=== PATIENT | female | born 1950 | race Caucasian/White ===

== ENCOUNTER 2019-04-23 15:22 | Inpatient (IN) ==
--- OUTSIDE RECORDS SUMMARY | 2019-04-23 15:25 | External Medical Summary | Continuity of Care Document ---
:1950 Author Name Alireza Kenny Address Unavailable Unavailable , Care Team Providers Name Role Phone NonMNPG M.D. Unavailable [email or web address] [email or web address], NO Unavailable Unavailable Problems Active medical history not documented Allergies and Adverse Reactions Allergy history not documented Medications Medications not documented Procedures Procedures not documented Immunizations Immunizations not documented Plan of Treatment Planned Observations Planned Goals not documented Results No Known Results Results not documented
[2019-04-23] MEDS ORDERED: SODIUM CHLORIDE 0.9% 1000ML 1,000 ML IV ONE (15:27)
[2019-04-23] MEDS ORDERED: PIPERACILLIN/TAZOBACTAM 4.5 GM/120 ML BAG IV ONE (15:27)
[2019-04-23] MEDS ORDERED: PIPERACILL/TAZOBAC CONSULT ACTIVE PRN (15:27)
[2019-04-23 15:41] LABS: Basophils # (auto) 0.03 K/uL (0-0.2); Basophils % (auto) 0.3 %; Eosinophils # (auto) 0.26 K/uL (0-0.5); Eosinophils % (auto) 2.8 %; Hematocrit (blood only) 40.6 % (37-47); Hemoglobin 13.9 g/dL (12.0-16.0); Immature Granulocytes # (auto) 0.03 K/uL (0.00-0.02); Immature Granulocytes % (auto) 0.3 %; Lymphocytes # (auto) 2.79 K/uL (1.2-3.4); Lymphocytes % (auto) 29.6 %; Mean Corpuscular Hgb Conc 34.2 g/dL (32-36); Mean Corpuscular Volume 89.6 fL (80-100); Mean Platelet Volume 9.5 fL (7.4-10.4); Monocytes # (auto) 0.76 K/uL (0.11-0.59); Monocytes % (auto) 8.1 %; Neutrophils # (auto) 5.56 K/uL (1.4-6.5); Neutrophils % (auto) 58.9 %; Platelet Count 270 K/uL (130-400); RDW Coefficient of Variation 14.9 % (11.5-14.5); RDW Standard Deviation 48.4 fL (36.4-46.3); Red Blood Count 4.53 M/uL (4.2-5.4); White Blood Count 9.43 K/uL (4.8-10.8)
[2019-04-23] MEDS ORDERED: PROPOFOL IV EMULSION 10 MG/ML 100 ML VIAL IV ONE (15:41)
[2019-04-23] MEDS ORDERED: PROPOFOL 1,000 MG/100 ML VIAL IV SCH (15:57)
--- NOTE | 2019-04-23 16:05 | XRay Report ---
XR femur LT 2V routine CLINICAL HISTORY: fall trauma. Pain. COMPARISON: None. DISCUSSION: Severely limited exam due to patient body habitus. Pre-existing total left knee arthropla sty. Nondiagnostic evaluation of the left hip. There is no evidence for soft tissue swelling. IMPRESSION: 1. Severely limited exam due to body habitus. 2. Nondiagnostic evaluation of the left hip 3. The remainder of the femur is intact The above report was generated using voice recognition software. It may contain grammatical, syntax or spelling errors. Electronically signed by: Jignesh Davis M.D. 04/23/2019 4:04 PM
--- NOTE | 2019-04-23 16:06 | XRay Report ---
XR chest 1V portable CLINICAL HISTORY: Sepsis dyspnea COMPARISON STUDY: 05/11/2009 FINDINGS: Endotracheal tube 2 cm above the guilherme. Mild nonspecific prominence of bronchovascular mar kings. Diaphragms are smooth. Slight prominence left mid lung markings IMPRESSION: Endotracheal tube 2 cm above the guilherme. Potential early parenchymal infiltrate left mid lung. The above report was generated using voice recognition software. It may contain grammatical, syntax or spelling errors. Electronically signed by: Jignesh Davis M.D. 04/23/2019 4:05 PM
[2019-04-23 16:07] LABS: Base Excess VBG 5.4 mEq/L; Oxygen Saturation VBG 73.5 %; pH VBG 7.37 (7.36-7.41)
[2019-04-23 16:19] LABS: Alanine Aminotransferase 28 U/L (12-78); Albumin Globulin Ratio 0.7 (0.9-2); Albumin Level 3.2 gm/dl (3.4-5.0); Alkaline Phosphatase 137 U/L (45-117); BUN Creatinine Ratio 11.1 (10-20); Bilirubin,Total 0.3 mg/dl (0.2-1); Blood Urea Nitrogen 12 mg/dl (7-18); C Reactive Protein 0.72 mg/dl (0-0.29); Calcium 8.6 mg/dl (8.5-10.1); Carbon Dioxide 27 mmol/L (21-32); Chloride 103 mmol/L (98-107); Creatinine Clr Calc Pharmacy 65.6 ml/min; Est GFR (African American) 61.3; Est GFR (Non-African American) 52.9; Globulin 4.4 gm/dl (2.5-4.0); Glucose 192 mg/dl (70-99); NT Pro B Type Natriuretic Pept 80 pg/ml (0-900); Total Protein 7.6 gm/dl (6.4-8.2); Troponin I < 0.015 ng/ml (0-0.045)
[2019-04-23 16:25] LABS: Appearance Urine Cloudy (Clear); Bacteria Urine Automated Negative (Negative); Bilirubin Urine Negative (Negative); Blood Urine Trace (Negative); Color Urine Yellow; Epithelial Cell Urine Auto >30 /lpf (0-5); Glucose Urine UA Negative (Negative); Ketones Urine Negative (Negative); Leukocyte Esterase Urine Negative (Negative); Nitrite Urine Negative (Negative); Protein Urine Negative (Negative); Specific Gravity Urine 1.007 (1.000-1.030); Urobilinogen Urine Negative (Negative)
[2019-04-23 16:29] LABS: Prothrombin Time 9.9 Seconds (9.0-12.0)
[2019-04-23 16:31] LABS: Potassium 4.7 mmol/L (3.5-5.1); Sodium 138 mmol/L (136-145)
[2019-04-23 16:32] LABS: iSTAT Creatinine 1.1 mg/dl (0.6-1.3); iSTAT Hemoglobin 14.3 g/dl (12.0-16.0); iSTAT Ionized Calcium 1.1 mmol/l (1.12-1.32); iSTAT Potassium 4.4 mEq/L (3.3-5.0)
[2019-04-23 16:39] LABS: Aspartate Aminotransferase 24 U/L (15-37); Magnesium 2.1 mg/dl (1.8-2.4)
[2019-04-23 16:40] LABS: RBC Urine Automated 0-4 /hpf (0-4)
[2019-04-23] MEDS ORDERED: OPTIRAY 320 125ml IV PRN (16:43)
[2019-04-23 16:45] LABS: Amphetamines+Metham, Urine Neg (Neg); Barbiturates, Urine Neg (Neg); Benzodiazepine, Urine Neg (Neg); Cocaine, Urine Neg (Neg); MDMA (Ecstacy), Urine Neg (Neg); Methadone, Urine Neg (Neg); Opiate, Urine Neg (Neg); Phencyclidine, Urine Neg (Neg)
--- NOTE | 2019-04-23 16:48 | CT Scan Report ---
CT head/brain wo con CLINICAL HISTORY: Unresponsive patient status post head trauma COMPARISON STUDY: 01/20/2010 TECHNIQUE: Axial CT of the brain is performed from the vertex to the skull base. IV contrast was not administered for this examination. A dose lowering technique was utilized adhering to the principles of ALARA. CT DOSE: FINDINGS: No intra or extra-axial mass lesions are visualized. There is no CT evidence of acute cortical infarc tion. There is no evidence of midline shift. There is no acute hemorrhage. No calvarial fractures ar e visualized. There are patchy white matter hypodensities likely on a small vessel basis. There is an old right bas al ganglia lacunar infarct There is no evidence of pathologic ventricular dilatation. There is mild basal ganglial mineralization. There is no evidence of acute sinusitis. There is fluid within the nasopharynx. IMPRESSION: No acute intracranial findings Electronically signed by: Alexis Ta M.D. 04/23/2019 4:47 PM
--- NOTE | 2019-04-23 16:51 | CT Scan Report ---
CT OF THE CERVICAL SPINE CLINICAL HISTORY: Trauma. Patient is unresponsive. COMPARISON STUDY: No previous studies for comparison. CT DOSE: TECHNIQUE: CT scan of the cervical spine was performed from the skull base to the thoracic inlet. Virginie ges are reviewed in the axial, sagittal, and coronal planes. IV contrast was not administered for thi s examination. A dose lowering technique was utilized adhering to the principles of ALARA. FINDINGS: An endotracheal tube is visualized. There is fluid in nasopharynx. There is prevertebral soft tissue widening/edema. No acute fractures or subluxations are visualized. There are multilevel degenerative changes IMPRESSION: 1. Prevertebral soft tissue edema 2. Multilevel degenerative change 3. No acute fractures or traumatic subluxations identified. Electronically signed by: Alexis Ta M.D. 04/23/2019 4:50 PM
--- NOTE | 2019-04-23 16:56 | CT Scan Report ---
CT ANGIOGRAM OF THE CHEST CLINICAL HISTORY: Trauma. Unresponsive patient. Possible pulmonary embolus. COMPARISON STUDY: No previous studies for comparison. TECHNIQUE: Following the IV administration of 119 mL of Optiray-320, CT angiogram of the thorax was p erformed from the thoracic inlet to the lung bases utilizing the pulmonary embolus protocol. Images a re reviewed in the axial, sagittal, and coronal planes. IV contrast was administered without complica tion. MIP imaging was performed. A dose lowering technique was utilized adhering to the principles o f ALARA. CT DOSE: 3558.72 mGy.cm FINDINGS: No pathologically enlarged axillary mediastinal or hilar lymph nodes were visualized. There was no evidence of thoracic aortic dilatation. There were no pulmonary artery filling defects to indicate acute pulmonary embolism. No pleural effusions are visualized. There is an endotracheal tube with its tip 1 cm above the guilherme. There are bilateral pulmonary airsp yelena opacities, most pronounced within the left lower lobe and right upper lobe. Diagnostic considerat ions include atelectasis, pneumonia, or aspiration. IMPRESSION: 1. No evidence of acute pulmonary embolism 2. Endotracheal tube positioned with its tip 1 cm above the guilherme. 3. Bilateral pulmonary airspace opacities. Atelectasis versus multifocal pneumonia versus aspiration. Electronically signed by: Alexis Ta M.D. 04/23/2019 4:55 PM
--- NOTE | 2019-04-23 16:58 | CT Scan Report ---
CT abd pelvis IV con only CT DOSE: HISTORY: Trauma fall TECHNIQUE: Multiaxial CT images of the abdomen and pelvis were performed following the use of intrave nous contrast. A dose lowering technique was utilized adhering to the principles of ALARA. COMPARISON STUDY: None. FINDINGS: Left basilar parenchymal infiltrate. Atelectasis right base. Mild fatty replacement of the liver. The adrenal glands are normal. Moderate cortical scarring of the kidneys bilaterally. No evide nce for hydronephrosis. Nonobstructive bowel pattern. There is a Santos catheter within a collapsed bl adder. No significant free fluid within the pelvic cul-de-sac. IMPRESSION: 1. Left basilar parenchymal infiltrate with mild right basilar dependent atelectasis. 2. Otherwise no acute process in the abdomen or pelvis. 3. Degenerative changes of the low thoracic and lumbar spine with no acute posttraumatic abnormality. The above report was generated using voice recognition software. It may contain grammatical, syntax or spelling errors. Electronically signed by: Jignesh Davis M.D. 04/23/2019 4:57 PM
[2019-04-23] MEDS ORDERED: fentaNYL citrate 100 MCG/2 ML VIAL ONE (17:27)
[2019-04-23] MEDS ORDERED: fentaNYL citrate 100 MCG/2 ML VIAL IV ONE (17:38)
[2019-04-23 18:33] LABS: Total Protein CSF 90.3 mg/dl (15-45)
--- NOTE | 2019-04-23 18:33 | Critical Care Consultation ---
Date of Consultation April 23, 2019 Assessment & Plan (1) Acute encephalopathy: Reason Critically Ill: 69-year-old female with acute encephalopathy and acute hypoxic respiratory failure requiring intubation PLAN: Neuro: Acute encephalopathy -This appears to have resolved. She does not see appear to have a focal neurologic exam -MRI to rule out CVA versus TIA -EEG to rule out seizure with postictal period. Resp: Acute hypoxic respiratory failure -Probable atelectasis possible aspiration -Patient's procalcitonin is negative, discontinue antibiotics -Patient successfully liberated from ventilator while in the emergency department. CV: Hypertension -Continue home antihypertensives Fluids/Renal: Creatinine within normal limits -Doubt gabapentin overdose with normal renal function and rapid improvement in mental status ID: Initial broad-spectrum antibiotics given emergency department since discontinued -Lactic acid normal, procalcitonin normal, white count normal, afebrile GI/Nutrition: N.p.o. until tomorrow morning Heme: DVT prophylaxis: Lovenox Endocrine: ICU hyperglycemia protocol Baseline diabetes Vascular access: Peripheral IVs Code Status: Full code I have personally spent 85 minutes of critical care time in the direct management of this patient. This is a life/limb threatening event. This includes time spent evaluating patient, direct bedside care, chart review, placing orders, interpretation of diagnostic studies, discussion with consultants, patient, and/or family members regarding treatment decisions, as well as other required patient management activities. This time is exclusive of all separately billable procedures, and teaching time and separate from and in addition to any other critical care service time. (2) Respiratory failure with hypoxia: History of Present Illness Reason for Consultation: Acute respiratory failure Requesting Physician: Isaac Esquviel Attending Physician: Raquel LYNN History of Present Illness Patient 69-year-old female who was found in her apartment complex relatively unresponsive. They called [facility] to evaluate her found that she was experiencing decreased responsiveness and transported to [facility] for further evaluation. On [facility] she continued to drop her oxygen saturation and was significantly altered per ED physician report with a GCS around 6 and the intubated the patient. A extensive work-up was undertaken including lumbar puncture results of which are still pending at this time however the patient had significantly increasing responsiveness. During my evaluation in the emergency department she is able to follow complex commands on minimal vent settings and we proceeded with extubation. Subsequent to the extubation she does not have a significant recall of what oc curred today. In review of her medication lists she is on gabapentin, Lexapro, clonazepam, doxepin. There is a possibility she may have taken an additional dose of medication she does not have a pillbox and her belongings with her. She denies chest pain. She denies fevers or chills. She denies urgency frequency or burning with urination. Allergies Allergy/AdvReac Type Severity Reaction Status Date / Time latex Allergy Unknown rash Verified 01/23/12 11:02 Home Medications Home Medications Medication Instructions Recorded Confirmed Type atorvastatin 80 mg PO HS 04/23/19 04/23/19 History buspirone 5 mg PO BID 04/23/19 04/23/19 History clonazepam 1 mg PO BID 04/23/19 04/23/19 History doxepin 25 mg PO HS 04/23/19 04/23/19 History ergocalciferol (vitamin D2) 50,000 unit PO UD 04/23/19 04/23/19 History [Vitamin D2] escitalopram oxalate 30 mg PO QAM 04/23/19 04/23/19 History gabapentin 300 mg PO TID 04/23/19 04/23/19 History linagliptin [Tradjenta] 5 mg PO DAILY 04/23/19 04/23/19 History lisinopril 2.5 mg PO DAILY 04/23/19 04/23/19 History Patient History Medical History Stomach problems Emphysema lung Diabetes HTN (hypertension) Heart disease Family History Other Diabetes Heart disease Hypertension Social History Feels Safe at Home: Yes Smoking Status: Unknown if ever smoked Review of Systems Review of Systems: All systems reviewed & are unremarkable except as noted in HPI & below Physical Exam Physical Exam: General: Elderly female appears older than her stated age I have reviewed the recorded vital signs Neurological: RASS score: 0, Moves all 4 extremities, cranial nerves II through XII appear to be intact, no pronator drift. Possible extinction of both the upper and lower extremities however the patient is still recovering from propofol sedation. Psychological: GCS 15 following complex commands Eyes: Pupils are equal, round and reactive to light, anicteric sclera. Symmetrical lids. HENT: Oropharynx is clear, edentulous, moist mucous membranes. Neck: Supple. Symmetric. trachea midline. No thyromegaly. Cardiovascular: Normal peripheral perfusion. Distal pulses and capillary refill intact. No JVD. Respiratory: Respirations are non-labored, no accessory muscle use. Breath sounds are equal. Gastrointestinal: Soft. Non-distended. Lymphatic: No cervical lymphadenopathy. Musculoskeletal: No deformity. No clubbing nor cyanosis., 5 out of 5 strength of both the bilateral upper and lower extremities Results & Data Vital Signs (Past 12 Hours) Vital Signs Temp Pulse Pulse Resp BP BP Pulse Ox 04/23/19 18:15 99 H 20 113/72 96 04/23/19 17:51 108 H 20 133/93 98 04/23/19 17:40 110 H 20 131/86 98 04/23/19 17:03 101 H 12 183/116 H 95 04/23/19 16:56 12 04/23/19 16:55 107 H 12 195/122 H 93 04/23/19 16:52 109 H 12 188/144 H 93 04/23/19 16:20 108 H 12 192/122 H 96 04/23/19 16:04 100 04/23/19 15:54 37.5 C 91 H 14 132/70 100 04/23/19 15:51 113 H 12 100 Laboratory Results 04/23/19 04/23/19 04/23/19 Range/Units 17:30 17:30 17:30 WBC (4.8-10.8) K/uL RBC (4.2-5.4) M/uL Hgb (12.0-16.0) g/dL POC Hgb (12.0-16.0) g/dl Hct (37-47) % POC Hct (37-47) % MCV (80-100) fL MCH (25-34) pg MCHC (32-36) g/dL RDW Std Deviation (36.4-46.3) fL RDW Coeff of Diego (11.5-14.5) % Plt Count (130-400) K/uL MPV (7.4-10.4) fL Immature Gran % (Auto) % Neut % (Auto) % Lymph % (Auto) % [place] % (Auto) % Eos % (Auto) % Baso % (Auto) % Immature Gran # (Auto) (0.00-0.02) K/uL Neut # (Auto) (1.4-6.5) K/uL Lymph # (Auto) (1.2-3.4) K/uL [place] # (Auto) (0.11-0.59) K/uL Eos # (Auto) (0-0.5) K/uL Baso # (Auto) (0-0.2) K/uL ESR (0-21) mm/hr PT INR APTT PTT Ratio VBG pH (7.36-7.41) VBG pCO2 (38-50) mmHg VBG pO2 mmHg VBG HCO3 mmol/L VBG O2 Saturation % VBG Base Excess mEq/L Barometric Pressure mm/Hg POC Sodium (135-144) mEq/L Sodium (136-145) mmol/L POC Potassium (3.3-5.0) mEq/L Potassium (3.5-5.1) mmol/L POC Chloride (101-112) mEq/L Chloride (98-107) mmol/L Carbon Dioxide (21-32) mmol/L POC Total CO2 (24-31) mEq/l Anion Gap (3-11) POC Anion Gap (16-25) mmol/L POC BUN (7-18) mg/dl BUN (7-18) mg/dl Creatinine (0.6-1.2) mg/dl POC Creatinine (0.6-1.3) mg/dl Est Cr Clr Drug Dosing ml/min Est GFR ( Amer) Est GFR (Non-Af Amer) BUN/Creatinine Ratio (10-20) Glucose (70-99) mg/dl POC Glucose (other) (70-99) mg/dl Osmolality (280-300) mOsm/kg Lactate (0.4-2.0) mmol/L Calcium (8.5-10.1) mg/dl POC Ioniz Calcium Ale (1.12-1.32) mmol/l Magnesium (1.8-2.4) mg/dl Total Bilirubin (0.2-1) mg/dl AST (15-37) U/L ALT (12-78) U/L Alkaline Phosphatase (45-117) U/L Troponin I (0-0.045) ng/ml C-Reactive Protein (0-0.29) mg/dl NT-Pro-B Natriuret Pep (0-900) pg/ml Total Protein (6.4-8.2) gm/dl Albumin (3.4-5.0) gm/dl Globulin (2.5-4.0) gm/dl Albumin/Globulin Ratio (0.9-2) Procalcitonin (0-0.5) ng/ml Urine Color Urine Appearance (Clear) Urine pH (4.5-7.5) Ur Specific [place] (1.000-1.030) Urine Protein (Negative) Urine Glucose (UA) (Negative) Urine Ketones (Negative) Urine Blood (Negative) Urine Nitrite (Negative) Urine Bilirubin (Negative) Urine Urobilinogen (Negative) Ur Leukocyte Esterase (Negative) Urine WBC (Auto) (0-5) /hpf Urine RBC (Auto) (0-4) /hpf U Hyaline Cast (Auto) (0-5) /lpf U Epithel Cells (Auto) (0-5) /lpf Urine Bacteria (Auto) (Negative) Urine Yeast (None Prsent) CSF Appearance Pending CSF Color Pending Xanthrochromic Pending CSF WBC Pending CSF RBC Pending CSF Cell Count Tube # Pending CSF Chemistry Tube # Pending CSF Glucose Pending CSF Total Protein Cancelled Pending Urine Opiates Screen (Neg) Ur Methadone, Qual (Neg) Urine Barbiturates (Neg) Ur Phencyclidine (PCP) (Neg) U Amphetamin/Meth Scrn (Neg) MDMA (Ecstasy) Screen (Neg) U Benzodiazepines Scrn (Neg) Ur Cocaine Metabolite (Neg) U Marijuana (THC) Screen (Neg) Ethyl Alcohol mg/dL (0-3) mg/dl 04/23/19 04/23/19 04/23/19 Range/Units 16:19 16:03 15:47 WBC (4.8-10.8) K/uL RBC (4.2-5.4) M/uL Hgb (12.0-16.0) g/dL POC Hgb 14.3 (12.0-16.0) g/dl Hct (37-47) % POC Hct 42 (37-47) % MCV (80-100) fL MCH (25-34) pg MCHC (32-36) g/dL RDW Std Deviation (36.4-46.3) fL RDW Coeff of [place] (11.5-14.5) % Plt Count (130-400) K/uL MPV (7.4-10.4) fL Immature Gran % (Auto) % Neut % (Auto) % Lymph % (Auto) % [place] % (Auto) % Eos % (Auto) % Baso % (Auto) % Immature Gran # (Auto) (0.00-0.02) K/uL Neut # (Auto) (1.4-6.5) K/uL Lymph # (Auto) (1.2-3.4) K/uL [place] # (Auto) (0.11-0.59) K/uL Eos # (Auto) (0-0.5) K/uL Baso # (Auto) (0-0.2) K/uL ESR (0-21) mm/hr PT 9.9 INR 1.0 APTT PTT Ratio VBG pH (7.36-7.41) VBG pCO2 (38-50) mmHg VBG pO2 mmHg VBG HCO3 mmol/L VBG O2 Saturation % VBG Base Excess mEq/L Barometric Pressure mm/Hg POC Sodium 139 (135-144) mEq/L Sodium (136-145) mmol/L POC Potassium 4.4 (3.3-5.0) mEq/L Potassium (3.5-5.1) mmol/L POC Chloride 100 L (101-112) mEq/L Chloride (98-107) mmol/L Carbon Dioxide (21-32) mmol/L POC Total CO2 29 (24-31) mEq/l Anion Gap (3-11) POC Anion Gap 15.0 L (16-25) mmol/L POC BUN 11 (7-18) mg/dl BUN (7-18) mg/dl Creatinine (0.6-1.2) mg/dl POC Creatinine 1.1 (0.6-1.3) mg/dl Est Cr Clr Drug Dosing ml/min Est GFR ( Amer) Est GFR (Non-Af Amer) BUN/Creatinine Ratio (10-20) Glucose (70-99) mg/dl POC Glucose (other) 147 H (70-99) mg/dl Osmolality (280-300) mOsm/kg Lactate (0.4-2.0) mmol/L Calcium (8.5-10.1) mg/dl POC Ioniz Calcium Ale 1.10 L (1.12-1.32) mmol/l Magnesium (1.8-2.4) mg/dl Total Bilirubin (0.2-1) mg/dl AST (15-37) U/L ALT (12-78) U/L Alkaline Phosphatase (45-117) U/L Troponin I (0-0.045) ng/ml C-Reactive Protein (0-0.29) mg/dl NT-Pro-B Natriuret Pep (0-900) pg/ml Total Protein (6.4-8.2) gm/dl Albumin (3.4-5.0) gm/dl Globulin (2.5-4.0) gm/dl Albumin/Globulin Ratio (0.9-2) Procalcitonin (0-0.5) ng/ml Urine Color Urine Appearance (Clear) Urine pH (4.5-7.5) Ur Specific [place] (1.000-1.030) Urine Protein (Negative) Urine Glucose (UA) (Negative) Urine Ketones (Negative) Urine Blood (Negative) Urine Nitrite (Negative) Urine Bilirubin (Negative) Urine Urobilinogen (Negative) Ur Leukocyte Esterase (Negative) Urine WBC (Auto) (0-5) /hpf Urine RBC (Auto) (0-4) /hpf U Hyaline Cast (Auto) (0-5) /lpf U Epithel Cells (Auto) (0-5) /lpf Urine Bacteria (Auto) (Negative) Urine Yeast (None Prsent) CSF Appearance CSF Color Xanthrochromic CSF WBC CSF RBC CSF Cell Count Tube # CSF Chemistry Tube # CSF Glucose CSF Total Protein Urine Opiates Screen Neg (Neg) Ur Methadone, Qual Neg (Neg) Urine Barbiturates Neg (Neg) Ur Phencyclidine (PCP) Neg (Neg) U Amphetamin/Meth Scrn Neg (Neg) MDMA (Ecstasy) Screen Neg (Neg) U Benzodiazepines Scrn Neg (Neg) Ur Cocaine Metabolite Neg (Neg) U Marijuana (THC) Screen Neg (Neg) Ethyl Alcohol mg/dL (0-3) mg/dl 04/23/19 04/23/19 04/23/19 Range/Units 15:47 15:40 15:40 WBC (4.8-10.8) K/uL RBC (4.2-5.4) M/uL Hgb (12.0-16.0) g/dL POC Hgb (12.0-16.0) g/dl Hct (37-47) % POC Hct (37-47) % MCV (80-100) fL MCH (25-34) pg MCHC (32-36) g/dL RDW Std Deviation (36.4-46.3) fL RDW Coeff of [place] (11.5-14.5) % Plt Count (130-400) K/uL MPV (7.4-10.4) fL Immature Gran % (Auto) % Neut % (Auto) % Lymph % (Auto) % [place] % (Auto) % Eos % (Auto) % Baso % (Auto) % Immature Gran # (Auto) (0.00-0.02) K/uL Neut # (Auto) (1.4-6.5) K/uL Lymph # (Auto) (1.2-3.4) K/uL [place] # (Auto) (0.11-0.59) K/uL Eos # (Auto) (0-0.5) K/uL Baso # (Auto) (0-0.2) K/uL ESR (0-21) mm/hr PT INR APTT PTT Ratio VBG pH 7.37 (7.36-7.41) VBG pCO2 57 H (38-50) mmHg VBG pO2 41 mmHg VBG HCO3 33 mmol/L VBG O2 Saturation 73.5 % VBG Base Excess 5.4 mEq/L Barometric Pressure 731.6 mm/Hg POC Sodium (135-144) mEq/L Sodium (136-145) mmol/L POC Potassium (3.3-5.0) mEq/L Potassium (3.5-5.1) mmol/L POC Chloride (101-112) mEq/L Chloride (98-107) mmol/L Carbon Dioxide (21-32) mmol/L POC Total CO2 (24-31) mEq/l Anion Gap (3-11) POC Anion Gap (16-25) mmol/L POC BUN (7-18) mg/dl BUN (7-18) mg/dl Creatinine (0.6-1.2) mg/dl POC Creatinine (0.6-1.3) mg/dl Est Cr Clr Drug Dosing ml/min Est GFR ( Amer) Est GFR (Non-Af Amer) BUN/Creatinine Ratio (10-20) Glucose (70-99) mg/dl POC Glucose (other) (70-99) mg/dl Osmolality (280-300) mOsm/kg Lactate (0.4-2.0) mmol/L Calcium (8.5-10.1) mg/dl POC Ioniz Calcium Ale (1.12-1.32) mmol/l Magnesium (1.8-2.4) mg/dl Total Bilirubin (0.2-1) mg/dl AST (15-37) U/L ALT (12-78) U/L Alkaline Phosphatase (45-117) U/L Troponin I (0-0.045) ng/ml C-Reactive Protein (0-0.29) mg/dl NT-Pro-B Natriuret Pep (0-900) pg/ml Total Protein (6.4-8.2) gm/dl Albumin (3.4-5.0) gm/dl Globulin (2.5-4.0) gm/dl Albumin/Globulin Ratio (0.9-2) Procalcitonin (0-0.5) ng/ml Urine Color Yellow Urine Appearance Cloudy A (Clear) Urine pH 7.0 (4.5-7.5) Ur Specific [place] 1.007 (1.000-1.030) Urine Protein Negative (Negative) Urine Glucose (UA) Negative (Negative) Urine Ketones Negative (Negative) Urine Blood Trace H (Negative) Urine Nitrite Negative (Negative) Urine Bilirubin Negative (Negative) Urine Urobilinogen Negative (Negative) Ur Leukocyte Esterase Negative (Negative) Urine WBC (Auto) 1-5 (0-5) /hpf Urine RBC (Auto) 0-4 (0-4) /hpf U Hyaline Cast (Auto) 1-5 (0-5) /lpf U Epithel Cells (Auto) >30 H (0-5) /lpf Urine Bacteria (Auto) Negative (Negative) Urine Yeast Present A (None Prsent) CSF Appearance CSF Color Xanthrochromic CSF WBC CSF RBC CSF Cell Count Tube # CSF Chemistry Tube # CSF Glucose CSF Total Protein Urine Opiates Screen (Neg) Ur Methadone, Qual (Neg) Urine Barbiturates (Neg) Ur Phencyclidine (PCP) (Neg) U Amphetamin/Meth Scrn (Neg) MDMA (Ecstasy) Screen (Neg) U Benzodiazepines Scrn (Neg) Ur Cocaine Metabolite (Neg) U Marijuana (THC) Screen (Neg) Ethyl Alcohol mg/dL < 3.0 (0-3) mg/dl 04/23/19 04/23/19 04/23/19 Range/Units 15:40 15:06 15:06 WBC (4.8-10.8) K/uL RBC (4.2-5.4) M/uL Hgb (12.0-16.0) g/dL POC Hgb (12.0-16.0) g/dl Hct (37-47) % POC Hct (37-47) % MCV (80-100) fL MCH (25-34) pg MCHC (32-36) g/dL RDW Std Deviation (36.4-46.3) fL RDW Coeff of Diego (11.5-14.5) % Plt Count (130-400) K/uL MPV (7.4-10.4) fL Immature Gran % (Auto) % Neut % (Auto) % Lymph % (Auto) % [place] % (Auto) % Eos % (Auto) % Baso % (Auto) % Immature Gran # (Auto) (0.00-0.02) K/uL Neut # (Auto) (1.4-6.5) K/uL Lymph # (Auto) (1.2-3.4) K/uL [place] # (Auto) (0.11-0.59) K/uL Eos # (Auto) (0-0.5) K/uL Baso # (Auto) (0-0.2) K/uL ESR (0-21) mm/hr PT INR APTT PTT Ratio VBG pH (7.36-7.41) VBG pCO2 (38-50) mmHg VBG pO2 mmHg VBG HCO3 mmol/L VBG O2 Saturation % VBG Base Excess mEq/L Barometric Pressure mm/Hg POC Sodium (135-144) mEq/L Sodium 138 (136-145) mmol/L POC Potassium (3.3-5.0) mEq/L Potassium 4.7 (3.5-5.1) mmol/L POC Chloride (101-112) mEq/L Chloride 103 (98-107) mmol/L Carbon Dioxide 27 (21-32) mmol/L POC Total CO2 (24-31) mEq/l Anion Gap 8.0 (3-11) POC Anion Gap (16-25) mmol/L POC BUN (7-18) mg/dl BUN 12 (7-18) mg/dl Creatinine 1.07 (0.6-1.2) mg/dl POC Creatinine (0.6-1.3) mg/dl Est Cr Clr Drug Dosing 65.6 ml/min Est GFR ( Amer) 61.3 Est GFR (Non-Af Amer) 52.9 BUN/Creatinine Ratio 11.1 (10-20) Glucose 192 H (70-99) mg/dl POC Glucose (other) (70-99) mg/dl Osmolality 296 (280-300) mOsm/kg Lactate 1.9 (0.4-2.0) mmol/L Calcium 8.6 (8.5-10.1) mg/dl POC Ioniz Calcium Ale (1.12-1.32) mmol/l Magnesium 2.1 (1.8-2.4) mg/dl Total Bilirubin 0.3 (0.2-1) mg/dl AST 24 (15-37) U/L ALT 28 (12-78) U/L Alkaline Phosphatase 137 H (45-117) U/L Troponin I < 0.015 (0-0.045) ng/ml C-Reactive Protein 0.72 H (0-0.29) mg/dl NT-Pro-B Natriuret Pep 80 (0-900) pg/ml Total Protein 7.6 (6.4-8.2) gm/dl Albumin 3.2 L (3.4-5.0) gm/dl Globulin 4.4 H (2.5-4.0) gm/dl Albumin/Globulin Ratio 0.7 L (0.9-2) Procalcitonin (0-0.5) ng/ml Urine Color Urine Appearance (Clear) Urine pH (4.5-7.5) Ur Specific [place] (1.000-1.030) Urine Protein (Negative) Urine Glucose (UA) (Negative) Urine Ketones (Negative) Urine Blood (Negative) Urine Nitrite (Negative) Urine Bilirubin (Negative) Urine Urobilinogen (Negative) Ur Leukocyte Esterase (Negative) Urine WBC (Auto) (0-5) /hpf Urine RBC (Auto) (0-4) /hpf U Hyaline Cast (Auto) (0-5) /lpf U Epithel Cells (Auto) (0-5) /lpf Urine Bacteria (Auto) (Negative) Urine Yeast (None Prsent) CSF Appearance CSF Color Xanthrochromic CSF WBC CSF RBC CSF Cell Count Tube # CSF Chemistry Tube # CSF Glucose CSF Total Protein Urine Opiates Screen (Neg) Ur Methadone, Qual (Neg) Urine Barbiturates (Neg) Ur Phencyclidine (PCP) (Neg) U Amphetamin/Meth Scrn (Neg) MDMA (Ecstasy) Screen (Neg) U Benzodiazepines Scrn (Neg) Ur Cocaine Metabolite (Neg) U Marijuana (THC) Screen (Neg) Ethyl Alcohol mg/dL (0-3) mg/dl 04/23/19 04/23/19 04/23/19 Range/Units 15:06 15:06 15:06 WBC 9.43 (4.8-10.8) K/uL RBC 4.53 (4.2-5.4) M/uL Hgb 13.9 (12.0-16.0) g/dL POC Hgb (12.0-16.0) g/dl Hct 40.6 (37-47) % POC Hct (37-47) % MCV 89.6 (80-100) fL MCH 30.7 (25-34) pg MCHC 34.2 (32-36) g/dL RDW Std Deviation 48.4 H (36.4-46.3) fL RDW Coeff of [place] 14.9 H (11.5-14.5) % Plt Count 270 (130-400) K/uL MPV 9.5 (7.4-10.4) fL Immature Gran % (Auto) 0.3 % Neut % (Auto) 58.9 % Lymph % (Auto) 29.6 % [place] % (Auto) 8.1 % Eos % (Auto) 2.8 % Baso % (Auto) 0.3 % Immature Gran # (Auto) 0.03 H (0.00-0.02) K/uL Neut # (Auto) 5.56 (1.4-6.5) K/uL Lymph # (Auto) 2.79 (1.2-3.4) K/uL [place] # (Auto) 0.76 H (0.11-0.59) K/uL Eos # (Auto) 0.26 (0-0.5) K/uL Baso # (Auto) 0.03 (0-0.2) K/uL ESR 69 H (0-21) mm/hr PT Cancelled INR Cancelled APTT Cancelled PTT Ratio Cancelled VBG pH (7.36-7.41) VBG pCO2 (38-50) mmHg VBG pO2 mmHg VBG HCO3 mmol/L VBG O2 Saturation % VBG Base Excess mEq/L Barometric Pressure mm/Hg POC Sodium (135-144) mEq/L Sodium (136-145) mmol/L POC Potassium (3.3-5.0) mEq/L Potassium (3.5-5.1) mmol/L POC Chloride (101-112) mEq/L Chloride (98-107) mmol/L Carbon Dioxide (21-32) mmol/L POC Total CO2 (24-31) mEq/l Anion Gap (3-11) POC Anion Gap (16-25) mmol/L POC BUN (7-18) mg/dl BUN (7-18) mg/dl Creatinine (0.6-1.2) mg/dl POC Creatinine (0.6-1.3) mg/dl Est Cr Clr Drug Dosing ml/min Est GFR ( Amer) Est GFR (Non-Af Amer) BUN/Creatinine Ratio (10-20) Glucose (70-99) mg/dl POC Glucose (other) (70-99) mg/dl Osmolality (280-300) mOsm/kg Lactate (0.4-2.0) mmol/L Calcium (8.5-10.1) mg/dl POC Ioniz Calcium Ale (1.12-1.32) mmol/l Magnesium (1.8-2.4) mg/dl Total Bilirubin (0.2-1) mg/dl AST (15-37) U/L ALT (12-78) U/L Alkaline Phosphatase (45-117) U/L Troponin I (0-0.045) ng/ml C-Reactive Protein (0-0.29) mg/dl NT-Pro-B Natriuret Pep (0-900) pg/ml Total Protein (6.4-8.2) gm/dl Albumin (3.4-5.0) gm/dl Globulin (2.5-4.0) gm/dl Albumin/Globulin Ratio (0.9-2) Procalcitonin (0-0.5) ng/ml Urine Color Urine Appearance (Clear) Urine pH (4.5-7.5) Ur Specific [place] (1.000-1.030) Urine Protein (Negative) Urine Glucose (UA) (Negative) Urine Ketones (Negative) Urine Blood (Negative) Urine Nitrite (Negative) Urine Bilirubin (Negative) Urine Urobilinogen (Negative) Ur Leukocyte Esterase (Negative) Urine WBC (Auto) (0-5) /hpf Urine RBC (Auto) (0-4) /hpf U Hyaline Cast (Auto) (0-5) /lpf U Epithel Cells (Auto) (0-5) /lpf Urine Bacteria (Auto) (Negative) Urine Yeast (None Prsent) CSF Appearance CSF Color Xanthrochromic CSF WBC CSF RBC CSF Cell Count Tube # CSF Chemistry Tube # CSF Glucose CSF Total Protein Urine Opiates Screen (Neg) Ur Methadone, Qual (Neg) Urine Barbiturates (Neg) Ur Phencyclidine (PCP) (Neg) U Amphetamin/Meth Scrn (Neg) MDMA (Ecstasy) Screen (Neg) U Benzodiazepines Scrn (Neg) Ur Cocaine Metabolite (Neg) U Marijuana (THC) Screen (Neg) Ethyl Alcohol mg/dL (0-3) mg/dl 04/23/19 Range/Units 15:06 WBC (4.8-10.8) K/uL RBC (4.2-5.4) M/uL Hgb (12.0-16.0) g/dL POC Hgb (12.0-16.0) g/dl Hct (37-47) % POC Hct (37-47) % MCV (80-100) fL MCH (25-34) pg MCHC (32-36) g/dL RDW Std Deviation (36.4-46.3) fL RDW Coeff of [place] (11.5-14.5) % Plt Count (130-400) K/uL MPV (7.4-10.4) fL Immature Gran % (Auto) % Neut % (Auto) % Lymph % (Auto) % [place] % (Auto) % Eos % (Auto) % Baso % (Auto) % Immature Gran # (Auto) (0.00-0.02) K/uL Neut # (Auto) (1.4-6.5) K/uL Lymph # (Auto) (1.2-3.4) K/uL [place] # (Auto) (0.11-0.59) K/uL Eos # (Auto) (0-0.5) K/uL Baso # (Auto) (0-0.2) K/uL ESR (0-21) mm/hr PT INR APTT PTT Ratio VBG pH (7.36-7.41) VBG pCO2 (38-50) mmHg VBG pO2 mmHg VBG HCO3 mmol/L VBG O2 Saturation % VBG Base Excess mEq/L Barometric Pressure mm/Hg POC Sodium (135-144) mEq/L Sodium (136-145) mmol/L POC Potassium (3.3-5.0) mEq/L Potassium (3.5-5.1) mmol/L POC Chloride (101-112) mEq/L Chloride (98-107) mmol/L Carbon Dioxide (21-32) mmol/L POC Total CO2 (24-31) mEq/l Anion Gap (3-11) POC Anion Gap (16-25) mmol/L POC BUN (7-18) mg/dl BUN (7-18) mg/dl Creatinine (0.6-1.2) mg/dl POC Creatinine (0.6-1.3) mg/dl Est Cr Clr Drug Dosing ml/min Est GFR ( Amer) Est GFR (Non-Af Amer) BUN/Creatinine Ratio (10-20) Glucose (70-99) mg/dl POC Glucose (other) (70-99) mg/dl Osmolality (280-300) mOsm/kg Lactate (0.4-2.0) mmol/L Calcium (8.5-10.1) mg/dl POC Ioniz Calcium Ale (1.12-1.32) mmol/l Magnesium (1.8-2.4) mg/dl Total Bilirubin (0.2-1) mg/dl AST (15-37) U/L ALT (12-78) U/L Alkaline Phosphatase (45-117) U/L Troponin I (0-0.045) ng/ml C-Reactive Protein (0-0.29) mg/dl NT-Pro-B Natriuret Pep (0-900) pg/ml Total Protein (6.4-8.2) gm/dl Albumin (3.4-5.0) gm/dl Globulin (2.5-4.0) gm/dl Albumin/Globulin Ratio (0.9-2) Procalcitonin < 0.05 (0-0.5) ng/ml Urine Color Urine Appearance (Clear) Urine pH (4.5-7.5) Ur Specific [place] (1.000-1.030) Urine Protein (Negative) Urine Glucose (UA) (Negative) Urine Ketones (Negative) Urine Blood (Negative) Urine Nitrite (Negative) Urine Bilirubin (Negative) Urine Urobilinogen (Negative) Ur Leukocyte Esterase (Negative) Urine WBC (Auto) (0-5) /hpf Urine RBC (Auto) (0-4) /hpf U Hyaline Cast (Auto) (0-5) /lpf U Epithel Cells (Auto) (0-5) /lpf Urine Bacteria (Auto) (Negative) Urine Yeast (None Prsent) CSF Appearance CSF Color Xanthrochromic CSF WBC CSF RBC CSF Cell Count Tube # CSF Chemistry Tube # CSF Glucose CSF Total Protein Urine Opiates Screen (Neg) Ur Methadone, Qual (Neg) Urine Barbiturates (Neg) Ur Phencyclidine (PCP) (Neg) U Amphetamin/Meth Scrn (Neg) MDMA (Ecstasy) Screen (Neg) U Benzodiazepines Scrn (Neg) Ur Cocaine Metabolite (Neg) U Marijuana (THC) Screen (Neg) Ethyl Alcohol mg/dL (0-3) mg/dl Diagnostic Findings I have reviewed the radiology report of the CTA, abdomen pelvis ED, head CT, femur x-ray, cervical spine CT. PG Care Time/CCT Total # of Minutes Spent Total Time Spent: 85 Total Time Spent with Patient: Total time spent is greater than 50% in coordination of care (as documented) at patient's floor/unit and/or counseling patient: Critical Care Time: Yes Total Critical Care Time: 85 (1) Respiratory failure with hypoxia Chronicity: acute Qualified Code(s): J96.01 - Acute respiratory failure with hypoxia
[2019-04-23 18:40] LABS: Appearance CSF Cloudy; CSF Count Tube # 3; CSF Xanthrochromic No xanthochromia; Color CSF Pink; Red Blood Cell CSF (A) 700 /uL (0-); Red Blood Cell CSF (B) 700 /uL (0-); White Blood Cell CSF (A) 2 /uL (0-5); White Blood Cell CSF (B) 4 /uL (0-5)
[2019-04-23] MEDS ORDERED: ICU PROTOCOL FOR HYPERGLYCEMIA PRN (18:49)
--- NOTE | 2019-04-23 18:54 | History & Physical Report ---
Date of Service April 23, 2019 Assessment & Plan (1) Respiratory failure with hypoxia: (2) Acute encephalopathy: Pt presented to ER with reported GCS 6, hypoxia and was intubated in ER. During ER course pt started to become alert, vitals stable and oxgenating well and was extubated No leukocytosis, lactate and procalcitonin WNL, glucose: 192, otherwise no significant electrolyte abnormality. UA unremarkable. LP results pending CT HEAD: No acute intracranial findings CT C-SPINE: Prevertebral soft tissue edema. Multilevel degenerative change. No acute fractures or traumatic subluxations identified. CTA CHEST: No evidence of acute PE, Bilateral pulmonary airspace opacities. Atelectasis versus multifocal pneumonia versus aspiration. CT ABD/PELVIS: Left basilar parenchymal infiltrate with mild right basilar dependent atelectasis. Otherwise no acute process in the abdomen or pelvis. Degenerative changes of the low thoracic and lumbar spine with no acute posttraumatic abnormality. -ICU to further monitor -Further workup per patient appointment coordinator: MRI, EEG, US carotids -Monitor CBC, BMP (3) Diabetes mellitus, type II: Glucose: 192 -A1c in AM -glucose control per ICU protocol (4) HTN (hypertension): Stable -Continue lisinopril (5) Depression: -Hold buspirone, clonazepam, doxepin for now and monitor mental status -Continue escitalopram (6) Dyslipidemia: -Continue statin DVT Prophylaxis -Lovenox SQ Full Code as per discussion with pt Follows with Dr Jade Qiu - [facility] for routine care Pt was seen and care coordinated with Dr García. See addendum History of Present Illness Chief Complaint: unresponsive Primary Care Provider: Jade Qiu DO Pt is 69 y/o F with PMH HTN, CKD II, RLS, depression, bipolar, obesity, pres ented to ER and upon ER arrival was unresponsive. It is reported pt's neighbor called EMS. During EMS transport pt became unresponsive and she was placed on non-rebreather. In ER pt obtunded, inital vital signs P: 113, R: 14, BP: 132/70. BP increased to 192/122. Pt was intubated. During ER course pt started to arouse, and was seen by patient appointment coordinator and was extubated. Pt now awake but sleepy with stable vital signs. Pt states does not remember what happened today, but reports she thinks she took her morning meds. Pt does not know what medications she is on. She states that she takes them how the bottle says and denies taking any additional doses of medications. Reports only OTC med she uses is Ibuprofen 4 tabs BID for chronic back pain. She states yesterday started with nausea and feeling dizzy. Denies syncope yesterday. She reports recurrent falls. States last week fell backwards and broke her toilet. Reports fell out of pickup truck 2 weeks ago and since has had pain to left upper leg. Has a walker to use. Pt states recently when urinating will have BM at same time but is unable to report if loose or formed stools. Denies dysuria, hematuria, melena or hematochezia. Denies abdominal pain. Pt states for past month has been feeling like SOB. Currently in ER on oxygen via [place] and states that she feels better on oxygen. Denies any CP, cough, fever/chills. Denies current LOPEZ. Further ROS difficult to obtain secondary to pt's drowsiness, probable secondary to recent propofol Allergies Allergy/AdvReac Type Severity Reaction Status Date / Time latex Allergy Unknown rash Verified 01/23/12 11:02 Home Medications Home Medications Medication Instructions Recorded Confirmed Type atorvastatin 80 mg PO HS 04/23/19 04/23/19 History buspirone 5 mg PO BID 04/23/19 04/23/19 History clonazepam 1 mg PO BID 04/23/19 04/23/19 History doxepin 25 mg PO HS 04/23/19 04/23/19 History ergocalciferol (vitamin D2) 50,000 unit PO UD 04/23/19 04/23/19 History [Vitamin D2] escitalopram oxalate 30 mg PO QAM 04/23/19 04/23/19 History gabapentin 300 mg PO TID 04/23/19 04/23/19 History linagliptin [Tradjenta] 5 mg PO DAILY 04/23/19 04/23/19 History lisinopril 2.5 mg PO DAILY 04/23/19 04/23/19 History Past Med/Surg History Medical History Dyslipidemia (Chronic) RLS (restless legs syndrome) (Chronic) HTN (hypertension) (Chronic) Obesity (Chronic) CKD (chronic kidney disease), stage II (Chronic) Depression (Chronic) Bipolar disorder (Chronic) Diabetes mellitus, type II (Chronic) Stomach problems Emphysema lung Diabetes HTN (hypertension) Heart disease Family History Other Cancer Diabetes Heart disease Hypertension Social History Preferred Language: Cuban Communication Ability: Effective Manager Heavy Equipment Required: No Beliefs That Will Affect Care: None Current Living Situation: Alone Feels Safe at Home: Yes Smoking Status: Current every day smoker Hx Alcohol Use: No Hx Substance Use: No Physical Exam Physical Exam: General: now extubated, sleepy but alert, no acute distress, obese Head: normocephalic, atraumatic Eyes: PERRL, EOM's intact, conjunctiva non-injected, anicteric ENT: normal inspection external ears, nose, mucous membranes moist Neck: supple, trachea midline Lungs: clear, no respiratory distress, no wheezing/rhonchi/rales CV: RRR, no murmur, no pretibial edema Abd: normal BS, soft, non-tender Ext: no cyanosis, no calf tenderness Neuro: A&O x 3, no focal deficits noted, normal affect Skin: warm, dry Results & Data Vital Signs (Past 12 Hours) Vital Signs Temp Pulse Pulse Resp BP BP Pulse Ox 04/23/19 18:15 99 H 20 113/72 96 04/23/19 17:51 108 H 20 133/93 98 04/23/19 17:40 110 H 20 131/86 98 04/23/19 17:03 101 H 12 183/116 H 95 04/23/19 16:56 12 04/23/19 16:55 107 H 12 195/122 H 93 04/23/19 16:52 109 H 12 188/144 H 93 04/23/19 16:20 108 H 12 192/122 H 96 04/23/19 16:04 100 04/23/19 15:54 37.5 C 91 H 14 132/70 100 04/23/19 15:51 113 H 12 100 Laboratory Results Short CBC 04/23/19 Range/Units 15:06 WBC 9.43 (4.8-10.8) K/uL Hgb 13.9 (12.0-16.0) g/dL Hct 40.6 (37-47) % Plt Count 270 (130-400) K/uL BMP 04/23/19 15:06 Sodium 138 Potassium 4.7 Chloride 103 Carbon Dioxide 27 BUN 12 Creatinine 1.07 Glucose 192 H Calcium 8.6 Cardiac Enzymes 04/23/19 Range/Units 15:06 Troponin I < 0.015 (0-0.045) ng/ml Liver Function 04/23/19 Range/Units 15:06 Total Bilirubin 0.3 (0.2-1) mg/dl AST 24 (15-37) U/L ALT 28 (12-78) U/L Alkaline Phosphatase 137 H (45-117) U/L Albumin 3.2 L (3.4-5.0) gm/dl Urine 04/23/19 Range/Units 15:47 Urine Color Yellow Urine Appearance Cloudy A (Clear) Urine pH 7.0 (4.5-7.5) Ur Specific [place] 1.007 (1.000-1.030) Urine Protein Negative (Negative) Urine Glucose (UA) Negative (Negative) Diagnostic Findings CT HEAD: IMPRESSION: No acute intracranial findings CT C-SPINE: IMPRESSION: 1. Prevertebral soft tissue edema 2. Multilevel degenerative change 3. No acute fractures or traumatic subluxations identified. CTA CHEST: IMPRESSION: 1. No evidence of acute pulmonary embolism 2. Endotracheal tube positioned with its tip 1 cm above the guilherme. 3. Bilateral pulmonary airspace opacities. Atelectasis versus multifocal pneumonia versus aspiration. CT ABD/PELVIS: IMPRESSION: 1. Left basilar parenchymal infiltrate with mild right basilar dependent atelectasis. 2. Otherwise no acute process in the abdomen or pelvis. 3. Degenerative changes of the low thoracic and lumbar spine with no acute posttraumatic abnormality. FEMUR XRAY: IMPRESSION: 1. Severely limited exam due to body habitus. 2. Nondiagnostic evaluation of the left hip 3. The remainder of the femur is intact CXR: IMPRESSION: Endotracheal tube 2 cm above the guilherme. Potential early parenchymal infiltrate left midlung. Code Status & VTE Plan VTE Prophylaxis Plan VTE Prophylaxis will be ordered: Yes Supervising Physician Co-Signing Physician Notes Attending addendum: The patient was seen and examined in the emergency room Pt is 69 y/o F with PMH HTN, CKD II, RLS, depression, bipolar, obesity was brought into the emergency room by the EMS and complaints from neighbors that she was confused and wandering around.a On the way to the ER she was unresponsive and was placed on nonrebreather The emergency room she was intubated and later on extubated by the patient appointment coordinator When asking question she complained to have shortness of breath and throat tightness but denies any significant pain She was admitted to ICU for continuation of care On examination Minimal shortness of breath at rest,no other distress Hemodynamically stable Chest-decreased breath at the bases Heart-S1-S2, regular Abdomen-soft, minimal, mostly Extremities-trace edema bilateral Admission labs, EKG and imaging studies reviewed Was brought in unresponsive, intubated and then extubated Fairly unremarkable left, urine tox screen Admitted to ICU for continued Agree with assessment and plan as outlined above by CHRIS Murphy Dr (1) Respiratory failure with hypoxia Chronicity: acute Qualified Code(s): J96.01 - Acute respiratory failure with hypoxia
--- NOTE | 2019-04-23 18:55 | Emergency Department Note ---
Entered by Maryellen Camarillo acting as a scribe for Kennedy Esquivel DO History of Present Illness General Chief complaint: Altered Mental Status Source: EMS History of Present Illness Provider complaint: AMS Onset (ago): minute(s) (UPPER DOUBLER) 5 Location: head and lower extremity Pain Consistency: + constant Quality: + constant Associated symptoms: + headaches and + other (Positive: AMS, hypotension, fall, left hip pain, eyes slow to response, unresponsive ); no nausea/vomiting The patient is a 69 year old female with past medical history of emphysema, ulcers, who presents to the ED with complaints of constant altered mental status, hypotension, and fall. Per EMS: The gentleman that lives with the patient in the apartment called EMS. He told them about the patients fall last Friday. The patient is complaining of left upper leg pain and a headache. EMS was checking her pressure when the patient started mumbling. She had a low grade fever but no vomiting. The patients eyes were slow to response. She was given 4 Zofrans. The patients neighbors said this is not the patients baseline. She went unresponsive 5 minutes prior to arrival. Home Medications Home Medications Medication Instructions Recorded Confirmed Type atorvastatin 80 mg PO HS 04/23/19 04/23/19 History buspirone 5 mg PO BID 04/23/19 04/23/19 History clonazepam 1 mg PO BID 04/23/19 04/23/19 History doxepin 25 mg PO HS 04/23/19 04/23/19 History ergocalciferol (vitamin D2) 50,000 unit PO UD 04/23/19 04/23/19 History [Vitamin D2] escitalopram oxalate 30 mg PO QAM 04/23/19 04/23/19 History gabapentin 300 mg PO TID 04/23/19 04/23/19 History linagliptin [Tradjenta] 5 mg PO DAILY 04/23/19 04/23/19 History lisinopril 2.5 mg PO DAILY 04/23/19 04/23/19 History Allergies Allergy/AdvReac Type Severity Reaction Status Date / Time latex Allergy Unknown rash Verified 01/23/12 11:02 Penicillins Allergy Unknown Verified 04/23/19 21:03 Past Med/Surg History Medical History Dyslipidemia (Chronic) RLS (restless legs syndrome) (Chronic) HTN (hypertension) (Chronic) Obesity (Chronic) CKD (chronic kidney disease), stage II (Chronic) Depression (Chronic) Bipolar disorder (Chronic) Diabetes mellitus, type II (Chronic) Stomach problems Emphysema lung Diabetes HTN (hypertension) Heart disease Family History Other Cancer Diabetes Heart disease Hypertension Social History Preferred Language: Serbian Communication Ability: Effective Director Web Required: No Beliefs That Will Affect Care: None Current Living Situation: Alone Feels Safe at Home: Yes Smoking Status: Current every day smoker Hx Alcohol Use: No Hx Substance Use: No Review of Systems See HPI for pertinent positives & negatives. and A total of 10 systems reviewed and were otherwise negative Physical Exam Vital Signs Vital Signs - 24 hr 04/23/19 15:51 04/23/19 15:54 04/23/19 16:04 Temperature 37.5 C Temperature Source Oral Sepsis Recent Fever Within 48 Hours No Sepsis New/Unexplained Change in Mental Status No Sepsis Action Taken by Nursing No Action Required Pulse Rate 113 H 91 H Pulse Rate [Left Finger] Respiratory Rate 12 14 Blood Pressure 132/70 Blood Pressure [Right Arm] Blood Pressure Mean 90 Blood Pressure Mean [Right Arm] Pulse Oximetry 100 100 100 Oxygen Delivery Method Mechanical Vent Oxygen Flow Rate 15 Fraction of Inspired Oxygen 60 SaO2/FiO2 Ratio 04/23/19 16:20 04/23/19 16:52 04/23/19 16:55 Temperature Temperature Source Sepsis Recent Fever Within 48 Hours Sepsis New/Unexplained Change in Mental Status Sepsis Action Taken by Nursing Pulse Rate Pulse Rate [Left Finger] 108 H 109 H 107 H Respiratory Rate 12 12 12 Blood Pressure Blood Pressure [Right Arm] 192/122 H 188/144 H 195/122 H Blood Pressure Mean Blood Pressure Mean [Right Arm] 145 158 146 Pulse Oximetry 96 93 93 Oxygen Delivery Method Mechanical Vent Mechanical Vent Mechanical Vent Oxygen Flow Rate Fraction of Inspired Oxygen 60 60 60 SaO2/FiO2 Ratio 160 155 155 04/23/19 16:56 04/23/19 17:03 04/23/19 17:40 Temperature Temperature Source Sepsis Recent Fever Within 48 Hours Sepsis New/Unexplained Change in Mental Status Sepsis Action Taken by Nursing Pulse Rate Pulse Rate [Left Finger] 101 H 110 H Respiratory Rate 12 12 20 Blood Pressure Blood Pressure [Right Arm] 183/116 H 131/86 Blood Pressure Mean Blood Pressure Mean [Right Arm] 138 101 Pulse Oximetry 95 98 Oxygen Delivery Method Mechanical Vent Mechanical Vent Oxygen Flow Rate Fraction of Inspired Oxygen 60 SaO2/FiO2 Ratio 08/16/19 17:51 Temperature Temperature Source Sepsis Recent Fever Within 48 Hours Sepsis New/Unexplained Change in Mental Status Sepsis Action Taken by Nursing Pulse Rate Pulse Rate [Left Finger] 108 H Respiratory Rate 20 Blood Pressure Blood Pressure [Right Arm] 133/93 Blood Pressure Mean Blood Pressure Mean [Right Arm] 106 Pulse Oximetry 98 Oxygen Delivery Method Mechanical Vent Oxygen Flow Rate Fraction of Inspired Oxygen SaO2/FiO2 Ratio GENERAL: Minimal response to verbal and painful stimuli. EYES: Roving gaze was noted. Pupils are mid-sized and minimally reactive to light bilaterally. EARS, NOSE, MOUTH AND THROAT: The nose is without any evidence of any deformity. Mucous membranes are dry. Dentures removed. Tongue is midline NECK: The neck is nontender and supple. RESPIRATORY: Ineffective and shallow respirations were noted bilaterally. CARDIOVASCULAR: Regular rate and rhythm noted. There no murmurs rubs or gallops normal S1 normal S2 GASTROINTESTINAL: The abdomen is soft. Bowel sounds are present in all quadrants. Abdomen is nontender. MUSCULOSKELETAL/EXTREMITIES: There is no evidence of deformity in either lower extremities but significant pain was noted with testing of the left thigh. SKIN: There is no obvious evidence of any rash. There are no petechiae, pallor or cyanosis noted. Trace petal edema was noted bilaterally NEUROLOGIC:Patient has minimal response to painful stimuli. GCS 6 Procedures Intubation Time out performed: Yes sedative: Etomidate paralytic: Rocuronium Laryngoscope: other (Gulston scope ) ET Tube Size: 7.5 ET Tube Uncuffed: No Tube Secured Depth (cm): 22 Tube Secured Location: lips Tube Placement Confirmation: visualized tube passing through cords, equal breath sounds bilaterally, no breath sounds over epigastrium and confirmation by capnometry Patient Tolerated Procedure: well Intubation Complications: none Lumbar Puncture Time Out Performed: Yes Patient Position: right lateral decubitus Skin Prep: Povidone-Iodine 1% Local Anesthetic: lidocaine 1% Amount of anesthesia used (mL): 5 Spinal Needle Gauge: 20G Interspace Used: L3-L4 Fluid Initially Obtained: bloody Complications: none Course 1522: The patient was evaluated in room A1. A complete history and physical exam was performed. 1705: I spoke with the admitting team. 1710: I performed a lumbar puncture. Collected 4 tubes that initially started as bloody but then cleared up. 1732: I discussed the patient's case with Sindy Shah PA-C. 1741: I discussed the patient's case with Dr. Blackwell, Time Lock Expert. He will evaluate the patient for further management. Consultations Consultation #1: I discussed the patient's case with Sindy Shah PA-C. Time: 17:32 Consultation #2: I discussed the patient's case with Dr. Blackwell, Time Lock Expert. He will evaluate the patient for further management. Time: 17:41 Administered Medications Atorvastatin Calcium (Lipitor) 80 mg PO HS ADA Stop: 05/23/19 20:59 Last Admin: 04/23/19 20:42 Dose: 80 mg Documented by: [id number] Enoxaparin Sodium (Lovenox) 40 mg SQ Q24H ADA Stop: 05/23/19 18:59 Last Admin: 04/23/19 20:41 Dose: 40 mg Documented by: [id number] Gabapentin (Neurontin) 300 mg PO TID ADA Stop: 05/23/19 20:59 Last Admin: 04/23/19 20:42 Dose: 300 mg Documented by: [id number] Discontinued Medications Fentanyl Citrate (Fentanyl Citrate) Confirm Administered Dose 200 mcg .ROUTE .STK-MED ONE Stop: 04/23/19 17:28 Last Admin: 04/23/19 17:48 Dose: Not Given Documented by: [id number] Fentanyl Citrate (Fentanyl Citrate) 150 mcg IV NOW ONE Stop: 04/23/19 17:39 Last Admin: 04/23/19 17:47 Dose: 150 mcg Documented by: [id number] Piperacillin Sod/Tazobactam Sod (Zosyn) 4.5 gm in 120 mls @ 240 mls/hr IV NOW ONE Stop: 04/23/19 15:56 Last Infusion: 04/23/19 17:50 Dose: 0 mls/hr Documented by: [id number] Admin: 04/23/19 17:01 Dose: 240 mls/hr Documented by: [id number] Sodium Chloride (Nss 1000ml) 1,000 mls @ 999 mls/hr IV .Q1H1M ONE Stop: 04/23/19 16:27 Last Infusion: 04/23/19 17:50 Dose: 0 mls/hr Documented by: [id number] Admin: 04/23/19 16:06 Dose: 999 mls/hr Documented by: [id number] Propofol (Diprivan) 1,000 mg in 100 mls @ 3.504 mls/hr IV .Q24H ADA; Protocol Stop: 04/26/19 15:56 Last Admin: 04/23/19 18:53 Dose: Not Given Documented by: [id number] Ioversol (Optiray 320 125ml) 119 ml IV ONCE PRN PRN Reason: Interaction Checking Stop: 04/27/19 16:42 Last Admin: 04/23/19 16:44 Dose: 119 ml Documented by: [id number] Propofol (Diprivan) Confirm Administered Dose 1,000 mg IV .STK-MED ONE Stop: 04/23/19 15:42 Last Admin: 04/23/19 15:48 Dose: 1,000 mg Documented by: [id number] Cosigned by: [id number] Medical Decision Making Differential Diagnosis Differential diagnosis: Etiologies such as metabolic, infection, hypoglycemia, electrolyte abnormalities, cardiac sources, intracerebral event, toxicologic, neurologic, as well as others were entertained. Medical Records Attestation: I reviewed the patient's medical records. Home Medications Current Medication List: was personally reviewed by me Laboratory Data Attestation: I reviewed the patient's lab results. Result diagrams: 04/23/19 15:06 04/23/19 15:06 Lab Results 04/23/19 04/23/19 04/23/19 Range/Units 15:06 15:06 15:06 WBC 9.43 (4.8-10.8) K/uL RBC 4.53 (4.2-5.4) M/uL Hgb 13.9 (12.0-16.0) g/dL POC Hgb (12.0-16.0) g/dl Hct 40.6 (37-47) % POC Hct (37-47) % MCV 89.6 (80-100) fL MCH 30.7 (25-34) pg MCHC 34.2 (32-36) g/dL RDW Std Deviation 48.4 H (36.4-46.3) fL RDW Coeff of Diego 14.9 H (11.5-14.5) % Plt Count 270 (130-400) K/uL MPV 9.5 (7.4-10.4) fL Immature Gran % (Auto) 0.3 % Neut % (Auto) 58.9 % Lymph % (Auto) 29.6 % Trigg % (Auto) 8.1 % Eos % (Auto) 2.8 % Baso % (Auto) 0.3 % Immature Gran # (Auto) 0.03 H (0.00-0.02) K/uL Neut # (Auto) 5.56 (1.4-6.5) K/uL Lymph # (Auto) 2.79 (1.2-3.4) K/uL Trigg # (Auto) 0.76 H (0.11-0.59) K/uL Eos # (Auto) 0.26 (0-0.5) K/uL Baso # (Auto) 0.03 (0-0.2) K/uL ESR 69 H (0-21) mm/hr PT INR APTT PTT Ratio VBG pH (7.36-7.41) VBG pCO2 (38-50) mmHg VBG pO2 mmHg VBG HCO3 mmol/L VBG O2 Saturation % VBG Base Excess mEq/L Barometric Pressure mm/Hg POC Sodium (135-144) mEq/L Sodium (136-145) mmol/L POC Potassium (3.3-5.0) mEq/L Potassium (3.5-5.1) mmol/L POC Chloride (101-112) mEq/L Chloride (98-107) mmol/L Carbon Dioxide (21-32) mmol/L POC Total CO2 (24-31) mEq/l Anion Gap (3-11) POC Anion Gap (16-25) mmol/L POC BUN (7-18) mg/dl BUN (7-18) mg/dl Creatinine (0.6-1.2) mg/dl POC Creatinine (0.6-1.3) mg/dl Est Cr Clr Drug Dosing ml/min Est GFR ( Amer) Est GFR (Non-Af Amer) BUN/Creatinine Ratio (10-20) Glucose (70-99) mg/dl POC Glucose (other) (70-99) mg/dl Osmolality (280-300) mOsm/kg Lactate (0.4-2.0) mmol/L Calcium (8.5-10.1) mg/dl POC Ioniz Calcium Ale (1.12-1.32) mmol/l Magnesium (1.8-2.4) mg/dl Total Bilirubin (0.2-1) mg/dl AST (15-37) U/L ALT (12-78) U/L Alkaline Phosphatase (45-117) U/L Troponin I (0-0.045) ng/ml C-Reactive Protein (0-0.29) mg/dl NT-Pro-B Natriuret Pep (0-900) pg/ml Total Protein (6.4-8.2) gm/dl Albumin (3.4-5.0) gm/dl Globulin (2.5-4.0) gm/dl Albumin/Globulin Ratio (0.9-2) Procalcitonin < 0.05 (0-0.5) ng/ml Urine Color Urine Appearance (Clear) Urine pH (4.5-7.5) Ur Specific Taylor (1.000-1.030) Urine Protein (Negative) Urine Glucose (UA) (Negative) Urine Ketones (Negative) Urine Blood (Negative) Urine Nitrite (Negative) Urine Bilirubin (Negative) Urine Urobilinogen (Negative) Ur Leukocyte Esterase (Negative) Urine WBC (Auto) (0-5) /hpf Urine RBC (Auto) (0-4) /hpf U Hyaline Cast (Auto) (0-5) /lpf U Epithel Cells (Auto) (0-5) /lpf Urine Bacteria (Auto) (Negative) Urine Yeast (None Prsent) CSF Appearance CSF Color Xanthrochromic CSF WBC (0-5) /uL CSF RBC (0-) /uL CSF Cell Count Tube # CSF Chemistry Tube # CSF Glucose (40-70) mg/dl CSF Total Protein (15-45) mg/dl Urine Opiates Screen (Neg) Ur Methadone, Qual (Neg) Urine Barbiturates (Neg) Ur Phencyclidine (PCP) (Neg) U Amphetamin/Meth Scrn (Neg) MDMA (Ecstasy) Screen (Neg) U Benzodiazepines Scrn (Neg) Ur Cocaine Metabolite (Neg) U Marijuana (THC) Screen (Neg) Ethyl Alcohol mg/dL (0-3) mg/dl 04/23/19 04/23/19 04/23/19 Range/Units 15:06 15:06 15:06 WBC (4.8-10.8) K/uL RBC (4.2-5.4) M/uL Hgb (12.0-16.0) g/dL POC Hgb (12.0-16.0) g/dl Hct (37-47) % POC Hct (37-47) % MCV (80-100) fL MCH (25-34) pg MCHC (32-36) g/dL RDW Std Deviation (36.4-46.3) fL RDW Coeff of Diego (11.5-14.5) % Plt Count (130-400) K/uL MPV (7.4-10.4) fL Immature Gran % (Auto) % Neut % (Auto) % Lymph % (Auto) % Trigg % (Auto) % Eos % (Auto) % Baso % (Auto) % Immature Gran # (Auto) (0.00-0.02) K/uL Neut # (Auto) (1.4-6.5) K/uL Lymph # (Auto) (1.2-3.4) K/uL Trigg # (Auto) (0.11-0.59) K/uL Eos # (Auto) (0-0.5) K/uL Baso # (Auto) (0-0.2) K/uL ESR (0-21) mm/hr PT Cancelled INR Cancelled APTT Cancelled PTT Ratio Cancelled VBG pH (7.36-7.41) VBG pCO2 (38-50) mmHg VBG pO2 mmHg VBG HCO3 mmol/L VBG O2 Saturation % VBG Base Excess mEq/L Barometric Pressure mm/Hg POC Sodium (135-144) mEq/L Sodium 138 (136-145) mmol/L POC Potassium (3.3-5.0) mEq/L Potassium 4.7 (3.5-5.1) mmol/L POC Chloride (101-112) mEq/L Chloride 103 (98-107) mmol/L Carbon Dioxide 27 (21-32) mmol/L POC Total CO2 (24-31) mEq/l Anion Gap 8.0 (3-11) POC Anion Gap (16-25) mmol/L POC BUN (7-18) mg/dl BUN 12 (7-18) mg/dl Creatinine 1.07 (0.6-1.2) mg/dl POC Creatinine (0.6-1.3) mg/dl Est Cr Clr Drug Dosing 65.6 ml/min Est GFR ( Amer) 61.3 Est GFR (Non-Af Amer) 52.9 BUN/Creatinine Ratio 11.1 (10-20) Glucose 192 H (70-99) mg/dl POC Glucose (other) (70-99) mg/dl Osmolality 296 (280-300) mOsm/kg Lactate (0.4-2.0) mmol/L Calcium 8.6 (8.5-10.1) mg/dl POC Ioniz Calcium Ale (1.12-1.32) mmol/l Magnesium 2.1 (1.8-2.4) mg/dl Total Bilirubin 0.3 (0.2-1) mg/dl AST 24 (15-37) U/L ALT 28 (12-78) U/L Alkaline Phosphatase 137 H (45-117) U/L Troponin I < 0.015 (0-0.045) ng/ml C-Reactive Protein 0.72 H (0-0.29) mg/dl NT-Pro-B Natriuret Pep 80 (0-900) pg/ml Total Protein 7.6 (6.4-8.2) gm/dl Albumin 3.2 L (3.4-5.0) gm/dl Globulin 4.4 H (2.5-4.0) gm/dl Albumin/Globulin Ratio 0.7 L (0.9-2) Procalcitonin (0-0.5) ng/ml Urine Color Urine Appearance (Clear) Urine pH (4.5-7.5) Ur Specific Taylor (1.000-1.030) Urine Protein (Negative) Urine Glucose (UA) (Negative) Urine Ketones (Negative) Urine Blood (Negative) Urine Nitrite (Negative) Urine Bilirubin (Negative) Urine Urobilinogen (Negative) Ur Leukocyte Esterase (Negative) Urine WBC (Auto) (0-5) /hpf Urine RBC (Auto) (0-4) /hpf U Hyaline Cast (Auto) (0-5) /lpf U Epithel Cells (Auto) (0-5) /lpf Urine Bacteria (Auto) (Negative) Urine Yeast (None Prsent) CSF Appearance CSF Color Xanthrochromic CSF WBC (0-5) /uL CSF RBC (0-) /uL CSF Cell Count Tube # CSF Chemistry Tube # CSF Glucose (40-70) mg/dl CSF Total Protein (15-45) mg/dl Urine Opiates Screen (Neg) Ur Methadone, Qual (Neg) Urine Barbiturates (Neg) Ur Phencyclidine (PCP) (Neg) U Amphetamin/Meth Scrn (Neg) MDMA (Ecstasy) Screen (Neg) U Benzodiazepines Scrn (Neg) Ur Cocaine Metabolite (Neg) U Marijuana (THC) Screen (Neg) Ethyl Alcohol mg/dL (0-3) mg/dl 04/23/19 04/23/19 04/23/19 Range/Units 15:40 15:40 15:40 WBC (4.8-10.8) K/uL RBC (4.2-5.4) M/uL Hgb (12.0-16.0) g/dL POC Hgb (12.0-16.0) g/dl Hct (37-47) % POC Hct (37-47) % MCV (80-100) fL MCH (25-34) pg MCHC (32-36) g/dL RDW Std Deviation (36.4-46.3) fL RDW Coeff of Diego (11.5-14.5) % Plt Count (130-400) K/uL MPV (7.4-10.4) fL Immature Gran % (Auto) % Neut % (Auto) % Lymph % (Auto) % Trigg % (Auto) % Eos % (Auto) % Baso % (Auto) % Immature Gran # (Auto) (0.00-0.02) K/uL Neut # (Auto) (1.4-6.5) K/uL Lymph # (Auto) (1.2-3.4) K/uL Trigg # (Auto) (0.11-0.59) K/uL Eos # (Auto) (0-0.5) K/uL Baso # (Auto) (0-0.2) K/uL ESR (0-21) mm/hr PT INR APTT PTT Ratio VBG pH 7.37 (7.36-7.41) VBG pCO2 57 H (38-50) mmHg VBG pO2 41 mmHg VBG HCO3 33 mmol/L VBG O2 Saturation 73.5 % VBG Base Excess 5.4 mEq/L Barometric Pressure 731.6 mm/Hg POC Sodium (135-144) mEq/L Sodium (136-145) mmol/L POC Potassium (3.3-5.0) mEq/L Potassium (3.5-5.1) mmol/L POC Chloride (101-112) mEq/L Chloride (98-107) mmol/L Carbon Dioxide (21-32) mmol/L POC Total CO2 (24-31) mEq/l Anion Gap (3-11) POC Anion Gap (16-25) mmol/L POC BUN (7-18) mg/dl BUN (7-18) mg/dl Creatinine (0.6-1.2) mg/dl POC Creatinine (0.6-1.3) mg/dl Est Cr Clr Drug Dosing ml/min Est GFR ( Amer) Est GFR (Non-Af Amer) BUN/Creatinine Ratio (10-20) Glucose (70-99) mg/dl POC Glucose (other) (70-99) mg/dl Osmolality (280-300) mOsm/kg Lactate 1.9 (0.4-2.0) mmol/L Calcium (8.5-10.1) mg/dl POC Ioniz Calcium Ale (1.12-1.32) mmol/l Magnesium (1.8-2.4) mg/dl Total Bilirubin (0.2-1) mg/dl AST (15-37) U/L ALT (12-78) U/L Alkaline Phosphatase (45-117) U/L Troponin I (0-0.045) ng/ml C-Reactive Protein (0-0.29) mg/dl NT-Pro-B Natriuret Pep (0-900) pg/ml Total Protein (6.4-8.2) gm/dl Albumin (3.4-5.0) gm/dl Globulin (2.5-4.0) gm/dl Albumin/Globulin Ratio (0.9-2) Procalcitonin (0-0.5) ng/ml Urine Color Urine Appearance (Clear) Urine pH (4.5-7.5) Ur Specific Taylor (1.000-1.030) Urine Protein (Negative) Urine Glucose (UA) (Negative) Urine Ketones (Negative) Urine Blood (Negative) Urine Nitrite (Negative) Urine Bilirubin (Negative) Urine Urobilinogen (Negative) Ur Leukocyte Esterase (Negative) Urine WBC (Auto) (0-5) /hpf Urine RBC (Auto) (0-4) /hpf U Hyaline Cast (Auto) (0-5) /lpf U Epithel Cells (Auto) (0-5) /lpf Urine Bacteria (Auto) (Negative) Urine Yeast (None Prsent) CSF Appearance CSF Color Xanthrochromic CSF WBC (0-5) /uL CSF RBC (0-) /uL CSF Cell Count Tube # CSF Chemistry Tube # CSF Glucose (40-70) mg/dl CSF Total Protein (15-45) mg/dl Urine Opiates Screen (Neg) Ur Methadone, Qual (Neg) Urine Barbiturates (Neg) Ur Phencyclidine (PCP) (Neg) U Amphetamin/Meth Scrn (Neg) MDMA (Ecstasy) Screen (Neg) U Benzodiazepines Scrn (Neg) Ur Cocaine Metabolite (Neg) U Marijuana (THC) Screen (Neg) Ethyl Alcohol mg/dL < 3.0 (0-3) mg/dl 04/23/19 04/23/19 04/23/19 Range/Units 15:47 15:47 16:03 WBC (4.8-10.8) K/uL RBC (4.2-5.4) M/uL Hgb (12.0-16.0) g/dL POC Hgb (12.0-16.0) g/dl Hct (37-47) % POC Hct (37-47) % MCV (80-100) fL MCH (25-34) pg MCHC (32-36) g/dL RDW Std Deviation (36.4-46.3) fL RDW Coeff of Diego (11.5-14.5) % Plt Count (130-400) K/uL MPV (7.4-10.4) fL Immature Gran % (Auto) % Neut % (Auto) % Lymph % (Auto) % Trigg % (Auto) % Eos % (Auto) % Baso % (Auto) % Immature Gran # (Auto) (0.00-0.02) K/uL Neut # (Auto) (1.4-6.5) K/uL Lymph # (Auto) (1.2-3.4) K/uL Trigg # (Auto) (0.11-0.59) K/uL Eos # (Auto) (0-0.5) K/uL Baso # (Auto) (0-0.2) K/uL ESR (0-21) mm/hr PT 9.9 INR 1.0 APTT PTT Ratio VBG pH (7.36-7.41) VBG pCO2 (38-50) mmHg VBG pO2 mmHg VBG HCO3 mmol/L VBG O2 Saturation % VBG Base Excess mEq/L Barometric Pressure mm/Hg POC Sodium (135-144) mEq/L Sodium (136-145) mmol/L POC Potassium (3.3-5.0) mEq/L Potassium (3.5-5.1) mmol/L POC Chloride (101-112) mEq/L Chloride (98-107) mmol/L Carbon Dioxide (21-32) mmol/L POC Total CO2 (24-31) mEq/l Anion Gap (3-11) POC Anion Gap (16-25) mmol/L POC BUN (7-18) mg/dl BUN (7-18) mg/dl Creatinine (0.6-1.2) mg/dl POC Creatinine (0.6-1.3) mg/dl Est Cr Clr Drug Dosing ml/min Est GFR ( Amer) Est GFR (Non-Af Amer) BUN/Creatinine Ratio (10-20) Glucose (70-99) mg/dl POC Glucose (other) (70-99) mg/dl Osmolality (280-300) mOsm/kg Lactate (0.4-2.0) mmol/L Calcium (8.5-10.1) mg/dl POC Ioniz Calcium Ale (1.12-1.32) mmol/l Magnesium (1.8-2.4) mg/dl Total Bilirubin (0.2-1) mg/dl AST (15-37) U/L ALT (12-78) U/L Alkaline Phosphatase (45-117) U/L Troponin I (0-0.045) ng/ml C-Reactive Protein (0-0.29) mg/dl NT-Pro-B Natriuret Pep (0-900) pg/ml Total Protein (6.4-8.2) gm/dl Albumin (3.4-5.0) gm/dl Globulin (2.5-4.0) gm/dl Albumin/Globulin Ratio (0.9-2) Procalcitonin (0-0.5) ng/ml Urine Color Yellow Urine Appearance Cloudy A (Clear) Urine pH 7.0 (4.5-7.5) Ur Specific Taylor 1.007 (1.000-1.030) Urine Protein Negative (Negative) Urine Glucose (UA) Negative (Negative) Urine Ketones Negative (Negative) Urine Blood Trace H (Negative) Urine Nitrite Negative (Negative) Urine Bilirubin Negative (Negative) Urine Urobilinogen Negative (Negative) Ur Leukocyte Esterase Negative (Negative) Urine WBC (Auto) 1-5 (0-5) /hpf Urine RBC (Auto) 0-4 (0-4) /hpf U Hyaline Cast (Auto) 1-5 (0-5) /lpf U Epithel Cells (Auto) >30 H (0-5) /lpf Urine Bacteria (Auto) Negative (Negative) Urine Yeast Present A (None Prsent) CSF Appearance CSF Color Xanthrochromic CSF WBC (0-5) /uL CSF RBC (0-) /uL CSF Cell Count Tube # CSF Chemistry Tube # CSF Glucose (40-70) mg/dl CSF Total Protein (15-45) mg/dl Urine Opiates Screen Neg (Neg) Ur Methadone, Qual Neg (Neg) Urine Barbiturates Neg (Neg) Ur Phencyclidine (PCP) Neg (Neg) U Amphetamin/Meth Scrn Neg (Neg) MDMA (Ecstasy) Screen Neg (Neg) U Benzodiazepines Scrn Neg (Neg) Ur Cocaine Metabolite Neg (Neg) U Marijuana (THC) Screen Neg (Neg) Ethyl Alcohol mg/dL (0-3) mg/dl 04/23/19 04/23/19 04/23/19 Range/Units 16:19 17:30 17:30 WBC (4.8-10.8) K/uL RBC (4.2-5.4) M/uL Hgb (12.0-16.0) g/dL POC Hgb 14.3 (12.0-16.0) g/dl Hct (37-47) % POC Hct 42 (37-47) % MCV (80-100) fL MCH (25-34) pg MCHC (32-36) g/dL RDW Std Deviation (36.4-46.3) fL RDW Coeff of Diego (11.5-14.5) % Plt Count (130-400) K/uL MPV (7.4-10.4) fL Immature Gran % (Auto) % Neut % (Auto) % Lymph % (Auto) % Trigg % (Auto) % Eos % (Auto) % Baso % (Auto) % Immature Gran # (Auto) (0.00-0.02) K/uL Neut # (Auto) (1.4-6.5) K/uL Lymph # (Auto) (1.2-3.4) K/uL Trigg # (Auto) (0.11-0.59) K/uL Eos # (Auto) (0-0.5) K/uL Baso # (Auto) (0-0.2) K/uL ESR (0-21) mm/hr PT INR APTT PTT Ratio VBG pH (7.36-7.41) VBG pCO2 (38-50) mmHg VBG pO2 mmHg VBG HCO3 mmol/L VBG O2 Saturation % VBG Base Excess mEq/L Barometric Pressure mm/Hg POC Sodium 139 (135-144) mEq/L Sodium (136-145) mmol/L POC Potassium 4.4 (3.3-5.0) mEq/L Potassium (3.5-5.1) mmol/L POC Chloride 100 L (101-112) mEq/L Chloride (98-107) mmol/L Carbon Dioxide (21-32) mmol/L POC Total CO2 29 (24-31) mEq/l Anion Gap (3-11) POC Anion Gap 15.0 L (16-25) mmol/L POC BUN 11 (7-18) mg/dl BUN (7-18) mg/dl Creatinine (0.6-1.2) mg/dl POC Creatinine 1.1 (0.6-1.3) mg/dl Est Cr Clr Drug Dosing ml/min Est GFR ( Amer) Est GFR (Non-Af Amer) BUN/Creatinine Ratio (10-20) Glucose (70-99) mg/dl POC Glucose (other) 147 H (70-99) mg/dl Osmolality (280-300) mOsm/kg Lactate (0.4-2.0) mmol/L Calcium (8.5-10.1) mg/dl POC Ioniz Calcium Ale 1.10 L (1.12-1.32) mmol/l Magnesium (1.8-2.4) mg/dl Total Bilirubin (0.2-1) mg/dl AST (15-37) U/L ALT (12-78) U/L Alkaline Phosphatase (45-117) U/L Troponin I (0-0.045) ng/ml C-Reactive Protein (0-0.29) mg/dl NT-Pro-B Natriuret Pep (0-900) pg/ml Total Protein (6.4-8.2) gm/dl Albumin (3.4-5.0) gm/dl Globulin (2.5-4.0) gm/dl Albumin/Globulin Ratio (0.9-2) Procalcitonin (0-0.5) ng/ml Urine Color Urine Appearance (Clear) Urine pH (4.5-7.5) Ur Specific Taylor (1.000-1.030) Urine Protein (Negative) Urine Glucose (UA) (Negative) Urine Ketones (Negative) Urine Blood (Negative) Urine Nitrite (Negative) Urine Bilirubin (Negative) Urine Urobilinogen (Negative) Ur Leukocyte Esterase (Negative) Urine WBC (Auto) (0-5) /hpf Urine RBC (Auto) (0-4) /hpf U Hyaline Cast (Auto) (0-5) /lpf U Epithel Cells (Auto) (0-5) /lpf Urine Bacteria (Auto) (Negative) Urine Yeast (None Prsent) CSF Appearance Cloudy CSF Color [place] Xanthrochromic No xanthochromia CSF WBC 2 (0-5) /uL CSF RBC 700 (0-) /uL CSF Cell Count Tube # 3 CSF Chemistry Tube # 1 CSF Glucose 92 H (40-70) mg/dl CSF Total Protein 90.3 H (15-45) mg/dl Urine Opiates Screen (Neg) Ur Methadone, Qual (Neg) Urine Barbiturates (Neg) Ur Phencyclidine (PCP) (Neg) U Amphetamin/Meth Scrn (Neg) MDMA (Ecstasy) Screen (Neg) U Benzodiazepines Scrn (Neg) Ur Cocaine Metabolite (Neg) U Marijuana (THC) Screen (Neg) Ethyl Alcohol mg/dL (0-3) mg/dl 04/23/19 Range/Units 17:30 WBC (4.8-10.8) K/uL RBC (4.2-5.4) M/uL Hgb (12.0-16.0) g/dL POC Hgb (12.0-16.0) g/dl Hct (37-47) % POC Hct (37-47) % MCV (80-100) fL MCH (25-34) pg MCHC (32-36) g/dL RDW Std Deviation (36.4-46.3) fL RDW Coeff of Diego (11.5-14.5) % Plt Count (130-400) K/uL MPV (7.4-10.4) fL Immature Gran % (Auto) % Neut % (Auto) % Lymph % (Auto) % Trigg % (Auto) % Eos % (Auto) % Baso % (Auto) % Immature Gran # (Auto) (0.00-0.02) K/uL Neut # (Auto) (1.4-6.5) K/uL Lymph # (Auto) (1.2-3.4) K/uL Trigg # (Auto) (0.11-0.59) K/uL Eos # (Auto) (0-0.5) K/uL Baso # (Auto) (0-0.2) K/uL ESR (0-21) mm/hr PT INR APTT PTT Ratio VBG pH (7.36-7.41) VBG pCO2 (38-50) mmHg VBG pO2 mmHg VBG HCO3 mmol/L VBG O2 Saturation % VBG Base Excess mEq/L Barometric Pressure mm/Hg POC Sodium (135-144) mEq/L Sodium (136-145) mmol/L POC Potassium (3.3-5.0) mEq/L Potassium (3.5-5.1) mmol/L POC Chloride (101-112) mEq/L Chloride (98-107) mmol/L Carbon Dioxide (21-32) mmol/L POC Total CO2 (24-31) mEq/l Anion Gap (3-11) POC Anion Gap (16-25) mmol/L POC BUN (7-18) mg/dl BUN (7-18) mg/dl Creatinine (0.6-1.2) mg/dl POC Creatinine (0.6-1.3) mg/dl Est Cr Clr Drug Dosing ml/min Est GFR ( Amer) Est GFR (Non-Af Amer) BUN/Creatinine Ratio (10-20) Glucose (70-99) mg/dl POC Glucose (other) (70-99) mg/dl Osmolality (280-300) mOsm/kg Lactate (0.4-2.0) mmol/L Calcium (8.5-10.1) mg/dl POC Ioniz Calcium Ale (1.12-1.32) mmol/l Magnesium (1.8-2.4) mg/dl Total Bilirubin (0.2-1) mg/dl AST (15-37) U/L ALT (12-78) U/L Alkaline Phosphatase (45-117) U/L Troponin I (0-0.045) ng/ml C-Reactive Protein (0-0.29) mg/dl NT-Pro-B Natriuret Pep (0-900) pg/ml Total Protein (6.4-8.2) gm/dl Albumin (3.4-5.0) gm/dl Globulin (2.5-4.0) gm/dl Albumin/Globulin Ratio (0.9-2) Procalcitonin (0-0.5) ng/ml Urine Color Urine Appearance (Clear) Urine pH (4.5-7.5) Ur Specific Taylor (1.000-1.030) Urine Protein (Negative) Urine Glucose (UA) (Negative) Urine Ketones (Negative) Urine Blood (Negative) Urine Nitrite (Negative) Urine Bilirubin (Negative) Urine Urobilinogen (Negative) Ur Leukocyte Esterase (Negative) Urine WBC (Auto) (0-5) /hpf Urine RBC (Auto) (0-4) /hpf U Hyaline Cast (Auto) (0-5) /lpf U Epithel Cells (Auto) (0-5) /lpf Urine Bacteria (Auto) (Negative) Urine Yeast (None Prsent) CSF Appearance CSF Color Xanthrochromic CSF WBC (0-5) /uL CSF RBC (0-) /uL CSF Cell Count Tube # CSF Chemistry Tube # CSF Glucose (40-70) mg/dl CSF Total Protein Cancelled (15-45) mg/dl Urine Opiates Screen (Neg) Ur Methadone, Qual (Neg) Urine Barbiturates (Neg) Ur Phencyclidine (PCP) (Neg) U Amphetamin/Meth Scrn (Neg) MDMA (Ecstasy) Screen (Neg) U Benzodiazepines Scrn (Neg) Ur Cocaine Metabolite (Neg) U Marijuana (THC) Screen (Neg) Ethyl Alcohol mg/dL (0-3) mg/dl Imaging Data Radiologist's Impression: Radiology results as stated below per my review and th e radiologist's interpretation: CT abd pelvis IV con only CT DOSE: HISTORY: Trauma fall TECHNIQUE: Multiaxial CT images of the abdomen and pelvis were performed following the use of intravenous contrast. A dose lowering technique was utilized adhering to the principles of ALARA. COMPARISON STUDY: None. FINDINGS: Left basilar parenchymal infiltrate. Atelectasis right base. Mild fatty replacement of the liver. The adrenal glands are normal. Moderate cortical scarring of the kidneys bilaterally. No evidence for hydronephrosis. Nonobstructive bowel pattern. There is a Santos catheter within a collapsed bladder. No significant free fluid within the pelvic cul-de-sac. IMPRESSION: 1. Left basilar parenchymal infiltrate with mild right basilar dependent atelectasis. 2. Otherwise no acute process in the abdomen or pelvis. 3. Degenerative changes of the low thoracic and lumbar spine with no acute posttraumatic abnormality. The above report was generated using voice recognition software. It may contain grammatical, syntax or spelling errors. Electronically signed by: Jignesh Davis M.D. 04/23/2019 4:[address] ANGIOGRAM OF THE CHEST CLINICAL HISTORY: Trauma. Unresponsive patient. Possible pulmonary embolus. COMPARISON STUDY: No previous studies for comparison. TECHNIQUE: Following the IV administration of 119 mL of Optiray-320, CT angiogram of the thorax was performed from the thoracic inlet to the lung bases utilizing the pulmonary embolus protocol. Images are reviewed in the axial, sagittal, and coronal planes. IV contrast was administered without complication. MIP imaging was performed. A dose lowering technique was utilized adhering to the principles of ALARA. CT DOSE: 3558.72 mGy.cm FINDINGS: No pathologically enlarged axillary mediastinal or hilar lymph nodes were vi sualized. There was no evidence of thoracic aortic dilatation. There were no pulmonary artery filling defects to indicate acute pulmonary embolism. No pleural effusions are visualized. There is an endotracheal tube with its tip 1 cm above the guilherme. There are bilateral pulmonary airspace opacities, most pronounced within the left lower lobe and right upper lobe. Diagnostic considerations include atelectasis, pneumonia, or aspiration. IMPRESSION: 1. No evidence of acute pulmonary embolism 2. Endotracheal tube positioned with its tip 1 cm above the guilherme. 3. Bilateral pulmonary airspace opacities. Atelectasis versus multifocal pneumonia versus aspiration. Electronically signed by: Alexis Ta M.D. 04/23/2019 4:[address] OF THE CERVICAL SPINE CLINICAL HISTORY: Trauma. Patient is unresponsive. COMPARISON STUDY: No previous studies for comparison. CT DOSE: TECHNIQUE: CT scan of the cervical spine was performed from the skull base to the thoracic inlet. Images are reviewed in the axial, sagittal, and coronal planes. IV contrast was not administered for this examination. A dose lowering technique was utilized adhering to the principles of ALARA. FINDINGS: An endotracheal tube is visualized. There is fluid in nasopharynx. There is prevertebral soft tissue widening/edema. No acute fractures or subluxations are visualized. There are multilevel degenerative changes IMPRESSION: 1. Prevertebral soft tissue edema 2. Multilevel degenerative change 3. No acute fractures or traumatic subluxations identified. Electronically signed by: Alexis Ta M.D. 04/23/2019 4:50 PM XR chest 1V portable CLINICAL HISTORY: Sepsis dyspnea COMPARISON STUDY: 05/11/2009 FINDINGS: Endotracheal tube 2 cm above the guilherme. Mild nonspecific prominence of bronchovascular markings. Diaphragms are smooth. Slight prominence left mid lung markings IMPRESSION: Endotracheal tube 2 cm above the guilherme. Potential early parenchymal infiltrate left midlung. The above report was generated using voice recognition software. It may contain grammatical, syntax or spelling errors. Electronically signed by: Jignesh Davis M.D. 04/23/2019 4:05 PM XR femur LT 2V routine CLINICAL HISTORY: fall trauma. Pain. COMPARISON: None. DISCUSSION: Severely limited exam due to patient body habitus. Pre-existing total left knee arthroplasty. Nondiagnostic evaluation of the left hip. There is no evidence for soft tissue swelling. IMPRESSION: 1. Severely limited exam due to body habitus. 2. Nondiagnostic evaluation of the left hip 3. The remainder of the femur is intact The above report was generated using voice recognition software. It may contain grammatical, syntax or spelling errors. Electronically signed by: Jignesh Davis M.D. 04/23/2019 4:[address] head/brain wo con CLINICAL HISTORY: Unresponsive patient status post head trauma COMPARISON STUDY: 01/20/2010 TECHNIQUE: Axial CT of the brain is performed from the vertex to the skull base. IV contrast was not administered for this examination. A dose lowering technique was utilized adhering to the principles of ALARA. CT DOSE: FINDINGS: No intra or extra-axial mass lesions are visualized. There is no CT evidence of acute cortical infarction. There is no evidence of midline shift. There is no acute hemorrhage. No calvarial fractures are visualized. There are patchy white matter hypodensities likely on a small vessel basis. There is an old right basal ganglia lacunar infarct There is no evidence of pathologic ventricular dilatation. There is mild basal ganglial mineralization. There is no evidence of acute sinusitis. There is fluid within the nasopharynx. IMPRESSION: No acute intracranial findings Electronically signed by: Alexis Ta M.D. 04/23/2019 4:47 PM ECG Data Attestation: I personally reviewed and interpreted this ECG as follows: Indication: altered mental status Rate (beats per minute): 90 Rhythm: normal sinus Findings: + other (LVH Voltage criteria ); no ST depression, no ST elevation and no ectopy Comparison ECG Date: from (12/17/12) Change: no significant change Blood Pressure Blood Pressure Findings: Normal blood pressure Blood Pressure Disposition: did not require urgent referral Head Trauma GCS Score: 6 MDM Narrative The patient is a 69-year-old female who presented to the emergency department for an evaluation of altered mental status. I received the prehospital notification about this patient. Apparently the patient was found in an altered mental status in her apartment. Initially it was felt that the patient may be suffering from a neurologic disease or possibly trauma because there is a reported fall last week. When the patient was arriving at our facility she became unresponsive and her blood pressure dropped. She was brought into room A1 initially and was resuscitated appropriately. She was treated with IV fluids IV antibiotics. She was also intubated in the usual fashion for low GCS and altered mental status. The patient was further resuscitated while laboratory and radiographic studies were obtained. She was placed on sedation but continued to improve while she was in the emergency department. She was evaluated in the emergency department by the [facility] hospitalist as well as the diabetes solutions specialist. The patient continued to improve to the point where she was following commands and was able to be extubated by the diabetes solutions specialist. The patient was reevaluated multiple times. She continues to improve at this time. Impression & Plan Respiratory failure, Altered mental status, Pneumonia, Hypotension Critical Care Time Critical Care Time: Yes Total Critical Care Time: 65 I have personally spent greater than 65 minutes of critical care time in the direct management of this patient. This includes bedside care, interpretation of diagnostic studies, and testing, discussion with consultants, patient, and family members, and other required patient management activities. This 65 minutes is in excess of all separately billable procedures. Discharge Plan Visit Data *Final* Discharge Date/Time: 04/23/19 18:28 Chief Complaint: Altered Mental Status ED Provider: Kennedy Esquivel Discharge Problem: Respiratory failure, Altered mental status, Pneumonia, Hypotension Patient Disposition: Admitted As Inpatient Discharge Instructions Interventions: ED Discharge Assessment Last Done: 04/23/19 18:28 The scribe's documentation has been prepared under my direction and personally reviewed by me in its entirety. I confirm that the note above accurately reflects all work, treatment, procedures, and medical decision making performed by me.
[2019-04-23] MEDS ORDERED: ENOXAPARIN INJ 40 MG/0.4 ML SYR SQ SCH (19:00)
[2019-04-23] MEDS ORDERED: ETOMIDATE 2 MG/ML 20 ML VIAL IV ONE (20:15)
[2019-04-23] MEDS ORDERED: ROCURONIUM BROMIDE 10 MG/ML 10 ML VIAL IV ONE (20:15)
[2019-04-23] MEDS: GABAPENTIN 300 MG CAP PO SCH (20:42)
[2019-04-23] MEDS: ATORVASTATIN 40 MG TAB PO SCH (20:42)
--- NOTE | 2019-04-23 20:54 | Ultrasound Report ---
US carotid doppler BI HISTORY: Mental status change Altered mentation COMPARISON: None TECHNIQUE: Real-time, grayscale, and color Doppler sonography of the carotid arteries was performed. Imaging reviewed in the transverse and longitudinal planes. All measurements were calculated based on NASCET criteria. FINDINGS: Antegrade flow is seen in the bilateral vertebral arteries. The brachial pressures are hemodynamically similar. Mild plaque formation bilaterally The peak systolic velocity within the right ICA is 83. The right systolic ratio is 1.0. The peak systolic velocity within the left ICA is 67. The left systolic ratio is 0.7. IMPRESSION: No hemodynamically significant stenosis seen within the carotid arteries. Mild plaque formation bilat erally The above report was generated using voice recognition software. It may contain grammatical, syntax or spelling errors. Electronically signed by: Jignesh Davis M.D. 04/23/2019 8:53 PM
--- NOTE | 2019-04-23 21:33 | Magnetic Resonance Report ---
MR brain wo con HISTORY: Mental status change ALOC TECHNIQUE: Multiplanar multisequence MRI of the brain was performed without the use of contrast. COMPARISON STUDY: None. FINDINGS: There are no areas of restricted diffusion to suggest acute infarction. The midline structu res are intact. The paranasal sinuses are clear. The mastoid air cells are clear. The ventricles and sulci are within normal limits for age. There is no mass, hematoma, midline shift. The major vascular flow-voids at the skull base are well maintained. Findings of considerable chronic small vessel thomson ge of the periventricular deep white matter regions. Sella and parasellar regions are unremarkable. T he ventricular system is midline. IMPRESSION: 1. No acute intracranial abnormality. 2. Considerable chronic small vessel changes throughout both cerebral hemispheres. 3. Mild age-related atrophy. The above report was generated using voice recognition software. It may contain grammatical, syntax or spelling errors. Electronically signed by: Jignesh Davis M.D. 04/23/2019 9:31 PM
[2019-04-23] MEDS: FAMOTIDINE 20 MG in SYRINGE 3 ML IV SCH (21:55)
[2019-04-23] MEDS ORDERED: KETOROLAC TROMETHAMINE 15 MG/ML VIAL IV ONE (21:57)
[2019-04-24] MEDS: TRAMADOL HCL 50 MG TABLET PO PRN ×2 (00:25→05:42)
[2019-04-24 04:13] LABS: Basophils # (auto) 0.05 K/uL (0-0.2); Basophils % (auto) 0.5 %; Hematocrit (blood only) 37.5 % (37-47); Hemoglobin 12.9 g/dL (12.0-16.0); Immature Granulocytes # (auto) 0.03 K/uL (0.00-0.02); Immature Granulocytes % (auto) 0.3 %; Lymphocytes % (auto) 30.8 %; Mean Corpuscular Hgb Conc 34.4 g/dL (32-36); Mean Corpuscular Volume 90.1 fL (80-100); Mean Platelet Volume 9.1 fL (7.4-10.4); Monocytes # (auto) 0.83 K/uL (0.11-0.59); Monocytes % (auto) 8.2 %; Neutrophils # (auto) 5.77 K/uL (1.4-6.5); Neutrophils % (auto) 57.2 %; Platelet Count 239 K/uL (130-400); RDW Standard Deviation 49.4 fL (36.4-46.3); Red Blood Count 4.16 M/uL (4.2-5.4); White Blood Count 10.08 K/uL (4.8-10.8)
[2019-04-24 04:29] LABS: BUN Creatinine Ratio 11.1 (10-20); Calcium 8.1 mg/dl (8.5-10.1); Creatinine Clr Calc Pharmacy 57.1 ml/min; Est GFR (African American) 53.4; Est GFR (Non-African American) 46.1; Potassium 4.4 mmol/L (3.5-5.1)
[2019-04-24 04:30] LABS: Phosphorus 3.4 mg/dl (2.5-4.9)
[2019-04-24 06:00] LABS: Estimated Average Glucose 151 mg/dl; Hemoglobin A1C 6.9 % (4.5-5.6)
[2019-04-24] MEDS: FAMOTIDINE 20 MG in SYRINGE 3 ML IV SCH (06:39)
[2019-04-24] MEDS ORDERED: OXYCODONE HCL IR 5 MG TAB (IMMEDIATE RELEASE) PO PRN ×2 (07:21)
[2019-04-24] MEDS ORDERED: ACETAMINOPHEN 325 MG TAB PO PRN (07:21)
[2019-04-24] MEDS: ESCITALOPRAM OXALATE 20 MG TAB PO SCH (07:23)
[2019-04-24] MEDS: GABAPENTIN 300 MG CAP PO SCH ×3 (07:24→20:14)
--- NOTE | 2019-04-24 08:19 | Critical Care Progress Note ---
Date of Service April 24, 2019 Assessment & Plan (1) Acute encephalopathy: PLAN: Neuro: Acute encephalopathy: Resolved -MRI: Largely unremarkable -Carotid duplex: Largely unremarkable no significant stenosis -EEG pending: Nonemergent may be deferred to outpatient setting Resp: Acute hypoxic respiratory failure: Resolved -Patient successfully liberated from ventilator while in the emergency department yesterday CV: Hypertension -Continue home antihypertensives Fluids/Renal: Creatinine within normal limits -Doubt gabapentin overdose with normal renal function and rapid improvement in mental status ID: Monitor fever curve GI/Nutrition: Tolerated clear liquids yesterday continuing with ADA diet today Heme: DVT prophylaxis: Lovenox Endocrine: Elevated A1c Vascular access: Peripheral IVs Code Status: Full code Discussed with rocio Zaldivar for downgrade out of ICU (2) Respiratory failure with hypoxia: Subjective No overnight events. Review of Systems Review of Systems: No chest pain no shortness of breath no diarrhea Physical Exam Physical Exam: General: Alert. nontoxic. Skin: Warm, dry, Head: Atraumatic Ears, nose, mouth and throat: airway patent Cardiovascular: Normal peripheral perfusion Respiratory: no respiratory distress Gastrointestinal: Non distended Musculoskeletal: No deformity Results & Data Vital Signs (Past 12 Hours) Vital Signs Temp Pulse Resp BP Pulse Ox 04/24/19 07:31 36.8 C 89 17 164/98 H 96 04/24/19 07:30 92 H 19 90 04/24/19 07:00 80 14 124/82 99 04/24/19 05:00 75 23 123/85 98 04/24/19 04:30 77 15 138/94 97 04/24/19 04:00 36.8 C 75 13 137/95 96 04/24/19 03:30 76 17 108/75 98 04/24/19 03:00 76 13 114/73 97 04/24/19 02:30 75 15 88/65 L 97 04/24/19 02:09 79 13 100/69 96 04/24/19 02:01 36.9 C 79 19 97 04/24/19 01:02 77 14 95/67 L 98 04/24/19 00:01 37 C 81 15 119/88 97 04/24/19 00:00 83 04/23/19 23:31 81 20 133/86 97 04/23/19 23:00 86 11 L 132/93 97 08/16/19 22:30 84 15 117/89 96 04/23/19 22:18 36.8 C 79 14 133/87 96 04/23/19 21:39 91 H 19 107/75 96 Laboratory Results 04/24/19 04/24/19 04/24/19 Range/Units 07:11 03:49 03:49 WBC (4.8-10.8) K/uL RBC (4.2-5.4) M/uL Hgb (12.0-16.0) g/dL POC Hgb (12.0-16.0) g/dl Hct (37-47) % POC Hct (37-47) % MCV (80-100) fL MCH (25-34) pg MCHC (32-36) g/dL RDW Std Deviation (36.4-46.3) fL RDW Coeff of [place] (11.5-14.5) % Plt Count (130-400) K/uL MPV (7.4-10.4) fL Immature Gran % (Auto) % Neut % (Auto) % Lymph % (Auto) % [place] % (Auto) % Eos % (Auto) % Baso % (Auto) % Immature Gran # (Auto) (0.00-0.02) K/uL Neut # (Auto) (1.4-6.5) K/uL Lymph # (Auto) (1.2-3.4) K/uL [place] # (Auto) (0.11-0.59) K/uL Eos # (Auto) (0-0.5) K/uL Baso # (Auto) (0-0.2) K/uL ESR (0-21) mm/hr PT INR APTT PTT Ratio VBG pH (7.36-7.41) VBG pCO2 (38-50) mmHg VBG pO2 mmHg VBG HCO3 mmol/L VBG O2 Saturation % VBG Base Excess mEq/L Barometric Pressure mm/Hg POC Sodium (135-144) mEq/L Sodium 139 (136-145) mmol/L POC Potassium (3.3-5.0) mEq/L Potassium 4.4 (3.5-5.1) mmol/L POC Chloride (101-112) mEq/L Chloride 102 (98-107) mmol/L Carbon Dioxide 31 (21-32) mmol/L POC Total CO2 (24-31) mEq/l Anion Gap 6.0 (3-11) POC Anion Gap (16-25) mmol/L POC BUN (7-18) mg/dl BUN 13 (7-18) mg/dl Creatinine 1.20 (0.6-1.2) mg/dl POC Creatinine (0.6-1.3) mg/dl Est Cr Clr Drug Dosing 57.1 ml/min Est GFR ( Amer) 53.4 Est GFR (Non-Af Amer) 46.1 BUN/Creatinine Ratio 11.1 (10-20) Glucose 99 (70-99) mg/dl POC Glucose 107 H (70-99) POC Glucose (other) (70-99) mg/dl Estimat Average Glucose 151 mg/dl Hemoglobin A1c 6.9 H (4.5-5.6) % Osmolality (280-300) mOsm/kg Lactate (0.4-2.0) mmol/L Calcium 8.1 L (8.5-10.1) mg/dl POC Ioniz Calcium Ale (1.12-1.32) mmol/l Phosphorus 3.4 (2.5-4.9) mg/dl Magnesium 2.0 (1.8-2.4) mg/dl Total Bilirubin (0.2-1) mg/dl AST (15-37) U/L ALT (12-78) U/L Alkaline Phosphatase (45-117) U/L Troponin I (0-0.045) ng/ml C-Reactive Protein (0-0.29) mg/dl NT-Pro-B Natriuret Pep (0-900) pg/ml Total Protein (6.4-8.2) gm/dl Albumin (3.4-5.0) gm/dl Globulin (2.5-4.0) gm/dl Albumin/Globulin Ratio (0.9-2) Procalcitonin (0-0.5) ng/ml Urine Color Urine Appearance (Clear) Urine pH (4.5-7.5) Ur Specific [place] (1.000-1.030) Urine Protein (Negative) Urine Glucose (UA) (Negative) Urine Ketones (Negative) Urine Blood (Negative) Urine Nitrite (Negative) Urine Bilirubin (Negative) Urine Urobilinogen (Negative) Ur Leukocyte Esterase (Negative) Urine WBC (Auto) (0-5) /hpf Urine RBC (Auto) (0-4) /hpf U Hyaline Cast (Auto) (0-5) /lpf U Epithel Cells (Auto) (0-5) /lpf Urine Bacteria (Auto) (Negative) Urine Yeast (None Prsent) CSF Appearance CSF Color Xanthrochromic CSF WBC (0-5) /uL CSF RBC (0-) /uL CSF Cell Count Tube # CSF Chemistry Tube # CSF Glucose (40-70) mg/dl CSF Total Protein (15-45) mg/dl Nasal Screen MRSA (PCR) (Negative) Urine Opiates Screen (Neg) Ur Methadone, Qual (Neg) Urine Barbiturates (Neg) Ur Phencyclidine (PCP) (Neg) U Amphetamin/Meth Scrn (Neg) MDMA (Ecstasy) Screen (Neg) U Benzodiazepines Scrn (Neg) Ur Cocaine Metabolite (Neg) U Marijuana (THC) Screen (Neg) Ethyl Alcohol mg/dL (0-3) mg/dl 04/24/19 04/23/19 04/23/19 Range/Units 03:49 19:30 17:30 WBC 10.08 (4.8-10.8) K/uL RBC 4.16 L (4.2-5.4) M/uL Hgb 12.9 (12.0-16.0) g/dL POC Hgb (12.0-16.0) g/dl Hct 37.5 (37-47) % POC Hct (37-47) % MCV 90.1 (80-100) fL MCH 31.0 (25-34) pg MCHC 34.4 (32-36) g/dL RDW Std Deviation 49.4 H (36.4-46.3) fL RDW Coeff of [place] 15.0 H (11.5-14.5) % Plt Count 239 (130-400) K/uL MPV 9.1 (7.4-10.4) fL Immature Gran % (Auto) 0.3 % Neut % (Auto) 57.2 % Lymph % (Auto) 30.8 % [place] % (Auto) 8.2 % Eos % (Auto) 3.0 % Baso % (Auto) 0.5 % Immature Gran # (Auto) 0.03 H (0.00-0.02) K/uL Neut # (Auto) 5.77 (1.4-6.5) K/uL Lymph # (Auto) 3.10 (1.2-3.4) K/uL [place] # (Auto) 0.83 H (0.11-0.59) K/uL Eos # (Auto) 0.30 (0-0.5) K/uL Baso # (Auto) 0.05 (0-0.2) K/uL ESR (0-21) mm/hr PT INR APTT PTT Ratio VBG pH (7.36-7.41) VBG pCO2 (38-50) mmHg VBG pO2 mmHg VBG HCO3 mmol/L VBG O2 Saturation % VBG Base Excess mEq/L Barometric Pressure mm/Hg POC Sodium (135-144) mEq/L Sodium (136-145) mmol/L POC Potassium (3.3-5.0) mEq/L Potassium (3.5-5.1) mmol/L POC Chloride (101-112) mEq/L Chloride (98-107) mmol/L Carbon Dioxide (21-32) mmol/L POC Total CO2 (24-31) mEq/l Anion Gap (3-11) POC Anion Gap (16-25) mmol/L POC BUN (7-18) mg/dl BUN (7-18) mg/dl Creatinine (0.6-1.2) mg/dl POC Creatinine (0.6-1.3) mg/dl Est Cr Clr Drug Dosing ml/min Est GFR ( Amer) Est GFR (Non-Af Amer) BUN/Creatinine Ratio (10-20) Glucose (70-99) mg/dl POC Glucose (70-99) POC Glucose (other) (70-99) mg/dl Estimat Average Glucose mg/dl Hemoglobin A1c (4.5-5.6) % Osmolality (280-300) mOsm/kg Lactate (0.4-2.0) mmol/L Calcium (8.5-10.1) mg/dl POC Ioniz Calcium Ale (1.12-1.32) mmol/l Phosphorus (2.5-4.9) mg/dl Magnesium (1.8-2.4) mg/dl Total Bilirubin (0.2-1) mg/dl AST (15-37) U/L ALT (12-78) U/L Alkaline Phosphatase (45-117) U/L Troponin I (0-0.045) ng/ml C-Reactive Protein (0-0.29) mg/dl NT-Pro-B Natriuret Pep (0-900) pg/ml Total Protein (6.4-8.2) gm/dl Albumin (3.4-5.0) gm/dl Globulin (2.5-4.0) gm/dl Albumin/Globulin Ratio (0.9-2) Procalcitonin (0-0.5) ng/ml Urine Color Urine Appearance (Clear) Urine pH (4.5-7.5) Ur Specific [place] (1.000-1.030) Urine Protein (Negative) Urine Glucose (UA) (Negative) Urine Ketones (Negative) Urine Blood (Negative) Urine Nitrite (Negative) Urine Bilirubin (Negative) Urine Urobilinogen (Negative) Ur Leukocyte Esterase (Negative) Urine WBC (Auto) (0-5) /hpf Urine RBC (Auto) (0-4) /hpf U Hyaline Cast (Auto) (0-5) /lpf U Epithel Cells (Auto) (0-5) /lpf Urine Bacteria (Auto) (Negative) Urine Yeast (None Prsent) CSF Appearance CSF Color Xanthrochromic CSF WBC (0-5) /uL CSF RBC (0-) /uL CSF Cell Count Tube # CSF Chemistry Tube # CSF Glucose (40-70) mg/dl CSF Total Protein Cancelled (15-45) mg/dl Nasal Screen MRSA (PCR) Negative (Negative) Urine Opiates Screen (Neg) Ur Methadone, Qual (Neg) Urine Barbiturates (Neg) Ur Phencyclidine (PCP) (Neg) U Amphetamin/Meth Scrn (Neg) MDMA (Ecstasy) Screen (Neg) U Benzodiazepines Scrn (Neg) Ur Cocaine Metabolite (Neg) U Marijuana (THC) Screen (Neg) Ethyl Alcohol mg/dL (0-3) mg/dl 04/23/19 04/23/19 04/23/19 Range/Units 17:30 17:30 16:19 WBC (4.8-10.8) K/uL RBC (4.2-5.4) M/uL Hgb (12.0-16.0) g/dL POC Hgb 14.3 (12.0-16.0) g/dl Hct (37-47) % POC Hct 42 (37-47) % MCV (80-100) fL MCH (25-34) pg MCHC (32-36) g/dL RDW Std Deviation (36.4-46.3) fL RDW Coeff of [place] (11.5-14.5) % Plt Count (130-400) K/uL MPV (7.4-10.4) fL Immature Gran % (Auto) % Neut % (Auto) % Lymph % (Auto) % [place] % (Auto) % Eos % (Auto) % Baso % (Auto) % Immature Gran # (Auto) (0.00-0.02) K/uL Neut # (Auto) (1.4-6.5) K/uL Lymph # (Auto) (1.2-3.4) K/uL [place] # (Auto) (0.11-0.59) K/uL Eos # (Auto) (0-0.5) K/uL Baso # (Auto) (0-0.2) K/uL ESR (0-21) mm/hr PT INR APTT PTT Ratio VBG pH (7.36-7.41) VBG pCO2 (38-50) mmHg VBG pO2 mmHg VBG HCO3 mmol/L VBG O2 Saturation % VBG Base Excess mEq/L Barometric Pressure mm/Hg POC Sodium 139 (135-144) mEq/L Sodium (136-145) mmol/L POC Potassium 4.4 (3.3-5.0) mEq/L Potassium (3.5-5.1) mmol/L POC Chloride 100 L (101-112) mEq/L Chloride (98-107) mmol/L Carbon Dioxide (21-32) mmol/L POC Total CO2 29 (24-31) mEq/l Anion Gap (3-11) POC Anion Gap 15.0 L (16-25) mmol/L POC BUN 11 (7-18) mg/dl BUN (7-18) mg/dl Creatinine (0.6-1.2) mg/dl POC Creatinine 1.1 (0.6-1.3) mg/dl Est Cr Clr Drug Dosing ml/min Est GFR ( Amer) Est GFR (Non-Af Amer) BUN/Creatinine Ratio (10-20) Glucose (70-99) mg/dl POC Glucose (70-99) POC Glucose (other) 147 H (70-99) mg/dl Estimat Average Glucose mg/dl Hemoglobin A1c (4.5-5.6) % Osmolality (280-300) mOsm/kg Lactate (0.4-2.0) mmol/L Calcium (8.5-10.1) mg/dl POC Ioniz Calcium Ale 1.10 L (1.12-1.32) mmol/l Phosphorus (2.5-4.9) mg/dl Magnesium (1.8-2.4) mg/dl Total Bilirubin (0.2-1) mg/dl AST (15-37) U/L ALT (12-78) U/L Alkaline Phosphatase (45-117) U/L Troponin I (0-0.045) ng/ml C-Reactive Protein (0-0.29) mg/dl NT-Pro-B Natriuret Pep (0-900) pg/ml Total Protein (6.4-8.2) gm/dl Albumin (3.4-5.0) gm/dl Globulin (2.5-4.0) gm/dl Albumin/Globulin Ratio (0.9-2) Procalcitonin (0-0.5) ng/ml Urine Color Urine Appearance (Clear) Urine pH (4.5-7.5) Ur Specific [place] (1.000-1.030) Urine Protein (Negative) Urine Glucose (UA) (Negative) Urine Ketones (Negative) Urine Blood (Negative) Urine Nitrite (Negative) Urine Bilirubin (Negative) Urine Urobilinogen (Negative) Ur Leukocyte Esterase (Negative) Urine WBC (Auto) (0-5) /hpf Urine RBC (Auto) (0-4) /hpf U Hyaline Cast (Auto) (0-5) /lpf U Epithel Cells (Auto) (0-5) /lpf Urine Bacteria (Auto) (Negative) Urine Yeast (None Prsent) CSF Appearance Cloudy CSF Color [place] Xanthrochromic No xanthochromia CSF WBC 2 (0-5) /uL CSF RBC 700 (0-) /uL CSF Cell Count Tube # 3 CSF Chemistry Tube # 1 CSF Glucose 92 H (40-70) mg/dl CSF Total Protein 90.3 H (15-45) mg/dl Nasal Screen MRSA (PCR) (Negative) Urine Opiates Screen (Neg) Ur Methadone, Qual (Neg) Urine Barbiturates (Neg) Ur Phencyclidine (PCP) (Neg) U Amphetamin/Meth Scrn (Neg) MDMA (Ecstasy) Screen (Neg) U Benzodiazepines Scrn (Neg) Ur Cocaine Metabolite (Neg) U Marijuana (THC) Screen (Neg) Ethyl Alcohol mg/dL (0-3) mg/dl 04/23/19 04/23/19 04/23/19 Range/Units 16:03 15:47 15:47 WBC (4.8-10.8) K/uL RBC (4.2-5.4) M/uL Hgb (12.0-16.0) g/dL POC Hgb (12.0-16.0) g/dl Hct (37-47) % POC Hct (37-47) % MCV (80-100) fL MCH (25-34) pg MCHC (32-36) g/dL RDW Std Deviation (36.4-46.3) fL RDW Coeff of [place] (11.5-14.5) % Plt Count (130-400) K/uL MPV (7.4-10.4) fL Immature Gran % (Auto) % Neut % (Auto) % Lymph % (Auto) % [place] % (Auto) % Eos % (Auto) % Baso % (Auto) % Immature Gran # (Auto) (0.00-0.02) K/uL Neut # (Auto) (1.4-6.5) K/uL Lymph # (Auto) (1.2-3.4) K/uL [place] # (Auto) (0.11-0.59) K/uL Eos # (Auto) (0-0.5) K/uL Baso # (Auto) (0-0.2) K/uL ESR (0-21) mm/hr PT 9.9 INR 1.0 APTT PTT Ratio VBG pH (7.36-7.41) VBG pCO2 (38-50) mmHg VBG pO2 mmHg VBG HCO3 mmol/L VBG O2 Saturation % VBG Base Excess mEq/L Barometric Pressure mm/Hg POC Sodium (135-144) mEq/L Sodium (136-145) mmol/L POC Potassium (3.3-5.0) mEq/L Potassium (3.5-5.1) mmol/L POC Chloride (101-112) mEq/L Chloride (98-107) mmol/L Carbon Dioxide (21-32) mmol/L POC Total CO2 (24-31) mEq/l Anion Gap (3-11) POC Anion Gap (16-25) mmol/L POC BUN (7-18) mg/dl BUN (7-18) mg/dl Creatinine (0.6-1.2) mg/dl POC Creatinine (0.6-1.3) mg/dl Est Cr Clr Drug Dosing ml/min Est GFR ( Amer) Est GFR (Non-Af Amer) BUN/Creatinine Ratio (10-20) Glucose (70-99) mg/dl POC Glucose (70-99) POC Glucose (other) (70-99) mg/dl Estimat Average Glucose mg/dl Hemoglobin A1c (4.5-5.6) % Osmolality (280-300) mOsm/kg Lactate (0.4-2.0) mmol/L Calcium (8.5-10.1) mg/dl POC Ioniz Calcium Ale (1.12-1.32) mmol/l Phosphorus (2.5-4.9) mg/dl Magnesium (1.8-2.4) mg/dl Total Bilirubin (0.2-1) mg/dl AST (15-37) U/L ALT (12-78) U/L Alkaline Phosphatase (45-117) U/L Troponin I (0-0.045) ng/ml C-Reactive Protein (0-0.29) mg/dl NT-Pro-B Natriuret Pep (0-900) pg/ml Total Protein (6.4-8.2) gm/dl Albumin (3.4-5.0) gm/dl Globulin (2.5-4.0) gm/dl Albumin/Globulin Ratio (0.9-2) Procalcitonin (0-0.5) ng/ml Urine Color Yellow Urine Appearance Cloudy A (Clear) Urine pH 7.0 (4.5-7.5) Ur Specific [place] 1.007 (1.000-1.030) Urine Protein Negative (Negative) Urine Glucose (UA) Negative (Negative) Urine Ketones Negative (Negative) Urine Blood Trace H (Negative) Urine Nitrite Negative (Negative) Urine Bilirubin Negative (Negative) Urine Urobilinogen Negative (Negative) Ur Leukocyte Esterase Negative (Negative) Urine WBC (Auto) 1-5 (0-5) /hpf Urine RBC (Auto) 0-4 (0-4) /hpf U Hyaline Cast (Auto) 1-5 (0-5) /lpf U Epithel Cells (Auto) >30 H (0-5) /lpf Urine Bacteria (Auto) Negative (Negative) Urine Yeast Present A (None Prsent) CSF Appearance CSF Color Xanthrochromic CSF WBC (0-5) /uL CSF RBC (0-) /uL CSF Cell Count Tube # CSF Chemistry Tube # CSF Glucose (40-70) mg/dl CSF Total Protein (15-45) mg/dl Nasal Screen MRSA (PCR) (Negative) Urine Opiates Screen Neg (Neg) Ur Methadone, Qual Neg (Neg) Urine Barbiturates Neg (Neg) Ur Phencyclidine (PCP) Neg (Neg) U Amphetamin/Meth Scrn Neg (Neg) MDMA (Ecstasy) Screen Neg (Neg) U Benzodiazepines Scrn Neg (Neg) Ur Cocaine Metabolite Neg (Neg) U Marijuana (THC) Screen Neg (Neg) Ethyl Alcohol mg/dL (0-3) mg/dl 04/23/19 04/23/19 04/23/19 Range/Units 15:40 15:40 15:40 WBC (4.8-10.8) K/uL RBC (4.2-5.4) M/uL Hgb (12.0-16.0) g/dL POC Hgb (12.0-16.0) g/dl Hct (37-47) % POC Hct (37-47) % MCV (80-100) fL MCH (25-34) pg MCHC (32-36) g/dL RDW Std Deviation (36.4-46.3) fL RDW Coeff of [place] (11.5-14.5) % Plt Count (130-400) K/uL MPV (7.4-10.4) fL Immature Gran % (Auto) % Neut % (Auto) % Lymph % (Auto) % [place] % (Auto) % Eos % (Auto) % Baso % (Auto) % Immature Gran # (Auto) (0.00-0.02) K/uL Neut # (Auto) (1.4-6.5) K/uL Lymph # (Auto) (1.2-3.4) K/uL [place] # (Auto) (0.11-0.59) K/uL Eos # (Auto) (0-0.5) K/uL Baso # (Auto) (0-0.2) K/uL ESR (0-21) mm/hr PT INR APTT PTT Ratio VBG pH 7.37 (7.36-7.41) VBG pCO2 57 H (38-50) mmHg VBG pO2 41 mmHg VBG HCO3 33 mmol/L VBG O2 Saturation 73.5 % VBG Base Excess 5.4 mEq/L Barometric Pressure 731.6 mm/Hg POC Sodium (135-144) mEq/L Sodium (136-145) mmol/L POC Potassium (3.3-5.0) mEq/L Potassium (3.5-5.1) mmol/L POC Chloride (101-112) mEq/L Chloride (98-107) mmol/L Carbon Dioxide (21-32) mmol/L POC Total CO2 (24-31) mEq/l Anion Gap (3-11) POC Anion Gap (16-25) mmol/L POC BUN (7-18) mg/dl BUN (7-18) mg/dl Creatinine (0.6-1.2) mg/dl POC Creatinine (0.6-1.3) mg/dl Est Cr Clr Drug Dosing ml/min Est GFR ( Amer) Est GFR (Non-Af Amer) BUN/Creatinine Ratio (10-20) Glucose (70-99) mg/dl POC Glucose (70-99) POC Glucose (other) (70-99) mg/dl Estimat Average Glucose mg/dl Hemoglobin A1c (4.5-5.6) % Osmolality (280-300) mOsm/kg Lactate 1.9 (0.4-2.0) mmol/L Calcium (8.5-10.1) mg/dl POC Ioniz Calcium Ale (1.12-1.32) mmol/l Phosphorus (2.5-4.9) mg/dl Magnesium (1.8-2.4) mg/dl Total Bilirubin (0.2-1) mg/dl AST (15-37) U/L ALT (12-78) U/L Alkaline Phosphatase (45-117) U/L Troponin I (0-0.045) ng/ml C-Reactive Protein (0-0.29) mg/dl NT-Pro-B Natriuret Pep (0-900) pg/ml Total Protein (6.4-8.2) gm/dl Albumin (3.4-5.0) gm/dl Globulin (2.5-4.0) gm/dl Albumin/Globulin Ratio (0.9-2) Procalcitonin (0-0.5) ng/ml Urine Color Urine Appearance (Clear) Urine pH (4.5-7.5) Ur Specific [place] (1.000-1.030) Urine Protein (Negative) Urine Glucose (UA) (Negative) Urine Ketones (Negative) Urine Blood (Negative) Urine Nitrite (Negative) Urine Bilirubin (Negative) Urine Urobilinogen (Negative) Ur Leukocyte Esterase (Negative) Urine WBC (Auto) (0-5) /hpf Urine RBC (Auto) (0-4) /hpf U Hyaline Cast (Auto) (0-5) /lpf U Epithel Cells (Auto) (0-5) /lpf Urine Bacteria (Auto) (Negative) Urine Yeast (None Prsent) CSF Appearance CSF Color Xanthrochromic CSF WBC (0-5) /uL CSF RBC (0-) /uL CSF Cell Count Tube # CSF Chemistry Tube # CSF Glucose (40-70) mg/dl CSF Total Protein (15-45) mg/dl Nasal Screen MRSA (PCR) (Negative) Urine Opiates Screen (Neg) Ur Methadone, Qual (Neg) Urine Barbiturates (Neg) Ur Phencyclidine (PCP) (Neg) U Amphetamin/Meth Scrn (Neg) MDMA (Ecstasy) Screen (Neg) U Benzodiazepines Scrn (Neg) Ur Cocaine Metabolite (Neg) U Marijuana (THC) Screen (Neg) Ethyl Alcohol mg/dL < 3.0 (0-3) mg/dl 04/23/19 04/23/19 04/23/19 Range/Units 15:06 15:06 15:06 WBC (4.8-10.8) K/uL RBC (4.2-5.4) M/uL Hgb (12.0-16.0) g/dL POC Hgb (12.0-16.0) g/dl Hct (37-47) % POC Hct (37-47) % MCV (80-100) fL MCH (25-34) pg MCHC (32-36) g/dL RDW Std Deviation (36.4-46.3) fL RDW Coeff of [place] (11.5-14.5) % Plt Count (130-400) K/uL MPV (7.4-10.4) fL Immature Gran % (Auto) % Neut % (Auto) % Lymph % (Auto) % [place] % (Auto) % Eos % (Auto) % Baso % (Auto) % Immature Gran # (Auto) (0.00-0.02) K/uL Neut # (Auto) (1.4-6.5) K/uL Lymph # (Auto) (1.2-3.4) K/uL [place] # (Auto) (0.11-0.59) K/uL Eos # (Auto) (0-0.5) K/uL Baso # (Auto) (0-0.2) K/uL ESR (0-21) mm/hr PT Cancelled INR Cancelled APTT Cancelled PTT Ratio Cancelled VBG pH (7.36-7.41) VBG pCO2 (38-50) mmHg VBG pO2 mmHg VBG HCO3 mmol/L VBG O2 Saturation % VBG Base Excess mEq/L Barometric Pressure mm/Hg POC Sodium (135-144) mEq/L Sodium 138 (136-145) mmol/L POC Potassium (3.3-5.0) mEq/L Potassium 4.7 (3.5-5.1) mmol/L POC Chloride (101-112) mEq/L Chloride 103 (98-107) mmol/L Carbon Dioxide 27 (21-32) mmol/L POC Total CO2 (24-31) mEq/l Anion Gap 8.0 (3-11) POC Anion Gap (16-25) mmol/L POC BUN (7-18) mg/dl BUN 12 (7-18) mg/dl Creatinine 1.07 (0.6-1.2) mg/dl POC Creatinine (0.6-1.3) mg/dl Est Cr Clr Drug Dosing 65.6 ml/min Est GFR ( Amer) 61.3 Est GFR (Non-Af Amer) 52.9 BUN/Creatinine Ratio 11.1 (10-20) Glucose 192 H (70-99) mg/dl POC Glucose (70-99) POC Glucose (other) (70-99) mg/dl Estimat Average Glucose mg/dl Hemoglobin A1c (4.5-5.6) % Osmolality 296 (280-300) mOsm/kg Lactate (0.4-2.0) mmol/L Calcium 8.6 (8.5-10.1) mg/dl POC Ioniz Calcium Ale (1.12-1.32) mmol/l Phosphorus (2.5-4.9) mg/dl Magnesium 2.1 (1.8-2.4) mg/dl Total Bilirubin 0.3 (0.2-1) mg/dl AST 24 (15-37) U/L ALT 28 (12-78) U/L Alkaline Phosphatase 137 H (45-117) U/L Troponin I < 0.015 (0-0.045) ng/ml C-Reactive Protein 0.72 H (0-0.29) mg/dl NT-Pro-B Natriuret Pep 80 (0-900) pg/ml Total Protein 7.6 (6.4-8.2) gm/dl Albumin 3.2 L (3.4-5.0) gm/dl Globulin 4.4 H (2.5-4.0) gm/dl Albumin/Globulin Ratio 0.7 L (0.9-2) Procalcitonin (0-0.5) ng/ml Urine Color Urine Appearance (Clear) Urine pH (4.5-7.5) Ur Specific [place] (1.000-1.030) Urine Protein (Negative) Urine Glucose (UA) (Negative) Urine Ketones (Negative) Urine Blood (Negative) Urine Nitrite (Negative) Urine Bilirubin (Negative) Urine Urobilinogen (Negative) Ur Leukocyte Esterase (Negative) Urine WBC (Auto) (0-5) /hpf Urine RBC (Auto) (0-4) /hpf U Hyaline Cast (Auto) (0-5) /lpf U Epithel Cells (Auto) (0-5) /lpf Urine Bacteria (Auto) (Negative) Urine Yeast (None Prsent) CSF Appearance CSF Color Xanthrochromic CSF WBC (0-5) /uL CSF RBC (0-) /uL CSF Cell Count Tube # CSF Chemistry Tube # CSF Glucose (40-70) mg/dl CSF Total Protein (15-45) mg/dl Nasal Screen MRSA (PCR) (Negative) Urine Opiates Screen (Neg) Ur Methadone, Qual (Neg) Urine Barbiturates (Neg) Ur Phencyclidine (PCP) (Neg) U Amphetamin/Meth Scrn (Neg) MDMA (Ecstasy) Screen (Neg) U Benzodiazepines Scrn (Neg) Ur Cocaine Metabolite (Neg) U Marijuana (THC) Screen (Neg) Ethyl Alcohol mg/dL (0-3) mg/dl 04/23/19 04/23/19 04/23/19 Range/Units 15:06 15:06 15:06 WBC 9.43 (4.8-10.8) K/uL RBC 4.53 (4.2-5.4) M/uL Hgb 13.9 (12.0-16.0) g/dL POC Hgb (12.0-16.0) g/dl Hct 40.6 (37-47) % POC Hct (37-47) % MCV 89.6 (80-100) fL MCH 30.7 (25-34) pg MCHC 34.2 (32-36) g/dL RDW Std Deviation 48.4 H (36.4-46.3) fL RDW Coeff of [place] 14.9 H (11.5-14.5) % Plt Count 270 (130-400) K/uL MPV 9.5 (7.4-10.4) fL Immature Gran % (Auto) 0.3 % Neut % (Auto) 58.9 % Lymph % (Auto) 29.6 % [place] % (Auto) 8.1 % Eos % (Auto) 2.8 % Baso % (Auto) 0.3 % Immature Gran # (Auto) 0.03 H (0.00-0.02) K/uL Neut # (Auto) 5.56 (1.4-6.5) K/uL Lymph # (Auto) 2.79 (1.2-3.4) K/uL [place] # (Auto) 0.76 H (0.11-0.59) K/uL Eos # (Auto) 0.26 (0-0.5) K/uL Baso # (Auto) 0.03 (0-0.2) K/uL ESR 69 H (0-21) mm/hr PT INR APTT PTT Ratio VBG pH (7.36-7.41) VBG pCO2 (38-50) mmHg VBG pO2 mmHg VBG HCO3 mmol/L VBG O2 Saturation % VBG Base Excess mEq/L Barometric Pressure mm/Hg POC Sodium (135-144) mEq/L Sodium (136-145) mmol/L POC Potassium (3.3-5.0) mEq/L Potassium (3.5-5.1) mmol/L POC Chloride (101-112) mEq/L Chloride (98-107) mmol/L Carbon Dioxide (21-32) mmol/L POC Total CO2 (24-31) mEq/l Anion Gap (3-11) POC Anion Gap (16-25) mmol/L POC BUN (7-18) mg/dl BUN (7-18) mg/dl Creatinine (0.6-1.2) mg/dl POC Creatinine (0.6-1.3) mg/dl Est Cr Clr Drug Dosing ml/min Est GFR ( Amer) Est GFR (Non-Af Amer) BUN/Creatinine Ratio (10-20) Glucose (70-99) mg/dl POC Glucose (70-99) POC Glucose (other) (70-99) mg/dl Estimat Average Glucose mg/dl Hemoglobin A1c (4.5-5.6) % Osmolality (280-300) mOsm/kg Lactate (0.4-2.0) mmol/L Calcium (8.5-10.1) mg/dl POC Ioniz Calcium Ale (1.12-1.32) mmol/l Phosphorus (2.5-4.9) mg/dl Magnesium (1.8-2.4) mg/dl Total Bilirubin (0.2-1) mg/dl AST (15-37) U/L ALT (12-78) U/L Alkaline Phosphatase (45-117) U/L Troponin I (0-0.045) ng/ml C-Reactive Protein (0-0.29) mg/dl NT-Pro-B Natriuret Pep (0-900) pg/ml Total Protein (6.4-8.2) gm/dl Albumin (3.4-5.0) gm/dl Globulin (2.5-4.0) gm/dl Albumin/Globulin Ratio (0.9-2) Procalcitonin < 0.05 (0-0.5) ng/ml Urine Color Urine Appearance (Clear) Urine pH (4.5-7.5) Ur Specific [place] (1.000-1.030) Urine Protein (Negative) Urine Glucose (UA) (Negative) Urine Ketones (Negative) Urine Blood (Negative) Urine Nitrite (Negative) Urine Bilirubin (Negative) Urine Urobilinogen (Negative) Ur Leukocyte Esterase (Negative) Urine WBC (Auto) (0-5) /hpf Urine RBC (Auto) (0-4) /hpf U Hyaline Cast (Auto) (0-5) /lpf U Epithel Cells (Auto) (0-5) /lpf Urine Bacteria (Auto) (Negative) Urine Yeast (None Prsent) CSF Appearance CSF Color Xanthrochromic CSF WBC (0-5) /uL CSF RBC (0-) /uL CSF Cell Count Tube # CSF Chemistry Tube # CSF Glucose (40-70) mg/dl CSF Total Protein (15-45) mg/dl Nasal Screen MRSA (PCR) (Negative) Urine Opiates Screen (Neg) Ur Methadone, Qual (Neg) Urine Barbiturates (Neg) Ur Phencyclidine (PCP) (Neg) U Amphetamin/Meth Scrn (Neg) MDMA (Ecstasy) Screen (Neg) U Benzodiazepines Scrn (Neg) Ur Cocaine Metabolite (Neg) U Marijuana (THC) Screen (Neg) Ethyl Alcohol mg/dL (0-3) mg/dl PG Care Time/CCT Total # of Minutes Spent Total Time Spent with Patient: Total time spent is greater than 50% in coordination of care (as documented) at patient's floor/unit and/or counseling patient: (1) Respiratory failure with hypoxia Chronicity: acute Qualified Code(s): J96.01 - Acute respiratory failure with hypoxia
[2019-04-24] MEDS ORDERED: LISINOPRIL 2.5 MG TAB PO SCH (09:00)
--- NOTE | 2019-04-24 14:14 | Electroencephalogram ---
EEG Procedure Note Date of Service April 24, 2019 Start / End Times Start Time: 11:12 End Time: 11:[address] Larry Dinh History A 69 year old woman with 2 possible seizures. EEG performed for evaluation of epileptiform activity. Home Medication List Home Medications Medication Instructions Recorded Confirmed Type atorvastatin 80 mg PO HS 04/23/19 04/23/19 History buspirone 5 mg PO BID 04/23/19 04/23/19 History clonazepam 1 mg PO BID 04/23/19 04/23/19 History doxepin 25 mg PO HS 04/23/19 04/23/19 History ergocalciferol (vitamin D2) 50,000 unit PO UD 04/23/19 04/23/19 History [Vitamin D2] escitalopram oxalate 30 mg PO QAM 04/23/19 04/23/19 History gabapentin 300 mg PO TID 04/23/19 04/23/19 History linagliptin [Tradjenta] 5 mg PO DAILY 04/23/19 04/23/19 History lisinopril 2.5 mg PO DAILY 04/23/19 04/23/19 History Inpatient Medication List Atorvastatin Calcium (Lipitor) 80 mg PO HS ADA Stop: 05/23/19 20:59 Last Admin: 04/23/19 20:42 Dose: 80 mg Documented by: [id number] Enoxaparin Sodium (Lovenox) 40 mg SQ Q24H ADA Stop: 05/23/19 18:59 Last Admin: 04/23/19 20:41 Dose: 40 mg Documented by: [id number] Escitalopram Oxalate (Lexapro Tab) 30 mg PO QAM ADA Stop: 05/24/19 08:59 Last Admin: 04/24/19 07:23 Dose: 30 mg Documented by: [id number] Gabapentin (Neurontin) 300 mg PO TID ADA Stop: 05/23/19 20:59 Last Admin: 04/24/19 13:42 Dose: 300 mg Documented by: [id number] Admin: 04/24/19 07:24 Dose: 300 mg Documented by: [id number] Admin: 04/23/19 20:42 Dose: 300 mg Documented by: [id number] Lisinopril (Zestril) 2.5 mg PO DAILY ADA Stop: 05/24/19 08:59 Last Admin: 04/24/19 07:24 Dose: 2.5 mg Documented by: [id number] Discontinued Medications Fentanyl Citrate (Fentanyl Citrate) Confirm Administered Dose 200 mcg .ROUTE .STK-MED ONE Stop: 04/23/19 17:28 Last Admin: 04/23/19 17:48 Dose: Not Given Documented by: [id number] Fentanyl Citrate (Fentanyl Citrate) 150 mcg IV NOW ONE Stop: 04/23/19 17:39 Last Admin: 04/23/19 17:47 Dose: 150 mcg Documented by: [id number] Piperacillin Sod/Tazobactam Sod (Zosyn) 4.5 gm in 120 mls @ 240 mls/hr IV NOW ONE Stop: 04/23/19 15:56 Last Infusion: 04/23/19 17:50 Dose: 0 mls/hr Documented by: [id number] Admin: 04/23/19 17:01 Dose: 240 mls/hr Documented by: [id number] Sodium Chloride (Nss 1000ml) 1,000 mls @ 999 mls/hr IV .Q1H1M ONE Stop: 04/23/19 16:27 Last Infusion: 04/23/19 17:50 Dose: 0 mls/hr Documented by: [id number] Admin: 04/23/19 16:06 Dose: 999 mls/hr Documented by: [id number] Propofol (Diprivan) 1,000 mg in 100 mls @ 3.504 mls/hr IV .Q24H ADA; Protocol Stop: 04/26/19 15:56 Last Admin: 04/23/19 18:53 Dose: Not Given Documented by: [id number] Famotidine 20 mg/ Syringe 5 mls @ 2.5 mls/min IV Q12H ADA Stop: 05/23/19 18:14 Last Admin: 04/24/19 06:39 Dose: 2.5 mls/min Documented by: [id number] Admin: 04/23/19 21:55 Dose: 2.5 mls/min Documented by: [id number] Ioversol (Optiray 320 125ml) 119 ml IV ONCE PRN PRN Reason: Interaction Checking Stop: 04/27/19 16:42 Last Admin: 04/23/19 16:44 Dose: 119 ml Documented by: [id number] Ketorolac Tromethamine (Toradol) 15 mg IV NOW ONE Stop: 04/23/19 21:58 Last Admin: 04/23/19 22:08 Dose: 15 mg Documented by: [id number] Propofol (Diprivan) Confirm Administered Dose 1,000 mg IV .WooWho-MED ONE Stop: 04/23/19 15:42 Last Admin: 04/23/19 15:48 Dose: 1,000 mg Documented by: [id number] Cosigned by: [id number] Tramadol HCl (Ultram) 25 mg PO Q4H PRN PRN Reason: Pain Stop: 05/23/19 21:56 Last Admin: 04/24/19 05:42 Dose: 25 mg Documented by: [id number] Admin: 04/24/19 00:25 Dose: 25 mg Documented by: [id number] Description This is a 21 electrode EEG with a single channel dedicated to limited EKG. The electrodes were placed in accordance with the International 10-20 system. REPORT: At the onset of the EEG, the patient is awake. The background activity consists of 9Hz, persistent, posteriorly dominant, moderate amplitude, symmetric and rhythmic activity that is reactive to eye opening. Anteriorly, it consists of a mixture of low voltage indeterminate activity and 15-25 Hz, persistent, low amplitude, symmetric and rhythmic activity. Stepwise intermittent photic stimulation does not induce any abnormalities. Drowsiness is characterized by low amplitude mixed frequency activity, roving eye movements, and decreased eye blinking and muscle artifact. IMPRESSION: This is a normal awake and drowsy EEG. There is no evidence of focal slowing or epileptiform activity.
[2019-04-24] MEDS ORDERED: HYDROmorphone INJ 0.5 MG/0.5 ML SYR IV STA (14:32)
--- NOTE | 2019-04-24 14:32 | Hospitalist Progress Note ---
Date of Service April 24, 2019 Assessment & Plan (1) Respiratory failure with hypoxia: -as patient was intubated briefly on 04/23/19 and initial CTA showed pulmonary infiltrates (Bilateral pulmonary airspace opacities. Atelectasis versus multifocal pneumonia versus aspiration), will give ceftriaxone and doxycycline empirically for pulmonary coverage in case there is pneumonia (2) Acute encephalopathy: Neck Pain Fall at home -Pt is 69 y/o F with PMH HTN, CKD II, RLS, depression, bipolar, obesity, presented to ER (on 04/23/19) and upon ER arrival was unresponsive. It is reported pt's neighbor called EMS. During EMS transport pt became unresponsive and she was placed on non-rebreather. In ER pt obtunded, initial vital signs P: 113, R: 14, BP: 132/70. BP increased to 192/122. Pt was intubated. During ER course pt started to arouse, and was seen by corporate real estate specialist and was extubated. -admission labs: No leukocytosis, lactate and procalcitonin WNL, glucose: 192, otherwise no significant electrolyte abnormality. UA unremarkable. -admission 04/23/19 imaging tests: CT HEAD: No acute intracranial findings Brain MRI: No acute intracranial abnormality. Considerable chronic small vessel changes throughout both cerebral hemispheres. Mild age-related atrophy. Carotid ultrasound: No hemodynamically significant stenosis seen within the carotid arteries. Mild plaque formation bilaterally CT C-SPINE: Prevertebral soft tissue edema. Multilevel degenerative change. No acute fractures or traumatic subluxations identified CTA CHEST: No evidence of acute PE. Bilateral pulmonary airspace opacities. Atelectasis versus multifocal pneumonia versus aspiration. CT ABD/PELVIS: Left basilar parenchymal infiltrate with mild right basilar dependent atelectasis. Otherwise no acute process in the abdomen or pelvis. Degenerative changes of the low thoracic and lumbar spine with no acute posttraumatic abnormality. -admission 04/23/19 lumbar puncture does not show evidence of meningitis -patient was monitored in the ICU and then transferred to medical/telemetry service on 04/24/19 -EEG on 04/24/19 This is a normal awake and drowsy EEG. There is no evidence of focal slowing or epileptiform activity. -in discussing with the patient on 04/24/19, it would appear that she may had had a fall recently in her bathroom but it is unclear as to the context of time between initial fall and onset of symptoms which brought patient to the hospital -PT/OT evaluations will be needed -patient's neck pain may and prevertebral soft tissue edema may be from the fall at home, treat conservatively with pain medications and ice -will try to titrate off nasal cannula oxygen -as patient was intubated briefly on 04/23/19and initial CTA showed pulmonary infiltrates, will give ceftriaxone and doxycycline empirically for pulmonary coverage in case there is pneumonia (3) Diabetes mellitus, type II: -HbA1c 6.9 -hold home champion Tradjenta -sliding scale insulin for now and diabetic diet (4) HTN (hypertension): -blood pressure controlled -continue low dose lisinopril 2.5 mg daily -monitor renal function -continue atorvastatin (5) Depression: History of depression and Bipolar Disorder -Patient reports that she also follows with [facility] for [employer] [facility], computer search shows that [facility] is associated with [facility] -Continue escitalopram -resume buspirone -continue to hold clonazepam, doxepin for now (6) Dyslipidemia: -Continue statin DVT Prophylaxis -SCDs Full Code Patient's sister Jasmina Merlos [phone], that patient follows with Dr Jade Qiu - [facility] for primary care but there were plans to switch primary care doctor to Internal Medicine [facility] (05/04/19 1:[address] Kristie Harvey) as outpatient Patient reports that she also follows with [facility] for [employer] [facility] Subjective Patient with some neck and hip discomfort. has been breathing on nasal cannula. was transferred out of ICU to medical/telemetry gardner. breathing is not labored. denies chest or abdomen pain. cooperative on exam Physical Exam Constitutional: cooperative ENMT: external ear and nose normal, oropharynx normal Neck: normal visual inspection and trachea midline Respiratory: normal respiratory effort, lungs clear to auscultation Cardiovascular: Rate/Rhythm: regular rate and regular rhythm Gastrointestinal (Abdomen): normal bowel sounds, soft, nontender, no hepatosplenomegaly Musculoskeletal: Head/Neck/Chest: normocephalic and head atraumatic Neurologic: PERRL, EOMI, accommodation nl, no face palsy, no dysarthria Psychiatric: Orientation: alert and cooperative Genitourinary: andres Results & Data Vital Signs (Past 12 Hours) Vital Signs Temp Pulse Pulse Resp BP BP Pulse Ox 04/24/19 09:20 36.8 C 78 18 127/85 98 04/24/19 07:31 36.8 C 89 17 164/98 H 96 04/24/19 07:30 92 H 19 90 04/24/19 07:00 80 14 124/82 99 04/24/19 05:00 75 23 123/85 98 04/24/19 04:30 77 15 138/94 97 04/24/19 04:00 36.8 C 75 13 137/95 96 04/24/19 03:30 76 17 108/75 98 04/24/19 03:00 76 13 114/73 97 (1) Respiratory failure with hypoxia Chronicity: acute Qualified Code(s): J96.01 - Acute respiratory failure with hypoxia
[2019-04-24] MEDS ORDERED: GLUCAGON FOR INJ 1 MG VIAL SQ PRN (14:54)
[2019-04-24] MEDS ORDERED: DEXTROSE 50% 50 ML SYRINGE IV PRN (14:54)
[2019-04-24] MEDS ORDERED: CARBOHYDRATES FOR HYPOGLYCEMIA PO PRN (14:54)
[2019-04-24] MEDS ORDERED: GLUCOSE 10 TABS/TUBE PO PRN (14:54)
[2019-04-24] MEDS ORDERED: GLUCOSE 40% GEL 15 GM TUBE PO PRN (14:54)
[2019-04-24] MEDS ORDERED: cefTRIAXone SODIUM 1,000 MG in DEXTROSE 5% 50 ML IV SCH (15:15)
[2019-04-24] MEDS ORDERED: cefTRIAXone SODIUM 2,000 MG in DEXTROSE 5% 50 ML IV SCH (15:30)
[2019-04-24] MEDS: DOXYCYCLINE HYCLATE 100 MG in DEXTROSE 5% 100 ML IV SCH (16:08)
[2019-04-24] MEDS: ACETAMINOPHEN 325 MG TAB PO PRN ×2 (16:37→23:56)
[2019-04-24] MEDS: INSULIN ASPART 100 UNITS/ML 3 ML PEN SC SCH ×2 (17:02→20:59)
[2019-04-24] MEDS ORDERED: KETOROLAC TROMETHAMINE 15 MG/ML VIAL IV ONE (18:00)
[2019-04-24] MEDS: OXYCODONE HCL IR 5 MG TAB (IMMEDIATE RELEASE) PO PRN (18:06)
[2019-04-24] MEDS: ATORVASTATIN 40 MG TAB PO SCH (20:14)
[2019-04-25] MEDS ORDERED: DEXAMETHASONE SOD PHOSPHATE 10 MG in SYRINGE 0 ML IV STA (00:20)
[2019-04-25] MEDS: LISINOPRIL 5 MG TAB PO SCH (00:44)
[2019-04-25] MEDS: OXYCODONE HCL IR 5 MG TAB (IMMEDIATE RELEASE) PO PRN ×2 (03:55→21:03)
[2019-04-25] MEDS: DOXYCYCLINE HYCLATE 100 MG in DEXTROSE 5% 100 ML IV SCH (03:55)
[2019-04-25 06:03] LABS: Basophils # (auto) 0.03 K/uL (0-0.2); Basophils % (auto) 0.3 %; Eosinophils # (auto) 0.07 K/uL (0-0.5); Eosinophils % (auto) 0.6 %; Hematocrit (blood only) 38.6 % (37-47); Hemoglobin 13.2 g/dL (12.0-16.0); Immature Granulocytes # (auto) 0.05 K/uL (0.00-0.02); Immature Granulocytes % (auto) 0.5 %; Lymphocytes # (auto) 1.61 K/uL (1.2-3.4); Lymphocytes % (auto) 14.8 %; Mean Corpuscular Hgb Conc 34.2 g/dL (32-36); Mean Corpuscular Volume 89.4 fL (80-100); Mean Platelet Volume 9.2 fL (7.4-10.4); Monocytes # (auto) 0.14 K/uL (0.11-0.59); Monocytes % (auto) 1.3 %; Neutrophils # (auto) 8.98 K/uL (1.4-6.5); Neutrophils % (auto) 82.5 %; Platelet Count 235 K/uL (130-400); RDW Coefficient of Variation 14.2 % (11.5-14.5); Red Blood Count 4.32 M/uL (4.2-5.4); White Blood Count 10.88 K/uL (4.8-10.8)
[2019-04-25 06:28] LABS: Albumin Level 3.3 gm/dl (3.4-5.0); Calcium 9.2 mg/dl (8.5-10.1); Creatinine Clr Calc Pharmacy 55.3 ml/min; Est GFR (African American) 53.4; Est GFR (Non-African American) 46.1; Potassium 4.6 mmol/L (3.5-5.1)
[2019-04-25 06:31] LABS: Albumin Globulin Ratio 0.8 (0.9-2); Bilirubin,Total 0.5 mg/dl (0.2-1); Globulin 4.2 gm/dl (2.5-4.0); Phosphorus 3.2 mg/dl (2.5-4.9); Total Protein 7.5 gm/dl (6.4-8.2)
[2019-04-25] MEDS: INSULIN ASPART 100 UNITS/ML 3 ML PEN SC SCH ×4 (08:24→21:04)
[2019-04-25] MEDS: ESCITALOPRAM OXALATE 20 MG TAB PO SCH (08:25)
[2019-04-25] MEDS: GABAPENTIN 300 MG CAP PO SCH ×3 (08:25→21:03)
[2019-04-25] MEDS ORDERED: HYDROmorphone INJ 0.5 MG/0.5 ML SYR IV STA (13:31)
--- NOTE | 2019-04-25 14:25 | CT Scan Report ---
CT head/brain wo con CT DOSE: 1050.88 mGycm HISTORY: Mental status change rule out subdural or epidural hematoma TECHNIQUE: Multiaxial CT images of the head were performed without the use of intravenous contrast. A dose lowering technique was utilized adhering to the principles of ALARA. Comparison: 04/23/2019 Findings: The paranasal sinuses and mastoid air cells are clear. The calvarium and skull base are int act. The ventricles and sulci are within normal limits. There is no mass, hematoma, midline shift, or acute infarct. Impression: No acute intracranial abnormality. The above report was generated using voice recognition software. It may contain grammatical, syntax or spelling errors. Electronically signed by: Jignesh Davis M.D. 04/25/2019 2:23 PM
--- NOTE | 2019-04-25 14:26 | XRay Report ---
XR chest 2V routine CLINICAL HISTORY: follow lung infiltrates COMPARISON STUDY: 04/23/2019 FINDINGS: Interval extubation. Lungs are considered clear. Mild chronic elevation right hemidiaphragm . IMPRESSION: 1. Interval extubation. 2. Lungs are considered clear. The above report was generated using voice recognition software. It may contain grammatical, syntax or spelling errors. Electronically signed by: Jignesh Davis M.D. 04/25/2019 2:24 PM
--- NOTE | 2019-04-25 15:02 | Hospitalist Progress Note ---
Date of Service April 25, 2019 Assessment & Plan (1) Respiratory failure with hypoxia: -as patient was intubated briefly on 04/23/19 and initial CTA showed pulmonary infiltrates (Bilateral pulmonary airspace opacities. Atelectasis versus multifocal pneumonia versus aspiration), patient has been given ceftriaxone and doxycycline empirically for pulmonary coverage in case there is pneumonia starting on 04/25/19 -04/26/19: a 2 view Chest X ray with lungs appear to be clear; titrating down shanelle al cannula oxygen, transition antibiotic from IV antibiotics to oral Augmentin BID and oral doxycycline BID -plan to have 2 step test performed on 04/26/19 -resume combivent (2) Acute encephalopathy: Neck Pain Fall at home Intractable Headache -Pt is 69 y/o F with PMH HTN, CKD II, RLS, depression, bipolar, obesity, presented to ER (on 04/23/19) and upon ER arrival was unresponsive. It is reported pt's neighbor called EMS. During EMS transport pt became unresponsive and she was placed on non-rebreather. In ER pt obtunded, initial vital signs P: 113, R: 14, BP: 132/70. BP increased to 192/122. Pt was intubated. During ER course pt started to arouse, and was seen by parer and was extubated. -admission labs: No leukocytosis, lactate and procalcitonin WNL, glucose: 192, otherwise no significant electrolyte abnormality. UA unremarkable. -admission 04/23/19 imaging tests: CT HEAD: No acute intracranial findings Brain MRI: No acute intracranial abnormality. Considerable chronic small vessel changes throughout both cerebral hemispheres. Mild age-related atrophy. Carotid ultrasound: No hemodynamically significant stenosis seen within the car otid arteries. Mild plaque formation bilaterally CT C-SPINE: Prevertebral soft tissue edema. Multilevel degenerative change. No acute fractures or traumatic subluxations identified CTA CHEST: No evidence of acute PE. Bilateral pulmonary airspace opacities. Atelectasis versus multifocal pneumonia versus aspiration. CT ABD/PELVIS: Left basilar parenchymal infiltrate with mild right basilar dependent atelectasis. Otherwise no acute process in the abdomen or pelvis. Degenerative changes of the low thoracic and lumbar spine with no acute posttraumatic abnormality. -admission 04/23/19 lumbar puncture does not show evidence of meningitis -patient was monitored in the ICU and then transferred to medical/telemetry service on 04/24/19 -EEG on 04/24/19 This is a normal awake and drowsy EEG. There is no evidence of focal slowing or epileptiform activity. -in discussing with the patient on 04/24/19, it would appear that she may had had a fall recently in her bathroom but it is unclear as to the context of time between initial fall and onset of symptoms which brought patient to the hospital -PT/OT evaluations will be needed -patient's neck pain may and prevertebral soft tissue edema may be from the fall at home, treat conservatively with pain medications and ice -patient has been having complaints of headaches that are non responsive to medications. Head CT on 04/25/19 no subdural and no epidural hematoma. possible that headaches are from post-lumbar puncture related headache versus migraine. patient declining acetaminophen and has gotten intermediate dosing of dilaudid or Toradol and recently nocturnalist gave a dose of decadron, continue monitor and treat with analgesics (3) Diabetes mellitus, type II: -HbA1c 6.9 -hold home champion Tradjenta -sliding scale insulin for now and diabetic diet (4) HTN (hypertension): -blood pressure controlled -lisinopril 5 mg daily -would not increase YONAS inhibitor excessively to avoid hyperkalemia -resume patient's clonidine 1 mg BID -continue atorvastatin (5) Depression: History of depression and Bipolar Disorder -Patient reports that she also follows with [facility] in [place] which is associated with [facility] -Continue escitalopram -continue buspirone -resume doxepin -resume clonazepam 1 mg BID (6) Dyslipidemia: -Continue statin DVT Prophylaxis -SCDs Full Code Patient's sister Jasmina Merlos [phone], that patient follows with Dr Jade Qiu - [facility] for primary care but there were plans to switch primary care doctor to Internal Medicine [facility] (05/04/19 1:[address] Kristie Harvey) as outpatient Patient reports that she also follows with [facility] for behavioral health Case Management needs: Patient evaluated by physical therapist and is deemed unsafe to return home alone and recommended for physical therapy at a SNF (intermediate facility). Patient however is adamant about refusing placement. Her sister Jasmina Merlos [phone], would prefer that patient be discharged to her care when medically ready and then patient can do physical therapy on outpatient basis Subjective Patient evaluated by physical therapist and is deemed unsafe to return home alone and recommended for physical therapy at a SNF (intermediate facility). Patient however is adamant about refusing placement. Her sister Jasmina Merlos [phone], would prefer that patient be discharged to her care when medically ready and then patient can do physical therapy on outpatient basis. Patient is not in distress but since yesterday has been having headaches that continues despite pain medications. Given that she had reported that she had fall injury at home, a CT head scan was repeated and subdural or epidural hematoma has been rule out Patient also insisting that when she walks, she feels short of breath and would to be on oxygen when medically ready to be discharged. Patient also insists on wearing nasal cannula oxygen at rest. She has good oxygen saturation on 2 liters/min nasal cannula. She agrees to have oxygen titrated down and she agrees to the the 2 step testing tomorrow with respiratory therapist no chest pain, no palpitations, no acute distress. abdominal pain. no vomiting. no fever Patient's sister helped with verifying home medications and patient's medication's reconciled and most home medications generally restarted. will monitor to see if any side effects Physical Exam Constitutional: cooperative ENMT: external ear and nose normal, oropharynx normal Neck: normal visual inspection and trachea midline Respiratory: normal respiratory effort, lungs clear to auscultation Cardiovascular: Rate/Rhythm: regular rate and regular rhythm Gastrointestinal (Abdomen): normal bowel sounds, soft, nontender, no hepatosplenomegaly Musculoskeletal: Head/Neck/Chest: normocephalic and head atraumatic Neurologic: PERRL, EOMI, accommodation nl, no face palsy, no dysarthria Psychiatric: Orientation: alert and cooperative Results & Data Vital Signs (Past 12 Hours) Vital Signs Temp Pulse Pulse Resp BP Pulse Ox 04/25/19 12:11 96 04/25/19 11:52 36.7 C 98 H 18 157/95 H 96 04/25/19 07:31 100 H 04/25/19 06:56 36.6 C 100 H 20 159/91 H 92 04/25/19 03:55 37 C 93 H 20 156/74 H 98 (1) Respiratory failure with hypoxia Chronicity: acute Qualified Code(s): J96.01 - Acute respiratory failure with hypoxia
[2019-04-25] MEDS ORDERED: IBUPROFEN 200 MG TAB PO PRN (15:09)
[2019-04-25] MEDS: LISINOPRIL 20 MG TAB PO SCH (16:01)
[2019-04-25] MEDS: AMOXICILLIN/CLAVULANATE 875 MG TAB PO SCH (16:02)
[2019-04-25] MEDS: IPRATROPIUM BROMIDE/ALBUTEROL respimat INH INH SCH ×2 (16:02→21:03)
[2019-04-25] MEDS ORDERED: DOXEPIN HCL 25 MG CAPSULE PO SCH (21:00)
[2019-04-25] MEDS: cloNIDine HCl 0.1 MG TAB PO SCH (21:03)
[2019-04-25] MEDS: DOXYCYCLINE HYCLATE 100 MG CAP PO SCH (21:03)
[2019-04-25] MEDS: ATORVASTATIN 40 MG TAB PO SCH (21:04)
[2019-04-26] MEDS: ACETAMINOPHEN 325 MG TAB PO PRN (00:52)
[2019-04-26] MEDS: OXYCODONE HCL IR 5 MG TAB (IMMEDIATE RELEASE) PO PRN (04:41)
[2019-04-26] MEDS: LISINOPRIL 5 MG TAB PO SCH (07:38)
[2019-04-26] MEDS: AMOXICILLIN/CLAVULANATE 875 MG TAB PO SCH (07:38)
[2019-04-26] MEDS: IPRATROPIUM BROMIDE/ALBUTEROL respimat INH INH SCH (07:39)
[2019-04-26] MEDS: GABAPENTIN 300 MG CAP PO SCH (07:39)
[2019-04-26] MEDS: ESCITALOPRAM OXALATE 20 MG TAB PO SCH (07:40)
[2019-04-26] MEDS: DOXYCYCLINE HYCLATE 100 MG CAP PO SCH (07:41)
[2019-04-26] MEDS: cloNIDine HCl 0.1 MG TAB PO SCH (07:41)
[2019-04-26] MEDS: LISINOPRIL 20 MG TAB PO SCH (07:42)
[2019-04-26 08:01] LABS: Basophils # (auto) 0.01 K/uL (0-0.2); Basophils % (auto) 0.1 %; Eosinophils # (auto) 0.04 K/uL (0-0.5); Eosinophils % (auto) 0.4 %; Hematocrit (blood only) 34.7 % (37-47); Hemoglobin 11.8 g/dL (12.0-16.0); Immature Granulocytes # (auto) 0.03 K/uL (0.00-0.02); Immature Granulocytes % (auto) 0.3 %; Lymphocytes # (auto) 2.09 K/uL (1.2-3.4); Lymphocytes % (auto) 19.4 %; Mean Corpuscular Volume 88.3 fL (80-100); Monocytes # (auto) 0.78 K/uL (0.11-0.59); Monocytes % (auto) 7.2 %; Neutrophils # (auto) 7.83 K/uL (1.4-6.5); Neutrophils % (auto) 72.6 %; Platelet Count 212 K/uL (130-400); RDW Coefficient of Variation 14.5 % (11.5-14.5); RDW Standard Deviation 46.8 fL (36.4-46.3); Red Blood Count 3.93 M/uL (4.2-5.4); White Blood Count 10.78 K/uL (4.8-10.8)
[2019-04-26 08:18] LABS: Albumin Level 3.1 gm/dl (3.4-5.0); BUN Creatinine Ratio 15.7 (10-20); Calcium 9.1 mg/dl (8.5-10.1); Creatinine Clr Calc Pharmacy 56.3 ml/min; Est GFR (African American) 56.8; Potassium 4.1 mmol/L (3.5-5.1)
[2019-04-26 08:21] LABS: Albumin Globulin Ratio 0.8 (0.9-2); Bilirubin,Total 0.4 mg/dl (0.2-1); Globulin 3.8 gm/dl (2.5-4.0); Total Protein 6.9 gm/dl (6.4-8.2)
[2019-04-26] MEDS: INSULIN ASPART 100 UNITS/ML 3 ML PEN SC SCH ×2 (09:04→11:56)
--- NOTE | 2019-04-26 11:26 | Hospitalist Progress Note ---
Date of Service April 26, 2019 Assessment & Plan (1) Respiratory failure with hypoxia: -as patient was intubated briefly on 04/23/19 and initial CTA showed pulmonary infiltrates (Bilateral pulmonary airspace opacities. Atelectasis versus multifocal pneumonia versus aspiration), patient has been given ceftriaxone and doxycycline empirically for pulmonary coverage in case there is pneumonia starting on 04/25/19 -04/25/19: a 2 view Chest X ray with lungs appear to be clear; titrating down shanelle al cannula oxygen, transition antibiotic from IV antibiotics to oral Augmentin BID and oral doxycycline BID -by 04/26/19, patient continues to be on room air at rest and she passed the 2 step test performed on 04/26/19 and does not require supplemental oxygen with ambulation -continue combivent -continue with respiratory antibiotics of amoxicillin/clavunalate 875 mg twice a day for 7 more days and Doxycycline 100 mg twice a day for 7 more days and these prescriptions were sent to [facility] [address] [facility] BERYL Wong (2) Acute encephalopathy: Neck Pain Fall at home Intractable Headache -Pt is 69 y/o F with PMH HTN, CKD II, RLS, depression, bipolar, obesity, presented to ER (on 04/23/19) and upon ER arrival was unresponsive. It is report ed pt's neighbor called EMS. During EMS transport pt became unresponsive and she was placed on non-rebreather. In ER pt obtunded, initial vital signs P: 113, R: 14, BP: 132/70. BP increased to 192/122. Pt was intubated. During ER course pt started to arouse, and was seen by inspector timers and was extubated. -admission labs: No leukocytosis, lactate and procalcitonin WNL, glucose: 192, otherwise no significant electrolyte abnormality. UA unremarkable. -admission 04/23/19 imaging tests: CT HEAD: No acute intracranial findings Brain MRI: No acute intracranial abnormality. Considerable chronic small vessel changes throughout both cerebral hemispheres. Mild age-related atrophy. Carotid ultrasound: No hemodynamically significant stenosis seen within the carotid arteries. Mild plaque formation bilaterally CT C-SPINE: Prevertebral soft tissue edema. Multilevel degenerative change. No acute fractures or traumatic subluxations identified CTA CHEST: No evidence of acute PE. Bilateral pulmonary airspace opacities. Atelectasis versus multifocal pneumonia versus aspiration. CT ABD/PELVIS: Left basilar parenchymal infiltrate with mild right basilar dependent atelectasis. Otherwise no acute process in the abdomen or pelvis. Degenerative changes of the low thoracic and lumbar spine with no acute posttraumatic abnormality. -admission 04/23/19 lumbar puncture does not show evidence of meningitis -patient was monitored in the ICU and then transferred to medical/telemetry service on 04/24/19 -EEG on 04/24/19 This is a normal awake and drowsy EEG. There is no evidence of focal slowing or epileptiform activity. -in discussing with the patient on 04/24/19, it would appear that she may had had a fall recently in her bathroom but it is unclear as to the context of time between initial fall and onset of symptoms which brought patient to the hospital -PT/OT evaluations will be needed -patient's neck pain may and prevertebral soft tissue edema may be from the fall at home, treat conservatively with pain medications and ice -patient has been having complaints of headaches that are non responsive to medications. Head CT on 04/25/19 no subdural and no epidural hematoma. possible that headaches are from post-lumbar puncture related headache versus migraine. patient declining acetaminophen and has gotten intermediate dosing of dilaudid or Toradol and recently nocturnalist gave a dose of decadron, continue monitor and treat with analgesics 04/26/19: Patient's headache and neck pain is resolved. Ibuprofen prescription 200 mg every 6 hours as needed is sent to pharmacy [facility] [address] [facility] BERYL Wong (3) Diabetes mellitus, type II: -HbA1c 6.9 -held home dose linagliptin while inpatient and was on sliding scale insulin and diabetic diet -patient may resume home dose linagliptin on discharge (4) HTN (hypertension): -blood pressure controlled -continue patient's clonidine 1 mg BID -continue atorvastatin -as of 04/26/19, serum potassium is 4.1 and home dosing of lisinopril 20 mg daily resumed (5) Depression: History of depression and Bipolar Disorder -Patient reports that she also follows with [facility] in [place] which is associated with [facility] -Continue escitalopram -continue buspirone -continue doxepin -continue clonazepam 1 mg BID (6) Dyslipidemia: -Continue statin DVT Prophylaxis -SCDs Full Code Discharge Diagnosis Respiratory failure with hypoxia (now resolved); Acute encephalopathy (now resolved); Neck Pain, Intractable Headache (now resolved); Diabetes mellitus type II; History of depression and Bipolar disorder Patient's sister Jasmina Merlos [phone], that patient follows with Dr Jade Qiu - [facility] for primary care but there were plans to switch primary care doctor to Internal Medicine [place] (05/04/19 1:[address] Kristie Harvey) as outpatient Patient reports that she also follows with [facility] On 04/25/19 Patient evaluated by physical therapist and is deemed unsafe to return home alone and recommended for physical therapy at a SNF (correction facility). Patient however is adamant about refusing placement. Her sister Vikki Merlos [phone], would prefer that patient be discharged to her care when medically ready and then patient can do physical therapy on outpatient basis As of 04/26/19 Patient is discharged to home under the care of her sister (Patient is recommended to follow up with primary care provider Jade Qiu or her colleagues at [facility] since patient has not initially seen new [facility] primary care provider Kristie Harvey MD Department Internal Medicine [facility] as she was originally scheduled for 05/04/19 so that continuity of care can be better provided from post follow up hospital discharge If patient would like to see [facility] primary care provider instead, the 05/04/19 appointment has been moved up to 04/30/2019 3:00 PM Provider Kristie Harvey MD Department Internal Medicine [facility] in order for close follow up Patient's headache is resolved and neck pain. Ibuprofen prescription 200 mg every 6 hours as needed is sent to pharmacy [facility] [address] Because patient was intubated and had lung infiltrates seen on imaging on day of intubation, patient should continue with respiratory antibiotics of amoxicillin/clavunalate 875 mg twice a day for 7 more days and Doxycycline 100 mg twice a day for 7 more days and these prescriptions [facility]) Subjective Patient reports that headache is gone. No neck pain. breathing on room air and ambulated on room air. no shortness of breath. no chest pain. no vomiting. has been afebrile. is comfortable. no distress. Discharge plans and instructions discussed at length Physical Exam Constitutional: cooperative ENMT: external ear and nose normal, oropharynx normal Neck: normal visual inspection and trachea midline Respiratory: normal respiratory effort, lungs clear to auscultation Cardiovascular: Rate/Rhythm: regular rate and regular rhythm Gastrointestinal (Abdomen): normal bowel sounds, soft, nontender, no hepatosplenomegaly Musculoskeletal: Head/Neck/Chest: normocephalic and head atraumatic Neurologic: PERRL, EOMI, accommodation nl, no face palsy, no dysarthria Psychiatric: Orientation: alert and cooperative Results & Data Vital Signs (Past 12 Hours) Vital Signs Temp Pulse Pulse Pulse Pulse Pulse Resp 04/26/19 08:00 36.6 C 76 79 20 04/26/19 07:29 107 H 94 H 87 04/26/19 04:00 36.5 C 91 H 19 04/26/19 00:00 103 H Resp Resp Resp BP BP Pulse Ox Pulse Ox 04/26/19 08:00 162/84 H 161/89 H 90 04/26/19 07:29 21 20 18 98 04/26/19 04:00 132/84 92 04/26/19 00:00 Pulse Ox Pulse Ox 04/26/19 08:00 04/26/19 07:29 99 92 04/26/19 04:00 04/26/19 00:00 (1) Respiratory failure with hypoxia Chronicity: acute Qualified Code(s): J96.01 - Acute respiratory failure with hypoxia
[2019-04-26] MEDS ORDERED: LISINOPRIL 5 MG TAB PO ONE (11:27)
--- NOTE | 2019-04-26 11:43 | Discharge Summary ---
Date of Service April 26, 2019 Admission HPI Per Admitting Provider Pt is 69 y/o F with PMH HTN, CKD II, RLS, depression, bipolar, obesity, presented to ER and upon ER arrival was unresponsive. It is reported pt's neighbor called EMS. During EMS transport pt became unresponsive and she was placed on non-rebreather. In ER pt obtunded, inital vital signs P: 113, R: 14, BP: 132/70. BP increased to 192/122. Pt was intubated. During ER course pt started to arouse, and was seen by car rental clerk and was extubated. Pt now awake but sleepy with stable vital signs. Pt states does not remember what happened today, but reports she thinks she took her morning meds. Pt does not know what medications she is on. She states that she takes them how the bottle says and denies taking any additional doses of medications. Reports only OTC med she uses is Ibuprofen 4 tabs BID for chronic back pain. She states yesterday started with nausea and feeling dizzy. Denies syncope yesterday. She reports recurrent falls. States last week fell backwards and broke her toilet. Reports fell out of pickup truck 2 weeks ago and since has had pain to left upper leg. Has a walker to use. Pt states recently when urinating will have BM at same time but is unable to report if loose or formed stools. Denies dysuria, hematuria, melena or hematochezia. Denies abdominal pain. Pt states for past month has been feeling like SOB. Currently in ER on oxygen via NC and states that she feels better on oxygen. Denies any CP, cough, fever/chills. Denies current LOPEZ. Further ROS difficult to obtain secondary to pt's drowsiness, probable secondary to recent propofol Principal Diagnosis Respiratory failure with hypoxia (now resolved); Acute encephalopathy (now resolved); Neck Pain, Intractable Headache (now resolved); Diabetes mellitus type II; History of depression and Bipolar disorder Discharge Exam Constitutional cooperative ENMT external ear and nose normal, oropharynx normal Neck normal visual inspection and trachea midline Respiratory normal respiratory effort, lungs clear to auscultation Cardiovascular Rate/Rhythm: regular rate and regular rhythm Gastrointestinal (Abdomen) normal bowel sounds, soft, nontender, no hepatosplenomegaly Musculoskeletal Head/Neck/Chest: normocephalic and head atraumatic Neurologic PERRL, EOMI, accommodation nl, no face palsy, no dysarthria Psychiatric Orientation: alert and cooperative Discharge Data Allergies Allergy/AdvReac Type Severity Reaction Status Date / Time latex Allergy Unknown rash Verified 01/23/12 11:02 Penicillins Allergy Unknown Verified 04/23/19 21:03 Consultations 04/23/19 17:35 ED Decision to Admit Stat 04/23/19 18:49 Consult Case Management - Discharge Planning Routine Consult Tree Killer Routine Ordered Studies 04/23/19 15:27 CT abd pelvis IV con only Stat CT angio chest PE protocol Stat CT cervical spine wo con Stat CT head/brain wo con Stat 04/23/19 18:49 MR brain wo con Stat US carotid doppler BI Stat 04/25/19 13:31 CT head/brain wo con Routine Hospital Course (1) Respiratory failure with hypoxia: -as patient was intubated briefly on 04/23/19 and initial CTA showed pulmonary infiltrates (Bilateral pulmonary airspace opacities. Atelectasis versus multifocal pneumonia versus aspiration), patient has been given ceftriaxone and doxycycline empirically for pulmonary coverage in case there is pneumonia starting on 04/25/19 -04/25/19: a 2 view Chest X ray with lungs appear to be clear; titrating down nasal cannula oxygen, transition antibiotic from IV antibiotics to oral Augmentin BID and oral doxycycline BID -by 04/26/19, patient continues to be on room air at rest and she passed the 2 step test performed on 04/26/19 and does not require supplemental oxygen with ambulation -continue combivent -continue with respiratory antibiotics of amoxicillin/clavunalate 875 mg twice a day for 7 more days and Doxycycline 100 mg twice a day for 7 more days and these prescriptions were sent to [facility] [address] [place] [address] BERYL Wong (2) Acute encephalopathy: Neck Pain Fall at home Intractable Headache -Pt is 69 y/o F with PMH HTN, CKD II, RLS, depression, bipolar, obesity, presented to ER (on 04/23/19) and upon ER arrival was unresponsive. It is reported pt's neighbor called EMS. During EMS transport pt became unresponsive and she was placed on non-rebreather. In ER pt obtunded, initial vital signs P: 113, R: 14, BP: 132/70. BP increased to 192/122. Pt was intubated. During ER course pt started to arouse, and was seen by car rental clerk and was extubated. -admission labs: No leukocytosis, lactate and procalcitonin WNL, glucose: 192, otherwise no significant electrolyte abnormality. UA unremarkable. -admission 04/23/19 imaging tests: CT HEAD: No acute intracranial findings Brain MRI: No acute intracranial abnormality. Considerable chronic small vessel changes throughout both cerebral hemispheres. Mild age-related atrophy. Carotid ultrasound: No hemodynamically significant stenosis seen within the carotid arteries. Mild plaque formation bilaterally CT C-SPINE: Prevertebral soft tissue edema. Multilevel degenerative change. No acute fractures or traumatic subluxations identified CTA CHEST: No evidence of acute PE. Bilateral pulmonary airspace opacities. Atelectasis versus multifocal pneumonia versus aspiration. CT ABD/PELVIS: Left basilar parenchymal infiltrate with mild right basilar de pendent atelectasis. Otherwise no acute process in the abdomen or pelvis. Degenerative changes of the low thoracic and lumbar spine with no acute posttraumatic abnormality. -admission 04/23/19 lumbar puncture does not show evidence of meningitis -patient was monitored in the ICU and then transferred to medical/telemetry service on 04/24/19 -EEG on 04/24/19 This is a normal awake and drowsy EEG. There is no evidence of focal slowing or epileptiform activity. -in discussing with the patient on 04/24/19, it would appear that she may had had a fall recently in her bathroom but it is unclear as to the context of time between initial fall and onset of symptoms which brought patient to the hospital -PT/OT evaluations will be needed -patient's neck pain may and prevertebral soft tissue edema may be from the fall at home, treat conservatively with pain medications and ice -patient has been having complaints of headaches that are non responsive to medications. Head CT on 04/25/19 no subdural and no epidural hematoma. possible that headaches are from post-lumbar puncture related headache versus migraine. patient declining acetaminophen and has gotten intermediate dosing of dilaudid or Toradol and recently nocturnalist gave a dose of decadron, continue monitor and treat with analgesics 04/26/19: Patient's headache and neck pain is resolved. Ibuprofen prescription 200 mg every 6 hours as needed is sent to pharmacy [facility] [address] [place], [place] [address]center BERYL Wong (3) Diabetes mellitus, type II: -HbA1c 6.9 -held home dose linagliptin while inpatient and was on sliding scale insulin and diabetic diet -patient may resume home dose linagliptin on discharge (4) HTN (hypertension): -blood pressure controlled -continue patient's clonidine 1 mg BID -continue atorvastatin -as of 04/26/19, serum potassium is 4.1 and home dosing of lisinopril 20 mg daily resumed (5) Depression: History of depression and Bipolar Disorder -Patient reports that she also follows with [facility] in [place] which is associated with [facility] -Continue escitalopram -continue buspirone -continue doxepin -continue clonazepam 1 mg BID (6) Dyslipidemia: -Continue statin DVT Prophylaxis -SCDs Full Code Discharge Diagnosis Respiratory failure with hypoxia (now resolved); Acute encephalopathy (now resolved); Neck Pain, Intractable Headache (now resolved); Diabetes mellitus type II; History of depression and Bipolar disorder Patient's sister Jasmina Merlos [phone], that patient follows with Dr Jade Qiu - [facility] for primary care but there were plans to switch primary care doctor to Internal Medicine [facility] (05/04/19 1:[address] Kristie Harvey) as outpatient Patient reports that she also follows with [facility] On 04/25/19 Patient evaluated by physical therapist and is deemed unsafe to return home alone and recommended for physical therapy at a SNF (usp facility). Patient however is adamant about refusing placement. Her sister Jasmina Merlos [phone], would prefer that patient be discharged to her care when medically ready and then patient can do physical therapy on outpatient basis As of 04/26/19 Patient is discharged to home under the care of her sister (Patient is recommended to follow up with primary care provider Jade Qiu or her colleagues at [facility] since patient has not initially seen new [facility] primary care provider Kristie Harvey MD Department Internal Medicine [facility] as she was originally scheduled for 05/04/19 so that continuity of care can be better provided from post follow up hospital discharge If patient would like to see [facility] primary care provider instead, the 05/04/19 appointment has been moved up to 04/30/2019 3:00 PM Provider Kristie Harvey MD Department Internal Medicine [facility] in order for close follow up Patient's headache is resolved and neck pain. Ibuprofen prescription 200 mg every 6 hours as needed is sent to pharmacy [facility] [address] [place] [address] BERYL Wong Because patient was intubated and had lung infiltrates seen on imaging on day of intubation, patient should continue with respiratory antibiotics of amoxicillin/clavunalate 875 mg twice a day for 7 more days and Doxycycline 100 mg twice a day for 7 more days and these prescriptions were sent to [facility] [address] [place] [address] BERYL Wong) Total Time Total Time Spent Total Time Spent (In Minutes): 40 minutes Total Time Includes: Examination of the Patient, Discharge Planning, Medication Reconciliation and Communication With Other Providers Discharge Plan Discharge Items Patient Disposition: Home - Home Health Services Reason For Visit: UNRESPONSIVE Discharge Diagnosis: Respiratory failure with hypoxia (now resolved); Acute encephalopathy (now resolved); Neck Pain, Intractable Headache; Diabetes mellitus type II; History of depression and Bipolar disorder Condition: Good Discharge Goals: Improve disease control Activity: Resume your previous activity Non-emergency contact: Primary Care Provider Call non-emergency contact if: you have any medication questions Follow-up/Referrals: Jade Qiu DO [Primary Care Provider] - Diet: Carb Consistent or DM2 Addtl Provider Instructions: Patient is discharged to home under the care of her sister Patient is recommended to follow up with primary care provider Jade Qiu or her colleagues at [facility] since patient has not initially seen new [facility] primary care provider Kristie Harvey MD Department Internal Medicine [facility] as she was originally scheduled for 05/04/19 so that continuity of care can be better provided from post follow up hospital discharge If patient would like to see [facility] primary care provider instead, the 05/04/19 appointment has been moved up to 04/30/2019 3:00 PM Provider Kristie Harvey MD Department Internal Medicine [facility] in order for close follow up Patient's headache and neck pain is resolved. Ibuprofen prescription 200 mg every 6 hours as needed is sent to pharmacy [facility] [address] [place] [address] BERYL Wong Because patient was intubated and had lung infiltrates seen on imaging on day of intubation, patient should continue with respiratory antibiotics of amoxicil holli/clavunalate 875 mg twice a day for 7 more days and Doxycycline 100 mg twice a day for 7 more days and these prescriptions were sent to [facility] [address] [place] [address] BERYL Wong Prescriptions: New doxycycline hyclate 100 mg Capsule 100 mg PO BID 7 Days Qty: 14 RF: 0 amoxicillin-pot clavulanate 875-125 mg Tablet 1 tab PO BIDM 7 Days Qty: 14 RF: 0 ibuprofen 200 mg Tablet 200 mg PO Q6H PRN (Reason: pain) 5 Days Qty: 20 RF: 0 Continued buspirone 5 mg tablet 5 mg PO BID RF: 0 atorvastatin 80 mg tablet 80 mg PO HS RF: 0 doxepin 25 mg capsule 25 mg PO HS RF: 0 clonazepam 1 mg tablet 1 mg PO BID RF: 0 gabapentin 300 mg capsule 300 mg PO TID RF: 0 ergocalciferol (vitamin D2) [Vitamin D2] 50,000 unit capsule 50,000 unit PO WK RF: 0 escitalopram oxalate 20 mg tablet 30 mg PO QAM RF: 0 Tradjenta 5 mg tablet 5 mg PO DAILY RF: 0 clonidine HCl 0.1 mg tablet 0.1 mg PO BID RF: 0 lisinopril 20 mg tablet 20 mg PO DAILY RF: 0 Combivent Respimat 20-100 mcg/actuation Mist 1 puff INHALATION QID RF: 0 Stand-Alone Forms: [facility] Discharge Orders: Discharge Order (Routine); Ordered 04/26/19 Ordered By: Larry Dinh Admission Data Admit Date/Time: 04/23/19 18:03 Attending Provider: Larry Dinh Admit Provider: Lev García Primary Care Provider: Jade Qiu Other Providers: Lev García ; Rosendo Blackwell Service: Telemetry Medical
[2019-04-27] MEDS ORDERED: ERGOCALCIFEROL 50,000 UNITS CAP PO SCH (09:00)
== END 2019-04-26 13:06 | disposition home health service (06) | DRG 208 ==
LOC: ED 15:22 → 1E 18:03 → 2N 04-24 09:15

== ENCOUNTER 2019-05-12 14:00 | Observation (INO) ==
--- NOTE | 2019-05-12 14:29 | Emergency Department Note ---
Entered by Maritza Gramajo acting as a scribe for History of Present Illness General Chief complaint: Unresponsive Stated complaint: unresponsive Source: patient and EMS History of Present Illness Onset (ago): hour(s) 2 Location: left and right Pain Consistency: + other (episode) Quality: + other (found unresponsive ) Associated symptoms: + chest pain and + other (+tired; ) The patient is a 69 year old female who presents to the Emergency Room after an episode of being found unresponsive in her home prior to arrival around 1315, per EMS. EMS states the patient was receiving physical therapy when the patient stated she was tired, laid down, and became unresponsive. EMS states they got a slight response from painful stimuli test. The patient did not have a fall or injury, per EMS. EMS states the patient's blood sugar was at 220. EMS reports this came on all of a sudden. The patient states she has chest pain. The patient also notes she does not smoke and has not left country recently. Home Medications Home Medications Medication Instructions Recorded Confirmed Type Tradjenta 5 mg PO DAILY 04/23/19 05/12/19 History atorvastatin 80 mg PO HS 04/23/19 05/12/19 History buspirone 5 mg PO DAILY 04/23/19 05/12/19 History clonazepam 1 mg PO BID 04/23/19 05/12/19 History doxepin 25 mg PO HS 04/23/19 05/12/19 History ergocalciferol (vitamin D2) 50,000 unit PO WK 04/23/19 05/12/19 History [Vitamin D2] escitalopram oxalate 20 mg PO QAM 04/23/19 05/12/19 History gabapentin 300 mg PO TID 04/23/19 05/12/19 History Combivent Respimat 1 puff INHALATION QID 04/25/19 05/12/19 History clonidine HCl 0.1 mg PO BID 04/25/19 05/12/19 History lisinopril 20 mg PO DAILY 04/25/19 05/12/19 History Allergies Allergy/AdvReac Type Severity Reaction Status Date / Time latex Allergy Unknown rash Verified 01/23/12 11:02 Penicillins Allergy Unknown Verified 04/23/19 21:03 Past Med/Surg History Medical History Dyslipidemia (Chronic) RLS (restless legs syndrome) (Chronic) HTN (hypertension) (Chronic) Obesity (Chronic) CKD (chronic kidney disease), stage II (Chronic) Depression (Chronic) Bipolar disorder (Chronic) Diabetes mellitus, type II (Chronic) Stomach problems Emphysema lung Diabetes HTN (hypertension) Heart disease Family History Other Cancer Diabetes Heart disease Hypertension Social History Preferred Language: [place] Communication Ability: Effective Laboratory Equipment Installer Required: No Beliefs That Will Affect Care: None Current Living Situation: Alone Feels Safe at Home: Yes Smoking Status: Never smoker Hx Alcohol Use: No Hx Substance Use: No Review of Systems See HPI for pertinent positives & negatives. and A total of 10 systems reviewed and were otherwise negative Physical Exam Vital Signs Vital Signs - 24 hr 05/12/19 14:06 05/12/19 14:08 05/12/19 14:10 Temperature 36.9 C Temperature Source Oral Sepsis Recent Fever Within 48 Hours No Sepsis New/Unexplained Change in Mental Status No Sepsis Action Taken by Nursing No Action Required Pulse Rate 106 H 102 H Pulse Rate [Right Finger] Pulse Rate from SpO2 Sensor 106 H 103 H Respiratory Rate 12 17 Respiratory Effort / Characteristics Spontaneous Respiratory Depth Normal Respiratory Pattern Irregular Blood Pressure 134/99 134/99 Blood Pressure [Left Arm] Blood Pressure Mean 110 110 Blood Pressure Mean [Left Arm] Blood Pressure Position Sitting Blood Pressure Position [Left Arm] Pulse Oximetry 100 98 96 Oxygen Delivery Method Oxymask Oxymask Oxygen Flow Rate 4 05/12/19 14:15 05/12/19 14:28 05/12/19 14:30 Temperature Temperature Source Sepsis Recent Fever Within 48 Hours Sepsis New/Unexplained Change in Mental Status Sepsis Action Taken by Nursing Pulse Rate 106 H 94 H Pulse Rate [Right Finger] 91 H Pulse Rate from SpO2 Sensor 106 H 94 H Respiratory Rate 27 H 10 L 13 Respiratory Effort / Characteristics Non-Labored Spontaneous Respiratory Depth Normal Respiratory Pattern Regular Blood Pressure 121/95 Blood Pressure [Left Arm] 121/85 Blood Pressure Mean 103 Blood Pressure Mean [Left Arm] 97 Blood Pressure Position Blood Pressure Position [Left Arm] Lying Pulse Oximetry 97 96 96 Oxygen Delivery Method Oxymask Oxygen Flow Rate 4 05/12/19 14:33 05/12/19 14:46 05/12/19 15:00 Temperature Temperature Source Sepsis Recent Fever Within 48 Hours Sepsis New/Unexplained Change in Mental Status Sepsis Action Taken by Nursing Pulse Rate 97 H 97 H 94 H Pulse Rate [Right Finger] Pulse Rate from SpO2 Sensor 97 H 97 H 95 H Respiratory Rate 14 10 L 8 L Respiratory Effort / Characteristics Respiratory Depth Respiratory Pattern Blood Pressure 140/87 134/83 Blood Pressure [Left Arm] Blood Pressure Mean 104 100 Blood Pressure Mean [Left Arm] Blood Pressure Position Blood Pressure Position [Left Arm] Pulse Oximetry 97 98 97 Oxygen Delivery Method Oxygen Flow Rate 05/12/19 15:01 05/12/19 15:33 05/12/19 15:34 Temperature Temperature Source Sepsis Recent Fever Within 48 Hours Sepsis New/Unexplained Change in Mental Status Sepsis Action Taken by Nursing Pulse Rate 94 H 83 88 Pulse Rate [Right Finger] Pulse Rate from SpO2 Sensor 94 H 87 Respiratory Rate 13 24 12 Respiratory Effort / Characteristics Respiratory Depth Respiratory Pattern Blood Pressure 121/85 157/98 H Blood Pressure [Left Arm] Blood Pressure Mean 97 117 Blood Pressure Mean [Left Arm] Blood Pressure Position Blood Pressure Position [Left Arm] Pulse Oximetry 97 98 Oxygen Delivery Method Oxygen Flow Rate GENERAL: The patient is listless. She responds to loud verbal commands as well as painful stimuli. She does not follow commands appropriately. EYES: The conjunctivae are clear. The pupils are round and reactive. EARS, NOSE, MOUTH AND THROAT: The nose is without any evidence of any deformity. Mucous membranes are moist tongue is midline NECK: The neck is nontender and supple. RESPIRATORY: Normal respiratory effort is noted there is no evidence of wheezing rhonchi or rales CARDIOVASCULAR: Regular rate and rhythm noted there no murmurs rubs or gallops normal S1 normal S2 GASTROINTESTINAL: The abdomen is soft but distended. There is no tenderness guarding or rigidity appreciated. MUSCULOSKELETAL/EXTREMITIES: There is no evidence of gross deformity full range of motion is noted in the hips and shoulders SKIN: There is no obvious evidence of any rash. Trace pedal edema was noted bilaterally. NEUROLOGIC: Patient is awake to verbal and painful stimuli. The patient is not oriented to place or situation. Strength is symmetric but diminished. Patient is slow to answer questions. Course 1403: Past medical records reviewed. The patient was evaluated in room B1. A complete history and physical exam was performed. 1625: I reevaluated and updated the patient on her case 1642: I reviewed the patient's case with Felecia Betancur. Dr. Jolly- Ronnie Betancur will evaluate the patient for further management. Consultations Consultation #1: I reviewed the patient's case with Felecia Betancur. Dr. Jolly-Ronnie Betancur will evaluate the patient for further management. Time: 16:42 Administered Medications Ioversol (Optiray 320 125ml) 119 ml IV ONCE PRN PRN Reason: Interaction Checking Stop: 05/16/19 15:19 Last Admin: 05/12/19 15:21 Dose: 119 ml Documented by: [id number] Medical Decision Making Differential Diagnosis Differential diagnoses includes but is not limited to toxic, metabolic, infectious, traumatic, cardiac, neurologic, hematologic, psychiatric and inflammatory etiologies. Medical Records Attestation: I reviewed the patient's medical records. Home Medications Current Medication List: was personally reviewed by me Laboratory Data Attestation: I reviewed the patient's lab results. Result diagrams: 05/12/19 14:32 05/12/19 14:32 Lab Results 05/12/19 05/12/19 05/12/19 Range/Units 14:32 14:32 14:32 WBC 7.78 (4.8-10.8) K/uL RBC 4.13 L (4.2-5.4) M/uL Hgb 12.8 (12.0-16.0) g/dL Hct 36.8 L (37-47) % MCV 89.1 (80-100) fL MCH 31.0 (25-34) pg MCHC 34.8 (32-36) g/dL RDW Std Deviation 47.4 H (36.4-46.3) fL RDW Coeff of Diego 14.5 (11.5-14.5) % Plt Count 231 (130-400) K/uL MPV 9.4 (7.4-10.4) fL Immature Gran % (Auto) 0.3 % Neut % (Auto) 62.6 % Lymph % (Auto) 26.7 % [place] % (Auto) 7.2 % Eos % (Auto) 2.7 % Baso % (Auto) 0.5 % Immature Gran # (Auto) 0.02 (0.00-0.02) K/uL Neut # (Auto) 4.87 (1.4-6.5) K/uL Lymph # (Auto) 2.08 (1.2-3.4) K/uL [place] # (Auto) 0.56 (0.11-0.59) K/uL Eos # (Auto) 0.21 (0-0.5) K/uL Baso # (Auto) 0.04 (0-0.2) K/uL PT 9.8 (9.0-12.0) Seconds INR 1.0 (0.9-1.1) APTT 27.9 (21.0-31.0) Seconds PTT Ratio 1.0 VBG pH (7.36-7.41) VBG pCO2 (38-50) mmHg VBG pO2 mmHg VBG HCO3 mmol/L VBG O2 Saturation % VBG Base Excess mEq/L Barometric Pressure mm/Hg Sodium 140 (136-145) mmol/L Potassium 4.0 (3.5-5.1) mmol/L Chloride 105 (98-107) mmol/L Carbon Dioxide 28 (21-32) mmol/L Anion Gap 6.0 (3-11) BUN 7 (7-18) mg/dl Creatinine 1.05 (0.6-1.2) mg/dl Est Cr Clr Drug Dosing 66.2 ml/min Est GFR ( Amer) 62.8 Est GFR (Non-Af Amer) 54.1 BUN/Creatinine Ratio 7.0 L (10-20) Glucose 122 H (70-99) mg/dl Lactate (0.4-2.0) mmol/L Calcium 9.6 (8.5-10.1) mg/dl Magnesium 2.0 (1.8-2.4) mg/dl Total Bilirubin 0.3 (0.2-1) mg/dl AST 20 (15-37) U/L ALT 22 (12-78) U/L Alkaline Phosphatase 100 (45-117) U/L Ammonia (11-32) umol/L Total Creatine Kinase 90 (26-192) U/L Troponin I < 0.015 (0-0.045) ng/ml Total Protein 7.1 (6.4-8.2) gm/dl Albumin 3.2 L (3.4-5.0) gm/dl Globulin 3.9 (2.5-4.0) gm/dl Albumin/Globulin Ratio 0.8 L (0.9-2) TSH 2.820 (0.300-4.500) uIu/ml Urine Color Urine Appearance (Clear) Urine pH (4.5-7.5) Ur Specific [place] (1.000-1.030) Urine Protein (Negative) Urine Glucose (UA) (Negative) Urine Ketones (Negative) Urine Blood (Negative) Urine Nitrite (Negative) Urine Bilirubin (Negative) Urine Urobilinogen (Negative) Ur Leukocyte Esterase (Negative) Urine WBC (Auto) (0-5) /hpf Urine RBC (Auto) (0-4) /hpf U Hyaline Cast (Auto) (0-5) /lpf U Epithel Cells (Auto) (0-5) /lpf Urine Bacteria (Auto) (Negative) Salicylates (2.8-20) mg/dl Urine Opiates Screen (Neg) Ur Methadone, Qual (Neg) Acetaminophen (10-30) ug/ml Urine Barbiturates (Neg) Ur Phencyclidine (PCP) (Neg) U Amphetamin/Meth Scrn (Neg) MDMA (Ecstasy) Screen (Neg) U Benzodiazepines Scrn (Neg) Ur Cocaine Metabolite (Neg) U Marijuana (THC) Screen (Neg) Ethyl Alcohol mg/dL (0-3) mg/dl 05/12/19 05/12/19 05/12/19 Range/Units 14:32 14:32 14:32 WBC (4.8-10.8) K/uL RBC (4.2-5.4) M/uL Hgb (12.0-16.0) g/dL Hct (37-47) % MCV (80-100) fL MCH (25-34) pg MCHC (32-36) g/dL RDW Std Deviation (36.4-46.3) fL RDW Coeff of Diego (11.5-14.5) % Plt Count (130-400) K/uL MPV (7.4-10.4) fL Immature Gran % (Auto) % Neut % (Auto) % Lymph % (Auto) % [place] % (Auto) % Eos % (Auto) % Baso % (Auto) % Immature Gran # (Auto) (0.00-0.02) K/uL Neut # (Auto) (1.4-6.5) K/uL Lymph # (Auto) (1.2-3.4) K/uL [place] # (Auto) (0.11-0.59) K/uL Eos # (Auto) (0-0.5) K/uL Baso # (Auto) (0-0.2) K/uL PT (9.0-12.0) Seconds INR (0.9-1.1) APTT (21.0-31.0) Seconds PTT Ratio VBG pH (7.36-7.41) VBG pCO2 (38-50) mmHg VBG pO2 mmHg VBG HCO3 mmol/L VBG O2 Saturation % VBG Base Excess mEq/L Barometric Pressure mm/Hg Sodium (136-145) mmol/L Potassium (3.5-5.1) mmol/L Chloride (98-107) mmol/L Carbon Dioxide (21-32) mmol/L Anion Gap (3-11) BUN (7-18) mg/dl Creatinine (0.6-1.2) mg/dl Est Cr Clr Drug Dosing ml/min Est GFR ( Amer) Est GFR (Non-Af Amer) BUN/Creatinine Ratio (10-20) Glucose (70-99) mg/dl Lactate 1.5 (0.4-2.0) mmol/L Calcium (8.5-10.1) mg/dl Magnesium (1.8-2.4) mg/dl Total Bilirubin (0.2-1) mg/dl AST (15-37) U/L ALT (12-78) U/L Alkaline Phosphatase (45-117) U/L Ammonia (11-32) umol/L Total Creatine Kinase (26-192) U/L Troponin I (0-0.045) ng/ml Total Protein (6.4-8.2) gm/dl Albumin (3.4-5.0) gm/dl Globulin (2.5-4.0) gm/dl Albumin/Globulin Ratio (0.9-2) TSH (0.300-4.500) uIu/ml Urine Color Urine Appearance (Clear) Urine pH (4.5-7.5) Ur Specific [place] (1.000-1.030) Urine Protein (Negative) Urine Glucose (UA) (Negative) Urine Ketones (Negative) Urine Blood (Negative) Urine Nitrite (Negative) Urine Bilirubin (Negative) Urine Urobilinogen (Negative) Ur Leukocyte Esterase (Negative) Urine WBC (Auto) (0-5) /hpf Urine RBC (Auto) (0-4) /hpf U Hyaline Cast (Auto) (0-5) /lpf U Epithel Cells (Auto) (0-5) /lpf Urine Bacteria (Auto) (Negative) Salicylates < 1.7 L (2.8-20) mg/dl Urine Opiates Screen (Neg) Ur Methadone, Qual (Neg) Acetaminophen < 2 L (10-30) ug/ml Urine Barbiturates (Neg) Ur Phencyclidine (PCP) (Neg) U Amphetamin/Meth Scrn (Neg) MDMA (Ecstasy) Screen (Neg) U Benzodiazepines Scrn (Neg) Ur Cocaine Metabolite (Neg) U Marijuana (THC) Screen (Neg) Ethyl Alcohol mg/dL < 3.0 (0-3) mg/dl 05/12/19 05/12/19 05/12/19 Range/Units 14:32 14:32 14:33 WBC (4.8-10.8) K/uL RBC (4.2-5.4) M/uL Hgb (12.0-16.0) g/dL Hct (37-47) % MCV (80-100) fL MCH (25-34) pg MCHC (32-36) g/dL RDW Std Deviation (36.4-46.3) fL RDW Coeff of Diego (11.5-14.5) % Plt Count (130-400) K/uL MPV (7.4-10.4) fL Immature Gran % (Auto) % Neut % (Auto) % Lymph % (Auto) % [place] % (Auto) % Eos % (Auto) % Baso % (Auto) % Immature Gran # (Auto) (0.00-0.02) K/uL Neut # (Auto) (1.4-6.5) K/uL Lymph # (Auto) (1.2-3.4) K/uL [place] # (Auto) (0.11-0.59) K/uL Eos # (Auto) (0-0.5) K/uL Baso # (Auto) (0-0.2) K/uL PT (9.0-12.0) Seconds INR (0.9-1.1) APTT (21.0-31.0) Seconds PTT Ratio VBG pH 7.43 H (7.36-7.41) VBG pCO2 46 (38-50) mmHg VBG pO2 45 mmHg VBG HCO3 30 mmol/L VBG O2 Saturation 79.9 % VBG Base Excess 4.5 mEq/L Barometric Pressure 730.2 mm/Hg Sodium (136-145) mmol/L Potassium (3.5-5.1) mmol/L Chloride (98-107) mmol/L Carbon Dioxide (21-32) mmol/L Anion Gap (3-11) BUN (7-18) mg/dl Creatinine (0.6-1.2) mg/dl Est Cr Clr Drug Dosing ml/min Est GFR ( Amer) Est GFR (Non-Af Amer) BUN/Creatinine Ratio (10-20) Glucose (70-99) mg/dl Lactate (0.4-2.0) mmol/L Calcium (8.5-10.1) mg/dl Magnesium (1.8-2.4) mg/dl Total Bilirubin (0.2-1) mg/dl AST (15-37) U/L ALT (12-78) U/L Alkaline Phosphatase (45-117) U/L Ammonia 21.5 (11-32) umol/L Total Creatine Kinase (26-192) U/L Troponin I (0-0.045) ng/ml Total Protein (6.4-8.2) gm/dl Albumin (3.4-5.0) gm/dl Globulin (2.5-4.0) gm/dl Albumin/Globulin Ratio (0.9-2) TSH (0.300-4.500) uIu/ml Urine Color Urine Appearance (Clear) Urine pH (4.5-7.5) Ur Specific [place] (1.000-1.030) Urine Protein (Negative) Urine Glucose (UA) (Negative) Urine Ketones (Negative) Urine Blood (Negative) Urine Nitrite (Negative) Urine Bilirubin (Negative) Urine Urobilinogen (Negative) Ur Leukocyte Esterase (Negative) Urine WBC (Auto) (0-5) /hpf Urine RBC (Auto) (0-4) /hpf U Hyaline Cast (Auto) (0-5) /lpf U Epithel Cells (Auto) (0-5) /lpf Urine Bacteria (Auto) (Negative) Salicylates (2.8-20) mg/dl Urine Opiates Screen Neg (Neg) Ur Methadone, Qual Neg (Neg) Acetaminophen (10-30) ug/ml Urine Barbiturates Neg (Neg) Ur Phencyclidine (PCP) Neg (Neg) U Amphetamin/Meth Scrn Neg (Neg) MDMA (Ecstasy) Screen Neg (Neg) U Benzodiazepines Scrn Neg (Neg) Ur Cocaine Metabolite Neg (Neg) U Marijuana (THC) Screen Neg (Neg) Ethyl Alcohol mg/dL (0-3) mg/dl 05/12/19 Range/Units 14:33 WBC (4.8-10.8) K/uL RBC (4.2-5.4) M/uL Hgb (12.0-16.0) g/dL Hct (37-47) % MCV (80-100) fL MCH (25-34) pg MCHC (32-36) g/dL RDW Std Deviation (36.4-46.3) fL RDW Coeff of Diego (11.5-14.5) % Plt Count (130-400) K/uL MPV (7.4-10.4) fL Immature Gran % (Auto) % Neut % (Auto) % Lymph % (Auto) % [place] % (Auto) % Eos % (Auto) % Baso % (Auto) % Immature Gran # (Auto) (0.00-0.02) K/uL Neut # (Auto) (1.4-6.5) K/uL Lymph # (Auto) (1.2-3.4) K/uL [place] # (Auto) (0.11-0.59) K/uL Eos # (Auto) (0-0.5) K/uL Baso # (Auto) (0-0.2) K/uL PT (9.0-12.0) Seconds INR (0.9-1.1) APTT (21.0-31.0) Seconds PTT Ratio VBG pH (7.36-7.41) VBG pCO2 (38-50) mmHg VBG pO2 mmHg VBG HCO3 mmol/L VBG O2 Saturation % VBG Base Excess mEq/L Barometric Pressure mm/Hg Sodium (136-145) mmol/L Potassium (3.5-5.1) mmol/L Chloride (98-107) mmol/L Carbon Dioxide (21-32) mmol/L Anion Gap (3-11) BUN (7-18) mg/dl Creatinine (0.6-1.2) mg/dl Est Cr Clr Drug Dosing ml/min Est GFR ( Amer) Est GFR (Non-Af Amer) BUN/Creatinine Ratio (10-20) Glucose (70-99) mg/dl Lactate (0.4-2.0) mmol/L Calcium (8.5-10.1) mg/dl Magnesium (1.8-2.4) mg/dl Total Bilirubin (0.2-1) mg/dl AST (15-37) U/L ALT (12-78) U/L Alkaline Phosphatase (45-117) U/L Ammonia (11-32) umol/L Total Creatine Kinase (26-192) U/L Troponin I (0-0.045) ng/ml Total Protein (6.4-8.2) gm/dl Albumin (3.4-5.0) gm/dl Globulin (2.5-4.0) gm/dl Albumin/Globulin Ratio (0.9-2) TSH (0.300-4.500) uIu/ml Urine Color Yellow Urine Appearance Clear (Clear) Urine pH 5.0 (4.5-7.5) Ur Specific [place] 1.012 (1.000-1.030) Urine Protein Negative (Negative) Urine Glucose (UA) Negative (Negative) Urine Ketones Negative (Negative) Urine Blood Trace H (Negative) Urine Nitrite Negative (Negative) Urine Bilirubin Negative (Negative) Urine Urobilinogen Negative (Negative) Ur Leukocyte Esterase Negative (Negative) Urine WBC (Auto) 0 (0-5) /hpf Urine RBC (Auto) 0-4 (0-4) /hpf U Hyaline Cast (Auto) 0 (0-5) /lpf U Epithel Cells (Auto) 0-5 (0-5) /lpf Urine Bacteria (Auto) Negative (Negative) Salicylates (2.8-20) mg/dl Urine Opiates Screen (Neg) Ur Methadone, Qual (Neg) Acetaminophen (10-30) ug/ml Urine Barbiturates (Neg) Ur Phencyclidine (PCP) (Neg) U Amphetamin/Meth Scrn (Neg) MDMA (Ecstasy) Screen (Neg) U Benzodiazepines Scrn (Neg) Ur Cocaine Metabolite (Neg) U Marijuana (THC) Screen (Neg) Ethyl Alcohol mg/dL (0-3) mg/dl Imaging Data Radiologist's Impression: Radiology results as stated below per my review and the radiologist's interpretation: XR chest 1V portable HISTORY: weakness COMPARISON: Chest 04/25/2019. FINDINGS: There are low lung volumes. The cardiac silhouette remains mildly enlarged. No pleural effusions. No pneumothorax. No evidence for pulmonary edema. Right shoulder prosthesis is again noted. IMPRESSION: No significant change compared to the prior study. No acute process. Electronically signed by: Mervin Cobb M.D. 05/12/2019 2:37 PM ABDOMEN AND PELVIS CT WITH IV CONTRAST CT DOSE: 3631.90 mGy.cm HISTORY: Acute generalized abdominal pain altered TECHNIQUE: Multiaxial CT images of the abdomen and pelvis were performed following the IV administration of 119 mL of Optiray 320, A dose lowering technique was utilized adhering to the principles of ALARA. COMPARISON STUDY: CTA of the chest of same day, CT abdomen and pelvis 04/23/2019 FINDINGS: Heart is mildly enlarged. Bibasilar opacities redemonstrated as described on CTA chest of same day. There is no pneumatosis or pneumoperitoneum. There is suggestion of an ill-defined 2.1 cm low attenuating lesion of the superior spleen which is nonspecific. Spleen is otherwise unremarkable. Pancreas, adrenal glands, gallbladder and liver appear unremarkable. 4 mm hypodense lesion of the inferior pole left kidney is too small to characterize and may reflect a cyst. There are a few additional hypodense subcentimeter lesions of the right kidney which may also reflect renal cysts, however are too small to characterize. 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 No renal or ureteral calculi. Decompressed or bladder with Santos catheter in place. Trace free pelvic fluid. Hysterectomy. No adnexal mass lesions. Calcified plaque of the abdominal aorta without aneurysm. No adenopathy. Postoperative changes from prior gastric bypass. No bowel obstruction or bowel wall thickening. Terminal ileum is unremarkable. Appendix not diagnostically visualized. No secondary signs of acute appendicitis. No mesenteric inflamm ation. Soft tissues are unremarkable. Bones appear to be intact. Degenerative changes of the spine, pelvis and hips. IMPRESSION: 1. No bowel obstruction or bowel wall thickening. 2. Decompressed urinary bladder with Santos catheter in place. 3. Postoperative changes from prior gastric bypass. 4. Trace free pelvic fluid. 5. Prior hysterectomy. Electronically signed by: Axel Hutton M.D. 05/12/2019 3:[address] angio chest PE protocol HISTORY: 69 years-old Female with PE. Acute shortness of breath with chest pain TECHNIQUE: Multiple CTA images of the chest were obtained after the intravenous administration of 119 ml Optiray 320. Coronal and sagittal MIPS were obtained from the axial data set and were submitted for review. All measurements were obtained according to NASCET criteria. A dose lowering technique was utilized adhering to the principles of ALARA. COMPARISON: CT abdomen and pelvis of same day, CTA chest 04/23/2019 FINDINGS: CTA: Heart is mildly enlarged. No pericardial effusion. No thoracic aortic aneurysm. Patency of the imaged great vessels. The pulmonary arterial tree is opacified to level of the distal segmental branches and demonstrates no focal filling defects to suggest pulmonary thromboembolic disease. CT CHEST: Unremarkable thyroid. Mildly enlarged precarinal lymph node, 11 mm is unchanged. Mildly prominent subcarinal and right hilar lymph nodes are stable. No pneumothorax or pleural effusion. Status post removal of the previously described endotracheal tube. Decreased AP dimension of the trachea and bronchi suggest tracheobronchomalacia. There is mild bilateral bronchial wall thickening. Patchy bilateral groundglass and linear consolidative opacities are noted with areas of mosaic attenuation suggestive of air trapping. Mild intermixed areas of intralobular septal thickening. Pattern of disease appears similar to comparison study. Central airways appear patent. Mild wall thickening the distal esophagus. Prior gastric bypass. Soft tissues are within normal limits. Degenerative changes of the spine and left shoulder. Right shoulder arthroplasty. IMPRESSION: 1. Cardiomegaly without evidence of pulmonary thromboembolic disease. 2. 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 3. Bilateral groundglass opacities with air trapping are suggestive of probable atelectasis. Mild associated intralobular septal thickening of the upper lung zones may reflect a component of superimposed mild interstitial pulmonary edema. 4. No pleural effusion. The above report was generated using voice recognition software. It may contain grammatical, syntax or spelling errors. Electronically signed by: Axel Hutton M.D. 05/12/2019 3:[address] head/brain wo con CLINICAL HISTORY: 69 years-old Female with altered. Acutely altered mental status TECHNIQUE: Multiple axial CT images of the head were obtained without contrast. A dose lowering technique was utilized adhering to the principles of ALARA. COMPARISON: Head CT 04/25/2019 FINDINGS: No acute intracranial hemorrhage, midline shift, intracranial mass, hydrocephalus, territorial ischemia or abnormal extra-axial collection. Remote lacunar infarction about the right calvarium nucleus. Patchy white matter hypodensities suggest chronic microvascular ischemic disease. Senescent c alcifications of the lentiform nuclei. The calvarium is intact. The paranasal sinuses, mastoid air cells, and middle ear cavities are clear. IMPRESSION: No acute intracranial abnormality. The above report was generated using voice recognition software. It may contain grammatical, syntax or spelling errors. Electronically signed by: Axel Hutton M.D. 05/12/2019 3:32 PM ECG Data Attestation: I personally reviewed and interpreted this ECG as follows: Indication: altered mental status Rate (beats per minute): 107 Rhythm: sinus tachycardia Findings: + T-wave inversion (lateral); no PAC, no PVC and no ectopy Blood Pressure Blood Pressure Findings: Elevated blood pressure Blood Pressure Disposition: further management by hospitalist MDM Narrative The patient is a 69-year-old female who presented to the emergency department by EMS. The patient's history was significantly limited due to altered mental status. I do have a history of seeing this patient in the past with very similar complaints. Previously she was very altered and required intubation for airway management. This time the patient appears to be holding oxygen saturation was is acceptable with supplement oxygen. She reportedly had hypoxia and was complaining of chest pain although the patient's complaints and physical exam wax and wane at different times. I discussed the patient's laboratory and radiographic studies with the on-call [facility] hospitalist group. They have agreed to evaluate the patient in the emergency department for further management disposition. The patient has been admitted to their service in the past. They were familiar with her. The patient's family came to the emergency department to be with her but they did not offer much history. Impression & Plan Altered mental status, Chest pain, Hypoxia, Lethargy Discharge Plan Visit Data Chief Complaint: Unresponsive Stated Complaint: unresponsive ED Provider: Kennedy Esquivel Discharge Problem: Altered mental status, Chest pain, Hypoxia, Lethargy Patient Disposition: Being Evaluated by Hospitalist Forms Stand Alone Forms: My [facility] Prescriptions Prescriptions: No Action buspirone 5 mg tablet 5 mg PO DAILY RF: 0 atorvastatin 80 mg tablet 80 mg PO HS RF: 0 doxepin 25 mg capsule 25 mg PO HS RF: 0 clonazepam 1 mg tablet 1 mg PO BID RF: 0 gabapentin 300 mg capsule 300 mg PO TID RF: 0 ergocalciferol (vitamin D2) [Vitamin D2] 50,000 unit capsule 50,000 unit PO WK RF: 0 escitalopram oxalate 20 mg tablet 20 mg PO QAM RF: 0 Tradjenta 5 mg tablet 5 mg PO DAILY RF: 0 clonidine HCl 0.1 mg tablet 0.1 mg PO BID RF: 0 lisinopril 20 mg tablet 20 mg PO DAILY RF: 0 Combivent Respimat 20-100 mcg/actuation Mist 1 puff INHALATION QID RF: 0 Referrals Referrals: PCP,NO [Primary Care Provider] - Discharge Problem: Altered mental status Qualifiers: Altered mental status type: unspecified Qualified Code(s): R41.82 - Altered mental status, unspecified Chest pain Qualifiers: Chest pain type: unspecified Qualified Code(s): R07.9 - Chest pain, unspecified The scribe's documentation has been prepared under my direction and personally reviewed by me in its entirety. I confirm that the note above accurately reflects all work, treatment, procedures, and medical decision making performed by me.
--- NOTE | 2019-05-12 14:38 | XRay Report ---
XR chest 1V portable HISTORY: weakness COMPARISON: Chest 04/25/2019. FINDINGS: There are low lung volumes. The cardiac silhouette remains mildly enlarged. No pleural effu sions. No pneumothorax. No evidence for pulmonary edema. Right shoulder prosthesis is again noted. IMPRESSION: No significant change compared to the prior study. No acute process. Electronically signed by: Mervin Cobb M.D. 05/12/2019 2:37 PM
[2019-05-12 14:46] LABS: Basophils # (auto) 0.04 K/uL (0-0.2); Basophils % (auto) 0.5 %; Eosinophils # (auto) 0.21 K/uL (0-0.5); Eosinophils % (auto) 2.7 %; Hematocrit (blood only) 36.8 % (37-47); Hemoglobin 12.8 g/dL (12.0-16.0); Immature Granulocytes # (auto) 0.02 K/uL (0.00-0.02); Immature Granulocytes % (auto) 0.3 %; Lymphocytes # (auto) 2.08 K/uL (1.2-3.4); Lymphocytes % (auto) 26.7 %; Mean Corpuscular Hgb Conc 34.8 g/dL (32-36); Mean Corpuscular Volume 89.1 fL (80-100); Mean Platelet Volume 9.4 fL (7.4-10.4); Monocytes # (auto) 0.56 K/uL (0.11-0.59); Monocytes % (auto) 7.2 %; Neutrophils # (auto) 4.87 K/uL (1.4-6.5); Neutrophils % (auto) 62.6 %; Platelet Count 231 K/uL (130-400); RDW Coefficient of Variation 14.5 % (11.5-14.5); RDW Standard Deviation 47.4 fL (36.4-46.3); Red Blood Count 4.13 M/uL (4.2-5.4); White Blood Count 7.78 K/uL (4.8-10.8)
[2019-05-12 14:49] LABS: Base Excess VBG 4.5 mEq/L; Oxygen Saturation VBG 79.9 %; pH VBG 7.43 (7.36-7.41)
[2019-05-12 14:57] LABS: Partial Thromboplastin Time 27.9 Seconds (21.0-31.0); Prothrombin Time 9.8 Seconds (9.0-12.0)
[2019-05-12 15:06] LABS: Albumin Level 3.2 gm/dl (3.4-5.0); Blood Urea Nitrogen 7 mg/dl (7-18); Calcium 9.6 mg/dl (8.5-10.1); Carbon Dioxide 28 mmol/L (21-32); Chloride 105 mmol/L (98-107); Creatinine Clr Calc Pharmacy 66.2 ml/min; Est GFR (African American) 62.8; Est GFR (Non-African American) 54.1; Glucose 122 mg/dl (70-99); Sodium 140 mmol/L (136-145)
[2019-05-12 15:16] LABS: Alanine Aminotransferase 22 U/L (12-78); Albumin Globulin Ratio 0.8 (0.9-2); Alkaline Phosphatase 100 U/L (45-117); Aspartate Aminotransferase 20 U/L (15-37); Bilirubin,Total 0.3 mg/dl (0.2-1); Creatine Kinase 90 U/L (26-192); Globulin 3.9 gm/dl (2.5-4.0); Total Protein 7.1 gm/dl (6.4-8.2); Troponin I < 0.015 ng/ml (0-0.045)
[2019-05-12 15:19] LABS: Appearance Urine Clear (Clear); Bilirubin Urine Negative (Negative); Blood Urine Trace (Negative); Color Urine Yellow; Glucose Urine UA Negative (Negative); Ketones Urine Negative (Negative); Leukocyte Esterase Urine Negative (Negative); Nitrite Urine Negative (Negative); Protein Urine Negative (Negative); Specific Gravity Urine 1.012 (1.000-1.030); Urobilinogen Urine Negative (Negative)
[2019-05-12] MEDS ORDERED: OPTIRAY 320 125ml IV PRN (15:20)
[2019-05-12 15:27] LABS: Acetaminophen < 2 ug/ml (10-30); Salicylate < 1.7 mg/dl (2.8-20)
--- NOTE | 2019-05-12 15:33 | CT Scan Report ---
CT head/brain wo con CLINICAL HISTORY: 69 years-old Female with altered. Acutely altered mental status TECHNIQUE: Multiple axial CT images of the head were obtained without contrast. A dose lowering tech nique was utilized adhering to the principles of ALARA. COMPARISON: Head CT 04/25/2019 FINDINGS: No acute intracranial hemorrhage, midline shift, intracranial mass, hydrocephalus, territorial ischem ia or abnormal extra-axial collection. Remote lacunar infarction about the right calvarium nucleus. P atchy white matter hypodensities suggest chronic microvascular ischemic disease. Senescent calcificat ions of the lentiform nuclei. The calvarium is intact. The paranasal sinuses, mastoid air cells, and middle ear cavities are clear . IMPRESSION: No acute intracranial abnormality. The above report was generated using voice recognition software. It may contain grammatical, syntax o r spelling errors. Electronically signed by: Axel Hutton M.D. 05/12/2019 3:32 PM
[2019-05-12 15:40] LABS: Bacteria Urine Automated Negative (Negative); Cast Urine Automated 0 /lpf (0-5); Epithelial Cell Urine Auto 0-5 /lpf (0-5); RBC Urine Automated 0-4 /hpf (0-4); WBC Urine Automated 0 /hpf (0-5)
--- NOTE | 2019-05-12 15:41 | CT Scan Report ---
CT angio chest PE protocol HISTORY: 69 years-old Female with PE. Acute shortness of breath with chest pain TECHNIQUE: Multiple CTA images of the chest were obtained after the intravenous administration of 119 ml Optiray 320. Coronal and sagittal MIPS were obtained from the axial data set and were submitted for review. All measurements were obtained according to NASCET criteria. A dose lowering technique w as utilized adhering to the principles of ALARA. COMPARISON: CT abdomen and pelvis of same day, CTA chest 04/23/2019 FINDINGS: CTA: Heart is mildly enlarged. No pericardial effusion. No thoracic aortic aneurysm. Patency of the imaged great vessels. The pulmonary arterial tree is opacified to level of the distal segmental branches an d demonstrates no focal filling defects to suggest pulmonary thromboembolic disease. CT CHEST: Unremarkable thyroid. Mildly enlarged precarinal lymph node, 11 mm is unchanged. Mildly prominent sub carinal and right hilar lymph nodes are stable. No pneumothorax or pleural effusion. Status post alexis roopa of the previously described endotracheal tube. Decreased AP dimension of the trachea and bronchi suggest tracheobronchomalacia. There is mild bilateral bronchial wall thickening. Patchy bilateral gr oundglass and linear consolidative opacities are noted with areas of mosaic attenuation suggestive of air trapping. Mild intermixed areas of intralobular septal thickening. Pattern of disease appears si milar to comparison study. Central airways appear patent. Mild wall thickening the distal esophagus. Prior gastric bypass. Soft tissues are within normal limit s. Degenerative changes of the spine and left shoulder. Right shoulder arthroplasty. IMPRESSION: 1. Cardiomegaly without evidence of pulmonary thromboembolic disease. 2. 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 3. Bilateral groundglass opacities with air trapping are suggestive of probable atelectasis. Mild ass ociated intralobular septal thickening of the upper lung zones may reflect a component of superimpose d mild interstitial pulmonary edema. 4. No pleural effusion. The above report was generated using voice recognition software. It may contain grammatical, syntax o r spelling errors. Electronically signed by: Axel Hutton M.D. 05/12/2019 3:39 PM
--- NOTE | 2019-05-12 15:47 | CT Scan Report ---
ABDOMEN AND PELVIS CT WITH IV CONTRAST CT DOSE: 3631.90 mGy.cm HISTORY: Acute generalized abdominal pain altered TECHNIQUE: Multiaxial CT images of the abdomen and pelvis were performed following the IV administrat ion of 119 mL of Optiray 320, A dose lowering technique was utilized adhering to the principles of A SAMEER. COMPARISON STUDY: CTA of the chest of same day, CT abdomen and pelvis 04/23/2019 FINDINGS: Heart is mildly enlarged. Bibasilar opacities redemonstrated as described on CTA chest of same day. T here is no pneumatosis or pneumoperitoneum. There is suggestion of an ill-defined 2.1 cm low attenuat ing lesion of the superior spleen which is nonspecific. Spleen is otherwise unremarkable. Pancreas, a drenal glands, gallbladder and liver appear unremarkable. 4 mm hypodense lesion of the inferior pole left kidney is too small to characterize and may reflect a cyst. There are a few additional hypodense subcentimeter lesions of the right kidney which may also reflect renal cysts, however are too small to characterize. 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 No renal or ureteral calculi. Decompressed or bladder with Santos catheter in p lace. Trace free pelvic fluid. Hysterectomy. No adnexal mass lesions. Calcified plaque of the abdomin al aorta without aneurysm. No adenopathy. Postoperative changes from prior gastric bypass. No bowel obstruction or bowel wall thickening. Termi nal ileum is unremarkable. Appendix not diagnostically visualized. No secondary signs of acute append icitis. No mesenteric inflammation. Soft tissues are unremarkable. Bones appear to be intact. Degener ative changes of the spine, pelvis and hips. IMPRESSION: 1. No bowel obstruction or bowel wall thickening. 2. Decompressed urinary bladder with Santos catheter in place. 3. Postoperative changes from prior gastric bypass. 4. Trace free pelvic fluid. 5. Prior hysterectomy. Electronically signed by: Axel Hutton M.D. 05/12/2019 3:46 PM
[2019-05-12 15:55] LABS: Amphetamines+Metham, Urine Neg (Neg); Barbiturates, Urine Neg (Neg); Benzodiazepine, Urine Neg (Neg); Cocaine, Urine Neg (Neg); MDMA (Ecstacy), Urine Neg (Neg); Methadone, Urine Neg (Neg); Opiate, Urine Neg (Neg); Phencyclidine, Urine Neg (Neg)
[2019-05-12] MEDS ORDERED: ACETAMINOPHEN 65 ML IV PRN (17:30)
[2019-05-12] MEDS ORDERED: GLUCOSE 40% GEL 15 GM TUBE PO PRN (17:31)
[2019-05-12] MEDS ORDERED: GLUCAGON FOR INJ 1 MG VIAL SQ PRN (17:31)
[2019-05-12] MEDS ORDERED: DEXTROSE 50% 50 ML SYRINGE IV PRN (17:31)
[2019-05-12] MEDS ORDERED: CARBOHYDRATES FOR HYPOGLYCEMIA PO PRN (17:31)
[2019-05-12] MEDS ORDERED: GLUCOSE 10 TABS/TUBE PO PRN (17:31)
--- NOTE | 2019-05-12 18:04 | History & Physical Report ---
Date of Service May 12, 2019 Assessment & Plan (1) Syncopal episodes: Recurrent syncope -This is a 60 year old female who had previously presented to the hospital in April 2019 for altered mental status/unresponsiveness and was extensively worked up on that admission without finding singular acute cause of initial unresponsiveness with relatively quick improvement back to baseline with work up including negative lumbar puncture and negative EEG and was then discharged under the care of family members and at that time her headache symptoms resolved. as per history collaborated by patient's sister Ema [phone], patient did not follow up with primary care doctor or behavioral health doctor since the April 2019 discharge and that there were no changes recently made to her home medications and that patient takes the medications on her own -On 05/12/19 when she was working with physical therapy at residence shared with her sister Ema [phone] and as per her sister's history, the patient reported that she was feeling very tired. Patient then laid down and became less responsive and difficult to arouse but she did make movements to sternal rub when seen by EMS. The patient did not have a fall or injury, per EMS. EMS states the patient's blood sugar was at 220. When patient was seen by emergency room physician patient responded to loud verbal commands as well as painful stimuli but was not following commands appropriately. When seen by hospitalist further evaluation in the ED, the patient was able to respond to commands but speaking slowly. She complained of headache and neck pain. during exam by hospitalist no complaints of pain of the chest or abdomen. patient denied feeling shortness of breath. -initial troponins negative, trend troponins, place on observation under telemetry -obtain echocardiogram -head CT on this presentation is negative -neurology consult requested because this may be recurrent syncope with unclear etiology -EEG ordered however the EEG on previous hospitalization was normal -give gentle IV fluids headache and neck pain -these symptoms were seen on last hospitalization with normal lumbar puncture -will give IV acetaminophen as needed for now -given unresponsive episode at home, would avoid narcotic pain medications at th is time but patient was able to tolerate low dose hydromorphone when more awake/alert during previous hospitalization -possible that patient may be having complicated migraines HTN (hypertension): -continue patient's clonidine 1 mg BID -continue atorvastatin History of depression and Bipolar Disorder -Continue escitalopram -continue buspirone -hold doxepin and hold clonazepam Diabetes mellitus type II without exterminator termite current use of insulin -HbA1c 6.9 on recent hospitalization -hold home dose linagliptin while inpatient, place on sliding scale insulin and diabetic diet DVT ppx: SCDs Full Code sister Ema Theodore [phone] brother in law [phone] History of Present Illness This is a 60 year old female who had previously presented to the hospital in April 2019 for altered mental status/unresponsiveness and was extensively worked up on that admission without finding singular acute cause of initial unresponsiveness with relatively quick improvement back to baseline with work up including negative lumbar puncture and negative EEG and was then discharged under the care of family members and at that time her headache symptoms resolved. as per history collaborated by patient's sister Ema Armas [phone], patient did not follow up with primary care doctor or behavioral health doctor since the April 2019 discharge and that there were no changes recently made to her home medications and that patient takes the medications on her own On 05/12/19 when she was working with physical therapy at residence shared with her sister Ema Theodore [phone] and as per her sister's history, the patient reported that she was feeling very tired. Patient then laid down and became less responsive and difficult to arouse but she did make movements to sternal rub when seen by EMS. The patient did not have a fall or injury, per EMS. EMS states the patient's blood sugar was at 220. When patient was seen by emergency room physician patient responded to loud verbal commands as well as painful stimuli but was not following commands appropriately. When seen by hospitalist further evaluation in the ED, the patient was able to respond to commands but speaking slowly. She complained of headache and neck pain. during exam by hospitalist no complaints of pain of the chest or abdomen. patient denied feeling shortness of breath. Primary Care Provider: NO PCP Allergies Allergy/AdvReac Type Severity Reaction Status Date / Time latex Allergy Unknown rash Verified 01/23/12 11:02 Penicillins Allergy Unknown Verified 04/23/19 21:03 Home Medications Home Medications Medication Instructions Recorded Confirmed Type Tradjenta 5 mg PO DAILY 04/23/19 05/12/19 History atorvastatin 80 mg PO HS 04/23/19 05/12/19 History buspirone 5 mg PO DAILY 04/23/19 05/12/19 History clonazepam 1 mg PO BID 04/23/19 05/12/19 History doxepin 25 mg PO HS 04/23/19 05/12/19 History ergocalciferol (vitamin D2) 50,000 unit PO WK 04/23/19 05/12/19 History [Vitamin D2] escitalopram oxalate 20 mg PO QAM 04/23/19 05/12/19 History gabapentin 300 mg PO TID 04/23/19 05/12/19 History Combivent Respimat 1 puff INHALATION QID 04/25/19 05/12/19 History clonidine HCl 0.1 mg PO BID 04/25/19 05/12/19 History lisinopril 20 mg PO DAILY 04/25/19 05/12/19 History Past Med/Surg History Medical History Dyslipidemia (Chronic) RLS (restless legs syndrome) (Chronic) HTN (hypertension) (Chronic) Obesity (Chronic) CKD (chronic kidney disease), stage II (Chronic) Depression (Chronic) Bipolar disorder (Chronic) Diabetes mellitus, type II (Chronic) Stomach problems Emphysema lung Diabetes HTN (hypertension) Heart disease Family History Other Cancer Diabetes Heart disease Hypertension Social History Preferred Language: Kosovan Communication Ability: Effective Hide Puller Required: No Beliefs That Will Affect Care: None Current Living Situation: Alone Feels Safe at Home: Yes Smoking Status: Never smoker Hx Alcohol Use: No Hx Substance Use: No Review of Systems Review of Systems: All systems reviewed & are unremarkable except as noted in HPI & below other than unresponsive and syncopal symptoms, headache, and neck pain, the patoent and her family members did not report other positive symptoms Physical Exam Constitutional: + obese somewhat tired in speech and movements but responds to verbal commands Eyes: PERRL, conjunctivae normal, anicteric sclerae ENMT: external ear and nose normal, oropharynx normal Neck: normal visual inspection Respiratory: normal respiratory effort, lungs clear to auscultation Cardiovascular: RRR, no murmur, no edema Gastrointestinal (Abdomen): normal bowel sounds, soft, nontender, no hepatosplenomegaly Musculoskeletal: Head/Neck/Chest: normocephalic and head atraumatic Neurologic: moves all extremities Psychiatric: Orientation: cooperative Results & Data Vital Signs (Past 12 Hours) Vital Signs Temp Pulse Pulse Resp BP BP Pulse Ox 05/12/19 15:34 88 12 157/98 H 98 05/12/19 15:33 83 24 05/12/19 15:01 94 H 13 121/85 97 05/12/19 15:00 94 H 8 L 97 05/12/19 14:46 97 H 10 L 134/83 98 05/12/19 14:33 97 H 14 140/87 97 05/12/19 14:30 94 H 13 96 05/12/19 14:28 91 H 10 L 121/85 96 05/12/19 14:15 106 H 27 H 121/95 97 05/12/19 14:10 102 H 17 134/99 96 05/12/19 14:08 98 05/12/19 14:06 36.9 C 106 H 12 134/99 100 Code Status & VTE Plan VTE Prophylaxis Plan VTE Prophylaxis will be ordered: Yes
[2019-05-12] MEDS ORDERED: ACETAMINOPHEN 65 ML IV STA (18:14)
[2019-05-12] MEDS ORDERED: ALBUT/IPRATROP 3MG/0.5MG NEB 3 ML VIAL NEB SCH (19:00)
[2019-05-12] MEDS: SODIUM CHLORIDE 0.9% 1000ML 1,000 ML IV SCH (19:04)
[2019-05-12] MEDS: ATORVASTATIN 40 MG TAB PO SCH (20:52)
[2019-05-12] MEDS: cloNIDine HCl 0.1 MG TAB PO SCH (20:54)
[2019-05-12] MEDS: INSULIN ASPART 100 UNITS/ML 3 ML PEN SC SCH (20:56)
[2019-05-12] MEDS: ALBUT/IPRATROP 3MG/0.5MG NEB 3 ML VIAL NEB PRN (20:58)
[2019-05-12] MEDS ORDERED: GABAPENTIN 300 MG CAP PO STA (21:20)
[2019-05-12] MEDS ORDERED: clonazePAM 0.5 MG TAB PO STA (21:20)
[2019-05-13 06:54] LABS: Basophils # (auto) 0.05 K/uL (0-0.2); Basophils % (auto) 0.8 %; Eosinophils # (auto) 0.27 K/uL (0-0.5); Eosinophils % (auto) 4.1 %; Hematocrit (blood only) 34.7 % (37-47); Hemoglobin 11.7 g/dL (12.0-16.0); Immature Granulocytes # (auto) 0.02 K/uL (0.00-0.02); Immature Granulocytes % (auto) 0.3 %; Lymphocytes # (auto) 1.98 K/uL (1.2-3.4); Lymphocytes % (auto) 30.4 %; Mean Corpuscular Hgb Conc 33.7 g/dL (32-36); Mean Corpuscular Volume 89.7 fL (80-100); Mean Platelet Volume 9.3 fL (7.4-10.4); Monocytes # (auto) 0.52 K/uL (0.11-0.59); Neutrophils # (auto) 3.67 K/uL (1.4-6.5); Neutrophils % (auto) 56.4 %; Platelet Count 212 K/uL (130-400); RDW Standard Deviation 48.9 fL (36.4-46.3); Red Blood Count 3.87 M/uL (4.2-5.4); White Blood Count 6.51 K/uL (4.8-10.8)
[2019-05-13 07:26] LABS: Alanine Aminotransferase 21 U/L (12-78); Albumin Level 2.8 gm/dl (3.4-5.0); Aspartate Aminotransferase 17 U/L (15-37); BUN Creatinine Ratio 5.7 (10-20); Blood Urea Nitrogen 6 mg/dl (7-18); Calcium 8.5 mg/dl (8.5-10.1); Carbon Dioxide 30 mmol/L (21-32); Chloride 107 mmol/L (98-107); Creatinine Clr Calc Pharmacy 67.2 ml/min; Est GFR (African American) 64.2; Est GFR (Non-African American) 55.4; Glucose 110 mg/dl (70-99); Potassium 4.2 mmol/L (3.5-5.1); Sodium 142 mmol/L (136-145)
[2019-05-13 07:31] LABS: Albumin Globulin Ratio 0.8 (0.9-2); Alkaline Phosphatase 78 U/L (45-117); Bilirubin,Total 0.3 mg/dl (0.2-1); Globulin 3.6 gm/dl (2.5-4.0); Total Protein 6.4 gm/dl (6.4-8.2); Troponin I < 0.015 ng/ml (0-0.045)
[2019-05-13] MEDS: ALBUT/IPRATROP 3MG/0.5MG NEB 3 ML VIAL NEB PRN (07:57)
[2019-05-13] MEDS ORDERED: PERFLUTREN LIPID MICROSPHERE (DEFINITY) IV ONE (08:18)
[2019-05-13] MEDS: ESCITALOPRAM OXALATE 20 MG TAB PO SCH (09:07)
[2019-05-13] MEDS: INSULIN ASPART 100 UNITS/ML 3 ML PEN SC SCH ×4 (09:08→21:16)
[2019-05-13] MEDS: cloNIDine HCl 0.1 MG TAB PO SCH ×2 (09:12→21:25)
[2019-05-13 10:32] LABS: iSTAT Blood Urea Nitrogen 13 mg/dl (7-18); iSTAT Carbon Dioxide 28 mEq/l (24-31); iSTAT Glucose 109 mg/dl (70-99); iSTAT Hematocrit 46 % (37-47); iSTAT Hemoglobin 15.6 g/dl (12.0-16.0); iSTAT Ionized Calcium 1.16 mmol/l (1.12-1.32); iSTAT Sodium 138 mEq/L (135-144)
[2019-05-13] MEDS: SODIUM CHLORIDE 0.9% 1000ML 1,000 ML IV SCH (10:41)
--- NOTE | 2019-05-13 12:19 | Electroencephalogram ---
EEG Procedure Note Date of Service May 13, 2019 Start / End Times Start Time: 09:32 End Time: 09:[address] Larry Dinh History A 69 year old woman with recurrent syncope. EEG performed for evaluation of epileptiform activity. Home Medication List Home Medications Medication Instructions Recorded Confirmed Type Tradjenta 5 mg PO DAILY 04/23/19 05/12/19 History atorvastatin 80 mg PO HS 04/23/19 05/12/19 History buspirone 5 mg PO DAILY 04/23/19 05/12/19 History clonazepam 1 mg PO BID 04/23/19 05/12/19 History doxepin 25 mg PO HS 04/23/19 05/12/19 History ergocalciferol (vitamin D2) 50,000 unit PO WK 04/23/19 05/12/19 History [Vitamin D2] escitalopram oxalate 20 mg PO QAM 04/23/19 05/12/19 History gabapentin 300 mg PO TID 04/23/19 05/12/19 History Combivent Respimat 1 puff INHALATION QID 04/25/19 05/12/19 History clonidine HCl 0.1 mg PO BID 04/25/19 05/12/19 History lisinopril 20 mg PO DAILY 04/25/19 05/12/19 History Inpatient Medication List Albuterol (Duoneb) 3 ml NEB Q6R PRN PRN Reason: Shortness Of Breath Or Wheezing Stop: 06/11/19 18:59 Last Admin: 05/13/19 07:57 Dose: 3 ml Documented by: [id number] Admin: 05/12/19 20:58 Dose: 3 ml Documented by: [id number] Atorvastatin Calcium (Lipitor) 80 mg PO [facility] Stop: 06/11/19 20:59 Last Admin: 05/12/19 20:52 Dose: 80 mg Documented by: [id number] Buspirone HCl (Buspar) 5 mg PO DAILY [facility] Stop: 06/12/19 08:59 Last Admin: 05/13/19 09:07 Dose: 5 mg Documented by: [id number] Clonidine HCl (Catapres) 0.1 mg PO BID [facility] Stop: 06/11/19 20:59 Last Admin: 05/13/19 09:12 Dose: 0.1 mg Documented by: [id number] Admin: 05/12/19 20:54 Dose: 0.1 mg Documented by: [id number] Escitalopram Oxalate (Lexapro Tab) 20 mg PO QAM DAA Stop: 06/12/19 08:59 Last Admin: 05/13/19 09:07 Dose: 20 mg Documented by: [id number] Sodium Chloride (Nss 1000ml) 1,000 mls @ 60 mls/hr IV .[id number] ADA Stop: 06/11/19 18:59 Last Admin: 05/13/19 10:41 Dose: 60 mls/hr Documented by: [id number] Infusion: 05/13/19 10:41 Dose: 60 mls/hr Documented by: [id number] Admin: 05/12/19 19:04 Dose: 60 mls/hr Documented by: [id number] Insulin Aspart (Novolog Flexpen) 0 units SC ACHS [facility] Stop: 06/11/19 20:59 Last Admin: 05/13/19 09:08 Dose: Not Given Documented by: [id number] Cosigned by: [id number] Admin: 05/12/19 20:56 Dose: Not Given Documented by: [id number] Cosigned by: [id number] Ioversol (Optiray 320 125ml) 119 ml IV ONCE PRN PRN Reason: Interaction Checking Stop: 05/16/19 15:19 Last Admin: 05/12/19 15:21 Dose: 119 ml Documented by: [id number] Discontinued Medications Albuterol (Duoneb) 3 ml NEB Q6R [facility] Stop: 06/11/19 18:59 Last Admin: 05/12/19 19:16 Dose: Not Given Documented by: [id number] Clonazepam (Klonopin) 0.5 mg PO NOW STA Stop: 05/12/19 21:21 Last Admin: 05/12/19 21:54 Dose: 0.5 mg Documented by: [id number] Gabapentin (Neurontin) 300 mg PO NOW STA Stop: 05/12/19 21:21 Last Admin: 05/12/19 21:54 Dose: 300 mg Documented by: [id number] Acetaminophen (Ofirmev) 65 mls @ 200 mls/hr IV NOW STA Stop: 05/12/19 18:33 Last Infusion: 05/12/19 19:50 Dose: 200 mls/hr Documented by: [id number] Admin: 05/12/19 19:05 Dose: 200 mls/hr Documented by: [id number] Perflutren Lipid Microsphere (Definity) 2 ml IV ONCE ONE Stop: 05/13/19 08:19 Last Admin: 05/13/19 08:20 Dose: 2 ml Documented by: [id number] Description This is a 21 electrode EEG with a single channel dedicated to limited EKG. The electrodes were placed in accordance with the International 10-20 system. REPORT: At the onset of the EEG, the patient is awake. The background activity consist of 8.5 Hz, persistent, posteriorly dominant, moderate amplitude, symmetric and rhythmic activity that is reactive to eye opening. Anteriorly, it consist of a mixture of low voltage indeterminate activity and 15-25 Hz, persistent, low amplitude, symmetric and rhythmic activity. Stepwise intermittent photic stimulation does not induce any abnormalities. Drowsiness is characterized by low amplitude mixed frequency activity, roving eye movements, and decreased eye blinking and muscle artifact. IMPRESSION: This is a normal awake and drowsy EEG. There is no evidence of epileptiform activity.
--- NOTE | 2019-05-13 14:19 | Neurology Consultation ---
Date of Consultation May 13, 2019 Assessment & Plan (1) Syncopal episodes: 1. MRI brain/ carotid doppler , CT cspine, LP (no opening pressure) - completed during admission in April 2019 2. TTE- no ASD 3. CT head- no acute findings 4. EEG- no seizure focus 5. no infectious process noted 6. needs to follow up with PCP and psychiatry as out patient along with ophthalmology exam as out patient evaluate visual field cuts 7. orthostatic blood pressures- needed for report of dizziness prior to event Supervising Physician Co-Signing Physician Notes Patient was seen and examined. No collateral at bedside. Patient awake and alert. She appears restless (akathisia). Patient reports no memory from yesterdays events. She is also not sure of her medications. Her UDS was Negative for benzo'diazepines yet this is list as a scheduled medication. I did review her EEG this morning and this was Normal with no evidence of epileptiform discharges. She also had another routine EEG a few weeks ago which was also normal. She has had two episodes of reported encephalopathy. History is devoid of features to suggest epileptic seizure. Infectious work up on last admission was also Negative as well as MRI imaging. I suspect her transient encephalopathy is likey multifactorial secondary to untreated JULIO C and polypharmacy. Recommend de-escalating her medication list. I believe the combination of Klonopin, Gabapentin, and clonidine is high risk for delirium. Patient also has untreated JULIO C which may also be contributing. Patient with sleep apnea are often very sleepy during the day and may doze off or take daytime naps. Recommend sleep medicine referral as outpatient. Please call me with any further questions or concerns. History of Present Illness Reason for Consultation: Encephalopathy Requesting Physician: Larry Dinh MD Attending Physician: Larry Dinh MD History of Present Illness Chante is a 69 year old female with PMH lethargy, HLD, CKD II, depression, RLS, bipolar disorder, DM II, emphysema lung on inhalers. She was seen at [facility] April 2019 for altered mental status/unresponsiveness and was extensively worked up on that admission without finding singular acute cause of initial unresponsiveness with relatively quick improvement back to baseline with work up including negative lumbar puncture and negative EEG and was then discharged under the care of family members and at that time her headache symptoms resolved. She did not follow up with PCP or behavioral health doctor since the April 2019 discharge and that there were no changes recently made to her home medications and that patient takes the medications on her own. On 05/12/19 when she was working with physical therapy at residence shared with her sister Ema she was feeling very tired. She laid down and became less responsive and difficult to arouse but she did make movements to sternal rub when seen by EMS. EMS states the patient's blood sugar was at 220. In the ED she was responding to loud verbal commands as well as painful stimuli but was not following commands appropriately. She was also complaining of headache and neck pain. during exam by hospitalist no complaints of pain of the chest or abdomen. She states she only remembers waking in the room at the hospital. She does remember working with PT but nothing after she started feeling dizzy at home until she was in her room at the hospital. She states she never had seizures as a child or febrile seizures. There is no family history of seizure she is aware of. denies CP, SOB, abdominal pain, one sided weakness, numbness tingling, N, V. morning jerks, staring spells. Allergies Allergy/AdvReac Type Severity Reaction Status Date / Time latex Allergy Unknown rash Verified 01/23/12 11:02 Penicillins Allergy Unknown Verified 04/23/19 21:03 Home Medications Home Medications Medication Instructions Recorded Confirmed Type Tradjenta 5 mg PO DAILY 04/23/19 05/12/19 History atorvastatin 80 mg PO HS 04/23/19 05/12/19 History buspirone 5 mg PO DAILY 04/23/19 05/12/19 History clonazepam 1 mg PO BID 04/23/19 05/12/19 History doxepin 25 mg PO HS 04/23/19 05/12/19 History ergocalciferol (vitamin D2) 50,000 unit PO WK 04/23/19 05/12/19 History [Vitamin D2] escitalopram oxalate 20 mg PO QAM 04/23/19 05/12/19 History gabapentin 300 mg PO TID 04/23/19 05/12/19 History Combivent Respimat 1 puff INHALATION QID 04/25/19 05/12/19 History clonidine HCl 0.1 mg PO BID 04/25/19 05/12/19 History lisinopril 20 mg PO DAILY 08/18/19 09/04/19 History Patient History Medical History Dyslipidemia (Chronic) RLS (restless legs syndrome) (Chronic) HTN (hypertension) (Chronic) Obesity (Chronic) CKD (chronic kidney disease), stage II (Chronic) Depression (Chronic) Bipolar disorder (Chronic) Diabetes mellitus, type II (Chronic) Stomach problems Emphysema lung Diabetes HTN (hypertension) Heart disease Family History Other Cancer Diabetes Heart disease Hypertension Social History Preferred Language: Mohawk Communication Ability: Effective Metal Baler Required: No Beliefs That Will Affect Care: None Current Living Situation: Family Other Information That Helps Us Care for You: No Feels Safe at Home: Yes Safety Concerns: Feels Safe At This Time Smoking Status: Never smoker Do You Dip or Chew Tobacco: No ; Hx Alcohol Use: No Hx Substance Use: No Physical Exam Physical Exam: Physical Exam: Constitutional: appearance over nourished Ears, Nose, Mouth and Throat: mucous membranes moist, no injection and skin normal, eyes normal Cardiovascular: normal S-1 and S-2 and regular rate and rhythm Respiratory: inspiratory wheezing with inspiration Musculoskeletal: no peripheral edema and good distal pulses Skin: no stigmata of neurocutaneous disease noted and normal and intact Eyes: extraocular muscles intact (EOMI) and pupils equal, round and reactive to light (PERRL), field cut bilaterally right upper laterally and left upper laterally on gross exam NEUROLOGIC EXAMINATION: Mental status: Alert and interactive Oriented to full date and location Oriented to person Speech fluent with no evidence of aphasia Cranial Nerves smile eye brow raise symmetric Reflexes: Deep tendon reflexes were symmetrical and graded 2/5 Sensory: light or cool touch Coordination: finger to nose slight bi pass Gait/Stance: Posture normal. sitting up in bed. Motor: Negative for pronator drift of out stretched arms with eyes closed. Strength: biceps triceps hand ultrasonic solderer 5/5 bilaterally, hip flex right 0/5, left 3/5 Results & Data Vital Signs (Past 12 Hours) Vital Signs Temp Pulse Pulse Resp BP BP Pulse Ox 05/13/19 11:42 36.8 C 94 H 18 143/84 H 94 05/13/19 08:00 77 05/13/19 07:57 75 18 98 05/13/19 07:25 36.7 C 77 18 136/84 93 05/13/19 03:11 36.8 C 79 20 107/74 93 Laboratory Results Abnormal lab results 05/12/19 05/12/19 05/12/19 Range/Units 14:32 14:32 14:32 RBC 4.13 L (4.2-5.4) M/uL Hgb (12.0-16.0) g/dL Hct 36.8 L (37-47) % RDW Std Deviation 47.4 H (36.4-46.3) fL RDW Coeff of Diego (11.5-14.5) % VBG pH (7.36-7.41) BUN (7-18) mg/dl BUN/Creatinine Ratio 7.0 L (10-20) Glucose 122 H (70-99) mg/dl POC Glucose (70-99) POC Glucose (other) (70-99) mg/dl Albumin 3.2 L (3.4-5.0) gm/dl Albumin/Globulin Ratio 0.8 L (0.9-2) Urine Blood (Negative) Salicylates < 1.7 L (2.8-20) mg/dl Acetaminophen < 2 L (10-30) ug/ml 05/12/19 05/12/19 05/12/19 Range/Units 14:32 14:33 15:00 RBC (4.2-5.4) M/uL Hgb (12.0-16.0) g/dL Hct (37-47) % RDW Std Deviation (36.4-46.3) fL RDW Coeff of Diego (11.5-14.5) % VBG pH 7.43 H (7.36-7.41) BUN (7-18) mg/dl BUN/Creatinine Ratio (10-20) Glucose (70-99) mg/dl POC Glucose (70-99) POC Glucose (other) 109 H (70-99) mg/dl Albumin (3.4-5.0) gm/dl Albumin/Globulin Ratio (0.9-2) Urine Blood Trace H (Negative) Salicylates (2.8-20) mg/dl Acetaminophen (10-30) ug/ml 05/12/19 05/13/19 05/13/19 Range/Units 20:53 06:45 06:45 RBC 3.87 L (4.2-5.4) M/uL Hgb 11.7 L (12.0-16.0) g/dL Hct 34.7 L (37-47) % RDW Std Deviation 48.9 H (36.4-46.3) fL RDW Coeff of Diego 15.0 H (11.5-14.5) % VBG pH (7.36-7.41) BUN 6 L (7-18) mg/dl BUN/Creatinine Ratio 5.7 L (10-20) Glucose 110 H (70-99) mg/dl POC Glucose 130 H (70-99) POC Glucose (other) (70-99) mg/dl Albumin 2.8 L (3.4-5.0) gm/dl Albumin/Globulin Ratio 0.8 L (0.9-2) Urine Blood (Negative) Salicylates (2.8-20) mg/dl Acetaminophen (10-30) ug/ml 05/13/19 05/13/19 Range/Units 07:37 11:31 RBC (4.2-5.4) M/uL Hgb (12.0-16.0) g/dL Hct (37-47) % RDW Std Deviation (36.4-46.3) fL RDW Coeff of Diego (11.5-14.5) % VBG pH (7.36-7.41) BUN (7-18) mg/dl BUN/Creatinine Ratio (10-20) Glucose (70-99) mg/dl POC Glucose 110 H 114 H (70-99) POC Glucose (other) (70-99) mg/dl Albumin (3.4-5.0) gm/dl Albumin/Globulin Ratio (0.9-2) Urine Blood (Negative) Salicylates (2.8-20) mg/dl Acetaminophen (10-30) ug/ml Diagnostic Findings CT abdomen pelvis-No bowel obstruction or bowel wall thickening. Decompressed urinary bladder with Santos catheter in place. Postoperative changes from prior gastric bypass. Trace free pelvic fluid. Prior hysterectomy. CTA chest- Cardiomegaly without evidence of pulmonary thromboembolic disease. 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 Bilateral groundglass opacities with air trapping are suggestive of probable atelectasis. Mild associated intralobular septal thickening of the upper lung zones may reflect a component of superimposed mild interstitial pulmonary edema. No pleural effusion. CT head-No acute intracranial abnormality.
--- NOTE | 2019-05-13 17:14 | Hospitalist Progress Note ---
Date of Service May 13, 2019 Assessment & Plan (1) Syncopal episodes: Recurrent syncope -This is a 60 year old female who had previously presented to the hospital in April 2019 for altered mental status/unresponsiveness and was extensively worked up on that admission without finding singular acute cause of initial unresponsiveness with relatively quick improvement back to baseline with work up including negative lumbar puncture and negative EEG and was then discharged under the care of family members and at that time her headache symptoms resolved. as per history collaborated by patient's sister Ema [phone], patient did not follow up with primary care doctor or behavioral health doctor since the April 2019 discharge and that there were no changes recently made to her home medications and that patient takes the medications on her own -On 05/12/19 when she was working with physical therapy at residence shared with her sister Ema [phone] and as per her sister's history, the patient reported that she was feeling very tired. Patient then laid down and became less responsive and difficult to arouse but she did make movements to sternal rub when seen by EMS. The patient did not have a fall or injury, per EMS. EMS states the patient's blood sugar was at 220. When patient was seen by emergency room physician patient responded to loud verbal commands as well as painful stimuli but was not following commands appropriately. When seen by hospitalist further evaluation in the ED, the patient was able to respond to commands but speaking slowly. She complained of headache and neck pain. during exam by hospitalist no complaints of pain of the chest or abdomen. patient denied feeling shortness of breath. -head CT on this presentation is negative -troponins are negative -echocardiogram with normal ejection fraction; echocardiogram does show trace, loculated anterior pericardial effusion however this should be non-contributary to patient's syncope -normal EEG on 05/13/19 -normal orthostatics -as per neurology evaluation: suspect her transient encephalopathy is likely multifactorial secondary to untreated JULIO C and polypharmacy (combination of Klonopin, Gabapentin, and clonidine is high risk for delirium), possible untreated obstructive sleep apnea also contributory -continue monitoring in hospital for now and awaiting placement to inpatient physical rehabilitation facility based on updated PT/OT assessments History of depression and Bipolar Disorder and restless leg syndrome -Continue escitalopram -continue buspirone -continue doxepin -hold clonazepam and hold home dose gabapentin Obstructive sleep apnea -as per patient she had sleep studies in the past but then never received CPAP machine -will start trial of CPAP at night while in the hospital -patient will need follow up with outpatient providers for any updated sleep studies and CPAP machine Pericardial effusion -trace, loculated anterior pericardial effusion -chest discomfort could be pleuritic pain from pericardial effusion -conservative management with Ibuprofen 200 mg q8 hours headache and neck pain -these symptoms were seen on last hospitalization with normal lumbar puncture -possible that patient may have migraine headache -pain appears controlled at this time -acetaminophen prn as needed HTN (hypertension): -continue patient's clonidine 1 mg BID -continue atorvastatin Diabetes mellitus type II without terminologist current use of insulin -HbA1c 6.9 on recent hospitalization -hold home dose linagliptin while inpatient, place on sliding scale insulin and diabetic diet PT/OT evaluations suggest that based on patient's ambulation, she would benefit from inpatient rehabilitation stay after hospital stay. Patient agrees to go to [facility] based on PT/OT assessments and these plans were discussed with case management DVT ppx: SCDs Full Code sister Ema [phone] brother in law [phone] Subjective patient's chest discomforts and headache and neck discomforts from yesterday appears improved. she is breathing on room air and interacts appropriately in conversations. we discussed at length about previous hospitalization and her health since the last hospital stay and current hospitalization. a concern at this time is that patient's ambulation appears a little worse than previous hospitalization during which patient was recommended to go to a physical rehabilitation center but she declined. patient also agrees to try CPAP in the hospital overnight. no orthostatic hypotension no dizziness currently. no shortness of breath. no palpitations. no abdominal pain. no vomiting. Physical Exam Constitutional: + obese Eyes: PERRL, conjunctivae normal, anicteric sclerae ENMT: external ear and nose normal, oropharynx normal Neck: normal visual inspection Respiratory: normal respiratory effort, lungs clear to auscultation Cardiovascular: RRR, no murmur, no edema Gastrointestinal (Abdomen): normal bowel sounds, soft, nontender, no hepatosplenomegaly Musculoskeletal: Head/Neck/Chest: normocephalic and head atraumatic Neurologic: moves all extremities Psychiatric: Orientation: cooperative Results & Data Vital Signs (Past 12 Hours) Vital Signs Temp Pulse Pulse Resp BP BP Pulse Ox 05/13/19 17:08 77 20 158/90 H 97 05/13/19 15:12 89 05/13/19 15:07 36.9 C 89 20 160/88 H 95 05/13/19 11:42 36.8 C 94 H 18 143/84 H 94 05/13/19 08:00 77 05/13/19 07:57 75 18 98 05/13/19 07:25 36.7 C 77 18 136/84 93
[2019-05-13] MEDS ORDERED: IBUPROFEN 200 MG/10 ML UDC PO ONE (17:45)
[2019-05-13] MEDS ORDERED: ACETAMINOPHEN 325 MG TAB PO PRN (17:51)
[2019-05-13] MEDS ORDERED: DOXEPIN HCL 25 MG CAPSULE PO SCH (21:00)
[2019-05-13] MEDS: ATORVASTATIN 40 MG TAB PO SCH (21:20)
[2019-05-13] MEDS: IBUPROFEN 200 MG/10 ML UDC PO SCH (21:20)
[2019-05-13] MEDS ORDERED: clonazePAM 1 MG TAB PO STA (23:48)
[2019-05-13] MEDS ORDERED: GABAPENTIN 300 MG CAP PO STA (23:48)
[2019-05-14] MEDS: IBUPROFEN 200 MG/10 ML UDC PO SCH ×2 (06:12→14:13)
[2019-05-14] MEDS: INSULIN ASPART 100 UNITS/ML 3 ML PEN SC SCH ×2 (07:49→12:07)
[2019-05-14] MEDS: ESCITALOPRAM OXALATE 20 MG TAB PO SCH (08:32)
[2019-05-14] MEDS: cloNIDine HCl 0.1 MG TAB PO SCH (08:32)
[2019-05-14] MEDS ORDERED: LISINOPRIL 10 MG TAB PO SCH (09:00)
[2019-05-14] MEDS ORDERED: MAGNESIUM HYDROXIDE SUSP 30 ML UDC PO ONE (10:53)
[2019-05-14] MEDS ORDERED: SENNA 8.6 MG TAB PO SCH (11:00)
--- NOTE | 2019-05-14 15:00 | Hospitalist Progress Note ---
Date of Service May 14, 2019 Assessment & Plan (1) Syncopal episodes: Recurrent syncope Syncopal episodes; polypharmacy -This is a 60 year old female who had previously presented to the hospital in April 2019 for altered mental status/unresponsiveness and was extensively worked up on that admission without finding singular acute cause of initial unresponsiveness with relatively quick improvement back to baseline with work up including negative lumbar puncture and negative EEG and was then discharged under the care of family members and at that time her headache symptoms resolved. as per history collaborated by patient's sister Ema [phone], patient did not follow up with primary care doctor or behavioral health doctor since the April 2019 discharge and that there were no changes recently made to her home medications and that patient takes the medications on her own -On 05/12/19 when she was working with physical therapy at residence shared with her sister Ema Theodore [phone] and as per her sister's history, the patient reported that she was feeling very tired. Patient then laid down and became less responsive and difficult to arouse but she did make movements to sternal rub when seen by EMS. The patient did not have a fall or injury, per EMS. EMS states the patient's blood sugar was at 220. When patient was seen by emergency room physician patient responded to loud verbal commands as well as painful stimuli but was not following commands appropriately. When seen by hospitalist further evaluation in the ED, the patient was able to respond to commands but speaking slowly. She complained of headache and neck pain. during exam by hospitalist no complaints of pain of the chest or abdomen. patient denied feeling shortness of breath. -head CT on this presentation is negative -troponins are negative -echocardiogram with normal ejection fraction; echocardiogram does show trace, loculated anterior pericardial effusion however this should be non-contributary to patient's syncope -normal EEG on 05/13/19 -normal orthostatics -as per neurology evaluation: suspect her transient encephalopathy is likely multifactorial secondary to untreated JULIO C and polypharmacy (combination of Klonopin, Gabapentin, and clonidine is high risk for delirium), possible untreated obstructive sleep apnea also contributory History of depression and Bipolar Disorder and restless leg syndrome -Continue escitalopram -continue buspirone -continue doxepin -hold clonazepam and hold home dose gabapentin -Patient will need to follow up with with Derick Paniagua in [place] which is associated with [facility] for behavioral health related medical issues Obstructive sleep apnea -as per patient she had sleep studies in the past but then never received CPAP machine -will start trial of CPAP at night while in the hospital -Patient should be evaluated by primary medical doctor at [facility]. Patient will benefit from having CPAP at night with sleep and primary care doctor should coordinate CPAP when patient completes physical rehabilitation and then goes home. Pericardial effusion -trace, loculated anterior pericardial effusion -chest discomfort could be pleuritic pain from pericardial effusion -conservative management with Ibuprofen headache and neck pain -these symptoms were seen on last hospitalization with normal lumbar puncture -possible that patient may have migraine headache -pain appears controlled at this time -Patient may take acetaminophen 325 mg every 6 hours as needed for pain or fever Patient may take ibuprofen 200 mg every 8 hours as needed for moderate pain HTN (hypertension): -continue patient's clonidine 1 mg BID -given lisinopril 10 mg on 05/14/19 but can resume home dose 20 mg daily on discharge -continue atorvastatin Diabetes mellitus type II without intermediate school teacher current use of insulin -HbA1c 6.9 on recent hospitalization -was given sliding scale insulin and diabetic diet while inpatient -patient can resume home dose Tradjenta on discharge PT/OT evaluations suggest that based on patient's ambulation, she would benefit from inpatient rehabilitation stay after hospital stay. Patient agrees to go to [facility] based on PT/OT assessments Full Code sister Ema [phone] brother in law [phone] Discharge Diagnosis Syncopal episode (recurrent); Pericardial effusion; Obstructive sleep apnea; History of depression and Bipolar Disorder and restless leg syndrome; polypharmacy; Diabetes mellitus type II without fpc current use of insulin Subjective no acute pain today. breathing on room air. she was able to tolerate trial of CPAP at night. no abdomen pain. no vomiting. no syncopal episodes. patient agrees to go to physical rehabilitation facility Physical Exam Constitutional: + obese Eyes: PERRL, conjunctivae normal, anicteric sclerae ENMT: external ear and nose normal, oropharynx normal Neck: normal visual inspection Respiratory: normal respiratory effort, lungs clear to auscultation Cardiovascular: RRR, no murmur, no edema Gastrointestinal (Abdomen): normal bowel sounds, soft, nontender, no hepatosplenomegaly Musculoskeletal: Head/Neck/Chest: normocephalic and head atraumatic Neurologic: moves all extremities Psychiatric: A+Ox3, euthymic affect Results & Data Vital Signs (Past 12 Hours) Vital Signs Temp Pulse Pulse Resp BP Pulse Ox 05/14/19 11:28 36.8 C 72 18 147/88 H 93 05/14/19 07:08 78 05/14/19 06:24 36.3 C L 74 20 143/90 H 97 05/14/19 05:00 147/90 H 05/14/19 04:17 35.8 C L 71 20 175/94 H 91
--- NOTE | 2019-05-14 15:10 | Discharge Summary ---
Date of Service May 14, 2019 Admission HPI Per Admitting Provider This is a 60 year old female who had previously presented to the hospital in April 2019 for altered mental status/unresponsiveness and was extensively worked up on that admission without finding singular acute cause of initial unresponsiveness with relatively quick improvement back to baseline with work up including negative lumbar puncture and negative EEG and was then discharged under the care of family members and at that time her headache symptoms resolved. as per history collaborated by patient's sister Ema [phone], patient did not follow up with primary care doctor or behavioral health doctor s dusty the April 2019 discharge and that there were no changes recently made to her home medications and that patient takes the medications on her own On 05/12/19 when she was working with physical therapy at residence shared with her sister Ema [phone] and as per her sister's history, the patient reported that she was feeling very tired. Patient then laid down and became less responsive and difficult to arouse but she did make movements to sternal rub when seen by EMS. The patient did not have a fall or injury, per EMS. EMS states the patient's blood sugar was at 220. When patient was seen by emergency room physician patient responded to loud verbal commands as well as painful stimuli but was not following commands appropriately. When seen by hospitalist further evaluation in the ED, the patient was able to respond to commands but speaking slowly. She complained of headache and neck pain. during exam by hospitalist no complaints of pain of the chest or abdomen. patient denied feeling shortness of breath. Admission Exam Per Admitting Provider Constitutional: + obese somewhat tired in speech and movements but responds to verbal commands Eyes: PERRL, conjunctivae normal, anicteric sclerae ENMT: external ear and nose normal, oropharynx normal Neck: normal visual inspection Respiratory: normal respiratory effort, lungs clear to auscultation Cardiovascular: RRR, no murmur, no edema Gastrointestinal (Abdomen): normal bowel sounds, soft, nontender, no hepatosplenomegaly Musculoskeletal: Head/Neck/Chest: normocephalic and head atraumatic Neurologic: moves all extremities Psychiatric: Orientation: cooperative Principal Diagnosis Syncopal episode (recurrent); Pericardial effusion; Obstructive sleep apnea; History of depression and Bipolar Disorder and restless leg syndrome; polypharmacy; Diabetes mellitus 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 Discharge Exam Constitutional + obese Eyes PERRL, conjunctivae normal, anicteric sclerae ENMT external ear and nose normal, oropharynx normal Neck normal visual inspection Respiratory normal respiratory effort, lungs clear to auscultation Cardiovascular RRR, no murmur, no edema Gastrointestinal (Abdomen) normal bowel sounds, soft, nontender, no hepatosplenomegaly Musculoskeletal Head/Neck/Chest: normocephalic and head atraumatic Neurologic moves all extremities Psychiatric A+Ox3, euthymic affect Orientation: cooperative Discharge Data Allergies Allergy/AdvReac Type Severity Reaction Status Date / Time latex Allergy Unknown rash Verified 01/23/12 11:02 Penicillins Allergy Unknown Verified 04/23/19 21:03 Consultations 05/12/19 16:42 ED Decision to Admit Stat 05/12/19 17:25 Consult Neurology Routine 05/13/19 07:31 Consult Case Management - Discharge Planning Routine Ordered Studies 05/12/19 14:06 CT abd pelvis IV con only Stat CT angio chest PE protocol Stat CT head/brain wo con Stat Hospital Course (1) Syncopal episodes: Recurrent syncope Syncopal episodes; polypharmacy -This is a 60 year old female who had previously presented to the hospital in April 2019 for altered mental status/unresponsiveness and was extensively worked up on that admission without finding singular acute cause of initial unresponsiveness with relatively quick improvement back to baseline with work up including negative lumbar puncture and negative EEG and was then discharged under the care of family members and at that time her headache symptoms resolv ed. as per history collaborated by patient's sister Ema [phone], patient did not follow up with primary care doctor or behavioral health doctor since the April 2019 discharge and that there were no changes recently made to her home medications and that patient takes the medications on her own -On 05/12/19 when she was working with physical therapy at residence shared with her sister Ema [phone] and as per her sister's history, the patient reported that she was feeling very tired. Patient then laid down and became less responsive and difficult to arouse but she did make movements to sternal rub when seen by EMS. The patient did not have a fall or injury, per EMS. EMS states the patient's blood sugar was at 220. When patient was seen by emergency room physician patient responded to loud verbal commands as well as painful stimuli but was not following commands appropriately. When seen by hospitalist further evaluation in the ED, the patient was able to respond to commands but speaking slowly. She complained of headache and neck pain. during exam by hospitalist no complaints of pain of the chest or abdomen. patient denied feeling shortness of breath. -head CT on this presentation is negative -troponins are negative -echocardiogram with normal ejection fraction; echocardiogram does show trace, loculated anterior pericardial effusion however this should be non-contributary to patient's syncope -normal EEG on 05/13/19 -normal orthostatics -as per neurology evaluation: suspect her transient encephalopathy is likely multifactorial secondary to untreated JULIO C and polypharmacy (combination of Klonopin, Gabapentin, and clonidine is high risk for delirium), possible untreated obstructive sleep apnea also contributory History of depression and Bipolar Disorder and restless leg syndrome -Continue escitalopram -continue buspirone -continue doxepin -hold clonazepam and hold home dose gabapentin -Patient will need to follow up with with [facility] in [place] which is associated with [facility] for behavioral health related medical issues Obstructive sleep apnea -as per patient she had sleep studies in the past but then never received CPAP machine -will start trial of CPAP at night while in the hospital -Patient should be evaluated by primary medical doctor at [facility]. Patient will benefit from having CPAP at night with sleep and primary care doctor should coordinate CPAP when patient completes physical rehabilitation and then goes home. Pericardial effusion -trace, loculated anterior pericardial effusion -chest discomfort could be pleuritic pain from pericardial effusion -conservative management with Ibuprofen headache and neck pain -these symptoms were seen on last hospitalization with normal lumbar puncture -possible that patient may have migraine headache -pain appears controlled at this time -Patient may take acetaminophen 325 mg every 6 hours as needed for pain or fever Patient may take ibuprofen 200 mg every 8 hours as needed for moderate pain HTN (hypertension): -continue patient's clonidine 1 mg BID -given lisinopril 10 mg on 05/14/19 but can resume home dose 20 mg daily on discharge -continue atorvastatin Diabetes mellitus type II without fpc current use of insulin -HbA1c 6.9 on recent hospitalization -was given sliding scale insulin and diabetic diet while inpatient -patient can resume home dose Tradjenta on discharge PT/OT evaluations suggest that based on patient's ambulation, she would benefit from inpatient rehabilitation stay after hospital stay. Patient agrees to go to [facility] based on PT/OT assessments Full Code sister Ema [phone] brother in law [phone] Discharge Diagnosis Syncopal episode (recurrent); Pericardial effusion; Obstructive sleep apnea; History of depression and Bipolar Disorder and restless leg syndrome; polypharmacy; Diabetes mellitus type II without fpc current use of insulin Total Time Total Time Spent Total Time Spent (In Minutes): 40 minutes Total Time Includes: Examination of the Patient, Discharge Planning, Medication Reconciliation and Communication With Other Providers Discharge Plan Discharge Items Patient Disposition: Transfer Inpatient Rehab Fac Reason For Visit: SYNCOPE Discharge Diagnosis: Syncopal episode (recurrent); Pericardial effusion; Obstructive sleep apnea; History of depression and Bipolar Disorder and restless leg syndrome; polypharmacy; Diabetes 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 Patient will benefit from having CPAP at night with sleep and primary care doctor should coordinate CPAP when patient completes physical rehabilitation and then goes home. Patient will need to follow up with with [facility] in [place] which is associated with [facility] for behavioral health related medical issues Patient may take acetaminophen 325 mg every 6 hours as needed for pain or fever Patient may take ibuprofen 200 mg every 8 hours as needed for moderate pain Prescriptions: New acetaminophen [Mapap (acetaminophen)] 325 mg Tablet 325 mg PO Q6H PRN (Reason: fever or pain) 5 Days Qty: 20 RF: 0 ibuprofen 200 mg capsule 200 mg PO Q8H PRN (Reason: moderate pain) 5 Days Qty: 15 RF: 0 Continued buspirone 5 mg tablet 5 mg PO DAILY RF: 0 atorvastatin 80 mg tablet 80 mg PO HS RF: 0 doxepin 25 mg capsule 25 mg PO HS RF: 0 ergocalciferol (vitamin D2) [Vitamin D2] 50,000 unit capsule 50,000 unit PO WK RF: 0 escitalopram oxalate 20 mg tablet 20 mg PO QAM RF: 0 Tradjenta 5 mg tablet 5 mg PO DAILY RF: 0 clonidine HCl 0.1 mg tablet 0.1 mg PO BID RF: 0 lisinopril 20 mg tablet 20 mg PO DAILY RF: 0 Combivent Respimat 20-100 mcg/actuation Mist 1 puff INHALATION QID RF: 0 Discontinued clonazepam 1 mg tablet 1 mg PO BID RF: 0 gabapentin 300 mg capsule 300 mg PO TID RF: 0 Stand-Alone Forms: [facility] Discharge Orders: Discharge Order (Routine); Ordered 05/14/19 Ordered By: Larry Dinh Skilled Items Patient informed of condition?: Yes DNR: No Discharge Level of Care: Acute rehab Communicable Disease: No Discharge Prognosis: Stable Admission Data Admit Date/Time: 05/12/19 17:27 Attending Provider: Larry Dinh Admit Provider: Larry Dinh Primary Care Provider: Cali Crews Other Providers: Abdiel Jolly ; Torey Parra Service: Telemetry Medical
== END 2019-05-14 17:45 ==
LOC: ED 14:00 → 2N 14:00

== ENCOUNTER 2019-07-13 16:19 | Inpatient (IN) ==
[2019-07-13] MEDS ORDERED: methylPREDNISolone 125 MG/2 ML VIAL IV STA (17:02)
[2019-07-13] MEDS ORDERED: ALBUT/IPRATROP 3MG/0.5MG NEB 3 ML VIAL NEB ONE (17:02)
--- NOTE | 2019-07-13 17:31 | XRay Report ---
XR chest 1V portable CLINICAL HISTORY: ok wheezing dyspnea COMPARISON STUDY: 05/12/2019 FINDINGS: Mild stable cardiomegaly. Chronic elevation right hemidiaphragm. Lungs are clear. Right shoulder arthroplasty. IMPRESSION: Chronic and postoperative change. No acute process. The above report was generated using voice recognition software. It may contain grammatical, syntax or spelling errors. Electronically signed by: Jignesh Davis M.D. 07/13/2019 5:30 PM
[2019-07-13 17:47] LABS: BUN Creatinine Ratio 13.5 (10-20); Blood Urea Nitrogen 17 mg/dl (7-18); Calcium 9.2 mg/dl (8.5-10.1); Carbon Dioxide 27 mmol/L (21-32); Chloride 102 mmol/L (98-107); Creatinine Clr Calc Pharmacy 64.3 ml/min; Est GFR (African American) 51.3; Est GFR (Non-African American) 44.3; Glucose 152 mg/dl (70-99); Magnesium 1.8 mg/dl (1.8-2.4); Potassium 4.3 mmol/L (3.5-5.1); Sodium 135 mmol/L (136-145)
[2019-07-13 17:52] LABS: Troponin I < 0.015 ng/ml (0-0.045)
[2019-07-13 17:56] LABS: Influenza A virus by PCR Neg for Influ A (Neg); Influenza B virus by PCR Neg for Influ B (Neg)
[2019-07-13 18:05] LABS: Basophils # (auto) 0.04 K/uL (0-0.2); Basophils % (auto) 0.4 %; Eosinophils # (auto) 0.49 K/uL (0-0.5); Eosinophils % (auto) 4.7 %; Hematocrit (blood only) 36.7 % (37-47); Hemoglobin 11.9 g/dL (12.0-16.0); Immature Granulocytes # (auto) 0.03 K/uL (0.00-0.02); Immature Granulocytes % (auto) 0.3 %; Lymphocytes # (auto) 2.69 K/uL (1.2-3.4); Lymphocytes % (auto) 25.5 %; Mean Corpuscular Hemoglobin 30.4 pg (25-34); Mean Corpuscular Hgb Conc 32.4 g/dL (32-36); Mean Corpuscular Volume 93.9 fL (80-100); Mean Platelet Volume 9.6 fL (7.4-10.4); Monocytes # (auto) 0.88 K/uL (0.11-0.59); Monocytes % (auto) 8.4 %; Neutrophils % (auto) 60.7 %; Platelet Count 223 K/uL (130-400); RDW Coefficient of Variation 15.8 % (11.5-14.5); RDW Standard Deviation 54.1 fL (36.4-46.3); Red Blood Count 3.91 M/uL (4.2-5.4); White Blood Count 10.53 K/uL (4.8-10.8)
[2019-07-13] MEDS ORDERED: MAGNESIUM SULFATE / D5W 1 GM/100 ML BAG IV ONE (19:17)
[2019-07-13] MEDS ORDERED: GLUCOSE 40% GEL 15 GM TUBE PO PRN (19:18)
[2019-07-13] MEDS ORDERED: CARBOHYDRATES FOR HYPOGLYCEMIA PO PRN (19:18)
[2019-07-13] MEDS ORDERED: SODIUM CHLORIDE 0.9% 1000ML 500 ML IV ONE (19:18)
[2019-07-13] MEDS ORDERED: DEXTROSE 50% 50 ML SYRINGE IV PRN (19:18)
[2019-07-13] MEDS ORDERED: GLUCAGON FOR INJ 1 MG VIAL SQ PRN (19:18)
[2019-07-13] MEDS ORDERED: GLUCOSE 10 TABS/TUBE PO PRN (19:18)
[2019-07-13] MEDS ORDERED: LEVALBUTEROL 1.25MG/0.5ML NEB NEB SCH (19:30)
--- NOTE | 2019-07-13 20:09 | History & Physical Report ---
Date of Service July 13, 2019 Assessment & Plan (1) Asthma exacerbation: (2) URI (upper respiratory infection): -This is a 69 year old Female patient who presents to emergency room with respiratory symptoms and chest pressure for 3 days. Patient has been having cough and shortness of breath. In the ED patient had wheezing. Chest X Ray did not find evidence of pneumonia. Influenza swab is negative. Patient when asked on review of systems reports chest pressure that correlated when coughing symptoms began. Patient did not have recorded fever temperature. She did feel subjectively more warm when at home but did not take her temperature. -symptoms include asthma exacerbation versus upper respiratory infection (no documented history of asthma but there is wheezing on exam, patient was encouraged to do workup for obstructive sleep apnea as outpatient in the past but still not on any CPAP at home) -nebulizer treatments, prednisone, empiric antibiotic with Doxycycline -obtain sputum culture Chest pain -likely from coughing and respiratory symptoms -initial troponin negative, trend troponins, serial EKGs, and telemetry monitoring -patient also noted to have history trace, loculated anterior pericardial effusion in the past and in previous April 2019 and May 2019 hospital stays, patient would complaints of chest discomfort an no positive cardiac markers History of recurrent syncope secondary to polypharmacy -was evaluated in April 2019 and May 2019 for confusion and respiratory distress that was deemed likely due to polypharmacy History of depression and Bipolar Disorder and restless leg syndrome -continue olanzapine 20 mg qhs, escitalopram 20 mg daily, continue doxepin 25 mg qhs, gabapentin 300 mg TID -sister Ema [phone] could not verify prior home medications of buspirone 5 mg BID or clonidine 0.1 mg BID so will hold these for now HTN (hypertension): -lisinopril 10 mg daily Diabetes mellitus type II without chcf current use of insulin -sliding scale insulin and diabetic diet while inpatient -sister Ema [phone] could not verify home dose of Tradjenta Full Code Status Patient lives with sister Ema [phone] History of Present Illness This is a 69 year old Female patient who presents to emergency room with respiratory symptoms and chest pressure for 3 days. Patient has been having cough and shortness of breath. In the ED patient had wheezing. Chest X Ray did not find evidence of pneumonia. Influenza swab is negative. Patient when asked on review of systems reports chest pressure that correlated when coughing symptoms began. Patient did not have recorded fever temperature. She did feel subjectively more warm when at home but did not take her temperature. Patient has been living with her sister and patient's home medications were verified with phone call to Ema [phone] Patient denies abdominal pain or vomiting or problems with urination or with bowel movements. Patient denies dizziness or lightheadedness. Patient denies problems with walking at home. Primary Care Provider: Cali Crews DO Allergies Allergy/AdvReac Type Severity Reaction Status Date / Time latex Allergy Unknown rash Verified 07/13/19 17:40 Penicillins Allergy Unknown Verified 07/13/19 17:40 Home Medications Home Medications Medication Instructions Recorded Confirmed Type Tradjenta 5 mg PO DAILY 04/23/19 07/13/19 History doxepin 25 mg PO HS 04/23/19 07/13/19 History escitalopram oxalate 20 mg PO QAM 04/23/19 07/13/19 History albuterol sulfate [Ventolin HFA] 2 puff INHALATION Q6H PRN 07/13/19 07/13/19 History clonazepam [Klonopin] 1 mg PO BID 07/13/19 07/13/19 History deutetrabenazine [Austedo] 12 mg PO HS 07/13/19 07/13/19 History diclofenac sodium [Voltaren] 2 g TOPICAL QID 07/13/19 07/13/19 History gabapentin [Neurontin] 300 mg PO TID 07/13/19 07/13/19 History lisinopril 10 mg PO DAILY 07/13/19 07/13/19 History olanzapine [Zyprexa] 20 mg PO PM 07/13/19 07/13/19 History pramipexole 0.125 mg PO PM 07/13/19 07/13/19 History Past Med/Surg History Medical History Dyslipidemia (Chronic) RLS (restless legs syndrome) (Chronic) HTN (hypertension) (Chronic) Obesity (Chronic) CKD (chronic kidney disease), stage II (Chronic) Depression (Chronic) Bipolar disorder (Chronic) Diabetes mellitus, type II (Chronic) Stomach problems Emphysema lung COPD (chronic obstructive pulmonary disease) Diabetes H/O: hysterectomy HTN (hypertension) Heart disease Surgical History Hx of hernia repair S/P appendectomy S/P gastric bypass Status post bilateral knee replacements Social History Preferred Language: Iraqi Communication Ability: Effective [employer] Offbearer Required: No Beliefs That Will Affect Care: None Current Living Situation: Family Feels Safe at Home: Yes Smoking Status: Never smoker Hx Alcohol Use: No Hx Substance Use: No Review of Systems Constitutional: as per Subjective / HPI Physical Exam Constitutional: cooperative Eyes: PERRL, conjunctivae normal, anicteric sclerae EOM intact bilaterally ENMT: external ear and nose normal, oropharynx normal Neck: normal visual inspection Respiratory: normal respiratory effort and + cough Auscultation: + wheezes Cardiovascular: Rate/Rhythm: regular rate Gastrointestinal (Abdomen): normal bowel sounds, soft, nontender, no hepatosplenomegaly Musculoskeletal: Head/Neck/Chest: normocephalic and head atraumatic Neurologic: PERRL, EOMI, accommodation nl, no face palsy, no dysarthria CN's II-XI intact bilaterally Psychiatric: A+Ox3, euthymic affect Results & Data Vital Signs (Past 12 Hours) Vital Signs Temp Pulse Pulse Resp BP BP Pulse Ox 07/13/19 20:00 100 H 29 H 131/84 93 07/13/19 19:00 98 H 16 110/62 92 07/13/19 18:00 91 H 16 127/66 99 07/13/19 17:38 91 H 18 95/80 L 98 07/13/19 17:37 91 H 18 95/80 L 99 07/13/19 17:18 88 20 107/73 99 07/13/19 17:16 22 96 07/13/19 17:03 98 07/13/19 16:48 98 07/13/19 16:47 37.0 C 90 26 H 115/66 97 Code Status & VTE Plan VTE Prophylaxis Plan VTE Prophylaxis will be ordered: Yes
[2019-07-13] MEDS ORDERED: predniSONE 20 MG TAB PO STA (20:41)
[2019-07-13] MEDS: DOXYCYCLINE HYCLATE 100 MG in DEXTROSE 5% 100 ML IV SCH (22:50)
[2019-07-13] MEDS: clonazePAM 1 MG TAB PO SCH (22:51)
[2019-07-13] MEDS: INSULIN ASPART 100 UNITS/ML 3 ML PEN SC SCH (23:12)
[2019-07-13] MEDS: DOXEPIN HCL 25 MG CAPSULE PO SCH (23:17)
[2019-07-13] MEDS: OLANZapine 20 MG TABLET PO SCH (23:17)
[2019-07-13] MEDS: PRAMIPEXOLE DIHYDROCHLO 0.25 MG TAB PO SCH (23:17)
[2019-07-13] MEDS: GABAPENTIN 300 MG CAP PO SCH (23:18)
[2019-07-13] MEDS: MoRPHine SULFATE 4 MG/ML 1 ML CARP\\VIAL IV PRN (23:33)
--- NOTE | 2019-07-14 00:24 | Emergency Department Note ---
Entered by La Priest acting as a scribe for Robin Romo History of Present Illness General Chief complaint: Shortness of Breath/Dyspnea Stated complaint: SOB Time Seen by Provider: 07/13/19 16:53 History of Present Illness Provider complaint: shortness of breath Onset (ago): hour(s) 2 Pain Consistency: + other (episode) Quality: + other (shortness of breath) Relieved By: + other (denies relief from 3 nebulizer treatments yesterday and 3 nebulizer treatments today) Associated symptoms: + denies other symptoms (wearing oxygen at home, diarrhea), + fever/chills (102 F last night ) and + other (gets short of breath walking from living room to kitchen, hx of 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 The patient states that she does not use oxygen at home even though she gets short of breath walking from her living room into the kitchen. The patient states that she has a history of COPD and emphysema from secondhand smoke. The patient states that she also had a fever of 102 F last night. The patient states that she has a heavy feeling on her chest. The patient denies productive cough, nausea, vomiting, and diarrhea. The patient notes that she used her nebulizer 3 times yesterday and 3 times today but denies relief. Per EMS, the patient had 1 duoneb treatment en route. Home Medications Home Medications Medication Instructions Recorded Confirmed Type Tradjenta 5 mg PO DAILY 04/23/19 07/13/19 History doxepin 25 mg PO HS 04/23/19 07/13/19 History escitalopram oxalate 20 mg PO QAM 04/23/19 07/13/19 History albuterol sulfate [Ventolin HFA] 2 puff INHALATION Q6H PRN 07/13/19 07/13/19 History clonazepam [Klonopin] 1 mg PO BID 07/13/19 07/13/19 History deutetrabenazine [Austedo] 12 mg PO HS 07/13/19 07/13/19 History diclofenac sodium [Voltaren] 2 g TOPICAL QID 07/13/19 07/13/19 History gabapentin [Neurontin] 300 mg PO TID 07/13/19 07/13/19 History lisinopril 10 mg PO DAILY 07/13/19 07/13/19 History olanzapine [Zyprexa] 20 mg PO PM 07/13/19 07/13/19 History pramipexole 0.125 mg PO PM 07/13/19 07/13/19 History Allergies Allergy/AdvReac Type Severity Reaction Status Date / Time latex Allergy Unknown rash Verified 07/13/19 17:40 Penicillins Allergy Unknown Verified 07/13/19 17:40 Past Med/Surg History Social History Preferred Language: Armenian Communication Ability: Effective Carpet Jack Required: No Beliefs That Will Affect Care: None Current Living Situation: Family Current Living Situation Comment: lives with sister Other Information That Helps Us Care for You: No Feels Safe at Home: Yes Safety Concerns: Feels Safe At This Time Smoking Status: Never smoker Hx Alcohol Use: No Hx Substance Use: No Review of Systems See HPI for pertinent positives & negatives. and A total of 10 systems reviewed and were otherwise negative Physical Exam Vital Signs Vital Signs - 24 hr 07/13/19 16:47 07/13/19 16:48 07/13/19 17:03 Temperature 37.0 C Temperature Source Oral Sepsis Recent Fever Within 48 Hours No Sepsis Action Taken by Nursing No Action Required Pulse Rate 90 Pulse Rate [Apical] Pulse Rate from SpO2 Sensor Respiratory Rate 26 H Respiratory Effort / Characteristics Blood Pressure 115/66 Blood Pressure [Right Arm] Blood Pressure Mean 82 Blood Pressure Mean [Right Arm] Pulse Oximetry 97 98 98 Oxygen Delivery Method Room Air Nasal Cannula Room Air Oxygen Flow Rate 1 07/13/19 17:16 07/13/19 17:18 07/13/19 17:37 Temperature Temperature Source Sepsis Recent Fever Within 48 Hours Sepsis Action Taken by Nursing Pulse Rate 88 Pulse Rate [Apical] 91 H Pulse Rate from SpO2 Sensor 88 Respiratory Rate 22 20 18 Respiratory Effort / Characteristics Non-Labored Spontaneous Labored Blood Pressure 107/73 Blood Pressure [Right Arm] 95/80 L Blood Pressure Mean 84 Blood Pressure Mean [Right Arm] 85 Pulse Oximetry 96 99 99 Oxygen Delivery Method Room Air Nebulizer Oxygen Flow Rate 07/13/19 17:38 07/13/19 18:00 07/13/19 19:00 Temperature Temperature Source Sepsis Recent Fever Within 48 Hours Sepsis Action Taken by Nursing Pulse Rate 91 H 91 H 98 H Pulse Rate [Apical] Pulse Rate from SpO2 Sensor 92 H 92 H 99 H Respiratory Rate 18 16 16 Respiratory Effort / Characteristics Blood Pressure 95/80 L 127/66 110/62 Blood Pressure [Right Arm] Blood Pressure Mean 85 86 78 Blood Pressure Mean [Right Arm] Pulse Oximetry 98 99 92 Oxygen Delivery Method Oxygen Flow Rate 07/13/19 20:00 Temperature Temperature Source Sepsis Recent Fever Within 48 Hours Sepsis Action Taken by Nursing Pulse Rate 100 H Pulse Rate [Apical] Pulse Rate from SpO2 Sensor 100 H Respiratory Rate 29 H Respiratory Effort / Characteristics Blood Pressure 131/84 Blood Pressure [Right Arm] Blood Pressure Mean 99 Blood Pressure Mean [Right Arm] Pulse Oximetry 93 Oxygen Delivery Method Room Air Oxygen Flow Rate GENERAL: She is oriented to person, place, and time. She appears well-developed and well-nourished. She does not appear distressed. Audible expiratory wheezes, labored breathing. HENT: Exam performed. -Head: Normocephalic and atraumatic. -Right Ear: External ear normal. No mastoid tenderness. -Left Ear: External ear normal. No mastoid tenderness. -Mouth/Throat: The oropharynx is clear and moist. No trismus in the jaw. No dental abscesses or uvula swelling. No oropharyngeal exudate or tonsillar abscesses. EYES: Conjunctivae and EOM are normal. Pupils are equal, round, and reactive to light. Right eye exhibits no discharge. Left eye exhibits no discharge. No scleral icterus. NECK: Normal range of motion. Neck supple. No JVD present. No spinous process tenderness present. No carotid bruit present. No rigidity. No tracheal deviation and normal range of motion present. No Brudzinski's sign and no Kernig's sign noted. CV: Normal rate, regular rhythm, normal heart sounds and intact distal pulses. There is no peripheral edema. Palpable radial pulses bue. PULM/CHEST: Tachypneic. Effort normal and breath sounds normal. No stridor.. She has no rales. Chest Wall: She exhibits no tenderness. ABD: The abdomen is soft. Bowel sounds are normal. She has no distension. No mass is present. There is no tenderness. There is no rebound, no guarding, no Avery's sign and no tenderness at McBurney's point. Rovsig negative MUSC/SKEL: Normal range of motion. There is no peripheral edema, tenderness or deformity. LYMPH: No cervical adenopathy. NEURO: She is alert and oriented to person, place, and time. She has normal strength. No cranial nerve deficit or sensory deficit. Coordination and gait normal. GCS eye subscore is 4. GCS verbal subscore is 5. GCS motor subscore is 6. cerbellar tests wnl. SKIN: Skin is warm and dry. She is not diaphoretic. PSYCH: She has a normal mood and affect. Her behavior is normal. Judgment and thought content normal. Course 165: Past medical records reviewed. The patient was evaluated in room B5. A complete history and physical exam was performed. 1740: I reevaluated the patient and she still has expiratory wheezing and is continuing to receive hour-long DuoNeb treatment. 1831: Vital signs stable. Labs and imaging within normal limits. Patient is still having wheezing after the 1 hour long duoneb breathing treatment. I discussed discharge options or plan to stay and she said she would feel more comfortable staying here. I discussed the patient's case with Sindy Betancur PA-C. She will accept the patient for Dr. Natalee kim Hospitalist. They will evaluate the patient for further management. Consultations Consultation #1: I discussed the patient's case with Sindy Betancur PA-C. She will accept the patient for Dr. Natalee Trujillo. They will evaluate the patient for further management. Time: 18:39 Administered Medications Clonazepam (Klonopin) 1 mg PO BID ADA Stop: 08/12/19 20:59 Last Admin: 07/13/19 22:51 Dose: 1 mg Documented by: [id number] Doxepin HCl (Sinequan) 25 mg PO HS ADA Stop: 08/12/19 20:59 Last Admin: 07/13/19 23:17 Dose: 25 mg Documented by: [id number] Gabapentin (Neurontin) 300 mg PO TID ADA Stop: 08/12/19 20:59 Last Admin: 07/13/19 23:18 Dose: 300 mg Documented by: [id number] Doxycycline Hyclate 100 mg/ (Dextrose) 110 mls @ 50 mls/hr IV Q12H ADA Stop: 07/20/19 21:59 Last Admin: 07/13/19 22:50 Dose: 50 mls/hr Documented by: [id number] Insulin Aspart (Novolog Flexpen) 0 units SC ACHS ADA Stop: 08/12/19 20:59 Last Admin: 07/13/19 23:12 Dose: 12 units Documented by: [id number] Cosigned by: [id number] Morphine Sulfate (Morphine Sulfate) 3 mg IV Q3H PRN PRN Reason: Pain Stop: 07/27/19 23:03 Last Admin: 07/13/19 23:33 Dose: 3 mg Documented by: [id number] Olanzapine (Zyprexa) 20 mg PO PM ADA Stop: 08/12/19 20:59 Last Admin: 07/13/19 23:17 Dose: 20 mg Documented by: [id number] Pramipexole Dihydrochloride (Mirapex) 0.125 mg PO PM ADA Stop: 08/12/19 20:59 Last Admin: 07/13/19 23:17 Dose: 0.125 mg Documented by: [id number] Discontinued Medications Albuterol (Duoneb) 12 ml NEB ONE ONE Stop: 07/13/19 17:03 Last Admin: 07/13/19 17:14 Dose: 12 ml Documented by: [id number] Magnesium Sulfate/Dextrose (Magnesium Sulfate / D5w) 1 gm in 100 mls @ 100 mls/hr IV ONE ONE Stop: 07/13/19 20:16 Last Infusion: 07/13/19 22:40 Dose: 0 mls/hr Documented by: [id number] Admin: 07/13/19 20:46 Dose: 100 mls/hr Documented by: [id number] Sodium Chloride (Nss 1000ml) 500 mls @ 999 mls/hr IV .Q31M ONE Stop: 07/13/19 19:48 Last Infusion: 07/13/19 22:40 Dose: 0 mls/hr Documented by: [id number] Admin: 07/13/19 20:46 Dose: 999 mls/hr Documented by: [id number] Levalbuterol HCl (Xopenex 1.25mg/0.5ml Neb) 1.25 mg NEB Q6R ADA Stop: 08/12/19 19:29 Last Admin: 07/13/19 19:53 Dose: Not Given Documented by: [id number] Methylprednisolone (Solumedrol) 125 mg IV NOW STA Stop: 07/13/19 17:03 Last Admin: 07/13/19 17:38 Dose: 125 mg Documented by: [id number] Prednisone (Prednisone) 40 mg PO NOW STA Stop: 07/13/19 20:42 Last Admin: 07/13/19 20:56 Dose: 40 mg Documented by: [id number] Medical Decision Making Medical Records Attestation: I reviewed the patient's medical records. Home Medications Current Medication List: was personally reviewed by or Laboratory Data Attestation: I reviewed the patient's lab results. Result diagrams: 07/13/19 17:19 07/13/19 17:19 Lab Results 07/13/19 07/13/19 07/13/19 Range/Units 17:14 17:19 17:19 WBC 10.53 (4.8-10.8) K/uL RBC 3.91 L (4.2-5.4) M/uL Hgb 11.9 L (12.0-16.0) g/dL Hct 36.7 L (37-47) % MCV 93.9 (80-100) fL MCH 30.4 (25-34) pg MCHC 32.4 (32-36) g/dL RDW Std Deviation 54.1 H (36.4-46.3) fL RDW Coeff of Diego 15.8 H (11.5-14.5) % Plt Count 223 (130-400) K/uL MPV 9.6 (7.4-10.4) fL Immature Gran % (Auto) 0.3 % Neut % (Auto) 60.7 % Lymph % (Auto) 25.5 % [place] % (Auto) 8.4 % Eos % (Auto) 4.7 % Baso % (Auto) 0.4 % Immature Gran # (Auto) 0.03 H (0.00-0.02) K/uL Neut # (Auto) 6.40 (1.4-6.5) K/uL Lymph # (Auto) 2.69 (1.2-3.4) K/uL [place] # (Auto) 0.88 H (0.11-0.59) K/uL Eos # (Auto) 0.49 (0-0.5) K/uL Baso # (Auto) 0.04 (0-0.2) K/uL Sodium 135 L (136-145) mmol/L Potassium 4.3 (3.5-5.1) mmol/L Chloride 102 (98-107) mmol/L Carbon Dioxide 27 (21-32) mmol/L Anion Gap 6.0 (3-11) BUN 17 (7-18) mg/dl Creatinine 1.24 H (0.6-1.2) mg/dl Est Cr Clr Drug Dosing 64.3 ml/min Est GFR ( Amer) 51.3 Est GFR (Non-Af Amer) 44.3 BUN/Creatinine Ratio 13.5 (10-20) Glucose 152 H (70-99) mg/dl Calcium 9.2 (8.5-10.1) mg/dl Magnesium 1.8 (1.8-2.4) mg/dl Troponin I < 0.015 (0-0.045) ng/ml Influenza Type A (PCR) Neg for Influ A (Neg) Influenza Type B (PCR) Neg for Influ B (Neg) Imaging Data Radiologist's Impression: Radiology results as stated below per my review and the radiologist's interpretation: XR chest 1V portable CLINICAL HISTORY: ok wheezing dyspnea COMPARISON STUDY: 05/12/2019 FINDINGS: Mild stable cardiomegaly. Chronic elevation right hemidiaphragm. Lungs are clear. Right shoulder arthroplasty. IMPRESSION: Chronic and postoperative change. No acute process. The above report was generated using voice recognition software. It may contain grammatical, syntax or spelling errors. Electronically signed by: Jignesh Davis M.D. 07/13/2019 5:30 PM ECG Data Attestation: I personally reviewed and interpreted this ECG as follows: Indication: + SOB/dyspnea Rate (beats per minute): 89 Rhythm: + sinus rhythm ECG Intervals/blocks: + Normal QRS ECG ST segments: + T-wave inversions ECG Findings: + Other (W[place] and QTC within normal limits, left ventricular hypertrophy) Comparison ECG Date: from (May 2019) Change: no significant change Blood Pressure Blood Pressure Findings: Low blood pressure Blood Pressure Disposition: further management by hospitalist ELROY Narrative 1657: Past medical records reviewed. The patient was evaluated in room B5. A complete history and physical exam was performed. 174: I reevaluated the patient and she still has expiratory wheezing and is continuing to receive hour-long DuoNeb treatment. 1832: Vital signs stable. Labs and imaging within normal limits. Patient is still having wheezing after the 1 hour long duoneb breathing treatment. I discussed discharge options or plan to stay and she said she would feel more comfortable staying here. I discussed the patient's case with Sindy Betancur PA-C. She will accept the patient for Dr. Natalee chilel Hospitalist. They will evaluate the patient for further management. Impression & Plan COPD exacerbation Discharge Plan Visit Data *Final* Discharge Date/Time: 07/13/19 21:36 Chief Complaint: Shortness of Breath/Dyspnea Stated Complaint: SOB ED Provider: Robin Romo Discharge Problem: COPD exacerbation Patient Disposition: Admitted As Inpatient Discharge Instructions Interventions: ED Discharge Assessment Last Done: 07/13/19 21:36 The scribe's documentation has been prepared under my direction and personally reviewed by me in its entirety. I confirm that the note above accurately reflects all work, treatment, procedures, and medical decision making performed by me.
[2019-07-14 00:54] LABS: Basophils # (auto) 0.01 K/uL (0-0.2); Basophils % (auto) 0.1 %; Eosinophils # (auto) 0.01 K/uL (0-0.5); Eosinophils % (auto) 0.1 %; Hematocrit (blood only) 36.3 % (37-47); Immature Granulocytes # (auto) 0.06 K/uL (0.00-0.02); Immature Granulocytes % (auto) 0.6 %; Lymphocytes # (auto) 0.77 K/uL (1.2-3.4); Lymphocytes % (auto) 7.4 %; Mean Corpuscular Hgb Conc 33.1 g/dL (32-36); Mean Corpuscular Volume 93.8 fL (80-100); Mean Platelet Volume 9.1 fL (7.4-10.4); Monocytes # (auto) 0.07 K/uL (0.11-0.59); Monocytes % (auto) 0.7 %; Neutrophils # (auto) 9.51 K/uL (1.4-6.5); Neutrophils % (auto) 91.1 %; Platelet Count 243 K/uL (130-400); RDW Coefficient of Variation 15.7 % (11.5-14.5); RDW Standard Deviation 53.4 fL (36.4-46.3); Red Blood Count 3.87 M/uL (4.2-5.4); White Blood Count 10.43 K/uL (4.8-10.8)
[2019-07-14] MEDS: LEVALBUTEROL HCL 1.25 MG/3 ML NEB NEB SCH ×4 (01:10→19:36)
[2019-07-14 01:19] LABS: Alanine Aminotransferase 17 U/L (12-78); Albumin Globulin Ratio 0.7 (0.9-2); Albumin Level 3.1 gm/dl (3.4-5.0); Alkaline Phosphatase 115 U/L (45-117); Aspartate Aminotransferase 11 U/L (15-37); BUN Creatinine Ratio 12.6 (10-20); Bilirubin,Total 0.2 mg/dl (0.2-1); Blood Urea Nitrogen 18 mg/dl (7-18); Calcium 8.9 mg/dl (8.5-10.1); Carbon Dioxide 23 mmol/L (21-32); Chloride 103 mmol/L (98-107); Est GFR (African American) 43.6; Est GFR (Non-African American) 37.6; Globulin 4.3 gm/dl (2.5-4.0); Glucose 338 mg/dl (70-99); Potassium 4.9 mmol/L (3.5-5.1); Sodium 137 mmol/L (136-145); Total Protein 7.4 gm/dl (6.4-8.2); Troponin I < 0.015 ng/ml (0-0.045)
[2019-07-14] MEDS ORDERED: NovoLIN-R INSULIN PER UNIT CHARGE IV STA (01:37)
[2019-07-14] MEDS ORDERED: INSULIN HUMAN REGULAR PER UNIT 4 UNITS in SYRINGE 3.96 ML IV ONE (01:45)
[2019-07-14] MEDS: MoRPHine SULFATE 4 MG/ML 1 ML CARP\\VIAL IV PRN ×3 (05:22→20:00)
[2019-07-14] MEDS ORDERED: INFLUENZA ADMINISTRATION CHARGE ONE (05:45)
[2019-07-14] MEDS ORDERED: PNEUMOCOCCAL POLYSACCHARIDES 25 MCG/0.5 ML VIAL/SYR IM ONE (05:45)
[2019-07-14] MEDS ORDERED: INFLUENZA VACCINE HIGH DOSE 65+ 0.5 ML SYR IM ONE (05:45)
[2019-07-14] MEDS ORDERED: PNEUMOCOCCAL ADMINISTRATION CHARGE ONE (05:45)
[2019-07-14] MEDS: GABAPENTIN 300 MG CAP PO SCH ×3 (08:37→20:32)
[2019-07-14] MEDS: ESCITALOPRAM OXALATE 20 MG TAB PO SCH (08:38)
[2019-07-14] MEDS: LISINOPRIL 10 MG TAB PO SCH (08:38)
[2019-07-14] MEDS: INSULIN ASPART 100 UNITS/ML 3 ML PEN SC SCH ×5 (08:39→23:38)
[2019-07-14] MEDS: clonazePAM 1 MG TAB PO SCH ×2 (08:42→20:31)
[2019-07-14] MEDS ORDERED: predniSONE 20 MG TAB PO SCH (09:00)
[2019-07-14] MEDS: DOXYCYCLINE HYCLATE 100 MG in DEXTROSE 5% 100 ML IV SCH (10:28)
--- NOTE | 2019-07-14 17:28 | Hospitalist Progress Note ---
Date of Service July 14, 2019 Assessment & Plan (1) COPD exacerbation: Uncontrolled wheezing. Change prednisone to Solumedrol 40mg IV q6h. Cont scheduled neb treatments with a 1 hr neb now. Robitussin AC for comfort. Cont Doxy. Not needing oxygen support at this time. Sputum culture pending. (2) Chest pain: Chest pressure with exertion for the past 3 months with risk factors for CAD. This became more consistent chest pressure over the past 3 days with rest, possibly worsened with her pulmonary issues. Telemetry was reviewed revealing sinus rhythm overnight. Serial cardiac enzymes were drawn and negative overnight. EKGs are not consistent with ischemia. Will obtain an echo in am. Will cont efforts to get chest pain under control, which also may help identify etiology, including cough syrup, nebs, solumedrol, morphine PRN, pepcid PRN, nitro PRN. Discussed the plan with nursing who will continue to reassess for chest pain. (3) RLS (restless legs syndrome): cont home medications. (4) Obesity: (5) Bipolar disorder: cont home medications (6) Diabetes mellitus, type II: Uncontrolled, A1C pending in am. Inpatient glucose uncontrolled as no carb coverage was ordered overnight, then when it was added, it was not seen and administered with her lunch. Therefore, she is elevated this evening. Now with plans for increased steroid dose, will ask for glycemic pharmacy consult. Pt states that she is on one pill at home but doesn't know the name. Prior records reflect that she is taking Tradjenta 5mg PO daily. (7) DVT prophylaxis: Heparin (Lovenox considered to minimize shot burden but patient has latex allergy) Full Dispo-to home when medically stable. DO [facility] Hospitalist Subjective +chest pain with exertion for 2-3 months, better with rest. now having persistent chest pain at rest for the last 2-3 days. coughing and wheezing significantly for 2-3 weeks presented to the ER finally because she was so short of breath flu negative, CXR negative serial trop and EKG negative for ACS tolerating PO-denies GI symptoms not requiring oxygen reports minimal sleep overnight last night. asking for cough syrup Review of Systems Review of Systems: All systems reviewed & are unremarkable except as noted in HPI & below Physical Exam Physical Exam: CONSTITUTIONAL: obese, vitals as above, generally well- appearing EYES: normal conjunctivae, no scleral icterus ENT: MMM RESPIRATORY: diffuse wheezing throughout all lung harrison. normal respiratory effort. coughing with deep breathing CARDIOVASCULAR: regular rate and rhythm, S1 and 2 heard without murmurs, gallops or rubs, no JVD, no peripheral edema GASTROINTESTINAL: soft, nontender, nondistended MUSCULOSKELETAL: strength 5/5 throughout, head is normocephalic and atraumatic SKIN: warm and dry NEUROLOGIC: CN 2-12 grossly intact, no sensory deficit, normal cognition, normal speech, no tremor, no gross focal deficits. PSYCHIATRIC: alert cooperative and oriented to person, place and time. Results & Data Vital Signs (Past 12 Hours) Vital Signs Temp Pulse Pulse Pulse Resp BP Pulse Ox 07/14/19 16:11 112 H 07/14/19 15:30 36.7 C 90 18 125/73 93 07/14/19 13:10 79 20 95 07/14/19 11:25 36.7 C 102 H 18 147/89 H 95 07/14/19 07:42 36.3 C L 101 H 18 128/80 95 07/14/19 07:23 102 H 07/14/19 07:02 84 20 96 Laboratory Results Short CBC 07/13/19 07/14/19 Range/Units 17:19 00:42 WBC 10.53 10.43 (4.8-10.8) K/uL Hgb 11.9 L 12.0 (12.0-16.0) g/dL Hct 36.7 L 36.3 L (37-47) % Plt Count 223 243 (130-400) K/uL BMP 07/13/19 07/14/19 17:19 00:42 Sodium 135 L 137 Potassium 4.3 4.9 Chloride 102 103 Carbon Dioxide 27 23 BUN 17 18 Creatinine 1.24 H 1.42 H Glucose 152 H 338 H* Calcium 9.2 8.9 Cardiac Enzymes 07/13/19 07/14/19 07/14/19 Range/Units 17:19 00:42 08:09 Troponin I < 0.015 < 0.015 < 0.015 (0-0.045) ng/ml Liver Function 07/14/19 Range/Units 00:42 Total Bilirubin 0.2 (0.2-1) mg/dl AST 11 L (15-37) U/L ALT 17 (12-78) U/L Alkaline Phosphatase 115 (45-117) U/L Albumin 3.1 L (3.4-5.0) gm/dl Medications Administered Current Inpatient Medications Clonazepam (Klonopin) 1 mg PO BID ADA Stop: 08/12/19 20:59 Last Admin: 07/14/19 08:42 Dose: 1 mg Documented by: Dextrose (Dextrose 50%) 25 - 50 ml IV UD PRN; Protocol PRN Reason: Hypoglycemia Protocol Stop: 08/12/19 19:17 Doxepin HCl (Sinequan) 25 mg PO HS ADA Stop: 08/12/19 20:59 Last Admin: 07/13/19 23:17 Dose: 25 mg Documented by: Escitalopram Oxalate (Lexapro Tab) 20 mg PO QAM ADA Stop: 08/13/19 08:59 Last Admin: 07/14/19 08:38 Dose: 20 mg Documented by: Gabapentin (Neurontin) 300 mg PO TID ADA Stop: 08/12/19 20:59 Last Admin: 07/14/19 14:43 Dose: 300 mg Documented by: Glucagon (Glucagen) 1 mg SQ UD PRN; Protocol PRN Reason: Hypoglycemia Protocol Stop: 08/12/19 19:17 Glucose (Glucose 40%) 15 - 30 gm PO UD PRN; Protocol PRN Reason: Hypoglycemia Protocol Stop: 08/12/19 19:17 Glucose (Dex4 Glucose) 4 - 8 tabs PO UD PRN; Protocol PRN Reason: Hypoglycemia Protocol Stop: 08/12/19 19:17 Doxycycline Hyclate 100 mg/ (Dextrose) 110 mls @ 50 mls/hr IV Q12H ADA Stop: 07/20/19 21:59 Last Infusion: 07/14/19 12:33 Dose: Infused Documented by: Insulin Aspart (Novolog Flexpen) 0 units SC ACHS ADA Stop: 08/12/19 20:59 Last Admin: 07/14/19 12:02 Dose: 4 units Documented by: Levalbuterol HCl (Xopenex 1.25mg/3ml Neb) 1.25 mg NEB Q6R ADA Stop: 08/13/19 00:59 Last Admin: 07/14/19 13:10 Dose: 1.25 mg Documented by: Lisinopril (Zestril) 10 mg PO DAILY ADA Stop: 08/13/19 08:59 Last Admin: 07/14/19 08:38 Dose: 10 mg Documented by: Miscellaneous (Carbohydrates For Hypoglycemia) 15 - 30 gm PO UD PRN PRN Reason: Hypoglycemia Protocol Stop: 08/12/19 19:17 Miscellaneous (Order Awaiting Action) 1 ea N/A QS ADA Stop: 08/13/19 07:59 Last Admin: 07/14/19 16:25 Dose: Not Given Documented by: Morphine Sulfate (Morphine Sulfate) 3 mg IV Q3H PRN PRN Reason: Pain Stop: 07/27/19 23:03 Last Admin: 07/14/19 11:58 Dose: 3 mg Documented by: Olanzapine (Zyprexa) 20 mg PO PM ADA Stop: 08/12/19 20:59 Last Admin: 07/13/19 23:17 Dose: 20 mg Documented by: Pramipexole Dihydrochloride (Mirapex) 0.125 mg PO PM ADA Stop: 08/12/19 20:59 Last Admin: 07/13/19 23:17 Dose: 0.125 mg Documented by: Prednisone (Prednisone) 40 mg PO DAILY ADA Stop: 08/13/19 08:59 Last Admin: 07/14/19 08:38 Dose: 40 mg Documented by: (1) Chest pain Chest pain type: unspecified Qualified Code(s): R07.9 - Chest pain, unspecified
[2019-07-14] MEDS ORDERED: PHARMACY GLYCEMIC MGMT CONSULT PRN (17:35)
[2019-07-14] MEDS ORDERED: ALBUTEROL 0.083% NEBU SOLN 3 ML VIAL NEB STA (17:48)
[2019-07-14] MEDS ORDERED: INSULIN HUMAN NPH SC ONE (18:00)
[2019-07-14] MEDS ORDERED: NITROGLYCERIN SL 0.4 MG/TAB TAB SL PRN (18:00)
[2019-07-14] MEDS ORDERED: GUAIFENESIN/CODEINE 100MG/10MG 5ML UDC PO STA (18:01)
[2019-07-14] MEDS ORDERED: FAMOTIDINE 10 MG/ML 2ML VIAL IV PRN (18:22)
[2019-07-14] MEDS: methylPREDNISolone 40 MG in SYRINGE 0 ML IV SCH ×2 (18:49→23:38)
[2019-07-14] MEDS ORDERED: FAMOTIDINE 20 MG in SYRINGE 3 ML IV PRN (18:50)
[2019-07-14] MEDS: DOXEPIN HCL 25 MG CAPSULE PO SCH (20:31)
[2019-07-14] MEDS: PRAMIPEXOLE DIHYDROCHLO 0.25 MG TAB PO SCH (20:31)
[2019-07-14] MEDS: OLANZapine 20 MG TABLET PO SCH (20:32)
[2019-07-14] MEDS: DOXYCYCLINE HYCLATE 100 MG CAP PO SCH (20:37)
[2019-07-14] MEDS: HEPARIN SOD 5,000 UNIT/0.5 ML VIAL SQ SCH (20:38)
[2019-07-15] MEDS ORDERED: GUAIFENESIN/CODEINE 200MG/20MG 10ML UDC PO PRN
[2019-07-15] MEDS: INSULIN ASPART 100 UNITS/ML 3 ML PEN SC SCH ×5 (03:46→21:09)
[2019-07-15] MEDS: methylPREDNISolone 40 MG in SYRINGE 0 ML IV SCH ×3 (05:50→17:35)
[2019-07-15 06:25] LABS: Hematocrit (blood only) 37.6 % (37-47); Hemoglobin 12.3 g/dL (12.0-16.0); Mean Corpuscular Hemoglobin 30.8 pg (25-34); Mean Corpuscular Hgb Conc 32.7 g/dL (32-36); Mean Corpuscular Volume 94.2 fL (80-100); Mean Platelet Volume 9.4 fL (7.4-10.4); Platelet Count 268 K/uL (130-400); RDW Coefficient of Variation 15.8 % (11.5-14.5); RDW Standard Deviation 54.9 fL (36.4-46.3); Red Blood Count 3.99 M/uL (4.2-5.4)
[2019-07-15] MEDS: HEPARIN SOD 5,000 UNIT/0.5 ML VIAL SQ SCH ×3 (06:35→21:13)
[2019-07-15] MEDS: LEVALBUTEROL HCL 1.25 MG/3 ML NEB NEB SCH ×4 (06:51→19:34)
[2019-07-15 06:52] LABS: BUN Creatinine Ratio 24.3 (10-20); Calcium 9.4 mg/dl (8.5-10.1); Creatinine Clr Calc Pharmacy 62.6 ml/min; Est GFR (African American) 58.7; Est GFR (Non-African American) 50.6; Potassium 4.7 mmol/L (3.5-5.1)
[2019-07-15] MEDS ORDERED: INSULIN HUMAN NPH SC ONE (07:30)
[2019-07-15 07:39] LABS: Estimated Average Glucose 154 mg/dl
[2019-07-15] MEDS ORDERED: INSULIN GLARGINE SOLOSTAR 100 UNITS/ML 3 ML PEN SC SCH ×2 (08:00→21:00)
[2019-07-15] MEDS: clonazePAM 1 MG TAB PO SCH ×2 (08:07→20:01)
[2019-07-15] MEDS: MoRPHine SULFATE 4 MG/ML 1 ML CARP\\VIAL IV PRN ×2 (08:07→19:39)
[2019-07-15] MEDS: DOXYCYCLINE HYCLATE 100 MG CAP PO SCH ×2 (08:11→21:12)
[2019-07-15] MEDS: GABAPENTIN 300 MG CAP PO SCH ×3 (08:12→21:12)
[2019-07-15] MEDS: ESCITALOPRAM OXALATE 20 MG TAB PO SCH (08:12)
[2019-07-15] MEDS: LISINOPRIL 10 MG TAB PO SCH (08:12)
[2019-07-15] MEDS ORDERED: COUGH DROP (SUGAR FREE) LOZ 24 LOZ/1 BOX BUCCAL ONE (08:47)
--- NOTE | 2019-07-15 10:02 | Pharmacy Report ---
Glycemic Control Consultation - Date of Service July 15, 2019 - Scope Scope: Glycemic Pharmacist consulted by Dr Cordova on 07/14/19 for glycemic control and to write orders per [facility] inpatient glycemic control protocol - Objective Weight: 113.3 kg Accuchecks BSG (last 24hrs): 07/14/19 07/14/19 07/14/19 11:35 16:36 16:38 Glucose POC Glucose 206 H 311 H* 310 H* 07/14/19 07/14/19 07/15/19 20:13 23:33 03:37 Glucose POC Glucose 294 H 243 H 243 H 07/15/19 07/15/19 06:02 07:40 Glucose 216 H POC Glucose 205 H Laboratory Data (last 24hrs): 07/15/19 06:02 Potassium 4.7 Carbon Dioxide 26 Anion Gap 7.0 Creatinine 1.11 D Est Cr Clr Drug Dosing 62.6 HbA1c: Hemoglobin A1c 7.0 % (4.5-5.6) H 07/15/19 06:02 - Recent Pertinent Medications Outpatient Anti-diabetic Regimen: * Tradjenta 5 mg PO daily * A1c = 7 % (07/15/19) Risk Factors for Insulin Resistance: * Steroids: Methylprednisolone 40 mg IV q6h * Infection: possible upper respiratory tract infection - receiving doxycycline * Diet: T2DM - Assessment & Plan Assessment & Plan: ASSESSMENT: * FLAKO is a 69 year-old female who presented to [facility] on 07/13 with chief complaint of shortness of breath * Currently being treated for suspected upper respiratory tract infection/COPD exacerbation * Methylprednisolone 40 mg IV q12h + doxycycline 100 mg PO BID * Pharmacy consulted on 07/14 for persistently elevated BSGs (most likely steroid-induced based on A1c of 7%) * Yesterday BSGs ranging 206-311 mg/dL * Patient received 80 units of insulin (32 of which were NPH) * Fasting BSG this morning is 205 mg/dL PLAN FOR INPATIENT GLYCEMIC CONTROL: * Pt is maintained on oral antidiabetic agents as an outpatient * Oral agents are not recommended for inpatient use d/t drug interactions, changing PO intake, and difficulty titrating for acute hyper/hypoglycemia. ADA recommends re-initiating outpatient oral agents 1-2 days prior to discharge if/when appropriate if they were held on admission. * Will hold oral agents for admission and utilize SQ basal bolus insulin regimen which is the recommended regimen for inpatient glycemic control. * Will initiate weight based insulin dosing for insulin jan patient and titrate based on BSG trends. * Basal insulin * Lantus 30 units given this morning * Utilize Lantus scale this evening * -If BSG 140 mg/dL or less - 10 units * -If BSG 141-200 mg/dL - 20 units * -If BSG 201 mg/dL or above - 30 units * Bolus insulin * NovoLog per scale ACHS or Q6hrs while NPO * Goal Range: Low 110 mg/dL - High 140 mg/dL * Correction Factor: 15 mg/dL/unit * Nutritional / Prandial insulin per carb ratio of 1 unit per 5 grams CHO consumed * Please note that the plan above was derived based on current level of insulin resistance and hospital stress. These recommendations are appropriate for inpatient admission only. Plan of care upon discharge will need to be reassessed to avoid potential outpatient hypo/hyperglycemia. Thank you.
[2019-07-15] MEDS ORDERED: PERFLUTREN LIPID MICROSPHERE (DEFINITY) IV ONE (10:16)
--- NOTE | 2019-07-15 14:02 | Hospitalist Progress Note ---
Date of Service July 15, 2019 Assessment & Plan (1) COPD exacerbation: Uncontrolled wheezing. Has been on Solumedrol 40mg IV q6h and nebulized bronchodilators. Clinically a lot better today Continues to have cough and shortness of breath on minimal exertion We will decrease the intravenous Solu-Medrol to every 12 hours Change Solu-Medrol to oral prednisone tomorrow at discharge We will get to do steps O2 saturation before discharge (2) Chest pain: Chest pressure with exertion for the past 3 months with risk factors for CAD. Has been complaining of chest tightness without any pain which is likely secondary to COPD exacerbation Serial cardiac enzymes and EKG with echo have been unremarkable No more chest pain and/or pressure as of this morning (3) RLS (restless legs syndrome): Cont home medications. (4) Obesity: (5) Bipolar disorder: Cont home medications (6) Diabetes mellitus, type II: Uncontrolled, A1C-7.0. Inpatient glucose uncontrolled as no carb coverage was ordered overnight, then when it was added, it was not seen and administered with her lunch. Prior records reflect that she is taking Tradjenta 5mg PO daily. We will continue outpatient regimen on discharge (7) DVT prophylaxis: Heparin (Lovenox considered to minimize shot burden but patient has latex allergy) Full Dispo-to home when medically stable. Has been getting PT and OT Advised increase ambulation To do steps O2 saturation tomorrow morning before discharge Subjective 07/15 The patient was seen and examined in medical telemetry unit She is obese and was admitted with exacerbation of asthma/COPD She has been feeling a lot better this morning Denies any significant shortness of breath and/or wheezing at rest She will need to have to do steps O2 saturation test before discharge Review of Systems Review of Systems: All systems reviewed and are unremarkable except as noted below Respiratory: + cough and + wheezing (No wheezing at rest); no dyspnea (At rest) Musculoskeletal: Denies any acute arthritis in any of the joints Physical Exam Physical Exam: Lying in bed comfortably Constitutional: well developed, well nourished and + obese; no acute distress and not ill appearing Eyes: PERRL, conjunctivae normal, anicteric sclerae ENMT: external ear and nose normal, oropharynx normal Neck: trachea midline, no thyromegaly Respiratory: normal respiratory effort; no respiratory distress (No distress at rest) Auscultation: + diminished lung sounds and + wheezes (Minimal wheezing bilaterally); no crackles Cardiovascular: Rate/Rhythm: regular rate and regular rhythm Heart Sounds: no murmur Gastrointestinal (Abdomen): Inspection/Auscultation: abdomen normal to inspection and normal bowel sounds Percussion/Palpation: abdomen soft; abdo men nontender and no guarding Musculoskeletal: No acute arthritis in any joints Neurologic: patellar DTR's 2+ bilat, sensation intact Results & Data Vital Signs (Past 12 Hours) Vital Signs Temp Pulse Pulse Resp BP Pulse Ox 07/15/19 11:49 36.7 C 102 H 24 150/96 H 95 07/15/19 11:23 99 H 20 98 07/15/19 07:24 36.6 C 94 H 20 150/80 H 95 07/15/19 07:16 88 07/15/19 06:51 84 16 97 07/15/19 04:44 36.5 C 93 H 20 135/84 93 Laboratory Results Short CBC 07/15/19 Range/Units 06:02 WBC 18.80 H (4.8-10.8) K/uL Hgb 12.3 (12.0-16.0) g/dL Hct 37.6 (37-47) % Plt Count 268 (130-400) K/uL BMP 07/15/19 06:02 Sodium 137 Potassium 4.7 Chloride 104 Carbon Dioxide 26 BUN 27 H Creatinine 1.11 D Glucose 216 H Calcium 9.4 Medications Administered Current Inpatient Medications Buspirone HCl (Buspar) 5 mg PO DAILY [facility] Stop: 08/14/19 08:59 Last Admin: 07/15/19 08:11 Dose: 5 mg Documented by: Clonazepam (Klonopin) 1 mg PO BID [facility] Stop: 08/12/19 20:59 Last Admin: 07/15/19 08:07 Dose: 1 mg Documented by: Dextrose (Dextrose 50%) 25 - 50 ml IV UD PRN; Protocol PRN Reason: Hypoglycemia Protocol Stop: 08/12/19 19:17 Doxepin HCl (Sinequan) 25 mg PO HS [facility] Stop: 08/12/19 20:59 Last Admin: 07/14/19 20:31 Dose: 25 mg Documented by: Doxycycline Hyclate (Vibramycin) 100 mg PO BID [facility] Stop: 07/20/19 20:59 Last Admin: 07/15/19 08:11 Dose: 100 mg Documented by: Escitalopram Oxalate (Lexapro Tab) 20 mg PO QAM [facility] Stop: 08/13/19 08:59 Last Admin: 07/15/19 08:12 Dose: 20 mg Documented by: Gabapentin (Neurontin) 300 mg PO TID [facility] Stop: 08/12/19 20:59 Last Admin: 07/15/19 13:21 Dose: 300 mg Documented by: Glucagon (Glucagen) 1 mg SQ UD PRN; Protocol PRN Reason: Hypoglycemia Protocol Stop: 08/12/19 19:17 Glucose (Glucose 40%) 15 - 30 gm PO UD PRN; Protocol PRN Reason: Hypoglycemia Protocol Stop: 08/12/19 19:17 Glucose (Dex4 Glucose) 4 - 8 tabs PO UD PRN; Protocol PRN Reason: Hypoglycemia Protocol Stop: 08/12/19 19:17 Guaifenesin/Codeine Phosphate (Robitussin-Ac Sugar Free) 10 ml PO Q6H PRN PRN Reason: Cough Stop: 08/14/19 00:00 Heparin Sodium (Porcine) (Heparin Sodium (Porcine)) 5,000 units SQ Q8 [facility] Stop: 08/13/19 21:59 Last Admin: 07/15/19 13:21 Dose: 5,000 units Documented by: Famotidine 20 mg/ Syringe 5 mls @ 2.5 mls/min IV Q12H PRN PRN Reason: CHEST PAIN OR HEARTBURN Stop: 08/13/19 18:49 Methylprednisolone 40 mg/ (Syringe) 0.64 mls @ 1.5 mls/min IV Q12H [facility] Stop: 08/14/19 17:59 Insulin Aspart (Novolog Flexpen) 0 units SC ACHS [facility] Stop: 08/12/19 20:59 Last Admin: 07/15/19 13:10 Dose: 18 units Documented by: Insulin Glargine (Lantus Solostar Pen) 0 units SC HS [facility]; Protocol Stop: 07/15/19 21:01 Levalbuterol HCl (Xopenex 1.25mg/3ml Neb) 1.25 mg NEB QIDR [facility] Stop: 08/13/19 18:59 Last Admin: 07/15/19 11:23 Dose: 1.25 mg Documented by: Lisinopril (Zestril) 10 mg PO DAILY [facility] Stop: 08/13/19 08:59 Last Admin: 07/15/19 08:12 Dose: 10 mg Documented by: Miscellaneous (Carbohydrates For Hypoglycemia) 15 - 30 gm PO UD PRN PRN Reason: Hypoglycemia Protocol Stop: 08/12/19 19:17 Miscellaneous (Order Awaiting Action) 1 ea N/A QS [facility] Stop: 08/13/19 07:59 Last Admin: 07/15/19 08:13 Dose: Not Given Documented by: Miscellaneous Information (Consult Glycemic Management Pharmacy) 1 ea N/A UD PRN PRN Reason: Consult Stop: 08/13/19 17:34 Morphine Sulfate (Morphine Sulfate) 3 mg IV Q3H PRN PRN Reason: Pain Stop: 07/27/19 23:03 Last Admin: 07/15/19 08:07 Dose: 3 mg Documented by: Nitroglycerin (Nitrostat) 0.4 mg SL UD PRN PRN Reason: Chest Pain Stop: 08/13/19 17:59 Olanzapine (Zyprexa) 20 mg PO PM [facility] Stop: 08/12/19 20:59 Last Admin: 07/14/19 20:32 Dose: 20 mg Documented by: Pramipexole Dihydrochloride (Mirapex) 0.125 mg PO PM [facility] Stop: 08/12/19 20:59 Last Admin: 07/14/19 20:31 Dose: 0.125 mg Documented by: (1) Chest pain Chest pain type: unspecified Qualified Code(s): R07.9 - Chest pain, unspecified
[2019-07-15] MEDS: PRAMIPEXOLE DIHYDROCHLO 0.25 MG TAB PO SCH (21:10)
[2019-07-15] MEDS: DOXEPIN HCL 25 MG CAPSULE PO SCH (21:12)
[2019-07-15] MEDS: OLANZapine 20 MG TABLET PO SCH (21:13)
[2019-07-16] MEDS ORDERED: NURSING DECISION MEDICATION ONE (00:14)
[2019-07-16] MEDS: MoRPHine SULFATE 4 MG/ML 1 ML CARP\\VIAL IV PRN ×2 (00:20→06:09)
[2019-07-16] MEDS ORDERED: COUGH DROP (SUGAR FREE) LOZ 24 LOZ/1 BOX BUCCAL PRN (00:44)
[2019-07-16] MEDS ORDERED: POLYETHYLENE (MIRALAX) 17 GM PACK PO PRN (02:34)
[2019-07-16] MEDS ORDERED: DOCUSATE SODIUM/SENNA 50/8.6MG TAB PO SCH (02:35)
[2019-07-16] MEDS: methylPREDNISolone 40 MG in SYRINGE 0 ML IV SCH (06:09)
[2019-07-16] MEDS: HEPARIN SOD 5,000 UNIT/0.5 ML VIAL SQ SCH (06:13)
[2019-07-16] MEDS: LEVALBUTEROL HCL 1.25 MG/3 ML NEB NEB SCH ×2 (07:12→11:13)
[2019-07-16] MEDS ORDERED: INSULIN GLARGINE SOLOSTAR 100 UNITS/ML 3 ML PEN SC SCH (09:00)
[2019-07-16] MEDS: INSULIN ASPART 100 UNITS/ML 3 ML PEN SC SCH ×2 (09:05→12:30)
[2019-07-16] MEDS: clonazePAM 1 MG TAB PO SCH (09:14)
[2019-07-16] MEDS: ESCITALOPRAM OXALATE 20 MG TAB PO SCH (09:14)
[2019-07-16] MEDS: GABAPENTIN 300 MG CAP PO SCH (09:15)
[2019-07-16] MEDS: DOXYCYCLINE HYCLATE 100 MG CAP PO SCH (09:15)
[2019-07-16] MEDS: LISINOPRIL 10 MG TAB PO SCH (09:15)
[2019-07-16] MEDS ORDERED: FAMOTIDINE 20 MG TAB PO PRN (10:45)
--- NOTE | 2019-07-16 11:14 | Pharmacy Report ---
Pharmacy Glycemic Short Note 2 - Date of Service July 16, 2019 - Glycemic Short BSG Results (Last 24 hours): 07/15/19 07/15/19 07/15/19 11:37 16:39 21:08 POC Glucose 232 H 138 H 223 H Outpatient Anti-diabetic Regimen: * Tradjenta 5 mg PO daily (initiated within the past 3 months or so per patient) * A1c = 7 % (07/15/19) ASSESSMENT: * FLAKO is a 69 year-old female who presented to [facility] on 07/13 with chief complaint of shortness of breath * Currently being treated for suspected upper respiratory tract infection/COPD exacerbation * Methylprednisolone 40 mg IV q12h + doxycycline 100 mg PO BID * Pharmacy consulted on 07/14 for persistently elevated BSGs (most likely steroid-induced based on A1c of 7%) * Yesterday BSGs ranging 138-243 mg/dL * Patient received 111 units of insulin (60 of which were basal) * Morning BSG today of 263 mg/dL is unreliable, as it was taken after breakfast * Likely discharge today with prednisone taper PLAN FOR INPATIENT GLYCEMIC CONTROL: * Will initiate metformin 500 mg PO x 1 with lunch today (plan is for patient to be discharged with it) * Basal insulin * Lantus 30 units this morning (discharge planned for this afternoon) * Bolus insulin - decrease CF/CR with initiation of metformin 500 mg PO daily * NovoLog per scale ACHS or Q6hrs while NPO * Goal Range: Low 110 mg/dL - High 140 mg/dL * Correction Factor: 20 mg/dL/unit * Nutritional / Prandial insulin per carb ratio of 1 unit per 7 grams CHO consumed PLAN FOR DISCHARGE: * Patient's diabetes is well-controlled with current regimen based on A1c of 7%. Continue Tradjenta 5 mg PO daily. * Recommend initiation of metformin 500 mg PO daily with largest meal of day while on steroid taper, as patient's BSGs have not been well-controlled during hospitalization due to steroid-induced hyperglycemia. * Reasonable for patient to continue with metformin beyond steroid taper, as it is first-line for type 2 diabetes * Patient agreeable to initiation of metformin 500 mg PO daily with largest meal of day * Outpatient provider to assess need for metformin beyond steroid taper and titrate further if indicated
[2019-07-16] MEDS ORDERED: METFORMIN HCL 500 MG TAB PO SCH (12:00)
--- NOTE | 2019-07-16 12:01 | Hospitalist Progress Note ---
Date of Service July 16, 2019 Assessment & Plan (1) COPD exacerbation: Uncontrolled wheezing. Has been on Solumedrol 40mg IV q6h and nebulized bronchodilators. Clinically a lot better today Continues to have cough and shortness of breath on minimal exertion We will decrease the intravenous Solu-Medrol to every 12 hours Change Solu-Medrol to oral prednisone tomorrow at discharge Doing steps O2 saturation test performed; she does not qualify for any oxygen Oral prednisone has been started and that will be tapered according (2) Chest pain: Chest pressure with exertion for the past 3 months with risk factors for CAD. Has been complaining of chest tightness without any pain which is likely secondary to COPD exacerbation Serial cardiac enzymes and EKG with echo have been unremarkable No more chest pain and/or pressure as of this morning Denies any more chest pain (3) RLS (restless legs syndrome): Cont home medications. (4) Obesity: (5) Bipolar disorder: Cont home medications (6) Diabetes mellitus, type II: Uncontrolled, A1C-7.0. Inpatient glucose uncontrolled as no carb coverage was ordered overnight, then when it was added, it was not seen and administered with her lunch. Prior records reflect that she is taking Tradjenta 5mg PO daily. We will continue outpatient regimen on discharge Will need to metformin 500 mg daily as long as she has will be on prednisone (7) DVT prophylaxis: Heparin (Lovenox considered to minimize shot burden but patient has latex allergy) Full Dispo-to home when medically stable. Has been getting PT and OT Advised increase ambulation Discharge home today without oxygen Subjective 07/15 The patient was seen and examined in medical telemetry unit She is obese and was admitted with exacerbation of asthma/COPD She has been feeling a lot better this morning Denies any significant shortness of breath and/or wheezing at rest She will need to have to do steps O2 saturation test before discharge 07/16 The patient was seen and examined in the medical floor She has been complaining of some wheezing and shortness of breath on exertion Denies any chest pain and/or palpitation She will have to do steps O2 saturation test before discharge today Review of Systems Review of Systems: All systems reviewed and are unremarkable except as noted below Constitutional: as per Subjective / HPI Respiratory: + cough and + wheezing (No wheezing at rest); no dyspnea (At r est) Musculoskeletal: Denies any acute arthritis in any of the joints Physical Exam Constitutional: well developed, well nourished and + obese; no acute distress and not ill appearing Eyes: PERRL, conjunctivae normal, anicteric sclerae ENMT: external ear and nose normal, oropharynx normal Neck: trachea midline, no thyromegaly Respiratory: normal respiratory effort; no respiratory distress (No distress at rest) Auscultation: + diminished lung sounds and + wheezes (Minimal wheezing bilaterally); no crackles Cardiovascular: Rate/Rhythm: regular rate and regular rhythm Heart Sounds: no murmur Gastrointestinal (Abdomen): Inspection/Auscultation: abdomen normal to inspection and normal bowel sounds Percussion/Palpation: abdomen soft; abdome n nontender and no guarding Neurologic: patellar DTR's 2+ bilat, sensation intact Results & Data Vital Signs (Past 12 Hours) Vital Signs Temp Pulse Pulse Pulse Pulse Resp Resp 07/16/19 11:14 103 H 19 07/16/19 08:00 77 07/16/19 07:45 105 H 103 H 22 07/16/19 07:32 36.5 C 78 20 07/16/19 07:13 81 18 07/16/19 03:56 36.5 C 93 H 18 07/16/19 00:48 07/16/19 00:15 107 H 07/15/19 23:59 36.5 C 92 H 19 Resp BP BP Pulse Ox Pulse Ox Pulse Ox 07/16/19 11:14 96 07/16/19 08:00 07/16/19 07:45 18 98 96 07/16/19 07:32 150/100 H 163/109 H 91 07/16/19 07:13 96 07/16/19 03:56 165/97 H 92 07/16/19 00:48 150/86 H 07/16/19 00:15 07/15/19 23:59 184/96 H 94 Medications Administered Current Inpatient Medications Buspirone HCl (Buspar) 5 mg PO DAILY [facility] Stop: 08/14/19 08:59 Last Admin: 07/16/19 09:14 Dose: 5 mg Documented by: Clonazepam (Klonopin) 1 mg PO BID [facility] Stop: 08/12/19 20:59 Last Admin: 07/16/19 09:14 Dose: 1 mg Documented by: Dextrose (Dextrose 50%) 25 - 50 ml IV UD PRN; Protocol PRN Reason: Hypoglycemia Protocol Stop: 08/12/19 19:17 Doxepin HCl (Sinequan) 25 mg PO HS [facility] Stop: 08/12/19 20:59 Last Admin: 07/15/19 21:12 Dose: 25 mg Documented by: Doxycycline Hyclate (Vibramycin) 100 mg PO BID [facility] Stop: 07/20/19 20:59 Last Admin: 07/16/19 09:15 Dose: 100 mg Documented by: Escitalopram Oxalate (Lexapro Tab) 20 mg PO QAM [facility] Stop: 08/13/19 08:59 Last Admin: 07/16/19 09:14 Dose: 20 mg Documented by: Famotidine (Pepcid) 20 mg PO Q12H PRN PRN Reason: CHEST PAIN OR HEARTBURN Stop: 08/15/19 10:44 Gabapentin (Neurontin) 300 mg PO TID [facility] Stop: 08/12/19 20:59 Last Admin: 07/16/19 09:15 Dose: 300 mg Documented by: Glucagon (Glucagen) 1 mg SQ UD PRN; Protocol PRN Reason: Hypoglycemia Protocol Stop: 08/12/19 19:17 Glucose (Glucose 40%) 15 - 30 gm PO UD PRN; Protocol PRN Reason: Hypoglycemia Protocol Stop: 08/12/19 19:17 Glucose (Dex4 Glucose) 4 - 8 tabs PO UD PRN; Protocol PRN Reason: Hypoglycemia Protocol Stop: 08/12/19 19:17 Guaifenesin/Codeine Phosphate (Robitussin-Ac Sugar Free) 10 ml PO Q6H PRN PRN Reason: Cough Stop: 08/14/19 00:00 Last Admin: 07/15/19 16:01 Dose: 10 ml Documented by: Heparin Sodium (Porcine) (Heparin Sodium (Porcine)) 5,000 units SQ Q8 [facility] Stop: 08/13/19 21:59 Last Admin: 07/16/19 06:13 Dose: 5,000 units Documented by: Famotidine 20 mg/ Syringe 5 mls @ 2.5 mls/min IV Q12H PRN PRN Reason: CHEST PAIN OR HEARTBURN Stop: 08/13/19 18:49 Methylprednisolone 40 mg/ (Syringe) 0.64 mls @ 1.5 mls/min IV Q12H [facility] Stop: 08/14/19 17:59 Last Admin: 07/16/19 06:09 Dose: 1.5 mls/min Documented by: Insulin Aspart (Novolog Flexpen) 0 units SC ACHS [facility] Stop: 08/12/19 20:59 Last Admin: 07/16/19 09:05 Dose: 8 units Documented by: Levalbuterol HCl (Xopenex 1.25mg/3ml Neb) 1.25 mg NEB QIDR [facility] Stop: 08/13/19 18:59 Last Admin: 07/16/19 11:13 Dose: 1.25 mg Documented by: Lisinopril (Zestril) 10 mg PO DAILY [facility] Stop: 08/13/19 08:59 Last Admin: 07/16/19 09:15 Dose: 10 mg Documented by: Menthol (Nice) 1 lucas BUCCAL PRN PRN PRN Reason: Cough Stop: 08/15/19 00:43 Metformin HCl (Glucophage) 500 mg PO TODAY@1200 [facility] Stop: 07/16/19 12:01 Miscellaneous (Carbohydrates For Hypoglycemia) 15 - 30 gm PO UD PRN PRN Reason: Hypoglycemia Protocol Stop: 08/12/19 19:17 Miscellaneous (Order Awaiting Action) 1 ea N/A QS [facility] Stop: 08/13/19 07:59 Last Admin: 07/16/19 09:06 Dose: Not Given Documented by: Miscellaneous Information (Consult Glycemic Management Pharmacy) 1 ea N/A UD PRN PRN Reason: Consult Stop: 08/13/19 17:34 Morphine Sulfate (Morphine Sulfate) 3 mg IV Q3H PRN PRN Reason: Pain Stop: 07/27/19 23:03 Last Admin: 07/16/19 06:09 Dose: 3 mg Documented by: Nitroglycerin (Nitrostat) 0.4 mg SL UD PRN PRN Reason: Chest Pain Stop: 08/13/19 17:59 Olanzapine (Zyprexa) 20 mg PO PM [facility] Stop: 08/12/19 20:59 Last Admin: 07/15/19 21:13 Dose: 20 mg Documented by: Polyethylene Glycol (Miralax Powder Packet) 17 gm PO DAILY PRN PRN Reason: Constipation Stop: 08/15/19 02:33 Last Admin: 07/16/19 09:13 Dose: 17 gm Documented by: Pramipexole Dihydrochloride (Mirapex) 0.125 mg PO PM [facility] Stop: 08/12/19 20:59 Last Admin: 07/15/19 21:10 Dose: 0.125 mg Documented by: Senna/Docusate Sodium (Senokot S) 1 tab PO QAM [facility] Stop: 08/15/19 02:34 Last Admin: 07/16/19 04:11 Dose: 1 tab Documented by: (1) Chest pain Chest pain type: unspecified Qualified Code(s): R07.9 - Chest pain, unspecified
[2019-07-16] MEDS ORDERED: IPRATROPIUM BROMIDE/ALBUTEROL respimat INH INH PRN (12:52)
--- NOTE | 2019-07-17 07:22 | Discharge Summary ---
Date of Service July 17, 2019 Admission HPI Per Admitting Provider This is a 69 year old Female patient who presents to emergency room with respiratory symptoms and chest pressure for 3 days. Patient has been having cough and shortness of breath. In the ED patient had wheezing. Chest X Ray did not find evidence of pneumonia. Influenza swab is negative. Patient when asked on review of systems reports chest pressure that correlated when coughing symptoms began. Patient did not have recorded fever temperature. She did feel subjectively more warm when at home but did not take her temperature. Patient has been living with her sister and patient's home medications were verified wit h phone call to [facility] [phone] Patient denies abdominal pain or vomiting or problems with urination or with bowel movements. Patient denies dizziness or lightheadedness. Patient denies problems with walking at home. Primary Care Provider: Cali Crews, DO Admission Exam Per Admitting Provider Constitutional: cooperative Eyes: PERRL, conjunctivae normal, anicteric sclerae EOM intact bilaterally ENMT: external ear and nose normal, oropharynx normal Neck: normal visual inspection Respiratory: normal respiratory effort and + cough Auscultation: + wheezes Cardiovascular: Rate/Rhythm: regular rate Gastrointestinal (Abdomen): normal bowel sounds, soft, nontender, no hepatosplenomegaly Musculoskeletal: Head/Neck/Chest: normocephalic and head atraumatic Neurologic: PERRL, EOMI, accommodation nl, no face palsy, no dysarthria CN's II-XI intact bilaterally Psychiatric: A+Ox3, euthymic affect Principal Diagnosis COPD exacerbation, chest pressure/pain likely noncardiac, type 2 diabetes, bipolar disorder Discharge Exam Constitutional well developed, well nourished and + obese; no acute distress and not ill appearing Eyes PERRL, conjunctivae normal, anicteric sclerae ENMT external ear and nose normal, oropharynx normal Neck trachea midline, no thyromegaly Respiratory normal respiratory effort; no respiratory distress (No distress at rest) Auscultation: + diminished lung sounds and + wheezes (Minimal wheezing bilaterally); no crackles Cardiovascular Rate/Rhythm: regular rate and regular rhythm Heart Sounds: no murmur Gastrointestinal (Abdomen) Inspection/Auscultation: abdomen normal to inspection and normal bowel sounds Percussion/Palpation: abdomen soft; abdomen nontender and no guarding Neurologic patellar DTR's 2+ bilat, sensation intact Discharge Data Allergies Allergy/AdvReac Type Severity Reaction Status Date / Time latex Allergy Unknown rash Verified 07/13/19 17:40 Penicillins Allergy Unknown Verified 07/13/19 17:40 Consultations 07/13/19 18:38 ED Decision to Admit Stat 07/13/19 19:20 Consult Case Management - Discharge Planning Routine Hospital Course (1) COPD exacerbation: Uncontrolled wheezing. Has been on Solumedrol 40mg IV q6h and nebulized bronchodilators. Clinically a lot better today Continues to have cough and shortness of breath on minimal exertion We will decrease the intravenous Solu-Medrol to every 12 hours Change Solu-Medrol to oral prednisone tomorrow at discharge Doing steps O2 saturation test performed; she does not qualify for any oxygen Oral prednisone has been started and that will be tapered according (2) Chest pain: Chest pressure with exertion for the past 3 months with risk factors for CAD. Has been complaining of chest tightness without any pain which is likely secondary to COPD exacerbation Serial cardiac enzymes and EKG with echo have been unremarkable No more chest pain and/or pressure as of this morning Denies any more chest pain (3) RLS (restless legs syndrome): Cont home medications. (4) Obesity: (5) Bipolar disorder: Cont home medications (6) Diabetes mellitus, type II: Uncontrolled, A1C-7.0. Inpatient glucose uncontrolled as no carb coverage was ordered overnight, then when it was added, it was not seen and administered with her lunch. Prior records reflect that she is taking Tradjenta 5mg PO daily. We will continue outpatient regimen on discharge Will need to metformin 500 mg daily as long as she has will be on prednisone (7) DVT prophylaxis: Heparin (Lovenox considered to minimize shot burden but patient has latex allergy) Full Dispo-to home when medically stable. Has been getting PT and OT Advised increase ambulation Discharge home today without oxygen Total Time Total Time Spent Total Time Spent (In Minutes): 35 minutes Total Time Includes: Examination of the Patient, Discharge Planning, Medication Reconciliation and Communication With Other Providers Discharge Plan Discharge Items Patient Disposition: Home - Self-Care Reason For Visit: ASTHMA EXACERBATION VS UPPER RESPIRATORY INFECTION Discharge Diagnosis: COPD exacerbation, chest pressure/pain likely noncardiac, type 2 diabetes, bipolar disorder Condition on Discharge: Fair Activity: Resume your previous activity Non-emergency contact: Primary Care Provider Call non-emergency contact if: you have any medication questions and your symptoms worsen Follow-up/Referrals: Cali Crews DO [Primary Care Provider] - (Please make an appointment with your primary care physician in 1 week) Diet: Carb Consistent or DM2 Addtl Attending Provider Instructions: New medications Pulmicort inhaler Albuterol inhaler has been changed to Combivent inhaler Metformin 500 mg daily as long as she will be on oral prednisone We need to reevaluate if she needs to continue metformin Pending Studies at Discharge: No Stand-Alone Forms: My [facility] [employer], Smoking Cessation Medications and DC Order Prescriptions: New metformin [Glucophage] 500 mg Tablet 500 mg PO DAILY@1700 30 Days Qty: 30 RF: 0 doxycycline hyclate 100 mg Capsule 100 mg PO BID 7 Days Qty: 14 RF: 0 Flovent HFA 110 mcg/actuation HFA aerosol inhaler 2 puffs INH BID Qty: 12 RF: 0 Combivent Respimat 20-100 mcg/actuation mist 1 puffs INH Q6H PRN (Reason: wheezing) Qty: 4 RF: 0 prednisone 10 mg tablet 10 mg PO UD Qty: 30 RF: 0 Continued doxepin 25 mg capsule 25 mg PO HS RF: 0 escitalopram oxalate 20 mg tablet 20 mg PO QAM RF: 0 Tradjenta 5 mg tablet 5 mg PO DAILY RF: 0 clonazepam [Klonopin] 1 mg tablet 1 mg PO BID RF: 0 gabapentin [Neurontin] 300 mg capsule 300 mg PO TID RF: 0 olanzapine [Zyprexa] 20 mg Tablet 20 mg PO PM RF: 0 diclofenac sodium [Voltaren] 1 % Gel 2 g TOPICAL QID RF: 0 Austedo 12 mg Tablet 12 mg PO HS RF: 0 pramipexole 0.125 mg Tablet 0.125 mg PO PM RF: 0 lisinopril 10 mg Tablet 10 mg PO DAILY RF: 0 buspirone 5 mg tablet 5 mg PO DAILY RF: 0 clonidine HCl 0.1 mg tablet 0.1 PO BID RF: 0 Discontinued albuterol sulfate [Ventolin HFA] 90 mcg/actuation Hfa Aerosol Inhaler 2 puff INHALATION Q6H PRN (Reason: Shortness Of Breath Or Wheezing) RF: 0 Discharge Orders: Discharge Order (Routine); Ordered 07/16/19 Ordered By: Lev García Admission Data Admit Date/Time: 07/13/19 20:05 Attending Provider: Lev García Admit Provider: Larry Dinh Primary Care Provider: Cali Crews Other Providers: Larry Dinh ; Nalini Cordova Other Interventions: Discharge Summary Assessment (RN) Last Done: 07/16/19 13:38 DC Date/Time DO NOT enter until pt leaves facility: 07/16/19 15:17
[2019-07-17] MEDS ORDERED: METFORMIN HCL 500 MG TAB PO SCH (17:00)
== END 2019-07-16 15:17 | disposition home or self-care (01) | DRG 192 ==
LOC: ED 16:19 → SUATTDRO 20:05 → 2N 20:05

== ENCOUNTER 2024-12-06 12:34 | Inpatient (IN) ==
--- NOTE | 2024-12-06 13:31 | XRay Report ---
XR chest 1V portable HISTORY: 74 years-old Female weakness COMPARISON: 07/13/2019 TECHNIQUE: AP view of the chest FINDINGS: Right shoulder arthroplasty. Bones appear grossly intact. Cardiac silhouette is enlarged. Gaseous dis tention of the hepatic flexure redemonstrated. No pneumothorax, pleural effusion, airspace consolidat ion or pulmonary edema. Unchanged right hemidiaphragmatic elevation. IMPRESSION: 1. No acute process. 2. Chronic findings as above. ACT 112: Negative or not required by law. The above report was generated using voice recognition software. It may contain grammatical, syntax o r spelling errors. Electronically signed by: Vasquez Hutton M.D. 12/06/2024 1:28 PM
[2024-12-06 13:34] LABS: Basophils # (auto) 0.07 K/uL (0.00-0.20); Basophils % (auto) 0.8 %; Eosinophils # (auto) 0.33 K/uL (0.00-0.50); Eosinophils % (auto) 3.9 %; Hematocrit (blood only) 40.9 % (37.0-47.0); Hemoglobin 13.9 g/dl (12.0-16.0); Immature Granulocytes # (auto) 0.02 K/uL (0.01-0.20); Immature Granulocytes % (auto) 0.2 %; Lymphocytes # (auto) 2.12 K/uL (1.20-3.40); Lymphocytes % (auto) 24.9 %; Mean Corpuscular Volume 91.3 fL (80.0-100.0); Mean Platelet Volume 9.3 fL (9.4-12.4); Monocytes # (auto) 0.56 K/uL (0.11-0.59); Monocytes % (auto) 6.6 %; Neutrophils # (auto) 5.43 K/uL (1.40-6.50); Neutrophils % (auto) 63.6 %; Platelet Count 169 K/uL (130-400); RDW Coefficient of Variation 12.8 % (11.5-14.5); RDW Standard Deviation 42.4 fL (36.4-46.3); Red Blood Count 4.48 M/uL (4.20-5.40); White Blood Count 8.53 K/ul (4.8-10.8)
[2024-12-06 13:53] LABS: Appearance Urine Clear (Clear); Bacteria Urine Automated 3+ (None Seen); Bilirubin Urine Negative (Negative); Blood Urine Trace (Negative); Cast Urine Automated 0-2 /lpf (0-2); Color Urine Yellow; Glucose Urine UA Negative (Negative); Ketones Urine Trace (Negative); Leukocyte Esterase Urine 1+ (Negative); Nitrite Urine Negative (Negative); Protein Urine Trace (Negative); Specific Gravity Urine 1.021 (1.000-1.030); Urobilinogen Urine Negative (Negative); pH Urine 5.5 (4.5-7.5)
--- NOTE | 2024-12-06 13:55 | CT Scan Report ---
CT SCAN OF THE BRAIN WITHOUT IV CONTRAST CLINICAL HISTORY: Altered mental status. COMPARISON STUDY: MRI of the brain April 23, 2019. Head CT May 12, 2019. TECHNIQUE: Unenhanced axial CT scan of the brain was performed from the vertex to the skull base. A dose lowering technique was utilized adhering to the principles of ALARA. CT DOSE: 625.8 mGy.cm FINDINGS: Brain parenchyma: No acute intracranial hemorrhage, midline shift or mass effect is present. Wood-whi te matter differentiation is preserved. There are no extra-axial fluid collections. There are no find ings to suggest acute dural sinus thrombosis or acute territorial infarct. 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 A suspected old infarct within the right cerebell ar hemisphere was also present on prior exam. A 1.8 cm hypodensity within the right occipital lobe on image 17 of 32 is new since prior exam. White matter hypodensities favor small vessel disease. Ventricles, sulci, cisterns: There is no hydrocephalus. The basal cisterns are patent. Calvarium: Unremarkable. Sinuses and mastoids: The visualized paranasal sinuses are clear. The mastoid air cells are well pneu matized. Orbits: The bony orbits are grossly intact. IMPRESSION: 1. No acute intracranial findings. 2. 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, as described above. ACT 112: Negative or not required by law. Electronically signed by: James Maloney M.D. 12/06/2024 1:53 PM
[2024-12-06 13:59] LABS: Albumin Globulin Ratio 1.5 (0.9-2); Albumin Level 3.9 gm/dl (3.4-5.0); BUN Creatinine Ratio 16.7 (10-20); Bilirubin,Total 0.5 mg/dl (0.2-1.0); Calcium 9.4 mg/dl (8.6-10.3); Creatinine Clr Calc Pharmacy 51.1 ml/min; Globulin 2.6 gm/dl (2.5-4.0); Total Protein 6.5 gm/dl (6.0-8.3)
[2024-12-06 14:05] LABS: Troponin I High Sensitivity 3.9 pg/ml (0-14)
[2024-12-06 14:14] LABS: Thyroid Stimulating Hormone 4.049 uIu/ml (0.300-4.500)
[2024-12-06] MEDS: cefTRIAXone SODIUM 2,000 MG/50 ML BAG IV SCH (14:30)
[2024-12-06 14:47] LABS: Adenovirus PCR Not Detected (NotDetected); Bordetella parapertussis PCR Not Detected (NotDetected); Bordetella pertussis PCR Not Detected (NotDetected); Chlamydia pneumoniae PCR Not Detected (NotDetected); Coronavirus 229E PCR Not Detected (NotDetected); Coronavirus CoV-2 (COVID19)PCR Not Detected (NotDetected); Coronavirus HKU1 PCR Not Detected (NotDetected); Coronavirus NL63 PCR Not Detected (NotDetected); Coronavirus OC43PCR Not Detected (NotDetected); Human Metapneumovirus PCR Not Detected (NotDetected); Influenza A PCR Not Detected (NotDetected); Influenza B PCR Not Detected (NotDetected); Mycoplasma pneumoniae PCR Not Detected (NotDetected); Parainfluenza Virus 1 PCR Not Detected (NotDetected); Parainfluenza Virus 2 PCR Not Detected (NotDetected); Parainfluenza Virus 3 PCR Not Detected (NotDetected); Parainfluenza Virus 4 PCR Not Detected (NotDetected); Respiratory Syncytial VirusPCR Not Detected (NotDetected); Rhinovirus/Enterovirus PCR Not Detected (NotDetected)
--- NOTE | 2024-12-06 15:32 | Emergency Department Note ---
Impression & Plan Cystitis, Altered mental status ED Provider Note NAME: SACHIN TRINIDAD AGE: 74 SEX: F : 1950 ARRIVES VIA: Ambulance INFORMANT: Patient, ED PROVIDER(S): Rosanne Hobbs MD CHIEF COMPLAINT: Confusion HPI: This is a 74-year-old man presented for confusion. Patient is currently unable to provide significant history she does not know who she is, where she is and other basic information but does not know what happened today. She states that she feels weak with pain in her extremities. She feels extremely weak. She reports no chest pain, shortness of breath, nausea, vomiting or diarrhea. No history of strokes. [facility]. Otherwise sister was called by nursing staff who states that patient is usually, alert oriented and independent. Patient does have an apartment by herself. ROS: See above HPI for pertinent positives & negatives. A total of 10 systems reviewed and were otherwise negative. PAST MEDICAL HISTORY: See Below PAST SURGICAL HISTORY: See Below FAMILY HISTORY: See Below SOCIAL HISTORY: See Below HOME MEDICATIONS: See Below ALLERGIES: See Below VITALS: See Below PHYSICAL EXAMINATION: General: resting comfortably in no acute distress Head: Normocephalic and atraumatic Eyes: Normal inspection, extraocular muscles intact Ear, nose, throat: Normal external exam Neck: Normal range of motion Respiratory: lungs clear to auscultation bilaterally Cardiovascular: Regular rate/rhythm, no murmur GI: soft, nontender, no guarding or rebound Extremities: nontender, moves all extremities Neuro: Awake, alert, conversant, no focal deficits, weakness in all extremities Skin: Warm, dry, and intact MEDICAL DECISION MAKING: This is a 74-year-old female presenting for confusion/weakness. Patient overall appears clinically well without signs of sepsis but she does appear confused. Cannot tell me what exactly is going on, how she got to the emergency department. She does appear confused without clear neurologic deficit. Will do workup to assess for UTI, upper respiratory infection. Will CT head to rule out -Bloodwork is reviewed showing no significant leukocytosis, anemia, electrolyte or creatinine abnormality -URI panel negative -Patient does have signs of UTI. Will give ceftriaxone at this time -CT of the head reveals no acute process -Chest Xray independently interpreted by me showing no pneumothorax, focal opacity, or pleural effusions. -With patient's current confusion, UTI, will admit for metabolic encephalopathy secondary to UTI Differential diagnosis: Stroke, metabolic encephalopathy, UTI, sepsis Diagnostics interpreted by me: ECG: ECG independently interpreted by me with normal sinus rhythm, rate of 56, left axis deviation, normal [place], normal QRS, normal QTc, no ST segment elevations consistent with STEMI criteria Cardiac Monitoring: An order was placed for continuous cardiac monitoring. The monitor shows a rate of 56 with sinus rhythm. Past Med/Surg History Problem List (Updated 12/06/24 @ 18:35 by Rosanne Hobbs MD) Cystitis (Acute) Encounter for pre-operative examination Stomach problems Acute encephalopathy (Acute) Respiratory failure with hypoxia (Acute) Altered mental status (Acute) Chest pain (Acute) Hypoxia (Acute) Lethargy (Acute) Syncopal episodes COPD exacerbation (Acute) Asthma exacerbation URI (upper respiratory infection) DVT prophylaxis Dyslipidemia (Chronic) RLS (restless legs syndrome) (Chronic) HTN (hypertension) (Chronic) Obesity (Chronic) CKD (chronic kidney disease), stage II (Chronic) Depression (Chronic) Bipolar disorder (Chronic) Diabetes mellitus, type II (Chronic) NIDDN Emphysema lung Medical History (Updated 12/06/24 @ 18:35 by Rosanne Hobbs MD) Chest pain, atypical With exertion or at rest History of encephalopathy Treated at [facility] and 05/2019 (see discharge summaries for details). Per neurology evaluation: "suspect her transient encephalopathy is likely multifactorial secondary to untreated JULIO C and polypharmacy (combination of Klonopin, Gabapentin, and clonidine is high risk for delirium), possible untreated obstructive sleep apnea also contributory History of colon polyps History of respiratory failure Syncope/hypoxia/AMS requiring intubation-- treated 04/2019 at [facility] with extensive workup, no definitive cause, possibly polypharmacy with untreated JULIO C. Osteoarthritis Chronic back pain GI bleed with ulcers Peptic ulcer disease hx Cancer [employer]-related --> JAS with BSO Anxiety COPD (chronic obstructive pulmonary disease) Using Combivent and Flovent, no albuterol Heart disease Surgical History History of lumbar puncture 04/2019 [facility] History of dilatation and curettage History of repair of rotator cuff right History of colonoscopy History of esophagogastroduodenoscopy (EGD) S/P gastric bypass H/O: hysterectomy JAS with BSO S/P appendectomy Status post bilateral knee replacements Hx of hernia repair bilateral inguinal hernia repair Family History (Updated 09/13/19 @ 10:10 by Alicia Avery RN) Father FHx: lung cancer smoker Mother FHx: stomach cancer Diabetes IDDM Type 2 Other Heart disease Hypertension No family history of adverse response to anesthesia Social History Smoking Status: Never smoker Second Hand Exposure: Yes (hx as a child); Do You Dip or Chew Tobacco: No; Hx Alcohol Use: No Hx Substance Use: No Preferred Language: Burmese Communication Ability: Effective Wireless 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 Required: No Beliefs That Will Affect Care: None Current Living Situation: Family Current Living Situation Comment: lives with sister Feels Safe at Home: Yes Assistive Devices: Denture - Upper, Denture - Lower, Glasses, Hearing Aid - Right, Nebulizer and Walker Allergies Allergies Allergy/AdvReac Type Severity Reaction Status Date / Time latex Allergy Unknown localized Verified 09/13/19 09:44 rash Penicillins Allergy Unknown "bottom Verified 09/13/19 09:44 gets sore" Home Meds Home Medications Medication Instructions Recorded Confirmed escitalopram oxalate 20 mg tablet 20 mg PO QAM 04/23/19 12/06/24 pramipexole 0.5 mg tablet 0.5 mg PO HS 09/13/19 12/06/24 buspirone 10 mg tablet 10 mg PO 2XD 12/06/24 12/06/24 clopidogrel 75 mg tablet 75 mg PO DAILY 12/06/24 12/06/24 lisinopril 10 mg tablet 10 mg PO DAILY 12/06/24 12/06/24 olanzapine 10 mg tablet 10 mg PO HS 12/06/24 12/06/24 rosuvastatin 20 mg tablet 20 mg PO DAILY 12/06/24 12/06/24 trazodone 150 mg tablet 300 mg PO HS 12/06/24 12/06/24 Results & Data (ED) Vital Signs Vital Signs - 24 hr 12/06/24 13:22 12/06/24 13:27 12/06/24 13:27 Temperature 36.6 C Temperature Source Oral Pulse Rate 60 55 L Pulse Rate [Apical] Respiratory Rate 12 Respiratory Effort / Characteristics Non-Labored Spontaneous Blood Pressure 149/90 H Blood Pressure [Right Arm] Blood Pressure Mean 109 Blood Pressure Mean [Right Arm] Blood Pressure Position Lying Blood Pressure Position [Right Arm] Pulse Oximetry 95 95 Oxygen Delivery Method Room Air Room Air Sepsis Recent Fever Within 48 Hours No Sepsis New/Unexplained Change in Mental Status Yes Sepsis Action Taken by Nursing No Action Required 12/06/24 13:27 12/06/24 13:27 12/06/24 15:00 Temperature Temperature Source Pulse Rate 55 L Pulse Rate [Apical] 55 L 56 L Respiratory Rate 16 12 16 Respiratory Effort / Characteristics Non-Labored Spontaneous Non-Labored Spontaneous Blood Pressure Blood Pressure [Right Arm] 149/90 H 145/88 H Blood Pressure Mean Blood Pressure Mean [Right Arm] 109 107 Blood Pressure Position Blood Pressure Position [Right Arm] Lying Pulse Oximetry 95 95 Oxygen Delivery Method Room Air Room Air Room Air Sepsis Recent Fever Within 48 Hours Sepsis New/Unexplained Change in Mental Status Sepsis Action Taken by Nursing Laboratory Data 12/06/24 12:47 12/06/24 12:47 Lab Results 12/06/24 12/06/24 12/06/24 Range/Units 12:47 12:52 13:20 WBC 8.53 (4.8-10.8) K/ul RBC 4.48 (4.20-5.40) M/uL Hgb 13.9 (12.0-16.0) g/dl Hct 40.9 (37.0-47.0) % MCV 91.3 (80.0-100.0) fL MCH 31.0 (25.0-34.0) pg MCHC 34.0 (32.0-36.0) g/dL RDW Std Deviation 42.4 (36.4-46.3) fL RDW Coeff of Diego 12.8 (11.5-14.5) % Plt Count 169 (130-400) K/uL MPV 9.3 L (9.4-12.4) fL Immature Gran % (Auto) 0.2 % Neut % (Auto) 63.6 % Lymph % (Auto) 24.9 % Real % (Auto) 6.6 % Eos % (Auto) 3.9 % Baso % (Auto) 0.8 % Neut # (Auto) 5.43 (1.40-6.50) K/uL Lymph # (Auto) 2.12 (1.20-3.40) K/uL Real # (Auto) 0.56 (0.11-0.59) K/uL Eos # (Auto) 0.33 (0.00-0.50) K/uL Baso # (Auto) 0.07 (0.00-0.20) K/uL Immature Gran # (Auto) 0.02 (0.01-0.20) K/uL Sodium 140 (136-145) mmol/L Potassium 4.0 (3.5-5.1) mmol/L Chloride 107 (98-107) mmol/L Carbon Dioxide 28 (21-32) mmol/L Anion Gap 5 (3-11) BUN 18 (6-23) mg/dl Creatinine 1.08 (0.6-1.2) mg/dl Est Cr Clr Drug Dosing 51.1 ml/min eGFR 53.90 BUN/Creatinine Ratio 16.7 (10-20) Glucose 99 (70-99(Fasting)) mg/dl POC Glucose 103 H (70-99) mg/dl Lactate (0.4-2.0) mmol/L Calcium 9.4 (8.6-10.3) mg/dl Total Bilirubin 0.5 (0.2-1.0) mg/dl AST 15 (13-39) U/L ALT 8 (7-52) U/L Alkaline Phosphatase 52 (34-104) U/L Troponin I High Sens 3.9 (0-14) pg/ml Total Protein 6.5 (6.0-8.3) gm/dl Albumin 3.9 (3.4-5.0) gm/dl Globulin 2.6 (2.5-4.0) gm/dl Albumin/Globulin Ratio 1.5 (0.9-2) TSH 4.049 (0.300-4.500) uIu/ml Urine Color Urine Appearance (Clear) Urine pH (4.5-7.5) Ur Specific [place] (1.000-1.030) Urine Protein (Negative) Urine Glucose (UA) (Negative) Urine Ketones (Negative) Urine Blood (Negative) Urine Nitrite (Negative) Urine Bilirubin (Negative) Urine Urobilinogen (Negative) Ur Leukocyte Esterase (Negative) Urine WBC (Auto) (0-5) /hpf Urine RBC (Auto) (0-2) /hpf U Hyaline Cast (Auto) (0-2) /lpf U Epithel Cells (Auto) (0-2) /hpf Urine Bacteria (Auto) (None Seen) Urine Opiates Screen (Neg) Ur Methadone, Qual (Neg) Urine Fentanyl Screen (Neg) Urine Barbiturates (Neg) Ur Phencyclidine (PCP) (Neg) U Amphetamin/Meth Scrn (Neg) MDMA (Ecstasy) Screen (Neg) U Benzodiazepines Scrn (Neg) Ur Cocaine Metabolite (Neg) U Marijuana (THC) Screen (Neg) Adenovirus (PCR) Not Detected (NotDetected) B. pertussis DNA (PCR) Not Detected (NotDetected) B.parapertussis DNA PCR Not Detected (NotDetected) C. pneumoniae DNA (PCR) Not Detected (NotDetected) Coronavirus OC43 (PCR) Not Detected (NotDetected) Coronavirus HKU1 (PCR) Not Detected (NotDetected) Coronavirus 229E (PCR) Not Detected (NotDetected) SARS-CoV-2 (PCR) Not Detected (NotDetected) Coronavirus NL63 (PCR) Not Detected (NotDetected) Human Metapneumovir PCR Not Detected (NotDetected) Influenza Type A (PCR) Not Detected (NotDetected) Influenza Type B (PCR) Not Detected (NotDetected) M. pneumoniae (PCR) Not Detected (NotDetected) Parainfluenza 1 (PCR) Not Detected (NotDetected) Parainfluenza 2 (PCR) Not Detected (NotDetected) Parainfluenza 3 (PCR) Not Detected (NotDetected) Parainfluenza 4 (PCR) Not Detected (NotDetected) RSV (PCR) Not Detected (NotDetected) Entero/Rhino (PCR) Not Detected (NotDetected) 12/06/24 12/06/24 12/06/24 Range/Units 13:42 14:18 Unknown WBC (4.8-10.8) K/ul RBC (4.20-5.40) M/uL Hgb (12.0-16.0) g/dl Hct (37.0-47.0) % MCV (80.0-100.0) fL MCH (25.0-34.0) pg MCHC (32.0-36.0) g/dL RDW Std Deviation (36.4-46.3) fL RDW Coeff of Diego (11.5-14.5) % Plt Count (130-400) K/uL MPV (9.4-12.4) fL Immature Gran % (Auto) % Neut % (Auto) % Lymph % (Auto) % Real % (Auto) % Eos % (Auto) % Baso % (Auto) % Neut # (Auto) (1.40-6.50) K/uL Lymph # (Auto) (1.20-3.40) K/uL Real # (Auto) (0.11-0.59) K/uL Eos # (Auto) (0.00-0.50) K/uL Baso # (Auto) (0.00-0.20) K/uL Immature Gran # (Auto) (0.01-0.20) K/uL Sodium (136-145) mmol/L Potassium (3.5-5.1) mmol/L Chloride (98-107) mmol/L Carbon Dioxide (21-32) mmol/L Anion Gap (3-11) BUN (6-23) mg/dl Creatinine (0.6-1.2) mg/dl Est Cr Clr Drug Dosing ml/min eGFR BUN/Creatinine Ratio (10-20) Glucose (70-99(Fasting)) mg/dl POC Glucose (70-99) mg/dl Lactate 1.1 (0.4-2.0) mmol/L Calcium (8.6-10.3) mg/dl Total Bilirubin (0.2-1.0) mg/dl AST (13-39) U/L ALT (7-52) U/L Alkaline Phosphatase (34-104) U/L Troponin I High Sens (0-14) pg/ml Total Protein (6.0-8.3) gm/dl Albumin (3.4-5.0) gm/dl Globulin (2.5-4.0) gm/dl Albumin/Globulin Ratio (0.9-2) TSH (0.300-4.500) uIu/ml Urine Color Yellow Urine Appearance Clear (Clear) Urine pH 5.5 (4.5-7.5) Ur Specific [place] 1.021 (1.000-1.030) Urine Protein Trace H (Negative) Urine Glucose (UA) Negative (Negative) Urine Ketones Trace H (Negative) Urine Blood Trace H (Negative) Urine Nitrite Negative (Negative) Urine Bilirubin Negative (Negative) Urine Urobilinogen Negative (Negative) Ur Leukocyte Esterase 1+ H (Negative) Urine WBC (Auto) 6-10 H (0-5) /hpf Urine RBC (Auto) 6-10 H (0-2) /hpf U Hyaline Cast (Auto) 0-2 (0-2) /lpf U Epithel Cells (Auto) 11-20 H (0-2) /hpf Urine Bacteria (Auto) 3+ H (None Seen) Urine Opiates Screen Neg (Neg) Ur Methadone, Qual Neg (Neg) Urine Fentanyl Screen Pos H (Neg) Urine Barbiturates Neg (Neg) Ur Phencyclidine (PCP) Neg (Neg) U Amphetamin/Meth Scrn Neg (Neg) MDMA (Ecstasy) Screen Pos H (Neg) U Benzodiazepines Scrn Neg (Neg) Ur Cocaine Metabolite Neg (Neg) U Marijuana (THC) Screen Neg (Neg) Adenovirus (PCR) (NotDetected) B. pertussis DNA (PCR) (NotDetected) B.parapertussis DNA PCR (NotDetected) C. pneumoniae DNA (PCR) (NotDetected) Coronavirus OC43 (PCR) (NotDetected) Coronavirus HKU1 (PCR) (NotDetected) Coronavirus 229E (PCR) (NotDetected) SARS-CoV-2 (PCR) (NotDetected) Coronavirus NL63 (PCR) (NotDetected) Human Metapneumovir PCR (NotDetected) Influenza Type A (PCR) (NotDetected) Influenza Type B (PCR) (NotDetected) M. pneumoniae (PCR) (NotDetected) Parainfluenza 1 (PCR) (NotDetected) Parainfluenza 2 (PCR) (NotDetected) Parainfluenza 3 (PCR) (NotDetected) Parainfluenza 4 (PCR) (NotDetected) RSV (PCR) (NotDetected) Entero/Rhino (PCR) (NotDetected) Administered Medications Ceftriaxone Sodium (Rocephin) 2,000 mg in 50 mls @ 100 mls/hr IV Q24H [facility] Stop: 12/08/24 14:14 Last Infusion: 12/06/24 15:10 Dose: Infused Documented By: Admin: 12/06/24 14:30 Dose: 100 mls/hr Documented By: FLORENTIN Imaging Data Radiologist's Impression: Chest X-Ray 12/06/24 13:00 XR chest 1V portable HISTORY: 74 years-old Female weakness COMPARISON: 07/13/2019 TECHNIQUE: AP view of the chest FINDINGS: Right shoulder arthroplasty. Bones appear grossly intact. Cardiac silhouette is enlarged. Gaseous distention of the hepatic flexure redemonstrated. No pneumothorax, pleural effusion, airspace consolidation or pulmonary edema. Unchanged right hemidiaphragmatic elevation. IMPRESSION: 1. No acute process. 2. Chronic findings as above. ACT 112: Negative or not required by law. The above report was generated using voice recognition software. It may contain grammatical, syntax or spelling errors. Electronically signed by: Vasquez Hutton M.D. 12/06/2024 1:[address] 12/06/24 13:01 CT SCAN OF THE BRAIN WITHOUT IV CONTRAST CLINICAL HISTORY: Altered mental status. COMPARISON STUDY: MRI of the brain April 23, 2019. Head CT May 12, 2019. TECHNIQUE: Unenhanced axial CT scan of the brain was performed from the vertex to the skull base. A dose lowering technique was utilized adhering to the principles of ALARA. CT DOSE: 625.8 mGy.cm FINDINGS: Brain parenchyma: No acute intracranial hemorrhage, midline shift or mass effect is present. Wood-white matter differentiation is preserved. There are no extra- axial fluid collections. There are no findings to suggest acute dural sinus thrombosis or acute territorial infarct. 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 A suspected old infarct within the right cerebellar hemisphere was also present on prior exam. A 1.8 cm hypodensity within the right occipital lobe on image 17 of 32 is new since prior exam. White matter hypodensities favor small vessel disease. Ventricles, sulci, cisterns: There is no hydrocephalus. The basal cisterns are patent. Calvarium: Unremarkable. Sinuses and mastoids: The visualized paranasal sinuses are clear. The mastoid air cells are well pneumatized. Orbits: The bony orbits are grossly intact. IMPRESSION: 1. No acute intracranial findings. 2. 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, as described above. ACT 112: Negative or not required by law. Electronically signed by: James Maloney M.D. 12/06/2024 1:53 PM Discharge Plan Visit Data Chief Complaint: Altered Mental Status ED Provider: Rosanne Hobbs Discharge Problem: Cystitis, Altered mental status Forms Stand Alone Forms: [facility] Prescriptions Prescriptions: No Action pramipexole 0.5 mg Tablet 0.5 mg PO HS Rx Instructions: [facility] pharmacy escitalopram oxalate 20 mg tablet 20 mg PO QAM Rx Instructions: per [facility] trazodone 150 mg tablet 300 mg PO HS Rx Instructions: [facility] olanzapine 10 mg tablet 10 mg PO HS Rx Instructions: [facility] buspirone 10 mg tablet 10 mg PO 2XD Rx Instructions: [facility] clopidogrel 75 mg tablet 75 mg PO DAILY Rx Instructions: [facility] rosuvastatin 20 mg tablet 20 mg PO DAILY Rx Instructions: [facility] lisinopril 10 mg tablet 10 mg PO DAILY Referrals Referrals: PCP,NO [Primary Care Provider] -
[2024-12-06 17:36] LABS: Amphetamines+Metham, Urine Neg (Neg); Barbiturates, Urine Neg (Neg); Benzodiazepine, Urine Neg (Neg); Cocaine, Urine Neg (Neg); Fentanyl, Urine Pos (Neg); MDMA (Ecstacy), Urine Pos (Neg); Marijuana, Urine Neg (Neg); Methadone, Urine Neg (Neg); Opiate, Urine Neg (Neg); Phencyclidine, Urine Neg (Neg)
--- NOTE | 2024-12-06 18:36 | CT Scan Report ---
EXAM: CT Cervical Spine Without Intravenous Contrast INDICATION: Pain in TECHNIQUE: Axial computed tomography images of the cervical spine without intravenous contrast. Sagittal and coronal reformatted images were created and reviewed. This CT exam was performed using one or more of the following dose reduction techniques: automated exposure control, adjustment of the mA and/or kV according to patient size, and/or use of iterative reconstruction technique. COMPARISON: 04/23/2019 FINDINGS: Limitations: None. Vertebrae: Stable cervical straightening with slight flexion at C4-C5. Stable prominent C4-C5 uncal spurring and moderate spondylosis C4-C7. There is stable degenerative grade 1 anterolisthesis of C4 on C5. Stable facet arthrosis at all levels. No fracture. Discs/spinal canal/neural foramina: Significant increase in moderate to marked disc space narrowing C4-C5, C5-C6 and C6-C7. There is mild ventral canal and moderate left foraminal stenosis C4-C5 and C5-C6. Soft tissues: No significant abnormality noted. Lung apices: No significant abnormality noted. IMPRESSION: Cervical degenerative changes without fracture. ACT 112: N/A Electronically signed by Yuliana Medina 12-06-2024 6:36 PM
--- NOTE | 2024-12-06 18:49 | History & Physical Report ---
Date of Service December 06, 2024 Assessment & Plan (1) Altered mental status: Plan: 74 year old female presenting to the emergency department with confusion and neck pain. Past medical history significant for Diabetes Type II, Hypertension, CKD Stage II, Hyperlipidemia, JULIO C, COPD, Esophageal reflux, Spinal stenosis, RLS, Insomnia, Parkinson's Major depressive disorder, and Bipolar disorder. Urine toxicology was ordered given the patient's altered mental status, physical exam, and history of opioid use. Treat UTI Maintain fentanyl patch as it provides baseline pain control per home routine (2) Neck pain: Plan: CT of Neck for complaints of neck pain with radicular symptoms. History of spinal stenosis with chronic pain management. Further intervention pending radiology report Medrol dose pack for now. Appreciate input from Pain team Consult placed. Will conservatively manage pain with topical and PRN acetaminophen as the patient currently has a Fentanyl patch. History of oxycodone use from prior injury. Pt/OT eval (3) Cystitis: Plan: Treat with Ceftriaxone for gram neg/pos coverage. Urine culture pending (4) HTN (hypertension): Plan: SBP elevated as high 160's with DBP 90's. Continue Lisinopril management and re-evaluate if patient's condition changes (5) DVT prophylaxis: Plan: Will initiate DVT prophylaxis with Enoxaparin- weight and renal functioning stable. (6) Diabetes mellitus, type II: Plan: History of DM Type II with elevated A1C in the past. Most recent A1C in 09/2024 5.4. Metformin has not been refilled at home. No further intervention needed at this time. Plan DVT Prophylaxis: Enoxaparin Daily HS Diso: Admit to LV Sensors I spent a total of 60 minutes coordinating, documenting and providing care for this patient excluding time spent in the performance of separately billed services or time spent by another provider/QHP. Patient seen and examined with Dr. Johnson. Please see addendum. History of Present Illness Primary Care Provider: NO PCP 74 year old female presenting to the emergency department with confusion and neck pain. Past medical history significant for Diabetes Type II, Hypertension, CKD Stage II, Hyperlipidemia, JULIO C, COPD, Esophageal reflux, Spinal stenosis, RLS, Insomnia, Parkinson's Major depressive disorder, and Bipolar disorder. She arrived to the emergency department via EMS, who was contacted by a medical professional concerned about the patient's level of confusion. 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 Chest Xray was unremarkable. Urine analysis showing leukocytes, blood, and bacteria. Urine culture is pending. No evidence of leukocytosis, hyper/hypoglycemia. Lactate levels normal. Urine tox positive f entanyl. Patient is a poor historian of her present illness, however, she reports neck, back, and bilateral leg pain that is "shooting down the middle of my back". She initially denied a recent fall, then reported she fell at home 2 weeks ago. It is unknown whether the fall was witnessed. Associated symptoms include vomiting once this morning upon awakening. When asked about urinary symptoms, she thinks she is urinating more than usual and is now wearing depends for urinary incontinence. She denies illnesses, fevers, weight changes, dizziness, chest pain, palpitations, abdominal pain, lower leg swelling. She reports having using a fentanyl patch for back pain but doesn't experience pain relief. Patient has no family or caregiver at the bedside. Patient's sister was contacted regarding the hospital visit and provided update on living situation and condition. Allergies Allergy/AdvReac Type Severity Reaction Status Date / Time latex Allergy Unknown localized Verified 09/13/19 09:44 rash Penicillins Allergy Unknown "bottom Verified 09/13/19 09:44 gets sore" Home Medications Medication Instructions Recorded Confirmed Type escitalopram oxalate 20 mg tablet 20 mg PO QAM 04/23/19 12/06/24 History pramipexole 0.5 mg tablet 0.5 mg PO HS 09/13/19 12/06/24 History buspirone 10 mg tablet 10 mg PO 2XD 12/06/24 12/06/24 History clopidogrel 75 mg tablet 75 mg PO DAILY 12/06/24 12/06/24 History lisinopril 10 mg tablet 10 mg PO DAILY 12/06/24 12/06/24 History olanzapine 10 mg tablet 10 mg PO HS 12/06/24 12/06/24 History rosuvastatin 20 mg tablet 20 mg PO DAILY 12/06/24 12/06/24 History trazodone 150 mg tablet 300 mg PO HS 12/06/24 12/06/24 History Past Med/Surg History Problem List (Updated 12/06/24 @ 18:48 by EMERSON Wilkins) Neck pain Cystitis (Acute) Encounter for pre-operative examination Stomach problems Acute encephalopathy (Acute) Respiratory failure with hypoxia (Acute) Altered mental status (Acute) Chest pain (Acute) Hypoxia (Acute) Lethargy (Acute) Syncopal episodes COPD exacerbation (Acute) Asthma exacerbation URI (upper respiratory infection) DVT prophylaxis Dyslipidemia (Chronic) RLS (restless legs syndrome) (Chronic) HTN (hypertension) (Chronic) Obesity (Chronic) CKD (chronic kidney disease), stage II (Chronic) Depression (Chronic) Bipolar disorder (Chronic) Diabetes mellitus, type II (Chronic) NIDDN Emphysema lung Medical History (Updated 12/06/24 @ 18:48 by EMERSON Wilkins) Chest pain, atypical With exertion or at rest History of encephalopathy Treated at [facility] and 05/2019 (see discharge summaries for details). Per neurology evaluation: "suspect her transient encephalopathy is likely multifactorial secondary to untreated JULIO C and polypharmacy (combination of Klonopin, Gabapentin, and clonidine is high risk for delirium), possible untreated obstructive sleep apnea also contributory History of colon polyps History of respiratory failure Syncope/hypoxia/AMS requiring intubation-- treated 04/2019 at [facility] with extensive workup, no definitive cause, possibly polypharmacy with untreated JULIO C. 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 Anxiety COPD (chronic obstructive pulmonary disease) Using Combivent and Flovent, no albuterol Heart disease Surgical History History of lumbar puncture 04/2019 [facility] History of dilatation and curettage History of repair of rotator cuff right History of colonoscopy History of esophagogastroduodenoscopy (EGD) S/P gastric bypass H/O: hysterectomy JAS with BSO S/P appendectomy Status post bilateral knee replacements Hx of hernia repair bilateral inguinal hernia repair Family History (Updated 09/13/19 @ 10:10 by Alicia Avery RN) Father FHx: lung cancer smoker Mother FHx: stomach cancer Diabetes IDDM Type 2 Other Heart disease Hypertension No family history of adverse response to anesthesia Social History Smoking Status: Never smoker Second Hand Exposure: No; Do You Dip or Chew Tobacco: No; Hx Alcohol Use: No Hx Substance Use: No Preferred Language: Panamanian Communication Ability: Effective Motor Racer Required: No Beliefs That Will Affect Care: None Current Living Situation: Family Current Living Situation Comment: lives with granddaughter Feels Safe at Home: Yes Assistive Devices: Walker Review of Systems Review of Systems: All systems reviewed & are unremarkable except as noted in HPI & below Respiratory: denies breathing difficulty, cough Integumentary: denies skin rashes, lesions Physical Exam Physical Exam: VITALS: Reviewed. WEIGHT/BMI reviewed. GEN: Healthy appearing, well-developed, NAD. PSYCH: Oriented to place only. Not oriented to current situation. Difficulty following directions. Unable to identify family names and phone numbers. Mood and affect appropriate. Noncombative and cooperative. HEENT -Head: NC/AT; -Eyes: Constricted pupils, 1-2mm, sluggi sh reaction to light, EOMI. No discharge or redness; -Ears: External ears are normal. Normal TMs. -Nose: Normal nares. -Mouth and throat: MMM. Normal gums, muc julio c, palate,. Dentures intact NECK: No masses. Guarding neck movement to left side. No evidence of nuchal rigidity CV: RRR, no m/r/g. LUNGS: CTAB, no w/r/c. ABD: Soft, NT/ND, NBS, no masses or organomegaly. : Wearing depends. SKIN: Warm, well perfused. No skin rashes or abnormal lesions. MSK: No deformities, Normal gait. EXT: No clubbing, cyanosis, or edema. NEURO: Muscle strength 3/5 to RUE, LUE, and LLE, 2/5 RLE. Normal tone. No focal deficits. Results & Data Results & Data Vital Signs (Past 12 Hours) Vital Signs Temp Pulse Pulse Resp BP BP Pulse Ox 12/06/24 15:00 56 L 16 145/88 H 12/06/24 13:27 55 L 12 95 12/06/24 13:27 55 L 16 149/90 H 95 12/06/24 13:27 95 12/06/24 13:27 36.6 C 55 L 12 149/90 H 95 12/06/24 13:22 60 O2 Del Method 12/06/24 15:00 Room Air 12/06/24 13:27 Room Air 12/06/24 13:27 Room Air 12/06/24 13:27 Room Air 12/06/24 13:27 Room Air 12/06/24 13:22 Laboratory Results I have independently reviewed and interpreted patient's admitting labs including CBC, CMP, urine, . Abnormal lab results 12/06/24 12/06/24 12/06/24 Range/Units 12:47 12:52 13:42 MPV 9.3 L (9.4-12.4) fL POC Glucose 103 H (70-99) mg/dl Urine Protein (Negative) Urine Ketones (Negative) Urine Blood (Negative) Ur Leukocyte Esterase (Negative) Urine WBC (Auto) (0-5) /hpf Urine RBC (Auto) (0-2) /hpf U Epithel Cells (Auto) (0-2) /hpf Urine Bacteria (Auto) (None Seen) Urine Fentanyl Screen Pos H (Neg) MDMA (Ecstasy) Screen Pos H (Neg) 12/06/24 Range/Units Unknown MPV (9.4-12.4) fL POC Glucose (70-99) mg/dl Urine Protein Trace H (Negative) Urine Ketones Trace H (Negative) Urine Blood Trace H (Negative) Ur Leukocyte Esterase 1+ H (Negative) Urine WBC (Auto) 6-10 H (0-5) /hpf Urine RBC (Auto) 6-10 H (0-2) /hpf U Epithel Cells (Auto) 11-20 H (0-2) /hpf Urine Bacteria (Auto) 3+ H (None Seen) Urine Fentanyl Screen (Neg) MDMA (Ecstasy) Screen (Neg) Diagnostic Findings I have personally reviewed radiology reports performed in the emergency room. Chest X-Ray 12/06/24 13:00 XR chest 1V portable HISTORY: 74 years-old Female weakness COMPARISON: 07/13/2019 TECHNIQUE: AP view of the chest FINDINGS: Right shoulder arthroplasty. Bones appear grossly intact. Cardiac silhouette is enlarged. Gaseous distention of the hepatic flexure redemonstrated. No pneumothorax, pleural effusion, airspace consolidation or pulmonary edema. Unchanged right hemidiaphragmatic elevation. IMPRESSION: 1. No acute process. 2. Chronic findings as above. ACT 112: Negative or not required by law. The above report was generated using voice recognition software. It may contain grammatical, syntax or spelling errors. Electronically signed by: Vasquez Hutton M.D. 12/06/2024 1:[address] 12/06/24 13:01 CT SCAN OF THE BRAIN WITHOUT IV CONTRAST CLINICAL HISTORY: Altered mental status. COMPARISON STUDY: MRI of the brain April 23, 2019. Head CT May 12, 2019. TECHNIQUE: Unenhanced axial CT scan of the brain was performed from the vertex to the skull base. A dose lowering technique was utilized adhering to the principles of ALARA. CT DOSE: 625.8 mGy.cm FINDINGS: Brain parenchyma: No acute intracranial hemorrhage, midline shift or mass effect is present. Wood-white matter differentiation is preserved. There are no extra- axial fluid collections. There are no findings to suggest acute dural sinus thrombosis or acute territorial infarct. 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 A suspected old infarct within the right cerebellar hemisphere was also present on prior exam. A 1.8 cm hypodensity within the right occipital lobe on image 17 of 32 is new since prior exam. White matter hypodensities favor small vessel disease. Ventricles, sulci, cisterns: There is no hydrocephalus. The basal cisterns are patent. Calvarium: Unremarkable. Sinuses and mastoids: The visualized paranasal sinuses are clear. The mastoid air cells are well pneumatized. Orbits: The bony orbits are grossly intact. IMPRESSION: 1. No acute intracranial findings. 2. 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, as described above. ACT 112: Negative or not required by law. Electronically signed by: James Maloney M.D. 12/06/2024 1:[address] 12/06/24 17:41 EXAM: CT Cervical Spine Without Intravenous Contrast INDICATION: Pain in TECHNIQUE: Axial computed tomography images of the cervical spine without intravenous contrast. Sagittal and coronal reformatted images were created and reviewed. This CT exam was performed using one or more of the following dose reduction techniques: automated exposure control, adjustment of the mA and/or kV according to patient size, and/or use of iterative reconstruction technique. COMPARISON: 04/23/2019 FINDINGS: Limitations: None. Vertebrae: Stable cervical straightening with slight flexion at C4-C5. Stable prominent C4-C5 uncal spurring and moderate spondylosis C4-C7. There is stable degenerative grade 1 anterolisthesis of C4 on C5. Stable facet arthrosis at all levels. No fracture. Discs/spinal canal/neural foramina: Significant increase in moderate to marked disc space narrowing C4-C5, C5-C6 and C6-C7. There is mild ventral canal and moderate left foraminal stenosis C4-C5 and C5-C6. Soft tissues: No significant abnormality noted. Lung apices: No significant abnormality noted. IMPRESSION: Cervical degenerative changes without fracture. ACT 112: N/A Electronically signed by Yuliana Medina 12-06-2024 6:36 PM Code Status & VTE Plan Code Status Full VTE Prophylaxis Plan VTE Prophylaxis will be ordered: Yes Supervising Physician Co-Signing Physician Notes I have seen and discussed the case with the collaborating advanced practitioner. I agree with the above H&P. I have reviewed and confirmed the patients medical history, the findings on physical examination, and the patients diagnosis and treatment plan with Bennie NORMAN and agree with the information documented. Ms Harvey is a 74 yo woman with history of multiple admissions for syncope/unresponsiveness 2/2 polypharmacy, chronic pain on opioids, tremors, parkinsonism, obesity, DMTII who is admitted for acute encephalopathy. Patient is poor historian and reports simply not feeling well this am--patient alert to self and location, but stated year was 2022. Patient reports uncontrolled neck pain and denies any extraneous use of meds, but then seems to back track on her usage of pain modalities. Patient was in no distress initially then when pain was mentioned, patient demeanor changed and acutely distress over neck pain. GENERAL APPEARANCE: AxOx2, generally well-appearing until neck pain mentioned, then sitting forward holding neck HEENT: NC, AT. MMM. EOMI, clear conjunctiva, oropharynx clear. NECK: Supple without lymphadenopathy. no stiffness noted, tenderness along midline reported, degree of pain not congruent with pressure exerted on exam HEART: Normal rate and regular rhythm, normal S1/S1, no m/r/g LUNGS: CTAB, moving air well. No crackles or wheezes are heard. ABDOMEN: Soft, nontender, nondistended with good bowel sounds heard. BACK: No CVAT, no obvious deformity. EXTREMITIES: Without cyanosis, clubbing or edema. NEUROLOGICAL: Grossly nonfocal. Alert and oriented, moving all 4 extremities. CN not formally tested but appear grossly intact. Skin: Warm and dry without any rash. #Acute encephalopathy, multifactorial concern for polypharmacy, hx of med noncompliance and use of nonprescibed agents, as well as possible underlying uti -hold po regimen, keep fentanyl patch to keep baseline control as established by pcp and reports of concerns with PO med misuse -treat uti delirium precautions #Acute on chronic pain unclear if malingering based upon response and change in demeanor when pain discussed [place] [facility] [place] prescribed 09/25 per PDMP continue fentanyl follow UDS start medrol dose pack CT neck Pt/OT rest of plan as above I spent a total of 25 minutes coordinating, documenting, and providing care for this patient excluding time spent in the performance of separately billed services. All of the aforementioned completed outside of collaborating with the assigned advanced practitioner for a full treatment plan. I have reviewed the advanced practitioner's documentation, and I agree with, and take responsibility for the plan of care
[2024-12-06] MEDS ORDERED: ALUMINUM/MAGNESIUM SUSP 30 ML UDC PO PRN (19:19)
[2024-12-06] MEDS ORDERED: MAGNESIUM HYDROXIDE SUSP 30 ML UDC PO PRN (19:19)
[2024-12-06] MEDS ORDERED: methylPREDNISolone 4 MG TAB, 6 DAY TAPER PO SCH (19:19)
[2024-12-06] MEDS: ACETAMINOPHEN 325 MG TAB PO PRN (20:16)
[2024-12-06] MEDS: methylPREDNISolone 4 MG TAB PO STA (20:16)
[2024-12-06] MEDS: ENOXAPARIN INJ 40 MG/0.4 ML SYR SQ SCH (20:17)
[2024-12-06] MEDS: busPIRone 5 MG TAB PO SCH (20:18)
[2024-12-06] MEDS: PRAMIPEXOLE DIHYDROCHLO 0.5 MG TAB PO SCH (20:18)
[2024-12-06] MEDS: traZODone HCL 100 MG TAB PO SCH (20:19)
[2024-12-06] MEDS: DICLOFENAC SOD 1% GEL 100 GM TUBE EXT SCH (20:19)
--- OUTSIDE RECORDS SUMMARY | 2024-12-06 20:49 | External Medical Summary | Summary of Care ---
Author Name Unknown Organization [facility] Address [address] [place] [address] Phone [phone] Care Team Providers Care Lead Shop Operator Name Role Phone Kristie Franks MD Primary Care Prov ider Encounter Details Date Type Department Care Team (Late st Contact Info) Description 11/30/2024 3:00 PM EDT Home Visit Care Coordination and Integration [address] [place] [address] Ema Lucas [facility] Health Escalation Engineer [address] [place] [address] Allergies Active Allergy Reactions Criticality Noted Date Comments Latex 04/04/2009 Penicillins Low 03/24/2023 "It makes my bottom sore" documented as of this encounter (statuses as of 12/01/2024) Medications Escitalopram Oxalate 20 MG Oral Tablet (Lexapro) Take 1 Tablet by mouth in the morning. 09/28/19 23 Active Austedo 12 MG Oral Tablet Take 2 Tablets by mouth in the morning and 2 Tablets before bedtime. 10/29/19 23 Active OneTouch UltraSoft LancetsIndications: Type 2 diabetes mellitus with diabetic chronic kidney disease, unspecified CKD stage, unspecified whether nursing home insulin use (HCC) Test once Daily Dx E11.9 100 Each 3 01/21/20 23 Active OLANZapine 10 MG Oral Tablet (zyPREXA) TAKE ONE TABLET BY MOUTH DAILY 45 Tablet 07/28/20 Active Additional Information Patient not taking.Reported on 09/07/2024 busPIRone HCl 10 MG Oral Tablet (Buspar) Take 1 Tablet by mouth in the morning and 1 Tablet before bedtime. Active Clopidogrel Bisulfate 75 MG Oral Tablet (pLAVix)Indications :Idiopathic cardiomyopathy (HCC) Take 1 Tablet by mouth in the morning. 90 Tablet 1 07/05/20 24 Active metFORMIN HCl ER 500 MG Oral Tablet Extended Release 24 Hour (Glucophage XR) Take 1 Tablet by mouth in the morning. 90 Tablet 3 07/05/20 24 Active Lisinopril 10 MG Oral Tablet (Prinivil)Indicatio ns:Idiopathic cardiomyopathy (HCC) Take 1 Tablet by mouth in the morning. 90 Tablet 3 07/05/20 24 Active Carvedilol 12.5 MG Oral Tablet (Coreg)Indications: Idiopathic cardiomyopathy (HCC) Take 1 Tablet by mouth in the morning and 1 Tablet before bedtime. 180 Tablet 3 07/05/20 Active Polyethylene Glycol 3350 17 GM/SCOOP Oral Powder (MiraLax)Indication s:Drug induced constipation Take 17 g by mouth as needed for Constipation. Dissolve one heaping tablespoon in 8 ounces of water or juice. Take one dose once a day until you have a bowel movement. If no bowel movement after 3 days, take one dose twice a day until you have a bowel movement. If still no bowel movement after 3 days, call your PCP. 238 g 1 07/05/20 Active Additional Information Patient not taking.Reported on 09/07/2024 Fluticasone Propionate 50 MCG/ACT Nasal Suspension (Flonase)Indication s:Dysfunction of left eustachian tube Administer 2 Sprays into each nostril in the morning. 10 mL 5 07/05/20 24 Active hydrOXYzine HCl 50 MG Oral TabletIndications:A djustment insomnia Take 1 Tablet by mouth at bedtime. 30 Tablet 5 07/05/20 24 Active Rosuvastatin Calcium 20 MG Oral Tablet (Crestor)Indication s:Hyperlipidemia with target LDL less than 70 TAKE 1 TABLET BY MOUTH EVERY MORNING 90 Tablet 1 09/25/19 25 Active Benzonatate 100 MG Oral Capsule (Tessalon Perles)Indications: Acute cough Take 1 Capsule by mouth 3 times a day as needed for Cough. Do not cut, crush, or chew. 50 Capsule 1 09/29/19 Active traZODone HCl 100 MG Oral Tablet (Desyrel) Take 2 Tablets by mouth at bedtime. 60 Tablet 3 10/08/19 Active Pramipexole Dihydrochloride 0.5 MG Oral Tablet (Mirapex) Take 1 Tablet by mouth at bedtime. 90 Tablet 1 10/22/19 Active fentaNYL 50 MCG/HR Transdermal Patch 72 Hour (Duragesic)Indicati ons:Generalized osteoarthritis,Disc disorder of lumbar region Place 1 Patch over 72 hours topically on the skin every 3 days. Apply for pain 10 Patch 11/11/19 Active documented as of this encounter (statuses as of 12/01/2024) Active Problems Problem Noted Date Diagnosed Date Parkinson's disease 09/29/2024 Major depressive disorder, single episode, moder ate 09/29/2024 Idiopathic cardiomyopathy 09/29/2024 Type 2 diabetes mellitus wit h stage 3a chronic kidney disease, without long-term current use of insulin 09/29/2024 Neuroleptic-induced parkinsonism 09/29/2024 Intermittent asthma with reliever use up to twic e per week 09/29/2024 History of CVA (cerebrovascular accident) 2023 Tremors of nervous system 07/05/2024 Drug induced constipation 07/05/2024 Spinal stenosis of lumbar re gion without neurogenic claudication 07/05/2024 Hyperlipidemia with target LDL less than 70 11/2023 Type 2 diabetes mellitus wit h hemoglobin A1c goal of less than 7.0% 11/07/2022 Palpitations 08/07/2021 GI bleed 04/06/2021 Decreased hearing, bilateral 02/06/2021 Occipital cerebral infarction 01/18/2021 2-part displaced fracture of surgical neck of left humerus, initial encounter for closed fracture 12/26/2020 Asthma 01/04/2020 Esophageal reflux 01/04/2020 Obstructive sleep apnea (adult) (pediatric) 12/08 Hx of hysterectomy, total 11/04/2019 Chronic obstructive pulmonary disease 09/21/2019 Pulmonary emphysema 06/01/2019 Anxiety 09/09/2017 Insomnia 09/09/2017 Closed fracture of distal fibula 08/12/2017 History of total knee arthroplasty, right 2016 Fracture of lower limb 12/21/2015 Backache 08/29/2015 Vitamin D deficiency 06/08/2015 Obesity, Class I, BMI 30.0-34.9 (see actual BMI) 05/01/2013 Anemia 10/25/2011 HTN, GOAL BELOW 140/90 07/14/2009 Overview (07/14/2009): Modified per HTN Taxonomy. Other disorder of eating of nonorganic origin Bipolar disorder 12/30/2008 Disc disorder of lumbar region 06/27/2008 Restless legs syndrome 10/09/2007 MEDICATION USE AGREEMENT 08/25/2007 GENERAL OSTEOARTHROSIS 09/06/2002 Major depressive disorder 06/23/2001 Overview (07/01/2017): ICD-10 update of inactive term Kidney disease, chronic, stage II (GFR 60-89 ml/ min) documented as of this encounter (statuses as of 12/01/2024) Resolved Problems Problem Noted Date Diagnosed Date Resolved Date Alzheimer's disease, unspecified (CODE) 02/09/2024 04/07/2024 Type 2 diabetes mellitus wit h diabetic chronic kidney disease 11/13/2022 02/09/2024 Malignant neoplasm of uterus 11/04/2019 09/29/2024 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 documented as of this encounter (statuses as of 12/01/2024) Immunizations Name Administration Dates Next Due COVID-19 mRNA, LNP-s, No Pre serve, 2-Dose Series (Pfizer) 05/01/2021 COVID-19, MRNA-LNP, PF, 30 M CG/0.3 mL, 12 YRS AND ABOVE, IM (PFIZER-Comirnaty) 07/18/2023 Pneumococcal Conjugate Vacci ne, 20-valent (Pauyqfl00) 04/29/2023 Seasonal Influenza Vac., MDV , IM, 0.5 mL (Fluzone) 08/21/2013,08/21/2012,07/02/2011,2009,06/08/2009,06/27/2008 Seasonal Influenza, High Dos e, Trivalent, PF, IM (Fluzone HD) 07/05/2024 Seasonal Influenza, Quadriva lent Hd (Fluzone Hd) 07/18/2023 TDAP, Age 7 and older, IM (Adacel) 02/29/2008 documented as of this encounter Social History Tobacco Use Types Packs/Day Years Used Date Smoking Tobacco: Never Smokeless Tobacco: Never Alcohol Use Standard Drinks/Week Comments No 0 (1 standard drink = 0.6 oz pur e alcohol) PHQ-2 Answer Date Recorded PHQ Adult Total Score 0 04/12/2024 Hunger Vital Sign Answer Date Recorded Within the past 12 months, y ou worried that your food would run out before you got the money to buy more. Never true 04/22/20 24 Within the past 12 months, t he food you bought just didn't last and you didn't have money to get more. Never true 04/22/2024 Childcare Answer Date Recorded Do you feel overwhelmed with taking care of a child, family member or friend? No 04/22/2024 Does your family need help f inding childcare? (Household - for ages 0-17 years) Not on file 04/22/2024 Clothing Answer Date Recorded Have you been unable to get clothing when it was really needed? No 04/22/2024 Is your family able to get c lothes or diapers when needed? (Household - for ages 0-17 years) Not on file 04/22/2024 Personal Safety Answer Date Recorded Do you feel unsafe or have concerns for your saf ety? No 04/22/2024 Do you have concerns for you r family's safety? (Household - for ages 0-17 years) Not on file 04/22/2024 Utilities Answer Date Recorded Do you have trouble paying y our heating, water, or electric bill? No 04/22/2024 Is your family able to pay t he heat, water, or electric bill? (Household - for ages 0-17 years) Not on file 04/22/2024 Does your family have access to good internet? (Household - for ages 0-17 years) Not on file 04/22/2024 Employment Status Answer Date Recorded Are you unemployed or without regular income? No 04/22/2024 Does the household have a re gular source of income? (Household - for ages 0-17 years) Not on file 04/22/2024 Social Connections Answer Date Recorded How often do you feel lonely or isolated from those around you? Sometimes 04/22/2024 Financial Resource Strain Answer Date R ecorded Do you have any trouble payi ng for your medications, or do you think you might in the future? No 04/22/2024 Does your family have troubl e paying for medicine? (Household - for ages 0-17 years) Not on file 04/22/2024 Transportation Needs Answer Date Record ed Do you have trouble getting a ride to medical visits or work? (Adult - for ages 18 years and over) Not on file 04/22/2024 Does your family have a hard time getting a ride to doctors visits? (Household - for ages 0-17 years) Not on file 04/22/2024 Has lack of transportation k ept you from medical appointments, meetings, work, or from getting things needed for daily living? Check all that apply. No 04/22/2024 Do you (or your family) have trouble finding or paying for a ride (transportation)? (Household - for ages 0-17 years) Not on file 04/22/2024 Housing Stability Answer Date Recorded Do you currently live in a s helter or have no steady place to sleep at night? No 04/22/2024 Do you think you are at risk of becoming homeless? (Adult - for ages 18 years and over) Not on file 04/22/2024 Does your family worry about paying for your home or becoming homeless? (Household - for ages 0-17 years) Not on file 0 04/22/2024 Are you homeless or worried that you might be in the future? No 04/22/2024 Are you (or your family) alex eless or worried that you might be in the future? (Household - for ages 0-17 years) Not on file Food Insecurity Answer Date Recorded Do you need food for this week? No 04/22/2024 Are you able to get enough f ood for your family? (Household - for ages 0-17 years) Not on file 04/22/2024 Does your family need food t his week? (Household - for ages 0-17 years) Not on file 04/22/2024 Do you always have enough fo od for your family? (Household - for ages 0-17 years) Not on file 04/22/2024 Food Insecurity Answer Date Recorded Within the past 12 months, y ou worried that your food would run out before you got the money to buy more. Never true 04/22/20 24 Within the past 12 months, t he food you bought just didn't last and you didn't have money to get more. Never true 04/22/2024 Do you need food for this week? No 04/22/2024 Comments No Sex and Gender Information Value Date Recorded Sex Assigned at Not on file Legal Sex Female 5:26 AM EST Gender Identity Not on file Sexual Orientation Not on file Occupation Industry Job Start Date Job End Date unemployed Not on file Not on file Not on file documented as of this encounter Progress Notes * Ema Lucas [facility] - 12/01/2024 8:15 AM EDT Telemedicine visit: No [facility] Escalation Engineer (KESHA) documentation: CHW was requested to go to pt's home to provide contact for CM to complete the snp assessment. CHW was unable to find pt at home upon arrival. CHW knocked several times and attempted to call pt's phone, but unable to reach or leave a message due to voicemail being full. CHW message CM on TEAMS to let her know of the inability to contact pt. documented in this encounter Plan of Treatment Upcoming Encounters Date Type Department Care Team (Late st Contact Info) Description 12/08/2024 10:00 AM EDT Office Visit Cardiology, [facility] [address] [place] [phone] Selena Villanueva CRNP [address] [place] [address] [place] [address] 12/09/2024 1:00 PM EDT Office Visit Family Medicine [address] [place] [phone] Lars Vidal CRNP [address] [place] [address] [place] [address] 01/19/2025 11:40 AM EDT Office Visit [address] [phone] Kristie Franks MD [address] [place] [address] [place] [phone] 01/25/2025 3:40 PM EDT Office Visit Neurology [facility] [address] [place] [address] Otilio Bee MD [address] [place], [place] [id number] 03/16/2025 1:00 PM EDT Office Visit [address] [phone] Kristie Franks MD [address] [place] [address] [place] [id number] Scheduled Procedures Name Priority Associated Diagnoses Date/Ti me COLONOSCOPY FLEXIBLE PROXIMA L DIAGNOSTIC Recall Special screening for malignant neoplasms, colon Health Maintenance Due Date Last Done Comments Cologuard 1995 Fecal Occult Blood Test 1995 Sigmoidoscopy 1995 Zoster Vaccines (1 of 2) 02/04/2000 Adult Wellness Visit 02/04/2016 DTap/Tdap Vaccines (2 - Td or Tdap) 02/28/2018 02/29/2008 COVID-19 Vaccine (3 - season) 2024 07/18/2023, 05/01/2021 Diabetic Eye Exam 07/18/2024 07/18/2023, , 01/15/2012 *COPD SEVERITY VERIFIED BY PFT 09/19/2024 *SPIROMETRY ONCE FOR ASTHMA-ADULT 09/19/2024 Mammogram 11/13/2024 11/14/2023, 0304/2024, 11/12/2022, Additional history exists Albumin/Creatinine Ratio 02/08/2025 02/09/2024, 03/0 04/2023 CKD HGB USE SMARTSET 05494 02/08/202502/08, 01/26/2021, 01/20/2021, Additional history exists GFR 03/29/2025 09/29/2024, 06/0 11/2023, 04/29/2023, Additional history exists HbA1c 03/29/2025 09/29/2024, 06/0 11/2023, 04/29/2023, Additional history exists Depression Monitoring 04/12/2025 04/12/2024 CKD PHOS USE SMARTSET 82022 09/29/2025 09/29/2024, 0 10/05/1997 Diabetic Foot Exam 09/29/2025 09/29/2024, 04/29/2023 O2 ASSESSMENT COMPLETED IN PAST YEAR FOR COPD 11/02/2025 11/02/2024 DXA Scan 04/28/2030 04/28/2023 Colonoscopy 03/24/2033 03/24/2023, 03/08, 04/07/2021, Additional history exists Colorectal Cancer Screening 03/24/2033 Pneumococcal Vaccine: 50+ Years Completed 04/29/2023, 02/18/2022, 03/13/2020, Additional history exists Influenza Vaccine (FLU shot) Completed 07/05/2024, 07/18/2023, 06/24/2022, Additional history exists Alpha-1 Antitrypsin Discontinued HPV (Gardasil) Vaccine Aged Out No lo nger eligible based on patient's age to complete this topic Hepatitis B Vaccine Aged Out No longe r eligible based on patient's age to complete this topic MENINGOCOCCAL (MENACTRA/MENVEO) Aged Out No longer eligible based on patient's age to complete this topic Meningitis B Vaccine (Bexsero/Trumemba) Aged Out No longer eligible based on patient's age to complete this topic documented as of this encounter Medical Devices Not on filedocumented as of this encounter Care Teams Lead Shop Operator Relationship Specialty Start Date End Date Kristie Franks MD [address] [place] [address] [place] [phone] PCP - General Family Medicine 3/13/23 documented as of this encounter
--- OUTSIDE RECORDS SUMMARY | 2024-12-06 20:50 | External Medical Summary | Summary of Care ---
Author Name Unknown Organization [facility] Address [address] [place] [address] Phone [phone] Care Team Providers Care Authorization Manager Name Role Phone Kristie Franks MD Primary Care Prov ider Encounter Details Date Type Department Care Team (Late st Contact Info) Description 11/30/2024 8:45 AM EDT Scheduled Telephone Care Coordination and Integration [address] [place], [place] [phone] Ema Lucas [facility] Babcock Tester [address] [place] [address] Allergies Active Allergy Reactions Criticality Noted Date Comments Latex 04/04/2009 Penicillins Low 03/24/2023 "It makes my bottom sore" documented as of this encounter (statuses as of 11/30/2024) Medications Escitalopram Oxalate 20 MG Oral Tablet (Lexapro) Take 1 Tablet by mouth in the morning. 09/28/19 23 Active Austedo 12 MG Oral Tablet Take 2 Tablets by mouth in the morning and 2 Tablets before bedtime. 10/29/19 23 Active OneTouch UltraSoft LancetsIndications: Type 2 diabetes mellitus with diabetic chronic kidney disease, unspecified CKD stage, unspecified whether [facility] insulin use (HCC) Test once Daily Dx [...] as of this encounter (statuses as of 11/30/2024) Active Problems Problem Noted Date Diagnosed Date [...] as of this encounter (statuses as of 11/30/2024) Resolved Problems Problem Noted Date Diagnosed Date Resolved Date Alzheimer's disease, unspecified (CODE) 02/09/2024 04/07/2024 Type 2 diabetes mellitus wit h diabetic chronic kidney disease 11/13/2022 02/09/2024 Malignant neoplasm of uterus 11/04/2019 09/29/2024 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 documented as of this encounter (statuses as of 11/30/2024) Immunizations Name Administration Dates Next Due COVID-19 mRNA, LNP-s, No Pre serve, 2-Dose Series (Pfizer) 05/01/2021 COVID-19, MRNA-LNP, PF, 30 M CG/0.3 mL, 12 YRS AND ABOVE, IM (PFIZER-Comirnaty) 07/18/2023 Pneumococcal Conjugate Vacci ne, 20-valent ([id number]) 04/29/2023 Seasonal Influenza Vac., MDV , IM, [...] Progress Notes * Ema Lucas [facility] Bab[facility] Tester - 11/30/2024 9:02 AM EDT Telemedicine visit: No [facility] Babcock Tester (KESHA) documentation: CHW call to confirm appointment for SNP. UTC, no voicemail box available due to being full. documented in this encounter Plan of Treatment Upcoming Encounters Date Type Department Care Team (Late st Contact Info) Description 11/30/2024 3:00 PM EDT Home Visit Care Coordination and Integration [address] [place] [address] Ema Lucas [facility] T[facility] [address] [place] [address] 12/08/2024 10:00 AM EDT Office Visit Cardiology, [facility] [address] [place] [phone] Selena Villanueva CRNP [address] [place] [address] 12/09/2024 1:00 PM EDT Office Visit Family Medicine [address] [phone] Lars Vidal CRNP [address] [place] [address] [place] [phone] 01/19/2025 11:40 AM EDT Office Visit [address] [phone] Kristie Franks MD [address] [place] [address] [place] [address] 01/25/2025 3:40 PM EDT Office Visit Neurology [facility] [address] [place] [address] Otilio Bee MD [address] [place] [address] 03/16/2025 1:00 PM EDT Office Visit [address] [phone] Kristie Franks MD [address] [place] [address] [place] [phone] Scheduled Procedures Name Priority Associated Diagnoses Date/Ti me COLONOSCOPY FLEXIBLE PROXIMA L DIAGNOSTIC Recall Special screening for malignant neoplasms, colon Health Maintenance Due Date Last Done Comments Cologuard 1995 Fecal Occult Blood Test 1995 Sigmoidoscopy 1995 Zoster Vaccines (1 of 2) 02/04/2000 Adult Wellness Visit 02/04/2016 DTap/Tdap Vaccines (2 - Td or Tdap) 02/28/2018 02/29/2008 COVID-19 Vaccine ( - season) 2024 07/18/2023, 05/01/2021 Diabetic Eye Exam 07/18/2024 07/18/2023, , 01/15/2012 *COPD SEVERITY VERIFIED BY PFT 09/19/2024 *SPIROMETRY ONCE FOR ASTHMA-ADULT 09/19/2024 Mammogram 11/13/2024 11/14/2023, 04/2024, 11/12/2022, Additional history exists Albumin/Creatinine Ratio 02/08/2025 02/09/2024, 03/0 04/2023 CKD HGB USE SMARTSET 00586 02/08/202502/08, 01/26/2021, 01/20/2021, Additional history exists GFR 03/29/2025 09/29/2024, 06/0 11/2023, 04/29/2023, Additional history exists HbA1c 03/29/2025 09/29/2024, 06/0 11/2023, 04/29/2023, Additional history exists Depression Monitoring 04/12/2025 04/12/2024 CKD PHOS USE SMARTSET 77537 09/29/2025 09/29/2024, 0 10/05/1997 Diabetic Foot Exam [...] filedocumented as of this encounter Care Teams Authorization Manager Relationship Specialty Start Date End Date Kristie Franks MD [address] [place] [address] [place] [phone] PCP - General Family Medicine 11/18/22 documented as of this encounter
--- OUTSIDE RECORDS SUMMARY | 2024-12-06 20:50 | External Medical Summary | Summary of Care ---
Author Name Unknown Organization [facility] Address [address] [place] [address] Phone [phone] Care Team Providers Care Automatic Spooler Operator Name Role Phone Kristie Franks MD Primary Care Prov ider Reason for Visit * Reason Onset Date Comments Advice 10/05/2024 Encounter Details Date Type Department Care Team (Late st Contact Info) Description 10/05/2024 Telephone Family Medicine [address] [phone] Kristie Franks MD [address] [place] [address] [place] [address] Advice Allergies Active Allergy Reactions Criticality Noted Date Comments Latex 04/04/2009 Penicillins Low 03/24/2023 "It makes my bottom sore" documented as of this encounter (statuses as of 11/18/2024) Medications Escitalopram Oxalate 20 MG Oral Tablet (Lexapro) Take 1 Tablet by mouth in the morning. 09/28/19 Active Austedo 12 MG Oral Tablet Take 2 Tablets by mouth in the morning and 2 Tablets before bedtime. 10/29/19 Active OneTouch UltraSoft LancetsIndications :Type 2 diabetes mellitus with diabetic chronic kidney disease, unspecified CKD stage, unspecified whether [facility] insulin use (HCC) Test once Daily Dx E11.9 100 Each 3 05/15/20 23 Active OLANZapine 10 MG Oral Tablet (zyPREXA) TAKE ONE TABLET BY MOUTH DAILY 45 Tablet 07/28/20 Active Additional Information Patient not taking.Reported on 09/07/2024 busPIRone HCl 10 MG Oral Tablet (Buspar) Take 1 Tablet by mouth in the morning and 1 Tablet before bedtime. Active Clopidogrel Bisulfate 75 MG Oral Tablet (pLAVix)Indication s:Idiopathic cardiomyopathy (HCC) Take 1 Tablet by mouth in the morning. 90 Tablet 1 07/05/20 Active metFORMIN HCl ER 500 MG Oral Tablet Extended Release 24 Hour (Glucophage XR) Take 1 Tablet by mouth in the morning. 90 Tablet 3 07/05/20 24 Active Lisinopril 10 MG Oral Tablet (Prinivil)Indicati ons:Idiopathic cardiomyopathy (HCC) Take 1 Tablet by mouth in the morning. 90 Tablet 3 07/05/20 24 Active Carvedilol 12.5 MG Oral Tablet (Coreg)Indications :Idiopathic cardiomyopathy (HCC) Take 1 Tablet by mouth in the morning and 1 Tablet before bedtime. 180 Tablet 3 07/05/20 Active Polyethylene Glycol 3350 17 GM/SCOOP Oral Powder (MiraLax)Indicatio ns:Drug induced constipation Take 17 g by mouth [...] 09/07/2024 Fluticasone Propionate 50 MCG/ACT Nasal Suspension (Flonase)Indicatio ns:Dysfunction of left eustachian tube Administer 2 Sprays into each nostril in the morning. 10 mL 5 07/05/20 24 Active hydrOXYzine HCl 50 MG Oral TabletIndications: Adjustment insomnia Take 1 Tablet by mouth at bedtime. 30 Tablet 5 07/05/20 24 Active Rosuvastatin Calcium 20 MG Oral Tablet (Crestor)Indicatio ns:Hyperlipidemia with target LDL less than 70 TAKE 1 TABLET BY MOUTH EVERY MORNING 90 Tablet 1 09/25/19 25 Active Benzonatate 100 MG Oral Capsule (Tessalemy Sutton)Indications :Acute cough Take 1 Capsule by mouth 3 times a day as needed for Cough. Do not cut, crush, or chew. 50 Capsule 1 09/29/19 25 Active documented as of this encounter (statuses as of 11/18/2024) Active Problems Problem Noted Date Diagnosed Date [...] Hyperlipidemia with target LDL less than 70 0611/2023 Type 2 diabetes mellitus wit h hemoglobin [...] as of this encounter (statuses as of 11/18/2024) Resolved Problems Problem Noted Date Diagnosed Date Resolved Date Alzheimer's disease, unspecified (CODE) 02/09/2024 04/07/2024 Type 2 diabetes mellitus wit h diabetic chronic kidney disease 11/13/2022 02/09/2024 Malignant neoplasm of uterus 11/04/2019 09/29/2024 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 documented as of this encounter (statuses as of 11/18/2024) Immunizations Name Administration Dates Next Due COVID-19 mRNA, LNP-s, No Pre serve, 2-Dose Series (Pfizer) 05/01/2021 COVID-19, MRNA-LNP, PF, 30 M CG/0.3 mL, 12 YRS AND ABOVE, IM (PFIZER-[facility]) 07/18/2023 Pneumococcal Conjugate Vacci ne, 20-valent ([id number]) 04/29/2023 Seasonal Influenza Vac., MDV , IM, [...] on file documented as of this encounter Miscellaneous Notes * Telephone Encounter - Kristie Franks MD - 10/05/2024 12:59 PM EST Spoke with Jasmina, patient's sister. She reports that her daughter Merced packed up Chante's belongings and moved her in with her on Friday. Jasmina is concerned that Merced will not provide her needed care, and is concerned that Merced might misuse her pain medications. Jasmina kept her hydrocodone; but Chante took her fentanyl patches (# 8 patches). Chante has the pain patch that she was wearing on Friday. Jasmina is concerned Merced will not feed her properly, will not provide needed medications either. Chante has lived with Merced in the past and lost weight due to not being fed. Chante initially went to [facility]'s night because they needed to get pipes fixed at Jasmina's house and they did not have water for a couple days. Provided Jasmina the number for Adult Protective Services [phone]. management and budget analyst - can you make a report to Adult Protective Services with the above information today please?? * Telephone Encounter - Alejandra Rodriguez, MICHAELA - 10/05/2024 8:40 AM EST Arjun. Receiving incoming voicemail from patients sister Jasmina. She states that she was told to call and talk with Dr. Ruperto Harvey when patient moves out of Jasminas house. Jasmina states Chante has moved out and is living with her granddaughter. Jasmina has concerns as patient will not be cared for there. She is requesting call back from Dr. Ruperto Harvey Thank you. documented in this encounter Plan of Treatment Upcoming Encounters Date Type Department Care Team (Late st Contact Info) Description 12/02/2024 9:40 AM EDT Home Visit Care Coordination and Integration [address] [place] [address] Ema Lucas, [facility] Blue Line Hanger [address] [place] [address] 12/08/2024 10:00 AM EDT Office Visit Cardiology, [facility] [address] [place] [address] Selena Villanueva CRNP [address] [facility] [place] [address] 12/09/2024 1:00 PM EDT Office Visit Family Medicine [address] [phone] Lars Vidal CRNP [address] [place] [address] [place] [address] 01/19/2025 11:40 AM EDT Office Visit Family Medicine [address] [phone] Kristie Franks MD [address] [place] [address] [place] [address] 01/25/2025 3:40 PM EDT Office Visit Neurology [facility] [address] [place] [address] Otilio Bee MD [address] [place] [address] 03/16/2025 1:00 PM EDT Office Visit Family Medicine [address] [phone] Kristie Franks MD [address] [place] [address] [place] [address] Scheduled Procedures Name Priority Associated Diagnoses Date/Ti [...] ONCE FOR ASTHMA-ADULT 09/19/2024 Mammogram 11/13/2024 11/14/2023, 03/0 04/2024, 11/12/2022, Additional history exists Albumin/Creatinine Ratio 02/08/2025 02/09/2024, 03/0 04/2023 CKD HGB USE SMARTSET 05871 02/08/202502/08, 01/26/2021, 01/20/2021, Additional history exists GFR 03/29/2025 09/29/2024, 06/0 11/2023, 04/29/2023, Additional history exists HbA1c 03/29/2025 09/29/2024, 06/0 11/2023, 04/29/2023, Additional history exists Depression Monitoring 04/12/2025 04/12/2024 CKD PHOS USE SMARTSET 19090 09/29/2025 09/29/2024, 0 10/05/1997 Diabetic Foot Exam [...] filedocumented as of this encounter Care Teams Automatic Spooler Operator Relationship Specialty Start Date End Date Kristie Franks MD [address] [place] [address] [place] [address] PCP - General Family Medicine 11/18/22 documented as of this encounter
--- OUTSIDE RECORDS SUMMARY | 2024-12-06 20:50 | External Medical Summary | Summary of Care ---
Author Name Unknown Organization [facility] Address [address] [place] [address] Phone [phone] Care Team Providers Care Chief Medical Technologist Name Role Phone Kristie Franks MD Primary Care Prov ider Encounter Details Date Type Department Care Team (Late st Contact Info) Description 11/30/2024 3:00 PM EDT Home Visit Care Coordination and Integration [address] [place] [address] Ema Lucas [facility] Steward/Stewardess Smoke [facility] [address] [place] [address] Allergies Active Allergy Reactions Criticality Noted Date [...] kidney disease, unspecified CKD stage, unspecified whether [facility] insulin use (HCC) Test once Daily Dx [...] (PFIZER-Comirnaty) 07/18/2023 Pneumococcal Conjugate Vacci ne, 20-valent ([id number]) 04/29/2023 Seasonal Influenza Vac., MDV , IM, [...] Progress Notes * Ema Lucas [facility] Steward/Stewardess Smoke [facility] - 12/01/2024 8:15 AM EDT Telemedicine visit: No [facility] Steward/Stewardess Smoke [facility] (KESHA) documentation: CHW was requested to go [...] 12/08/2024 10:00 AM EDT Office Visit Cardiology, [facility] [address] [place] [phone] Selena Villanueva CRNP [address] [place] [address] [place] [address] 12/09/2024 1:00 PM EDT Office Visit Family Medicine [address] [place] [phone] Lars Vidal CRNP [address] [place] [address] [place] [address] 01/19/2025 11:40 AM EDT Office Visit [address] [phone] Kristie Franks MD [address] [place] [address] [place] [address] 01/25/2025 3:40 PM EDT Office Visit Neurology [facility] [address] [place] [address] Otilio Bee MD [address] [place], [place] [id number] 03/16/2025 1:00 PM EDT Office Visit [address] [phone] Kristie Franks MD [address] [place] [address] [place] [address] Scheduled Procedures Name Priority Associated Diagnoses Date/Ti [...] 02/09/2024, 03/0 04/2023 CKD HGB USE SMARTSET 76090 02/08/202502/08, 01/26/2021, 01/20/2021, Additional history exists GFR 03/29/2025 09/29/2024, 06/0 11/2023, 04/29/2023, Additional history exists HbA1c 03/29/2025 09/29/2024, 06/0 11/2023, 04/29/2023, Additional history exists Depression Monitoring 04/12/2025 04/12/2024 CKD PHOS USE SMARTSET 18400 09/29/2025 09/29/2024, 0 10/05/1997 Diabetic Foot Exam [...] filedocumented as of this encounter Care Teams Chief Medical Technologist Relationship Specialty Start Date End Date Kristie Franks MD [address] [place] [address] [place] [address] PCP - General Family Medicine 3/13/23 documented as of this encounter
--- OUTSIDE RECORDS SUMMARY | 2024-12-06 20:50 | External Medical Summary | Summary of Care ---
Author Name Unknown Organization [facility] Address [address] [place] [address] Phone [phone] Care Team Providers Care Residence Director Name Role Phone Kristie Franks MD Primary Care Prov ider Reason for Visit * Reason Onset Date Comments Med Request 11/15/2024 Serve Back and S houlder Pain Encounter Details Date Type Department Care Team (Late st Contact Info) Description 11/15/2024 Telephone Family Medicine [address] [phone] Kristie Frakns MD [address] [place] [address] Med Request (Serve Back and Shoulder Pain) Allergies Active Allergy Reactions Criticality Noted Date Comments Latex 04/04/2009 Penicillins Low 03/24/2023 "It makes my bottom sore" documented as of this encounter (statuses as of 11/19/2024) Medications Escitalopram Oxalate 20 MG Oral Tablet (Lexapro) Take 1 Tablet by mouth in the morning. 09/28/19 Active Austedo 12 MG Oral Tablet Take 2 Tablets by mouth in the morning and 2 Tablets before bedtime. 10/29/19 Active OneTouch UltraSoft LancetsIndications: Type 2 diabetes mellitus with diabetic chronic kidney disease, unspecified CKD stage, unspecified whether exterminator helper termite insulin use (HCC) Test once Daily Dx E11.9 100 Each 3 01/21/20 Active OLANZapine 10 MG Oral Tablet (zyPREXA) [...] Tablet before bedtime. 180 Tablet 3 07/05/20 24 Active Polyethylene Glycol 3350 17 GM/SCOOP Oral [...] chew. 50 Capsule 1 09/29/19 25 Active traZODone HCl 100 MG Oral Tablet (Desyrel) Take 2 Tablets by mouth at bedtime. 60 Tablet 3 10/08/19 25 Active Pramipexole Dihydrochloride 0.5 MG Oral Tablet (Mirapex) Take 1 Tablet by mouth at bedtime. 90 Tablet 1 10/22/19 25 Active fentaNYL 50 MCG/HR Transdermal Patch 72 Hour (Duragesic)Indicati ons:Generalized osteoarthritis,Disc disorder of lumbar region Place 1 Patch over 72 hours topically on the skin every 3 days. Apply for pain 10 Patch 11/11/19 Active documented as of this encounter (statuses as of 11/19/2024) Active Problems Problem Noted Date Diagnosed Date [...] Hyperlipidemia with target LDL less than 70 0 11/2023 Type 2 diabetes mellitus wit h [...] as of this encounter (statuses as of 11/19/2024) Resolved Problems Problem Noted Date Diagnosed Date Resolved Date Alzheimer's disease, unspecified (CODE) 02/09/2024 04/07/2024 Type 2 diabetes mellitus wit h diabetic chronic kidney disease 11/13/2022 02/09/2024 Malignant neoplasm of uterus 11/04/2019 09/29/2024 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 documented as of this encounter (statuses as of 11/19/2024) Immunizations Name Administration Dates Next Due COVID-19 mRNA, LNP-s, No Pre serve, 2-Dose Series (Pfizer) 05/01/2021 COVID-19, MRNA-LNP, PF, 30 M CG/0.3 mL, 12 YRS AND ABOVE, IM (PFIZER-Comirnat) 07/18/2023 Pneumococcal Conjugate Vacci ne, 20-valent ([id number]) 04/29/2023 Seasonal Influenza Vac., MDV , IM, [...] encounter Miscellaneous Notes * Telephone Encounter - Lars Vidal CRNP - 11/19/2024 2:58 PM EDT Okay that sounds good. Thank you for the help/guidance! * Telephone Encounter - Kristie Franks MD - 11/19/2024 11:14 AM EDT We just increased the Fentanyl patch dose to 50mcg. Is she using it appropriately? She can also take Tylenol 1000mg three times daily (max daily dose 3000mg). At her upcoming appointment with Lars, can discuss stopping Plavix and starting Meloxicam. Lars - I believe she was started on Plavix years ago after a stroke. Please clarify how long agothe stroke was? If > 1 year, I think OK to stop Plavix and replace with Aspirin 81mg daily and then would be OK to start Meloxicam for additional pain management. * Telephone Encounter - Elizabeth Yap RN - 11/16/2024 3:26 PM EDT Kristie ,please advise * Telephone Encounter - Lars Vidal CRNP - 11/16/2024 12:28 PM EDT I am going to defer to Dr. Dangelo on this one.Looks like I am following up with her to reassess medication effectiveness, but I do not feel comfortable making any adjustments without her input. Thanks! * Telephone Encounter - Elizabeth Yap RN - 11/15/2024 3:09 PM EDT Pt saw PCP about this last week. Please advise. Lars is seeing pt next month * Telephone Encounter - Eben Fernandez OSA - 11/15/2024 2:15 PM EDT Patient called to inform Dr. Harvey that she need medication called in for her observer helper back and shoulder pain. Patient stated the patch is not working and the pain goes down into the buttocks, please send in medication as soon as possible. Please contact patient mobile number when medication has beensent. documented in this encounter Plan of Treatment Upcoming Encounters Date Type Department Care Team (Late st Contact Info) Description 12/02/2024 9:40 AM EDT Home Visit Care Coordination and Integration [address] [place] [address] Trion, Ema, [facility] Clothes Ironer [address] [place] [address] 12/08/2024 10:00 AM EDT Office Visit Cardiology, [facility] [address] [place] [address] Selena Villanueva CRNP [address] [facility] [place] [address] 12/09/2024 1:00 PM EDT Office Visit Family [address] [phone] Lars Vidal CRNP [address] [place] [address] [place] [address] 01/19/2025 11:40 AM EDT Office Visit Family [address] [phone] Kristie Franks MD [address] [place] [address] [place] [address] 01/25/2025 3:40 PM EDT Office Visit Neurology [facility] [address] [place] [address] Otilio Bee MD [address] [place] [address] 03/16/2025 1:00 PM EDT Office Visit Family [address] [phone] Kristie Franks MD [address] [place] [address] [place] [address] Scheduled Procedures Name Priority Associated Diagnoses Date/Ti [...] 02/09/2024, 03/0 04/2023 CKD HGB USE SMARTSET 57382 02/08/202502/08, 01/26/2021, 01/20/2021, Additional history exists GFR 03/29/2025 09/29/2024, 06/0 11/2023, 04/29/2023, Additional history exists HbA1c 03/29/2025 09/29/2024, 06/0 11/2023, 04/29/2023, Additional history exists Depression Monitoring 04/12/2025 04/12/2024 CKD PHOS USE SMARTSET 14068 09/29/2025 09/29/2024, 0 10/05/1997 Diabetic Foot Exam [...] filedocumented as of this encounter Care Teams Residence Director Relationship Specialty Start Date End Date Kristie Franks MD [address] [place] [address] [place] Jaramillo [phone] PCP - General Family Medicine 11/18/22 documented as of this encounter
--- OUTSIDE RECORDS SUMMARY | 2024-12-06 20:50 | External Medical Summary | Summary of Care ---
Author Name Unknown Organization [facility] Address [address] [place] [address] Phone [phone] Care Team Providers Care Salvage Worker Name Role Phone Kristie Franks MD Primary Care Prov ider Reason for Visit * Reason Onset Date Comments Med Request 11/15/2024 Serve Back and S houlder Pain Encounter Details Date Type Department Care Team (Late st Contact Info) Description 11/15/2024 Telephone Family Medicine [address] [phone] Kristie Franks MD [address] [place] [phone] Med Request (Serve Back and Shoulder [...] kidney disease, unspecified CKD stage, unspecified whether director long term care insulin use (HCC) Test once Daily Dx [...] (PFIZER-Comirnat) 07/18/2023 Pneumococcal Conjugate Vacci ne, 20-valent ([id number]) 04/29/2023 Seasonal Influenza Vac., MDV , IM, [...] she need medication called in for her magnetic observer back and shoulder pain. Patient stated the [...] Visit Care Coordination and Integration [address] [facility] [place] [address] Ema Lucas, Community [facility] Sales Facilitator [address] [place] [facility] [place] [address] 12/08/2024 10:00 AM EDT Office Visit Cardiology, [facility] [address] [facility] [place] [address] Selena Villanueva CRNP [address] [place] [address] 12/09/2024 1:00 PM EDT Office Visit [address] [phone] Lars Vidal CRNP [address] [place] [address] [place] [address] 01/19/2025 11:40 AM EDT Office Visit [address] [phone] Kristie Franks MD [address] [place] [address] [place] [address] 01/25/2025 3:40 PM EDT Office Visit Neurology [facility] [address] [place] [address] Otilio Bee MD [address] [place] [address] 03/16/2025 1:00 PM EDT Office Visit [address] [phone] Kristie Franks MD [address] [place] [address] [place] [address] Scheduled Procedures Name Priority Associated Diagnoses Date/Ti me COLONOSCOPY FLEXIBLE PROXIMA L DIAGNOSTIC Recall Special screening for malignant neoplasms, colon Health Maintenance Due Date Last Done Comments Cologuard 1995 Fecal Occult Blood Test 1995 Sigmoidoscopy 1995 Zoster Vaccines (1 of 2) 02/04/2000 Adult Wellness Visit 02/04/2016 DTap/Tdap Vaccines (2 - Td or Tdap) 02/28/2018 02/29/2008 COVID-19 Vaccine ( season) 2024 07/18/2023, 05/01/2021 Diabetic Eye Exam 07/18/2024 07/18/2023, , 01/15/2012 *COPD SEVERITY VERIFIED BY PFT 09/19/2024 *SPIROMETRY ONCE FOR ASTHMA-ADULT 09/19/2024 Mammogram 11/13/2024 11/14/2023, 03/0 04/2024, 11/12/2022, Additional history exists Albumin/Creatinine Ratio 02/08/2025 02/09/2024, 03/0 04/2023 CKD HGB USE SMARTSET 54572 02/08/202502/08, 01/26/2021, 01/20/2021, Additional history exists GFR 03/29/2025 09/29/2024, 06/0 11/2023, 04/29/2023, Additional history exists HbA1c 03/29/2025 09/29/2024, 06/0 11/2023, 04/29/2023, Additional history exists Depression Monitoring 04/12/2025 04/12/2024 CKD PHOS USE SMARTSET 53855 09/29/2025 09/29/2024, 0 10/05/1997 Diabetic Foot Exam [...] filedocumented as of this encounter Care Teams Salvage Worker Relationship Specialty Start Date End Date Kristie Franks MD [address] [place] [address] [place] [address] PCP - General Family Medicine 11/18/22 documented as of this encounter
--- OUTSIDE RECORDS SUMMARY | 2024-12-06 20:51 | External Medical Summary | Summary of Care ---
Author Name Unknown Organization [facility] Address [address] [place] [address] Phone [phone] Care Team Providers Care Lawn Care Professional Name Role Phone Kristie Franks MD Primary Care Prov ider Reason for Visit * Reason Onset Date Comments Order Request 11/03/2024 Encounter Details Date Type Department Care Team (Late st Contact Info) Description 11/03/2024 Telephone Family Medicine [address] [phone] Kristie Franks MD [address] [place] [address] [place] [address] Order Request Allergies Active Allergy Reactions Criticality Noted Date Comments Latex 04/04/2009 Penicillins Low 03/24/2023 "It makes my bottom sore" documented as of this encounter (statuses as of 11/11/2024) Medications Escitalopram Oxalate 20 MG Oral Tablet (Lexapro) Take 1 Tablet by mouth in the morning. 023 Active Austedo 12 MG Oral Tablet Take 2 Tablets by mouth in the morning and 2 Tablets before bedtime. 023 Active OneTouch UltraSoft LancetsIndications :Type 2 diabetes mellitus with diabetic chronic kidney disease, unspecified CKD stage, unspecified whether exterminator insulin use (HCC) Test once Daily Dx E11.9 100 Each 3 05/15/2 023 Active OLANZapine 10 MG Oral Tablet (zyPREXA) TAKE ONE TABLET BY MOUTH DAILY 45 Tablet Active Additional Information Patient not taking.Reported on 09/07/2024 busPIRone HCl 10 MG Oral Tablet (Buspar) Take 1 Tablet by mouth in the morning and 1 Tablet before bedtime. Active Clopidogrel Bisulfate 75 MG Oral Tablet (pLAVix)Indication s:Idiopathic cardiomyopathy (HCC) Take 1 Tablet by mouth in the morning. 90 Tablet 1 Active metFORMIN HCl ER 500 MG Oral Tablet Extended Release 24 Hour (Glucophage XR) Take 1 Tablet by mouth in the morning. 90 Tablet 3 024 Active Lisinopril 10 MG Oral Tablet (Prinivil)Indicati ons:Idiopathic cardiomyopathy (HCC) Take 1 Tablet by mouth in the morning. 90 Tablet 3 024 Active Carvedilol 12.5 MG Oral Tablet (Coreg)Indications :Idiopathic cardiomyopathy (HCC) Take 1 Tablet by mouth in the morning and 1 Tablet before bedtime. 180 Tablet 3 Active Polyethylene Glycol 3350 17 GM/SCOOP Oral [...] days, call your PCP. 238 g 1 Active Additional Information Patient not taking.Reported on 09/07/2024 Fluticasone Propionate 50 MCG/ACT Nasal Suspension (Flonase)Indicatio ns:Dysfunction of left eustachian tube Administer 2 Sprays into each nostril in the morning. 10 mL 5 Active hydrOXYzine HCl 50 MG Oral TabletIndications: Adjustment insomnia Take 1 Tablet by mouth at bedtime. 30 Tablet 5 Active Rosuvastatin Calcium 20 MG Oral Tablet (Crestor)Indicatio ns:Hyperlipidemia with target LDL less than 70 TAKE 1 TABLET BY MOUTH EVERY MORNING 90 Tablet 1 025 Active Benzonatate 100 MG Oral Capsule (Tessalemy Sutton)Indications :Acute cough Take 1 Capsule by mouth 3 times a day as needed for Cough. Do not cut, crush, or chew. 50 Capsule 1 025 Active traZODone HCl 100 MG Oral Tablet (Desyrel) Take 2 Tablets by mouth at bedtime. 60 Tablet 3 025 Active Pramipexole Dihydrochloride 0.5 MG Oral Tablet (Mirapex) Take 1 Tablet by mouth at bedtime. 90 Tablet 1 025 Active oxyCODONE-Acetamin ophen 10-325 MG Oral TabletIndications: Disc disorder of lumbar region,Chronic pain syndrome,Chronic right-sided low back pain with right-sided sciatica Take 1 Tablet by mouth in the morning and 1 Tablet in the evening. 10 Tablet 025 2024 Discontinued fentaNYL 25 MCG/HR Transdermal Patch 72 Hour (Duragesic)Indicat ions:Generalized osteoarthritis Place 1 Patch over 72 hours topically on the skin every 3 days. Apply for pain 10 Patch 025 2024 Discontinued documented as of this encounter (statuses as of 11/11/2024) Active Problems Problem Noted Date Diagnosed Date [...] as of this encounter (statuses as of 11/11/2024) Resolved Problems Problem Noted Date Diagnosed Date Resolved Date Alzheimer's disease, unspecified (CODE) 02/09/2024 04/07/2024 Type 2 diabetes mellitus wit h diabetic chronic kidney disease 11/13/2022 02/09/2024 Malignant neoplasm of uterus 11/04/2019 09/29/2024 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 documented as of this encounter (statuses as of 11/11/2024) Immunizations Name Administration Dates Next Due COVID-19 mRNA, LNP-s, No Pre serve, 2-Dose Series (optionsXpress) 05/01/2021 COVID-19, MRNA-LNP, PF, 30 M CG/0.3 mL, 12 YRS AND ABOVE, IM (PFIZER-Comirnaty) 07/18/2023 Pneumococcal Conjugate Vacci ne, 20-valent ([id number]) 04/29/2023 Seasonal Influenza Vac., MDV , IM, [...] encounter Miscellaneous Notes * Telephone Encounter - Marj Lucas LPN - 11/11/2024 2:11 PM EST Patient did not answer but I was able to leave a message on identified VM with [facility] number. If needed the number is * Telephone Encounter - Celsa Tolbert OSA - 11/11/2024 1:15 PM EST Pt is calling for a phone number for Tomorrow [facility] so she can check the status of the chair. Pt is still waiting. Please return call. * Telephone Encounter - Carol Tinoco CMA - 11/09/2024 4:12 PM EST Order submitted to [facility]. Called and advised pt order submitted advised could take up too5 days business days * Telephone Encounter - Susie Valdes CPhT - 11/09/2024 12:43 PM EST Patient checking status of her lift chair. She says the chair script cannot be sent to [facility] because they do not accept the Waiver Program benefits. Thank you, Susie Valdes CPhT Organic Extractions Technician [facility] 11/09/2024, 12:43 PM * Telephone Encounter - Yasmeen Butler CMA - 11/04/2024 1:37 PM EST Lift chair has to go to [facility] and can be requested to go to [facility]. * Telephone Encounter - Pebbles Ramos OSA - 11/04/2024 10:18 AM EST Patient calling in to check on the status of previous message. Patient Called within 48 hour timeframe. Reminded patient of 48 hour turn-around time. * Telephone Encounter - Marj Lucas LPN - 11/04/2024 9:46 AM EST [facility] Nurse In-basket does not manage request for the following topics. 1) Forms (FMLA, STD, Faxes, DME, Physicals, Prior auth, work or school notes, etc). 2) Anything needing a physical signature from a staff member or provider 3) Non-Acute appointment scheduling 4) Emergent issues, red flag symptoms or after hour calls including the weekends. Will direct to appropriate In-basket, Please review. * Telephone Encounter - Mami Ramsey OSA - 11/04/2024 7:44 AM EST Patient states that her old lift chair is broken and has not slept in 3 days as this is where she sleeps. Asking for the order to go to [facility] * Telephone Encounter - Veronica Jensen OSA - 11/03/2024 2:02 PM EST An order was requested for this patient. Name of Requesting Provider: Self Order Requested: Lift chair Diagnosis/Reason for Request: Back pain If order request is for Mammogram: Is the patient having any breast symptoms? No Is there a chance of ? No Has the patient had any breast problems in the past? No What location AND department does the patient wish to have their order completed at? [facility] Fax Number, if applicable: N/A Pt states she was seen yesterday and spoke to the doctors Nurse and they stated they would put the order in she had one and she stated that lift chair does not work anymore please advise If the caller is not a current patient, please advise the patient to call their current PCP to havethe order's prior to being seen in our office. The patient was informed that our providers would not order anything (medication, labs, etc.) prior to being seen. documented in this encounter Plan of Treatment Upcoming Encounters Date Type Department Care Team (Late st Contact Info) Description 12/08/2024 10:00 AM EDT Office Visit Cardiology, [facility] [address] [facility] [place] [address] Selena Villanueva CRNP [address] [place] [address] [place] [phone] 12/09/2024 1:00 PM EDT Office Visit Family Medicine [address] [phone] Lars Vidal CRNP [address] [place] [address] [place] [phone] 01/19/2025 11:40 AM EDT Office Visit [address] [phone] Kristie Franks MD [address] [place] [address] [place] [address] 01/25/2025 3:40 PM EDT Office Visit Neurology [facility] [place] [address] [place] [address] Otilio Bee MD [address] [place] [address] 03/16/2025 1:00 PM EDT Office Visit [address] [phone] Kristie Franks MD [address] [place] [address] [place] [phone] Scheduled Procedures Name Priority Associated Diagnoses Date/Ti [...] 02/09/2024, 03/0 04/2023 CKD HGB USE SMARTSET 17872 02/08/202502/08, 01/26/2021, 01/20/2021, Additional history exists GFR 03/29/2025 09/29/2024, 06/0 11/2023, 04/29/2023, Additional history exists HbA1c 03/29/2025 09/29/2024, 06/0 11/2023, 04/29/2023, Additional history exists Depression Monitoring 04/12/2025 04/12/2024 CKD PHOS USE SMARTSET 69052 09/29/2025 09/29/2024, 0 10/05/1997 Diabetic Foot Exam [...] filedocumented as of this encounter Care Teams Lawn Care Professional Relationship Specialty Start Date End Date Kristie Franks MD [address] [place] [address] [place] [phone] PCP - General Family Medicine 11/18/22 documented as of this encounter
--- OUTSIDE RECORDS SUMMARY | 2024-12-06 20:51 | External Medical Summary | Summary of Care ---
Author Name Unknown Organization [facility] Address [address] [place] [address] Phone [phone] Care Team Providers Care Manager Gyn Name Role Phone Kristie Franks MD Primary Care Prov ider Reason for Visit * Reason Onset Date Comments Med Request 11/15/2024 Serve Back and S houlder Pain Encounter Details Date Type Department Care Team (Late st Contact Info) Description 11/15/2024 Telephone Family Medicine [address] [phone] Kristie Franks MD [address] [place] [id number] Med Request (Serve Back and Shoulder Pain) Allergies Active Allergy Reactions Criticality Noted Date Comments Latex 04/04/2009 Penicillins Low 03/24/2023 "It makes my bottom sore" documented as of this encounter (statuses as of 11/16/2024) Medications Escitalopram Oxalate 20 MG Oral Tablet (Lexapro) Take 1 Tablet by mouth in the morning. 09/28/19 Active Austedo 12 MG Oral Tablet Take 2 Tablets by mouth in the morning and 2 Tablets before bedtime. 10/29/19 Active OneTouch UltraSoft LancetsIndications: Type 2 diabetes mellitus with diabetic chronic kidney disease, unspecified CKD stage, unspecified whether watermelon harvesting supervisor insulin use (HCC) Test once Daily Dx [...] as of this encounter (statuses as of 11/16/2024) Active Problems Problem Noted Date Diagnosed Date [...] Hyperlipidemia with target LDL less than 70 /0 11/2023 Type 2 diabetes mellitus wit h [...] as of this encounter (statuses as of 11/16/2024) Resolved Problems Problem Noted Date Diagnosed Date Resolved Date Alzheimer's disease, unspecified (CODE) 02/09/2024 04/07/2024 Type 2 diabetes mellitus wit h diabetic chronic kidney disease 11/13/2022 02/09/2024 Malignant neoplasm of uterus 11/04/2019 09/29/2024 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 Patient stated the patch is not working and the pain goes down into the buttocks, please send in medication as soon as possible. Please contact patient mobile number when medication has beensent. documented in this encounter Plan of Treatment Upcoming Encounters Date Type Department Care Team (Late st Contact Info) Description 12/08/2024 10:00 AM EDT Office Visit Cardiology, [facility] [address] [facility] [place] [address] Selena Villanueva CRNP [address] [place] [address] 12/09/2024 1:00 PM EDT Office Visit Family Medicine [address] [phone] Lars Vidal CRNP [address] [place] [address] [place] [address] 01/19/2025 11:40 AM EDT Office Visit Family Medicine [address] [phone] Kristie Franks MD [address] [place] [address] [place] [address] 01/25/2025 3:40 PM EDT Office Visit Neurology [facility] [address] [place] [address] Otilio Bee MD [address] [place] [address] 03/16/2025 1:00 PM EDT Office Visit Family Medicine [address] [phone] Kristie Frankse, MD [address] [place] [address] [place] [address] Scheduled Procedures Name Priority Associated Diagnoses Date/Ti [...] 02/09/2024, 03/0 04/2023 CKD HGB USE SMARTSET 82925 02/08/202502/08, 01/26/2021, 01/20/2021, Additional history exists GFR 03/29/2025 09/29/2024, 06/0 11/2023, 04/29/2023, Additional history exists HbA1c 03/29/2025 09/29/2024, 06/0 11/2023, 04/29/2023, Additional history exists Depression Monitoring 04/12/2025 04/12/2024 CKD PHOS USE SMARTSET 59347 09/29/2025 09/29/2024, 0 10/05/1997 Diabetic Foot Exam [...] filedocumented as of this encounter Care Teams Manager Gyn Relationship Specialty Start Date End Date Kristie Franks MD [address] [place] [address] [place] [address] PCP - General Family Medicine 11/18/22 documented as of this encounter
--- OUTSIDE RECORDS SUMMARY | 2024-12-06 20:51 | External Medical Summary | Summary of Care ---
Author Name Unknown Organization [facility] Address [address] [place] [address] Phone [phone] Care Team Providers Care Music Theory Teacher Name Role Phone Romeo Franks MD Primary Care Prov ider Reason for Referral * Medication Prior Authorization - Closed Specialty Diagnoses / Procedures Referred By Contac t Referred To Contact Diagnoses Generalized osteoarthritis Disc disorder of lumbar region Romeo Franks MD [address] [place] [address] [place] [address] Phone: tel: fax: Referral ID Status Reason Start Date Expiration Date Visits Re quested Visits Authorized [id number] Closed 999 999 Reason for Visit * Reason Onset Date Comments Advice 11/10/2024 Encounter Details Date Type Department Care Team (Late st Contact Info) Description 11/10/2024 Telephone Family Medicine [address] [place] [phone] Romeo Franks MD [address] [place] [address] [place] [phone] Advice Allergies Active Allergy Reactions Criticality Noted Date Comments Latex 04/04/2009 Penicillins Low 03/24/2023 "It makes my bottom sore" documented as of this encounter (statuses as of 11/10/2024) Medications Escitalopram Oxalate 20 MG Oral Tablet (Lexapro) Take 1 Tablet by mouth in the morning. 09/28/19 Active Austedo 12 MG Oral Tablet Take 2 Tablets by mouth in the morning and 2 Tablets before bedtime. 10/29/19 Active OneTouch UltraSoft LancetsIndications: Type 2 diabetes mellitus with diabetic chronic kidney disease, unspecified CKD stage, unspecified whether detention insulin use (HCC) Test once Daily Dx [...] days. Apply for pain 10 Patch 11/11/19 25 Active fentaNYL 50 MCG/HR Transdermal Patch 72 Hour (Duragesic)Indicati ons:Generalized osteoarthritis,Disc disorder of lumbar region Place 1 Patch over 72 hours topically on the skin every 3 days. Apply for pain 10 Patch 11/11/19 25 025 Discontin ued(Refil l) documented as of this encounter (statuses as of 11/10/2024) Active Problems Problem Noted Date Diagnosed Date [...] Hyperlipidemia with target LDL less than 70 06/0 11/2023 Type 2 diabetes mellitus wit h [...] as of this encounter (statuses as of 11/10/2024) Resolved Problems Problem Noted Date Diagnosed Date Resolved Date Alzheimer's disease, unspecified (CODE) 02/09/2024 04/07/2024 Type 2 diabetes mellitus wit h diabetic chronic kidney disease 11/13/2022 02/09/2024 Malignant neoplasm of uterus 11/04/2019 09/29/2024 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 documented as of this encounter (statuses as of 11/10/2024) Immunizations Name Administration Dates Next Due COVID-19 mRNA, LNP-s, No Pre serve, 2-Dose Series (Pfizer) 05/01/2021 COVID-19, MRNA-LNP, PF, 30 M CG/0.3 mL, 12 YRS AND ABOVE, IM (PFIZER-Comirnaty) 07/18/2023 Pneumococcal Conjugate Vacci ne, 20-valent ([id number]) 04/29/2023 Seasonal Influenza Vac., MDV , IM, [...] Telephone Encounter - Elizabeth Yap RN - 11/10/2024 3:35 PM EST message left for the pharmacy * Addendum Note - Romeo Franks MD - 11/10/2024 3:31 PM EST Addended by: ROMEO GAGE on: 11/10/2024 03:31 PM Modules accepted: Orders * Telephone Encounter - Romeo Franks MD - 11/10/2024 3:31 PM EST Please CANCEL the fentanyl patch Rx at [facility]. I have sent it to [facility] for her. Then let her know. * Telephone Encounter - Litzy Knutson supervisor plate pasting - 11/10/2024 2:49 PM EST Pt calling back and advised her that the message to is in review. Thank you, Litzy Knutson [facility] Treasury Consultant II [facility] ([facility]) 11/10/2024,2:49 PM * Telephone Encounter - Elizabeth Yap RN - 11/10/2024 1:01 PM EST Pt had an appt today * Telephone Encounter - Aracelis Dowling LPN - 11/10/2024 11:30 AM EST Pending for review * Telephone Encounter - Mary Browne OSA - 11/10/2024 11:04 AM EST Patient called regarding her prescription for her fentanyl patches. States that her original rx wassent to [facility], would like it sent to [facility] [place] as [facility] does not have at this time. Please call patient at [phone] documented in this encounter Plan of Treatment Upcoming Encounters Date Type Department Care Team (Late st Contact Info) Description 12/08/2024 10:00 AM EDT Office Visit [facility] [address] [facility] [place] [address] Selena Villanueva CRNP [address] [facility] [place] [address] 12/09/2024 1:00 PM EDT Office Visit Family [address] [phone] Lars Vidal CRNP [address] [place] [address] [place] [address] 01/19/2025 11:40 AM EDT Office Visit [address] [phone] Romeo Franks MD [address] [place] [address] [place] [address] 01/25/2025 3:40 PM EDT Office Visit Neurology [facility] [address] [place] [address] Otilio Bee MD [address] [place] [address] 03/16/2025 1:00 PM EDT Office Visit Family [address] [phone] Romeo Franks MD [address] [place] [address] [place] [address] Scheduled Procedures Name Priority Associated Diagnoses Date/Ti [...] 02/09/2024, 03/0 04/2023 CKD HGB USE SMARTSET 27445 02/08/202502/08, 01/26/2021, 01/20/2021, Additional history exists GFR 03/29/2025 09/29/2024, 06/0 11/2023, 04/29/2023, Additional history exists HbA1c 03/29/2025 09/29/2024, 06/0 11/2023, 04/29/2023, Additional history exists Depression Monitoring 04/12/2025 04/12/2024 CKD PHOS USE SMARTSET 90439 09/29/2025 09/29/2024, 0 10/05/1997 Diabetic Foot Exam [...] Not on filedocumented as of this encounter Visit Diagnoses Diagnosis GENERAL OSTEOARTHROSIS Generalized osteoarthrosis, unspecified site Disc disorder of lumbar region Other and unspecified disc disorder of lumbar region documented in this encounter Care Teams Music Theory Teacher Relationship Specialty Start Date End Date Romeo Franks MD [address] [place] [address] [place] [phone] PCP - General Family Medicine 11/18/22 documented as of this encounter
--- OUTSIDE RECORDS SUMMARY | 2024-12-06 20:51 | External Medical Summary | Summary of Care ---
Author Name Unknown Organization [facility] Address [address] [place] [address] Phone [phone] Care Team Providers Care Export Packer Name Role Phone Romeo Franks MD Primary Care Prov ider Reason for Referral * Medication Prior Authorization - Closed Specialty Diagnoses / Procedures Referred By Contac t Referred To Contact Diagnoses Generalized osteoarthritis Disc disorder of lumbar region Romeo Franks MD [address] [place] [address] [place] [address] Phone: tel: fax: Referral ID Status Reason Start Date Expiration Date Visits Re quested Visits Authorized [id number] Closed 999 999 Reason for Visit * Reason Onset Date Comments Advice 11/10/2024 Encounter Details Date Type Department Care Team (Late st Contact Info) Description 11/10/2024 Telephone Family Medicine [address] [place] [phone] Romeo Franks MD [address] [place] [address] [place] [phone] Advice Allergies Active Allergy Reactions Criticality Noted [...] kidney disease, unspecified CKD stage, unspecified whether custodial insulin use (HCC) Test once Daily Dx [...] (PFIZER-Comirnaty) 07/18/2023 Pneumococcal Conjugate Vacci ne, 20-valent ([id number]) 04/29/2023 Seasonal Influenza Vac., MDV , IM, [...] Please CANCEL the fentanyl patch Rx at [facility]. I have sent it to [facility] for her. Then let her know. * Telephone Encounter - Litzy Knutson product development chemist - 11/10/2024 2:49 PM EST Pt calling back and advised her that the message to is in review. Thank you, Litzy Knutson [facility] Oracle Reports Developer II [facility] ([facility]) 11/10/2024,2:49 [...] States that her original rx wassent to [facility], would like it sent to [facility] [place] as [facility] not have at this time. Please call patient at [phone] documented in this encounter Plan of Treatment Upcoming Encounters Date Type Department Care Team (Late st Contact Info) Description 12/08/2024 10:00 AM EDT Office Visit Cardiology, [facility] [address] [facility] [place] [address] Selena Villanueva CRNP [address] [facility] [place] [address] 12/09/2024 1:00 PM EDT Office Visit Family [address] [phone] Lars Vidal CRNP [address] [place] [address] [place] [address] 01/19/2025 11:40 AM EDT Office Visit [address] [phone] Romeo Franks MD [address] [place] [address] [place] [address] 01/25/2025 3:40 PM EDT Office Visit Neurology [facility] [address] [place] [address] Otilio Bee MD [address] [place] [address] 03/16/2025 1:00 PM EDT Office Visit Family [address] [phone] Romeo Franks MD [address] [place] [address] [place] [address] Scheduled Procedures Name Priority Associated Diagnoses Date/Ti [...] 02/09/2024, 03/0 04/2023 CKD HGB USE SMARTSET 72386 02/08/202502/08, 01/26/2021, 01/20/2021, Additional history exists GFR 03/29/2025 09/29/2024, 06/0 11/2023, 04/29/2023, Additional history exists HbA1c 03/29/2025 09/29/2024, 06/0 11/2023, 04/29/2023, Additional history exists Depression Monitoring 04/12/2025 04/12/2024 CKD PHOS USE SMARTSET 37830 09/29/2025 09/29/2024, 0 10/05/1997 Diabetic Foot Exam [...] region documented in this encounter Care Teams Export Packer Relationship Specialty Start Date End Date Romeo Franks MD [address] [place] [address] [place] [phone] PCP - General Family Medicine 11/18/22 documented as of this encounter
--- OUTSIDE RECORDS SUMMARY | 2024-12-06 20:51 | External Medical Summary | Summary of Care ---
Author Name Unknown Organization [facility] Address [address] [place] [address] Phone [phone] Care Team Providers Care Panel Lay Up Worker Name Role Phone Kristie Franks MD Primary Care Prov ider Reason for Visit * Reason Onset Date Comments Med Request 11/15/2024 Serve Back and S houlder Pain Encounter Details Date Type Department Care Team (Late st Contact Info) Description 11/15/2024 Telephone Family Medicine [address] [phone] Kristie Franks MD [address] [place] [phone] Med Request (Serve Back and Shoulder [...] kidney disease, unspecified CKD stage, unspecified whether long term acute care registered nurse insulin use (HCC) Test once Daily Dx [...] (PFIZER-Comirnat) 07/18/2023 Pneumococcal Conjugate Vacci ne, 20-valent ([id number]) 04/29/2023 Seasonal Influenza Vac., MDV , IM, [...] 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 Patient stated the patch is not working and the pain goes down into the buttocks, please send in medication as soon as possible. Please contact patient mobile number when medication has beensent. documented in this encounter Plan of Treatment Upcoming Encounters Date Type Department Care Team (Late st Contact Info) Description 12/08/2024 10:00 AM EDT Office Visit Cardiology, [facility] [address] [facility] [place] [address] Selena Villanueva CRNP [address] [place] [address] 12/09/2024 1:00 PM EDT Office Visit Family Medicine [address] [phone] Lars Vidal CRNP [address] [place] [address] [place] Jaram[place] [address] 01/19/2025 11:40 AM EDT Office Visit Family Medicine [address] [phone] Kristie Franks MD [address] [place] [address] [place] [address] 01/25/2025 3:40 PM EDT Office Visit Neurology [facility] 200 [place] [address] Otilio Bee MD [address] [place] [address] 03/16/2025 1:00 PM EDT Office Visit Family Medicine [address] [phone] Kristie Frankse, MD [address] [place] [address] [place] Jaramillo [address] Scheduled Procedures Name Priority [...] 02/09/2024, 03/0 04/2023 CKD HGB USE SMARTSET 14820 02/08/202502/08, 01/26/2021, 01/20/2021, Additional history exists GFR 03/29/2025 09/29/2024, 06/0 11/2023, 04/29/2023, Additional history exists HbA1c 03/29/2025 09/29/2024, 06/0 11/2023, 04/29/2023, Additional history exists Depression Monitoring 04/12/2025 04/12/2024 CKD PHOS USE SMARTSET 90316 09/29/2025 09/29/2024, 0 10/05/1997 Diabetic Foot Exam [...] filedocumented as of this encounter Care Teams Panel Lay Up Worker Relationship Specialty Start Date End Date Kristie Franks MD [address] [place] [address] [place] Jaram[place] [phone] PCP - General Family Medicine 11/18/22 documented as of this encounter
--- OUTSIDE RECORDS SUMMARY | 2024-12-06 20:51 | External Medical Summary | Summary of Care ---
Author Name Unknown Organization [facility] Address [address] [place] [address] Phone [phone] Care Team Providers Care Pathology Lab Technician Name Role Phone Romeo Franks MD Primary Care Prov ider Reason for Referral * Medication Prior Authorization - Closed Specialty Diagnoses / Procedures Referred By Contac t Referred To Contact Diagnoses Generalized osteoarthritis Disc disorder of lumbar region Romeo Franks MD [address] [place] [address] [place] Jaramillo [address] Phone: tel: fax: Referral ID Status Reason Start Date Expiration Date Visits Re quested Visits Authorized [id number] Closed 999 999 Reason for Visit * Reason Onset Date Comments Advice 11/10/2024 Encounter Details Date Type Department Care Team (Late st Contact Info) Description 11/10/2024 Telephone Family Medicine [address] [place] [phone] Romeo Franks MD [address] [place] [address] [place] Jaramillo [phone] Advice Allergies Active Allergy Reactions Criticality Noted [...] kidney disease, unspecified CKD stage, unspecified whether mcc insulin use (HCC) Test once Daily Dx [...] (PFIZER-Comirnaty) 07/18/2023 Pneumococcal Conjugate Vacci ne, 20-valent ([id number]) 04/29/2023 Seasonal Influenza Vac., MDV , IM, [...] Please CANCEL the fentanyl patch Rx at [facility]. I have sent it to [facility] for her. Then let her know. * Telephone Encounter - Litzy Knutson dog food dough mixer - 11/10/2024 2:49 PM EST Pt calling back and advised her that the message to is in review. Thank you, Litzy Knutson [facility] Track Rider II [facility] ([facility]) 11/10/2024,2:49 [...] States that her original rx wassent to [facility], would like it sent to [facility] [place] as [facility] does not have at this time. Please call patient at [phone] documented in this encounter Plan of Treatment Upcoming Encounters Date Type Department Care Team (Late st Contact Info) Description 12/08/2024 10:00 AM EDT Office Visit Cardiology, [facility] [address] [facility] [place] [address] Selena Villanueva CRNP 400 [facility] [place] [address] 12/09/2024 1:00 PM EDT Office Visit Family [address] [phone] Lars Vidal CRNP [address] [place] [address] [place] Jaram[place] [address] 01/19/2025 11:40 AM EDT Office Visit [address] [phone] Romeo Franks MD [address] [place] [address] [place] Jar[place] [address] 01/25/2025 3:40 PM EDT Office Visit Neurology [facility] [address] [place] [address] Otilio Bee MD [address] [place] [address] 03/16/2025 1:00 PM EDT Office Visit Family [address] [phone] Romeo Franks MD [address] [place] [address] [place] Jaram[place] [address] Scheduled Procedures Name Priority Associated Diagnoses Date/Ti [...] 02/09/2024, 03/0 04/2023 CKD HGB USE SMARTSET 98995 02/08/202502/08, 01/26/2021, 01/20/2021, Additional history exists GFR 03/29/2025 09/29/2024, 06/0 11/2023, 04/29/2023, Additional history exists HbA1c 03/29/2025 09/29/2024, 06/0 11/2023, 04/29/2023, Additional history exists Depression Monitoring 04/12/2025 04/12/2024 CKD PHOS USE SMARTSET 49793 09/29/2025 09/29/2024, 0 10/05/1997 Diabetic Foot Exam [...] region documented in this encounter Care Teams Pathology Lab Technician Relationship Specialty Start Date End Date Romeo Franks MD [address] [place] [address] B[place] Jaramillo [phone] PCP - General Family Medicine 11/18/22 documented as of this encounter
--- OUTSIDE RECORDS SUMMARY | 2024-12-06 20:51 | External Medical Summary | Summary of Care ---
Author Name Unknown Organization [facility] Address [address] [place] [address] Phone [phone] Care Team Providers Care Missile Technician Name Role Phone Kristie Franks MD Primary Care Prov ider Reason for Visit * Reason Onset Date Comments Med Request 11/15/2024 Serve Back and S houlder Pain Encounter Details Date Type Department Care Team (Late st Contact Info) Description 11/15/2024 Telephone Family Medicine [address] [phone] Kristie Franks MD [address] [place] [address] Med Request (Serve Back and Shoulder [...] kidney disease, unspecified CKD stage, unspecified whether intermediate accountant insulin use (HCC) Test once Daily Dx [...] (PFIZER-Comirnat) 07/18/2023 Pneumococcal Conjugate Vacci ne, 20-valent ([id number]) 04/29/2023 Seasonal Influenza Vac., MDV , IM, [...] 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 Patient stated the patch is not working and the pain goes down into the buttocks, please send in medication as soon as possible. Please contact patient mobile number when medication has beensent. documented in this encounter Plan of Treatment Upcoming Encounters Date Type Department Care Team (Late st Contact Info) Description 12/08/2024 10:00 AM EDT Office Visit Cardiology, [facility] [address] [facility] [place] [address] Selena Villanueva CRNP 400 [place] [address] 12/09/2024 1:00 PM EDT Office Visit Family Medicine [address] [phone] Lars Vidal CRNP [address] [place] [address] [place] Jaram[place] [address] 01/19/2025 11:40 AM EDT Office Visit Family Medicine [address] [phone] Kristie Franks MD [address] [place] [address] [place] Jaram[place] [address] 01/25/2025 3:40 PM EDT Office Visit Neurology [facility] 200 [place] [address] Otilio eBe MD [address] [place] [address] 03/16/2025 1:00 PM EDT Office Visit Family Medicine [address] [phone] Kristie Frankse, MD [address] [place] [address] B[place] Jaramillo [address] Scheduled Procedures Name Priority [...] 02/09/2024, 03/0 04/2023 CKD HGB USE SMARTSET 04872 02/08/202502/08, 01/26/2021, 01/20/2021, Additional history exists GFR 03/29/2025 09/29/2024, 06/0 11/2023, 04/29/2023, Additional history exists HbA1c 03/29/2025 09/29/2024, 06/0 11/2023, 04/29/2023, Additional history exists Depression Monitoring 04/12/2025 04/12/2024 CKD PHOS USE SMARTSET 67806 09/29/2025 09/29/2024, 0 10/05/1997 Diabetic Foot Exam [...] filedocumented as of this encounter Care Teams Missile Technician Relationship Specialty Start Date End Date Kristie Franks MD [address] [place] [address] [place] Jaramillo [phone] PCP - General Family Medicine 11/18/22 documented as of this encounter
--- OUTSIDE RECORDS SUMMARY | 2024-12-06 20:51 | External Medical Summary | Summary of Care ---
Author Name Unknown Organization [facility] Address [address] [place] [address] Phone [phone] Care Team Providers Care Painter Ordnance Name Role Phone Kristie Franks MD Primary Care Prov ider Reason for Visit * Reason Onset Date Comments No Show 11/10/2024 [facility] No Show Auto mation Encounter Details Date Type Department Care Team (Late st Contact Info) Description 11/10/2024 Telephone Audiology [facility] [address] [place] [address] Brigitte Mcintyre Au.D. [address] [place] [phone] No Show ([place] No Show Automation) Allergies Active Allergy Reactions Criticality Noted Date [...] kidney disease, unspecified CKD stage, unspecified whether long-term insulin use (HCC) Test once Daily Dx [...] mRNA, LNP-s, No Pre serve, 2-Dose Series ([employer]) 05/01/2021 COVID-19, MRNA-LNP, PF, 30 M CG/0.3 mL, 12 YRS AND ABOVE, IM (PFIZER-Comirnat) 07/18/2023 Pneumococcal Conjugate Vacci ne, 20-valent ([id number]) 04/29/2023 Seasonal Influenza Vac., MDV , IM, [...] encounter Miscellaneous Notes * Telephone Encounter - Kerwin, No Show - 11/10/2024 2:03 PM EST Dear Chante Harvey, Looks like you missed an appointment with BRIGITTE MCINTYRE on 11/04/2024 at 10:00 AM. If you haven't already rescheduled, you have a couple of options: Reschedule in [email or web address] Call us at [phone] Can't make a future appointment? Cancel and let someone else have your spot! It's easy to do via Tipser or by calling us. Thanks for trusting [facility] with your care. We hope to see you back in our office soon. Sincerely, BRIGITTE MCINTYRE documented in this encounter Plan of Treatment Upcoming Encounters Date Type Department Care Team (Late st Contact Info) Description 12/08/2024 10:00 AM EDT Office Visit Cardiology, [address] [place] [address] Selean Villanueva CRNP [address] [place] [address] 12/09/2024 1:00 PM EDT Office Visit [address] [phone] Lars Vidal CRNP [address] [place] [address] [place] Jar[place] [phone] 01/19/2025 11:40 AM EDT Office Visit [address] [phone] Kristie Franks MD [address] [place] [address] [place] [address] 01/25/2025 3:40 PM EDT Office Visit Neurology [facility] [address] [place] [address] Otilio Bee MD [address] [place] [address] 03/16/2025 1:00 PM EDT Office Visit [address] [phone] Kristie Franks MD [address] [place] [address] [place] Jaram[place] [phone] Scheduled Procedures Name Priority Associated Diagnoses Date/Ti [...] 02/09/2024, 03/0 04/2023 CKD HGB USE SMARTSET 94187 02/08/202502/08, 01/26/2021, 01/20/2021, Additional history exists GFR 03/29/2025 09/29/2024, 06/0 11/2023, 04/29/2023, Additional history exists HbA1c 03/29/2025 09/29/2024, 06/0 11/2023, 04/29/2023, Additional history exists Depression Monitoring 04/12/2025 04/12/2024 CKD PHOS USE SMARTSET 72250 09/29/2025 09/29/2024, 0 10/05/1997 Diabetic Foot Exam [...] filedocumented as of this encounter Care Teams Painter Ordnance Relationship Specialty Start Date End Date Kristie Franks MD [address] [place] [address] [place] Jaram[place] [address] PCP - General Family Medicine 11/18/22 documented as of this encounter
--- OUTSIDE RECORDS SUMMARY | 2024-12-06 20:51 | External Medical Summary | Summary of Care ---
Author Name Unknown Organization [facility] Address [address] [place] [address] Phone [phone] Care Team Providers Care Button Breaker Name Role Phone Romeo Franks MD Primary Care Prov ider Reason for Referral * Medication Prior Authorization - Closed Specialty Diagnoses / Procedures Referred By Contac t Referred To Contact Diagnoses Generalized osteoarthritis Disc disorder of lumbar region Romeo Franks MD [address] [place] [address] [place] Jaram[place] [address] Phone: tel: fax: Referral ID Status Reason Start Date Expiration Date Visits Re quested Visits Authorized [id number] Closed 999 999 Reason for Visit * Reason Onset Date Comments Advice 11/10/2024 Encounter Details Date Type Department Care Team (Late st Contact Info) Description 11/10/2024 Telephone Family Medicine [address] [place] [phone] Romeo Franks MD [address] [place] [address] [place] Jar[place] [phone] Advice Allergies Active Allergy Reactions Criticality Noted [...] (PFIZER-Comirnaty) 07/18/2023 Pneumococcal Conjugate Vacci ne, 20-valent ([id number]) 04/29/2023 Seasonal Influenza Vac., MDV , IM, [...] Please CANCEL the fentanyl patch Rx at [facility]. I have sent it to [facility] for her. Then let her know. * Telephone Encounter - Litzy Knutson v block saw operator - 11/10/2024 2:49 PM EST Pt calling back and advised her that the message to is in review. Thank you, Litzy Knutson [facility] Slab Installer II [facility] ([facility]) 11/10/2024,2:49 [...] States that her original rx wassent to [facility], would like it sent to [facility] as [facility] does not have at this time. Please call patient at [phone] documented in this encounter Plan of Treatment Upcoming Encounters Date Type Department Care Team (Late st Contact Info) Description 12/08/2024 10:00 AM EDT Office Visit Cardiology, [facility] [address] [facility] [place] [address] Selena Villanueva CRNP 400 [facility] [place] [address] 12/09/2024 1:00 PM EDT Office Visit Family [address] [phone] Lars Vidal CRNP [address] [place] [address] [place] [address] 01/19/2025 11:40 AM EDT Office Visit [address] [phone] Romeo Franks MD [address] [place] [address] [place] [address] 01/25/2025 3:40 PM EDT Office Visit Neurology [facility] [address] [place] [address] Otilio Bee MD [address] [place] [address] 03/16/2025 1:00 PM EDT Office Visit Family [address] [phone] Romeo Franks MD [address] [place] [address] [place] Jar[place] [phone] Scheduled Procedures Name Priority Associated Diagnoses Date/Ti [...] 02/09/2024, 03/0 04/2023 CKD HGB USE SMARTSET 43675 02/08/202502/08, 01/26/2021, 01/20/2021, Additional history exists GFR 03/29/2025 09/29/2024, 06/0 11/2023, 04/29/2023, Additional history exists HbA1c 03/29/2025 09/29/2024, 06/0 11/2023, 04/29/2023, Additional history exists Depression Monitoring 04/12/2025 04/12/2024 CKD PHOS USE SMARTSET 16354 09/29/2025 09/29/2024, 0 10/05/1997 Diabetic Foot Exam [...] region documented in this encounter Care Teams Button Breaker Relationship Specialty Start Date End Date Romeo Franks MD [address] [place] [address] [place] Jaramillo [phone] PCP - General Family Medicine 11/18/22 documented as of this encounter
--- OUTSIDE RECORDS SUMMARY | 2024-12-06 20:51 | External Medical Summary | Summary of Care ---
Author Name Unknown Organization [facility] Address [address] [place] [address] Phone [phone] Care Team Providers Care Clinical Research Analyst Name Role Phone Kristie Franks MD Primary Care Prov ider Reason for Visit * Reason Onset Date Comments Order Request 11/03/2024 Encounter Details Date Type Department Care Team (Late st Contact Info) Description 11/03/2024 Telephone Family Medicine [address] [phone] Kristie Franks MD [address] [place] [address] [place] [phone] Order Request Allergies Active Allergy Reactions [...] kidney disease, unspecified CKD stage, unspecified whether terminal gauger insulin use (HCC) Test once Daily Dx [...] mRNA, LNP-s, No Pre serve, 2-Dose Series (codesy) 05/01/2021 COVID-19, MRNA-LNP, PF, 30 M CG/0.3 mL, 12 YRS AND ABOVE, IM (PFIZER-Comirnaty) 07/18/2023 Pneumococcal Conjugate Vacci ne, 20-valent ([id number]) 04/29/2023 Seasonal Influenza Vac., MDV , IM, [...] leave a message on identified VM with [employer] number. If needed the number is * Telephone Encounter - Celsa Tolbert OSA - 11/11/2024 1:15 PM EST Pt is calling for a phone number for [employer] so she can check the status of the chair. Pt is still waiting. Please return call. * Telephone Encounter - Carol Tinoco CMA - 11/09/2024 4:12 PM EST Order submitted to [facility]. Called and advised pt order submitted advised could take up too5 days business days * Telephone Encounter - Susie Valdes CPhT - 11/09/2024 12:43 PM EST Patient checking status of her lift chair. She says the chair script cannot be sent to [facility] because they do not accept the Waiver Program benefits. Thank you, Susie Valdes CPhT [employer] Plant Supervisor [facility] ([facility]) 11/09/2024, 12:43 PM * Telephone Encounter - Yasmeen Butler CMA - 11/04/2024 1:37 PM EST Lift chair has to go to [facility] and can be requested to go to [facility]. * Telephone Encounter - Pebbles Ramos OSA - 11/04/2024 10:18 AM EST Patient calling in to check on the status of previous message. Patient Called within 48 hour timeframe. Reminded patient of 48 hour turn-around time. * Telephone Encounter - Marj Lucas LPN - 11/04/2024 9:46 AM EST [facility] Nurse In-basket does not manage request for [...] Asking for the order to go to [facility] * Telephone Encounter - Veronica [...] wish to have their order completed at? [facility] Fax Number, if applicable: N/A Pt states [...] 12/08/2024 10:00 AM EDT Office Visit Cardiology, [facility] 132 [facility] [place] [address] Selena Villanueva CRNP [address] [place] [address] [place] [phone] 12/09/2024 1:00 PM EDT Office Visit Family Medicine [address] [phone] Lars Vidal CRNP [address] [place] [address] [place] [phone] 01/19/2025 11:40 AM EDT Office Visit [address] [phone] Kristie Franks MD [address] [place] [address] [place] [address] 01/25/2025 3:40 PM EDT Office Visit Neurology [facility] [place] [address] [place] [address] Otilio Bee MD [address] [place] [address] 03/16/2025 1:00 PM EDT Office Visit [address] [phone] Kristie Franks MD [address] [place] [address] [place] [phone] Scheduled Procedures Name Priority Associated Diagnoses Date/Ti [...] 02/09/2024, 03/0 04/2023 CKD HGB USE SMARTSET 43300 02/08/202502/08, 01/26/2021, 01/20/2021, Additional history exists GFR 03/29/2025 09/29/2024, 06/0 11/2023, 04/29/2023, Additional history exists HbA1c 03/29/2025 09/29/2024, 06/0 11/2023, 04/29/2023, Additional history exists Depression Monitoring 04/12/2025 04/12/2024 CKD PHOS USE SMARTSET 63983 09/29/2025 09/29/2024, 0 10/05/1997 Diabetic Foot Exam [...] filedocumented as of this encounter Care Teams Clinical Research Analyst Relationship Specialty Start Date End Date Kristie Franks MD [address] [place] [address] [place] Jaram[place] [phone] PCP - General Family Medicine 11/18/22 documented as of this encounter
--- OUTSIDE RECORDS SUMMARY | 2024-12-06 20:51 | External Medical Summary | Summary of Care ---
Author Name Unknown Organization [facility] Address [address] [facility] [place] [place] [address] Phone [phone] Care Team Providers Care Pinion And Wheel Truer Name Role Phone Kristie Franks MD Primary Care Prov ider Reason for Visit * Reason Comments Acute Encounter Details Date Type Department Care Team (Late st Contact Info) Description 11/02/2024 3:20 PM EST Office Visit Family Medicine [address] [place] [phone] Lars Vidal [address] [place] [address] Disc disorder of lumbar region*; Chronic pain syndrome; Neuroleptic-induced parkinsonism (HCC); Ambulatory dysfunction Allergies Active Allergy Reactions Criticality Noted Date Comments Latex 04/04/2009 Penicillins Low 03/24/2023 "It makes my bottom sore" documented as of this encounter (statuses as of 11/15/2024) Medications Escitalopram Oxalate 20 MG Oral Tablet (Lexapro) Take 1 Tablet by mouth in the morning. 023 Active Austedo 12 MG Oral Tablet Take 2 Tablets by mouth in the morning and 2 Tablets before bedtime. 023 Active OneTouch UltraSoft LancetsIndications :Type 2 diabetes mellitus with diabetic chronic kidney disease, unspecified CKD stage, unspecified whether alf insulin use (HCC) Test once Daily Dx E11.9 100 Each 3 023 Active OLANZapine 10 MG Oral Tablet [...] 025 Active Benzonatate 100 MG Oral Capsule (Tessalon Perles)Indications :Acute cough Take 1 Capsule by mouth [...] for pain 10 Patch 025 2024 Discontinued Doxycycline Hyclate 100 MG Oral CapsuleIndications :Acute cough Take 1 Capsule by mouth in the morning and 1 Capsule before bedtime. Do all this for 10 days. Until gone.. 20 Capsule 025 2024 Discontinued(M edication List Clean Up) documented as of this encounter (statuses as of 11/15/2024) Active Problems Problem Noted Date Diagnosed Date [...] as of this encounter (statuses as of 11/15/2024) Resolved Problems Problem Noted Date Diagnosed Date Resolved Date Alzheimer's disease, unspecified (CODE) 02/09/2024 04/07/2024 Type 2 diabetes mellitus wit h diabetic chronic kidney disease 11/13/2022 02/09/2024 Malignant neoplasm of uterus 11/04/2019 09/29/2024 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 documented as of this encounter (statuses as of 11/15/2024) Immunizations Name Administration Dates Next Due COVID-19 mRNA, LNP-s, No Pre serve, 2-Dose Series (Pfizer) 05/01/2021 COVID-19, MRNA-LNP, PF, 30 M CG/0.3 mL, 12 YRS AND ABOVE, IM (PFIZER-Comirnaty) 07/18/2023 Pneumococcal Conjugate Vacci ne, 20-valent ([id number]) 04/29/2023 Seasonal Influenza Vac., MDV , IM, 0.5 mL (Fluzone) 08/21/2013,08/21/2012,07/02/2011,2009,06/08/2009,06/27/2008 Seasonal Influenza, High Dos e, Trivalent, PF, IM (Fluzone HD) 07/05/2024 Seasonal Influenza, Quadriva lent Hd (Fluzone Hd) 07/18/2023 TDAP, Age 7 and older, IM (Adacel) 02/29/2008 documented as of this encounter Social History Tobacco Use Types Packs/Day Years Used Date Smoking Tobacco: Never Smokeless Tobacco: Never Tobacco Cessation:Counseling Given: Not Answered Alcohol Use Standard Drinks/Week Comments No 0 [...] 04/22/2024 Does the household have a re lar source of income? (Household - for ages [...] on file documented as of this encounter Last Filed Vital Signs Vital Sign Reading Time Taken Comments Blood Pressure 122/76 11/02/2024 2:54 PM EST Pulse 70 11/02/2024 2:54 PM EST Temperature 36 °C (96.8 °F) 11/02/2024 2:54 PM EST Respiratory Rate 16 11/02/2024 2:54 PM EST Oxygen Saturation 97% 11/02/2024 2:54 PM EST Inhaled Oxygen Concentration - - Weight 85.7 kg (189 lb) 11/02/2024 2:54 PM EST Height - - Body Mass Index 31.45 09/29/2024 8:27 AM EST documented in this encounter Progress Notes * Lars Vidal CRNP - 11/02/2024 3:03 PM EST Images from the original note were not included. History of Present Illness Chante Harvey is a 74 year old female that presents for Acute Power recliner broke and has not slept for 2 days. Sleeps in power recliner because of chronic pain back pain. Reports her current chair is about 4 years ago. Unsure where she got it from, but believes it came from a [employer]. Currently using fentanyl patches which are not helping. Patient Active Problem List Diagnosis Major depressive disorder GENERAL OSTEOARTHROSIS MEDICATION USE AGREEMENT Restless legs syndrome Disc disorder of lumbar region Bipolar disorder (HCC) Other disorder of eating of nonorganic origin HTN, GOAL BELOW 140/90 Kidney disease, chronic, stage II (GFR 60-89 ml/min) Anemia Obesity, Class I, BMI 30.0-34.9 (see actual BMI) Type 2 diabetes mellitus with hemoglobin A1c goal of less than 7.0% (HCC) Hyperlipidemia with target LDL less than 70 History of CVA (cerebrovascular accident) Tremors of nervous system Drug induced constipation Spinal stenosis of lumbar region without neurogenic claudication 2-part displaced fracture of surgical neck of left humerus, initial encounter for closed fracture Anxiety Asthma Closed fracture of distal fibula Decreased hearing, bilateral Esophageal reflux Backache GI bleed History of total knee arthroplasty, right Hx of hysterectomy, total Insomnia Fracture of lower limb Obstructive sleep apnea (adult) (pediatric) Occipital cerebral infarction (HCC) Palpitations Chronic obstructive pulmonary disease (HCC) Pulmonary emphysema (HCC) Vitamin D deficiency Parkinson's disease (HCC) Major depressive disorder, single episode, moderate (HCC) Idiopathic cardiomyopathy (HCC) Type 2 diabetes mellitus with stage 3a chronic kidney disease, without long-term current use of insulin (HCC) Neuroleptic-induced parkinsonism (HCC) Intermittent asthma with reliever use up to twice per week Current Outpatient Medications Medication Sig Dispense Refill Escitalopram Oxalate 20 MG Oral Tablet (Lexapro) Take 1 Tablet by mouth in the morning. Austedo 12 MG Oral Tablet Take 2 Tablets by mouth in the morning and 2 Tablets before bedtime. OneTouch UltraSoft Lancets Test once Daily Dx E11.9 100 Each 3 OLANZapine 10 MG Oral Tablet (zyPREXA) TAKE ONE TABLET BY MOUTH DAILY (Patient not taking: Reportedon 09/07/2024) 45 Tablet 0 busPIRone HCl 10 MG Oral Tablet (Buspar) Take 1 Tablet by mouth in the morning and 1 Tablet before bedtime. Clopidogrel Bisulfate 75 MG Oral Tablet (pLAVix) Take 1 Tablet by mouth in the morning. 90 Tablet 1 metFORMIN HCl ER 500 MG Oral Tablet Extended Release 24 Hour (Glucophage XR) Take 1 Tablet by mouthin the morning. 90 Tablet 3 Lisinopril 10 MG Oral Tablet (Prinivil) Take 1 Tablet by mouth in the morning. 90 Tablet 3 Carvedilol 12.5 MG Oral Tablet (Coreg) Take 1 Tablet by mouth in the morning and 1 Tablet before bedtime. 180 Tablet 3 Polyethylene Glycol 3350 17 GM/SCOOP Oral Powder (MiraLax) Take 17 g by mouth as needed for Constipation. Dissolve one heaping tablespoon in 8 ounces of water or juice. Take one dose once a day untilyou have a bowel movement. If no bowel movement after 3 days, take one dose twice a day until you have a bowel movement. If still no bowel movement after 3 days, call your PCP. (Patient not taking: Reported on 09/07/2024) 238 g 1 Fluticasone Propionate 50 MCG/ACT Nasal Suspension (Flonase) Administer 2 Sprays into each nostril in the morning. 10 mL 5 hydrOXYzine HCl 50 MG Oral Tablet Take 1 Tablet by mouth at bedtime. 30 Tablet 5 oxyCODONE-Acetaminophen 10-325 MG Oral Tablet Take 1 Tablet by mouth in the morning and 1 Tablet inthe evening. 10 Tablet 0 Rosuvastatin Calcium 20 MG Oral Tablet (Crestor) TAKE 1 TABLET BY MOUTH EVERY MORNING 90 Tablet 1 fentaNYL 25 MCG/HR Transdermal Patch 72 Hour (Duragesic) Place 1 Patch over 72 hours topically on the skin every 3 days. Apply for pain 10 Patch 0 Benzonatate 100 MG Oral Capsule (Tessalon Perles) Take 1 Capsule by mouth 3 times a day as needed for Cough. Do not cut, crush, or chew. 50 Capsule 1 traZODone HCl 100 MG Oral Tablet (Desyrel) Take 2 Tablets by mouth at bedtime. 60 Tablet 3 Pramipexole Dihydrochloride 0.5 MG Oral Tablet (Mirapex) Take 1 Tablet by mouth at bedtime. 90 Tablet 1 No current facility-administered medications for this visit. Review of patient's allergies indicates: Allergen Reactions Latex Penicillins "It makes my bottom sore" Past Medical History: Diagnosis Date Depressive disorder, not elsewhere classified Generalized osteoarthritis HTN, goal below 140/90 Kidney disease, chronic, stage II (GFR 60-89 ml/min) Obesity, Class I, BMI 30.0-34.9 (see actual BMI) 05/01/2013 Restless legs syndrome Secondary parkinsonism (HCC) Past Surgical History: Procedure Laterality Date ANESTH, TOTAL KNEE REPLACEMENT rt BUNION SURGERY, SIMPLE REMOVAL Bunion Correction,Simple COLONOSCOPY 09/08/1984 polyps removed COLONOSCOPY, DIAGNOSTIC (RECTUM) 05/09/2010 wnl COLONOSCOPY, DIAGNOSTIC (RECTUM) 03/24/2023 poor prep, repeat / COLONOSCOPY FLEXIBLE PROXIMAL DIAGNOSTIC performed by Nohemi Montejo DO at ENDOSCOPY [facility] GASTRIC REVISION FOR OBESITY MAMMOGRAM SCREENING BILATERAL Bilateral 11/12/2022 scattered fibroglandular densities, category 1 repeat 1 year OTHER (INFORMATION) 07/13/2009 R shoulder surgery REPAIR INITIAL INGUINAL HERNIA REDUCIBLE AGE 5 OR MORE bilateral TOTAL ABD HYSTERECTOMY W/WO REMOVAL OF TUBE(S) VASC DUPLEX CAROTID BILAT 03/07/2009 no disease Social History Socioeconomic History Marital status: Spouse name: Not on file Number of children: 4 Years of education: Not on file Highest education level: Not on file Occupational History Occupation: unemployed Tobacco Use Smoking status: Never Smokeless tobacco: Never Vaping Use Vaping status: Never Used Substance and Sexual Activity Alcohol use: No Drug use: No Sexual activity: Not Currently Other Topics Concern Not on file Social History Narrative Not on file Social Needs Financial Resource Strain: Low Risk (04/22/2024) Financial Resource Strain Do you have any trouble paying for your medications, or do you think you might in the future? (Adult - for ages 18 years and over): No Does your family have trouble paying for medicine? (Household - for ages 0-17 years): Not on file Food Insecurity: No Food Insecurity (04/22/2024) Food Insecurity Worried About Running Out of Food in the Last Year: Never true Ran Out of Food in the Last Year: Never true Do you need food for this week? (Adult - for ages 18 years and over): No Transportation Needs: No Transportation Needs (04/22/2024) Transportation Needs Do you have trouble getting a ride to medical visits or work? (Adult - for ages 18 years and over):Not on file Does your family have a hard time getting a ride to doctors’ visits? (Household - for ages 0-17 years): Not on file Has lack of transportation kept you from medical appointments, meetings, work, or from getting things needed for daily living? Check all that apply. (Adult - for ages 18 years and over): No Do you (or your family) have trouble finding or paying for a ride (transportation)? (Household - for ages 0-17 years): Not on file Social Connections: Socially Integrated (04/22/2024) Social Connections How often do you feel lonely or isolated from those around you? (Adult - for ages 18 years and over): Sometimes Housing Stability: Low Risk (04/22/2024) Housing Stability Do you currently live in a nursing home or have no steady place to sleep at night? (Adult - for ages 18 years and over): No Do you think you are at risk of becoming homeless? (Adult - for ages 18 years and over): Not on file Does your family worry about paying for your home or becoming homeless? (Household - for ages 0-17 years): Not on file Are you homeless or worried that you might be in the future? (Adult - for ages 18 years and over): No Are you (or your family) homeless or worried that you might be in the future? (Household - for ages0-17 years): Not on file Physical Exam Vitals: 11/02/24 1454 Temp: 96.8 °F (36 °C) Pulse: 70 Resp: 16 SpO2: 97% BP: 122/76 General: A&Ox3 and no distress Heart: regular rate and rhythm, no murmur Lung: clear to auscultation Skin: warm and dry Labs reviewed: BMP Assessment and Plan Disc disorder of lumbar region - DURABLE MEDICAL EQUIPMENT Chronic pain syndrome - DURABLE MEDICAL EQUIPMENT Neuroleptic-induced parkinsonism (HCC) - DURABLE MEDICAL EQUIPMENT Ambulatory dysfunction - DURABLE MEDICAL EQUIPMENT - will try to get patient a new power chair as she needs this because of chronic back pain - has follow up with PCP Dr. Dangelo next week and can discuss pain management option Wrap-Up Follow Up: Return if symptoms worsen or fail to improve. Time: I spent a total of 10-19 minutes (exact time 15 mins) on the date of service in preparation, delivery, and documentation of the care provided to Chante Harvey excluding any time spent in the performance of separately billed services. Cosigned by Massimo Falk MD at 11/03/2024 9:45 PM EST documented in this encounter Nursing Notes * Mahnaz Fowler LPN - 11/15/2024 2:05 PM EDT Supplier Change To better serve your patient's needs, order [id number] for Chante Harvey (1950) is now being fulfilled by [facility] [employer]. If you need assistance with this order, please call . We will send one more email notification once the order has been delivered. [facility] * Mahnaz Fowler LPN - 11/04/2024 4:12 PM EST Order [id number] for Chante Harvey (1950) is being fulfilled by [facility]. If you needassistance with this order, please call . We will send one more email notification once the order has been delivered. [facility] * Mahnaz Fowler LPN - 11/04/2024 10:57 AM EST [facility] done for the power lift recliner chair. * Mahnaz Fowler LPN - 11/02/2024 2:48 PM EST Check up C/o " back is killing her" and can't sleep do to the pain. States she doesn't know her meds. Her grandaughter helps her with her meds. States she is using Fentanyl patches but they don't work. Lift chair motor doesn't work. Needs new one. Only place she can sleep because of her back. documented in this encounter Plan of Treatment Upcoming Encounters Date Type Department Care Team (Late st Contact Info) Description 12/08/2024 10:00 AM EDT Office Visit Cardiology, [facility] [address] [facility] [place] [address] Selena Villanueva CRNP [address] [facility] [place] [address] 12/09/2024 1:00 PM EDT Office Visit Family [address] [phone] Lars Vidal CRNP [address] [place] [address] [place] [address] 01/19/2025 11:40 AM EDT Office Visit Family [address] [place] [phone] Kristie Franks MD [address] [place] [address] [place] [address] 01/25/2025 3:40 PM EDT Office Visit Neurology [facility] [address] [facility] [place] [address] Otilio Bee MD [address], [place] [id number] 03/16/2025 1:00 PM EDT Office Visit Family Medicine [address] [place] [phone] Kristie Franks MD [address] [place] [address] [place] [id number] Scheduled Procedures Name Priority Associated Diagnoses Date/Ti [...] 02/09/2024, 03/0 04/2023 CKD HGB USE SMARTSET 91360 02/08/202502/08, 01/26/2021, 01/20/2021, Additional history exists GFR 03/29/2025 09/29/2024, 06/0 11/2023, 04/29/2023, Additional history exists HbA1c 03/29/2025 09/29/2024, 06/0 11/2023, 04/29/2023, Additional history exists Depression Monitoring 04/12/2025 04/12/2024 CKD PHOS USE SMARTSET 79390 09/29/2025 09/29/2024, 0 10/05/1997 Diabetic Foot Exam [...] as of this encounter Visit Diagnoses Diagnosis Disc disorder of lumbar region- Primary Other and unspecified disc disorder of lumbar region Chronic pain syndrome Neuroleptic-induced parkinsonism (HCC) Secondary Parkinsonism Ambulatory dysfunction documented in this encounter Care Teams Pinion And Wheel Truer Relationship Specialty Start Date End Date Kristie Franks MD [address] [place] [address] [place] [id number] PCP - General Family Medicine 11/18/22 documented as of this encounter
--- OUTSIDE RECORDS SUMMARY | 2024-12-06 20:52 | External Medical Summary | Summary of Care ---
Author Name Unknown Organization [facility] Address [address] [place] [facility] [place] [address] Phone [phone] Care Team Providers Care Tape Machine Tailer Name Role Phone Kristie Franks MD Primary Care Prov ider Reason for Visit * Reason Comments Acute Encounter Details Date Type Department Care Team (Late st Contact Info) Description 11/02/2024 3:20 PM EST Office Visit Family Medicine [address] [place] [phone] Lars Vidal [address] [place] [address] Disc disorder of lumbar region*; Chronic pain syndrome; Neuroleptic-induced parkinsonism (HCC); Ambulatory dysfunction Allergies Active Allergy Reactions Criticality Noted Date Comments Latex 04/04/2009 Penicillins Low 03/24/2023 "It makes my bottom sore" documented as of this encounter (statuses as of 11/04/2024) Medications Escitalopram Oxalate 20 MG Oral Tablet (Lexapro) Take 1 Tablet by mouth in the morning. 09/28/19 Active Austedo 12 MG Oral Tablet Take 2 Tablets by mouth in the morning and 2 Tablets before bedtime. 10/29/19 23 Active OneTouch UltraSoft LancetsIndications: Type 2 diabetes mellitus with diabetic chronic kidney disease, unspecified CKD stage, unspecified whether intermediate manager insulin use (HCC) Test once Daily Dx [...] in the morning. 10 mL 5 07/05/20 Active hydrOXYzine HCl 50 MG Oral TabletIndications:A djustment insomnia Take 1 Tablet by mouth at bedtime. 30 Tablet 5 07/05/20 Active oxyCODONE-Acetamino phen 10-325 MG Oral TabletIndications:D isc disorder of lumbar region,Chronic pain syndrome,Chronic right-sided low back pain with right-sided sciatica Take 1 Tablet by mouth in the morning and 1 Tablet in the evening. 10 Tablet 09/25/19 25 Active Rosuvastatin Calcium 20 MG Oral Tablet (Crestor)Indication s:Hyperlipidemia with target LDL less than 70 TAKE 1 TABLET BY MOUTH EVERY MORNING 90 Tablet 1 09/25/19 25 Active fentaNYL 25 MCG/HR Transdermal Patch 72 Hour (Duragesic)Indicati ons:Generalized osteoarthritis Place 1 Patch over 72 hours topically on the skin every 3 days. Apply for pain 10 Patch 09/29/19 25 Active Benzonatate 100 MG Oral Capsule (Tessalemy Perlzaki)Indications: Acute cough Take 1 Capsule by mouth [...] bedtime. 90 Tablet 1 10/22/19 25 Active Doxycycline Hyclate 100 MG Oral CapsuleIndications: Acute cough Take 1 Capsule by mouth in the morning and 1 Capsule before bedtime. Do all this for 10 days. Until gone.. 20 Capsule 09/29/19 025 Discontin ued(Medic ation List Clean Up) documented as of this encounter (statuses as of 11/04/2024) Active Problems Problem Noted Date Diagnosed Date [...] as of this encounter (statuses as of 11/04/2024) Resolved Problems Problem Noted Date Diagnosed Date Resolved Date Alzheimer's disease, unspecified (CODE) 02/09/2024 04/07/2024 Type 2 diabetes mellitus wit h diabetic chronic kidney disease 11/13/2022 02/09/2024 Malignant neoplasm of uterus 11/04/2019 09/29/2024 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 documented as of this encounter (statuses as of 11/04/2024) Immunizations Name Administration Dates Next Due COVID-19 mRNA, LNP-s, No Pre serve, 2-Dose Series (Pfizer) 05/01/2021 COVID-19, MRNA-LNP, PF, 30 M CG/0.3 mL, 12 YRS AND ABOVE, IM (PFIZER-Comirnaty) 07/18/2023 Pneumococcal Conjugate Vacci ne, 20-valent ([id number]) 04/29/2023 Seasonal Influenza Vac., MDV , IM, [...] from, but believes it came from a [employer]. Currently using fentanyl patches which are not [...] 0 Benzonatate 100 MG Oral Capsule (Tessalon Perlzaki) Take 1 Capsule by mouth 3 times [...] performed by Nohemi Montejo DO at ENDOSCOPY [facility] GASTRIC REVISION FOR OBESITY MAMMOGRAM SCREENING BILATERAL [...] Stability Do you currently live in a long-term or have no steady place to sleep [...] Nursing Notes * Mahnaz Fowler LPN - 11/04/2024 10:57 AM EST [facility] done for the power lift recliner [...] Team (Late st Contact Info) Description 11/10/2024 9:40 AM EST Office Visit Family Medicine [address] [place] [phone] Kristie Franks MD [address] [place] [address] [place] [phone] 12/08/2024 10:00 AM EDT Office Visit Cardiology, [facility] [address] [facility] [place] [address] Selena Villanueva CRNP [address] [place] [address] [place] [address] 01/19/2025 11:40 AM EDT Office Visit [address] [phone] Kristie Franks MD [address] [place] [address] [place] [address] 01/25/2025 3:40 PM EDT Office Visit Neurology [facility] [address] [facility] [address] Otilio Bee MD [address] [place] [address] 03/16/2025 1:00 PM EDT Office Visit [address] [phone] Kristie Franks MD [address] [place] [address] [place] [id number] Scheduled Procedures Name Priority Associated Diagnoses Date/Ti me COLONOSCOPY FLEXIBLE PROXIMA L DIAGNOSTIC Recall Special screening for malignant neoplasms, colon Health Maintenance Due Date Last Done Comments Alpha-1 Antitrypsin 02/04/1968 Cologuard 1995 Fecal Occult Blood Test 1995 [...] 02/09/2024, 03/0 04/2023 CKD HGB USE SMARTSET 70006 02/08/202502/08, 01/26/2021, 01/20/2021, Additional history exists GFR 03/29/2025 09/29/2024, 06/0 11/2023, 04/29/2023, Additional history exists HbA1c 03/29/2025 09/29/2024, 06/0 11/2023, 04/29/2023, Additional history exists Depression Monitoring 04/12/2025 04/12/2024 CKD PHOS USE SMARTSET 76522 09/29/2025 09/29/2024, 0 10/05/1997 Diabetic Foot Exam 09/29/2025 09/29/2024, 04/29/2023 O2 ASSESSMENT COMPLETED IN PAST YEAR FOR COPD 11/02/2025 11/02/2024 DXA Scan 04/28/2030 04/28/2023 Colonoscopy 03/24/2033 03/24/2023, 03/08, 04/07/2021, Additional history exists Colorectal Cancer Screening 03/24/2033 Pneumococcal Vaccine: 50+ Years Completed 04/29/2023, 02/18/2022, 03/13/2020, Additional history exists Influenza Vaccine (FLU shot) Completed , 07/18/2023, 06/24/2022, Additional history exists HPV (Gardasil) Vaccine Aged Out No lo [...] dysfunction documented in this encounter Care Teams Tape Machine Tailer Relationship Specialty Start Date End Date Kristie Franks MD [address] [place] [address] [place] [id number] PCP - General Family Medicine 11/18/22 documented as of this encounter
--- OUTSIDE RECORDS SUMMARY | 2024-12-06 20:52 | External Medical Summary | Summary of Care ---
Author Name Unknown Organization [facility] Address [address] [place] [place] [address] Phone [phone] Care Team Providers Care Wooden Frame Builder Name Role Phone Kristie Franks MD Primary Care Prov ider Reason for Visit * Reason Comments Acute Encounter Details Date Type Department Care Team (Late st Contact Info) Description 11/02/2024 3:20 PM EST Office Visit Family Medicine [address] [place] [phone] Lars Vidal [address] [place] [address] Disc disorder of lumbar region*; [...] kidney disease, unspecified CKD stage, unspecified whether parts counterman insulin use (HCC) Test once Daily Dx [...] (PFIZER-Comirnaty) 07/18/2023 Pneumococcal Conjugate Vacci ne, 20-valent ([id number]) 04/29/2023 Seasonal Influenza Vac., MDV , IM, [...] from, but believes it came from a [place]. Currently using fentanyl patches which are not [...] Stability Do you currently live in a retirement or have no steady place to sleep [...] 9:40 AM EST Office Visit Family Medicine [address] [place] [phone] Kristie Franks MD [address] [place] [address] [place] Jaram[place] [address] 12/08/2024 10:00 AM EDT Office Visit Cardiology, [facility] [place] 132 [facility] [place] [address] Selena Villanueva CRNP [address] [place] [address] [place] [address] 01/19/2025 11:40 AM EDT Office Visit [address] [phone] Kristie Franks MD [address] [place] [address] [place] [address] 01/25/2025 3:40 PM EDT Office Visit Neurology [facility] [place] 200 [facility] [address] Otilio Bee MD [address] [place] [address] 03/16/2025 1:00 PM EDT Office Visit [address] [phone] Kristie Franks MD [address] [place] [address] [place] Jaram[place] [address] Scheduled Procedures Name Priority Associated Diagnoses Date/Ti [...] 02/09/2024, 03/0 04/2023 CKD HGB USE SMARTSET 83892 02/08/202502/08, 01/26/2021, 01/20/2021, Additional history exists GFR 03/29/2025 09/29/2024, 06/0 11/2023, 04/29/2023, Additional history exists HbA1c 03/29/2025 09/29/2024, 06/0 11/2023, 04/29/2023, Additional history exists Depression Monitoring 04/12/2025 04/12/2024 CKD PHOS USE SMARTSET 77960 09/29/2025 09/29/2024, 0 10/05/1997 Diabetic Foot Exam [...] dysfunction documented in this encounter Care Teams Wooden Frame Builder Relationship Specialty Start Date End Date Kristie Franks MD [address] [place] [address] [place] Jaram[place] [address] PCP - General Family Medicine 11/18/22 documented as of this encounter
--- OUTSIDE RECORDS SUMMARY | 2024-12-06 20:52 | External Medical Summary | Summary of Care ---
Author Name Unknown Organization [facility] Address [address] [place] [facility] [place] [address] Phone [phone] Care Team Providers Care 3Rd Pressman Name Role Phone Kristie Franks MD Primary Care Prov ider Reason for Visit * Reason Comments Acute Encounter Details Date Type Department Care Team (Late st Contact Info) Description 11/02/2024 3:20 PM EST Office Visit Family Medicine [address] [place] [phone] Lars Vidal [address] [place] [address] Disc disorder of lumbar region*; [...] kidney disease, unspecified CKD stage, unspecified whether buttermaker continuous churn insulin use (HCC) Test once Daily Dx [...] (PFIZER-Comirnaty) 07/18/2023 Pneumococcal Conjugate Vacci ne, 20-valent ([id number]) 04/29/2023 Seasonal Influenza Vac., MDV , IM, [...] from, but believes it came from a [place]. Currently using fentanyl patches which are not [...] Stability Do you currently live in a residential or have no steady place to sleep [...] 9:40 AM EST Office Visit Family Medicine [address] [place] [phone] Kristie Franks MD [address] [place] [address] [place] [address] 12/08/2024 10:00 AM EDT Office Visit Cardiology, [facility] 132 [facility] [place] [address] Selena Villanueva CRNP [address] [place] [address] [place] [address] 01/19/2025 11:40 AM EDT Office Visit [address] [phone] Kristie Franks MD [address] [place] [address] [place] Jaram[place] [address] 01/25/2025 3:40 PM EDT Office Visit Neurology [facility] [place] 200 [facility] [address] Otilio Bee MD [address] [place] [address] 03/16/2025 1:00 PM EDT Office Visit [address] [phone] Kristie Franks MD [address] [place] [address] [place] Jaram[place] [address] Scheduled Procedures Name Priority Associated Diagnoses Date/Ti [...] 02/09/2024, 03/0 04/2023 CKD HGB USE SMARTSET 33775 02/08/202502/08, 01/26/2021, 01/20/2021, Additional history exists GFR 03/29/2025 09/29/2024, 06/0 11/2023, 04/29/2023, Additional history exists HbA1c 03/29/2025 09/29/2024, 06/0 11/2023, 04/29/2023, Additional history exists Depression Monitoring 04/12/2025 04/12/2024 CKD PHOS USE SMARTSET 70094 09/29/2025 09/29/2024, 0 10/05/1997 Diabetic Foot Exam [...] dysfunction documented in this encounter Care Teams 3Rd Pressman Relationship Specialty Start Date End Date Kristie Franks MD [address] [place] [address] [place] Jaram[place] [address] PCP - General Family Medicine 11/18/22 documented as of this encounter
--- OUTSIDE RECORDS SUMMARY | 2024-12-06 20:52 | External Medical Summary | Summary of Care ---
Author Name Unknown Organization [facility] Address [address] [place] [facility] [place] [address] Phone [phone] Care Team Providers Care Bakery Team Leader Name Role Phone Kristie Franks MD Primary Care Prov ider Reason for Visit * Reason Comments Acute Encounter Details Date Type Department Care Team (Late st Contact Info) Description 11/02/2024 3:20 PM EST Office Visit Family Medicine [address] [place] [phone] Lars Vidal [address] [place] [address] Disc disorder of lumbar region*; Chronic pain syndrome; Neuroleptic-induced parkinsonism (HCC); Ambulatory dysfunction Allergies Active Allergy Reactions Criticality Noted Date Comments Latex 04/04/2009 Penicillins Low 03/24/2023 "It makes my bottom sore" documented as of this encounter (statuses as of 11/03/2024) Medications Escitalopram Oxalate 20 MG Oral Tablet (Lexapro) Take 1 Tablet by mouth in the morning. 09/28/19 Active Austedo 12 MG Oral Tablet Take 2 Tablets by mouth in the morning and 2 Tablets before bedtime. 10/29/19 23 Active OneTouch UltraSoft LancetsIndications: Type 2 diabetes mellitus with diabetic chronic kidney disease, unspecified CKD stage, unspecified whether terminal superintendent insulin use (HCC) Test once Daily Dx [...] as of this encounter (statuses as of 11/03/2024) Active Problems Problem Noted Date Diagnosed Date [...] as of this encounter (statuses as of 11/03/2024) Resolved Problems Problem Noted Date Diagnosed Date Resolved Date Alzheimer's disease, unspecified (CODE) 02/09/2024 04/07/2024 Type 2 diabetes mellitus wit h diabetic chronic kidney disease 11/13/2022 02/09/2024 Malignant neoplasm of uterus 11/04/2019 09/29/2024 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 documented as of this encounter (statuses as of 11/03/2024) Immunizations Name Administration Dates Next Due COVID-19 mRNA, LNP-s, No Pre serve, 2-Dose Series (Pfizer) 05/01/2021 COVID-19, MRNA-LNP, PF, 30 M CG/0.3 mL, 12 YRS AND ABOVE, IM (PFIZER-Comirnaty) 07/18/2023 Pneumococcal Conjugate Vacci ne, 20-valent ([id number]) 04/29/2023 Seasonal Influenza Vac., MDV , IM, [...] 8:27 AM EST documented in this encounter Nursing Notes * Mahnaz Fowler LPN - 11/02/2024 2:48 [...] Care Team (Late st Contact Info) Description 11/04/2024 10:00 AM EST Office Visit Audiology [facility] 132 [facility] [place] [address] Kaitlin Mcintyre Au.D. 132 [facility] [place] [address] 11/10/2024 9:40 AM EST Office Visit Family [address] [phone] Kristie Franks MD [address] [place] [address] [place] Jaram[place] [address] 12/08/2024 10:00 AM EDT Office Visit Cardiology, [facility] 132 [facility] [place] [address] Selena Villanueva CRNP 400 [facility] [place] [address] 01/19/2025 11:40 AM EDT Office Visit Family Medicine [address] [phone] Kristie Franks MD [address] [place] [address] [place] Jaram[place] [address] 01/25/2025 3:40 PM EDT Office Visit Neurology [facility] [address] [place] [address] Otilio Bee MD [address] [place] [address] 03/16/2025 1:00 PM EDT Office Visit Family Medicine [address] [phone] Kristie Franks MD [address] [place] [address] [place] Jaram[place] [address] Scheduled Procedures Name Priority Associated Diagnoses Date/Ti [...] 02/09/2024, 03/0 04/2023 CKD HGB USE SMARTSET 47521 02/08/202502/08, 01/26/2021, 01/20/2021, Additional history exists GFR 03/29/2025 09/29/2024, 06/0 11/2023, 04/29/2023, Additional history exists HbA1c 03/29/2025 09/29/2024, 06/0 11/2023, 04/29/2023, Additional history exists Depression Monitoring 04/12/2025 04/12/2024 CKD PHOS USE SMARTSET 70352 09/29/2025 09/29/2024, 0 10/05/1997 Diabetic Foot Exam [...] dysfunction documented in this encounter Care Teams Bakery Team Leader Relationship Specialty Start Date End Date Kristie Franks MD [address] [place] [address] [place] Jaram[place] [phone] PCP - General Family Medicine 11/18/22 documented as of this encounter
--- OUTSIDE RECORDS SUMMARY | 2024-12-06 20:52 | External Medical Summary | Summary of Care ---
Author Name Unknown Organization [facility] Address [address] [facility] [place] [place] [address] Phone [phone] Care Team Providers Care Instructor Traffic Safety Name Role Phone Kristie Franks MD Primary Care Prov ider Reason for Visit * Reason Comments Acute Encounter Details Date Type Department Care Team (Late st Contact Info) Description 11/02/2024 3:20 PM EST Office Visit Family Medicine [address] [place] [phone] Lars Vidal [address] [place] [address] Disc disorder of lumbar region*; [...] kidney disease, unspecified CKD stage, unspecified whether superintendent container terminal insulin use (HCC) Test once Daily Dx [...] (PFIZER-Comirnaty) 07/18/2023 Pneumococcal Conjugate Vacci ne, 20-valent ([email or web address]) 04/29/2023 Seasonal Influenza Vac., MDV , IM, [...] 11/04/2024 10:00 AM EST Office Visit Audiology [facility] 132 [facility] [place] [address] Kaitlin Mcintyre Au.D. 132 [facility] [place] [address] 11/10/2024 9:40 AM EST Office Visit Family [address] [phone] Kristie Franks MD [address] [place] [address] [place] Jaram[place] [address] 12/08/2024 10:00 AM EDT Office Visit Cardiology, [facility] 132 [facility] [place] [address] Sleena Villanueva CRNP 400 [facility] [place] [address] 01/19/2025 11:40 AM EDT Office Visit Family Medicine [address] [phone] Kristie Franks MD [address] [place] [address] [place] Jaram[place] [address] 01/25/2025 3:40 PM EDT Office Visit Neurology [facility] [address] [place] [address] Otilio Bee MD [address] [place] [address] 03/16/2025 1:00 PM EDT Office Visit Family Medicine [address] [phone] Kristie Franks MD [address] [place] [address] [place] Jaram[place] [address] Scheduled Procedures Name Priority Associated Diagnoses Date/Ti [...] 02/09/2024, 03/0 04/2023 CKD HGB USE SMARTSET 31897 02/08/202502/08, 01/26/2021, 01/20/2021, Additional history exists GFR 03/29/2025 09/29/2024, 06/0 11/2023, 04/29/2023, Additional history exists HbA1c 03/29/2025 09/29/2024, 06/0 11/2023, 04/29/2023, Additional history exists Depression Monitoring 04/12/2025 04/12/2024 CKD PHOS USE SMARTSET 99772 09/29/2025 09/29/2024, 0 10/05/1997 Diabetic Foot Exam [...] dysfunction documented in this encounter Care Teams Instructor Traffic Safety Relationship Specialty Start Date End Date Kristie Franks MD [address] [place] [address] [place] Jaram[place] [address] PCP - General Family Medicine 11/18/22 documented as of this encounter
--- OUTSIDE RECORDS SUMMARY | 2024-12-06 20:52 | External Medical Summary | Summary of Care ---
Author Name Unknown Organization [facility] Address [address] [place] [place] [place] [address] Phone [phone] Care Team Providers Care Lithopone Mill Worker Name Role Phone Kristie Franks MD Primary Care Prov ider Reason for Visit * Reason Comments Acute Encounter Details Date Type Department Care Team (Late st Contact Info) Description 11/02/2024 3:20 PM EST Office Visit Family Medicine [address] [place] [phone] Lars Vidal [address] [place] [address] Disc disorder of lumbar region*; [...] kidney disease, unspecified CKD stage, unspecified whether sales activity manager insulin use (HCC) Test once Daily [...] (PFIZER-Comirnaty) 07/18/2023 Pneumococcal Conjugate Vacci ne, 20-valent ([email or web address]) 04/29/2023 Seasonal Influenza Vac., MDV , IM, [...] from, but believes it came from a [place]. Currently using fentanyl patches which are not [...] Stability Do you currently live in a senior living or have no steady place to sleep [...] Notes * Mahnaz Fowler LPN - 11/04/2024 4:12 PM EST Order [id number] for Chante Harvey (1950) [facility]. If you needassistance with this order, [...] 9:40 AM EST Office Visit Family Medicine [address] [phone] Kristie Franks MD [address] [place] [address] [place] Jaram[place] [address] 12/08/2024 10:00 AM EDT Office Visit Cardiology, [facility] [address] [place] [place] [address] Selena Villanueva CRNP 400 [place] [address] 01/19/2025 11:40 AM EDT Office Visit Family Medicine [address] [phone] Kristie rFanks MD [address] [place] [address] [place] Jaramillo [address] 01/25/2025 3:40 PM EDT Office Visit Neurology [facility] 200 [place] [address] Otilio Bee MD 100 [place] [address] 03/16/2025 1:00 PM EDT Office Visit Family Medicine [address] [phone] Kristie Franks MD [address] [place] [address] [place] Jaram[place] [address] Scheduled Procedures Name Priority Associated Diagnoses Date/Ti [...] 02/09/2024, 03/0 04/2023 CKD HGB USE SMARTSET 20040 02/08/202502/08, 01/26/2021, 01/20/2021, Additional history exists GFR 03/29/2025 09/29/2024, 06/0 11/2023, 04/29/2023, Additional history exists HbA1c 03/29/2025 09/29/2024, 06/0 11/2023, 04/29/2023, Additional history exists Depression Monitoring 04/12/2025 04/12/2024 CKD PHOS USE SMARTSET 39855 09/29/2025 09/29/2024, 0 10/05/1997 Diabetic Foot Exam [...] dysfunction documented in this encounter Care Teams Lithopone Mill Worker Relationship Specialty Start Date End Date Kristie Franks MD [address] [place] [address] [place] Jaramillo [address] PCP - General Family Medicine 11/18/22 documented as of this encounter
--- OUTSIDE RECORDS SUMMARY | 2024-12-06 20:52 | External Medical Summary | Summary of Care ---
Author Name Unknown Organization [facility] Address [address] [place] [address] Phone [phone] Care Team Providers Care Mold Forms Builder Name Role Phone Kristie Franks MD Primary Care Prov ider Reason for Visit * Reason Onset Date Comments Order Request 11/01/2024 Encounter Details Date Type Department Care Team (Late st Contact Info) Description 11/01/2024 Telephone Family Medicine [address] [phone] Kristie Franks MD [address] [place] [address] [place] [address] Order Request Allergies Active Allergy Reactions Criticality Noted Date Comments Latex 04/04/2009 Penicillins Low 03/24/2023 "It makes my bottom sore" documented as of this encounter (statuses as of 11/02/2024) Medications Escitalopram Oxalate 20 MG Oral Tablet (Lexapro) Take 1 Tablet by mouth in the morning. 09/28/19 Active Austedo 12 MG Oral Tablet Take 2 Tablets by mouth in the morning and 2 Tablets before bedtime. 10/29/19 Active OneTouch UltraSoft LancetsIndications: Type 2 diabetes mellitus with diabetic chronic kidney disease, unspecified CKD stage, unspecified whether local company intermodal truck driver insulin use (HCC) Test once Daily Dx [...] bedtime. 30 Tablet 5 07/05/20 24 Active oxyCODONE-Acetamino phen 10-325 MG Oral TabletIndications:D [...] MOUTH EVERY MORNING 90 Tablet 1 09/25/19 Active fentaNYL 25 MCG/HR Transdermal Patch 72 Hour (Duragesic)Indicati ons:Generalized osteoarthritis Place 1 Patch over 72 hours topically on the skin every 3 days. Apply for pain 10 Patch 09/29/19 Active Benzonatate 100 MG Oral Capsule (Tessalon Perlzaki)Indications: Acute cough Take 1 Capsule by [...] at bedtime. 90 Tablet 1 10/22/19 Active Doxycycline Hyclate 100 MG Oral CapsuleIndications: Acute cough Take 1 Capsule by mouth in the morning and 1 Capsule before bedtime. Do all this for 10 days. Until gone.. 20 Capsule 09/29/19 025 Discontin ued(Medic ation List Clean Up) documented as of this encounter (statuses as of 11/02/2024) Active Problems Problem Noted Date Diagnosed Date [...] as of this encounter (statuses as of 11/02/2024) Resolved Problems Problem Noted Date Diagnosed Date Resolved Date Alzheimer's disease, unspecified (CODE) 02/09/2024 04/07/2024 Type 2 diabetes mellitus wit h diabetic chronic kidney disease 11/13/2022 02/09/2024 Malignant neoplasm of uterus 11/04/2019 09/29/2024 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 documented as of this encounter (statuses as of 11/02/2024) Immunizations Name Administration Dates Next Due COVID-19 mRNA, LNP-s, No Pre serve, 2-Dose Series (Pfizer) 05/01/2021 COVID-19, MRNA-LNP, PF, 30 M CG/0.3 mL, 12 YRS AND ABOVE, IM (PFIZER-Comirnaty) 07/18/2023 Pneumococcal Conjugate Vacci ne, 20-valent ([id number]) 04/29/2023 Seasonal Influenza Vac., MDV , IM, [...] Telephone Encounter - Elizabeth Yap RN - 11/01/2024 4:19 PM EST [facility] req order for XL adult disposable pull up fax to [phone]. [facility] Faxed documented in this encounter Plan of Treatment Upcoming Encounters Date Type Department Care Team (Late st Contact Info) Description 11/04/2024 10:00 AM EST Office Visit Audiology [address] [place] [address] Kaitlin Mcintyre Au.D. [address] [facility] [place] [address] 11/10/2024 9:40 AM EST Office Visit Family [address] [phone] Kristie Franks MD [address] [place] [address] [place] Jaram[place] [address] 12/08/2024 10:00 AM EDT Office Visit Cardiology, [facility] [address] [place] [address] Selena Villanueva CRNP 400 [place] [address] 01/19/2025 11:40 AM EDT Office Visit Family [address] [phone] Kristie Franks MD [address] [place] [address] [place] Jaram[place] [address] 01/25/2025 3:40 PM EDT Office Visit Neurology [facility] 200 [facility] [address] Otilio Bee MD [address] [place] [address] 03/16/2025 1:00 PM EDT Office Visit Family [address] [phone] Kristie Franks MD [address] [place] [address] [place] Jaramillo [address] Scheduled Procedures Name Priority Associated Diagnoses Date/Ti [...] 02/09/2024, 03/0 04/2023 CKD HGB USE SMARTSET 52042 02/08/202502/08, 01/26/2021, 01/20/2021, Additional history exists GFR 03/29/2025 09/29/2024, 06/0 11/2023, 04/29/2023, Additional history exists HbA1c 03/29/2025 09/29/2024, 06/0 11/2023, 04/29/2023, Additional history exists Depression Monitoring 04/12/2025 04/12/2024 CKD PHOS USE SMARTSET 29510 09/29/2025 09/29/2024, 0 10/05/1997 Diabetic Foot Exam [...] as of this encounter Visit Diagnoses Diagnosis Mixed incontinence- Primary Mixed incontinence urge and stress (male)(female) Parkinson's disease (HCC) Paralysis agitans History of CVA (cerebrovascular accident) Transient ischemic attack (TIA), and cerebral infarction without residual deficits Tremors of nervous system Abnormal involuntary movements documented in this encounter Care Teams Mold Forms Builder Relationship Specialty Start Date End Date Kristie Franks MD [address] [place] [address] [place] Jaram[place] [address] PCP - General Family Medicine 11/18/22 documented as of this encounter
--- OUTSIDE RECORDS SUMMARY | 2024-12-06 20:52 | External Medical Summary | Summary of Care ---
Author Name Unknown Organization [facility] Address [address] [place] [address] Phone [phone] Care Team Providers Care Address Change Clerk Name Role Phone Kristie Franks MD Primary Care Prov ider Reason for Visit * Reason Comments Re-Check Encounter Details Date Type Department Care Team (Latest Contact Info) Description 11/10/2024 9:40 AM EST Office Visit Family Medicine [address] [phone] Kristie Franks MD [address] [place] [address] [place] [address] Disc disorder of lumbar region*; Major depressive disorder, single episode, moderate (HCC); Intermittent asthma with reliever use up to twice per week without complication; GENERAL OSTEOARTHROSIS Allergies Active Allergy Reactions Criticality Noted Date [...] ONE TABLET BY MOUTH DAILY 45 Tablet 023 Active Additional Information Patient not taking.Reported on [...] mouth in the morning. 90 Tablet 3 Active Carvedilol 12.5 MG Oral Tablet (Coreg)Indications [...] Active Benzonatate 100 MG Oral Capsule (Tessalemy Perlzaki)Indications :Acute cough Take 1 Capsule by mouth [...] for pain 10 Patch 025 2024 Discontinued fentaNYL 50 MCG/HR Transdermal Patch 72 Hour (Duragesic)Indicat ions:Generalized osteoarthritis,Dis c disorder of lumbar region Place 1 Patch over 72 hours topically on the skin every 3 days. Apply for pain 10 Patch 025 2024 Discontinued(R efill) documented as of this encounter (statuses as [...] (PFIZER-Comirnaty) 07/18/2023 Pneumococcal Conjugate Vacci ne, 20-valent ([id number]) 04/29/2023 Seasonal Influenza Vac., MDV , IM, [...] Sign Reading Time Taken Comments Blood Pressure 142/88 11/10/2024 9:58 AM EST Pulse 76 11/10/2024 9:58 AM EST Temperature 36 °C (96.8 °F) 11/10/2024 9:58 AM EST Respiratory Rate 18 11/10/2024 9:58 AM EST Oxygen Saturation - - Inhaled Oxygen Concentration - - Weight 84.4 kg (186 lb) 11/10/2024 9:58 AM EST Height 165.1 cm (5' 5") 11/10/2024 9:58 AM EST Body Mass Index 30.95 11/10/2024 9:58 AM EST documented in this encounter Progress Notes * Kristie Franks MD - 11/10/2024 10:11 AM EST Images from the original note were not included. Subjective Chante Harvey is a 74 year old female that presents for Re-Check History of Present Illness The patient, with a history of chronic pain, presents for a follow-up visit. She reports a recent conflict with her sister, who was her caregiver and had accused her of giving away her pain medication. The patient denies this and states that she has moved out of her sister's home. She now lives with her niece, who manages her medications and keeps them in a locked safe. The patient has been using pain patches and oxycodone for pain management. She reports that she last used the patches about one to two weeks ago, but she did not find them helpful. She last took an oxycodone pill about a month ago. The patient also reports intermittent tremors, which have been better recently, but were severe the previous day. She has no issues with her breathing. The patient also mentions that she has been sleeping on a couch due to a broken lift chair, which has been causing additional back pain. She is expecting a replacement chair soon. Objective Vitals: 11/10/24 0958 Temp: 96.8 °F (36 °C) Pulse: 76 Resp: 18 BP: 142/88 BMI: 30.95 Physical Exam General: alert, well nourished, well developed, and mild distress Heart: regular rate & rhythm, no murmur, and no gallops Lungs: chest symmetric with normal AP diameter, no chest deformities noted, no chest wall tenderness, lungs clear to auscultation Back: back symmetric, no curvature, no costovertebral angle tenderness, Some limitation of flexion,Tender paralumbar muscles bilaterally I have reviewed the following results: Results Assessment and Plan Assessment & Plan Chronic Pain Suboptimal pain control with current regimen. Last used pain patch 1-2 weeks ago and oxycodone 1 month ago. Discussed the benefits of consistent use of pain patch for continuous pain control and safety concerns regarding misuse of narcotic medications. -Increase dose of pain patch to 50 micrograms. -Check in 1 month to assess efficacy and need for further adjustments. Tremors Intermittent tremors, no tremors observed during today's visit. -Continue current management and monitor. General Health Maintenance -Ensure safe storage and administration of medications by caregiver, Bruna Dodd. -Next appointment in 1 month to assess response to increased dose of pain patch. There are no diagnoses linked to this encounter. Wrap-Up Time: I spent a total of 10-19 minutes (exact time 18 mins) on the date of service in preparation, delivery, and documentation of the care provided to Chante Harvey excluding any time spent in the performance of separately billed services. Text in this note was generated using an [employer] documentation service. I discussed the use of a device to record and summarize our discussion today. All persons present during the encounter consented to its use. documented in this encounter Nursing Notes * Elizabeth Yap RN - 11/10/2024 9:57 AM EST Pt unable to state what meds she takes, but she did state she is out of her Fentanyl patch and oxycodone. Pt states she does not sleep due to the pain documented in this encounter Plan of Treatment Upcoming Encounters Date Type Department Care Team (Late st Contact Info) Description 12/08/2024 10:00 AM EDT Office Visit Cardiology, [facility] 132 [facility] [place] [address] Selena Villanueva CRNP [address] [place] [address] [place] [address] 12/09/2024 1:00 PM EDT Office Visit [address] [place] [phone] Lars Vidal CRNP [address] [place] [address] [place] Jaram[place] [address] 01/19/2025 11:40 AM EDT Office Visit Family Medicine [address] [phone] Kristie Franks MD [address] [place] [address] [place] [address] 01/25/2025 3:40 PM EDT Office Visit [facility] [address] [facility] [address] Otilio Bee MD [address] [place] [address] 03/16/2025 1:00 PM EDT Office Visit Family [address] [phone] Kristie Franks MD [address] [place] [address] [place] Jaram[place] [address] Scheduled Procedures Name Priority Associated Diagnoses Date/Ti [...] Additional history exists Albumin/Creatinine Ratio 02/08/2025 02/09/2024, 04/2023 CKD HGB USE SMARTSET 28032 02/08/202502/08, 01/26/2021, 01/20/2021, Additional history exists GFR 03/29/2025 09/29/2024, 06/0 11/2023, 04/29/2023, Additional history exists HbA1c 03/29/2025 09/29/2024, 06/0 11/2023, 04/29/2023, Additional history exists Depression Monitoring 04/12/2025 04/12/2024 CKD PHOS USE SMARTSET 51810 09/29/2025 09/29/2024, 0 10/05/1997 Diabetic Foot Exam [...] and unspecified disc disorder of lumbar region Major depressive disorder, single episode, moderate (HCC) Major depressive disorder, single episode, moderate Intermittent asthma with reliever use up to twice per week without complication GENERAL OSTEOARTHROSIS Generalized osteoarthrosis, unspecified site documented in this encounter Care Teams Address Change Clerk Relationship Specialty Start Date End Date Kristie Franks MD [address] [place] [address] [place] Jaram[place] [address] PCP - General Family Medicine 11/18/22 documented as of this encounter
--- OUTSIDE RECORDS SUMMARY | 2024-12-06 20:52 | External Medical Summary | Summary of Care ---
Author Name Unknown Organization [facility] Address [address] [facility] [place] [address] Phone [phone] Care Team Providers Care Picker Machine Operator Name Role Phone Kristie Franks MD Primary Care Prov ider Reason for Visit * Reason Comments Acute Encounter Details Date Type Department Care Team (Late st Contact Info) Description 11/02/2024 3:20 PM EST Office Visit Family Medicine [address] [place] [phone] Lars Vidal [address] [place] [address] Disc disorder of lumbar region*; [...] (PFIZER-Comirnaty) 07/18/2023 Pneumococcal Conjugate Vacci ne, 20-valent ([id number]) 04/29/2023 Seasonal Influenza Vac., MDV , IM, [...] 11/04/2024 10:00 AM EST Office Visit Audiology [facility] 132 [facility] [place] [address] Kaitlin Mcintyre Au.D. 132 [facility] [place] [address] 11/10/2024 9:40 AM EST Office Visit Family [address] [phone] Kristie Franks MD [address] [place] [address] [place] Jaram[place] [address] 12/08/2024 10:00 AM EDT Office Visit Cardiology, [facility] 132 [facility] [place] [address] Selena Villanueva CRNP 400 [facility] [place] [address] 01/19/2025 11:40 AM EDT Office Visit Family Medicine [address] [phone] Kristie Franks MD [address] [place] [address] [place] Jaram[place] [address] 01/25/2025 3:40 PM EDT Office Visit Neurology [facility] [address] [place] [address] Otilio Bee MD [address] [place] [address] 03/16/2025 1:00 PM EDT Office Visit Family Medicine [address] [phone] Kristie Franks MD [address] [place] [address] [place] Jaram[place] [address] Scheduled Procedures Name Priority Associated Diagnoses Date/Ti [...] 02/09/2024, 03/0 04/2023 CKD HGB USE SMARTSET 89612 02/08/202502/08, 01/26/2021, 01/20/2021, Additional history exists GFR 03/29/2025 09/29/2024, 06/0 11/2023, 04/29/2023, Additional history exists HbA1c 03/29/2025 09/29/2024, 06/0 11/2023, 04/29/2023, Additional history exists Depression Monitoring 04/12/2025 04/12/2024 CKD PHOS USE SMARTSET 19992 09/29/2025 09/29/2024, 0 10/05/1997 Diabetic Foot Exam [...] dysfunction documented in this encounter Care Teams Picker Machine Operator Relationship Specialty Start Date End Date Kristie Franks MD [address] [place] [address] [place] Jaram[place] [address] PCP - General Family Medicine 11/18/22 documented as of this encounter
--- OUTSIDE RECORDS SUMMARY | 2024-12-06 20:52 | External Medical Summary | Summary of Care ---
Author Name Unknown Organization [facility] Address [address] [place] [place] [address] Phone [phone] Care Team Providers Care Hvac Journeyman Name Role Phone Kristie Franks MD Primary Care Prov ider Reason for Visit * Reason Comments Acute Encounter Details Date Type Department Care Team (Late st Contact Info) Description 11/02/2024 3:20 PM EST Office Visit Family Medicine [address] [place] [phone] Lars Vidal [address] [place] [address] Disc disorder of lumbar region*; [...] kidney disease, unspecified CKD stage, unspecified whether termite exterminator insulin use (HCC) Test once Daily [...] (PFIZER-Comirnaty) 07/18/2023 Pneumococcal Conjugate Vacci ne, 20-valent ([id number]) 04/29/2023 Seasonal Influenza Vac., MDV , IM, [...] 11/04/2024 10:00 AM EST Office Visit Audiology [facility] 132 [facility] [place] [address] Kaitlin Mcintyre Au.D. 132 [facility] [place] [address] 11/10/2024 9:40 AM EST Office Visit Family [address] [phone] Kristie Franks MD [address] [place] [address] [place] Jaram[place] [address] 12/08/2024 10:00 AM EDT Office Visit Cardiology, [facility] 132 [facility] [place] [address] Selena Villanueva CRNP 400 [facility] [place] [address] 01/19/2025 11:40 AM EDT Office Visit Family Medicine [address] [phone] Kristie Franks MD [address] [place] [address] [place] Jaram[place] [address] 01/25/2025 3:40 PM EDT Office Visit Neurology [facility] [address] [place] [address] Otilio Bee MD [address] [place] [address] 03/16/2025 1:00 PM EDT Office Visit Family Medicine [address] [phone] Kristie Franks MD [address] [place] [address] B[place] Jaramillo [address] Scheduled Procedures Name Priority Associated Diagnoses Date/Ti [...] 02/09/2024, 03/0 04/2023 CKD HGB USE SMARTSET 16019 02/08/202502/08, 01/26/2021, 01/20/2021, Additional history exists GFR 03/29/2025 09/29/2024, 06/0 11/2023, 04/29/2023, Additional history exists HbA1c 03/29/2025 09/29/2024, 06/0 11/2023, 04/29/2023, Additional history exists Depression Monitoring 04/12/2025 04/12/2024 CKD PHOS USE SMARTSET 72658 09/29/2025 09/29/2024, 0 10/05/1997 Diabetic Foot Exam [...] dysfunction documented in this encounter Care Teams Hvac Journeyman Relationship Specialty Start Date End Date Kristie Franks MD [address] [place] [address] [place] Jaram[place] [address] PCP - General Family Medicine 11/18/22 documented as of this encounter
--- OUTSIDE RECORDS SUMMARY | 2024-12-06 20:52 | External Medical Summary | Summary of Care ---
Author Name Unknown Organization [facility] Address [address] [place] [address] Phone [phone] Care Team Providers Care Experimental Mechanic Electrical Name Role Phone Kristie Franks MD Primary Care Prov ider Reason for Visit * Reason Onset Date Comments Order Request 11/03/2024 Encounter Details Date Type Department Care Team (Late st Contact Info) Description 11/03/2024 Telephone Family Medicine [address] [phone] Kristie Franks MD [address] [place] [address] [place] [address] Order Request Allergies Active Allergy [...] kidney disease, unspecified CKD stage, unspecified whether truck terminal manager insulin use (HCC) Test once Daily [...] bedtime. 90 Tablet 1 10/22/19 25 Active documented as of this encounter [...] mRNA, LNP-s, No Pre serve, 2-Dose Series ([email or web address][employer]) 05/01/2021 COVID-19, MRNA-LNP, PF, 30 M CG/0.3 mL, 12 YRS AND ABOVE, IM ([employer]-Comirnat) 07/18/2023 Pneumococcal Conjugate Vacci ne, 20-valent ([id number]) 04/29/2023 Seasonal Influenza Vac., MDV , IM, [...] encounter Miscellaneous Notes * Telephone Encounter - Carol Tinoco CMA - 11/09/2024 4:12 PM EST Order submitted to [facility]. Called and advised pt order submitted advised could take up too5 days business days * Telephone Encounter - Susie Valdes CPhT - 11/09/2024 12:43 PM EST Patient checking status of her lift chair. She says the chair script cannot be sent to [facility] because they do not accept the Waiver Program benefits. Thank you, Susie Valdes CPhT Production Line [employer] [facility] 11/09/2024, 12:43 PM * Telephone Encounter - Yasmeen Butler CMA - 11/04/2024 1:37 PM EST [facility] and can be requested to go to [facility]. * Telephone Encounter - Pebbles Ramos OSA - 11/04/2024 10:18 AM EST Patient calling in to check on the status of previous message. Patient Called within 48 hour timeframe. Reminded patient of 48 hour turn-around time. * Telephone Encounter - Marj Lucas LPN - 11/04/2024 9:46 AM EST [facility] Nurse In-basket does not manage request for [...] Asking for the order to go to [facility] * Telephone Encounter - Veronica Jensen [...] wish to have their order completed at? [facility] Fax Number, if applicable: N/A [...] 9:40 AM EST Office Visit Family Medicine [address] [phone] Kristie Franks MD [address] [place] [address] [place] Jaram[place] [address] 12/08/2024 10:00 AM EDT Office Visit Cardiology, [facility] 132 [place] [address] Selena Villanueva CRNP 400 [place] [address] 01/19/2025 11:40 AM EDT Office Visit Family Medicine [address] [phone] Kristie Franks MD [address] [place] [address] [place] Jaram[place] [address] 01/25/2025 3:40 PM EDT Office Visit Neurology [facility] 200 [facility] [address] Otilio Bee MD [address] [place] [address] 03/16/2025 1:00 PM EDT Office Visit Family Medicine [address] [place] [phone] Kristie Franks MD [address] [place] [address] [place] Jaram[place] [address] Scheduled Procedures Name Priority Associated Diagnoses Date/Ti [...] ONCE FOR ASTHMA-ADULT 09/19/2024 Mammogram 11/13/2024 11/14/2023, 030 04/2024, 11/12/2022, Additional history exists Albumin/Creatinine Ratio 02/08/2025 02/09/2024, 03/0 04/2023 CKD HGB USE SMARTSET 18387 02/08/202502/08, 01/26/2021, 01/20/2021, Additional history exists GFR 03/29/2025 09/29/2024, 06/0 11/2023, 04/29/2023, Additional history exists HbA1c 03/29/2025 09/29/2024, 06/0 11/2023, 04/29/2023, Additional history exists Depression Monitoring 04/12/2025 04/12/2024 CKD PHOS USE SMARTSET 29055 09/29/2025 09/29/2024, 0 10/05/1997 Diabetic Foot Exam [...] filedocumented as of this encounter Care Teams Experimental Mechanic Electrical Relationship Specialty Start Date End Date Kristie Franks MD [address] [place] [address] [place] Jaramillo [phone] PCP - General Family Medicine 11/18/22 documented as of this encounter
--- OUTSIDE RECORDS SUMMARY | 2024-12-06 20:53 | External Medical Summary | Summary of Care ---
Author Name Unknown Organization [facility] Address [address] [place] [address] Phone [phone] Care Team Providers Care Senior Net Web Developer Name Role Phone Kristie Franks MD Primary Care Prov ider Reason for Visit * Reason Onset Date Comments Health Maintenance 10/28/2024 Encounter Details Date Type Department Care Team (Late st Contact Info) Description 10/28/2024 Telephone Family Medicine [address] [phone] Kristie Franks MD [address] [place] [address] [place] [address] Health Maintenance Allergies Active Allergy Reactions Criticality Noted Date Comments Latex 04/04/2009 Penicillins Low 03/24/2023 "It makes my bottom sore" documented as of this encounter (statuses as of 10/28/2024) Medications Escitalopram Oxalate 20 MG Oral Tablet (Lexapro) Take 1 Tablet by mouth in the morning. 09/28/19 Active Austedo 12 MG Oral Tablet Take 2 Tablets by mouth in the morning and 2 Tablets before bedtime. 10/29/19 23 Active OneTouch UltraSoft LancetsIndications: Type 2 diabetes mellitus with diabetic chronic kidney disease, unspecified CKD stage, unspecified whether assisted insulin use (HCC) Test once Daily Dx [...] at bedtime. 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 documented as of this encounter (statuses as of 10/28/2024) Immunizations Name Administration Dates Next Due COVID-19 mRNA, LNP-s, No Pre serve, 2-Dose Series ([employer]) 05/01/2021 COVID-19, MRNA-LNP, PF, 30 M CG/0.3 mL, 12 YRS AND ABOVE, IM ([employer]-Comirnat) 07/18/2023 Pneumococcal Conjugate Vacci ne, 20-valent ([email or web address]) 04/29/2023 Seasonal Influenza Vac., MDV , IM, [...] encounter Miscellaneous Notes * Telephone Encounter - Claudia MarquezRADHA - 10/28/2024 9:53 AM EST Care Gaps Comprehensive Care Outreach Last Office/Telemedicine Visit: 09/29/2024 (in office), Visit date not found (telemedicine) Next Office Visit: 01/19/2025 Hemoglobin AIC Results: Lab Results Component Value Date/Time HEMOGLOBIN A1C - [facility] 5.4 09/29/2024 09:23 AM HEMOGLOBIN A1C - [facility] 5.5 02/09/2024 09:37 AM HEMOGLOBIN A1C - [facility] 5.3 04/29/2023 11:47 AM HEMOGLOBIN A1C - [facility] 5.2 12/02/2008 08:16 AM BP Readings from Last 1 Encounters: 09/29/24 132/70 Reviewed Health Maintenance below: Health Maintenance Topic Date Due Alpha-1 Antitrypsin Never done Zoster Vaccines (1 of 2) Never done Adult Wellness Visit Never done DTap/Tdap Vaccines (2 - Td or Tdap) 02/28/2018 COVID-19 Vaccine (3 - season) 2024 Diabetic Eye Exam 07/18/2024 *COPD SEVERITY VERIFIED BY PFT Never done *SPIROMETRY ONCE FOR ASTHMA-ADULT Never done Mammogram 11/13/2024 Mamm march Eye Awv pft Care Gap Outreach Action Taken: Unable to reach documented in this encounter Plan of Treatment Upcoming Encounters Date Type Department Care Team (Late st Contact Info) Description 11/02/2024 3:20 PM EST Office Visit Family Medicine [address] [phone] Lars Vidal CRNP [address] [place] [address] [place]am[place] [address] 11/04/2024 10:00 AM EST Office Visit Audiology [facility] 132 [place] [address] Kaitlin Mcintyre AuNena 132 [place] [address] 12/08/2024 10:00 AM EDT Office Visit Cardiology, [facility] 132 [place] [address] Selena Villanueva CRNP 400 [place] [place] [address] 01/19/2025 11:40 AM EDT Office Visit Family Medicine [address] [phone] Kristie Franks MD [address] [place] [address] [place] Jaram[place] [address] 01/25/2025 3:40 PM EDT Office Visit [facility] 200 [facility] [address] Otilio Bee MD 100 [place] [address] 03/16/2025 1:00 PM EDT Office Visit Family Medicine [address] [place] [phone] Kristie Franks MD [address] [place] [address] [place]am[place] [address] Scheduled Procedures Name Priority Associated Diagnoses Date/Ti [...] 02/09/2024, 03/0 04/2023 CKD HGB USE SMARTSET 95978 02/08/202502/08, 01/26/2021, 01/20/2021, Additional history exists GFR 03/29/2025 09/29/2024, 06/0 11/2023, 04/29/2023, Additional history exists HbA1c 03/29/2025 09/29/2024, 06/0 11/2023, 04/29/2023, Additional history exists Depression Monitoring 04/12/2025 04/12/2024 O2 ASSESSMENT COMPLETED IN PAST YEAR FOR COPD 07/28/2025 07/28/2024 CKD PHOS USE SMARTSET 04478 09/29/2025 09/29/2024, 0 10/05/1997 Diabetic Foot Exam 09/29/2025 09/29/2024, 04/29/2023 DXA Scan 04/28/2030 04/28/2023 Colonoscopy 03/24/2033 03/24/2023, [...] filedocumented as of this encounter Care Teams Senior Net Web Developer Relationship Specialty Start Date End Date Kristie Franks MD [address] [place] [address] [place] Jaram[place] [address] PCP - General Family Medicine 11/18/22 documented as of this encounter
--- OUTSIDE RECORDS SUMMARY | 2024-12-06 20:53 | External Medical Summary | Summary of Care ---
Author Name Unknown Organization [facility] Address [address] [place] [address] Phone [phone] Care Team Providers Care Technical Director Name Role Phone Kristie Franks MD Primary Care Prov ider Reason for Visit * Reason Onset Date Comments Order Request 11/01/2024 Encounter Details Date Type Department Care Team (Late st Contact Info) Description 11/01/2024 Telephone Family Medicine [address] [phone] Kristie Franks MD [address] [place] [address] [place] [address] Order Request Allergies Active Allergy Reactions [...] disease, unspecified CKD stage, unspecified whether terminal makeup operator insulin use (HCC) Test once Daily Dx [...] mRNA, LNP-s, No Pre serve, 2-Dose Series ([employer]) 05/01/2021 COVID-19, MRNA-LNP, PF, 30 M CG/0.3 mL, 12 YRS AND ABOVE, IM (CaratLane-Comirnat) 07/18/2023 Pneumococcal Conjugate Vacci ne, 20-valent ([email or web address]) 04/29/2023 Seasonal Influenza Vac., MDV , IM, [...] Yap RN - 11/01/2024 4:19 PM EST [facility] re order for XL adult disposable pull up fax to [phone]. I sent [facility] last week for supplies documented in this encounter Plan of Treatment Upcoming Encounters Date Type Department Care Team (Late st Contact Info) Description 11/02/2024 3:20 PM EST Office Visit Family Medicine [address] [place] [phone] Lars Vidal CRNP [address] [place] [address] [place] [address] 11/04/2024 10:00 AM EST Office Visit Audiology [facility] [address] [facility] [place] [phone] Kaitlin Mcintyre Au.D. [address] [place] [address] 11/10/2024 9:40 AM EST Office Visit Family [address] [phone] Kristie Franks MD [address] [place] [address] [place] [address] 12/08/2024 10:00 AM EDT Office Visit Cardiology, [facility] [address] [place] [address] Selena Villanueva CRNP [address] [place] [address] 01/19/2025 11:40 AM EDT Office Visit [address] [phone] Kristie Franks MD [address] [place] [address] [place] [address] 01/25/2025 3:40 PM EDT Office Visit Neurology [facility] 200 [place] [address] Otilio Bee MD [address] [place] [address] 03/16/2025 1:00 PM EDT Office Visit Family [address] [phone] Kristie Franks MD [address] [place] [address] [place] [address] Scheduled Procedures Name Priority Associated Diagnoses Date/Ti [...] 02/09/2024, 03/0 04/2023 CKD HGB USE SMARTSET 15542 02/08/202502/08, 01/26/2021, 01/20/2021, Additional history exists GFR 03/29/2025 09/29/2024, 06/0 11/2023, 04/29/2023, Additional history exists HbA1c 03/29/2025 09/29/2024, 06/0 11/2023, 04/29/2023, Additional history exists Depression Monitoring 04/12/2025 04/12/2024 O2 ASSESSMENT COMPLETED IN PAST YEAR FOR COPD 07/28/2025 07/28/2024 CKD PHOS USE SMARTSET 19859 09/29/2025 09/29/2024, 0 10/05/1997 Diabetic Foot Exam [...] movements documented in this encounter Care Teams Technical Director Relationship Specialty Start Date End Date Kristie Franks MD [address] [place] [address] [place] [phone] PCP - General Family Medicine 11/18/22 documented as of this encounter
--- OUTSIDE RECORDS SUMMARY | 2024-12-06 20:53 | External Medical Summary | Summary of Care ---
Author Name Unknown Organization [facility] Address [address] [place] [address] Phone [phone] Care Team Providers Care User Experience Architect Name Role Phone Kristie Franks MD Primary Care Prov ider Reason for Visit * Reason Onset Date Comments Order Request 10/21/2024 [facility] Encounter Details Date Type Department Care Team (Late st Contact Info) Description 10/21/2024 Telephone Family Medicine [address] [phone] Kristie Franks MD [address] [place] [address] Order Request ([facility]) Allergies Active Allergy Reactions Criticality Noted Date Comments Latex 04/04/2009 Penicillins Low 03/24/2023 "It makes my bottom sore" documented as of this encounter (statuses as of 10/26/2024) Medications Escitalopram Oxalate 20 MG Oral Tablet (Lexapro) Take 1 Tablet by mouth in the morning. 09/28/19 Active Austedo 12 MG Oral Tablet Take 2 Tablets by mouth in the morning and 2 Tablets before bedtime. 10/29/19 Active OneTouch UltraSoft LancetsIndications :Type 2 diabetes mellitus with diabetic chronic kidney disease, unspecified CKD stage, unspecified whether glove examiner insulin use (HCC) Test once Daily Dx [...] bedtime. 30 Tablet 5 07/05/20 24 Active oxyCODONE-Acetamin ophen 10-325 MG Oral TabletIndications: Disc disorder of lumbar region,Chronic pain syndrome,Chronic right-sided low back pain with right-sided sciatica Take 1 Tablet by mouth in the morning and 1 Tablet in the evening. 10 Tablet 01/18/20 25 Active Rosuvastatin Calcium 20 MG Oral Tablet (Crestor)Indicatio ns:Hyperlipidemia with target LDL less than 70 TAKE 1 TABLET BY MOUTH EVERY MORNING 90 Tablet 1 09/25/19 Active fentaNYL 25 MCG/HR Transdermal Patch 72 Hour (Duragesic)Indicat ions:Generalized osteoarthritis Place 1 Patch over 72 hours topically on the skin every 3 days. Apply for pain 10 Patch 09/29/19 Active Benzonatate 100 MG Oral Capsule (Tessalemy Perlzaki)Indications :Acute cough Take 1 Capsule by mouth 3 times a day as needed for Cough. Do not cut, crush, or chew. 50 Capsule 1 09/29/19 Active traZODone HCl 100 MG Oral Tablet (Desyrel) Take 2 Tablets by mouth at bedtime. 60 Tablet 3 10/08/19 Active documented as of this encounter (statuses as of 10/26/2024) Active Problems Problem Noted Date Diagnosed Date [...] as of this encounter (statuses as of 10/26/2024) Resolved Problems Problem Noted Date Diagnosed Date Resolved Date Alzheimer's disease, unspecified (CODE) 02/09/2024 04/07/2024 Type 2 diabetes mellitus wit h diabetic chronic kidney disease 11/13/2022 02/09/2024 Malignant neoplasm of uterus 11/04/2019 09/29/2024 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 documented as of this encounter (statuses as of 10/26/2024) Immunizations Name Administration Dates Next Due COVID-19 mRNA, LNP-s, No Pre serve, 2-Dose Series ([employer]) 05/01/2021 COVID-19, MRNA-LNP, PF, 30 M CG/0.3 mL, 12 YRS AND ABOVE, IM (PFIZER-Comirnat) 07/18/2023 Pneumococcal Conjugate Vacci ne, 20-valent ([email or web address]) 04/29/2023 Seasonal Influenza Vac., MDV , IM, [...] Telephone Encounter - Elizabeth Yap RN - 10/26/2024 3:48 PM EST Order [id number] for Chante Harvey (1950) is being fulfilled by [employer]. If youneed assistance with this order, please call . * Telephone Encounter - Elizabeth Yap RN - 10/26/2024 8:09 AM EST Sent to [employer] * Telephone Encounter - Kristie Franks MD - 10/25/2024 2:31 PM EST Note is addended * Telephone Encounter - Elizabeth Yap RN - 10/25/2024 7:15 AM EST Can you addend the note of 09/29/24 to state pt has incontinence and uses pads for this * Telephone Encounter - Kristie Franks MD - 10/22/2024 9:08 AM EST Order signed. * Telephone Encounter - Elizabeth Yap RN - 10/21/2024 3:19 PM EST Order will have to go thru [facility], pt has [facility] GOLD * Telephone Encounter - Serena Porter PHARM Tech - 10/21/2024 1:12 PM EST Pt calling in stating that she needs a new medical supply company, pt recently moved. Pt requestingurinary pads and needs them high priority. Verified Pt's address on file and it is correct. Pt no longer going through [facility] . An order was requested for this patient. Name of Requestor: Chante Harvey Order Request: Urinary Pads - ROUTE TO CLINIC NURSE POOL Diagnosis/Reason for Request: per pt request Does the order need to be faxed somewhere? If so, where?: n/a Fax Number, if applicable: n/a Call Back Number: [phone] Thank you, Serena Porter Business Services Administrator [facility] 10/21/2024,1:13 PM documented in this encounter Plan of Treatment Upcoming Encounters Date Type Department Care Team (Late st Contact Info) Description 11/04/2024 10:00 AM EST Office Visit Audiology [facility] [address] [facility] [place] [address] Kaitlin Mcintyre Au.D. [address] [place] [address] 12/08/2024 10:00 AM EDT Office Visit Cardiology, [facility] 132 [facility] [address] Selena Villanueva CRNP [address] [facility] [place] [address] 01/19/2025 11:40 AM EDT Office Visit Family [address] [phone] Kristie Franks MD [address] [place] [address] [place] [address] 01/25/2025 3:40 PM EDT Office Visit Neurology [facility] [address] [place] [address] Otilio Bee MD [address] [place], [place] [phone] 03/16/2025 1:00 PM EDT Office Visit Family [address] [phone] Kristie Franks MD [address] [place] [address] [place] [address] Scheduled Procedures Name Priority Associated Diagnoses Date/Ti [...] 02/09/2024, 03/0 04/2023 CKD HGB USE SMARTSET 57969 02/08/202502/08, 01/26/2021, 01/20/2021, Additional history exists GFR 03/29/2025 09/29/2024, 06/0 11/2023, 04/29/2023, Additional history exists HbA1c 03/29/2025 09/29/2024, 06/0 11/2023, 04/29/2023, Additional history exists Depression Monitoring 04/12/2025 04/12/2024 O2 ASSESSMENT COMPLETED IN PAST YEAR FOR COPD 07/28/2025 07/28/2024 CKD PHOS USE SMARTSET 41472 09/29/2025 09/29/2024, 0 10/05/1997 Diabetic Foot Exam [...] as of this encounter Visit Diagnoses Diagnosis Female stress incontinence- Primary Neuroleptic-induced parkinsonism (HCC) Secondary Parkinsonism History of CVA (cerebrovascular accident) Transient ischemic attack (TIA), and cerebral infarction without residual deficits Tremors of nervous system Abnormal involuntary movements Spinal stenosis of lumbar region without neurogenic claudication Spinal stenosis, lumbar region, without neurogenic claudication documented in this encounter Care Teams User Experience Architect Relationship Specialty Start Date End Date Kristie Franks MD [address] [place] [address] [place] [phone] PCP - General Family Medicine 11/18/22 documented as of this encounter
--- OUTSIDE RECORDS SUMMARY | 2024-12-06 20:53 | External Medical Summary | Summary of Care ---
Author Name Unknown Organization [facility] Address [address] [place] [address] Phone [phone] Care Team Providers Care Orthotic Aide Name Role Phone Kristie Franks MD Primary Care Prov ider Reason for Visit * Reason Onset Date Comments Order Request 10/21/2024 [facility] Encounter Details Date Type Department Care Team (Late st Contact Info) Description 10/21/2024 Telephone Family Medicine [address] [phone] Kristie Franks MD [address] [place] [phone] Order Request ([facility]) Allergies Active Allergy Reactions Criticality Noted Date [...] kidney disease, unspecified CKD stage, unspecified whether auto parker insulin use (HCC) Test once Daily Dx [...] mRNA, LNP-s, No Pre serve, 2-Dose Series ([employer]) 05/01/2021 COVID-19, MRNA-LNP, PF, 30 M CG/0.3 mL, 12 YRS AND ABOVE, IM (PFIZER-Comirnat) 07/18/2023 Pneumococcal Conjugate Vacci ne, 20-valent ([email or web address]) 04/29/2023 Seasonal Influenza Vac., MDV , IM, [...] - 10/26/2024 8:09 AM EST Sent to [facility] * Telephone Encounter - Kristie Franks MD [...] go thru [facility], pt has [facility] ANGIE * Telephone Encounter - Serena Porter PHARM Tech - 10/21/2024 1:12 PM EST Pt calling in stating that she needs a new medical supply company, pt recently moved. Pt requestingurinary pads and needs them high priority. Verified Pt's address on file and it is correct. Pt no longer going through [facility] . An order was requested for this patient. Name of Requestor: Chante Harvey Order Request: Urinary Pads - ROUTE TO CLINIC NURSE POOL Diagnosis/Reason for Request: per pt request Does the order need to be faxed somewhere? If so, where?: n/a Fax Number, if applicable: n/a Call Back Number: [phone] Thank you, Serena Porter Fuel Cell Technician [facility] 10/21/2024,1:13 PM documented in this encounter Plan of Treatment Upcoming Encounters Date Type Department Care Team (Late st Contact Info) Description 11/04/2024 10:00 AM EST Office Visit Audiology [facility] [address] [place] [address] Kaitlin Mcintyre Au.D. [address] [place] [address] 12/08/2024 10:00 AM EDT Office Visit Cardiology, [facility] 132 [facility] [place] [address] Selena Villanueva CRNP [address] [place] [address] 01/19/2025 11:40 AM EDT Office Visit Family [address] [phone] Kristie Franks MD [address] [place] [address] [place] [address] 01/25/2025 3:40 PM EDT Office Visit Neurology [facility] [address] [place] [address] Otilio Bee MD [address] [place] [address] 03/16/2025 1:00 PM EDT Office Visit Family [address] [phone] Kristie Franks MD [address] [place] [address] [place] [address] Scheduled Procedures Name Priority Associated Diagnoses Date/Ti [...] 02/09/2024, 03/0 04/2023 CKD HGB USE SMARTSET 82367 02/08/202502/08, 01/26/2021, 01/20/2021, Additional history exists GFR 03/29/2025 09/29/2024, 06/0 11/2023, 04/29/2023, Additional history exists HbA1c 03/29/2025 09/29/2024, 06/0 11/2023, 04/29/2023, Additional history exists Depression Monitoring 04/12/2025 04/12/2024 O2 ASSESSMENT COMPLETED IN PAST YEAR FOR COPD 07/28/2025 07/28/2024 CKD PHOS USE SMARTSET 30041 09/29/2025 09/29/2024, 0 10/05/1997 Diabetic Foot Exam [...] claudication documented in this encounter Care Teams Orthotic Aide Relationship Specialty Start Date End Date Kristie Franks MD [address] [place] [address] [place] [phone] PCP - General Family Medicine 11/18/22 documented as of this encounter
--- OUTSIDE RECORDS SUMMARY | 2024-12-06 20:53 | External Medical Summary | Summary of Care ---
Author Name Unknown Organization [facility] Address [address] [place] [address] Phone [phone] Care Team Providers Care Manager Proposal Name Role Phone Kristie Franks MD Primary Care Prov ider Reason for Visit * Reason Onset Date Comments Order Request 10/27/2024 Incontinence pad s Encounter Details Date Type Department Care Team (Late st Contact Info) Description 10/27/2024 Telephone Family Medicine [address] [phone] Kristie Franks MD [address] [place] [phone] Order Request (Incontinence pads) Allergies Active Allergy Reactions Criticality Noted Date Comments Latex 04/04/2009 Penicillins Low 03/24/2023 "It makes my bottom sore" documented as of this encounter (statuses as of 10/29/2024) Medications Escitalopram Oxalate 20 MG Oral Tablet (Lexapro) Take 1 Tablet by mouth in the morning. 09/28/19 Active Austedo 12 MG Oral Tablet Take 2 Tablets by mouth in the morning and 2 Tablets before bedtime. 10/29/19 23 Active OneTouch UltraSoft LancetsIndications: Type 2 diabetes mellitus with diabetic chronic kidney disease, unspecified CKD stage, unspecified whether buttermaker helper insulin use (HCC) Test once Daily Dx [...] as of this encounter (statuses as of 10/29/2024) Active Problems Problem Noted Date Diagnosed Date [...] as of this encounter (statuses as of 10/29/2024) Resolved Problems Problem Noted Date Diagnosed Date Resolved Date Alzheimer's disease, unspecified (CODE) 02/09/2024 04/07/2024 Type 2 diabetes mellitus wit h diabetic chronic kidney disease 11/13/2022 02/09/2024 Malignant neoplasm of uterus 11/04/2019 09/29/2024 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 documented as of this encounter (statuses as of 10/29/2024) Immunizations Name Administration Dates Next Due COVID-19 mRNA, LNP-s, No Pre serve, 2-Dose Series ([employer]) 05/01/2021 COVID-19, MRNA-LNP, PF, 30 M CG/0.3 mL, 12 YRS AND ABOVE, IM (mon.ki-Comirnaty) 07/18/2023 Pneumococcal Conjugate Vacci ne, 20-valent ([email or web address]) 04/29/2023 Seasonal Influenza Vac., MDV , IM, [...] Telephone Encounter - Elizabeth Yap RN - 10/29/2024 7:26 AM EST Order [id number] for Chante Harvey (1950) has been delivered by [employer]. If you have any questions, please call . * Telephone Encounter - Fely Borjas OSA - 10/27/2024 12:01 PM EST An order was requested for this patient. Name of Requesting Provider: self Order Requested: Incontinence pads Diagnosis/Reason for Request: weak bladder Almost out of pads at home. What location AND department does the patient wish to have their order completed at? [facility] Fax Number, if applicable: [phone] If the caller is not a current [...] 11/02/2024 3:20 PM EST Office Visit Family [address] [phone] Lars Vidal CRNP [address] [place] [address] [place] [phone] 11/04/2024 10:00 AM EST Office Visit Audiology [facility] [address] [place] [address] Kaitlin Mcintyre Au.D. [address] [place] [address] 12/08/2024 10:00 AM EDT Office Visit Cardiology, [facility] 132 [place] [address] Selena Villanueva CRNP [address] [place] [address] 01/19/2025 11:40 AM EDT Office Visit Family [address] [phone] Kristie Franks MD [address] [place] [address] [place] [address] 01/25/2025 3:40 PM EDT Office Visit Neurology [facility] 200 [facility] [place] [address] Otilio Bee MD [address] [place] [address] 03/16/2025 1:00 PM EDT Office Visit Family Medicine [address] [place] [phone] Kristie Franks MD [address] [place] [address] [place] [address] Scheduled Procedures Name Priority Associated Diagnoses Date/Ti [...] 02/09/2024, 03/0 04/2023 CKD HGB USE SMARTSET 31030 02/08/202502/08, 01/26/2021, 01/20/2021, Additional history exists GFR 03/29/2025 09/29/2024, 06/0 11/2023, 04/29/2023, Additional history exists HbA1c 03/29/2025 09/29/2024, 06/0 11/2023, 04/29/2023, Additional history exists Depression Monitoring 04/12/2025 04/12/2024 O2 ASSESSMENT COMPLETED IN PAST YEAR FOR COPD 07/28/2025 07/28/2024 CKD PHOS USE SMARTSET 76503 09/29/2025 09/29/2024, 0 10/05/1997 Diabetic Foot Exam [...] as of this encounter Care Teams Manager Proposal Relationship Specialty Start Date End Date Kristie Franks MD [address] [place] [address] [place] [phone] PCP - General Family Medicine 11/18/22 documented as of this encounter
--- OUTSIDE RECORDS SUMMARY | 2024-12-06 20:53 | External Medical Summary | Summary of Care ---
Author Name Unknown Organization [facility] Address [address] [place] [address] Phone [phone] Care Team Providers Care Acoustic Sensor Operator Name Role Phone Kristie Franks MD Primary Care Prov ider Reason for Visit * Reason Onset Date Comments Appointment 10/22/2024 Appt required wi th PCP Encounter Details Date Type Department Care Team (Late st Contact Info) Description 10/22/2024 Telephone Family Medicine [address] [phone] Kristie Franks MD [address] [place] [id number] Appointment (Appt required with PCP) Allergies Active Allergy Reactions Criticality Noted Date [...] kidney disease, unspecified CKD stage, unspecified whether tank terminal gauger insulin use (HCC) Test once [...] mRNA, LNP-s, No Pre serve, 2-Dose Series ([employer]ur[employer]) 05/01/2021 COVID-19, MRNA-LNP, PF, 30 M CG/0.3 mL, 12 YRS AND ABOVE, IM (P[employer]ER-[employer]) 07/18/2023 Pneumococcal Conjugate Vacci ne, 20-valent ([id number]) 04/29/2023 Seasonal Influenza Vac., MDV , IM, [...] Encounter - Elizabeth Yap RN - 10/29/2024 10:44 AM EST Message left on Voice Mail I scheduled pt for Dr Dangelo 11/10/24 @ 9:40 please arrive by 9:30 * Telephone Encounter - Yvonne Monsalve OSA - 10/27/2024 3:22 PM EST Patient is calling back in again today about wanting to go back on her oxycodone medication. I advised patient that she needs to have an apt with Dr Ruperto Harvey first before she will do anything but there are no available appointments with her any time in the next few months. Patient states that her grand daughter has to bring her to apts so she is dependent on her schedule. She is wondering what options Dr Ruperto Harvey can give her? She said since she moved out of her sisters house, her sister is now causing problems for her because she is no longer getting money as her caregiver. * Telephone Encounter - Kristie Franks MD - 10/25/2024 2:33 PM EST NEEDS APPT WITH DR DANGELO FOR ANY REFILLS OR ADJUSTMENTS OF PAIN MEDICATION * Telephone Encounter - Elizabeth Yap RN - 10/25/2024 12:07 PM EST No answer, mail box is full. Pt has not used My Chart in 2 years IF PT CALLS BACK< SEE BELOW< SHE NEEDS AN APPT WITH DR RUPERTO HARVEY ONLY * Telephone Encounter - Elizabeth Yap RN - 10/25/2024 11:27 AM EST LEBRON Flowers and Gertrudis. There have been multiple messages about pain meds for this patient and a concern in past notes of possible family taking her meds * Telephone Encounter - Cony Dave OSA - 10/22/2024 3:39 PM EST Pt calling that she live with her Granddaughter Pt left her sisters house and the sister is mad because she is not getting paid to take care of thePt and is telling lies about her that are not true Pt advised she moved out because they were mean to her Pt calling that the Patches do Not work as well as the oxycodone for her Back Pt advised that the Patches only help like 1 hr and then the Pain comes Back Pt asking for a Call Back Pt can at [phone] * Telephone Encounter - David Harry OSA - 10/22/2024 3:24 PM EST Reason for patient's call: Pt called back in to speak with nurse, Call dropped when being transferred again. * Telephone Encounter - Angelique Mcgovern OSA - 10/22/2024 3:21 PM EST Transferred pt over and the call dropped talked [place] and she sated her manager studio is work on itand I am going to call pt back and rely the message When I called I got her voicemail and it was full could not leave a message Thanks * Telephone Encounter - Anthony Canas LPN - 10/22/2024 3:18 PM EST Call dropped before transferred. After reviewing chart, multiple TE's on same issues and PCP and transplant case manager is managing concern inother TE's. * Telephone Encounter - Jesusita Soler OSA - 10/22/2024 3:08 PM EST Reason for patient's call: PT calling back-patch not working oxycodone works much better for PT. She would like to speak to a nurse. Caller was transferred to [place] at the nurse line. FYI-PT states sisters daughter (whom she used to live with-does not now) is addicted to Oxycodone. FYI documented in this encounter Plan of Treatment Upcoming Encounters Date Type Department Care Team (Late st Contact Info) Description 11/02/2024 3:20 PM EST Office Visit Family [address] [phone] Lars Vidal CRNP [address] [place] [address] [place] [address] 11/04/2024 10:00 AM EST Office Visit Audiology [facility] [address] Kaitlin Mcintyre Au.D. 132 [place] [address] 11/10/2024 9:40 AM EST Office Visit Family [address] [phone] Kristie Franks MD [address] [place] [address] [place] [address] 12/08/2024 10:00 AM EDT Office Visit Cardiology, [facility] 132 [facility] [place] [address] Selena Villanueva CRNP [address] [place] [address] 01/19/2025 11:40 AM EDT Office Visit Family Medicine [address] [phone] Kristie Franks MD [address] [place] [address] [place] [address] 01/25/2025 3:40 PM EDT Office Visit Neurology [facility] [place] [address] Otilio Bee MD [address] [place] [address] 03/16/2025 1:00 PM EDT Office Visit Family Medicine [address] [place] [phone] Kristie Franks MD [address] [place] [address] [place] [address] Scheduled Procedures Name Priority Associated Diagnoses Date/Ti [...] 02/09/2024, 03/0 04/2023 CKD HGB USE SMARTSET 15877 02/08/202502/08, 01/26/2021, 01/20/2021, Additional history exists GFR 03/29/2025 09/29/2024, 06/0 11/2023, 04/29/2023, Additional history exists HbA1c 03/29/2025 09/29/2024, 06/0 11/2023, 04/29/2023, Additional history exists Depression Monitoring 04/12/2025 04/12/2024 O2 ASSESSMENT COMPLETED IN PAST YEAR FOR COPD 07/28/2025 07/28/2024 CKD PHOS USE SMARTSET 80676 09/29/2025 09/29/2024, 0 10/05/1997 Diabetic Foot Exam [...] filedocumented as of this encounter Care Teams Acoustic Sensor Operator Relationship Specialty Start Date End Date Kristie Franks MD [address] [place] [address] [place] [phone] PCP - General Family Medicine 11/18/22 documented as of this encounter
--- OUTSIDE RECORDS SUMMARY | 2024-12-06 20:53 | External Medical Summary | Summary of Care ---
Author Name Unknown Organization [facility] Address [address] [place] [address] Phone [phone] Care Team Providers Care Dewatering Filtering Supervisor Name Role Phone Kristie Franks MD Primary Care Prov ider Reason for Visit * Reason Onset Date Comments Advice 10/22/2024 Encounter Details Date Type Department Care Team (Late st Contact Info) Description 10/22/2024 Telephone Family Medicine [address] [phone] Kristie Franks MD [address] [place] [address] [place] [address] Advice Allergies Active Allergy Reactions Criticality Noted Date Comments Latex 04/04/2009 Penicillins Low 03/24/2023 "It makes my bottom sore" documented as of this encounter (statuses as of 10/27/2024) Medications Escitalopram Oxalate 20 MG Oral Tablet (Lexapro) Take 1 Tablet by mouth in the morning. 09/28/19 Active Austedo 12 MG Oral Tablet Take 2 Tablets by mouth in the morning and 2 Tablets before bedtime. 10/29/19 Active OneTouch UltraSoft LancetsIndications: Type 2 diabetes mellitus with diabetic chronic kidney disease, unspecified CKD stage, unspecified whether middle or intermediate school principal insulin use (HCC) Test once Daily Dx [...] as of this encounter (statuses as of 10/27/2024) Active Problems Problem Noted Date Diagnosed Date [...] as of this encounter (statuses as of 10/27/2024) Resolved Problems Problem Noted Date Diagnosed Date Resolved Date Alzheimer's disease, unspecified (CODE) 02/09/2024 04/07/2024 Type 2 diabetes mellitus wit h diabetic chronic kidney disease 11/13/2022 02/09/2024 Malignant neoplasm of uterus 11/04/2019 09/29/2024 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 documented as of this encounter (statuses as of 10/27/2024) Immunizations Name Administration Dates Next Due COVID-19 mRNA, LNP-s, No Pre serve, 2-Dose Series ([employer]) 05/01/2021 COVID-19, MRNA-LNP, PF, 30 M CG/0.3 mL, 12 YRS AND ABOVE, IM ([facility]) 07/18/2023 Pneumococcal Conjugate Vacci ne, 20-valent ([id number]) 04/29/2023 Seasonal Influenza Vac., MDV , IM, [...] encounter Miscellaneous Notes * Telephone Encounter - Yvonne Monsalve OSA [...] 2:33 PM EST NEEDS APPT WITH DR GAGE FOR ANY REFILLS OR ADJUSTMENTS OF PAIN [...] for a Call Back Pt can at [phone] * Telephone Encounter - David Harry OSA - 10/22/2024 3:24 PM EST Reason for patient's call: Pt called back in to speak with nurse, Call dropped when being transferred again. * Telephone Encounter - Angelique Mcgovern OSA - 10/22/2024 3:21 PM EST Transferred pt over and the call dropped talked Gladis and she sated her credit collections manager is work on itand I am going to call pt back and rely the message When I called I got her voicemail and it was full could not leave a message Thanks * Telephone Encounter - Anthony Canas LPN - 10/22/2024 3:18 PM EST Call dropped before transferred. After reviewing chart, multiple TE's on same issues and PCP and child welfare caseworker is managing concern inother TE's. * Telephone Encounter - Jesusita Soler OSA - 10/22/2024 3:08 PM EST Reason for patient's call: PT calling back-patch not working oxycodone works much better for PT. She would like to speak to a nurse. Caller was transferred to [place] at the nurse line. FYI-PT states sisters daughter (whom she used to live with-does not now) is addicted to Oxycodone. FYI documented in this encounter Plan of Treatment Upcoming Encounters Date Type Department Care Team (Late st Contact Info) Description 11/04/2024 10:00 AM EST Office Visit Audiology [facility] [place] [address] Kaitlin Mcintyre Au.D. [address] [place] [address] 12/08/2024 10:00 AM EDT Office Visit Cardiology, [facility] [address] [facility] [place] [address] Selena Villanueva CRNP 400 [facility] [place] [address] 01/19/2025 11:40 AM EDT Office Visit Family [address] [phone] Kristie Franks MD [address] [place] [address] [place] [address] 01/25/2025 3:40 PM EDT Office Visit Neurology [facility] 200 [place] [address] Otilio Bee MD [address] [place] [address] 03/16/2025 1:00 PM EDT Office Visit Family Medicine [address] [phone] Kristie Franks MD [address] [place] [address] [place] [address] Scheduled Procedures Name Priority Associated Diagnoses Date/Ti [...] 02/09/2024, 03/0 04/2023 CKD HGB USE SMARTSET 16299 02/08/202502/08, 01/26/2021, 01/20/2021, Additional history exists GFR 03/29/2025 09/29/2024, 06/0 11/2023, 04/29/2023, Additional history exists HbA1c 03/29/2025 09/29/2024, 06/0 11/2023, 04/29/2023, Additional history exists Depression Monitoring 04/12/2025 04/12/2024 O2 ASSESSMENT COMPLETED IN PAST YEAR FOR COPD 07/28/2025 07/28/2024 CKD PHOS USE SMARTSET 15162 09/29/2025 09/29/2024, 0 10/05/1997 Diabetic Foot Exam [...] filedocumented as of this encounter Care Teams Dewatering Filtering Supervisor Relationship Specialty Start Date End Date Kristie Franks MD [address] [place] [address] [place] [address] PCP - General Family Medicine 11/18/22 documented as of this encounter
--- OUTSIDE RECORDS SUMMARY | 2024-12-06 20:53 | External Medical Summary | Summary of Care ---
Author Name Unknown Organization [facility] Address [address] [place] [address] Phone [phone] Care Team Providers Care Strip Machine Tender Name Role Phone Kristie Franks MD Primary Care Prov ider Reason for Visit * Reason Onset Date Comments Advice 10/22/2024 Encounter Details Date Type Department Care Team (Late st Contact Info) Description 10/22/2024 Telephone Family Medicine [address] [phone] Kristie Franks MD [address] [place] [address] [place] [address] Advice Allergies Active Allergy Reactions Criticality Noted Date Comments Latex 04/04/2009 Penicillins Low 03/24/2023 "It makes my bottom sore" documented as of this encounter (statuses as of 10/25/2024) Medications Escitalopram Oxalate 20 MG Oral Tablet [...] as of this encounter (statuses as of 10/25/2024) Active Problems Problem Noted Date Diagnosed Date [...] as of this encounter (statuses as of 10/25/2024) Resolved Problems Problem Noted Date Diagnosed Date Resolved Date Alzheimer's disease, unspecified (CODE) 02/09/2024 04/07/2024 Type 2 diabetes mellitus wit h diabetic chronic kidney disease 11/13/2022 02/09/2024 Malignant neoplasm of uterus 11/04/2019 09/29/2024 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 documented as of this encounter (statuses as of 10/25/2024) Immunizations Name Administration Dates Next Due COVID-19 mRNA, LNP-s, No Pre serve, 2-Dose Series ([employer]) 05/01/2021 COVID-19, MRNA-LNP, PF, 30 M CG/0.3 mL, 12 YRS AND ABOVE, IM ([facility]) 07/18/2023 Pneumococcal Conjugate Vacci ne, 20-valent (Topwanc14) 04/29/2023 Seasonal Influenza Vac., MDV , IM, [...] BELOW< SHE NEEDS AN APPT WITH DR JANE HARVEY ONLY * Telephone Encounter - Elizabeth [...] for a Call Back Pt can at [phone] * Telephone Encounter - David Harry OSA - 10/22/2024 3:24 PM EST Reason for patient's call: Pt called back in to speak with nurse, Call dropped when being transferred again. * Telephone Encounter - Angelique Mcgovern OSA - 10/22/2024 3:21 PM EST Transferred pt over and the call dropped talked Glad[place] and she sated her manager business management is work on itand I am going to call pt back and rely the message When I called I got her voicemail and it was full could not leave a message Thanks * Telephone Encounter - Anthony Canas LPN - 10/22/2024 3:18 PM EST Call dropped before transferred. After reviewing chart, multiple TE's on same issues and PCP and porter sample case is managing concern inother TE's. * Telephone Encounter - Jesusita Soler OSA - 10/22/2024 3:08 PM EST Reason for patient's call: PT calling back-patch not working oxycodone works much better for PT. She would like to speak to a nurse. Caller was transferred to [place] at the nurse line. FYI-PT states sisters daughter (whom she used to live with-does not now) is addicted to Oxycodone. FYI documented in this encounter Plan of Treatment Upcoming Encounters Date Type Department Care Team (Late st Contact Info) Description 11/04/2024 10:00 AM EST Office Visit Audiology [facility] 132 [facility] [place] [address] Kaitlin Mcintyre Au.D. 132 [facility] [place] [address] 12/08/2024 10:00 AM EDT Office Visit Cardiology, [facility] 132 [facility] [place] [address] Selena Villanueva CRNP [address] [place] [address] [place] [address] 01/19/2025 11:40 AM EDT Office Visit Family Medicine [address] [place] [phone] Kristie Franks MD [address] [place] [address] [place] [address] 01/25/2025 3:40 PM EDT Office Visit Neurology [facility] 200 [facility] [place] [address] Otilio Bee MD [address] [facility] [place] [address] 03/16/2025 1:00 PM EDT Office Visit Family Medicine [address] [place] [phone] Kristie Franks MD [address] [place] [address] [place] [address] Scheduled Procedures Name Priority Associated Diagnoses Date/Ti [...] 02/09/2024, 03/0 04/2023 CKD HGB USE SMARTSET 11761 02/08/202502/08, 01/26/2021, 01/20/2021, Additional history exists GFR 03/29/2025 09/29/2024, 06/0 11/2023, 04/29/2023, Additional history exists HbA1c 03/29/2025 09/29/2024, 06/0 11/2023, 04/29/2023, Additional history exists Depression Monitoring 04/12/2025 04/12/2024 O2 ASSESSMENT COMPLETED IN PAST YEAR FOR COPD 07/28/2025 07/28/2024 CKD PHOS USE SMARTSET 67988 09/29/2025 09/29/2024, 0 10/05/1997 Diabetic Foot Exam [...] filedocumented as of this encounter Care Teams Strip Machine Tender Relationship Specialty Start Date End Date Kristie Franks MD [address] [place] [address] [place] Jaram[place] [phone] PCP - General Family Medicine 11/18/22 documented as of this encounter
--- OUTSIDE RECORDS SUMMARY | 2024-12-06 20:53 | External Medical Summary | Summary of Care ---
Author Name Unknown Organization [facility] Address [address] [place] [address] Phone [phone] Care Team Providers Care Compressor Station Operator Name Role Phone Kristie Franks MD Primary Care Prov ider Reason for Visit * Reason Onset Date Comments Advice 10/22/2024 Encounter Details Date Type Department Care Team (Late st Contact Info) Description 10/22/2024 Telephone Family Medicine [address] [phone] Kristie Franks MD [address] [place] [address] [place] [address] Advice Allergies Active Allergy Reactions Criticality [...] disease, unspecified CKD stage, unspecified whether superintendent terminal insulin use (HCC) Test once Daily [...] mRNA, LNP-s, No Pre serve, 2-Dose Series ([employer]) 05/01/2021 COVID-19, MRNA-LNP, PF, 30 M CG/0.3 mL, 12 YRS AND ABOVE, IM ([facility]) 07/18/2023 Pneumococcal Conjugate Vacci ne, 20-valent (Pyjhnoc78) 04/29/2023 Seasonal Influenza Vac., MDV , IM, [...] for a Call Back Pt can at [phone] * Telephone Encounter - David Harry OSA - 10/22/2024 3:24 PM EST Reason for patient's call: Pt called back in to speak with nurse, Call dropped when being transferred again. * Telephone Encounter - Angelique Mcgovern OSA - 10/22/2024 3:21 PM EST Transferred pt over and the call dropped talked Gladis and she sated her plant maintenance manager is work on itand I am going to call pt back and rely the message When I called I got her voicemail and it was full could not leave a message Thanks * Telephone Encounter - Anthony Canas LPN - 10/22/2024 3:18 PM EST Call dropped before transferred. After reviewing chart, multiple TE's on same issues and PCP and behavioral health case manager is managing concern inother TE's. * Telephone Encounter - Jesusita Soler OSA - 10/22/2024 3:08 PM EST Reason for patient's call: PT calling back-patch not working oxycodone works much better for PT. She would like to speak to a nurse. Caller was transferred to [place] at the nurse line. FYI-PT states sisters daughter (whom she used to live with-does not now) is addicted to Oxycodone. FYI documented in this encounter Plan of Treatment Upcoming Encounters Date Type Department Care Team (Late st Contact Info) Description 11/04/2024 10:00 AM EST Office Visit Audiology [facility] 132 [facility] [place] [address] Kaitlin Mcintyre Au.D. 132 [facility] [place] [address] 12/08/2024 10:00 AM EDT Office Visit Cardiology, [facility] 132 [facility] [place] [address] Selena Villanueva CRNP [address] [place] [address] [place] [address] 01/19/2025 11:40 AM EDT Office Visit Family Medicine [address] [place] [phone] Kristie Franks MD [address] [place] [address] [place] [address] 01/25/2025 3:40 PM EDT Office Visit Neurology [facility] 200 [facility] [place] [address] Otilio Bee MD [address] [facility] [place] [address] 03/16/2025 1:00 PM EDT Office Visit Family Medicine [address] [place] [phone] Kristie Franks MD [address] [place] [address] [place] [address] Scheduled Procedures Name Priority Associated Diagnoses Date/Ti [...] 02/09/2024, 03/0 04/2023 CKD HGB USE SMARTSET 81761 02/08/202502/08, 01/26/2021, 01/20/2021, Additional history exists GFR 03/29/2025 09/29/2024, 06/0 11/2023, 04/29/2023, Additional history exists HbA1c 03/29/2025 09/29/2024, 06/0 11/2023, 04/29/2023, Additional history exists Depression Monitoring 04/12/2025 04/12/2024 O2 ASSESSMENT COMPLETED IN PAST YEAR FOR COPD 07/28/2025 07/28/2024 CKD PHOS USE SMARTSET 50777 09/29/2025 09/29/2024, 0 10/05/1997 Diabetic Foot Exam [...] filedocumented as of this encounter Care Teams Compressor Station Operator Relationship Specialty Start Date End Date Kristie Franks MD [address] [place] [address] [place] Jaramillo [phone] PCP - General Family Medicine 11/18/22 documented as of this encounter
--- OUTSIDE RECORDS SUMMARY | 2024-12-06 20:53 | External Medical Summary | Summary of Care ---
Author Name Unknown Organization [facility] Address [address] [place] [address] Phone [phone] Care Team Providers Care Reference Services Head Name Role Phone Kristie Franks MD Primary Care Prov ider Reason for Visit * Reason Onset Date Comments Advice 10/28/2024 Encounter Details Date Type Department Care Team (Late st Contact Info) Description 10/28/2024 Telephone Family Medicine [address] [phone] Kristie Franks MD [address] [place] [address] [place] [address] Advice Allergies Active Allergy Reactions Criticality Noted Date Comments Latex 04/04/2009 Penicillins Low 03/24/2023 "It makes my bottom sore" documented as of this encounter (statuses as of 11/01/2024) Medications Escitalopram Oxalate 20 MG Oral Tablet (Lexapro) Take 1 Tablet by mouth in the morning. 09/28/19 Active Austedo 12 MG Oral Tablet Take 2 Tablets by mouth in the morning and 2 Tablets before bedtime. 10/29/19 Active OneTouch UltraSoft LancetsIndications: Type 2 diabetes mellitus with diabetic chronic kidney disease, unspecified CKD stage, unspecified whether rn long term care insulin use (HCC) Test [...] as of this encounter (statuses as of 11/01/2024) Active Problems Problem Noted Date Diagnosed Date [...] as of this encounter (statuses as of 11/01/2024) Resolved Problems Problem Noted Date Diagnosed Date Resolved Date Alzheimer's disease, unspecified (CODE) 02/09/2024 04/07/2024 Type 2 diabetes mellitus wit h diabetic chronic kidney disease 11/13/2022 02/09/2024 Malignant neoplasm of uterus 11/04/2019 09/29/2024 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 documented as of this encounter (statuses as of 11/01/2024) Immunizations Name Administration Dates Next Due COVID-19 mRNA, LNP-s, No Pre serve, 2-Dose Series ([employer]) 05/01/2021 COVID-19, MRNA-LNP, PF, 30 M CG/0.3 mL, 12 YRS AND ABOVE, IM ([employer]) 07/18/2023 Pneumococcal Conjugate Vacci ne, 20-valent ([id number]) 04/29/2023 Seasonal Influenza Vac., MDV , IM, [...] money to buy more. Never true 04/22/20 Within the past 12 months, t he [...] encounter Miscellaneous Notes * Telephone Encounter - Loni Monaco LPN - 11/01/2024 10:46 AM EST Appt was scheduled. * Telephone Encounter - Killian Murray OSA - 10/28/2024 11:45 AM EST Pt called in stating that needs an appt for Friday11/02/24 around 12:00. States that she needs to talk to Dr. Ruperto Gutierres about her medication. Pt said that the Fetanyl patches are not working but when she was on oxycodone that helped a lot. Was wondering If she could switch back to the 10mg Oxydodone instead of the Fantanyl patch. documented in this encounter Plan of Treatment Upcoming Encounters Date Type Department Care Team (Late st Contact Info) Description 11/02/2024 3:20 PM EST Office Visit Family [address] [phone] Lars Vidal CRNP [address] [place] [address] [place] Jaram[place] [phone] 11/04/2024 10:00 AM EST Office Visit Audiology [facility] 132 [facility] [place] [address] Kaitlin Mcintyre Au.D. 132 [place] [address] 11/10/2024 9:40 AM EST Office Visit [address] [phone] Kristie Franks MD [address] [place] [address] [place] Jaram[place] [address] 12/08/2024 10:00 AM EDT Office Visit [facility], [facility] [address] Selena Villanueva CRNP [address] [place] [address] 01/19/2025 11:40 AM EDT Office Visit Family [address] [phone] Kristie Franks MD [address] [place] [address] [place] Jaramillo [address] 01/25/2025 3:40 PM EDT Office Visit Neurology [facility] [address] [place] [address] Otilio Bee MD [address] [place] [address] 03/16/2025 1:00 PM EDT Office Visit Family Medicine [address] [place] [phone] Kristie Franks MD [address] [place] [address] [place] Jaramillo [address] Scheduled Procedures Name Priority Associated Diagnoses Date/Ti [...] 02/09/2024, 03/0 04/2023 CKD HGB USE SMARTSET 17682 02/08/202502/08, 01/26/2021, 01/20/2021, Additional history exists GFR 03/29/2025 09/29/2024, 06/0 11/2023, 04/29/2023, Additional history exists HbA1c 03/29/2025 09/29/2024, 06/0 11/2023, 04/29/2023, Additional history exists Depression Monitoring 04/12/2025 04/12/2024 O2 ASSESSMENT COMPLETED IN PAST YEAR FOR COPD 07/28/2025 07/28/2024 CKD PHOS USE SMARTSET 40515 09/29/2025 09/29/2024, 0 10/05/1997 Diabetic Foot Exam [...] filedocumented as of this encounter Care Teams Reference Services Head Relationship Specialty Start Date End Date Kristie Franks MD [address] [place] [address] B[place] Jaramillo [phone] PCP - General Family Medicine 11/18/22 documented as of this encounter
--- OUTSIDE RECORDS SUMMARY | 2024-12-06 20:54 | External Medical Summary | Summary of Care ---
Author Name Unknown Organization [facility] Address [address] [place] [address] Phone [phone] Care Team Providers Care Appeals Writer Name Role Phone Kristie Franks MD Primary Care Prov ider Reason for Visit * Reason Onset Date Comments Advice 10/22/2024 Encounter Details Date Type Department Care Team (Late st Contact Info) Description 10/22/2024 Telephone Family Medicine [address] [phone] Kristie Franks MD [address] [place] [address] [place] [address] Advice Allergies Active Allergy Reactions Criticality Noted Date Comments Latex 04/04/2009 Penicillins Low 03/24/2023 "It makes my bottom sore" documented as of this encounter (statuses as of 10/22/2024) Medications Escitalopram Oxalate 20 MG Oral Tablet (Lexapro) Take 1 Tablet by mouth in the morning. 09/28/19 Active Austedo 12 MG Oral Tablet Take 2 Tablets by mouth in the morning and 2 Tablets before bedtime. 10/29/19 Active OneTouch UltraSoft LancetsIndications: Type 2 diabetes mellitus with diabetic chronic kidney disease, unspecified CKD stage, unspecified whether quality nurse insulin use (HCC) Test once Daily [...] as of this encounter (statuses as of 10/22/2024) Active Problems Problem Noted Date Diagnosed Date [...] as of this encounter (statuses as of 10/22/2024) Resolved Problems Problem Noted Date Diagnosed Date Resolved Date Alzheimer's disease, unspecified (CODE) 02/09/2024 04/07/2024 Type 2 diabetes mellitus wit h diabetic chronic kidney disease 11/13/2022 02/09/2024 Malignant neoplasm of uterus 11/04/2019 09/29/2024 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 documented as of this encounter (statuses as of 10/22/2024) Immunizations Name Administration Dates Next Due COVID-19 mRNA, LNP-s, No Pre serve, 2-Dose Series ([email or web address]) 05/01/2021 COVID-19, MRNA-LNP, PF, 30 M CG/0.3 mL, 12 YRS AND ABOVE, IM ([employer]) 07/18/2023 Pneumococcal Conjugate Vacci ne, 20-valent ([id number]) 04/29/2023 Seasonal Influenza Vac., MDV , IM, [...] encounter Miscellaneous Notes * Telephone Encounter - Cony Dave OSA [...] for a Call Back Pt can at [phone] * Telephone Encounter - David Harry OSA - 10/22/2024 3:24 PM EST Reason for patient's call: Pt called back in to speak with nurse, Call dropped when being transferred again. * Telephone Encounter - Angelique Mcgovern OSA - 10/22/2024 3:21 PM EST Transferred pt over and the call dropped talked Gladis and she sated her export sales manager is work on itand I am going to call pt back and rely the message When I called I got her voicemail and it was full could not leave a message Thanks * Telephone Encounter - Anthony Canas LPN - 10/22/2024 3:18 PM EST Call dropped before transferred. After reviewing chart, multiple TE's on same issues and PCP and leather case finisher is managing concern inother TE's. * Telephone Encounter - Jesusita Soler OSA - 10/22/2024 3:08 PM EST Reason for patient's call: PT calling back-patch not working oxycodone works much better for PT. She would like to speak to a nurse. Caller was transferred to [place] at the nurse line. FYI-PT states sisters daughter (whom she used to live with-does not now) is addicted to Oxycodone. FYI documented in this encounter Plan of Treatment Upcoming Encounters Date Type Department Care Team (Late st Contact Info) Description 11/04/2024 10:00 AM EST Office Visit Audiology [facility] 132 [facility] [place] [address] Kaitlin Mcintyre Au.D. 132 [facility] [place] [address] 12/08/2024 10:00 AM EDT Office Visit Cardiology, [facility] [address] [facility] [place] [address] Selena Villanueva CRNP 400 [facility] [place] [address] 01/19/2025 11:40 AM EDT Office Visit Family Medicine [address] [phone] Kristie Franks MD [address] [place] [address] [place] Jaramillo [address] 01/25/2025 3:40 PM EDT Office Visit Neurology [facility] [address] Otilio Bee MD [address] [place] [address] 03/16/2025 1:00 PM EDT Office Visit Family Medicine [address] [phone] Kristie Franks MD [address] [place] [address] B[place] Jaramillo [address] Scheduled Procedures Name Priority Associated Diagnoses Date/Ti [...] 02/09/2024, 03/0 04/2023 CKD HGB USE SMARTSET 32171 02/08/202502/08, 01/26/2021, 01/20/2021, Additional history exists GFR 03/29/2025 09/29/2024, 06/0 11/2023, 04/29/2023, Additional history exists HbA1c 03/29/2025 09/29/2024, 06/0 11/2023, 04/29/2023, Additional history exists Depression Monitoring 04/12/2025 04/12/2024 O2 ASSESSMENT COMPLETED IN PAST YEAR FOR COPD 07/28/2025 07/28/2024 CKD PHOS USE SMARTSET 87579 09/29/2025 09/29/2024, 0 10/05/1997 Diabetic Foot Exam [...] filedocumented as of this encounter Care Teams Appeals Writer Relationship Specialty Start Date End Date Kristie Franks MD [address] [place] [address] B[place]L Jaramillo [phone] PCP - General Family Medicine 11/18/22 documented as of this encounter
--- OUTSIDE RECORDS SUMMARY | 2024-12-06 20:54 | External Medical Summary | Summary of Care ---
Author Name Unknown Organization [facility] Address [address] [place] [address] Phone [phone] Care Team Providers Care Sediment Remediation Consultant Name Role Phone Kristie Franks MD Primary Care Prov ider Reason for Visit * Reason Onset Date Comments Advice 10/22/2024 Encounter Details Date Type Department Care Team (Late st Contact Info) Description 10/22/2024 Telephone Family Medicine [address] [phone] Kristie Franks MD [address] [place] [address] [place] [address] Advice Allergies Active Allergy Reactions Criticality [...] kidney disease, unspecified CKD stage, unspecified whether manager intermediate insulin use (HCC) Test once Daily Dx [...] mRNA, LNP-s, No Pre serve, 2-Dose Series ([employer]) 05/01/2021 COVID-19, MRNA-LNP, PF, 30 M CG/0.3 mL, 12 YRS AND ABOVE, IM ([employer]) 07/18/2023 Pneumococcal Conjugate Vacci ne, 20-valent ([id number]) 04/29/2023 Seasonal Influenza Vac., MDV , IM, [...] for a Call Back Pt can at [phone] * Telephone Encounter - David Harry OSA - 10/22/2024 3:24 PM EST Reason for patient's call: Pt called back in to speak with nurse, Call dropped when being transferred again. * Telephone Encounter - Angelique Mcgovern OSA - 10/22/2024 3:21 PM EST Transferred pt over and the call dropped talked Gladis and she sated her dialysis clinical manager is work on itand I am going to call pt back and rely the message When I called I got her voicemail and it was full could not leave a message Thanks * Telephone Encounter - Anthony Canas LPN - 10/22/2024 3:18 PM EST Call dropped before transferred. After reviewing chart, multiple TE's on same issues and PCP and nurse case management is managing concern inother TE's. * Telephone Encounter - Jesusita Soler OSA - 10/22/2024 3:08 PM EST Reason for patient's call: PT calling back-patch not working oxycodone works much better for PT. She would like to speak to a nurse. Caller was transferred to [place] at the nurse line. FYI-PT states sisters daughter (whom she used to live with-does not now) is addicted to Oxycodone. FYI documented in this encounter Plan of Treatment Upcoming Encounters Date Type Department Care Team (Late st Contact Info) Description 11/04/2024 10:00 AM EST Office Visit Audiology [facility] 132 [facility] [place] [address] Kaitlin Mcintyre Au.D. 132 [facility] [place] [address] 12/08/2024 10:00 AM EDT Office Visit Cardiology, [facility] [address] [facility] [place] [address] Selena Villanueva CRNP 400 [facility] [place] [address] 01/19/2025 11:40 AM EDT Office Visit Family Medicine [address] [phone] Kristie Franks MD [address] [place] [address] [place] Jaram[place] [address] 01/25/2025 3:40 PM EDT Office Visit Neurology [facility] [address] Otilio Bee MD [address] [place] [address] 03/16/2025 1:00 PM EDT Office Visit Family Medicine [address] [phone] Kristie Franks MD [address] [place] [address] [place] Jaramillo [address] Scheduled Procedures Name Priority Associated Diagnoses Date/Ti [...] 02/09/2024, 03/0 04/2023 CKD HGB USE SMARTSET 47015 02/08/202502/08, 01/26/2021, 01/20/2021, Additional history exists GFR 03/29/2025 09/29/2024, 06/0 11/2023, 04/29/2023, Additional history exists HbA1c 03/29/2025 09/29/2024, 06/0 11/2023, 04/29/2023, Additional history exists Depression Monitoring 04/12/2025 04/12/2024 O2 ASSESSMENT COMPLETED IN PAST YEAR FOR COPD 07/28/2025 07/28/2024 CKD PHOS USE SMARTSET 87669 09/29/2025 09/29/2024, 0 10/05/1997 Diabetic Foot Exam [...] filedocumented as of this encounter Care Teams Sediment Remediation Consultant Relationship Specialty Start Date End Date Kristie Franks MD [address] [place] [address] B[place] Jaramillo [phone] PCP - General Family Medicine 11/18/22 documented as of this encounter
--- OUTSIDE RECORDS SUMMARY | 2024-12-06 20:54 | External Medical Summary | Summary of Care ---
Author Name Unknown Organization [facility] Address [address] [place] [address] Phone [phone] Care Team Providers Care Resin Filterer Name Role Phone Kristie Franks MD Primary Care Prov ider Reason for Visit * Reason Onset Date Comments Advice 10/22/2024 Encounter Details Date Type Department Care Team (Late st Contact Info) Description 10/22/2024 Telephone Family Medicine [address] [phone] Kristie Franks MD [address] [place] [address] [place] [address] Advice Allergies Active Allergy Reactions Criticality [...] kidney disease, unspecified CKD stage, unspecified whether mechanical applications engineer insulin use (HCC) Test once Daily Dx [...] mRNA, LNP-s, No Pre serve, 2-Dose Series ([employer]) 05/01/2021 COVID-19, MRNA-LNP, PF, 30 M CG/0.3 mL, 12 YRS AND ABOVE, IM ([employer]) 07/18/2023 Pneumococcal Conjugate Vacci ne, 20-valent ([id number]) 04/29/2023 Seasonal Influenza Vac., MDV , IM, [...] for a Call Back Pt can at [phone] * Telephone Encounter - David Harry OSA - 10/22/2024 3:24 PM EST Reason for patient's call: Pt called back in to speak with nurse, Call dropped when being transferred again. * Telephone Encounter - Angelique Mcgovern OSA - 10/22/2024 3:21 PM EST Transferred pt over and the call dropped talked Gladis and she sated her installation manager is work on itand I am going to call pt back and rely the message When I called I got her voicemail and it was full could not leave a message Thanks * Telephone Encounter - Anthony Canas LPN - 10/22/2024 3:18 PM EST Call dropped before transferred. After reviewing chart, multiple TE's on same issues and PCP and rn case manager is managing concern inother TE's. * Telephone Encounter - Jesusita Soler OSA - 10/22/2024 3:08 PM EST Reason for patient's call: PT calling back-patch not working oxycodone works much better for PT. She would like to speak to a nurse. Caller was transferred to [place] at the nurse line. FYI-PT states sisters daughter (whom she used to live with-does not now) is addicted to Oxycodone. FYI documented in this encounter Plan of Treatment Upcoming Encounters Date Type Department Care Team (Late st Contact Info) Description 11/04/2024 10:00 AM EST Office Visit Audiology [facility] 132 [facility] [place] [address] Kaitlin Mcintyre Au.D. 132 [facility] [place] [address] 12/08/2024 10:00 AM EDT Office Visit Cardiology, [facility] [address] [facility] [place] [address] Selena Villanueva CRNP 400 [facility] [place] [address] 01/19/2025 11:40 AM EDT Office Visit Family Medicine [address] [phone] Kristie Franks MD [address] [place] [address] [place] Jaram[place] [address] 01/25/2025 3:40 PM EDT Office Visit Neurology [facility] 200 [facility] [address] Otilio Bee MD [address] [place] [address] 03/16/2025 1:00 PM EDT Office Visit Family Medicine [address] [phone] Kristie Frnaks MD [address] [place] [address] [place] Jaram[place] [address] Scheduled Procedures Name Priority Associated Diagnoses Date/Ti [...] 02/09/2024, 03/0 04/2023 CKD HGB USE SMARTSET 47157 02/08/202502/08, 01/26/2021, 01/20/2021, Additional history exists GFR 03/29/2025 09/29/2024, 06/0 11/2023, 04/29/2023, Additional history exists HbA1c 03/29/2025 09/29/2024, 06/0 11/2023, 04/29/2023, Additional history exists Depression Monitoring 04/12/2025 04/12/2024 O2 ASSESSMENT COMPLETED IN PAST YEAR FOR COPD 07/28/2025 07/28/2024 CKD PHOS USE SMARTSET 59282 09/29/2025 09/29/2024, 0 10/05/1997 Diabetic Foot Exam [...] filedocumented as of this encounter Care Teams Resin Filterer Relationship Specialty Start Date End Date Kristie Franks MD [address] [place] [address] BERYL Jaramillo [phone] PCP - General Family Medicine 11/18/22 documented as of this encounter
--- OUTSIDE RECORDS SUMMARY | 2024-12-06 20:54 | External Medical Summary | Summary of Care ---
Author Name Unknown Organization [facility] Address [address] [place] [address] Phone [phone] Care Team Providers Care Museum Docent Name Role Phone Kristie Franks MD Primary Care Prov ider Reason for Visit * Reason Onset Date Comments Advice 10/22/2024 Encounter Details Date Type Department Care Team (Late st Contact Info) Description 10/22/2024 Telephone Family Medicine [address] [phone] Kristie Franks MD [address] [place] [address] [place] [address] Advice Allergies Active Allergy Reactions Criticality [...] kidney disease, unspecified CKD stage, unspecified whether roasterman insulin use (HCC) Test once Daily Dx [...] mRNA, LNP-s, No Pre serve, 2-Dose Series ([employer]) 05/01/2021 COVID-19, MRNA-LNP, PF, 30 M CG/0.3 mL, 12 YRS AND ABOVE, IM ([employer]) 07/18/2023 Pneumococcal Conjugate Vacci ne, 20-valent ([id number]) 04/29/2023 Seasonal Influenza Vac., MDV , IM, [...] for a Call Back Pt can at [phone] * Telephone Encounter - David Harry OSA - 10/22/2024 3:24 PM EST Reason for patient's call: Pt called back in to speak with nurse, Call dropped when being transferred again. * Telephone Encounter - Angelique Mcgovern OSA - 10/22/2024 3:21 PM EST Transferred pt over and the call dropped talked Gladis and she sated her media production manager is work on itand I am going to call pt back and rely the message When I called I got her voicemail and it was full could not leave a message Thanks * Telephone Encounter - Anthony Canas LPN - 10/22/2024 3:18 PM EST Call dropped before transferred. After reviewing chart, multiple TE's on same issues and PCP and corrections caseworker is managing concern inother TE's. * Telephone Encounter - Jesusita Soler OSA - 10/22/2024 3:08 PM EST Reason for patient's call: PT calling back-patch not working oxycodone works much better for PT. She would like to speak to a nurse. Caller was transferred to [place] at the nurse line. FYI-PT states sisters daughter (whom she used to live with-does not now) is addicted to Oxycodone. FYI documented in this encounter Plan of Treatment Upcoming Encounters Date Type Department Care Team (Late st Contact Info) Description 11/04/2024 10:00 AM EST Office Visit Audiology [facility] 132 [facility] [place] [address] Kaitlin Mcintyre Au.D. 132 [facility] [place] [address] 12/08/2024 10:00 AM EDT Office Visit Cardiology, [facility] 132 [facility] [place] [address] Selena Villanueva CRNP [address] [place] [address] [place] [address] 01/19/2025 11:40 AM EDT Office Visit Family Medicine [address] [place] [phone] Kristie Franks MD [address] [place] [address] [place] Jaram[place] [address] 01/25/2025 3:40 PM EDT Office Visit Neurology [facility] 200 [facility] [address] Otilio Bee MD [address] [facility] [place] [address] 03/16/2025 1:00 PM EDT Office Visit Family Medicine [address] [place] [phone] Kristie Franks MD [address] [place] [address] [place] Jaramillo [address] Scheduled Procedures Name Priority Associated Diagnoses Date/Ti [...] 02/09/2024, 03/0 04/2023 CKD HGB USE SMARTSET 96867 02/08/202502/08, 01/26/2021, 01/20/2021, Additional history exists GFR 03/29/2025 09/29/2024, 06/0 11/2023, 04/29/2023, Additional history exists HbA1c 03/29/2025 09/29/2024, 06/0 11/2023, 04/29/2023, Additional history exists Depression Monitoring 04/12/2025 04/12/2024 O2 ASSESSMENT COMPLETED IN PAST YEAR FOR COPD 07/28/2025 07/28/2024 CKD PHOS USE SMARTSET 11816 09/29/2025 09/29/2024, 0 10/05/1997 Diabetic Foot Exam [...] filedocumented as of this encounter Care Teams Museum Docent Relationship Specialty Start Date End Date Kristie Franks MD [address] [place] [address] B[place] Jaramillo [phone] PCP - General Family Medicine 11/18/22 documented as of this encounter
--- OUTSIDE RECORDS SUMMARY | 2024-12-06 20:54 | External Medical Summary | Summary of Care ---
Author Name Unknown Organization [facility] Address [address] [place] [address] Phone [phone] Care Team Providers Care Propulsion Generator Repairer Name Role Phone Kristie Franks MD Primary Care Prov ider Reason for Visit * Reason Onset Date Comments Medication Question 10/08/2024 Encounter Details Date Type Department Care Team (Late st Contact Info) Description 10/08/2024 Telephone Family Medicine [address] [phone] Kristie Franks MD [address] [place] [address] [place] [address] Medication Question Allergies Active Allergy Reactions Criticality Noted Date [...] (PFIZER-Comirnaty) 07/18/2023 Pneumococcal Conjugate Vacci ne, 20-valent ([id number]) 04/29/2023 Seasonal Influenza Vac., MDV , IM, [...] encounter Miscellaneous Notes * Telephone Encounter - Kat Blancas PHARM Tech - 10/08/2024 1:46 PM EST Patient calling in regarding a medication last prescribed by PCP office, transferring caller to Medication Refill Line for further assistance. Thank You, Kat Blancas [facility] Manager Inventory Management III [facility] ([facility]) 10/08/2024, 1:46 PM documented in this encounter Plan of Treatment Upcoming Encounters Date Type Department Care Team (Late st Contact Info) Description 11/04/2024 10:00 AM EST Office Visit Audiology [facility] [address] [address] Kaitlin Mcintyre Au.D. [address] [place] [address] 12/08/2024 10:00 AM EDT Office Visit Cardiology, [facility] [address] [address] Selena Villanueva CRNP [address] [place] [address] 01/19/2025 11:40 AM EDT Office Visit Family [address] [phone] Kristie Franks MD [address] [place] [address] [place] [address] 01/25/2025 3:40 PM EDT Office Visit Neurology [facility] [address] [place] [address] Otilio Bee MD [address] [place] [address] 03/16/2025 1:00 PM EDT Office Visit [address] [phone] Kristie Franks MD [address] [place] [address] [place] [id number] Scheduled Procedures Name Priority Associated Diagnoses Date/Ti [...] 02/09/2024, 03/0 04/2023 CKD HGB USE SMARTSET 94485 02/08/202502/08, 01/26/2021, 01/20/2021, Additional history exists GFR 03/29/2025 09/29/2024, 06/0 11/2023, 04/29/2023, Additional history exists HbA1c 03/29/2025 09/29/2024, 06/0 11/2023, 04/29/2023, Additional history exists Depression Monitoring 04/12/2025 04/12/2024 O2 ASSESSMENT COMPLETED IN PAST YEAR FOR COPD 07/28/2025 07/28/2024 CKD PHOS USE SMARTSET 28344 09/29/2025 09/29/2024, 0 10/05/1997 Diabetic Foot Exam [...] filedocumented as of this encounter Care Teams Propulsion Generator Repairer Relationship Specialty Start Date End Date Kristie Franks MD [address] [place] [address] [place] [address] PCP - General Family Medicine 11/18/22 documented as of this encounter
--- OUTSIDE RECORDS SUMMARY | 2024-12-06 20:54 | External Medical Summary | Summary of Care ---
Author Name Unknown Organization [facility] Address [address] [place] [address] Phone [phone] Care Team Providers Care Moving Worker Name Role Phone Kristie Franks MD Primary Care Prov ider Reason for Visit * Reason Onset Date Comments Information 10/20/2024 Encounter Details Date Type Department Care Team (Late st Contact Info) Description 10/20/2024 Telephone Family Medicine [address] [phone] Kristie Franks MD [address] [place] [address] [place] [address] Information Allergies Active Allergy Reactions Criticality Noted Date [...] kidney disease, unspecified CKD stage, unspecified whether intermodal customer service insulin use (HCC) Test once Daily Dx [...] (PFIZER-Comirnaty) 07/18/2023 Pneumococcal Conjugate Vacci ne, 20-valent ([id number]) 04/29/2023 Seasonal Influenza Vac., MDV , IM, [...] Encounter - Elizabeth Yap RN - 10/25/2024 12:09 PM EST See 10/22 enc. Pt needs an appt with Dr Ruperto Harvey to [facility] * Telephone Encounter - Kristie Franks MD - 10/22/2024 9:09 AM EST Please call to check in on patient. Oxycodone was discontinued last appt and replaced with Fentanyl patch for better pain management (and lower risk someone else might take her meds). I do NOT recommend increasing trazodone to 300mg. She can take up to 200mg at night ONLY. Please update Adult Protective Services - I have concerns that patient moved out of the house with sister Jasmina who kept great track of her medications, and moved in with her daughter who Jasmina reported was taking her oxycodone. Now patient/daughter are asking for more oxycodone. Concern daughteris manipulating her to try to get drugs/ is patient in a safe situation? * Telephone Encounter - Carol Tinoco CMA - 10/20/2024 5:22 PM EST See other encounter where pt reports to taking 3 Trazadone every night * Telephone Encounter - Elizabeth Yap RN - 10/20/2024 4:20 PM EST See below. FYI * Telephone Encounter - Lucretia Jensen CPhT - 10/20/2024 3:59 PM EST Pt calling stating stated she moved out of her sister Jasmina and sister refused to give back back Pt her medication for oxyCODONE-Acetaminophen 10-325 MG Oral Tablet Pt stated sister has 9 tablets left , Pt wanted she just want doctor Wes Hickey to know the issue Pt is having with sister Jasmina Merlos. Caller can be reached [phone] for any question Pt sated . Thank you, Lucretia Jensen CPhT Ct Tech II [facility] ([facility]) (Formerly Telepharmacy) 10/20/2024,4:03 PM documented in this encounter Plan of Treatment Upcoming Encounters Date Type Department Care Team (Late st Contact Info) Description 11/04/2024 10:00 AM EST Office Visit Audiology [facility] 132 [facility] [address] [address] Kaitlin Mcintyre Au.D. [address] [address] 12/08/2024 10:00 AM EDT Office Visit Cardiology, [facility] 132 [facility] [place] [address] Selena Villanueva CRNP [address] [place] [address] 01/19/2025 11:40 AM EDT Office Visit Family [address] [phone] Kristie Franks MD [address] [place] [address] [place] [address] 01/25/2025 3:40 PM EDT Office Visit Neurology [facility] [address] [place] [address] Otilio Bee MD [address] [place] [address] 03/16/2025 1:00 PM EDT Office Visit [address] [phone] Kristie Franks MD [address] [place] [address] [place] [address] Scheduled Procedures Name Priority Associated Diagnoses Date/Ti [...] 02/09/2024, 03/0 04/2023 CKD HGB USE SMARTSET 90799 02/08/202502/08, 01/26/2021, 01/20/2021, Additional history exists GFR 03/29/2025 09/29/2024, 06/0 11/2023, 04/29/2023, Additional history exists HbA1c 03/29/2025 09/29/2024, 06/0 11/2023, 04/29/2023, Additional history exists Depression Monitoring 04/12/2025 04/12/2024 O2 ASSESSMENT COMPLETED IN PAST YEAR FOR COPD 07/28/2025 07/28/2024 CKD PHOS USE SMARTSET 56310 09/29/2025 09/29/2024, 0 10/05/1997 Diabetic Foot Exam [...] filedocumented as of this encounter Care Teams Moving Worker Relationship Specialty Start Date End Date Kristie Franks MD [address] [place] [address] [place] [phone] PCP - General Family Medicine 11/18/22 documented as of this encounter
--- OUTSIDE RECORDS SUMMARY | 2024-12-06 20:54 | External Medical Summary | Summary of Care ---
Author Name Unknown Organization [facility] Address [address] [place] [address] Phone [phone] Care Team Providers Care Dean Of Girls Name Role Phone Kristie Franks MD Primary Care Prov ider Reason for Visit * Reason Onset Date Comments Advice 10/22/2024 Encounter Details Date Type Department Care Team (Late st Contact Info) Description 10/22/2024 Telephone Family Medicine [address] [phone] Kristie Franks MD [address] [place] [address] [place] [address] Advice Allergies Active Allergy Reactions Criticality [...] mRNA, LNP-s, No Pre serve, 2-Dose Series (Precyse) 05/01/2021 COVID-19, MRNA-LNP, PF, 30 M CG/0.3 mL, 12 YRS AND ABOVE, IM ([facility]) 07/18/2023 Pneumococcal Conjugate Vacci ne, 20-valent ([id number]) 04/29/2023 Seasonal Influenza Vac., MDV , IM, [...] for a Call Back Pt can at [phone] * Telephone Encounter - David Harry OSA - 10/22/2024 3:24 PM EST Reason for patient's call: Pt called back in to speak with nurse, Call dropped when being transferred again. * Telephone Encounter - Angelique Mcgovern OSA - 10/22/2024 3:21 PM EST Transferred pt over and the call dropped talked Gladis and she sated her bilingual manager is work on itand I am going to call pt back and rely the message When I called I got her voicemail and it was full could not leave a message Thanks * Telephone Encounter - Anthony Canas LPN - 10/22/2024 3:18 PM EST Call dropped before transferred. After reviewing chart, multiple TE's on same issues and PCP and case management associate is managing concern inother TE's. * Telephone Encounter - Jesusita Soler OSA - 10/22/2024 3:08 PM EST Reason for patient's call: PT calling back-patch not working oxycodone works much better for PT. She would like to speak to a nurse. Caller was transferred to [place] at the nurse line. FYI-PT states sisters daughter (whom she used to live with-does not now) is addicted to Oxycodone. FYI documented in this encounter Plan of Treatment Upcoming Encounters Date Type Department Care Team (Late st Contact Info) Description 11/04/2024 10:00 AM EST Office Visit Audiology [facility] 132 [facility] [place] [address] Kaitlin Mcintyre Au.D. 132 [facility] [place] [address] 12/08/2024 10:00 AM EDT Office Visit Cardiology, [facility] [address] [facility] [place] [address] Selena Villanueva CRNP [address] [facility] [place] [address] 01/19/2025 11:40 AM EDT Office Visit Family Medicine [address] [phone] Kristie Franks MD [address] [place] [address] [place] [address] 01/25/2025 3:40 PM EDT Office Visit [facility] [address] Otilio Bee MD [address] [place] [address] 03/16/2025 1:00 PM EDT Office Visit Family Medicine [address] [phone] Kristie Franks MD [address] [place] [address] [place] [address] Scheduled Procedures Name Priority Associated Diagnoses Date/Ti [...] 02/09/2024, 03/0 04/2023 CKD HGB USE SMARTSET 73830 02/08/202502/08, 01/26/2021, 01/20/2021, Additional history exists GFR 03/29/2025 09/29/2024, 06/0 11/2023, 04/29/2023, Additional history exists HbA1c 03/29/2025 09/29/2024, 06/0 11/2023, 04/29/2023, Additional history exists Depression Monitoring 04/12/2025 04/12/2024 O2 ASSESSMENT COMPLETED IN PAST YEAR FOR COPD 07/28/2025 07/28/2024 CKD PHOS USE SMARTSET 10766 09/29/2025 09/29/2024, 0 10/05/1997 Diabetic Foot Exam [...] filedocumented as of this encounter Care Teams Dean Of Girls Relationship Specialty Start Date End Date Kristie Franks MD [address] [place] [address] [place] [phone] PCP - General Family Medicine 11/18/22 documented as of this encounter
--- OUTSIDE RECORDS SUMMARY | 2024-12-06 20:54 | External Medical Summary | Summary of Care ---
Author Name Unknown Organization [facility] Address [address] [place] [address] Phone [phone] Care Team Providers Care Relay Technician Name Role Phone Romeo Franks MD Primary Care Prov ider Reason for Referral * Social Care (Within 10 days (routine)) - Authorized Specialty Diagnoses / Procedures Referred By Toni t Referred To Contact Needle Maker Diagnoses Generalized osteoarthritis Romeo Franks MD [address] [place] [address] [place]am[place] [phone] Phone: tel: fax: Referral ID Status Reason Start Date Expiration Date Visits Requested Visits Authorized [id number] Authorized Specialty Services Required 09/29/[phone] Question Answer Referral Priority Within 10 days (routine) Where should this appointment be scheduled? [facility] Role Customer Support Coordinator Customer Support Coordinator Referral Reason Frail Elderly Comments Please assist patient with Meals on Wheels or similar Is patient being transitioned from [facility] to Complex Case Management? No Reason for Visit * Reason Comments Physical-Exam Encounter Details Date Type Department Care Team (Latest Contact Info) Description 09/29/2024 8:40 AM EST Office Visit Family Medicine [address] [place] [phone] Romeo Franks MD [address] [place] [address] [place] [phone] Type 2 diabetes mellitus with hemoglobin A1c goal of less than 7.0% ([facility])*; Parkinsonism, unspecified Parkinsonism type ([facility]); Bipolar affective disorder, remission status unspecified ([facility]); Current moderate episode of major depressive disorder, unspecified whether recurrent ([facility]); Idiopathic cardiomyopathy ([facility]); Type 2 diabetes mellitus with diabetic chronic kidney disease, unspecified CKD stage, unspecified whether jail insulin use ([facility]); Type 2 diabetes mellitus with stage 3a chronic kidney disease, without long-term current use of insulin ([facility]); Neuroleptic-induced parkinsonism ([facility]); HTN, goal below 140/90; Hyperlipidemia with target LDL less than 70; Pulmonary emphysema, unspecified emphysema type ([facility]); Restless legs syndrome; GENERAL OSTEOARTHROSIS; Acute cough Allergies Active Allergy Reactions Criticality Noted Date [...] kidney disease, unspecified CKD stage, unspecified whether extermination supervisor insulin use ([facility]) Test once Daily Dx E11.9 100 Each 3 01/21/20 Active OLANZapine 10 MG Oral Tablet (zyPREXA) TAKE ONE TABLET BY MOUTH DAILY 45 Tablet 07/28/20 23 Active Additional Information Patient not taking.Reported on 09/07/2024 busPIRone HCl 10 MG Oral Tablet (Buspar) Take 1 Tablet by mouth in the morning and 1 Tablet before bedtime. Active Clopidogrel Bisulfate 75 MG Oral Tablet (pLAVix)Indications :Idiopathic cardiomyopathy ([facility]) Take 1 Tablet by mouth in the [...] call your PCP. 238 g 1 07/05/20 24 Active Additional Information Patient not taking.Reported on [...] 25 Active Benzonatate 100 MG Oral Capsule (Tescamilla Sutton)Indications: Acute cough Take 1 Capsule by mouth 3 times a day as needed for Cough. Do not cut, crush, or chew. 50 Capsule 1 09/29/19 25 Active Pramipexole Dihydrochloride 0.5 MG Oral Tablet (Mirapex) Take 1 Tablet by mouth at bedtime. 90 Tablet 1 08/02/20 24 025 Discontin ued(Refil l) documented as of [...] (PFIZER-Comirnat) 07/18/2023 Pneumococcal Conjugate Vacci ne, 20-valent ([id number]) 04/29/2023 Seasonal Influenza Vac., MDV , IM, [...] Sign Reading Time Taken Comments Blood Pressure 132/70 09/29/2024 8:27 AM EST Pulse 68 09/29/2024 8:27 AM EST Temperature 35.6 °C (96 °F) 09/29/2024 8:27 AM EST Respiratory Rate 16 09/29/2024 8:27 AM EST Oxygen Saturation - - Inhaled Oxygen Concentration - - Weight 85.3 kg (188 lb) 09/29/2024 8:27 AM EST Height 165.1 cm (5' 5") 09/29/2024 8:27 AM EST Body Mass Index 31.28 09/29/2024 8:27 AM EST documented in this encounter Progress Notes * Ruperto Harvey, Romeo Contreras MD - 09/29/2024 8:51 AM EST Images from the original note were not included. Subjective Chante Harvey is a 74 year old female that presents for Physical-Exam History of Present Illness The patient, with a history of Parkinson's disease and chronic pain, presents with a cough that hasbeen ongoing for approximately three days. The cough is described as dry, with no productive sputum, and is particularly severe at night. The patient denies any chest discomfort or shortness of breath, indicating that the cough is primarily located in the throat. The patient also reported a sore throat a few days prior to the onset of the cough. In addition to the cough, the patient reports a decreased appetite and difficulty eating. This has been an ongoing issue, with the patient expressing a lack of motivation to prepare meals. The patient's sister, who lives with her, confirms this and expresses concern about the patient's nutritional intake. The patient's sister also brings up concerns about the patient's pain management. The patient is currently on pain medication, which is kept locked up by the sister due to previous instances of others asking for the patient's medication. The patient's tremors, likely due to Parkinson's disease, arenoted to be better than previous visits, with no recent changes in medication. 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 The patient's sister and the doctor express concerns about the safety of the patient driving, given her health conditions and the medications she is on. Objective Vitals: 09/29/24 0827 Temp: 96 °F (35.6 °C) Pulse: 68 Resp: 16 BP: 132/70 BMI: 31.28 Physical Exam HEENT: Throat normal. CHEST: Wheezing upon auscultation. CARDIOVASCULAR: Heart sounds normal. NEUROLOGICAL: Tremors improved. I have reviewed the following results: Results Assessment and Plan Assessment & Plan Upper Respiratory Infection Dry cough for 3 days, no chest pain or shortness of breath. Wheezing noted on exam. High prevalenceof influenza in the community. -Perform nasal swab for influenza testing. -Prescribe cough suppressant. -If influenza test is positive, prescribe Tamiflu. If negative, consider antibiotic for possible bacterial infection. Poor Nutrition Reduced appetite and inadequate food intake for an extended period. She is reluctant to prepare meals. -Refer to watch caser for meal delivery service setup. Chronic Pain Management Pain managed with controlled substances. Medications are kept locked and administered by sister. She has history of others asking for her pain medication. -Transition from oral pain medication to fentanyl patch for better control and reduced risk of misuse. -Perform routine urine drug screen. -Continue current pain management strategy with sister controlling medication access. Parkinson's Disease Tremors noted, but she reports they are not always present. No recent changes in neurologist's management. -No changes to current management plan. Driving Safety She expressed desire to regain driving privileges. History of blackouts and current use of pain medication pose safety concerns. -Advise against driving due to safety concerns related to health issues and medication use. -If she insists on driving, require clearance from neurologist and psychiatrist, and cessation of pain medication. Urinary incontinence. Persistent, uses incontinence pads for this. Medically necessary. Follow-up in 3 months to assess overall health status and effectiveness of interventions. Type 2 diabetes mellitus with hemoglobin A1c goal of less than 7.0% ([facility]) (Primary) - DIABETES FOOT EXAM - COMPREHENSIVE METABOLIC PANEL; Future; Expected date: 09/29/2024 - HEMOGLOBIN A1C; Future; Expected date: 09/29/2024 Parkinsonism, unspecified Parkinsonism type (HCC) Bipolar affective disorder, remission status unspecified (HCC) Current moderate episode of major depressive disorder, unspecified whether recurrent (HCC) Idiopathic cardiomyopathy (HCC) - COMPREHENSIVE METABOLIC PANEL; Future; Expected date: 09/29/2024 Type 2 diabetes mellitus with diabetic chronic kidney disease, unspecified CKD stage, unspecified whether extermination supervisor insulin use (HCC) Type 2 diabetes mellitus with stage 3a chronic kidney disease, without long-term current use of insulin (HCC) - COMPREHENSIVE METABOLIC PANEL; Future; Expected date: 09/29/2024 - PHOSPHORUS; Future; Expected date: 09/29/2024 Neuroleptic-induced parkinsonism (HCC) - COMPREHENSIVE METABOLIC PANEL; Future; Expected date: 09/29/2024 HTN, goal below 140/90 Hyperlipidemia with target LDL less than 70 - COMPREHENSIVE METABOLIC PANEL; Future; Expected date: 09/29/2024 - LIPID PANEL WITH DIRECT LDL IF TG IS HIGH; Future; Expected date: 09/29/2024 Pulmonary emphysema, unspecified emphysema type (HCC) Restless legs syndrome - COMPREHENSIVE METABOLIC PANEL; Future; Expected date: 09/29/2024 GENERAL OSTEOARTHROSIS - PAIN MANAGEMENT DRUG PANEL, URINE W/ INTERPRETATION; Future; Expected date: 09/29/2024 - POPULATION HEALTH REFERRAL OP - fentaNYL 25 MCG/HR Transdermal Patch 72 Hour (Duragesic); Place 1 Patch over 72 hours topically on the skin every 3 days. Apply for pain Acute cough - INFLUENZA A/B RSV SARS-COV2,PCR; Future; Expected date: 09/29/2024 - Benzonatate 100 MG Oral Capsule (Tescamilla Sutton); Take 1 Capsule by mouth 3 times a day as needed for Cough. Do not cut, crush, or chew. - INFLUENZA A/B RSV SARS-COV2,PCR Wrap-Up Follow Up: Return in about 3 months (around 12/28/2024) for Return with Physician. | For: Return with Physician Time: I spent a total of 30-39 minutes (exact time 38 mins) on the date of service in preparation, delivery, and documentation of the care provided to Chante Harvey excluding any time spent in the performance of separately billed services. Text in this note was generated using an ambient documentation service. I discussed the use of a device to record and summarize our discussion today. All persons present during the encounter consented to its use. * Elizabeth Yap RN - 09/29/2024 8:38 AM EST Socks and Shoes Removed for Annual Diabetic Foot Screening RIGHT FOOT: No Reddened, Cracking, Or Open Areas Noted. RIGHT Dorsalis Pedis Pulse: Palpable RIGHT Posterior Tibial Pulse: Palpable RIGHT Monofilament:Patient reports feeling monofilament pressure on plantar surface of foot LEFT FOOT: No Reddened, Cracking or Open Areas Noted. LEFT Dorsalis Pedis Pulse: Palpable LEFT Posterior Tibial Pulse: Palpable LEFT Monofilament:Patient reports feeling monofilament pressure on plantar surface of foot documented in this encounter Nursing Notes * Elizabeth Yap RN - 09/29/2024 8:35 AM EST Pt here for a check up. Pt has been coughing a lot at night(dry) x 3 days Declines Covid Vaccine Pt states she needs a train driver Physical, but caregiver states she does not documented in this encounter Miscellaneous Notes * Addendum Note - Romeo Franks MD - 10/01/2024 10:25 AM EST Addended by: ROMEO GAGE on: 10/01/2024 10:25 AM Modules accepted: Orders documented in this encounter Plan of Treatment Upcoming Encounters Date Type Department Care Team (Late st Contact Info) Description 11/04/2024 10:00 AM EST Office Visit Audiology [facility] [address] [facility] [place] [address] Kaitlin Mcintyre Au.D. [address] [facility] [place] [address] 12/08/2024 10:00 AM EDT Office Visit Cardiology, [facility] [address] [place] [address] Selena Villanueva CRNP [address] [place] [id number] 01/19/2025 11:40 AM EDT Office Visit Family [address] [phone] Romeo Franks MD [address] [place] [address] [place] [phone] 01/25/2025 3:40 PM EDT Office Visit Neurology [facility] [address] [facility] [place] [facility] [place] [address] Otilio Bee MD [address] [place] [phone] 03/16/2025 1:00 PM EDT Office Visit Family Medicine [address] [phone] Romeo Franks MD [address] [place] [address] [place] Jaram[place] [phone] Scheduled Orders Name Type Priority Associated Diagnoses Orde r Schedule BASIC METABOLIC PANEL Lab Routine Type 2 diabetes mellitus with stage 3a chronic kidney disease, without long-term current use of insulin (HCC) Expected: 10/08/2024, Expires: 10/01/2025 Scheduled Procedures Name Priority Associated Diagnoses Date/Ti me COLONOSCOPY FLEXIBLE PROXIMA L DIAGNOSTIC Recall Special screening for malignant neoplasms, colon Scheduled Referrals Name Type Priority Associated Diagnoses Orde r Schedule POPULATION HEALTH REFERRAL OP Referral Within 10 days (routine) GENERAL OSTEOARTHROSIS Ordered: 09/29/2024 Health Maintenance Due Date Last Done Comments [...] 02/09/2024, 03/0 04/2023 CKD HGB USE SMARTSET 70671 02/08/202502/08, 01/26/2021, 01/20/2021, Additional history exists GFR 03/29/2025 09/29/2024, 06/0 11/2023, 04/29/2023, Additional history exists HbA1c 03/29/2025 09/29/2024, 06/0 11/2023, 04/29/2023, Additional history exists Depression Monitoring 04/12/2025 04/12/2024 O2 ASSESSMENT COMPLETED IN PAST YEAR FOR COPD 07/28/2025 07/28/2024 CKD PHOS USE SMARTSET 68206 09/29/2025 09/29/2024, 0 10/05/1997 Diabetic Foot Exam [...] Not on filedocumented as of this encounter Procedures Procedure Name Priority Date/Time Associated Diagnosis Comments INFLUENZA A/B RSV SARS-COV2,PCR Routine 09/29/2024 9:19 AM EST Acute cough documented in this encounter Results * (ABNORMAL) PAIN MANAGEMENT DRUG PANEL, URINE W/ INTERPRETATION (09/29/2024 10:34 AM EST) Pathologist [facility] Pain Management Interpretation Based on the medication information provided: The positive oxycodone screening result is CONSISTENT with oxycodone use. Confirmatory testing is available upon request. 10/06/2024 3:47 PM EST [facility] Comment:Changed Report: Prev iously reported on 09/30/2024 at 0953 EST. See Results History in [facility] for previous versions of the report. Amphetamines Screen, U Refer to confirmation results(A) Negative 10/06/2024 3:47 PM EST [facility] Benzodiazepines Screen, U Negative Negative 10/06/2024 3:47 PM EST [facility] Cannabinoids Screen, U Negative Negative 10/06/2024 3:47 PM EST [facility] Cocaine Metabolite Screen, U Negative Negative 10/06/2024 3:47 PM EST [facility] Fentanyl Screen, U Negative Negative 2024 3:47 PM EST [facility] Hydrocodone Screen, U Negative Negative 10/06/2024 3:47 PM EST [facility] Methadone Metabolite Screen, U Negative Negative 10/06/2024 3:47 PM EST [facility] Morphine/Codeine Screen, U Negative Negative 10/06/2024 3:47 PM EST [facility] Oxycodone Screen, U Positive(A) Negative 10/06/2024 3:47 PM EST [facility] Specimen Validity Interpretation Normal 10/06/2024 3:47 PM EST [facility] Creatinine, U 346 mg/dL 10/06/2024 3:47 PM EST [facility] Urine Non-blood Collection / Unknown 09/29/2024 10:34 AM EST 09/29/2024 10:34 AM EST Narrative [facility] - 10/06/2024 3:47 PM EST Cutoff Concentrations: Drug Level Amphetamines 500 ng/mL Benzodiazepines 100 ng/mL Cannabinoids 50 ng/mL Cocaine Metabolite 150 ng/mL Fentanyl 1 ng/mL Hydrocodone / Hydromorphone 300 ng/mL Methadone Metabolite 100 ng/mL Morphine / Codeine 300 ng/mL Oxycodone / Oxymorphone 100 ng/mL Screening results are presumptive and can only be used for medical purposes. Confirmatory testing is available upon request. Romeo Harvey MD LAB URINE ORDERABL ES Final Result [facility] [address] [place] [address] * PHOSPHORUS (09/29/2024 9:23 AM EST) Phosphorus 3.7 2.5 - 4.8 mg/dL 09/30/2024 12:12 AM EST [facility] Blood Venous blood specimen / Unknown Venipuncture / Unknown 09/29/2024 9:23 AM EST 09/29/2024 9:24 AM EST Romeo Harvey MD LAB BLOOD ORDERABL ES Final Result Performing Organization Address [facility] de Phone Number [facility] [address] [place] [address] * HEMOGLOBIN A1C (09/29/2024 9:23 AM EST) Hemoglobin A1C 5.4 4.0 - 5.6 % 09/29/2024 3:20 PM EST [facility] Comment:The use of HbA1c to monitor glycemic status is based on normal hemoglobin and HbA composition. This test should not be used in patients with abnormal hemoglobin that affects the half life of the red blood cell or the in vivo glycation rates. Estimated Average Glucose 108 <126 mg/dL 09/29/2024 3:20 PM EST [facility] Blood Venous blood specimen / Unknown Venipuncture / Unknown 09/29/2024 9:23 AM EST 09/29/2024 9:24 AM EST Romeo Harvey MD LAB BLOOD ORDERABL ES Final Result Performing Organization Address [facility] de Phone Number [facility] [address] [place] [address] * LIPID PANEL WITH DIRECT LDL IF TG IS HIGH (09/29/2024 9:23 AM EST) Triglycerides 89 <=174 mg/dL 09/30/2024 12:12 AM EST [facility] Comment: Triglyceride Reference Ranges (mg/dL): <150 Acceptable 150-174 Borderline high 175-499 High >=500 Very high Cholesterol 156 <200 mg/dL 09/30/2024 12:12 AM EST [facility] Comment: Total Cholesterol Reference Ranges (mg/dL): <200 Desirable 200-239 Borderline high >=240 High HDL Cholesterol 61 >49 mg/dL 12:12 AM EST [facility] Comment: HDL Cholesterol Reference Ranges (mg/dL): >=60 High (Desirable) <50 Low (Undesirable) For Females <40 Low (Undesirable) For Males Non-HDL Cholesterol 95 <=159 mg/dL 09/30/2024 12:12 AM EST [facility] Comment: Non-HDL Cholesterol Reference Range (mg/dL): <100 Target level for high risk ASCVD patient <130 Optimal for general population 130-159 Near optimal for general population 160-189 Borderline High 190-219 High >=220 Very High LDL Cholesterol 77 <=129 mg/dL 09/30/2024 12:12 AM EST [facility] Comment: LDL Cholesterol Reference Ranges (mg/dL): <70 Target level for high risk ASCVD patient <100 Optimal for general population 100-129 Near optimal for general population 130-159 Borderline high 160-189 High >=190 Very high Blood Venous blood specimen / Unknown Venipuncture / Unknown 09/29/2024 9:23 AM EST 09/29/2024 9:24 AM EST Romeo Harvey MD LAB BLOOD ORDERABL ES Final Result [facility] [address] [place] [address] * (ABNORMAL) COMPREHENSIVE METABOLIC PANEL (09/29/2024 9:23 AM EST) BUN 14 6 - 20 mg/dL 09/30/2024 12:12 AM EST [facility] CREATININE 1.2(H) 0.5 - 1.0 mg/dL 09/30/2024 12:12 AM EST [facility] EGFR 47(L) >=60 mL/min 09/30/2024 12:12 AM EST [facility] Comment:eGFR is calculated b ased on the CKD-EPI 2020 equation. SODIUM 138 135 - 146 mmol/L 09/30/2024 12:12 AM EST [facility] POTASSIUM 4.3 3.5 - 5.1 mmol/L 09/30/2024 12:12 AM EST [facility] CHLORIDE 101 98 - 107 mmol/L 09/30/2024 12:12 AM EST [facility] CO2 27 22 - 32 mmol/L 09/30/2024 12:12 AM EST [facility] ANION GAP 10 7 - 15 mmol/L 09/30/2024 12:12 AM EST [facility] GLUCOSE 91 70 - 120 mg/dL 09/30/2024 12:12 AM EST [facility] Albumin 4.3 3.8 - 5.0 g/dL 09/30/2024 12:12 AM EST [facility] AST 18 10 - 35 U/L 09/30/2024 12:12 AM EST [facility] Alkaline Phosphatase 71 35 - 130 U/L 09/30/2024 12:12 AM EST [facility] Bilirubin, Total 0.4 <=1.2 mg/dL 09/30/2024 12:12 AM EST [facility] CALCIUM 9.8 8.4 - 10.2 mg/dL 09/30/2024 12:12 AM EST [facility] Protein 6.3 6.0 - 8.3 g/dL 09/30/2024 12:12 AM EST [facility] ALT 15 10 - 35 U/L 09/30/2024 12:12 AM EST [facility] Blood Venous blood specimen / Unknown Venipuncture / Unknown 09/29/2024 9:23 AM EST 09/29/2024 9:24 AM EST Romeo Harvey MD LAB BLOOD ORDERABL ES Final Result [facility] [address] [place] [address] * INFLUENZA A/B RSV SARS-COV2,PCR (09/29/2024 9:19 AM EST) SARS-CoV-2 (COVID-19) Result Negative Negative 09/29/2024 2:05 PM EST [facility] Comment: No SARS-CoV2 Coronavirus RNA detected by PCR (amplified probe). This express test was developed and its performance characteristics determined by [facility]. It has not been cleared or approved by the U.S. Food and Drug Administration (FDA). FDA does not require this test to go thru premarket FDA review. This test is used for clinical purposes. It should not be regarded as investigational or for research. This laboratory is certified under the Clinical Laboratory Improvement Amendments (CLIA) as qualified to perform high complexity clinical laboratory testing. This test is a nucleic acid amplification test (NAAT), a reverse transcriptase polymerase chain reaction (RT-PCR) test, or a Centers for Disease Control- acceptable equivalent. The test is performed in a high complexity Clinical Laboratory Improvement Amendments-(CLIA) certified laboratory. The test is acceptable for SARS-CoV-2 diagnosis, surveillance, and travel within the [place] and to most countries. Please check with local testing authorities about requirements before travel. The validation of bronchial specimens, tracheal aspirates, and sputum for this assay was developed and performance characteristics determined by [facility] [employer]. The validation of alternate specimen types has not been cleared or approved by the U.S. Food and Drug Administration (FDA). It has been determined that such clearance is not necessary. Influenza A PCR Result Negative Negative 09/29/2024 2:05 PM EST [facility] Comment:No Influenza A RNA d etected by PCR (amplified probe) Influenza B PCR Result Negative Negative 09/29/2024 2:05 PM EST [facility] Comment:No Influenza B RNA d etected by PCR (amplified probe) RSV PCR Result Negative Negative 09/29/2024 2:05 PM EST [facility] Comment:No Respiratory Syncy tial Virus RNA detected by PCR (amplified probe) Upper Respiratory Nasopharyngeal swab / Unknown Non-blood Collection / Unknown 09/29/2024 9:19 AM EST 09/29/2024 9:19 AM EST Romeo Harvey MD LAB MICRO - GENERA L ORDERABLES Final Result [facility] [address] [place] [address] documented in this encounter Visit Diagnoses Diagnosis Type 2 diabetes mellitus with hemoglobin A1c goal of less than 7.0% (HCC)- Primary Parkinsonism, unspecified Parkinsonism type (HCC) Bipolar affective disorder, remission status unspecified (HCC) Current moderate episode of major depressive disorder, unspecified whether recurrent (HCC) Idiopathic cardiomyopathy (HCC) Other primary cardiomyopathies Type 2 diabetes mellitus with diabetic chronic kidney disease, unspecified CKD stage, unspecified whether extermination supervisor insulin use (HCC) Type 2 diabetes mellitus with stage 3a chronic kidney disease, without long-term current use of insulin (HCC) Neuroleptic-induced parkinsonism (HCC) Secondary Parkinsonism HTN, goal below 140/90 Unspecified essential hypertension Hyperlipidemia with target LDL less than 70 Other and unspecified hyperlipidemia Pulmonary emphysema, unspecified emphysema type (HCC) Restless legs syndrome Restless legs syndrome (RLS) GENERAL OSTEOARTHROSIS Generalized osteoarthrosis, unspecified site Acute cough documented in this encounter Care Teams Relay Technician Relationship Specialty Start Date End Date Romeo Franks MD [address] [place] [address] [place] [address] PCP - General Family Medicine 11/18/22 documented as of this encounter
--- OUTSIDE RECORDS SUMMARY | 2024-12-06 20:54 | External Medical Summary | Summary of Care ---
Author Name Unknown Organization [facility] Address [address] [place] [address] Phone [phone] Care Team Providers Care Fuel Management Handler Name Role Phone Kristie Franks MD Primary Care Prov ider Reason for Visit * Reason Onset Date Comments Advice 10/21/2024 Encounter Details Date Type Department Care Team (Late st Contact Info) Description 10/21/2024 Telephone Audiology [facility] [address] Services, Scheduling [address] [place] [address] Advice Allergies Active Allergy Reactions Criticality Noted Date Comments Latex 04/04/2009 Penicillins Low 03/24/2023 "It makes my bottom sore" documented as of this encounter (statuses as of 10/21/2024) Medications Escitalopram Oxalate 20 MG Oral Tablet (Lexapro) Take 1 Tablet by mouth in the morning. 09/28/19 Active Austedo 12 MG Oral Tablet Take 2 Tablets by mouth in the morning and 2 Tablets before bedtime. 10/29/19 Active OneTouch UltraSoft LancetsIndications: Type 2 diabetes mellitus with diabetic chronic kidney disease, unspecified CKD stage, unspecified whether halfway insulin use (HCC) Test once Daily Dx [...] bedtime. 30 Tablet 5 07/05/20 24 Active Pramipexole Dihydrochloride 0.5 MG Oral Tablet (Mirapex) Take 1 Tablet by mouth at bedtime. 90 Tablet 1 08/02/20 24 Active oxyCODONE-Acetamino phen 10-325 MG Oral [...] as of this encounter (statuses as of 10/21/2024) Active Problems Problem Noted Date Diagnosed Date [...] as of this encounter (statuses as of 10/21/2024) Resolved Problems Problem Noted Date Diagnosed Date Resolved Date Alzheimer's disease, unspecified (CODE) 02/09/2024 04/07/2024 Type 2 diabetes mellitus wit h diabetic chronic kidney disease 11/13/2022 02/09/2024 Malignant neoplasm of uterus 11/04/2019 09/29/2024 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 documented as of this encounter (statuses as of 10/21/2024) Immunizations Name Administration Dates Next Due COVID-19 mRNA, LNP-s, No Pre serve, 2-Dose Series (Pfizer) 05/01/2021 COVID-19, MRNA-LNP, PF, 30 M CG/0.3 mL, 12 YRS AND ABOVE, IM (Edupath-Comirnat) 07/18/2023 Pneumococcal Conjugate Vacci ne, 20-valent ([id number]) 04/29/2023 Seasonal Influenza Vac., MDV , IM, [...] encounter Miscellaneous Notes * Telephone Encounter - Ava Holm OSA - 10/21/2024 2:01 PM EST Pt was here on and got new hearing aids and when she got home the black piece on the end was missing can we mail her a new one [phone] documented in this encounter Plan of Treatment Upcoming Encounters Date Type Department Care Team (Late st Contact Info) Description 11/04/2024 10:00 AM EST Office Visit Audiology [facility] 132 [facility] [place] [address] Kaitlin Mcintyre Au.D. [address] [place] [address] 12/08/2024 10:00 AM EDT Office Visit Cardiology, [facility] 132 [facility] [place] [address] Selena Villanueva CRNP [address] [place] [address] [place] [address] 01/19/2025 11:40 AM EDT Office Visit Family [address] [phone] Kristie Franks MD [address] [place] [address] [place] [address] 01/25/2025 3:40 PM EDT Office Visit [facility]rology [facility] [place] [address] Otilio Bee MD [address] [place], [place] [id number] 03/16/2025 1:00 PM EDT Office Visit Family [address] [phone] Kristie Franks MD [address] [place] [address] [place] [address] Scheduled Procedures Name Priority Associated Diagnoses Date/Ti [...] ONCE FOR ASTHMA-ADULT 09/19/2024 Mammogram 11/13/2024 11/14/2023, 03/04/2024, 11/12/2022, Additional history exists Albumin/Creatinine Ratio 02/08/2025 02/09/2024, 03/0 04/2023 CKD HGB USE SMARTSET 93481 02/08/202502/08, 01/26/2021, 01/20/2021, Additional history exists GFR 03/29/2025 09/29/2024, 06/0 11/2023, 04/29/2023, Additional history exists HbA1c 03/29/2025 09/29/2024, 06/0 11/2023, 04/29/2023, Additional history exists Depression Monitoring 04/12/2025 04/12/2024 O2 ASSESSMENT COMPLETED IN PAST YEAR FOR COPD 07/28/2025 07/28/2024 CKD PHOS USE SMARTSET 38104 09/29/2025 09/29/2024, 0 10/05/1997 Diabetic Foot Exam [...] filedocumented as of this encounter Care Teams Fuel Management Handler Relationship Specialty Start Date End Date Kristie Franks MD [address] [place] [address] [place] [address] PCP - General Family Medicine 11/18/22 documented as of this encounter
--- OUTSIDE RECORDS SUMMARY | 2024-12-06 20:54 | External Medical Summary | Summary of Care ---
Author Name Unknown Organization [facility] Address [address] [place] [address] Phone [phone] Care Team Providers Care Glazier Structural Glass Name Role Phone Kristie Franks MD Primary Care Prov ider Reason for Visit * Reason Onset Date Comments Medication Refill 10/21/2024 Encounter Details Date Type Department Care Team (Late st Contact Info) Description 10/21/2024 Refill Family Medicine [address] [phone] Kristie Franks MD [address] [place] [address] [place] [address] Disc disorder of lumbar region; Chronic pain syndrome; Chronic right-sided low back pain with right-sided sciatica Allergies Active Allergy Reactions Criticality Noted Date [...] kidney disease, unspecified CKD stage, unspecified whether senior living insulin use ([facility]) Test once Daily Dx E11.9 100 Each [...] bedtime. 90 Tablet 1 10/22/19 25 Active Pramipexole Dihydrochloride 0.5 MG Oral [...] (PFIZER-Comirnaty) 07/18/2023 Pneumococcal Conjugate Vacci ne, 20-valent ([id number]) 04/29/2023 Seasonal Influenza Vac., MDV , IM, [...] Encounter - Elizabeth Yap RN - 10/25/2024 12:12 PM EST See other enc. No answer no voice mail. If pt calls back have her schedule with dr ruperto harvey to discuss * Telephone Encounter - Kristie rFanks MD - 10/22/2024 3:32 PM EST Schedule appt with me to discuss pain medicine management. OK for 20 mins as will be focused just on pain management. * Telephone Encounter - Raymond Carlson OSA - 10/22/2024 2:59 PM EST Pt returning call. She states she is using the Fentanyl patch as directed, but she states it does not seem to be helping. Made aware of the Mirapex renewal. * Telephone Encounter - Yasmeen Butler CMA - 10/22/2024 2:16 PM EST Voicemail is full on Chante's phone. I left a message on the second phone number. When Chante calls in please verify the following for dr. Ruperto Harvey. Mirapex renewed. She was switched from Oxycodone to Fentanyl patch last appt. Please confirm she is using the fentanyl patch as directed? * Telephone Encounter - Kristie Franks MD - 10/22/2024 9:02 AM EST Signed Prescriptions: Disp Refills Pramipexole Dihydrochloride 0.5 MG Oral Ta*90 Tab*1 Sig: Take 1 Tablet by mouth at bedtime. Authorizing Provider: KRISTIE FRANKS Refused Prescriptions: Disp Refills oxyCODONE-Acetaminophen 10-325 MG Oral Tab*10 Tab*0 Sig: Take 1 Tablet by mouth in the morning and 1 Tablet in the evening. R efused By: KRISTIE GAGE Reason for Refusal: Refill Not Appropriate * Telephone Encounter - Kristie Franks MD - 10/22/2024 9:02 AM EST Signed Prescriptions: Disp Refills Pramipexole Dihydrochloride 0.5 MG Oral Ta*90 Tab*1 Sig: Take 1 Tablet by mouth at bedtime. Authorizing Provider: KRISTIE FRANKS Refused Prescriptions: Disp Refills oxyCODONE-Acetaminophen 10-325 MG Oral Tab*10 Tab*0 Sig: Take 1 Tablet by mouth in the morning and 1 Tablet in the evening. R efused By: KRISTIE GAGE Reason for Refusal: Refill Not Appropriate * Telephone Encounter - Kristie Franks MD - 10/22/2024 9:01 AM EST Mirapex renewed. She was switched from Oxycodone to Fentanyl patch last appt. Please confirm she is using the fentanyl patch as directed? * Telephone Encounter - Vesna Mtz [facility] - 10/22/2024 8:37 AM EST Pending Prescriptions: Disp Refills oxyCODONE-Acetaminophen 10-325 MG Oral Tab*10 Tab*0 Sig: Take 1 Tablet by mouth in the morning and 1 Tablet in the evening. Pramipexole Dihydrochloride 0.5 MG Oral Ta*90 Tab*1 Sig: Take 1 Tablet by mouth at bedtime. * Telephone Encounter - Vesna Mtz HENNY - 10/22/2024 8:34 AM EST Please issue if appropriate or please refuse request. Per last appt note: Transition from oral pain medication to fentanyl patch for better control and reduced risk of misuse Mirapex pended per message below. I have reviewed the patient’s controlled substance dispensing history in the Prescription Drug Monitoring Program in compliance with the [facility] regulations before prescribing a controlled substance. PDMP checked on 10/22/2024. Pending Prescriptions: Disp Refills oxyCODONE-Acetaminophen 10-325 MG Oral Ta*10 Tab*0 Sig: Take 1 Tablet by mouth in the morning and 1 Tablet in the evening. Last Visit: 09/29/2024 (in office), Visit date not found (telemedicine) Next Visit: 01/19/2025 Date medication was last filled: 09/25/24 Date medication is due for refill: 09/29/24 Pharmacy: [id number] [id number] [facility] Is this request for a controlled substance? Yes and Urine Drug Screen was completed Toxicology results: Results for orders placed or performed in visit on 09/29/24 PAIN MANAGEMENT DRUG PANEL, URINE W/ INTERPRETATION Result Value Pain Management Interpretation Based on the medication information provided: The positive oxycodone screening result is CONSISTENT with oxycodone use. Confirmatory testing is available upon request. Amphetamines Screen, U Refer to confirmation results (A) Benzodiazepines Screen, U Negative Cannabinoids Screen, U Negative Cocaine Metabolite Screen, U Negative Fentanyl Screen, U Negative Hydrocodone Screen, U Negative Methadone Metabolite Screen, U Negative Morphine/Codeine Screen, U Negative Oxycodone Screen, U Positive (A) Specimen Validity Interpretation Normal Creatinine, U 346 Narrative Cutoff Concentrations: Drug Level Amphetamines 500 ng/mL Benzodiazepines 100 ng/mL Cannabinoids 50 ng/mL Cocaine Metabolite 150 ng/mL Fentanyl 1 ng/mL Hydrocodone / Hydromorphone 300 ng/mL Methadone Metabolite 100 ng/mL Morphine / Codeine 300 ng/mL Oxycodone / Oxymorphone 100 ng/mL Screening results are presumptive and can only be used for medical purposes. Confirmatory testing is available upon request. Please approve if appropriate. Thank you, Vesna Mtz, Ever Clinical Pharmacist [facility] ([facility]) 10/22/24 8:34 AM [phone] * Telephone Encounter - Siena Sweeney OSA - 10/21/2024 3:23 PM EST Pt is calling in to check on status of medication request. Pt says that she also needs her medication for her restless legs. Please call pt as soon as possible regarding medication * Telephone Encounter - Justyna Carpenter PHARM Tech - 10/21/2024 1:26 PM EST Did you pend patient's preferred pharmacy and medication before forwarding?yes Pharmacy: [facility] [id number] Pending Prescriptions: Disp Refills oxyCODONE-Acetaminophen 10-325 MG Oral Ta*10 Tab*0 Sig: Take 1 Tablet by mouth in the morning and 1 Tablet in the evening. Last Visit: 09/29/2024 (in office), Visit date not found (telemedicine) Next Visit: 01/19/2025 If no future appointments scheduled, and last appointment is greater than a year ago, please schedule patient for a follow-up appointment Last date the medication was ordered: 09/25/2024 Is this request for a controlled substance?Yes, What was the last refill date 09/25/2024 w/ quantity 10 and dosage 10-325 and Urine Drug Screen was completed Urine Drug Screen: Results for orders placed or performed in visit on 09/29/24 PAIN MANAGEMENT DRUG PANEL, URINE W/ INTERPRETATION Result Value Pain Management Interpretation Based on the medication information provided: The positive oxycodone screening result is CONSISTENT with oxycodone use. Confirmatory testing is available upon request. Amphetamines Screen, U Refer to confirmation results (A) Benzodiazepines Screen, U Negative Cannabinoids Screen, U Negative Cocaine Metabolite Screen, U Negative Fentanyl Screen, U Negative Hydrocodone Screen, U Negative Methadone Metabolite Screen, U Negative Morphine/Codeine Screen, U Negative Oxycodone Screen, U Positive (A) Specimen Validity Interpretation Normal Creatinine, U 346 Narrative Cutoff Concentrations: Drug Level Amphetamines 500 ng/mL Benzodiazepines 100 ng/mL Cannabinoids 50 ng/mL Cocaine Metabolite 150 ng/mL Fentanyl 1 ng/mL Hydrocodone / Hydromorphone 300 ng/mL Methadone Metabolite 100 ng/mL Morphine / Codeine 300 ng/mL Oxycodone / Oxymorphone 100 ng/mL Screening results are presumptive and can only be used for medical purposes. Confirmatory testing is available upon request. Patient Phone Numbers Labs: Lab Results Component Value Date/Time CREAT 1.2 (H) 09/29/2024 09:23 AM CREAT 0.68 04/07/2021 06:33 AM CREAT 1.0 11/05/2013 04:10 PM POTASSIUM 4.3 09/29/2024 09:23 AM POTASSIUM 3.8 04/07/2021 06:33 AM POTASSIUM 3.7 11/05/2013 04:10 PM TSH 1.10 02/16/2024 12:43 PM TSH 1.52 01/13/2010 11:01 AM LDL 77 09/29/2024 09:23 AM LDL 146 (H) 03/05/2011 10:20 AM ALT 15 09/29/2024 09:23 AM ALT 11 03/05/2011 10:20 AM HGBA1C 5.4 09/29/2024 09:23 AM HGBA1C 5.2 12/02/2008 08:16 AM documented in this encounter Plan of Treatment Upcoming Encounters Date Type Department Care Team (Late st Contact Info) Description 11/04/2024 10:00 AM EST Office Visit Audiology [facility] [address] [place] [address] Kaitlin Mcintyre Au.D. 132 [place] [address] 12/08/2024 10:00 AM EDT Office Visit Cardiology, [facility] 132 [place] [address] Selena Villanueva CRNP [address] [place] [address] 01/19/2025 11:40 AM EDT Office Visit Family [address] [phone] Kristie Franks MD [address] [place] [address] [place] [address] 01/25/2025 3:40 PM EDT Office Visit Neurology [facility] 200 [place] [address] Otilio Bee MD [address] [place] [address] 03/16/2025 1:00 PM EDT Office Visit Family [address] [phone] Kristie Franks MD [address] [place] [address] [place] [address] Scheduled Procedures Name Priority Associated Diagnoses Date/Ti [...] 02/09/2024, 03/0 04/2023 CKD HGB USE SMARTSET 67851 02/08/202502/08, 01/26/2021, 01/20/2021, Additional history exists GFR 03/29/2025 09/29/2024, 06/0 11/2023, 04/29/2023, Additional history exists HbA1c 03/29/2025 09/29/2024, 06/0 11/2023, 04/29/2023, Additional history exists Depression Monitoring 04/12/2025 04/12/2024 O2 ASSESSMENT COMPLETED IN PAST YEAR FOR COPD 07/28/2025 07/28/2024 CKD PHOS USE SMARTSET 48430 09/29/2025 09/29/2024, 0 10/05/1997 Diabetic Foot Exam [...] Visit Diagnoses Diagnosis Disc disorder of lumbar region Other and unspecified disc disorder of lumbar region Chronic pain syndrome Chronic right-sided low back pain with right-sided sciatica documented in this encounter Care Teams Glazier Structural Glass Relationship Specialty Start Date End Date Kristie Franks MD [address] [place] [address] [place] [address] PCP - General Family Medicine 11/18/22 documented as of this encounter
--- OUTSIDE RECORDS SUMMARY | 2024-12-06 20:54 | External Medical Summary | Summary of Care ---
Author Name Unknown Organization [facility] Address [address] [place] [address] Phone [phone] Care Team Providers Care Machining Department Supervisor Name Role Phone Kristie Franks MD Primary Care Prov ider Reason for Visit * Reason Onset Date Comments Advice 10/22/2024 Encounter Details Date Type Department Care Team (Late st Contact Info) Description 10/22/2024 Telephone Family Medicine [address] [phone] Kristie Franks MD [address] [place] [address] [place] [address] Advice Allergies Active Allergy Reactions Criticality [...] kidney disease, unspecified CKD stage, unspecified whether ferry terminal supervisor insulin use (HCC) Test once Daily [...] mRNA, LNP-s, No Pre serve, 2-Dose Series ([employer]) 05/01/2021 COVID-19, MRNA-LNP, PF, 30 M CG/0.3 mL, 12 YRS AND ABOVE, IM ([facility]) 07/18/2023 Pneumococcal Conjugate Vacci ne, 20-valent ([id number]) 04/29/2023 Seasonal Influenza Vac., MDV , IM, [...] for a Call Back Pt can at [phone] * Telephone Encounter - David Harry OSA - 10/22/2024 3:24 PM EST Reason for patient's call: Pt called back in to speak with nurse, Call dropped when being transferred again. * Telephone Encounter - Angelique Mcgovern OSA - 10/22/2024 3:21 PM EST Transferred pt over and the call dropped talked Gladis and she sated her manager strategic partnerships is work on itand I am going to call pt back and rely the message When I called I got her voicemail and it was full could not leave a message Thanks * Telephone Encounter - Anthony Canas LPN - 10/22/2024 3:18 PM EST Call dropped before transferred. After reviewing chart, multiple TE's on same issues and PCP and trimming caser is managing concern inother TE's. * Telephone Encounter - Jesusita Soler OSA - 10/22/2024 3:08 PM EST Reason for patient's call: PT calling back-patch not working oxycodone works much better for PT. She would like to speak to a nurse. Caller was transferred to [place] at the nurse line. FYI-PT states sisters daughter (whom she used to live with-does not now) is addicted to Oxycodone. FYI documented in this encounter Plan of Treatment Upcoming Encounters Date Type Department Care Team (Late st Contact Info) Description 11/04/2024 10:00 AM EST Office Visit Audiology [facility] 132 [facility] [place] [address] Kaitlin Mcintyre Au.D. [facility] [place] [address] 12/08/2024 10:00 AM EDT Office Visit Cardiology, [facility] 132 [facility] [place] [address] Selena Villanueva CRNP [address] [place] [address] [place] [address] 01/19/2025 11:40 AM EDT Office Visit Family Medicine [address] [place] [phone] Kristie Franks MD [address] [place] [address] [place] [address] 01/25/2025 3:40 PM EDT Office Visit [facility] [address] Otilio Bee MD [address] [place] [facility] [place] [address] 03/16/2025 1:00 PM EDT Office Visit Family Medicine [address] [place] [phone] Kristie Franks MD [address] [place] [address] [place] [address] Scheduled Procedures Name Priority Associated Diagnoses Date/Ti [...] 02/09/2024, 03/0 04/2023 CKD HGB USE SMARTSET 90715 02/08/202502/08, 01/26/2021, 01/20/2021, Additional history exists GFR 03/29/2025 09/29/2024, 06/0 11/2023, 04/29/2023, Additional history exists HbA1c 03/29/2025 09/29/2024, 06/0 11/2023, 04/29/2023, Additional history exists Depression Monitoring 04/12/2025 04/12/2024 O2 ASSESSMENT COMPLETED IN PAST YEAR FOR COPD 07/28/2025 07/28/2024 CKD PHOS USE SMARTSET 62062 09/29/2025 09/29/2024, 0 10/05/1997 Diabetic Foot Exam [...] filedocumented as of this encounter Care Teams Machining Department Supervisor Relationship Specialty Start Date End Date Kristie Franks MD [address] [place] [address] [place] Jaram[place] [phone] PCP - General Family Medicine 11/18/22 documented as of this encounter
--- OUTSIDE RECORDS SUMMARY | 2024-12-06 20:55 | External Medical Summary | Summary of Care ---
Author Name Unknown Organization [facility] Address [address] [place] [address] Phone [phone] Care Team Providers Care Kardex Clerk Name Role Phone Kristie Franks MD Primary Care Prov ider Reason for Visit * Reason Onset Date Comments FYI 10/04/2024 Encounter Details Date Type Department Care Team (Late st Contact Info) Description 10/04/2024 Telephone Family Medicine [address] [phone] Kristie Franks MD [address] [place] [address] [place] [address] FYI Allergies Active Allergy Reactions Criticality Noted Date Comments Latex 04/04/2009 Penicillins Low 03/24/2023 "It makes my bottom sore" documented as of this encounter (statuses as of 10/04/2024) Medications Escitalopram Oxalate 20 MG Oral Tablet (Lexapro) Take 1 Tablet by mouth in the morning. 09/28/19 Active Austedo 12 MG Oral Tablet Take 2 Tablets by mouth in the morning and 2 Tablets before bedtime. 10/29/19 Active OneTouch UltraSoft LancetsIndications: Type 2 diabetes mellitus with diabetic chronic kidney disease, unspecified CKD stage, unspecified whether long term care administrator insulin use (HCC) Test once Daily Dx [...] Tablet in the evening. 10 Tablet 09/25/19 Active Rosuvastatin Calcium 20 MG Oral Tablet (Crestor)Indication s:Hyperlipidemia with target LDL less than 70 TAKE 1 TABLET BY MOUTH EVERY MORNING 90 Tablet 1 09/25/19 Active fentaNYL 25 MCG/HR Transdermal Patch 72 Hour (Duragesic)Indicati ons:Generalized osteoarthritis Place 1 Patch over 72 hours topically on the skin every 3 days. Apply for pain 10 Patch 09/29/19 Active Benzonatate 100 MG Oral Capsule (Tessalemy Sutton)Indications: Acute cough Take 1 Capsule by mouth 3 times a day as needed for Cough. Do not cut, crush, or chew. 50 Capsule 1 09/29/19 25 Active Doxycycline Hyclate 100 MG Oral CapsuleIndications: Acute cough Take 1 Capsule by mouth in the morning and 1 Capsule before bedtime. Do all this for 10 days. Until gone.. 20 Capsule 09/29/19 25 025 Active documented as of this encounter (statuses as of 10/04/2024) Active Problems Problem Noted Date Diagnosed Date [...] as of this encounter (statuses as of 10/04/2024) Resolved Problems Problem Noted Date Diagnosed Date Resolved Date Alzheimer's disease, unspecified (CODE) 02/09/2024 04/07/2024 Type 2 diabetes mellitus wit h diabetic chronic kidney disease 11/13/2022 02/09/2024 Malignant neoplasm of uterus 11/04/2019 09/29/2024 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 documented as of this encounter (statuses as of 10/04/2024) Immunizations Name Administration Dates Next Due COVID-19 mRNA, LNP-s, No Pre serve, 2-Dose Series ([employer]) 05/01/2021 COVID-19, MRNA-LNP, PF, 30 M CG/0.3 mL, 12 YRS AND ABOVE, IM (PFIZER-Comirnaty) 07/18/2023 Pneumococcal Conjugate Vacci ne, 20-valent ([id number]) 04/29/2023 Seasonal Influenza Vac., MDV , IM, [...] ages 0-17 years) Not on file 04/22/2024 Comments No Sex and Gender Information Value Date Recorded Sex Assigned at Not on file Legal Sex Female 5:26 AM EST Gender Identity Not on file Sexual Orientation Not on file Occupation Industry Job Start Date Job End Date unemployed Not on file Not on file Not on file documented as of this encounter Miscellaneous Notes * Telephone Encounter - Annmarie Fernando OSA - 10/04/2024 3:11 PM EST Per patient she has moved an needs all refills and new prescriptions to go to [facility] in [place] * Telephone Encounter - Carol Tinoco CMA - 10/04/2024 2:47 PM EST notified in a different encounter * Telephone Encounter - Nohemi Callaway OSA - 10/04/2024 11:02 AM EST Pt is stating that she was going to get a application to get her drivers license back but she is choosing against that now because she will loose her pain meds. documented in this encounter Plan of Treatment Upcoming Encounters Date Type Department Care Team (Late st Contact Info) Description 12/08/2024 10:00 AM EDT Office Visit Cardiology, [facility] [address] [facility] [place] [address] Selena Villanueva CRNP [address] [place] [address] 01/19/2025 11:40 AM EDT Office Visit Family [address] [phone] Kristie Franks MD [address] [place] [address] [place] [address] 01/25/2025 3:40 PM EDT Office Visit Neurology [facility] [address] [place] [address] Otilio Bee MD [address] [place] [address] 03/16/2025 1:00 PM EDT Office Visit [address] [phone] Kristie Franks MD [address] [place] [address] [place] [address] Scheduled Procedures Name Priority Associated Diagnoses Date/Ti [...] 02/09/2024, 03/0 04/2023 CKD HGB USE SMARTSET 52942 02/08/202502/08, 01/26/2021, 01/20/2021, Additional history exists GFR 03/29/2025 09/29/2024, 06/0 11/2023, 04/29/2023, Additional history exists HbA1c 03/29/2025 09/29/2024, 06/0 11/2023, 04/29/2023, Additional history exists Depression Monitoring 04/12/2025 04/12/2024 O2 ASSESSMENT COMPLETED IN PAST YEAR FOR COPD 07/28/2025 07/28/2024 CKD PHOS USE SMARTSET 28536 09/29/2025 09/29/2024, 0 10/05/1997 Diabetic Foot Exam [...] filedocumented as of this encounter Care Teams Kardex Clerk Relationship Specialty Start Date End Date Kristie Franks MD [address] [place] [address] [place] [address] PCP - General Family Medicine 11/18/22 documented as of this encounter
--- OUTSIDE RECORDS SUMMARY | 2024-12-06 20:55 | External Medical Summary | Summary of Care ---
Author Name Unknown Organization [facility] Address [address] [place] [address] Phone [phone] Care Team Providers Care Food Beverage Manager Name Role Phone Kristie Franks MD Primary Care Prov ider Reason for Visit * Reason Onset Date Comments Hearing Aid Question/problem 10/04/2024 Encounter Details Date Type Department Care Team (Late st Contact Info) Description 10/04/[address] [facility] [address] [place] [address] Services, Scheduling [address] [place] [address] Hearing Aid Question/problem Allergies Active Allergy Reactions Criticality Noted Date Comments Latex 04/04/2009 Penicillins Low 03/24/2023 "It makes my bottom sore" documented as of this encounter (statuses as of 10/15/2024) Medications Escitalopram Oxalate 20 MG Oral Tablet (Lexapro) Take 1 Tablet by mouth in the morning. 09/28/19 Active Austedo 12 MG Oral Tablet Take 2 Tablets by mouth in the morning and 2 Tablets before bedtime. 10/29/19 Active OneTouch UltraSoft LancetsIndications: Type 2 diabetes mellitus with diabetic chronic kidney disease, unspecified CKD stage, unspecified whether group home insulin use (HCC) Test once Daily [...] 09/29/19 Active Benzonatate 100 MG Oral Capsule (Tescamilla [...] Until gone.. 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 documented as of this encounter (statuses as of 10/15/2024) Immunizations Name Administration Dates Next Due COVID-19 mRNA, LNP-s, No Pre serve, 2-Dose Series ([employer]) 05/01/2021 COVID-19, MRNA-LNP, PF, 30 M CG/0.3 mL, 12 YRS AND ABOVE, IM (PFIZER-Comirnaty) 07/18/2023 Pneumococcal Conjugate Vacci ne, 20-valent ([id number]) 04/29/2023 Seasonal Influenza Vac., MDV , IM, [...] encounter Miscellaneous Notes * Telephone Encounter - Yamila Kimbrough LPN - 10/15/2024 2:37 PM EST Called patient no answer left message on machine. * Telephone Encounter - Yamila Kimbrough LPN - 10/07/2024 1:50 PM EST Called patient no answer vm is full. * Telephone Encounter - Rekha Morton PA-C - 10/05/2024 8:01 AM EST Please let pt know there were no acute abnormalities to explain symptoms and she is medically cleared for hearing aids. Rekha Morton PA-C * Telephone Encounter - Merced Goodwin LPN - 10/04/2024 1:27 PM EST Once medical clearance has been given from Rekha Morton PA-C after reviewing the imaging that pt had done on 09/30/24, then Kaitlin will be able to move fwd with the hearing aids. * Telephone Encounter - Jazmine Hernandez - No Ob/Or, JULIO C - 10/04/2024 1:09 PM EST Chante is calling to see if her hearing aids are ready for lease picker Please call her back Thank you jazmine documented in this encounter Plan of Treatment Upcoming Encounters Date Type Department Care Team (Late st Contact Info) Description 10/19/2024 9:00 AM EST Office Visit Audiology [facility] [address] [place] [address] Kaitlin Mcintyre Au.D. [address] [place] [address] 12/08/2024 10:00 AM EDT Office Visit Cardiology, [facility] [address] [place] [address] Selena Villanueva CRNP [facility] [place] [address] 01/19/2025 11:40 AM EDT Office Visit Family Medicine [address] [place] [phone] Kristie Franks MD [address] [place] [address] [place] [address] 01/25/2025 3:40 PM EDT Office Visit Neurology [address] [place] [address] Otilio Bee MD [address] [place] [address] 03/16/2025 1:00 PM EDT Office Visit Family Medicine [address] [phone] Kristie Franks MD [address] [place] [address] [place] [phone] Scheduled Procedures Name Priority Associated Diagnoses Date/Ti [...] ONCE FOR ASTHMA-ADULT 09/19/2024 Mammogram 11/13/2024 11/14/2023, 0 04/2024, 11/12/2022, Additional history exists Albumin/Creatinine Ratio 02/08/2025 02/09/2024, 03/0 04/2023 CKD HGB USE SMARTSET 12171 02/08/202502/08, 01/26/2021, 01/20/2021, Additional history exists GFR 03/29/2025 09/29/2024, 060 11/2023, 04/29/2023, Additional history exists HbA1c 03/29/2025 09/29/2024, 06/0 11/2023, 04/29/2023, Additional history exists Depression Monitoring 04/12/2025 04/12/2024 O2 ASSESSMENT COMPLETED IN PAST YEAR FOR COPD 07/28/2025 07/28/2024 CKD PHOS USE SMARTSET 18604 09/29/2025 09/29/2024, 0 10/05/1997 Diabetic Foot Exam [...] filedocumented as of this encounter Care Teams Food Beverage Manager Relationship Specialty Start Date End Date Kristie Franks MD [address] [place] [address] [place] [address] PCP - General Family Medicine 11/18/22 documented as of this encounter
--- OUTSIDE RECORDS SUMMARY | 2024-12-06 20:55 | External Medical Summary | Summary of Care ---
Author Name Unknown Organization [facility] Address [address] [place] [address] Phone [phone] Care Team Providers Care Life Skills Educator Name Role Phone Kristie Franks MD Primary Care Prov ider Reason for Visit * Reason Onset Date Comments Med Request 10/08/2024 Encounter Details Date Type Department Care Team (Late st Contact Info) Description 10/08/2024 Telephone Family Medicine [address] [phone] Kristie Franks MD [address] [place] [address] [place] [address] Med Request Allergies Active Allergy Reactions Criticality Noted Date Comments Latex 04/04/2009 Penicillins Low 03/24/2023 "It makes my bottom sore" documented as of this encounter (statuses as of 10/09/2024) Medications Escitalopram Oxalate 20 MG Oral Tablet (Lexapro) Take 1 Tablet by mouth in the morning. 09/28/19 Active Austedo 12 MG Oral Tablet Take 2 Tablets by mouth in the morning and 2 Tablets before bedtime. 10/29/19 23 Active OneTouch UltraSoft LancetsIndications: Type 2 diabetes mellitus with diabetic chronic kidney disease, unspecified CKD stage, unspecified whether terminal make up operator insulin use (HCC) Test once Daily [...] or chew. 50 Capsule 1 09/29/19 Active Doxycycline Hyclate 100 MG Oral CapsuleIndications: Acute cough Take 1 Capsule by mouth in the morning and 1 Capsule before bedtime. Do all this for 10 days. Until gone.. 20 Capsule 09/29/19 25 025 Active traZODone HCl 100 MG Oral Tablet (Desyrel) Take 2 Tablets by mouth at bedtime. 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 documented as of this encounter (statuses as of 10/09/2024) Immunizations Name Administration Dates Next Due COVID-19 mRNA, LNP-s, No Pre serve, 2-Dose Series ([employer]) 05/01/2021 COVID-19, MRNA-LNP, PF, 30 M CG/0.3 mL, 12 YRS AND ABOVE, IM (PFIZER-Comirnaty) 07/18/2023 Pneumococcal Conjugate Vacci ne, 20-valent ([id number]) 04/29/2023 Seasonal Influenza Vac., MDV , IM, [...] encounter Miscellaneous Notes * Telephone Encounter - Bucky Givens [facility] - 10/08/2024 3:46 PM EST Did you pend patient's preferred pharmacy and medication before forwarding?yes Pharmacy: [id number] [id number] [facility] Pending Prescriptions: Disp Refills traZODone HCl 100 MG Oral Tablet (Desyrel) Sig: Take 2 Tablets by mouth at bedtime. Last Visit: 09/29/2024 (in office), Visit date not found (telemedicine) Next Visit: 01/19/2025 If no future appointments scheduled, and last appointment is greater than a year ago, please schedule patient for a follow-up appointment Last date the medication was ordered: NA Is this request for a controlled substance?No Urine Drug Screen: Results for orders placed or performed in visit on 09/29/24 PAIN MANAGEMENT DRUG PANEL, URINE W/ INTERPRETATION Result Value Compliance Interpretation Based on the medication information provided: [...] U Negative Oxycodone Screen, U Positive (A) Valid Interpretation Normal Creatinine, U 346 Narrative Cutoff [...] 09:23 AM HGBA1C 5.2 12/02/2008 08:16 AM * Telephone Encounter - Nuha Hu, general intern - 10/08/2024 2:01 PM EST Patient calling on Status of Trazodone 100 mg. States pharmacy is [facility] in [place]. Patient can be reached at [phone] Thank you, Nuha Hu Invasive Manager I [facility] ([facility]) 10/08/2024,2:02 PM * Telephone Encounter - Justyna Carpenter, general intern - 10/08/2024 1:50 PM EST Patient is out of med. The following medication is listed as discontinued as of 07/05/2024, due to "None" please review and approve if appropriate. Trazodone 100mg Patient said that she's been taking three tablets every night. Justyna Krishnamurthy Residential Instructor II [facility] 10/08/2024 1:54 PM documented in this encounter Plan of Treatment Upcoming Encounters Date Type Department Care Team (Late st Contact Info) Description 10/12/2024 9:00 AM EST Office Visit Audiology [facility] 132 [facility] [place] [address] Kaitlin Mcintyre Au.D. 132 [facility] [place] [address] 12/08/2024 10:00 AM EDT Office Visit Cardiology, [facility] 132 [facility] [place] [address] Selena Villanueva CRNP [address] [place] [address] 01/19/2025 11:40 AM EDT Office Visit Family [address] [phone] Kristie Franks MD [address] [place] [address] [place] [address] 01/25/2025 3:40 PM EDT Office Visit Neurology [facility] [address] [place] [address] Otilio Bee MD [address] [place] [address] 03/16/2025 1:00 PM EDT Office Visit Family Medicine [address] [place] [phone] Kristie Franks MD [address] [place] [address] [place] [address] Scheduled Procedures Name Priority [...] 02/09/2024, 03/0 04/2023 CKD HGB USE SMARTSET 25291 02/08/202502/08, 01/26/2021, 01/20/2021, Additional history exists GFR 03/29/2025 09/29/2024, 06/0 11/2023, 04/29/2023, Additional history exists HbA1c 03/29/2025 09/29/2024, 06/0 11/2023, 04/29/2023, Additional history exists Depression Monitoring 04/12/2025 04/12/2024 O2 ASSESSMENT COMPLETED IN PAST YEAR FOR COPD 07/28/2025 07/28/2024 CKD PHOS USE SMARTSET [address] 09/29/2025 09/29/2024, 0 10/05/1997 Diabetic Foot Exam [...] filedocumented as of this encounter Care Teams Life Skills Educator Relationship Specialty Start Date End Date Kristie Franks MD [address] [place] [address] [place] [address] PCP - General Family Medicine 11/18/22 documented as of this encounter
--- OUTSIDE RECORDS SUMMARY | 2024-12-06 20:55 | External Medical Summary | Summary of Care ---
Author Name Unknown Organization [facility] Address [address] [facility] [place] [address] Phone [phone] Care Team Providers Care Jumbo Operator Name Role Phone Kristie Franks MD Primary Care Prov ider Encounter Details Date Type Department Care Team (Latest Contact Info) Description 10/19/2024 9:00 AM EST Office Visit Audiology [facility] [address] [place] [address] Kaitlin Mcintyre AuNena [address] [place] [address] Asymmetrical sensorineural hearing loss* Allergies Active Allergy Reactions Criticality Noted Date [...] kidney disease, unspecified CKD stage, unspecified whether continuous churn buttermaker insulin use (HCC) Test once Daily Dx [...] mRNA, LNP-s, No Pre serve, 2-Dose Series ([employer]) 05/01/2021 COVID-19, MRNA-LNP, PF, 30 M CG/0.3 mL, 12 YRS AND ABOVE, IM (PFIZER-Comirnaty) 07/18/2023 Pneumococcal Conjugate Vacci ne, 20-valent ([id number]) 04/29/2023 Seasonal Influenza Vac., MDV , IM, [...] as of this encounter Progress Notes * Kaitlin Mcintyre Au.D. - 10/21/2024 10:59 AM EST Hearing Aid Fitting Reason for Visit Chante was seen today for a hearing aid fitting. Accompanied by her day care home provider. She was seen for a hearing evaluation in this department on 09/13/2024 and was found to have an asymmetric bilateral sensorineural hearing loss. She has received medical clearance from her ENT provider. At a hearing aid consultation shortly after, Chante was advised as to the options for amplification, including in-the-ear vs. behind-the ear aids, levels of technology, and monaural vs. binaural fittings. Chante decided to obtain binaural amplification and returns today to be fit with them. Hearing Aid Specifications Watch Train Assembler: [employer] Model:Real 2 miniRITE-R Serial Number:[id number] (R) [id number] (L) Ear: R/L Speaker: #2 85 dB right, #2 100 dB left Dome: 8 mm double johnson right, power left Battery: rechargeable Warranty Expiration:11/10/2027 Hearing Aid Programming The hearing aids were connected to the [employer] software. Feedback parts department manager was not run. The hearing aids were set to adaptation level 2. No target adjustments were made. Chante felt that the sound quality of the aids was clear and at a comfortable volume. Hearing Aid Orientation The hearing aids fit well and Chante had little difficulty with insertion and removal of the aids. Chante was instructed as to the care, use, and maintenance of the hearing aids. Realistic expectationsfor the use of amplification was also discussed. She was advised to try and wear the hearing aids for at least 6-8 hours daily. She was advised not to wear the hearing aids at nighttime, around water, or around loud noise. Chante understood all instructions. All of her questions were answered. Plan Chante will return in 2 weeks for a hearing aid check. She will call for an appointment sooner if she has any difficulty with the hearing aids. Lorena Polk, CCC-A documented in this encounter Plan of Treatment Upcoming Encounters Date Type Department Care Team (Late st Contact Info) Description 11/04/2024 10:00 AM EST Office Visit [facility] [address] Kaitlin Mcintyre Au.D. 132 [facility] [place] [address] 12/08/2024 10:00 AM EDT Office Visit Cardiology, [facility] 132 [facility] [place] [address] Selena Villanueva CRNP [address] [facility] [place] [address] 01/19/2025 11:40 AM EDT Office Visit Family Medicine [address] [place] [phone] Kristie Franks MD [address] [place] [address] [place] [address] 01/25/2025 3:40 PM EDT Office Visit Neurology [facility] [address] [place] [address] Otilio Bee MD [address] [facility] [address] 03/16/2025 1:00 PM EDT Office Visit Family Medicine [address] [phone] Kristie Franks MD [address] [place] [address] [place] [address] Scheduled Procedures Name Priority Associated Diagnoses Date/Ti [...] 02/09/2024, 03/0 04/2023 CKD HGB USE SMARTSET 67944 02/08/202502/08, 01/26/2021, 01/20/2021, Additional history exists GFR 03/29/2025 09/29/2024, 06/0 11/2023, 04/29/2023, Additional history exists HbA1c 03/29/2025 09/29/2024, 06/0 11/2023, 04/29/2023, Additional history exists Depression Monitoring 04/12/2025 04/12/2024 O2 ASSESSMENT COMPLETED IN PAST YEAR FOR COPD 07/28/2025 07/28/2024 CKD PHOS USE SMARTSET 02850 09/29/2025 09/29/2024, 0 10/05/1997 Diabetic Foot Exam [...] as of this encounter Visit Diagnoses Diagnosis Asymmetrical sensorineural hearing loss- Primary Sensorineural hearing loss, asymmetrical documented in this encounter Care Teams Jumbo Operator Relationship Specialty Start Date End Date Kristie Franks MD [address] [place] [address] [place] [address] PCP - General Family Medicine 11/18/22 documented as of this encounter
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
--- OUTSIDE RECORDS SUMMARY | 2024-12-06 20:55 | External Medical Summary | Summary of Care ---
Author Name Unknown Organization [facility] Address [address] [place] [address] Phone [phone] Care Team Providers Care Doll Eye Setter Name Role Phone Kristie Franks MD Primary Care Prov ider Reason for Visit * Reason Onset Date Comments Med Request 10/08/2024 Encounter Details Date Type Department Care Team (Late st Contact Info) Description 10/08/2024 Telephone Family Medicine [address] [phone] Kristie Franks MD [address] [place] [address] [place] [address] Med Request Allergies Active Allergy Reactions [...] kidney disease, unspecified CKD stage, unspecified whether emt intermediate insulin use (HCC) Test once Daily [...] mRNA, LNP-s, No Pre serve, 2-Dose Series (Behance) 05/01/2021 COVID-19, MRNA-LNP, PF, 30 M CG/0.3 mL, 12 YRS AND ABOVE, IM (PFIZER-Comirnaty) 07/18/2023 Pneumococcal Conjugate Vacci ne, 20-valent ([id number]) 04/29/2023 Seasonal Influenza Vac., MDV , IM, [...] script * Telephone Encounter - Bucky Givens, DISTILLER - 10/08/2024 3:46 PM EST Did you pend patient's preferred pharmacy and medication before forwarding?yes Pharmacy: E [facility] #[id number][facility] [id number] [facility] Pending Prescriptions: Disp Refills traZODone HCl 100 [...] AM * Telephone Encounter - Nuha Hu bottle blowing machine tender - 10/08/2024 2:01 PM EST Patient calling on Status of Trazodone 100 mg. States pharmacy is [facility] in [place]. Patient can be reached at [phone] Thank you, Nuha Hu Gun Stocker I [facility] Pharmacy Services ([facility]PS) 10/08/2024,2:02 PM * Telephone Encounter - Justyna Carpenter bottle blowing machine tender - 10/08/2024 1:50 PM EST Patient is out of med. The following medication is listed as discontinued as of 07/05/2024, due to "None" please review and approve if appropriate. Trazodone 100mg Patient said that she's been taking three tablets every night. Justyna Krishnamurthy Personnel Psychologist II [facility] Pharm[facility] 10/08/2024 1:54 PM documented in this encounter Plan of Treatment Upcoming Encounters Date Type Department Care Team (Late st Contact Info) Description 11/04/2024 10:00 AM EST Office Visit Audiology [facility] 132 [facility] [place] [address] Kaitlin Mcintyre Au.D. 132 [facility] [place] [address] 12/08/2024 10:00 AM EDT Office Visit Cardiology, [facility] 132 [facility] [place] [address] Selena Villanueva CRNP [address] [place] [address] 01/19/2025 11:40 AM EDT Office Visit Family [address] [phone] Kristie Franks MD [address] [place] [address] [place] [address] 01/25/2025 3:40 PM EDT Office Visit Neurology [facility] 200 [place] [address] Otilio Bee MD 100 [place], [place] [phone] 03/16/2025 1:00 PM EDT Office Visit Family Medicine [address] [phone] Kristie Franks MD [address] [place] [address] [place] [address] Scheduled Procedures Name Priority Associated Diagnoses Date/Ti [...] 02/09/2024, 03/0 04/2023 CKD HGB USE SMARTSET 28946 02/08/202502/08, 01/26/2021, 01/20/2021, Additional history exists GFR 03/29/2025 09/29/2024, 06/0 11/2023, 04/29/2023, Additional history exists HbA1c 03/29/2025 09/29/2024, 06/0 11/2023, 04/29/2023, Additional history exists Depression Monitoring 04/12/2025 04/12/2024 O2 ASSESSMENT COMPLETED IN PAST YEAR FOR COPD 07/28/2025 07/28/2024 CKD PHOS USE SMARTSET 39076 09/29/2025 09/29/2024, 0 10/05/1997 Diabetic Foot Exam [...] filedocumented as of this encounter Care Teams Doll Eye Setter Relationship Specialty Start Date End Date Kristie Franks MD [address] [place] [address] [place] Jar[place] [phone] PCP - General Family Medicine 11/18/22 documented as of this encounter
--- OUTSIDE RECORDS SUMMARY | 2024-12-06 20:55 | External Medical Summary | Summary of Care ---
Author Name Unknown Organization [facility] Address [address] [place] [address] Phone [phone] Care Team Providers Care Stem Roller Or Crusher Operator Name Role Phone Kristie Franks MD Primary Care Prov ider Reason for Visit * Reason Onset Date Comments Med Request 10/08/2024 Encounter Details Date Type Department Care Team (Late st Contact Info) Description 10/08/2024 Telephone Family Medicine [address] [phone] Kristie Franks MD [address] [place] [address] [place] [address] Med Request Allergies Active Allergy Reactions [...] unspecified CKD stage, unspecified whether termite exterminator helper insulin use (HCC) Test once Daily [...] mRNA, LNP-s, No Pre serve, 2-Dose Series (AltSchool) 05/01/2021 COVID-19, MRNA-LNP, PF, 30 M CG/0.3 mL, 12 YRS AND ABOVE, IM (PFIZER-Comirnaty) 07/18/2023 Pneumococcal Conjugate Vacci ne, 20-valent (Tsarans92) 04/29/2023 Seasonal Influenza Vac., MDV , IM, [...] script * Telephone Encounter - Bucky Givens, DYNAMITE RECLAIMER - 10/08/2024 3:46 PM EST Did you pend patient's preferred pharmacy and medication before forwarding?yes Pharmacy: E [facility] #[id number][facility] [id number] [facility] Pending Prescriptions: Disp Refills traZODone HCl 100 [...] AM * Telephone Encounter - Nuha Hu hackler doll wigs - 10/08/2024 2:01 PM EST Patient calling on Status of Trazodone 100 mg. States pharmacy is [facility] in [place]. Patient can be reached at [phone] Thank you, Nuha Hu Shear Setter I [facility] Clinical Pharmacy Services ([facility]PS) 10/08/2024,2:02 PM * Telephone Encounter - Justyna Carpenter hackler doll wigs - 10/08/2024 1:50 PM EST Patient is out of med. The following medication is listed as discontinued as of 07/05/2024, due to "None" please review and approve if appropriate. Trazodone 100mg Patient said that she's been taking three tablets every night. Justyna Krishnamurthy German Instructor II Central[facility] Clinical Pharmacy Services 10/08/2024 1:54 PM documented in this encounter Plan of Treatment Upcoming Encounters Date Type Department Care Team (Late st Contact Info) Description 11/04/2024 10:00 AM EST Office Visit Audiology [facility] 132 [facility] [place] [address] Kaitlin Mcintyre Au.D. 132 [facility] [place] [address] 12/08/2024 10:00 AM EDT Office Visit Cardiology, [facility] 132 [facility] [place] [address] Selena Villanueva CRNP [address] [place] [address] 01/19/2025 11:40 AM EDT Office Visit Family [address] [phone] Kristie Franks MD [address] [place] [address] [place] [address] 01/25/2025 3:40 PM EDT Office Visit Neurology [facility] 200 [place] [address] Otilio Bee MD 100 [place], [place] [phone] 03/16/2025 1:00 PM EDT Office Visit Family Medicine [address] [phone] Kristie Franks MD [address] [place] [address] [place] [address] Scheduled Procedures Name Priority Associated Diagnoses Date/Ti [...] 02/09/2024, 03/0 04/2023 CKD HGB USE SMARTSET 52421 02/08/202502/08, 01/26/2021, 01/20/2021, Additional history exists GFR 03/29/2025 09/29/2024, 06/0 11/2023, 04/29/2023, Additional history exists HbA1c 03/29/2025 09/29/2024, 06/0 11/2023, 04/29/2023, Additional history exists Depression Monitoring 04/12/2025 04/12/2024 O2 ASSESSMENT COMPLETED IN PAST YEAR FOR COPD 07/28/2025 07/28/2024 CKD PHOS USE SMARTSET 47648 09/29/2025 09/29/2024, 0 10/05/1997 Diabetic Foot Exam [...] filedocumented as of this encounter Care Teams Stem Roller Or Crusher Operator Relationship Specialty Start Date End Date Kristie Franks MD [address] [place] [address] [place] [address] PCP - General Family Medicine 11/18/22 documented as of this encounter
--- OUTSIDE RECORDS SUMMARY | 2024-12-06 20:55 | External Medical Summary | Summary of Care ---
Author Name Unknown Organization [facility] Address [address] [place] [address] Phone [phone] Care Team Providers Care Loan Workout Officer Name Role Phone Kristie Franks MD Primary Care Prov ider Reason for Visit * Reason Onset Date Comments Hearing Aid Question/problem 10/04/2024 Encounter Details Date Type Department Care Team (Late st Contact Info) Description 10/04/2024 Telephone Audiology [facility] [address] [address] Services, Scheduling [address] [place] [address] Hearing Aid Question/problem Allergies Active Allergy Reactions Criticality Noted Date Comments Latex 04/04/2009 Penicillins Low 03/24/2023 "It makes my bottom sore" documented as of this encounter (statuses as of 10/07/2024) Medications Escitalopram Oxalate 20 MG Oral Tablet (Lexapro) Take 1 Tablet by mouth in the morning. 09/28/19 Active Austedo 12 MG Oral Tablet Take 2 Tablets by mouth in the morning and 2 Tablets before bedtime. 10/29/19 23 Active OneTouch UltraSoft LancetsIndications: Type 2 diabetes mellitus with diabetic chronic kidney disease, unspecified CKD stage, unspecified whether intermediate insulin use (HCC) Test once Daily [...] as of this encounter (statuses as of 10/07/2024) Active Problems Problem Noted Date Diagnosed Date [...] as of this encounter (statuses as of 10/07/2024) Resolved Problems Problem Noted Date Diagnosed Date Resolved Date Alzheimer's disease, unspecified (CODE) 02/09/2024 04/07/2024 Type 2 diabetes mellitus wit h diabetic chronic kidney disease 11/13/2022 02/09/2024 Malignant neoplasm of uterus 11/04/2019 09/29/2024 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 documented as of this encounter (statuses as of 10/07/2024) Immunizations Name Administration Dates Next Due COVID-19 mRNA, LNP-s, No Pre serve, 2-Dose Series ([employer]) 05/01/2021 COVID-19, MRNA-LNP, PF, 30 M CG/0.3 mL, 12 YRS AND ABOVE, IM (PFIZER-Comirnaty) 07/18/2023 Pneumococcal Conjugate Vacci ne, 20-valent ([id number]) 04/29/2023 Seasonal Influenza Vac., MDV , IM, [...] if her hearing aids are ready for pepper picker Please call her back Thank you jazmine documented in this encounter Plan of Treatment Upcoming Encounters Date Type Department Care Team (Late st Contact Info) Description 10/12/2024 9:00 AM EST Office Visit Audiology [facility] 132 [facility] [place] [address] Kaitlin Mcintyre Au.D. 132 [facility] [place] [address] 12/08/2024 10:00 AM EDT Office Visit Cardiology, [facility] 132 [facility] [place] [address] Selena Villanueva CRNP [address] [place] [address] 01/19/2025 11:40 AM EDT Office Visit Family Medicine [address] [phone] Kristie Franks MD [address] [place] [address] [place] [address] 01/25/2025 3:40 PM EDT Office Visit Neurology [facility] 200 [place] [address] Otilio Bee MD 100 [place], [place] [phone] 03/16/2025 1:00 PM EDT Office Visit Family Medicine [address] [phone] Kristie Franks MD [address] [place] [address] [place] Jaram[place] [phone] Scheduled Procedures Name Priority Associated Diagnoses Date/Ti [...] 02/09/2024, 03/0 04/2023 CKD HGB USE SMARTSET 37899 02/08/202502/08, 01/26/2021, 01/20/2021, Additional history exists GFR 03/29/2025 09/29/2024, 06/0 11/2023, 04/29/2023, Additional history exists HbA1c 03/29/2025 09/29/2024, 06/0 11/2023, 04/29/2023, Additional history exists Depression Monitoring 04/12/2025 04/12/2024 O2 ASSESSMENT COMPLETED IN PAST YEAR FOR COPD 07/28/2025 07/28/2024 CKD PHOS USE SMARTSET 47700 09/29/2025 09/29/2024, 0 10/05/1997 Diabetic Foot Exam [...] filedocumented as of this encounter Care Teams Loan Workout Officer Relationship Specialty Start Date End Date Kristie Franks MD [address] [place] [address] [place] [address] PCP - General Family Medicine 11/18/22 documented as of this encounter
--- OUTSIDE RECORDS SUMMARY | 2024-12-06 20:55 | External Medical Summary | Summary of Care ---
Author Name Unknown Organization [facility] Address [address] [facility] [place] [address] Phone [phone] Care Team Providers Care Family Specialist Name Role Phone Kristie Franks MD Primary Care Prov ider Encounter Details Date Type Department Care Team (Late st Contact Info) Description 10/05/[address] [facility] [address] [place] [address] Kaitlin Mcintyre AuNena [address] [place] [address] Allergies Active Allergy Reactions Criticality Noted Date Comments Latex 04/04/2009 Penicillins Low 03/24/2023 "It makes my bottom sore" documented as of this encounter (statuses as of 10/13/2024) Medications Escitalopram Oxalate 20 MG Oral Tablet (Lexapro) Take 1 Tablet by mouth in the morning. 09/28/19 23 Active Austedo 12 MG Oral Tablet Take 2 Tablets by mouth in the morning and 2 Tablets before bedtime. 10/29/19 23 Active OneTouch UltraSoft LancetsIndications: Type 2 diabetes mellitus with diabetic chronic kidney disease, unspecified CKD stage, unspecified whether fdc insulin use (HCC) Test once Daily Dx [...] as of this encounter (statuses as of 10/13/2024) Active Problems Problem Noted Date Diagnosed Date [...] as of this encounter (statuses as of 10/13/2024) Resolved Problems Problem Noted Date Diagnosed Date Resolved Date Alzheimer's disease, unspecified (CODE) 02/09/2024 04/07/2024 Type 2 diabetes mellitus wit h diabetic chronic kidney disease 11/13/2022 02/09/2024 Malignant neoplasm of uterus 11/04/2019 09/29/2024 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 documented as of this encounter (statuses as of 10/13/2024) Immunizations Name Administration Dates Next Due COVID-19 mRNA, LNP-s, No Pre serve, 2-Dose Series (Linq3) 05/01/2021 COVID-19, MRNA-LNP, PF, 30 M CG/0.3 mL, 12 YRS AND ABOVE, IM ([facility]) 07/18/2023 Pneumococcal Conjugate Vacci ne, 20-valent ([email or web address]) 04/29/2023 Seasonal Influenza Vac., MDV , IM, [...] for ages 0-17 years) Not on file 08 / Food Insecurity Answer Date Recorded Do you [...] encounter Miscellaneous Notes * Telephone Encounter - Prem Hubbard CMA - 10/12/2024 2:21 PM EST Patient returned call and state that she wanted to know her copay for hearing aids, I informed patient that her hearing aids will be at $0 cost to her as insurance will cover the cost of her hearing aids per Kaitlin Patel. * Telephone Encounter - Ashli Theodore LPN - 10/06/2024 1:19 PM EST Pt returning call, relayed message to pt. Pt ok with using insurance benefits for her hearing aids.Pt seemed confused stated she did not pick any hearing aids out and asked what kinds she could get. Kaitlin, I scheduled this patient an appt on 10/12 with you because of this.. but if hearing aids were already chosen just needs ordered then I can reschedule her. * Telephone Encounter - Ashli Theodore LPN - 10/05/2024 9:48 AM EST LMOM for pt to return call. Called to inform pt Rekha Morton PA-C states she is medically cleared for hearing aids. Can Patcher needs to know if pt wants to use her insurance benefits to order hearing aids, $0 cost to pt. Will need appt scheduled 2-4 weeks out with Audiology. Can transfer callto [phone] for me to discuss this with her further. documented in this encounter Plan of Treatment Upcoming Encounters Date Type Department Care Team (Late st Contact Info) Description 10/19/2024 9:00 AM EST Office Visit Audiology [facility] 132 [place] [address] Kaitlin Mcintyre Au.D. 132 [facility] [place] [address] 12/08/2024 10:00 AM EDT Office Visit Cardiology, [facility] 132 [place] [address] Selena Villanueva CRNP [address] [place] [address] 01/19/2025 11:40 AM EDT Office Visit Family [address] [phone] Kristie Franks MD [address] [place] [address] [place] [address] 01/25/2025 3:40 PM EDT Office Visit Neurology [facility] 200 [place] [address] Otilio Bee MD 100 [place], [place] [phone] 03/16/2025 1:00 PM EDT Office Visit Family Medicine [address] [phone] Kristie Franks MD [address] [place] [address] [place] Jaram[place] [address] Scheduled Procedures Name Priority [...] 02/09/2024, 03/0 04/2023 CKD HGB USE SMARTSET 56901 02/08/202502/08, 01/26/2021, 01/20/2021, Additional history exists GFR 03/29/2025 09/29/2024, 06/0 11/2023, 04/29/2023, Additional history exists HbA1c 03/29/2025 09/29/2024, 06/0 11/2023, 04/29/2023, Additional history exists Depression Monitoring 04/12/2025 04/12/2024 O2 ASSESSMENT COMPLETED IN PAST YEAR FOR COPD 07/28/2025 07/28/2024 CKD PHOS USE SMARTSET 67183 09/29/2025 09/29/2024, 0 10/05/1997 Diabetic Foot Exam [...] filedocumented as of this encounter Care Teams Family Specialist Relationship Specialty Start Date End Date Kristie Franks MD [address] [place] [address] [place] [address] PCP - General Family Medicine 11/18/22 documented as of this encounter
--- OUTSIDE RECORDS SUMMARY | 2024-12-06 20:55 | External Medical Summary | Summary of Care ---
Author Name Unknown Organization [facility] Address [address] [place] [address] Phone [phone] Care Team Providers Care Car Hiker Name Role Phone Kristie Franks MD Primary Care Prov ider Reason for Visit * Reason Onset Date Comments Med Request 10/08/2024 Encounter Details Date Type Department Care Team (Late st Contact Info) Description 10/08/2024 Telephone Family Medicine [address] [phone] Kristie Franks MD [address] [place] [address] [place] [address] Med Request Allergies Active Allergy Reactions Criticality Noted Date Comments Latex 04/04/2009 Penicillins Low 03/24/2023 "It makes my bottom sore" documented as of this encounter (statuses as of 10/19/2024) Medications Escitalopram Oxalate 20 MG Oral Tablet (Lexapro) Take 1 Tablet by mouth in the morning. 09/28/19 Active Austedo 12 MG Oral Tablet Take 2 Tablets by mouth in the morning and 2 Tablets before bedtime. 10/29/19 23 Active OneTouch UltraSoft LancetsIndications: Type 2 diabetes mellitus with diabetic chronic kidney disease, unspecified CKD stage, unspecified whether supervisor long goods insulin use (HCC) Test once Daily Dx [...] as of this encounter (statuses as of 10/19/2024) Active Problems Problem Noted Date Diagnosed Date [...] as of this encounter (statuses as of 10/19/2024) Resolved Problems Problem Noted Date Diagnosed Date Resolved Date Alzheimer's disease, unspecified (CODE) 02/09/2024 04/07/2024 Type 2 diabetes mellitus wit h diabetic chronic kidney disease 11/13/2022 02/09/2024 Malignant neoplasm of uterus 11/04/2019 09/29/2024 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 documented as of this encounter (statuses as of 10/19/2024) Immunizations Name Administration Dates Next Due COVID-19 mRNA, LNP-s, No Pre serve, 2-Dose Series ([employer]) 05/01/2021 COVID-19, MRNA-LNP, PF, 30 M CG/0.3 mL, 12 YRS AND ABOVE, IM (PFIZER-Comirnaty) 07/18/2023 Pneumococcal Conjugate Vacci ne, 20-valent ([id number]) 04/29/2023 Seasonal Influenza Vac., MDV , IM, [...] new script * Telephone Encounter - Bucky Givens MECHANICAL ASSEMBLY TECHNICIAN - 10/08/2024 3:46 PM EST Did you pend patient's preferred pharmacy and medication before forwarding?yes Pharmacy: [id number] [address] [facility] Pending Prescriptions: Disp Refills traZODone HCl [...] AM * Telephone Encounter - Nuha Hu powder line repairer - 10/08/2024 2:01 PM EST Patient calling on Status of Trazodone 100 mg. States pharmacy is [facility] in [place]. Patient can be reached at [phone] Thank you, Nuha Hu Loan Associate I [facility] 10/08/2024,2:02 PM * Telephone Encounter - Justyna Carpenter PHARM Tech - 10/08/2024 1:50 PM EST Patient is out of med. The following medication is listed as discontinued as of 07/05/2024, due to "None" please review and approve if appropriate. Trazodone 100mg Patient said that she's been taking three tablets every night. Justyna Krishnamurthy Licensing Registration Examiner II [facility] 10/08/2024 1:54 PM documented in this encounter Plan of Treatment Upcoming Encounters Date Type Department Care Team (Late st Contact Info) Description 11/04/2024 10:00 AM EST Office Visit Audiology [facility] [address] [address] Kaitlin Mcintyre Au.D. [address] [place] [place] [address] 12/08/2024 10:00 AM EDT Office Visit Cardiology, [facility] [address] [address] Selena Villanueva CRNP [address] [place] [address] 01/19/2025 11:40 AM EDT Office Visit Family [address] [phone] Kristie Franks MD [address] [place] [address] [place] [address] 01/25/2025 3:40 PM EDT Office Visit Neurology [facility] [address] [place] [address] Otilio Bee MD [address] [place] [address] 03/16/2025 1:00 PM EDT Office Visit [address] [phone] Kristie Franks MD [address] [place] [address] [place] [address] Scheduled Procedures Name Priority Associated Diagnoses Date/Ti [...] 02/09/2024, 03/0 04/2023 CKD HGB USE SMARTSET 11439 02/08/202502/08, 01/26/2021, 01/20/2021, Additional history exists GFR 03/29/2025 09/29/2024, 06/0 11/2023, 04/29/2023, Additional history exists HbA1c 03/29/2025 09/29/2024, 06/0 11/2023, 04/29/2023, Additional history exists Depression Monitoring 04/12/2025 04/12/2024 O2 ASSESSMENT COMPLETED IN PAST YEAR FOR COPD 07/28/2025 07/28/2024 CKD PHOS USE SMARTSET 82141 09/29/2025 09/29/2024, 0 10/05/1997 Diabetic Foot Exam [...] filedocumented as of this encounter Care Teams Car Hiker Relationship Specialty Start Date End Date Kristie Franks MD [address] [place] [address] [place] [address] PCP - General Family Medicine 11/18/22 documented as of this encounter
--- OUTSIDE RECORDS SUMMARY | 2024-12-06 20:56 | External Medical Summary | Summary of Care ---
Author Name Unknown Organization [facility] Address [address] [place] [address] Phone [phone] Care Team Providers Care Computer Systems Information Director Name Role Phone Kristie Franks MD Primary Care Prov ider Reason for Visit * Reason Onset Date Comments Advice 10/01/2024 Drivers license Encounter Details Date Type Department Care Team (Late st Contact Info) Description 10/01/2024 Telephone Family Medicine [address] [phone] Kristie Franks MD [address] [place] [phone] Advice (Drivers license) Allergies Active Allergy Reactions Criticality Noted Date [...] mRNA, LNP-s, No Pre serve, 2-Dose Series ([employer]) 05/01/2021 COVID-19, MRNA-LNP, PF, 30 M CG/0.3 mL, 12 YRS AND ABOVE, IM (Quickcue-Comirnat) 07/18/2023 Pneumococcal Conjugate Vacci ne, 20-valent ([id number]) 04/29/2023 Seasonal Influenza Vac., MDV , IM, [...] Telephone Encounter - Kristie Franks MD - 10/04/2024 8:49 AM EST Noted * Telephone Encounter - Heike Ralph OSA - 10/02/2024 2:42 PM EST Pt called to let pcp know that she would like to not move forward with trying to get her license back at this time. Thank you. * Telephone Encounter - Carol Tinoco CMA - 10/01/2024 4:21 PM EST See message From office note 09/09/24 "Driving Safety She expressed desire to regain driving privileges. History of blackouts and current use of pain medication pose safety concerns. -Advise against driving due to safety concerns related to health issues and medication use. -If she insists on driving, require clearance from neurologist and psychiatrist, and cessation of pain medication. " Called and re-advised pt of info above, asked if she wanted to do all that and she states she is agreeable to all stipulations. Pended Neurology and Psychiatry referral * Telephone Encounter - Cyndi Ospina OSA - 10/01/2024 9:47 AM EST Patient called asking to speak to her provider regarding her drivers license wants to get it back. documented in this encounter Plan of Treatment Upcoming Encounters Date Type Department Care Team (Late st Contact Info) Description 12/08/2024 10:00 AM EDT Office Visit Cardiology, [facility] [place] [address] Selena Villanueva CRNP 400 [place] [address] 01/19/2025 11:40 AM EDT Office Visit Family Medicine [address] [phone] Kristie Franks MD [address] [place] [address] [place] [address] 01/25/2025 3:40 PM EDT Office Visit Neurology [facility] 200 [place] [address] Otilio Bee MD 100 [place] [address] 03/16/2025 1:00 PM EDT Office Visit Family Medicine [address] [phone] Kristie Franks MD [address] [place] [address] [place] [phone] Scheduled Procedures Name Priority Associated Diagnoses Date/Ti [...] 02/09/2024, 03/0 04/2023 CKD HGB USE SMARTSET 73073 02/08/202502/08, 01/26/2021, 01/20/2021, Additional history exists GFR 03/29/2025 09/29/2024, 06/0 11/2023, 04/29/2023, Additional history exists HbA1c 03/29/2025 09/29/2024, 06/0 11/2023, 04/29/2023, Additional history exists Depression Monitoring 04/12/2025 04/12/2024 O2 ASSESSMENT COMPLETED IN PAST YEAR FOR COPD 07/28/2025 07/28/2024 CKD PHOS USE SMARTSET 15429 09/29/2025 09/29/2024, 0 10/05/1997 Diabetic Foot Exam [...] filedocumented as of this encounter Care Teams Computer Systems Information Director Relationship Specialty Start Date End Date Kristie Franks MD [address] [place] [address] [place] [phone] PCP - General Family Medicine 11/18/22 documented as of this encounter
--- OUTSIDE RECORDS SUMMARY | 2024-12-06 20:56 | External Medical Summary | Summary of Care ---
Author Name Unknown Organization [facility] Address [address] [place] [address] Phone [phone] Care Team Providers Care Plastic Sheeting Cutter Name Role Phone Kristie Franks MD Primary Care Prov ider Encounter Details Date Type Department Care Team (Late st Contact Info) Description 09/29/[address] [phone] Kristie Franks MD [address] [place] [address] [phone] Allergies Active Allergy Reactions Criticality Noted Date Comments Latex 04/04/2009 Penicillins Low 03/24/2023 "It makes my bottom sore" documented as of this encounter (statuses as of 09/29/2024) Medications Escitalopram Oxalate 20 MG Oral Tablet (Lexapro) Take 1 Tablet by mouth in the morning. 09/28/19 Active Austedo 12 MG Oral Tablet Take 2 Tablets by mouth in the morning and 2 Tablets before bedtime. 10/29/19 Active OneTouch UltraSoft LancetsIndications: Type 2 diabetes mellitus with diabetic chronic kidney disease, unspecified CKD stage, unspecified whether buttermaker insulin use (HCC) Test once Daily [...] as of this encounter (statuses as of 09/29/2024) Active Problems Problem Noted Date Diagnosed Date Parkinson's disease 09/29/2024 Major depressive disorder, single episode, moder ate 09/29/2024 Idiopathic cardiomyopathy 09/29/2024 Type 2 diabetes mellitus wit h diabetic chronic kidney disease 09/29/2024 Type 2 diabetes mellitus wit h [...] as of this encounter (statuses as of 09/29/2024) Resolved Problems Problem Noted Date Diagnosed Date Resolved Date Alzheimer's disease, unspecified (CODE) 02/09/2024 04/07/2024 Type 2 diabetes mellitus wit h diabetic chronic kidney disease 11/13/2022 02/09/2024 Malignant neoplasm of uterus 11/04/2019 09/29/2024 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 documented as of this encounter (statuses as of 09/29/2024) Immunizations Name Administration Dates Next Due COVID-19 mRNA, LNP-s, No Pre serve, 2-Dose Series ([employer]ilo) 05/01/2021 COVID-19, MRNA-LNP, PF, 30 M CG/0.3 mL, 12 YRS AND ABOVE, IM ([employer]-Comirnaty) 07/18/2023 Pneumococcal Conjugate Vacci ne, 20-valent ([id number]) 04/29/2023 Seasonal Influenza Vac., MDV , IM, [...] encounter Miscellaneous Notes * Telephone Encounter - Alesha Santillan LPN - 09/29/2024 4:42 PM EST Pt notified. * Telephone Encounter - Kristie Franks MD - 09/29/2024 4:29 PM EST Seen earlier today c/o cough. Nasal swab is negative for influenza. Rx doxycycline sent in. Please let her know. documented in this encounter Plan of Treatment Upcoming Encounters Date Type Department Care Team (Late st Contact Info) Description 09/30/2024 1:00 PM EST Imaging Radiology [address] [place] [address] 09/30/2024 2:30 PM EST Imaging Radiology [address] [place] [address] 10/04/2024 1:30 PM EST Office Visit Cardiology, [facility] 132 [facility] [place] [address] Selena Villanueva CRNP [address] [place] [address] [place] [address] 10/06/2024 1:30 PM EST Telemedicine [facility] [address] [place] [phone] Kaity Damian PA-C [address] [place] [address] 01/19/2025 11:40 AM EDT Office Visit Family Medicine [address] [phone] Kristie Franks MD [address] [place] [address] [place] [address] 01/25/2025 3:40 PM EDT Office Visit Neurology [facility] [place] [address] Otilio Bee MD [address] [place] [address] 03/16/2025 1:00 PM EDT Office Visit Family [address] [phone] Kristie Franks MD [address] [place] [address] [place] [address] Scheduled Procedures Name Priority Associated Diagnoses Date/Ti me COLONOSCOPY FLEXIBLE PROXIMA L DIAGNOSTIC Recall Special screening for malignant neoplasms, colon Health Maintenance Due Date Last Done Comments Alpha-1 Antitrypsin 02/04/1968 Cologuard 1995 Fecal Occult Blood Test 1995 Sigmoidoscopy 1995 CKD PHOS USE SMARTSET 43845 10/05/1998 10/05/1997 Zoster Vaccines (1 of 2) 02/04/2000 Adult Wellness Visit 02/04/2016 DTap/Tdap Vaccines (2 - Td or Tdap) 02/28/2018 02/29/2008 COVID-19 Vaccine ( season) 2024 07/18/2023, 05/01/2021 Diabetic Eye Exam 07/18/2024 07/18/2023, , 01/15/2012 GFR 08/10/2024 02/09/2024, 04/09, 11/13/2022, Additional history exists *COPD SEVERITY VERIFIED BY PFT 09/19/2024 *SPIROMETRY ONCE FOR ASTHMA-ADULT 09/19/2024 Mammogram 11/13/2024 11/14/2023, 03/0 04/2024, 11/12/2022, Additional history exists Albumin/Creatinine Ratio 02/08/2025 02/09/2024, 03/0 04/2023 CKD HGB USE SMARTSET 03406 02/08/202502/08, 01/26/2021, 01/20/2021, Additional history exists HbA1c 03/29/2025 09/29/2024, 060 11/2023, 04/29/2023, Additional history exists Depression Monitoring 04/12/2025 04/12/2024 O2 ASSESSMENT COMPLETED IN PAST YEAR FOR COPD 07/28/2025 07/28/2024 Diabetic Foot Exam 09/29/2025 09/29/2024, 04/29/2023 DXA [...] as of this encounter Visit Diagnoses Diagnosis Acute cough- Primary documented in this encounter Care Teams Plastic Sheeting Cutter Relationship Specialty Start Date End Date Kristie Franks MD [address] [place] [address] [place] [address] PCP - General Family Medicine 11/18/22 documented as of this encounter
--- OUTSIDE RECORDS SUMMARY | 2024-12-06 20:56 | External Medical Summary | Summary of Care ---
Author Name Unknown Organization [facility] Address [address] [place] [address] Phone [phone] Care Team Providers Care Emergency Communications Dispatcher Name Role Phone Kristie Franks MD Primary Care Prov ider Encounter Details Date Type Department Care Team (Late st Contact Info) Description 09/29/2024 Referral Triage Care Coordination and Integration [address] [place] [address] Kathryn Pereyra, JULIO C [address] [place], [place] [phone] Allergies Active Allergy Reactions Criticality Noted Date [...] or chew. 50 Capsule 1 09/29/19 Active documented as of this encounter (statuses [...] (PFIZER-Comirnaty) 07/18/2023 Pneumococcal Conjugate Vacci ne, 20-valent ([id number]) 04/29/2023 Seasonal Influenza Vac., MDV , IM, [...] as of this encounter Progress Notes * Kathryn Pereyra OSA - 09/29/2024 9:46 AM EST Order Questions Question Answer Referral Priority Within 10 days (routine) Where should this appointment be scheduled? [facility] Role Shampoo Assistant Shampoo Assistant Referral Reason Frail Elderly Referred to Alejandra Rodriguez documented in this encounter Plan of Treatment Upcoming Encounters Date Type Department Care Team (Late st Contact Info) Description 09/30/2024 1:00 PM EST Imaging Radiology [address] [place] [address] 09/30/2024 2:30 PM EST Imaging Radiology [address] [place] [address] 10/04/2024 1:30 PM EST Office Visit Cardiology, [facility] 132 [facility] [place] [address] Selena Villanueva CRNP [address] [place] [address] [place] [address] 10/06/2024 1:30 PM EST Telemedicine Interventional [facility] 132 [facility] [place] [phone] Kaity Damian PA-C 132 [facility] [place] [address] 01/25/2025 3:40 PM EDT Office Visit Neurology [facility] [place] [address] [place] [address] Otilio Bee MD [address] [place] [address] 03/16/2025 1:00 PM EDT Office Visit Family Medicine [address] [phone] Kristie Franks MD [address] [place] [address] [place] [address] Scheduled Procedures Name Priority Associated Diagnoses Date/Ti me COLONOSCOPY FLEXIBLE PROXIMA L DIAGNOSTIC Recall Special screening for malignant neoplasms, colon Health Maintenance Due Date Last Done Comments Alpha-1 Antitrypsin 02/04/1968 Cologuard 1995 Fecal Occult Blood Test 1995 Sigmoidoscopy 1995 CKD PHOS USE SMARTSET 18775 10/05/1998 10/05/1997 Zoster Vaccines (1 of 2) 02/04/2000 Adult Wellness Visit 02/04/2016 DTap/Tdap Vaccines (2 - Td or Tdap) 02/28/2018 02/29/2008 COVID-19 Vaccine (3 - season) 2024 07/18/2023, 05/01/2021 Diabetic Eye Exam 07/18/2024 07/18/2023, , 01/15/2012 GFR 08/10/2024 02/09/2024, 04/09, 11/13/2022, Additional history exists HbA1c 08/10/2024 02/09/2024, 04/09, 11/13/2022, Additional history exists *COPD SEVERITY VERIFIED BY PFT 09/19/2024 *SPIROMETRY ONCE FOR ASTHMA-ADULT 09/19/2024 Mammogram 11/13/2024 11/14/2023, 04/2024, 11/12/2022, Additional history exists Albumin/Creatinine Ratio 02/08/2025 02/09/2024, 04/2023 CKD HGB USE SMARTSET 27161 02/08/202502/08, 01/26/2021, 01/20/2021, Additional history exists Depression Monitoring 04/12/2025 04/12/2024 [...] filedocumented as of this encounter Care Teams Emergency Communications Dispatcher Relationship Specialty Start Date End Date Kristie Franks MD [address] [place] [address] [place] [address] PCP - General Family Medicine 11/18/22 documented as of this encounter
--- OUTSIDE RECORDS SUMMARY | 2024-12-06 20:56 | External Medical Summary | Summary of Care ---
Author Name Unknown Organization [facility] Address [address] [place] [address] Phone [phone] Care Team Providers Care Restorative Rehab Aide Name Role Phone Kristie Franks MD Primary Care Prov ider Reason for Visit * Reason Onset Date Comments Hearing Aid Question/problem 10/04/2024 Encounter Details Date Type Department Care Team (Late st Contact Info) Description 10/04/2024 Telephone Audiology [facility] [address] [place] [address] Services, Scheduling [address] [place] [address] Hearing Aid Question/problem Allergies Active Allergy Reactions [...] kidney disease, unspecified CKD stage, unspecified whether keno terminal operator insulin use (HCC) Test once Daily Dx E11.9 100 Each 3 01/21/20 Active OLANZapine 10 MG Oral Tablet (zyPREXA) TAKE ONE TABLET BY MOUTH DAILY 45 Tablet 11/20/20 23 Active Additional Information Patient not taking.Reported [...] mRNA, LNP-s, No Pre serve, 2-Dose Series ([employer]) 05/01/2021 COVID-19, MRNA-LNP, PF, 30 M CG/0.3 mL, 12 YRS AND ABOVE, IM (PFIZER-Comirnaty) 07/18/2023 Pneumococcal Conjugate Vacci ne, 20-valent ([id number]) 04/29/2023 Seasonal Influenza Vac., MDV , IM, [...] encounter Miscellaneous Notes * Telephone Encounter - Zhao Hernandez - No Ob/Or, JULIO C - 10/04/2024 1:09 PM EST Chante is calling to see if her hearing aids are ready for picker packer Please call her back Thank you zhao documented in this encounter Plan of Treatment Upcoming Encounters Date Type Department Care Team (Late st Contact Info) Description 12/08/2024 10:00 AM EDT Office Visit Cardiology, [facility] 132 [place] [address] Selena Villanueva CRNP 400 [place] [address] 01/19/2025 11:40 AM EDT Office Visit Family Medicine [address] [place] [phone] Kristie Franks MD [address] [place] [address] [place] [address] 01/25/2025 3:40 PM EDT Office Visit Neurology [facility] 200 [place] [address] Otilio Bee MD [address] [place] [address] 03/16/2025 1:00 PM EDT Office Visit Family Medicine [address] [place] [phone] Kristie Franks MD [address] [place] [address] [place] [address] Scheduled Procedures Name Priority Associated Diagnoses Date/Ti [...] 02/09/2024, 03/0 04/2023 CKD HGB USE SMARTSET 02093 02/08/202502/08, 01/26/2021, 01/20/2021, Additional history exists GFR 03/29/2025 09/29/2024, 06/0 11/2023, 04/29/2023, Additional history exists HbA1c 03/29/2025 09/29/2024, 06/0 11/2023, 04/29/2023, Additional history exists Depression Monitoring 04/12/2025 04/12/2024 O2 ASSESSMENT COMPLETED IN PAST YEAR FOR COPD 07/28/2025 07/28/2024 CKD PHOS USE SMARTSET 26500 09/29/2025 09/29/2024, 0 10/05/1997 Diabetic Foot Exam [...] filedocumented as of this encounter Care Teams Restorative Rehab Aide Relationship Specialty Start Date End Date Kristie Franks MD [address] [place] [address] [place] [phone] PCP - General Family Medicine 11/18/22 documented as of this encounter
--- OUTSIDE RECORDS SUMMARY | 2024-12-06 20:56 | External Medical Summary | Summary of Care ---
Author Name Unknown Organization [facility] Address [address] [place] [address] Phone [phone] Care Team Providers Care Supervisor Knitting Name Role Phone Kristie Franks MD Primary Care Prov ider Reason for Visit * Reason Comments Outpatient Testing Encounter Details Date Type Department Care Team (Late st Contact Info) Description 09/29/2024 9:30 AM EST Laboratory Laboratory [address] [place] [phone] [place] [address] Type 2 diabetes mellitus with hemoglobin A1c goal of less than 7.0% (HCC); Idiopathic cardiomyopathy (HCC); Type 2 diabetes mellitus with stage 3a chronic kidney disease, without long-term current use of insulin (HCC); Neuroleptic-induced parkinsonism (HCC); Hyperlipidemia with target LDL less than 70; Restless legs syndrome Allergies Active Allergy Reactions Criticality Noted Date [...] disease, unspecified CKD stage, unspecified whether terminal operator insulin use (HCC) Test once [...] at bedtime. 30 Tablet 5 07/05/20 Active Pramipexole Dihydrochloride 0.5 MG Oral Tablet [...] mRNA, LNP-s, No Pre serve, 2-Dose Series (Abaxia) 05/01/2021 COVID-19, MRNA-LNP, PF, 30 M CG/0.3 mL, 12 YRS AND ABOVE, IM (PFIZER-Comirnaty) 07/18/2023 Pneumococcal Conjugate Vacci ne, 20-valent ([id number]) 04/29/2023 Seasonal Influenza Vac., MDV , IM, [...] on file documented as of this encounter Plan of Treatment Upcoming Encounters Date Type Department Care Team (Late st Contact Info) Description 09/30/2024 1:00 PM EST Imaging Radiology [address] [place] [address] 09/30/2024 2:30 PM EST Imaging Radiology [address] [place] [address] 10/04/2024 1:30 PM EST Office Visit Cardiology, [facility] [address] [place] [address] Selena Villanueva CRNP [address] [place] [address] [place] [address] 10/06/2024 1:30 PM EST Telemedicine [facility] [address] [place] [phone] Kaity Damian PA-C [address] [place] [address] 01/25/2025 3:40 PM EDT Office Visit Neurology [facility] [address] [facility] [place] [address] Otilio Bee MD [address] [place] [address] 03/16/2025 1:00 PM EDT Office Visit Family [address] [phone] Kristie Franks MD [address] [place] [address] [place] [address] Pending Results Name Type Priority Associated Diagnoses Date /Time COMPREHENSIVE METABOLIC PANEL Lab Routine Type 2 diabetes mellitus with hemoglobin A1c goal of less than 7.0% (HCC) Idiopathic cardiomyopathy (HCC) Type 2 diabetes mellitus with stage 3a chronic kidney disease, without long-term current use of insulin (HCC) Neuroleptic-induced parkinsonism (HCC) Hyperlipidemia with target LDL less than 70 Restless legs syndrome 09/29/2024 9:23 AM EST LIPID PANEL WITH DIRECT LDL IF TG IS HIGH Lab Routine Hyperlipidemia with target LDL less than 70 09/29/2024 9:23 AM EST HEMOGLOBIN A1C Lab Routine Type 2 diabetes mellitus with hemoglobin A1c goal of less than 7.0% (HCC) 09/29/2024 9:23 AM EST PHOSPHORUS Lab Routine Type 2 diabetes mellitus with stage 3a chronic kidney disease, without long-term current use of insulin (HCC) 09/29/2024 9:23 AM EST Scheduled Procedures Name Priority Associated Diagnoses Date/Ti me COLONOSCOPY FLEXIBLE PROXIMA L DIAGNOSTIC Recall Special screening for malignant neoplasms, colon Health Maintenance Due Date Last Done Comments Alpha-1 Antitrypsin 02/04/1968 Cologuard 1995 Fecal Occult Blood Test 1995 Sigmoidoscopy 1995 CKD PHOS USE SMARTSET 46062 10/05/1998 10/05/1997 Zoster Vaccines (1 of 2) [...] Additional history exists Albumin/Creatinine Ratio 02/08/2025 02/09/2024, 030 04/2023 CKD HGB USE SMARTSET 49613 02/08/202502/08, 01/26/2021, 01/20/2021, Additional history exists Depression [...] as of this encounter Visit Diagnoses Diagnosis Type 2 diabetes mellitus with hemoglobin A1c goal of less than 7.0% (HCC) Idiopathic cardiomyopathy (HCC) Other primary cardiomyopathies Type 2 diabetes mellitus with stage 3a chronic kidney disease, without long-term current use of insulin (HCC) Neuroleptic-induced parkinsonism (HCC) Secondary Parkinsonism Hyperlipidemia with target LDL less than 70 Other and unspecified hyperlipidemia Restless legs syndrome Restless legs syndrome (RLS) documented in this encounter Care Teams Supervisor Knitting Relationship Specialty Start Date End Date Kristie Franks MD [address] [place] [address] [place] [address] PCP - General Family Medicine 11/18/22 documented as of this encounter
--- OUTSIDE RECORDS SUMMARY | 2024-12-06 20:56 | External Medical Summary | Summary of Care ---
Author Name Unknown Organization [facility] Address [address] [place] [address] Phone [phone] Care Team Providers Care Ram Press Operator Name Role Phone Kristie Franks MD Primary Care Prov ider Reason for Visit * Reason Onset Date Comments Hearing Aid Question/problem 10/04/2024 Encounter Details Date Type Department Care Team (Late st Contact Info) Description 10/04/2024 Telephone Audiology [facility] [address] [place] [address] Services, Scheduling [address] [place] [address] Hearing Aid Question/problem Allergies Active Allergy Reactions [...] disease, unspecified CKD stage, unspecified whether long chain quiller tender insulin use (HCC) Test once Daily Dx [...] mRNA, LNP-s, No Pre serve, 2-Dose Series (Soufun) 05/01/2021 COVID-19, MRNA-LNP, PF, 30 M CG/0.3 mL, 12 YRS AND ABOVE, IM (PFIZER-Comirnaty) 07/18/2023 Pneumococcal Conjugate Vacci ne, 20-valent ([id number]) 04/29/2023 Seasonal Influenza Vac., MDV , IM, [...] encounter Miscellaneous Notes * Telephone Encounter - Merced Goodwin LPN - 10/04/2024 1:27 PM EST Once medical clearance has been given from Rekha Morton PA-C after reviewing the imaging that pt had done on 09/30/24, then Kaitlin will be able to move fwd with the hearing aids. * Telephone Encounter - Zhao Hernandez - No Ob/Or, JULIO C - 10/04/2024 1:09 PM EST Chante is calling to see if her hearing aids are ready for picking supervisor Please call her back Thank you zhao documented in this encounter Plan of Treatment Upcoming Encounters Date Type Department Care Team (Late st Contact Info) Description 12/08/2024 10:00 AM EDT Office Visit Cardiology, [facility] [address] [place] [address] Selena Villanueva CRNP [address] [facility] [place] [address] 01/19/2025 11:40 AM EDT Office Visit Family Medicine [address] [phone] Kristie Franks MD [address] [place] [address] [place] [address] 01/25/2025 3:40 PM EDT Office Visit Neurology [facility] [address] [place] [address] Otilio Bee MD [address] [place] [address] 03/16/2025 1:00 PM EDT Office Visit Family Medicine [address] [phone] Kristie Franks MD [address] [place] [address] [place] [address] Scheduled Procedures Name Priority Associated Diagnoses Date/Ti [...] 02/08/2025 02/09/2024, 04/2023 CKD HGB USE SMARTSET 69499 02/08/202502/08, 01/26/2021, 01/20/2021, Additional history exists GFR 03/29/2025 09/29/2024, 06/0 11/2023, 04/29/2023, Additional history exists HbA1c 03/29/2025 09/29/2024, 06/0 11/2023, 04/29/2023, Additional history exists Depression Monitoring 04/12/2025 04/12/2024 O2 ASSESSMENT COMPLETED IN PAST YEAR FOR COPD 07/28/2025 07/28/2024 CKD PHOS USE SMARTSET 19473 09/29/2025 09/29/2024, 0 10/05/1997 Diabetic Foot Exam [...] filedocumented as of this encounter Care Teams Ram Press Operator Relationship Specialty Start Date End Date Kristie Franks MD [address] [place] [address] [place] [address] PCP - General Family Medicine 11/18/22 documented as of this encounter
--- OUTSIDE RECORDS SUMMARY | 2024-12-06 20:56 | External Medical Summary | Summary of Care ---
Author Name Unknown Organization [facility] Address [address] [place] [address] Phone [phone] Care Team Providers Care Patient Sitter Name Role Phone Kristie Franks MD Primary Care Prov ider Reason for Referral * Social Care (Within 10 days (routine)) - Authorized Specialty Diagnoses / Procedures Referred By Contac t Referred To Contact Gaming Floor Supervisor Diagnoses Generalized osteoarthritis Kristie Franks MD [address] [place] [address] [place] [address] Phone: tel: fax: Referral ID Status Reason Start Date Expiration Date Visits Requested Visits Authorized [id number] Authorized Specialty Services Required 09/29/[phone] Question Answer Referral Priority Within 10 days (routine) Where should this appointment be scheduled? [facility] Role Derrick Boat Runner Derrick Boat Runner Referral Reason Frail Elderly Comments Please assist patient with Meals on Wheels or similar Is patient being transitioned from [facility] to Complex Case Management? No Reason for Visit * Reason Comments Physical-Exam Encounter Details Date Type Department Care Team (Latest Contact Info) Description 09/29/2024 8:40 AM EST Office Visit Family Medicine [address] [place] [phone] Kristie Franks MD [address] [place] [address] [place] [address] Type 2 diabetes mellitus with hemoglobin A1c goal of less than 7.0% (HCC)*; Parkinsonism, unspecified Parkinsonism type ([facility]); Bipolar affective disorder, remission status unspecified ([facility]); Current moderate episode of major depressive disorder, unspecified whether recurrent ([facility]); Idiopathic cardiomyopathy ([facility]); Type 2 diabetes mellitus with diabetic chronic kidney disease, unspecified CKD stage, unspecified whether terminal system operator insulin use ([facility]); Type 2 diabetes mellitus with stage 3a chronic kidney disease, without long-term current use of insulin ([facility]); Neuroleptic-induced parkinsonism ([facility]); HTN, goal below 140/90; Hyperlipidemia with target LDL less than 70; Pulmonary emphysema, unspecified emphysema type ([facility]); Restless legs syndrome; GENERAL OSTEOARTHROSIS; Acute cough [...] kidney disease, unspecified CKD stage, unspecified whether fci insulin use ([facility]) Test once Daily Dx E11.9 100 Each [...] mRNA, LNP-s, No Pre serve, 2-Dose Series (GERS) 05/01/2021 COVID-19, MRNA-LNP, PF, 30 M CG/0.3 mL, 12 YRS AND ABOVE, IM (PFIZER-[facility]) 07/18/2023 Pneumococcal Conjugate Vacci ne, 20-valent ([id number]) 04/29/2023 Seasonal Influenza Vac., MDV , IM, [...] Progress Notes * Kristie Franks MD - 09/29/2024 8:51 AM EST Images [...] 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 -Refer to rn case manager hospice for meal delivery service setup. Chronic Pain [...] and psychiatrist, and cessation of pain medication. Follow-up in 3 months to assess overall health status and effectiveness of interventions. Type 2 diabetes mellitus with hemoglobin A1c goal of less than 7.0% ([facility]) (Primary) - DIABETES FOOT EXAM - COMPREHENSIVE METABOLIC PANEL; Future; Expected date: 09/29/2024 - HEMOGLOBIN A1C; Future; Expected date: 09/29/2024 Parkinsonism, unspecified Parkinsonism type ([facility]) Bipolar affective disorder, remission status unspecified ([facility]) Current moderate episode of major depressive disorder, unspecified whether recurrent ([facility]) Idiopathic cardiomyopathy ([facility]) - COMPREHENSIVE METABOLIC PANEL; Future; Expected date: 09/29/2024 Type 2 diabetes mellitus with diabetic chronic kidney disease, unspecified CKD stage, unspecified whether fci insulin use ([facility]) Type 2 diabetes mellitus with stage 3a [...] Covid Vaccine Pt states she needs a funeral limousine driver Physical, but caregiver states she does not documented in this encounter Plan of Treatment Upcoming Encounters Date Type Department Care Team (Late st Contact Info) Description 09/30/2024 1:00 PM EST Imaging Radiology [address] [place] [address] 09/30/2024 2:30 PM EST Imaging Radiology [address] [place] [address] 10/04/2024 1:30 PM EST Office Visit Cardiology, [facility] [address] [facility] [place] [address] Selena Villanueva CRNP [address] [place] [address] [place] [address] 10/06/2024 1:30 PM EST Telemedicine Interventional [facility] Center [facility] [address] [place] [phone] Kaity Damian PA-C [address] [place] [address] 01/25/2025 3:40 PM EDT Office Visit Neurology [facility] [address] [place] [address] [facility] [address] [facility] [address] 03/16/2025 1:00 PM EDT Office Visit [address] [phone] Kristie Franks MD [address] [place] [address] [place] [address] Pending Results Name Type Priority Associated Diagnoses Date /Time COMPREHENSIVE METABOLIC PANEL Lab Routine Type 2 diabetes mellitus with hemoglobin A1c goal of less than 7.0% ([facility]) Idiopathic cardiomyopathy (HCC) Type 2 diabetes mellitus with stage 3a chronic kidney disease, without long-term current use of insulin ([facility]) Neuroleptic-induced parkinsonism ([facility]) Hyperlipidemia with target LDL less than 70 [...] of insulin (HCC) 09/29/2024 9:23 AM EST INFLUENZA A/B RSV SARS-COV2,PCR Lab Routine Acute cough 09/29/2024 9:19 AM EST Scheduled Orders Name Type Priority Associated Diagnoses Orde r Schedule COMPREHENSIVE METABOLIC PANEL Lab Routine Type 2 diabetes mellitus with hemoglobin A1c goal of less than 7.0% (HCC) Idiopathic cardiomyopathy (HCC) Type 2 diabetes mellitus with stage 3a chronic kidney disease, without long-term current use of insulin (HCC) Neuroleptic-induced parkinsonism (HCC) Hyperlipidemia with target LDL less than 70 Restless legs syndrome Expected: 09/29/2024 (Approximate), Expires: 09/29/2025 LIPID PANEL WITH DIRECT LDL IF TG IS HIGH Lab Routine Hyperlipidemia with target LDL less than 70 Expected: 09/29/2024, Expires: 09/29/2025 HEMOGLOBIN A1C Lab Routine Type 2 diabetes mellitus with hemoglobin A1c goal of less than 7.0% (HCC) Expected: 09/29/2024 (Approximate), Expires: 09/29/2025 PAIN MANAGEMENT DRUG PANEL, URINE W/ INTERPRETATION Lab Routine GENERAL OSTEOARTHROSIS Expected: 09/29/2024 (Approximate), Expires: 09/29/2025 PHOSPHORUS Lab Routine Type 2 diabetes mellitus with stage 3a chronic kidney disease, without long-term current use of insulin (HCC) Expected: 09/29/2024 (Approximate), Expires: 09/29/2025 INFLUENZA A/B RSV SARS-COV2,PCR Lab Routine Acute cough Expected: 09/29/2024 (Approximate), Expires: 09/29/2025 Scheduled Procedures Name Priority Associated Diagnoses Date/Ti [...] 1995 Sigmoidoscopy 1995 CKD PHOS USE SMARTSET 12494 10/05/1998 10/05/1997 Zoster Vaccines (1 of 2) [...] 02/08/2025 02/09/2024, 04/2023 CKD HGB USE SMARTSET 96509 02/08/202502/08, 01/26/2021, 01/20/2021, Additional history exists Depression [...] disease, unspecified CKD stage, unspecified whether terminal system operator insulin use (HCC) Type 2 diabetes mellitus [...] cough documented in this encounter Care Teams Patient Sitter Relationship Specialty Start Date End Date Kristie Franks MD [address] [place] [address] [place] [address] PCP - General Family Medicine 11/18/22 documented as of this encounter
--- OUTSIDE RECORDS SUMMARY | 2024-12-06 20:56 | External Medical Summary | Summary of Care ---
Author Name Unknown Organization [facility] Address [address] [place] [address] Phone [phone] Care Team Providers Care Superintendent Pressure Name Role Phone Kristie Franks MD Primary Care Prov ider Reason for Referral * Evaluate & Treat - Unlimited Visits (Within 10 days (routine)) - Pending Review Specialty Diagnoses / Procedures Referred By Toni hoffman Referred To Contact Neurology Diagnoses Tremors of nervous system History of CVA (cerebrovascular accident) Bipolar affective disorder in remission (HCC) Kristie Franks MD [address] [place] [address] [place] [address] Phone: tel: fax: Referral ID Status Reason Start Date Expiration Date Visits Requested Visits Authorized [id number] Pending Review Specialty Services Required [phone] Question Answer Referral Priority Within 10 days (routine) Where should this appointment be scheduled? [facility] Is this referral being placed for insurance purposes ONLY No, patient needs appointment [facility] NEUROLOGY REFERRAL QUESTIONS Movement Reason for Visit * Reason Onset Date Comments Referral 07/19/2024 Encounter Details Date Type Department Care Team (Late st Contact Info) Description 07/19/2024 Telephone Family Medicine [address] [phone] Kristie Franks MD [address] [place] [address] [place] [address] Referral Allergies Active Allergy Reactions Criticality Noted Date Comments Latex 04/04/2009 Penicillins Low 03/24/2023 "It makes my bottom sore" documented as of this encounter (statuses as of 10/04/2024) Medications Escitalopram Oxalate 20 MG Oral Tablet (Lexapro) Take 1 Tablet by mouth in the morning. Active Austedo 12 MG Oral Tablet Take 2 Tablets by mouth in the morning and 2 Tablets before bedtime. 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 90 Tablet 1 024 Active metFORMIN HCl ER 500 MG Oral [...] 1 Tablet before bedtime. 180 Tablet 3 024 Active Polyethylene Glycol 3350 17 GM/SCOOP Oral [...] ns:Hyperlipidemia with target LDL less than 70 Take 1 Tablet by mouth in the morning. 90 Tablet 1 024 2024 Discontinued Pramipexole Dihydrochloride 0.5 MG Oral Tablet (Mirapex) Take 1 Tablet by mouth at bedtime. 90 Tablet 1 024 2023 Discontinued(R efill) oxyCODONE-Acetamin ophen 10-325 MG Oral TabletIndications: Disc disorder of lumbar region,Chronic pain syndrome,Chronic right-sided low back pain with right-sided sciatica Take 1 Tablet by mouth in the morning and 1 Tablet in the evening. 20 Tablet 2023 Discontinued(R efill) documented as of this encounter [...] (PFIZER-Comirnaty) 07/18/2023 Pneumococcal Conjugate Vacci ne, 20-valent ([id number]) 04/29/2023 Seasonal Influenza Vac., MDV , IM, [...] encounter Miscellaneous Notes * Telephone Encounter - Karthik Michelle OSA - 10/04/2024 1:09 PM EST I spoke to daughter Merced. She stated to keep the SP appt due to taking [employer]. I told Merced if she changes her mind to let us know. * Telephone Encounter - Capri Pugh OSA - 09/15/2024 2:14 PM EST I left message on patient's VM to call me (RE: Neurology appt in [place], does she still want appt since she is scheduled at [facility]). * Telephone Encounter - Elizabeth Yap RN - 07/26/2024 4:45 PM EST Genia, this patient wants to see Neurology in [place].,( If she plans on taking [employer], she will have to contact them to see if they will go that far) [facility] Neurology ph [phone], fax [phone] * Telephone Encounter - Kristie Franks MD - 07/26/2024 4:41 PM EST She should see neurology first and ask if this device might be of benefit. * Telephone Encounter - Elizabeth Yap RN - 07/26/2024 4:[address] Prem Arellano is a Neurosurgeon specializing in Movement disorders, is this ok? Or do you still want her to see Neurology first? * Telephone Encounter - Kristie Franks MD - 07/22/2024 2:04 PM EST Please refer to last visit note. I am not sure if her tremors are related to parkinsons, essential tremors or a medication side effect. We discussed whether she was under the care of neurology, and she told me her psychiatrist managed her tremors/ medication for tremors. This is usually evaluated and managed by a neurologist, and I do think she should see a neurologistif she is agreeable. It is up to her whether she wants to see [facility] neurology ([place]) or if [facility] prefers to see a neurologist in [place]. Please explain this to her and schedule neurology. * Telephone Encounter - Mami Ramsey OSA - 07/21/2024 11:35 AM EST Patient calling again to see if she has parkinson's. * Telephone Encounter - Jennifer Epstein OSA - 07/21/2024 11:07 AM EST Pt called asking for a referral for surgery be sent to Dr. Faustino Weathers in [place]. Pt was recommended by a friend about getting an implant for the shakes that she has. Pt states that the phone number for the provider is [phone]. Please advise. * Telephone Encounter - Rekha Titus OSA - 07/19/2024 2:04 PM EST Call from patient who is calling to ask if she has Parkinson's because her right arm and chin shakes a lot. She heard there is a hospital in [place] to go where they put something in your brain tohelp control the shaking. Asking if PCP knows where this is and if she would be a candidate for it? documented in this encounter Plan of Treatment Upcoming Encounters Date Type Department Care Team (Late st Contact Info) Description 12/08/2024 10:00 AM EDT Office Visit Cardiology, [facility] [address] [facility] [place] [address] Selena Villanueva CRNP [address] [place] [address] 01/19/2025 11:40 AM EDT Office Visit Family Medicine [address] [place] [phone] Kristie Franks MD [address] [place] [address] [place] [address] 01/25/2025 3:40 PM EDT Office Visit Neurology [facility] [place] [address] Otilio Bee MD [address] [place] [address] 03/16/2025 1:00 PM EDT Office Visit Family Medicine [address] [phone] Kristie Franks MD [address] [place] [address] [place] [address] Scheduled Procedures Name Priority Associated Diagnoses Date/Ti me COLONOSCOPY FLEXIBLE PROXIMA L DIAGNOSTIC Recall Special screening for malignant neoplasms, colon Scheduled Referrals Name Type Priority Associated Diagnoses Orde r Schedule ADULT NEUROLOGY REFERRAL OP Referral Within 10 days (routine) Tremors of nervous system History of CVA (cerebrovascular accident) Bipolar affective disorder in remission (HCC) Ordered: 07/22/2024 Health Maintenance Due Date Last Done Comments [...] 02/09/2024, 03/0 04/2023 CKD HGB USE SMARTSET 04888 02/08/202502/08, 01/26/2021, 01/20/2021, Additional history exists GFR 03/29/2025 09/29/2024, 06/0 11/2023, 04/29/2023, Additional history exists HbA1c 03/29/2025 09/29/2024, 06/0 11/2023, 04/29/2023, Additional history exists Depression Monitoring 04/12/2025 04/12/2024 O2 ASSESSMENT COMPLETED IN PAST YEAR FOR COPD 07/28/2025 07/28/2024 CKD PHOS USE SMARTSET 81959 09/29/2025 09/29/2024, 0 10/05/1997 Diabetic Foot Exam [...] as of this encounter Visit Diagnoses Diagnosis Tremors of nervous system- Primary Abnormal involuntary movements History of CVA (cerebrovascular accident) Transient ischemic attack (TIA), and cerebral infarction without residual deficits Bipolar affective disorder in remission (HCC) 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
--- OUTSIDE RECORDS SUMMARY | 2024-12-06 20:56 | External Medical Summary | Summary of Care ---
Author Name Unknown Organization [facility] Address [address] [place] [address] Phone [phone] Care Team Providers Care Industrial Maintenance Mechanic Name Role Phone Romeo Franks MD Primary Care Prov ider Reason for Referral * Social Care (Within 10 days (routine)) - Authorized Specialty Diagnoses / Procedures Referred By Contac t Referred To Contact Machine Spring Former Diagnoses Generalized osteoarthritis Romeo Franks MD [address] [place] [address] [place] [address] Phone: tel: fax: Referral ID Status Reason Start Date Expiration Date Visits Requested Visits Authorized [id number] Authorized Specialty Services Required 09/29/[phone] Question Answer Referral Priority Within 10 days (routine) Where should this appointment be scheduled? [facility] Role Millinery Worker Millinery Worker Referral Reason Frail Elderly Comments Please assist patient with Meals on Wheels or similar Is patient being transitioned from [facility] to Complex Case Management? No Reason for Visit * Reason Comments Physical-Exam Encounter Details Date Type Department Care Team (Latest Contact Info) Description 09/29/2024 8:40 AM EST Office Visit Family Medicine [address] [place] [phone] Romeo Franks MD [address] [place] [address] [place] [address] Type 2 diabetes mellitus with hemoglobin A1c goal of less than 7.0% (HCC)*; Parkinsonism, unspecified Parkinsonism type ([facility]); Bipolar affective disorder, remission status unspecified ([facility]); Current moderate episode of major depressive disorder, unspecified whether recurrent ([facility]); Idiopathic cardiomyopathy ([facility]); Type 2 diabetes mellitus with diabetic chronic kidney disease, unspecified CKD stage, unspecified whether long goods drier insulin use ([facility]); Type 2 diabetes mellitus with stage 3a chronic kidney disease, without long-term current use of insulin ([facility]); Neuroleptic-induced parkinsonism ([facility]); HTN, goal below 140/90; Hyperlipidemia with target LDL less than 70; Pulmonary emphysema, unspecified emphysema type ([facility]); Restless legs syndrome; GENERAL OSTEOARTHROSIS; Acute cough Allergies Active Allergy Reactions Criticality Noted Date Comments Latex 04/04/2009 Penicillins Low 03/24/2023 "It makes my bottom sore" documented as of this encounter (statuses as of 10/01/2024) Medications Escitalopram Oxalate 20 MG Oral Tablet (Lexapro) Take 1 Tablet by mouth in the morning. 09/28/19 23 Active Austedo 12 MG Oral Tablet Take 2 Tablets by mouth in the morning and 2 Tablets before bedtime. 10/29/19 23 Active OneTouch UltraSoft LancetsIndications: Type 2 diabetes mellitus with diabetic chronic kidney disease, unspecified CKD stage, unspecified whether nursing home insulin use ([facility] [...] as of this encounter (statuses as of 10/01/2024) Active Problems Problem Noted Date Diagnosed Date [...] as of this encounter (statuses as of 10/01/2024) Resolved Problems Problem Noted Date Diagnosed Date Resolved Date Alzheimer's disease, unspecified (CODE) 02/09/2024 04/07/2024 Type 2 diabetes mellitus wit h diabetic chronic kidney disease 11/13/2022 02/09/2024 Malignant neoplasm of uterus 11/04/2019 09/29/2024 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 -Refer to classification case manager for meal delivery service setup. Chronic Pain [...] hemoglobin A1c goal of less than 7.0% ([facility]) (Primary) - DIABETES FOOT EXAM - COMPREHENSIVE METABOLIC PANEL; Future; Expected date: 09/29/2024 - HEMOGLOBIN A1C; Future; Expected date: 09/29/2024 Parkinsonism, unspecified Parkinsonism type ([facility]) Bipolar affective disorder, remission status unspecified ([facility]) Current moderate episode of major depressive disorder, unspecified whether recurrent ([facility]) Idiopathic cardiomyopathy ([facility]) - COMPREHENSIVE METABOLIC PANEL; Future; Expected date: 09/29/2024 Type 2 diabetes mellitus with diabetic chronic kidney disease, unspecified CKD stage, unspecified whether long goods drier insulin use ([facility]) Type 2 diabetes mellitus with stage 3a chronic kidney disease, without long-term current use of insulin ([facility]) - COMPREHENSIVE METABOLIC PANEL; Future; Expected date: [...] in this note was generated using an [employer] documentation service. I discussed the use of [...] Covid Vaccine Pt states she needs a freight delivery driver Physical, but caregiver states she does not documented in this encounter Miscellaneous Notes * Addendum Note - Romeo Franks MD - 10/01/2024 10:25 AM EST Addended by: ROMEO GAGE on: 10/01/2024 10:25 AM Modules accepted: Orders documented in this encounter Plan of Treatment Upcoming Encounters Date Type Department Care Team (Late st Contact Info) Description 10/05/2024 11:00 AM EST Office Visit Cardiology, [address] [place] [address] Selena Villanueva CRNP [address] [place] [address] [place] [address] 10/06/2024 1:30 PM EST Telemedicine Interventional Pain Center [facility] [address] [place] [address] Kaity Damian PA-C [address] [facility] [place] [address] 01/19/2025 11:40 AM EDT Office Visit Family Medicine [address] [phone] Romeo Franks MD [address] [place] [address] [place] [address] 01/25/2025 3:40 PM EDT Office Visit Neurology [facility] [address] [facility] [place] [address] Otilio Bee MD [address] [place] [address] 03/16/2025 1:00 PM EDT Office Visit Family Medicine [address] [phone] Romeo Franks MD [address] [place] [address] [place] [address] Pending Results Name Type Priority Associated Diagnoses Date /Time PAIN MANAGEMENT DRUG PANEL, URINE W/ INTERPRETATION Lab Routine GENERAL OSTEOARTHROSIS 09/29/2024 10:34 AM EST Scheduled Orders Name Type Priority [...] 02/09/2024, 03/0 04/2023 CKD HGB USE SMARTSET 89024 02/08/202502/08, 01/26/2021, 01/20/2021, Additional history exists GFR 03/29/2025 09/29/2024, 06/0 11/2023, 04/29/2023, Additional history exists HbA1c 03/29/2025 09/29/2024, 06/0 11/2023, 04/29/2023, Additional history exists Depression Monitoring 04/12/2025 04/12/2024 O2 ASSESSMENT COMPLETED IN PAST YEAR FOR COPD 07/28/2025 07/28/2024 CKD PHOS USE SMARTSET 24677 09/29/2025 09/29/2024, 0 10/05/1997 Diabetic Foot Exam [...] cough documented in this encounter Results * PHOSPHORUS (09/29/2024 9:23 AM EST) Phosphorus 3.7 2.5 - 4.8 mg/dL 09/30/2024 12:12 AM EST LABORATORY [facility] Blood Venous blood specimen / Unknown Venipuncture / Unknown 09/29/2024 9:23 AM EST 09/29/2024 9:24 AM EST Romeo Harvey MD LAB BLOOD ORDERABL ES Final Result LABORATORY [facility] [address] [place] [address] * HEMOGLOBIN A1C (09/29/2024 9:23 AM EST) Hemoglobin A1C 5.4 4.0 - 5.6 % 09/29/2024 3:20 PM EST LAB[facility]ATORY [facility] Comment:The use of HbA1c to monitor glycemic status is based on normal hemoglobin and HbA composition. This test should not be used in patients with abnormal hemoglobin that affects the half life of the red blood cell or the in vivo glycation rates. Estimated Average Glucose 108 <126 mg/dL 09/29/2024 3:20 PM EST LABORATORY [facility] Blood Venous blood specimen / Unknown Venipuncture / Unknown 09/29/2024 9:23 AM EST 09/29/2024 9:24 AM EST Romeo Harvey MD LAB BLOOD ORDERABL ES Final Result LABORATORY [facility] [address] [place] [address] * LIPID PANEL WITH DIRECT LDL IF TG IS HIGH (09/29/2024 9:23 AM EST) Triglycerides 89 <=174 mg/dL 09/30/2024 12:12 AM EST LAB[facility]ORY [facility] Comment: Triglyceride Reference Ranges (mg/dL): <150 Acceptable 150-174 Borderline high 175-499 High >=500 Very high Cholesterol 156 <200 mg/dL 09/30/2024 12:12 AM EST LAB[facility]ORY [facility] Comment: Total Cholesterol Reference Ranges (mg/dL): <200 Desirable 200-239 Borderline high >=240 High HDL Cholesterol 61 >49 mg/dL 12:12 AM EST LAB[facility]ATORY [facility] Comment: HDL Cholesterol Reference Ranges (mg/dL): >=60 High (Desirable) <50 Low (Undesirable) For Females <40 Low (Undesirable) For Males Non-HDL Cholesterol 95 <=159 mg/dL 09/30/2024 12:12 AM EST LAB[facility]ATORY [facility] Comment: Non-HDL Cholesterol Reference Range (mg/dL): <100 Target level for high risk ASCVD patient <130 Optimal for general population 130-159 Near optimal for general population 160-189 Borderline High 190-219 High >=220 Very High LDL Cholesterol 77 <=129 mg/dL 09/30/2024 12:12 AM EST LAB[facility]ORY [facility] Comment: LDL Cholesterol Reference Ranges (mg/dL): <70 Target level for high risk ASCVD patient <100 Optimal for general population 100-129 Near optimal for general population 130-159 Borderline high 160-189 High >=190 Very high Blood Venous blood specimen / Unknown Venipuncture / Unknown 09/29/2024 9:23 AM EST 09/29/2024 9:24 AM EST us Romeo Harvey MD LAB BLOOD ORDERABL ES Final Result LAB[facility]ATORY [facility] [address] [place] [address] * (ABNORMAL) COMPREHENSIVE METABOLIC PANEL (09/29/2024 9:23 AM EST) BUN 14 6 - 20 mg/dL 09/30/2024 12:12 AM EST LABORATORY [facility] CREATININE 1.2(H) 0.5 - 1.0 mg/dL 09/30/2024 12:12 AM EST LABORATORY [facility] EGFR 47(L) >=60 mL/min 09/30/2024 12:12 AM EST LAB[facility]ORY [facility] Comment:eGFR is calculated b ased on the CKD-EPI 2020 equation. SODIUM 138 135 - 146 mmol/L 09/30/2024 12:12 AM EST [facility] POTASSIUM 4.3 3.5 - 5.1 mmol/L 09/30/2024 12:12 AM EST [facility] CHLORIDE 101 98 - 107 mmol/L 09/30/2024 12:12 AM EST LABORATORY C CO2 27 22 - 32 mmol/L 09/30/2024 12:12 AM EST LABORATORY C ANION GAP 10 7 - 15 mmol/L 09/30/2024 12:12 AM EST [facility] GLUCOSE 91 70 - 120 mg/dL 09/30/2024 12:12 AM EST [facility] Albumin 4.3 3.8 - 5.0 g/dL 09/30/2024 12:12 AM EST [facility] AST 18 10 - 35 U/L 09/30/2024 12:12 AM EST [facility] Alkaline Phosphatase 71 35 - 130 U/L 09/30/2024 12:12 AM EST LABORATORY C Bilirubin, Total 0.4 <=1.2 mg/dL 09/30/2024 12:12 AM EST [facility] CALCIUM 9.8 8.4 - 10.2 mg/dL 09/30/2024 12:12 AM EST [facility] Protein 6.3 6.0 - 8.3 g/dL 09/30/2024 12:12 AM EST [facility] ALT 15 10 - 35 U/L 09/30/2024 12:12 AM EST [facility] Blood Venous blood specimen / Unknown Venipuncture / Unknown 09/29/2024 9:23 AM EST 09/29/2024 9:24 AM EST Romeo Harvey MD LAB BLOOD ORDERABL ES Final Result LAB[facility] [address] [place] [address] * INFLUENZA A/B RSV SARS-COV2,PCR (09/29/2024 9:19 AM EST) SARS-CoV-2 (COVID-19) Result Negative Negative 09/29/2024 2:05 PM EST LAB[facility]ORY [facility] Comment: No SARS-CoV2 Coronavirus RNA detected by PCR (amplified probe). This express test was developed and its performance characteristics determined by [facility]. It has not been cleared or approved [...] was developed and performance characteristics determined by [facility]. The validation of alternate specimen types has not been cleared or approved by the U.S. Food and Drug Administration (FDA). It has been determined that such clearance is not necessary. Influenza A PCR Result Negative Negative 09/29/2024 2:05 PM EST LAB[facility]ORY [facility] Comment:No Influenza A RNA d etected by PCR (amplified probe) Influenza B PCR Result Negative Negative 09/29/2024 2:05 PM EST LAB[facility] Comment:No Influenza B RNA d etected by PCR (amplified probe) RSV PCR Result Negative Negative 09/29/2024 2:05 PM EST LAB[facility]ORY [facility] Comment:No Respiratory Syncy tial Virus RNA detected by PCR (amplified probe) Upper Respiratory Nasopharyngeal swab / Unknown Non-blood Collection / Unknown 09/29/2024 9:19 AM EST 09/29/2024 9:19 AM EST Romeo Harvey MD LAB MICRO - GENERA L ORDERABLES Final Result [facility] [address] [place] [address] documented in this encounter Visit Diagnoses Diagnosis [...] disease, unspecified CKD stage, unspecified whether long goods drier insulin use (HCC) Type 2 diabetes mellitus [...] cough documented in this encounter Care Teams Industrial Maintenance Mechanic Relationship Specialty Start Date End Date Romeo Franks MD [address] [place] [address] [place] [address] PCP - General Family Medicine 11/18/22 documented as of this encounter
--- OUTSIDE RECORDS SUMMARY | 2024-12-06 20:56 | External Medical Summary | Summary of Care ---
Author Name Unknown Organization [facility] Address [address] [place] [address] Phone [phone] Care Team Providers Care Bus Driver School Name Role Phone Kristie Franks MD Primary Care Prov ider Reason for Visit * Reason Onset Date Comments FYI 10/04/2024 Encounter Details Date Type Department Care Team (Late st Contact Info) Description 10/04/2024 Telephone Family Medicine [address] [phone] Kristie Franks MD [address] [place] [phone] FYI Allergies Active Allergy Reactions Criticality [...] kidney disease, unspecified CKD stage, unspecified whether remote computer terminal operator insulin use (HCC) Test once [...] mRNA, LNP-s, No Pre serve, 2-Dose Series ([employer]) 05/01/2021 COVID-19, MRNA-LNP, PF, 30 M CG/0.3 mL, 12 YRS AND ABOVE, IM (PFIZER-Comirnat) 07/18/2023 Pneumococcal Conjugate Vacci ne, 20-valent ([id number]) 04/29/2023 Seasonal Influenza Vac., MDV , IM, [...] Tinoco CMA - 10/04/2024 2:[address] notified in a different encounter * Telephone [...] 10:00 AM EDT Office Visit Cardiology, [facility] [address] [facility] [place] [address] Selena Villanueva CRNP [address] [place] [address] [place] [id number] 01/19/2025 11:40 AM EDT Office Visit Family Medicine [address] [phone] Kristie Franks MD [address] [place] [address] [place] [address] 01/25/2025 3:40 PM EDT Office Visit Neurology [facility] [place] [address] [place] [address] Otilio Bee MD [address] [place] [address] 03/16/2025 1:00 PM EDT Office Visit Family Medicine [address] [phone] Kristie Franks MD [address] [place] [address] [place] [address] Scheduled Procedures Name Priority Associated Diagnoses Date/Ti [...] 02/08/2025 02/09/2024, 04/2023 CKD HGB USE SMARTSET 86989 02/08/202502/08, 01/26/2021, 01/20/2021, Additional history exists GFR 03/29/2025 09/29/2024, 06/0 11/2023, 04/29/2023, Additional history exists HbA1c 03/29/2025 09/29/2024, 06/0 11/2023, 04/29/2023, Additional history exists Depression Monitoring 04/12/2025 04/12/2024 O2 ASSESSMENT COMPLETED IN PAST YEAR FOR COPD 07/28/2025 07/28/2024 CKD PHOS USE SMARTSET 79166 09/29/2025 09/29/2024, 0 10/05/1997 Diabetic Foot Exam [...] filedocumented as of this encounter Care Teams Bus Driver School Relationship Specialty Start Date End Date Kristie Franks MD [address] [place] [address] [place] [phone] PCP - General Family Medicine 11/18/22 documented as of this encounter
--- OUTSIDE RECORDS SUMMARY | 2024-12-06 20:56 | External Medical Summary | Summary of Care ---
Author Name Unknown Organization [facility] Address [address] [place] [address] Phone [phone] Care Team Providers Care Deckhand Oyster Dredge Name Role Phone Kristie Franks MD Primary Care Prov ider Reason for Visit * Reason Comments Outpatient Testing Encounter Details Date Type Department Care Team (Late st Contact Info) Description 09/29/2024 9:30 AM EST Laboratory Laboratory [address] [place] [phone] [place] [address] Type 2 diabetes mellitus with hemoglobin A1c goal of less than 7.0% (HCC); Idiopathic cardiomyopathy (HCC); Type 2 diabetes mellitus with stage 3a chronic kidney disease, without long-term current use of insulin (HCC); Neuroleptic-induced parkinsonism (HCC); Hyperlipidemia with target LDL less than 70; Restless legs syndrome; GENERAL OSTEOARTHROSIS Allergies Active Allergy Reactions Criticality [...] disease, unspecified CKD stage, unspecified whether termite treater insulin use (HCC) Test once Daily Dx [...] mouth at bedtime. 90 Tablet 1 08/02/20 Active oxyCODONE-Acetamino phen 10-325 MG Oral TabletIndications:D [...] mRNA, LNP-s, No Pre serve, 2-Dose Series ([employer]) 05/01/2021 COVID-19, MRNA-LNP, PF, 30 M CG/0.3 mL, 12 YRS AND ABOVE, IM (PFIZER-Comirnaty) 07/18/2023 Pneumococcal Conjugate Vacci ne, 20-valent ([id number]) 04/29/2023 Seasonal Influenza Vac., MDV , IM, [...] Description 09/30/2024 1:00 PM EST Imaging Radiology [address] [place] [address] 09/30/2024 2:30 PM EST Imaging Radiology [address] [place] [address] 10/04/2024 1:30 PM EST Office Visit Cardiology, [facility] [address] [place] [address] Selena Villanueva [address] [place] [address] 10/06/2024 1:30 PM EST Telemedicine Interventional Pain Center [facility] [address] [place] [phone] Kaity Damian PA-C [address] [place] [address] 01/25/2025 3:40 PM EDT Office Visit [facility] [place] [address] Otilio Bee MD [address] [place] [address] 03/16/2025 1:00 PM EDT Office Visit Family Medicine [address] [phone] Kristie Franks MD [address] [place] [address] [place] [address] Pending Results Name Type Priority Associated Diagnoses [...] of insulin (HCC) 09/29/2024 9:23 AM EST PAIN MANAGEMENT DRUG PANEL, URINE W/ INTERPRETATION Lab Routine GENERAL OSTEOARTHROSIS 09/29/2024 10:34 AM EST EXTRA URINE ALIQUOT Lab Routine GENERAL OSTEOARTHROSIS 09/29/2024 10:34 AM EST Scheduled Procedures Name Priority Associated Diagnoses Date/Ti me COLONOSCOPY FLEXIBLE PROXIMA L DIAGNOSTIC Recall Special screening for malignant neoplasms, colon Health Maintenance Due Date Last Done Comments Alpha-1 Antitrypsin 02/04/1968 Cologuard 1995 Fecal Occult Blood Test 1995 Sigmoidoscopy 1995 CKD PHOS USE SMARTSET 14595 10/05/1998 10/05/1997 Zoster Vaccines (1 of 2) [...] 02/09/2024, 03/0 04/2023 CKD HGB USE SMARTSET 74095 02/08/202502/08, 01/26/2021, 01/20/2021, Additional history exists Depression [...] (RLS) GENERAL OSTEOARTHROSIS Generalized osteoarthrosis, unspecified site documented in this encounter Care Teams Deckhand Oyster Dredge Relationship Specialty Start Date End Date Kristie Franks MD [address] [place] [address] [place] [address] PCP - General Family Medicine 11/18/22 documented as of this encounter
--- OUTSIDE RECORDS SUMMARY | 2024-12-06 20:57 | External Medical Summary ---
Author Name Unknown Address Unknown Organization [id number]:LABORATORY [facility] - [address] [facility] [address] Laboratory Report Ordering Provider Test Date Status JANE WALTERS 09/29/2024 09:23:19 Final Observation Date Value Abnormality Reference (Units ) Status HbA1C 09/29/2024 09:23:19 5.4 4.0-5.6 (% ) Final The use of HbA1c to monitor glycemic status is based on normal hemoglobin and HbA composition. This test should not be used in patients with abnormal hemoglobin that affects the half life of the red blood cell or the in vivo glycation rates. Glucose, estimated average 09/29/2024 09:23:19 108 <126 (mg/dL) Final Performing Location LABORATORY [facility] [address] [facility] [facility] [address]
--- OUTSIDE RECORDS SUMMARY | 2024-12-06 20:57 | External Medical Summary ---
Author Name Unknown Address Unknown Organization [id number]:LAB[facility]ATORY [facility] - [address] [facility] [address] Laboratory Report Ordering Provider Test Date Status JANE WALTERS 09/29/2024 09:19:20 Final Observation Date Value Abnormality Reference (Units ) Status SARS Coronavirus 2 09/29/2024 09:19:20 Negative N egative Final No SARS-CoV2 Coronavirus RNA detected by PCR (amplified probe).
This express test was developed and its performance characteristics determined by [facility]. It has not been cleared or approved [...] (RT-PCR) test, or a Centers for Disease Control-acceptable equivalent. The test is performed in a high complexity Clinical Laboratory Improvement Amendments-(CLIA) certified laboratory. The test is acceptable for SARS-CoV-2 diagnosis, surveillance, and travel within the [place] and to most countries. Please check with local testing authorities about requirements before travel.

The validation of bronchial specimens, tracheal aspirates, and sputum for this assay was developed and performance characteristics determined by [facility]. The validation of alternate specimen types has not been cleared or approved by the U.S. Food and Drug Administration (FDA). It has been determined that such clearance is not necessary. Influenza virus A RNA [Prese nce] in Specimen by ANNIE with probe detection 09/29/2024 09:19:20 Negative Negative Final No Influenza A RNA detected by PCR (amplified probe) Influenza virus B RNA [Prese nce] in Specimen by ANNIE with probe detection 09/29/2024 09:19:20 Negative Negative Final No Influenza B RNA detected by PCR (amplified probe) Respiratory syncytial virus RNA [Identifier] in Specimen by ANNIE with probe detection 09/29/2024 09:19:20 Negative Negative Final No Respiratory Syncytial Vir us RNA detected by PCR (amplified probe) Performing Location LABORATORY [place] [address] [facility] [address]
--- OUTSIDE RECORDS SUMMARY | 2024-12-06 20:57 | External Medical Summary ---
Author Name Unknown Address Unknown Organization [id number]:LABORATORY [facility] [place] - [facility] [address] Laboratory Report Ordering Provider Test Date Status JANE WALTERS 09/29/2024 10:34:51 Final Drugs that require complianc e testing:

Opioids:
Oxycodone: Quantity 5MG Date/Time of last Dose LAST NIGHT

Benzodiazepines
None

Cutoff Concentrations:
Drug Level
Amphetamine 50 ng/mL
Methamphetamine 50 ng/mL
Phentermine 50 ng/mL
Pseudoephedrine 50 ng/mL
MDMA/Ecstasy 50 ng/mL

This test was developed and its performance characteristics determined by [employer]. It has not been cleared or approved by the [place] Food and Drug Administration. Observation Date Value Abnormality Reference (Units ) Status METHODOLOGY 09/29/2024 10:34:51 LC-MS/MS Final Methamphetamine, Urine confirmatory 09/29/2024 10:34:51 Negative Negative Final Phentermine cutoff [Mass/volume] in Urine for Confirmatory method 09/29/2024 10:34:51 Negative Negative Final PSEUDOEPHEDRINE CONFIRMATION, U (CATEGORY) 09/29/2024 10:34:51 Negative Negative Final 6-Znqcwpkfkw-0,5-Dimethyl -3,3-Diphenylpyrrolidine (EDDP) [Mass/volume] in Urine by Confirmatory method 09/29/2024 10:34:51 Negative Negative Final Amphetamines, Urine screen 09/29/2024 10:34:51 Negative Negative Final Performing Location LABORATORY [facility] [place] - [facility] [address] [address] [facility] [facility] [address]
--- OUTSIDE RECORDS SUMMARY | 2024-12-06 20:57 | External Medical Summary | Summary of Care ---
Author Name Unknown Organization [facility] Address [address] [place] [address] Phone [phone] Care Team Providers Care Night Time Nanny Name Role Phone Kristie Franks MD Primary Care Prov ider Reason for Referral * Evaluate & Treat - Unlimited Visits (Within 10 days (routine)) - Pending Review Specialty Diagnoses / Procedures Referred By Contariel t Referred To Contact Neurology Diagnoses Tremors of nervous system History of CVA (cerebrovascular accident) Bipolar affective disorder in remission (HCC) Kristie Franks MD [address] [place] [address] [place] [address] Phone: tel: fax: Referral ID Status Reason Start Date Expiration Date Visits Requested Visits Authorized [id number] Pending Review Specialty Services Required [phone] Question Answer Referral Priority Within 10 days (routine) Where should this appointment be scheduled? [facility] Is this referral being placed for insurance purposes ONLY No, patient needs appointment [facility] REFERRAL QUESTIONS Movement Reason for Visit * Reason Onset Date Comments Referral 07/19/2024 Encounter Details Date Type Department Care Team ([facility] st Contact Info) Description 07/19/2024 Telephone Family Medicine [address] [place] [phone] Kristie Franks MD [address] [place] [address] [place] [address] Referral Allergies Active Allergy Reactions Criticality Noted Date Comments Latex 04/04/2009 Penicillins Low 03/24/2023 "It makes my bottom sore" documented as of this encounter (statuses as of 09/15/2024) Medications Escitalopram Oxalate 20 MG Oral Tablet [...] Additional Information Patient not taking.Reported on 09/07/2024 Rosuvastatin Calcium 20 MG Oral Tablet (Crestor)Indication s:Hyperlipidemia with target LDL less than 70 Take 1 Tablet by mouth in the morning. 90 Tablet 1 12/25/19 24 Active busPIRone HCl 10 MG Oral Tablet (Buspar) [...] at bedtime. 30 Tablet 5 07/05/20 Active Additional Information Patient not taking.Reported on 09/07/2024 Pramipexole Dihydrochloride 0.5 MG Oral Tablet (Mirapex) Take 1 Tablet by mouth at bedtime. 90 Tablet 1 04/07/20 024 Discontin ued(Refil l) oxyCODONE-Acetamino phen 10-325 MG Oral TabletIndications:D isc disorder of lumbar region,Chronic pain syndrome,Chronic right-sided low back pain with right-sided sciatica Take 1 Tablet by mouth in the morning and 1 Tablet in the evening. 20 Tablet 07/05/20 024 Discontin ued(Refil l) documented as of this encounter (statuses as of 09/15/2024) Active Problems Problem Noted Date Diagnosed Date History of CVA (cerebrovascular accident) 2023 Tremors of nervous system 07/05/2024 Drug induced constipation 07/05/2024 Spinal stenosis of lumbar re gion without neurogenic claudication 07/05/2024 Hyperlipidemia with target LDL less than 70 11/2023 Type 2 diabetes mellitus wit h hemoglobin A1c goal of less than 7.0% 11/07/2022 Obesity, Class I, BMI 30.0-34.9 (see actual [...] as of this encounter (statuses as of 09/15/2024) Resolved Problems Problem Noted Date Diagnosed Date Resolved Date Alzheimer's disease, unspecified (CODE) 02/09/2024 04/07/2024 Type 2 diabetes mellitus wit h diabetic chronic kidney disease 11/13/2022 02/09/2024 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 documented as of this encounter (statuses as of 09/15/2024) Immunizations Name Administration Dates Next Due COVID-19 mRNA, LNP-s, No Pre serve, 2-Dose Series ([facility]) 05/01/2021 COVID-19, MRNA-LNP, PF, 30 M CG/0.3 mL, 12 YRS AND ABOVE, IM ([facility]) 07/18/2023 Pneumococcal Conjugate Vacci ne, 20-valent ([id number]) 04/29/2023 Seasonal Influenza Vac., MDV , IM, [...] encounter Miscellaneous Notes * Telephone Encounter - Capri Pugh OSA - 09/15/2024 2:14 PM EST I left message on patient's VM to call me (RE: Neurology appt in [place], does she still want appt since she is scheduled at [facility]). * Telephone Encounter - Elizabeth Yap RN - 07/26/2024 4:45 PM EST Genia, this patient wants to see Neurology in [place].,( If she plans on taking [facility], she will have to contact them to see if they will go that far) [facility] Neurology ph [phone], fax [phone] * Telephone Encounter - Kristie Franks MD [...] to her whether she wants to see [facility] neurology ([place]) or if [facility] prefers to see a neurologist in [place]. Please explain this to her and schedule neurology. * Telephone Encounter - Mami Ramsey OSA - 07/21/2024 11:35 AM EST Patient calling again to see if she has parkinson's. * Telephone Encounter - Jennifer Epstein OSA - 07/21/2024 11:07 AM EST Pt called asking for a referral for surgery be sent to Dr. Faustino Weathers in [place]. Pt was recommended by a friend about getting an implant for the shakes that she has. Pt states that the phone number for the provider is [phone]. Please advise. * Telephone Encounter - Rekha Titus OSA - 07/19/2024 2:04 PM EST Call from patient who is calling to ask if she has Parkinson's because her right arm and chin shakes a lot. She heard there is a hospital in [place] to go where they put something in your brain tohelp control the shaking. Asking if PCP knows where this is and if she would be a candidate for it? documented in this encounter Plan of Treatment Upcoming Encounters Date Type Department Care Team (Late st Contact Info) Description 09/21/2024 1:00 PM EST Office Visit Otolaryngology [facility] [address] [address] Rekha Morton PA-C [address] [place] [address] 09/27/2024 2:30 PM EST Imaging Radiology [address] [place] [address] 10/04/2024 1:30 PM EST Office Visit Cardiology, [facility] [address] [place] [address] Selena Villanueva CRNP [address] [place] [address] [place] [address] 10/05/2024 2:00 PM EST Office Visit Family Medicine [address] [place] [phone] Lars Vidal [address] [place] [address] 10/06/2024 1:30 PM EST Telemedicine Interventional Pain Center [facility] [address] [place] [phone] Kaity Damian PA-C [address] [place] [address] 01/25/2025 3:40 PM EDT Office Visit [facility] [address] [facility] [address] Otilio Bee MD [address] [place] [address] 03/16/2025 1:00 PM EDT Office Visit Family Medicine [address] [place] [phone] Kristie Franks MD [address] [place] [address] [place] [address] Scheduled Procedures Name Priority Associated Diagnoses Date/Ti [...] (2 - Td or Tdap) 02/28/2018 02/29/2008 Diabetic Foot Exam 04/29/2024 04/29/2023 COVID-19 Vaccine (3 - season) 2024 07/18/2023, 05/01/2021 Diabetic Eye Exam 07/18/2024 07/18/2023, , 01/15/2012 HbA1c 08/10/2024 02/09/2024, 04/09, 11/13/2022, Additional history exists Mammogram 11/13/2024 11/14/2023, 03/0 04/2024, 11/12/2022, Additional history exists Albumin/Creatinine Ratio 02/08/2025 02/09/2024, 03/0 04/2023 GFR 02/08/2025 02/09/2024, 04/09, 11/13/2022, Additional history exists Depression Monitoring 04/12/2025 04/12/2024 Lipid Panel 02/08/2029 02/09/2024, 03/0 04/2023, 03/05/2011, Additional history exists DXA Scan 04/28/2030 04/28/2023 Colonoscopy 03/24/2033 03/24/2023, [...] disorder documented in this encounter Care Teams Night Time Nanny Relationship Specialty Start Date End Date Kristie Franks MD [address] [place] [address] [place] [phone] PCP - General Family Medicine 11/18/22 documented as of this encounter
--- OUTSIDE RECORDS SUMMARY | 2024-12-06 20:57 | External Medical Summary ---
Author Name Unknown Address Unknown Organization K01:[facility] [place] [address] [facility] [place] [address] Laboratory Report Ordering Provider Test Date Status JANE WALTERS 09/29/2024 09:23:19 Final Observation Date Value Abnormality Reference (Units ) Status BUN 09/29/2024 09:23:19 14 6-20 (mg/dL) Final Creatinine 09/29/2024 09:23:19 1.2 Above high normal 0.5-1.0 (mg/dL) Final Glomerular filtration rate/1.73 sq M.predicted [Volume Rate/Area] in Serum, Plasma or Blood by Creatinine-based formula (CKD-EPI) 09/29/2024 09:23:19 47 Below low normal >=60 (mL/min) Final eGFR is calculated based on the CKD-EPI 2020 equation. Sodium 09/29/2024 09:23:19 138 135-146 (m mol/L) Final Potassium 09/29/2024 09:23:19 4.3 3.5-5.1 (m mol/L) Final Cl 09/29/2024 09:23:19 101 98-107 (mm ol/L) Final CO2 09/29/2024 09:23:19 27 22-32 (mmo l/L) Final Anion gap 09/29/2024 09:23:19 10 7-15 (mmol /L) Final Glucose 09/29/2024 09:23:19 91 70-120 (mg /dL) Final Albumin 09/29/2024 09:23:19 4.3 3.8-5.0 (g /dL) Final AST (Aspartate aminotransferase) 09/29/2024 09:23:19 18 10-35 (U/L) Final Alk Phos 09/29/2024 09:23:19 71 35-130 (U/ L) Final Bilirubin, Total 09/29/2024 09:23:19 0.4 <=1 .2 (mg/dL) Final Calcium 09/29/2024 09:23:19 9.8 8.4-10.2 ( mg/dL) Final Protein 09/29/2024 09:23:19 6.3 6.0-8.3 (g /dL) Final ALT (Alanine aminotransferase) 09/29/2024 09:23:19 15 10-35 (U/L) Final Performing Location [facility] [place] [facility] [address]. [facility] [address]
--- OUTSIDE RECORDS SUMMARY | 2024-12-06 20:57 | External Medical Summary | Summary of Care ---
Author Name Unknown Organization [facility] Address [address] [place] [address] Phone [phone] Care Team Providers Care Ornamental Ironworking Supervisor Name Role Phone Kristie Franks MD Primary Care Prov ider Reason for Visit * Reason Onset Date Comments Medication Refill 09/20/2024 Encounter Details Date Type Department Care Team (Late st Contact Info) Description 09/20/2024 Refill Family Medicine [address] [phone] Kristie Franks MD [address] [place] [address] Disc disorder of lumbar region; Chronic pain syndrome; Chronic right-sided low back pain with right-sided sciatica Allergies Active Allergy Reactions Criticality Noted Date Comments Latex 04/04/2009 Penicillins Low 03/24/2023 "It makes my bottom sore" documented as of this encounter (statuses as of 09/21/2024) Medications Escitalopram Oxalate 20 MG Oral Tablet [...] morning and 1 Tablet in the evening. 60 Tablet 08/16/20 24 Active documented as of this encounter (statuses as of 09/21/2024) Active Problems Problem Noted Date Diagnosed Date [...] (pediatric) 12/08 Hx of hysterectomy, total 11/04/2019 Uterine cancer 11/04/2019 Chronic obstructive pulmonary disease 09/21/2019 Pulmonary [...] as of this encounter (statuses as of 09/21/2024) Resolved Problems Problem Noted Date Diagnosed Date Resolved Date Alzheimer's disease, unspecified (CODE) 02/09/2024 04/07/2024 Type 2 diabetes mellitus wit h diabetic chronic kidney disease 11/13/2022 02/09/2024 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 documented as of this encounter (statuses as of 09/21/2024) Immunizations Name Administration Dates Next Due COVID-19 mRNA, LNP-s, No Pre serve, 2-Dose Series ([employer]) 05/01/2021 COVID-19, MRNA-LNP, PF, 30 M CG/0.3 mL, 12 YRS AND ABOVE, IM (P[facility]ER-[facility]) 07/18/2023 Pneumococcal Conjugate Vacci ne, 20-valent ([id number]) 04/29/2023 Seasonal Influenza Vac., MDV , IM, [...] encounter Miscellaneous Notes * Telephone Encounter - Serena Porter, experimental aircraft mechanic - 09/21/2024 11:02 AM EST Pt calling to check on status of Oxycodone. Relayed message. Pt agreeable to schedule appt and bring in pill bottle. Transferred Pt to scheduling. Thank you, Serena Porter Senior [employer] Developer I [facility] 09/21/2024,11:04 AM * Telephone Encounter - Carol Tinoco CMA - 09/21/2024 10:57 AM EST Called and left voice mail advising of message below, and advised to call [phone] to schedulednurse or office visit * Telephone Encounter - Kristie Franks MD - 09/21/2024 10:00 AM EST See other TE. She needs to come in with her pill bottle for appt with me or with RN CM for pill count and UDS. Family member called in with concerns of elder coercion and narcotic diversion. Will not refill until this is done. Please do not inform her the reason for why she needs to come in with pill bottles until she is arrived in clinic. * Telephone Encounter - Vasquez Whitley RP - 09/21/2024 8:48 AM ESTPending Prescriptions: Disp Refills oxyCODONE-Acetaminophen 10-325 MG Oral Tab*60 Tab*0 Sig: Take 1 Tablet by mouth in the morning and 1 Tablet in the evening. * Telephone Encounter - Vasquez Whitley RP - 09/21/2024 8:47 AM EST I have reviewed the patient’s controlled substance dispensing history in the Prescription Drug Monitoring Program in compliance with the [facility] regulations before prescribing a controlled substance. PDMP checked on 09/21/2024. Pending Prescriptions: Disp Refills oxyCODONE-Acetaminophen 10-325 MG Oral Ta*60 Tab*0 Sig: Take 1 Tablet by mouth in the morning and 1 Tablet in the evening. Last Visit: 07/05/2024 (in office), Visit date not found (telemedicine) Next Visit: 10/05/2024 Date medication was last filled: 08/25/2024 Date medication is due for refill: 09/23/2024 Pharmacy: [facility] [address] Is this request for a controlled substance? Yes and Urine Drug Screen Not completed Toxicology results: Results for orders placed or performed in visit on 11/13/22 PAIN MANAGEMENT DRUG PANEL, URINE W/ INTERPRETATION Result Value Compliance Interpretation Based on the medication information provided: The positive hydrocodone screening result is CONSISTENT with hydrocodone use. Confirmatory testing is available upon request. Amphetamines Screen, U Negative Benzodiazepines Screen, U Negative Cannabinoids Screen, U Negative Cocaine Metabolite Screen, U Negative Fentanyl Screen, U Negative Hydrocodone Screen, U Positive (A) Methadone Metabolite Screen, U Negative Morphine/Codeine Screen, U Negative Oxycodone Screen, U Negative Valid Interpretation Normal Creatinine, U 44 Narrative Cutoff Concentrations: Drug Level Amphetamines 500 ng/mL Benzodiazepines 100 ng/mL Cannabinoids 50 ng/mL Cocaine Metabolite 150 ng/mL Fentanyl 1 ng/mL Hydrocodone / Hydromorphone 300 ng/mL Methadone Metabolite 100 ng/mL Morphine / Codeine 300 ng/mL Oxycodone / Oxymorphone 100 ng/mL Screening results are presumptive and can only be used for medical purposes. Confirmatory testing is available upon request. Please approve if appropriate. Thanks, Vasquez Whitley Pharm.D. Clinical Pharmacist [facility] ([facility]) [phone] 09/21/2024, 8:47 AM * Telephone Encounter - Joy Jansen PHARM Tech - 09/20/2024 10:47 AM EST Did you pend patient's preferred pharmacy and medication before forwarding?yes Pharmacy: [facility] [address] Pending Prescriptions: Disp Refills oxyCODONE-Acetaminophen 10-325 MG Oral Ta*60 Tab*0 Sig: Take 1 Tablet by mouth in the morning and 1 Tablet in the evening. Last Visit: 07/05/2024 (in office), Visit date not found (telemedicine) Next Visit: 10/05/2024 If no future appointments scheduled, and last appointment is greater than a year ago, please schedule patient for a follow-up appointment Last date the medication was ordered: 08/16/2024 Is this request for a controlled substance?Yes, What was the last refill date 08/16/2024 w/ quantity 60 and dosage 10-325 mg and Urine Drug Screen was completed Urine Drug Screen: Results for orders placed or performed in visit on 11/13/22 PAIN MANAGEMENT DRUG PANEL, URINE W/ INTERPRETATION Result Value Compliance Interpretation Based on the medication information provided: The positive hydrocodone screening result is CONSISTENT with hydrocodone use. Confirmatory testing is available upon request. Amphetamines Screen, U Negative Benzodiazepines Screen, U Negative Cannabinoids Screen, U Negative Cocaine Metabolite Screen, U Negative Fentanyl Screen, U Negative Hydrocodone Screen, U Positive (A) Methadone Metabolite Screen, U Negative Morphine/Codeine Screen, U Negative Oxycodone Screen, U Negative Valid Interpretation Normal Creatinine, U 44 Narrative Cutoff Concentrations: Drug Level Amphetamines 500 [...] Labs: Lab Results Component Value Date/Time CREAT 1.0 02/09/2024 09:37 AM CREAT 0.68 04/07/2021 06:33 AM CREAT 1.0 11/05/2013 04:10 PM POTASSIUM 4.5 02/09/2024 09:37 AM POTASSIUM 3.8 04/07/2021 06:33 AM POTASSIUM 3.7 11/05/2013 04:10 PM TSH 1.10 02/16/2024 12:43 PM TSH 1.52 01/13/2010 11:01 AM LDL 47 02/09/2024 09:37 AM LDL 146 (H) 03/05/2011 10:20 AM ALT 9 (L) 02/09/2024 09:37 AM ALT 11 03/05/2011 10:20 AM HGBA1C 5.5 02/09/2024 09:37 AM HGBA1C 5.2 12/02/2008 08:16 AM documented in this encounter Plan of Treatment Upcoming Encounters Date Type Department Care Team (Late st Contact Info) Description 09/21/2024 1:00 PM EST Office Visit Otolaryngology [facility] [address] [place] [address] Rekha Morton PA-C [address] [facility] [place] [address] 09/27/2024 11:00 AM EST Office Visit Family Medicine [address] [place] [phone] Lars Vidal [address] [place] [address] 09/27/2024 2:30 PM EST Imaging Radiology [address] [place] [address] 10/04/2024 1:30 PM EST Office Visit Cardiology, [facility] [address] [place] [address] Selena Villanueva CRNP [address] [place] [address] [place] [address] 10/06/2024 1:30 PM EST Telemedicine Interventional Pain Center [facility] [address] [place] [phone] Kaity Damian PA-C [address] [place] [address] 01/25/2025 3:40 PM EDT Office Visit Neurology [facility] [place] [address] [place] [address] Otilio Bee MD [address] [facility] [address] 03/16/2025 1:00 PM EDT Office Visit Family Medicine [address] [phone] Kristie Franks MD [address] [place] [address] [place] [address] Scheduled Orders Name Type Priority Associated Diagnoses Orde r Schedule PAIN MANAGEMENT DRUG PANEL, URINE W/ INTERPRETATION Lab Routine Disc disorder of lumbar region Chronic pain syndrome Expected: 09/21/2024 (Approximate), Expires: 09/21/2025 Scheduled Procedures Name Priority Associated Diagnoses Date/Ti [...] ONCE FOR ASTHMA-ADULT 09/19/2024 Mammogram 11/13/2024 11/14/2023, /0 04/2024, 11/12/2022, Additional history exists Albumin/Creatinine Ratio 02/08/2025 02/09/2024, 03/0 04/2023 GFR 02/08/2025 02/09/2024, 04/09, 11/13/2022, Additional history exists Depression Monitoring 04/12/2025 04/12/2024 O2 ASSESSMENT COMPLETED IN PAST YEAR FOR COPD 07/28/2025 07/28/2024 DXA Scan 04/28/2030 04/28/2023 Colonoscopy 03/24/2033 03/24/2023, [...] sciatica documented in this encounter Care Teams Ornamental Ironworking Supervisor Relationship Specialty Start Date End Date Kristie Franks MD [address] [place] [address] [place] [address] PCP - General Family Medicine 11/18/22 documented as of this encounter
--- OUTSIDE RECORDS SUMMARY | 2024-12-06 20:57 | External Medical Summary | Summary of Care ---
Author Name Unknown Organization [facility] Address [address] [place] [address] Phone [phone] Care Team Providers Care Voucher Clerk Name Role Phone Kristie Franks MD Primary Care Prov ider Reason for Visit * Reason Onset Date Comments [facility]: Screening 09/17/2024 Encounter Details Date Type Department Care Team ([facility] st Contact Info) Description 09/17/2024 Telephone [facility], [facility] [address] [facility] [address] Kira Moran, DRAPERY CUTTER MACHINE [address] [place] [address] [facility]: Screening Allergies Active Allergy Reactions Criticality Noted Date Comments Latex 04/04/2009 Penicillins Low 03/24/2023 "It makes my bottom sore" documented as of this encounter (statuses as of 09/17/2024) Medications Escitalopram Oxalate 20 MG Oral Tablet [...] as of this encounter (statuses as of 09/17/2024) Active Problems Problem Noted Date Diagnosed Date [...] as of this encounter (statuses as of 09/17/2024) Resolved Problems Problem Noted Date Diagnosed Date Resolved Date Alzheimer's disease, unspecified (CODE) 02/09/2024 04/07/2024 Type 2 diabetes mellitus wit h diabetic chronic kidney disease 11/13/2022 02/09/2024 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 documented as of this encounter (statuses as of 09/17/2024) Immunizations Name Administration Dates Next Due COVID-19 mRNA, LNP-s, No Pre serve, 2-Dose Series (Pfizer) 05/01/2021 COVID-19, MRNA-LNP, PF, 30 M CG/0.3 mL, 12 YRS AND ABOVE, IM (PFIZER-Comirnaty) 07/18/2023 Pneumococcal Conjugate Vacci ne, 20-valent ([id number]) 04/29/2023 Seasonal Influenza Vac., MDV , IM, [...] encounter Miscellaneous Notes * Telephone Encounter - Kira Moran LPN - 09/17/2024 10:40 AM EST Chante Harvey was referred as a potential candidate for enrollment for [facility]. A review of this chart was completed and: Chante does not meet criteria for enrollment into [facility]. Referral Source: PCP/Specialty Criteria for Ineligibility: Not Located in Service Area Referring care team was notified via : [employer] communication documented in this encounter Plan of Treatment Upcoming Encounters Date Type Department Care Team (Late st Contact Info) Description 09/21/2024 1:00 PM EST Office Visit Otolaryngology [facility] [address] [place] [address] Rekha Morton PA-C [address] [place] [address] 09/27/2024 2:30 PM EST Imaging Radiology [address] [place] [address] 10/04/2024 1:30 PM EST Office Visit Cardiology, [facility] [address] [place] [address] Selena Villanueva CRNP [address] [place] [address] [place] [address] 10/05/2024 2:00 PM EST Office Visit Family Medicine [address] [place] [phone] Lars Vidal CRNP [address] [place] [address] [place] [address] 10/06/2024 1:30 PM EST Telemedicine Interventional Pain Center [facility] [address] [place] [phone] Kaity Damian PA-C [address] [place] [address] 01/25/2025 3:40 PM EDT Office Visit Neurology [facility] Qian Craig [address] [place] [address] Otilio Bee MD [address] [place] [address] 03/16/2025 1:00 PM EDT Office Visit Family Medicine [address] [phone] Kristie Franks MD [address] [place] [address] [place] [address] Scheduled Procedures Name Priority Associated Diagnoses Date/Ti [...] filedocumented as of this encounter Care Teams Voucher Clerk Relationship Specialty Start Date End Date Kristie Franks MD [address] [place] [address] [place] [address] PCP - General Family Medicine 11/18/22 documented as of this encounter
--- OUTSIDE RECORDS SUMMARY | 2024-12-06 20:57 | External Medical Summary | Summary of Care ---
Author Name Unknown Organization [facility] Address [address] [place] [address] Phone [phone] Care Team Providers Care Talent Acquisition Sourcer Name Role Phone Kristie Franks MD Primary Care Prov ider Encounter Details Date Type Department Care Team (Late st Contact Info) Description 09/27/2024 Population Health External Data Unspecified Department Allergies Active Allergy Reactions Criticality Noted Date Comments Latex 04/04/2009 Penicillins Low 03/24/2023 "It makes my bottom sore" documented as of this encounter (statuses as of 09/27/2024) Medications Escitalopram Oxalate 20 MG Oral Tablet (Lexapro) Take 1 Tablet by mouth in the morning. 09/28/19 Active Austedo 12 MG Oral Tablet Take 2 Tablets by mouth in the morning and 2 Tablets before bedtime. 10/29/19 Active OneTouch UltraSoft LancetsIndications: Type 2 diabetes mellitus with diabetic chronic kidney disease, unspecified CKD stage, unspecified whether exterminator helper insulin use (HCC) Test once [...] MORNING 90 Tablet 1 09/25/19 25 Active documented as of this encounter (statuses as of 09/27/2024) Active Problems Problem Noted Date Diagnosed Date [...] as of this encounter (statuses as of 09/27/2024) Resolved Problems Problem Noted Date Diagnosed Date Resolved Date Alzheimer's disease, unspecified (CODE) 02/09/2024 04/07/2024 Type 2 diabetes mellitus wit h diabetic chronic kidney disease 11/13/2022 02/09/2024 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 documented as of this encounter (statuses as of 09/27/2024) Immunizations Name Administration Dates Next Due COVID-19 mRNA, LNP-s, No Pre serve, 2-Dose Series (Pfizer) 05/01/2021 COVID-19, MRNA-LNP, PF, 30 M CG/0.3 mL, 12 YRS AND ABOVE, IM (PFIZER-Comirnaty) 07/18/2023 Pneumococcal Conjugate Vacci ne, 20-valent ([id number]) 04/29/2023 Seasonal Influenza Vac., MDV , IM, [...] Team (Late st Contact Info) Description 09/29/2024 8:40 AM EST Office Visit Family Medicine [address] [place] [phone] Kristie Franks MD [address] [place] [address] [place] [address] 09/30/2024 1:00 PM EST Imaging Radiology [address] [place] [address] 09/30/2024 2:30 PM EST Imaging Radiology [address] [place] [address] 10/04/2024 1:30 PM EST Office Visit Cardiology, [facility] [address] [place] [address] Selena Villanueva CRNP [address] [place] [address] 10/06/2024 1:30 PM EST Telemedicine Interventional Pain Center [facility] [address] [place] [phone] Kaity Damian PA-C [address] [facility] [place] [address] 01/25/2025 3:40 PM EDT Office Visit Neurology [facility] [address] [facility] [place] [address] Otilio Bee MD [address] [place] [address] 03/16/2025 1:00 PM EDT Office Visit Family Medicine [address] [place] [phone] Kristie Franks MD [address] [place] [address] [place] [address] Scheduled Procedures Name Priority Associated Diagnoses Date/Ti [...] Exam 04/29/2024 04/29/2023 COVID-19 Vaccine (3 - 2023-25 season) 2024 07/18/2023, 05/01/2021 Diabetic Eye Exam [...] filedocumented as of this encounter Care Teams Talent Acquisition Sourcer Relationship Specialty Start Date End Date Kristie Franks MD [address] [place] [address] [place] [address] PCP - General Family Medicine 11/18/22 documented as of this encounter
--- OUTSIDE RECORDS SUMMARY | 2024-12-06 20:57 | External Medical Summary | Summary of Care ---
Author Name Unknown Organization [facility] Address [address] [place] [address] Phone [phone] Care Team Providers Care Architecture Instructor Name Role Phone Romeo Gerber MD Primary Care Prov ider Reason for Visit * Reason Comments eRx-Medication Refill Encounter Details Date Type Department Care Team (Late st Contact Info) Description 09/24/2024 Refill Family Medicine [address] [phone] Romeo Gerber MD [address] [place], [place] [address] franc[place] [phone] Disc disorder of lumbar region; Chronic pain syndrome; Chronic right-sided low back pain with right-sided sciatica; Idiopathic cardiomyopathy (HCC) Allergies Active Allergy Reactions Criticality Noted Date Comments Latex 04/04/2009 Penicillins Low 03/24/2023 "It makes my bottom sore" documented as of this encounter (statuses as of 09/25/2024) Medications Escitalopram Oxalate 20 MG Oral Tablet [...] 09/07/2024 Rosuvastatin Calcium 20 MG Oral Tablet (Crestor)Indicatio ns:Hyperlipidemia with target LDL less than 70 Take 1 Tablet by mouth in the morning. 90 Tablet 1 024 Active busPIRone HCl 10 MG Oral Tablet [...] mouth at bedtime. 30 Tablet 5 Active Additional Information Patient not taking.Reported on 09/07/2024 Pramipexole Dihydrochloride 0.5 MG Oral Tablet (Mirapex) Take 1 Tablet by mouth at bedtime. 90 Tablet 1 024 Active oxyCODONE-Acetamin ophen 10-325 MG Oral TabletIndications: Disc disorder of lumbar region,Chronic pain syndrome,Chronic right-sided low back pain with right-sided sciatica Take 1 Tablet by mouth in the morning and 1 Tablet in the evening. 10 Tablet 025 Active oxyCODONE-Acetamin ophen 10-325 MG Oral TabletIndications: Disc disorder of lumbar region,Chronic pain syndrome,Chronic right-sided low back pain with right-sided sciatica Take 1 Tablet by mouth in the morning and 1 Tablet in the evening. 60 Tablet 024 2024 Discontinued documented as of this encounter (statuses as of 09/25/2024) Active Problems Problem Noted Date Diagnosed Date [...] as of this encounter (statuses as of 09/25/2024) Resolved Problems Problem Noted Date Diagnosed Date Resolved Date Alzheimer's disease, unspecified (CODE) 02/09/2024 04/07/2024 Type 2 diabetes mellitus wit h diabetic chronic kidney disease 11/13/2022 02/09/2024 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 documented as of this encounter (statuses as of 09/25/2024) Immunizations Name Administration Dates Next Due COVID-19 mRNA, LNP-s, No Pre serve, 2-Dose Series (Pfizer) 05/01/2021 COVID-19, MRNA-LNP, PF, 30 M CG/0.3 mL, 12 YRS AND ABOVE, IM (PFIZER-Comirnaty) 07/18/2023 Pneumococcal Conjugate Vacci ne, 20-valent ([id number]) 04/29/2023 Seasonal Influenza Vac., MDV , IM, [...] encounter Miscellaneous Notes * Telephone Encounter - Romeo Gerber MD - 09/25/2024 11:14 AM ESTSigned Prescriptions: Disp Refills oxyCODONE-Acetaminophen 10-325 MG Oral Tab*10 Tab*0 Sig: Take 1 Tablet by mouth in the morning and 1 Tablet in the evening.Authorizing Provider: ROMEO GERBER Prescriptions: Disp Refills Clopidogrel Bisulfate 75 MG Oral Tablet (p*90 Tab*1 Sig: Take 1 Tablet by mouth in the morning.Refused By: JOSEFINA BURNETT for Refusal: Too soon * Telephone Encounter - Josefina Burnett RP - 09/25/2024 7:59 AM ESTPending Prescriptions: Disp Refills oxyCODONE-Acetaminophen 10-325 MG Oral Tab*60 Tab*0 Sig: Take 1 Tablet by mouth in the morning and 1 Tablet in the evening. Refused Prescriptions: Disp Refills Clopidogrel Bisulfate 75 MG Oral Tablet (p*90 Tab*1 Sig: Take 1 Tablet by mouth in the morning. Refused By: JOSEFINA BURNETT Reason for Refusal: To o soon * Telephone Encounter - Josefina Burnett RP - 09/25/2024 7:58 AM EST I have reviewed the patient’s controlled substance dispensing history in the Prescription Drug Monitoring Program in compliance with the [facility] regulations before prescribing a controlled substance. PDMP checked on 09/25/2024. Pending Prescriptions: Disp Refills oxyCODONE-Acetaminophen 10-325 MG Oral Ta*60 Tab*0 Sig: Take 1 Tablet by mouth in the morning and 1 Tablet in the evening. Refused Prescriptions: Disp Refills Clopidogrel Bisulfate 75 MG Oral Tablet (p*90 Tab*1 Sig: Take 1 Tablet by mouth in the morning. Refused By: JOSEFINA BURNETT Reason for Refusal: Too soon Last Visit: 07/05/2024 (in office), Visit date not found (telemedicine) Next Visit: 09/29/2024 Date medication was last filled: 08/25/24 Date medication is due for refill: 09/23/24 Pharmacy: [facility] [address] Is this request for a controlled [...] available upon request. Please approve if appropriate. Josefina Hernandez Clinical Pharmacist [facility] ([facility]) [phone] 09/25/2024, 7:58 AM documented in this encounter Plan of Treatment Upcoming Encounters Date Type Department Care Team (Late st Contact Info) Description 09/29/2024 8:40 AM EST Office Visit Family Medicine [address] [place] [phone] Romeo Gerber MD [address] [place] [address] [place] [address] 09/30/2024 1:00 PM EST Imaging Radiology [address] [place] [address] 09/30/2024 2:30 PM EST Imaging Radiology [address] [place] [address] 10/04/2024 1:30 PM EST Office Visit Cardiology, [facility] [address] [facility] [place] [address] Selena Villanueva CRNP [address] [place] [address] 10/06/2024 1:30 PM EST Telemedicine Interventional Pain Center [facility] [address] [facility] [place] [phone] Kaity Damian PA-C 132 [facility] [place] [address] 01/25/2025 3:40 PM EDT Office Visit Neurology [facility] 200 [facility] [place] [address] Otilio Bee MD [address] [place] [address] 03/16/2025 1:00 PM EDT Office Visit Family Medicine [address] [place] [phone] Romeo Gerber MD [address] [place] [address] [place] [address] Scheduled Procedures Name Priority Associated Diagnoses Date/Ti [...] right-sided low back pain with right-sided sciatica Idiopathic cardiomyopathy (HCC) Other primary cardiomyopathies documented in this encounter Care Teams Architecture Instructor Relationship Specialty Start Date End Date Romeo Gerber MD [address] [place] [address] [place] [address] PCP - General Family Medicine 11/18/22 documented as of this encounter
--- OUTSIDE RECORDS SUMMARY | 2024-12-06 20:57 | External Medical Summary | Summary of Care ---
Author Name Unknown Organization [facility] Address [address] [place] [address] Phone [phone] Care Team Providers Care Yard Attendant Name Role Phone Romeo Gerber MD Primary Care Prov ider Reason for Visit * Reason Comments eRx-Medication Refill Encounter Details Date Type Department Care Team (Late st Contact Info) Description 09/25/2024 Refill Family Medicine [address] [phone] Romeo Gerber MD [address] [place] [address] [place] [address] Hyperlipidemia with target LDL less than 70 Allergies Active Allergy Reactions Criticality Noted Date Comments Latex 04/04/2009 Penicillins Low 03/24/2023 "It makes my bottom sore" documented as of this encounter (statuses as of 09/26/2024) Medications Escitalopram Oxalate 20 MG Oral Tablet [...] by mouth at bedtime. 90 Tablet 1 Active oxyCODONE-Acetamin ophen 10-325 MG Oral TabletIndications: Disc disorder of lumbar region,Chronic pain syndrome,Chronic right-sided low back pain with right-sided sciatica Take 1 Tablet by mouth in the morning and 1 Tablet in the evening. 10 Tablet 025 Active Rosuvastatin Calcium 20 MG Oral Tablet (Crestor)Indicatio ns:Hyperlipidemia with target LDL less than 70 TAKE 1 TABLET BY MOUTH EVERY MORNING 90 Tablet 1 025 Active Rosuvastatin Calcium 20 MG Oral Tablet (Crestor)Indicatio ns:Hyperlipidemia with target LDL less than 70 Take 1 Tablet by mouth in the morning. 90 Tablet 1 024 2024 Discontinued documented as of this encounter (statuses as of 09/26/2024) Active Problems Problem Noted Date Diagnosed Date [...] as of this encounter (statuses as of 09/26/2024) Resolved Problems Problem Noted Date Diagnosed Date Resolved Date Alzheimer's disease, unspecified (CODE) 02/09/2024 04/07/2024 Type 2 diabetes mellitus wit h diabetic chronic kidney disease 11/13/2022 02/09/2024 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 documented as of this encounter (statuses as of 09/26/2024) Immunizations Name Administration Dates Next Due COVID-19 mRNA, LNP-s, No Pre serve, 2-Dose Series (Pfizer) 05/01/2021 COVID-19, MRNA-LNP, PF, 30 M CG/0.3 mL, 12 YRS AND ABOVE, IM [facility] 07/18/2023 Pneumococcal Conjugate Vacci ne, 20-valent ([id number]) 04/29/2023 Seasonal Influenza Vac., MDV , IM, [...] encounter Miscellaneous Notes * Telephone Encounter - Nathaniel Becerril [facility] - 09/25/2024 11:50 PM ESTSigned Prescriptions: Disp Refills Rosuvastatin Calcium 20 MG Oral Tablet (Cr*90 Tab*1 Sig: TAKE 1 TABLET BY MOUTH EVERY MORNINGAuthorizing Provider: ROMEO GERBER User: NATHANIEL BECERRIL documented in this encounter Plan of Treatment Upcoming Encounters Date Type Department Care Team (Late st Contact Info) Description 09/29/2024 8:40 AM EST Office Visit Family Medicine [address] [place] [phone] Romeo Gerber MD [address] [place] [address] [place] [address] 09/30/2024 1:00 PM EST Imaging Radiology [address] [place] [address] 09/30/2024 2:30 PM EST Imaging Radiology [address] [place] [address] 10/04/2024 1:30 PM EST Office Visit Cardiology, [facility] [address] [facility] [place] [address] Selena Villanueva, [place] [address] [facility] [place] [address] 10/06/2024 1:30 PM EST Telemedicine Interventional Pain Center [facility] [address] [place] [phone] Kaity Damian PA-C [address] [place] [address] 01/25/2025 3:40 PM EDT Office Visit Neurology [facility] Q[place] [address] [facility] [place] [address] Otilio Bee MD [address] [facility], [place] [address] 03/16/2025 1:00 PM EDT Office Visit Family Medicine [address] [phone] Romeo Gerber MD [address] [place] [address] [place] [address] Scheduled Procedures Name Priority Associated Diagnoses Date/Ti [...] as of this encounter Visit Diagnoses Diagnosis Hyperlipidemia with target LDL less than 70 Other and unspecified hyperlipidemia documented in this encounter Care Teams Yard Attendant Relationship Specialty Start Date End Date Romeo Gerber MD [address] [place] [address] [place] [address] PCP - General Family Medicine 11/18/22 documented as of this encounter
--- OUTSIDE RECORDS SUMMARY | 2024-12-06 20:57 | External Medical Summary ---
Author Name Unknown Address Unknown Organization K01:[facility] - [address] [facility] [address] Laboratory Report Ordering Provider Test Date Status JANE WALTERS 09/29/2024 10:34:51 Final Drugs that require complianc e testing:

Opioids:
Oxycodone: Quantity 5MG Date/Time of last Dose LAST NIGHT

Benzodiazepines
None

Cutoff Concentrations:
Drug Level
Amphetamines 500 ng/mL
Benzodiazepines 100 ng/mL
Cannabinoids 50 ng/mL
Cocaine Metabolite 150 ng/mL
Fentanyl 1 ng/mL
Hydrocodone / Hydromorphone 300 ng/mL
Methadone Metabolite 100 ng/mL
Morphine / Codeine 300 ng/mL
Oxycodone / Oxymorphone 100 ng/mL

Screening results are presumptive and can only be used for medical purposes. Confirmatory testing is available upon request. Observation Date Value Abnormality Reference (Units) Status COMPLIANCE INTERPRETATION 09/29/2024 10:34:51 Based on the medication information provided: Final COMPLIANCE INTERPRETATION 09/29/2024 10:34:51 The positive oxycodone screening result is CONSISTENT with oxycodone use. Confirmatory testing is available upon request. Final Changed Report: Previously r eported on 09/30/2024 at 0953 EST. See Results History in EPIC for previous versions of the report. Amphetamines, Urine screen 09/29/2024 10:34:51 Refer to confirmation results Abnormal Negative Final Benzodiazepines, Urine screen 09/29/2024 10:34:51 Negative Negative Final Cannabinoids, Urine screen 09/29/2024 10:34:51 Negative Negative Final Cocaine Metabolite, Urine screen 09/29/2024 10:34:51 Negative Negative Final fentaNYL [Presence] in Urine by Screen method 09/29/2024 10:34:51 Negative Negative Final HYDROcodone [Presence] in Urine by Screen method 09/29/2024 10:34:51 Negative Negative Final 9-Azazibnssb-8,5-Dimeth yl-3,3-Diphenylpyrrolid ine (EDDP) [Presence] in Urine 09/29/2024 10:34:51 Negative Negative Final Opiates, Urine screen 09/29/2024 10:34:51 Negative Negative Final oxyCODONE [Presence] in Urine by Screen method 09/29/2024 10:34:51 Positive Abnormal Negative Final FORENSIC VALID INTERPRETATION 09/29/2024 10:34:51 Normal Final Creatinine, Urine 09/29/2024 10:34:51 346 (mg/dL) Final Performing Location [facility] - [address] [facility] [address]
--- OUTSIDE RECORDS SUMMARY | 2024-12-06 20:57 | External Medical Summary | Summary of Care ---
Author Name Unknown Organization [facility] Address [address] [place] [address] Phone [phone] Care Team Providers Care Health Technician Name Role Phone Kristie Franks MD Primary Care Prov ider Reason for Referral * Evaluate & Treat - Unlimited Visits (Within 10 days (routine)) - Authorized Specialty Diagnoses / Procedures Referred By Contac t Referred To Contact HOME CARE / [facility] Diagnoses Chronic pain syndrome Tremors of nervous system History of CVA (cerebrovascular accident) Bipolar affective disorder in remission (HCC) Neuroleptic-induced parkinsonism (HCC) Idiopathic cardiomyopathy (HCC) Kristie Franks MD [address] [place] [address] [place] [address] Phone: tel: fax: Referral ID Status Reason Start Date Expiration Date Visits Requested Visits Authorized [id number] Authorized Specialty Services Required 09/17/2024 999 999 Question Answer Referral Priority Within 10 days (routine) Where should this appointment be scheduled? [facility] Does patient have multiple co-morbid conditions? Yes Does patient have [facility] insurance? Yes Comments Is referral coming from Care Coordination and Integration? No Elderly at risk. Recent phone call from sister, Jasmina, expressing concern about opiate diversion/ possibly taken advantage of by others. Ongoing tremors poorly controlled - need input from neurology and psychiatry about adjusting medications. Encounter Details Date Type Department Care Team (Late st Contact Info) Description 09/09/[address] [place] [address] Kristie Franks MD [address] [place] [address] [place] [address] Allergies Active Allergy Reactions Criticality Noted Date [...] (PFIZER-Comirnaty) 07/18/2023 Pneumococcal Conjugate Vacci ne, 20-valent ([id number]) 04/29/2023 Seasonal Influenza Vac., MDV , IM, [...] Telephone Encounter - Kristie Franks MD - 09/17/2024 10:22 AM EST I am putting in a referral for [facility] to see if they can help. * Telephone Encounter - Kristie Franks MD - 09/16/2024 2:14 PM EST Any updates? * Telephone Encounter - Kristie Franks MD - 09/09/2024 3:54 PM EST To finisher polisher: See note below re: concerns of opioid misuse. I have concerns this patient could be easily manipulated by others. Would you be able to have her come in to see you for medication reconciliation including pill counts of Oxycodone and Trazodone, as well as UDS? Also to screen for elder abuse. * Telephone Encounter - Kristie Franks MD - 09/09/2024 3:54 PM EST ----- Message from Yin Sheridan sent at 09/07/2024 10:49 AM EST ----- Regarding: Hearsay medication abuse Patient caregiver/ sister, jasmina, calling in to state that the patient is supposedly giving her pain meds (oxycodone and trazodone) to her family member to use. She has given 40 roughly to family member in one shot about 1 year ago and has been slowly giving them away up to about 6 months ago. Patients caregiver has been locking them up after picking up the medications from the pharmacy for about 6 months now, but states patient is asking caregiver to give her extra so she can pass them along to the other family member. Caregiver is concerned as she gives patient 2 a day, one in morning one in pm, and patient asks for a third, however caregiver isn't sure that patient is taking that 3rd one for pain or if she's holding on to give them away. And when patient goes to family member house, she apparently always asks for extra for that day specifically. Caregiver does not give additional medication to patient due to concerns for either holding onto meds or giving away. Caregiver states she doesn't always take the meds due to sleeping. Caregiver believes she has a pain medication issue. Caregiver Jasmina would like a call back from provider to discuss this issue and find a resolution, she wants patient to be taken off due to giving them away. Please call patient caregiver Jasmina, listed as alternative contact sibling in chart. Can leave voicemail with phone number and will call back. documented in this encounter Plan of Treatment Upcoming Encounters Date Type Department Care Team (Late st Contact Info) Description 09/21/2024 1:00 PM EST Office Visit Otolaryngology [facility] [address] [place] [address] Rekha Morton PA-C 132 [facility] [place] [address] 09/27/2024 2:30 PM EST Imaging Radiology [address] [place] [address] 10/04/2024 1:30 PM EST Office Visit Cardiology, [facility] 132 [facility] [place] [address] Selena Villanueva CRNP [address] [place] [address] [place] [address] 10/05/2024 2:00 PM EST Office Visit Family Medicine [address] [place] [phone] Lars Vidal CRNP [address] [place] [address] [place] [address] 10/06/2024 1:30 PM EST Telemedicine Interventional Pain Center [facility] [address] [place] [phone] Kaity Damian PA-C [address] [facility] [place] [address] 01/25/2025 3:40 PM EDT Office Visit Neurology [facility] [place]ian [place] [address] [place] [address] Otilio Bee MD [address] [facility] [address] 03/16/2025 1:00 PM EDT Office Visit Family Medicine [address] [place] [phone] Kristie Franks MD [address] [place] [address] [place] [address] Scheduled Orders Name Type Priority Associated Diagnoses Orde r Schedule PAIN MANAGEMENT DRUG PANEL, URINE W/ INTERPRETATION Lab Routine Chronic pain syndrome Expected: 09/09/2024 (Approximate), Expires: 09/09/2025 Scheduled Procedures Name Priority Associated Diagnoses Date/Ti me COLONOSCOPY FLEXIBLE PROXIMA L DIAGNOSTIC Recall Special screening for malignant neoplasms, colon Scheduled Referrals Name Type Priority Associated Diagnoses Orde r Schedule [facility] REFERRAL OP Referral Within 10 days (routine) Chronic pain syndrome Tremors of nervous system History of CVA (cerebrovascular accident) Bipolar affective disorder in remission (HCC) Neuroleptic-induced parkinsonism (HCC) Idiopathic cardiomyopathy (HCC) Ordered: 09/17/2024 Health Maintenance Due Date Last Done Comments Cologuard 1995 Fecal Occult Blood Test 1995 Sigmoidoscopy 1995 Zoster Vaccines (1 of 2) 02/04/2000 Adult Wellness Visit 02/04/2016 DTap/Tdap Vaccines (2 - Td or Tdap) 02/28/2018 02/29/2008 Diabetic Foot Exam 04/29/2024 04/29/2023 COVID-19 Vaccine ( season) 2024 07/18/2023, 05/01/2021 [...] as of this encounter Visit Diagnoses Diagnosis Chronic pain syndrome- Primary Tremors of nervous system Abnormal involuntary movements History of CVA (cerebrovascular accident) Transient ischemic attack (TIA), and cerebral infarction without residual deficits Bipolar affective disorder in remission (HCC) Neuroleptic-induced parkinsonism (HCC) Secondary Parkinsonism Idiopathic cardiomyopathy (HCC) Other primary cardiomyopathies documented in this encounter Care Teams Health Technician Relationship Specialty Start Date End Date Kristie Franks MD [address] [place] [address] [place] [phone] PCP - General Family Medicine 11/18/22 documented as of this encounter
--- OUTSIDE RECORDS SUMMARY | 2024-12-06 20:57 | External Medical Summary | Summary of Care ---
Author Name Unknown Organization [facility] Address [address] [place] [address] Phone [phone] Care Team Providers Care Barrel Painter Name Role Phone Kristie Franks MD Primary Care Prov ider Reason for Visit * Reason Onset Date Comments Medication Refill 09/20/2024 Encounter Details Date Type Department Care Team (Late st Contact Info) Description 09/20/2024 Refill Family Medicine [address] [phone] Kristie Franks MD [address] [place] [address] Disc disorder of lumbar region; Chronic [...] stage, unspecified whether senior living insulin use (HCC) Test once Daily Dx [...] (PFIZER-Comirnaty) 07/18/2023 Pneumococcal Conjugate Vacci ne, 20-valent (Srnywal10) 04/29/2023 Seasonal Influenza Vac., MDV , IM, [...] Notes * Telephone Encounter - Serena Porter, television equipment operator - 09/21/2024 11:02 AM EST Pt calling to check on status of Oxycodone. Relayed message. Pt agreeable to schedule appt and bring in pill bottle. Transferred Pt to scheduling. Thank you, Serena Porter [facility] 09/21/2024,11:04 AM * Telephone Encounter - Carol Tinoco CMA - 09/21/2024 10:57 AM EST Called and left voice mail advising of message below, and advised to call [phone] to schedulednurse or office visit * Telephone [...] Drug Monitoring Program in compliance with the [facility] regulations before prescribing a controlled [...] medication is due for refill: 09/23/2024 Pharmacy: [facility] [address] Is this request for a controlled [...] Clinical Pharmacist [facility] ([facility]) [phone] 09/21/2024, 8:47 AM Electronically signed by Vasquez Whitley [facility] at 09/21/2024 8:48 AM EST * Telephone Encounter - Joy Jansen PHARM Tech - 09/20/2024 10:47 AM EST Did you pend patient's preferred pharmacy and medication before forwarding?yes Pharmacy: [email or web address] [address] Pending Prescriptions: Disp Refills oxyCODONE-Acetaminophen 10-325 [...] 09/21/2024 1:00 PM EST Office Visit Otolaryngology [facility] 132 [facility] [place] [address] Rekha Morton PA-C 132 [facility] [place] [address] 09/27/2024 2:30 PM EST Imaging Radiology [address] [place] [address] 10/04/2024 1:30 PM EST Office Visit Cardiology, [facility] 132 [facility] [place] [address] Selena Villanueva CRNP [address] [place] [address] [place] [address] 10/05/2024 2:00 PM EST Office Visit Family Medicine [address] [place] [phone] Lars Vidal CRNP [address] [place] [address] [place] [address] 10/06/2024 1:30 PM EST Telemedicine Interventional Pain Center [facility] [address] [place] [phone] Kaity Damian PA-C [address] [place] [address] 01/25/2025 3:40 PM EDT Office Visit Neurology [facility] [place] [address] [place] [address] Otilio Bee [facility] [address] [facility] [address] 03/16/2025 1:00 PM EDT Office Visit Family Medicine [address] [phone] Kristie Franks MD [address] [place] [address] [place] [address] Scheduled Orders Name Type Priority Associated Diagnoses [...] sciatica documented in this encounter Care Teams Barrel Painter Relationship Specialty Start Date End Date Kristie Franks MD [address] [place] [address] [place] [address] PCP - General Family Medicine 11/18/22 documented as of this encounter
--- OUTSIDE RECORDS SUMMARY | 2024-12-06 20:57 | External Medical Summary ---
Author Name Unknown Address Unknown Organization K01:[facility] - [address] [place] [address] Laboratory Report Ordering Provider Test Date Status ROMEOJANE AMOS 09/29/2024 09:23:19 Final Observation Date Value Abnormality Reference (Units ) Status Phosphate 09/29/2024 09:23:19 3.7 2.5-4.8 (m g/dL) Final Performing Location [facility] [address] [facility] [address]
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
--- OUTSIDE RECORDS SUMMARY | 2024-12-06 20:57 | External Medical Summary ---
Author Name Unknown Address Unknown Organization K01:[facility] [address] [facility] [address] Laboratory Report Ordering Provider Test Date Status JANE WALTERS 09/29/2024 09:23:19 Final Observation Date Value Abnormality Reference (Units ) Status Triglyceride 09/29/2024 09:23:19 89 <=174 ( mg/dL) Final Triglyceride Reference Range s (mg/dL):
<150 Acceptable
150-174 Borderline high
175-499 High
>=500 Very high Cholesterol 09/29/2024 09:23:19 156 <200 (mg /dL) Final Total Cholesterol Reference Ranges (mg/dL):
<200 Desirable
200-239 Borderline high
>=240 High HDL 09/29/2024 09:23:19 61 >49 (mg/dL ) Final HDL Cholesterol Reference Ra nges (mg/dL):
>=60 High (Desirable)
<50 Low (Undesirable) For Females
<40 Low (Undesirable) For Males NON-HDL CHOLESTEROL 09/29/2024 09:23:19 95 <=159 (mg/dL) Final Non-HDL Cholesterol Referenc e Range (mg/dL):
<100 Target level for high risk ASCVD patient
<130 Optimal for general population
130-159 Near optimal for general population
160-189 Borderline High
190-219 High
>=220 Very High LDL, (calculated) 09/29/2024 09:23:19 77 <= 129 (mg/dL) Final LDL Cholesterol Reference Ra nges (mg/dL):
<70 Target level for high risk ASCVD patient
<100 Optimal for general population
100-129 Near optimal for general population
130-159 Borderline high
160-189 High
>=190 Very high Performing Location [facility] - [address] [facility] [address]
--- OUTSIDE RECORDS SUMMARY | 2024-12-06 20:58 | External Medical Summary | Summary of Care ---
Author Name Unknown Organization [facility] Address [address] [place] [address] Phone [phone] Care Team Providers Care Gun Fitter Name Role Phone Romeo Gerber MD Primary Care Prov ider Reason for Visit * Reason Onset Date Comments Medication Refill 08/16/2024 Encounter Details Date Type Department Care Team (Late st Contact Info) Description 08/16/2024 Refill Family Medicine [address] [phone] Romeo Gerber MD [address] [place] [address] Disc disorder of lumbar region; Chronic pain syndrome; Chronic right-sided low back pain with right-sided sciatica Allergies Active Allergy Reactions Criticality Noted Date Comments Latex 04/04/2009 Penicillins Low 03/24/2023 "It makes my bottom sore" documented as of this encounter (statuses as of 08/16/2024) Medications Escitalopram Oxalate 20 MG Oral Tablet [...] MOUTH DAILY 45 Tablet 07/28/20 23 Active Rosuvastatin Calcium 20 MG Oral Tablet [...] PCP. 238 g 1 07/05/20 24 Active Fluticasone Propionate 50 MCG/ACT Nasal Suspension (Flonase)Indication [...] the evening. 60 Tablet 08/16/20 24 Active oxyCODONE-Acetamino phen 10-325 MG Oral TabletIndications:D isc disorder of lumbar region,Chronic pain syndrome,Chronic right-sided low back pain with right-sided sciatica Take 1 Tablet by mouth in the morning and 1 Tablet in the evening. 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 documented as of this encounter (statuses as of 08/16/2024) Immunizations Name Administration Dates Next Due COVID-19 mRNA, LNP-s, No Pre serve, 2-Dose Series (Pfizer) 05/01/2021 COVID-19, MRNA-LNP, PF, 30 M CG/0.3 mL, 12 YRS AND ABOVE, IM (PFIZER-Comirnaty) 07/18/2023 Pneumococcal Conjugate Vacci ne, 20-valent ([id number]) 04/29/2023 Seasonal Influenza Vac., MDV , IM, [...] No 04/22/2024 Does the household have a [employer] source of income? (Household - for ages [...] Telephone Encounter - Romeo Gerber MD - 08/16/2024 4:01 PM EST Signed Prescriptions: Disp Refills oxyCODONE-Acetaminophen 10-325 MG Oral Tab*60 Tab*0 Sig: Take 1 Tablet by mouth in the morning and 1 Tablet in the evening. Authorizing Provider: ROMEO GERBER * Telephone Encounter - Carol Tinoco CMA - 08/16/2024 3:53 PM ESTPending Prescriptions: Disp Refills oxyCODONE-Acetaminophen 10-325 MG Oral Tab*60 Tab*0 Sig: Take 1 Tablet by mouth in the morning and 1 Tablet in the evening. * Telephone Encounter - Cydney Carey OSA - 08/16/2024 3:40 PM EST Did you pend patient's preferred pharmacy and medication before forwarding?yes Pharmacy: [email or web address] No prescriptions requested or ordered in this encounter Oxycodone Last Visit: 07/05/2024 (in office), Visit date not found (telemedicine) Next Visit: 10/05/2024 If no future appointments scheduled, and last appointment is greater than a year ago, please schedule patient for a follow-up appointment Last date the medication was ordered: 07/22/2024 Is this request for a controlled substance?Yes, What was the last refill date 07/22/2024 w/ quantity 60 and dosage Same and Urine Drug Screen was completed Urine [...] Care Team (Late st Contact Info) Description 08/17/2024 2:00 PM EST Office Visit Cardiology, [facility] [address] [address] [address] Jignesh Zacarias PA-C [address] [place] [address] 09/07/2024 2:30 PM EST Office Visit Interventional Pain Center, [facility] [address] [address] Kaity Damian PA-C [address] [address] 09/13/2024 2:00 PM EST Office Visit Audiology [facility] [address] [place] [address] Kaitlin Mcintyre Au.D. [address] [place] [address] 10/05/2024 2:00 PM EST Office Visit Family [address] [phone] Lars Vidal CRNP [address] [place] [address] [place] [address] 01/25/2025 3:40 PM EDT Office Visit Neurology [facility] [address] Otilio Bee MD [address] [place], [place] [phone] 03/16/2025 1:00 PM EDT Office Visit Family [address] [phone] Romeo Gerber MD [address] [place] [address] [place] [address] Scheduled Procedures Name Priority Associated Diagnoses Date/Ti [...] 11/13/2022, Additional history exists Mammogram 11/13/2024 11/14/2023, 0 04/2024, 11/12/2022, Additional history exists Albumin/Creatinine Ratio 02/08/2025 02/09/2024, 0 04/2023 GFR 02/08/2025 02/09/2024, 04/09, 11/13/2022, Additional history exists Depression Monitoring 04/12/2025 04/12/2024 Lipid Panel 02/08/2029 02/09/2024, 030 04/2023, 03/05/2011, Additional history exists DXA Scan 04/28/2030 04/28/2023 Colonoscopy 03/24/2033 03/24/2023, 03/08, 04/07/2021, Additional history exists Colorectal Cancer Screening 03/24/2033 Pneumococcal Vaccine: 65+ Years Completed 04/29/2023, 02/18/2022, 03/13/2020, Additional history [...] sciatica documented in this encounter Care Teams Gun Fitter Relationship Specialty Start Date End Date Romeo Gerber MD [address] [place] [address] [place] [address] PCP - General Family Medicine 11/18/22 documented as of this encounter
--- OUTSIDE RECORDS SUMMARY | 2024-12-06 20:58 | External Medical Summary | Summary of Care ---
Author Name Unknown Organization [facility] Address [address] [place] [address] Phone [phone] Care Team Providers Care Sorter Laundry Articles Name Role Phone Kristie Franks MD Primary Care Prov ider Reason for Visit * Reason Onset Date Comments Advice 07/26/2024 Surgery /calling back to give different phone number for the provider in [place] Encounter Details Date Type Department Care Team ([facility] Contact Info) Description 07/26/2024 Telephone Family [address] [phone] Kristie Franks MD [address] [place] [address] Advice (Surgery /calling back to give diff... Allergies Active Allergy Reactions Criticality Noted Date Comments Latex 04/04/2009 Penicillins Low 03/24/2023 "It makes my bottom sore" documented as of this encounter (statuses as of 08/10/2024) Medications Escitalopram Oxalate 20 MG Oral Tablet (Lexapro) Take 1 Tablet by mouth in the morning. 09/28/19 Active Austedo 12 MG Oral Tablet Take 2 Tablets by mouth in the morning and 2 Tablets before bedtime. 10/29/19 23 Active OneTouch UltraSoft LancetsIndications: Type 2 diabetes mellitus with diabetic chronic kidney disease, unspecified CKD stage, unspecified whether skilled nursing insulin use (HCC) Test once Daily Dx [...] Tablet in the evening. 60 Tablet 07/22/20 Active Pramipexole Dihydrochloride 0.5 MG Oral Tablet (Mirapex) Take 1 Tablet by mouth at bedtime. 90 Tablet 1 04/07/20 24 024 Discontin ued(Refil l) documented as of this encounter (statuses as of 08/10/2024) Active Problems Problem Noted Date Diagnosed Date [...] as of this encounter (statuses as of 08/10/2024) Resolved Problems Problem Noted Date Diagnosed Date Resolved Date Alzheimer's disease, unspecified (CODE) 02/09/2024 04/07/2024 Type 2 diabetes mellitus wit h diabetic chronic kidney disease 11/13/2022 02/09/2024 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 documented as of this encounter (statuses as of 08/10/2024) Immunizations Name Administration Dates Next Due COVID-19 mRNA, LNP-s, No Pre serve, 2-Dose Series (Pfizer) 05/01/2021 COVID-19, MRNA-LNP, PF, 30 M CG/0.3 mL, 12 YRS AND ABOVE, IM (PFIZER-Comirnaty) 07/18/2023 Pneumococcal Conjugate Vacci ne, 20-valent ([id number]) 04/29/2023 Seasonal Influenza Vac., MDV , IM, [...] Telephone Encounter - Kristie Franks MD - 08/10/2024 8:39 AM EST Reviewed with Neurology. The recommended approach is for Chante to see the neurology movement specialist. They will hopefullydetermine the reason she is having tremors and will then advise what is the most effective treatment - which may be medication or referral for surgery. Please let her know the movement specialist appointment is stein to determining what the best treatment approach will be. Let me know if she wants me to call her. * Telephone Encounter - Kristie Franks MD - 08/09/2024 4:[address] Hammer - Ms Harvey is requesting a referral to neurosurgery as was recommend by her friend fora surgical intervention to stop her tremors. I would defer to you whether this is appropriate? * Telephone Encounter - Carol Tinoco CMA - 08/09/2024 3:39 PM EST Please advise * Telephone Encounter - Cyndi Dixon OSA - 08/09/2024 1:12 PM EST Pt calling again to request referral to [place] surgeon for tremors. Please review 07.28.24 neurotology note to determine if appropriate. See also 07.19.24 TE. * Telephone Encounter - Carol Tinoco CMA - 07/29/2024 2:26 PM EST See 07/19 TE this is addressed there * Telephone Encounter - Kristie Franks MD - 07/28/2024 2:57 PM EST This was addressed in a separate TE. She should be seen by neurology first to see if surgery is even a recommended option for her condition. She can certainly call the Neurosurgery office to see if she can just schedule an appointment herself. I cannot make a referral for care that I have not recommended; and having brain surgery to relieve tremors is outside my scope of practice. She needs to see neurology first. * Telephone Encounter - Carol Tinoco CMA - 07/28/2024 12:01 PM EST Please advise if agreeable to referral * Telephone Encounter - Annalee Gallo OSA - 07/26/2024 10:48 AM EST Pt calling would like to get brain surgery at the [facility] to help with her shakiness.She is asking for an order/ referral. Their phone number is: [phone]-Dr Faizan Weathers. Patient calling back and stating that the correct phone number for Dr. Faustino Weathers is [phone] * Telephone Encounter - Cydney Carey OSA - 07/26/2024 10:04 AM EST Pt calling would like to get brain surgery at the [facility] to help with her shakiness.She is asking for an order/ referral. Their phone number is: [phone]-Dr Faizan Weathers. documented in this encounter Plan of Treatment Upcoming Encounters Date Type Department Care Team (Late st Contact Info) Description 08/17/2024 2:00 PM EST Office Visit Cardiology, [facility] [address] [place] [address] Jignesh Zacarias PA-C [address] [place] [address] 09/07/2024 2:30 PM EST Office Visit Interventional Pain Center, [facility] [address] [place] [address] Kaity Damian PA-C [address] [place] [address] 09/13/2024 2:00 PM EST Office Visit Audiology [facility] [address] [place] [address] Kaitlin Mcintyre Au.D. [address] [place] [address] 10/05/2024 2:00 PM EST Office Visit [address] [phone] Lars Vidal CRNP [address] [place] [address] [place] [address] 01/25/2025 3:40 PM EDT Office Visit Neurology [facility] [address] [facility] [place] [address] Otilio Bee MD [address] [place], [place] [phone] 03/16/2025 1:00 PM EDT Office Visit [address] [phone] Kristie Franks MD [address] [place] [address] [place] [address] Scheduled Procedures Name Priority Associated Diagnoses Date/Ti [...] 11/13/2022, Additional history exists Mammogram 11/13/2024 11/14/2023, 04/2024, 11/12/2022, Additional history exists Albumin/Creatinine Ratio 02/08/2025 02/09/2024, 0 04/2023 GFR 02/08/2025 02/09/2024, 04/09, 11/13/2022, Additional history exists Depression Monitoring 04/12/2025 04/12/2024 Lipid Panel 02/08/2029 02/09/2024, 0 04/2023, 03/05/2011, Additional history exists DXA Scan [...] filedocumented as of this encounter Care Teams Sorter Laundry Articles Relationship Specialty Start Date End Date Kristie Franks MD [address] [place] [address] [place] [phone] PCP - General Family Medicine 11/18/22 documented as of this encounter
--- OUTSIDE RECORDS SUMMARY | 2024-12-06 20:58 | External Medical Summary | Summary of Care ---
Author Name Unknown Organization [facility] Address [address] [place] [address] Phone [phone] Care Team Providers Care Pick And Shovel Man Name Role Phone Kristie Franks MD Primary Care Prov ider Reason for Visit * Reason Onset Date Comments Advice 07/26/2024 Surgery /calling back to give different phone number for the provider in [place] Encounter Details Date Type Department Care Team ([facility] Contact Info) Description 07/26/2024 Telephone Family [address] [phone] Kristie Franks MD [address] [place] [address] Advice (Surgery /calling back to give diff... Allergies Active Allergy Reactions Criticality Noted Date Comments Latex 04/04/2009 Penicillins Low 03/24/2023 "It makes my bottom sore" documented as of this encounter (statuses as of 08/09/2024) Medications Escitalopram Oxalate 20 MG Oral Tablet (Lexapro) Take 1 Tablet by mouth in the morning. 09/28/19 Active Austedo 12 MG Oral Tablet Take 2 Tablets by mouth in the morning and 2 Tablets before bedtime. 10/29/19 23 Active OneTouch UltraSoft LancetsIndications: Type 2 diabetes mellitus with diabetic chronic kidney disease, unspecified CKD stage, unspecified whether half-way insulin use (HCC) Test once Daily Dx [...] as of this encounter (statuses as of 08/09/2024) Active Problems Problem Noted Date Diagnosed Date [...] as of this encounter (statuses as of 08/09/2024) Resolved Problems Problem Noted Date Diagnosed Date Resolved Date Alzheimer's disease, unspecified (CODE) 02/09/2024 04/07/2024 Type 2 diabetes mellitus wit h diabetic chronic kidney disease 11/13/2022 02/09/2024 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 documented as of this encounter (statuses as of 08/09/2024) Immunizations Name Administration Dates Next Due COVID-19 mRNA, LNP-s, No Pre serve, 2-Dose Series (Pfizer) 05/01/2021 COVID-19, MRNA-LNP, PF, 30 M CG/0.3 mL, 12 YRS AND ABOVE, IM (PFIZER-Comirnaty) 07/18/2023 Pneumococcal Conjugate Vacci ne, 20-valent ([id number]) 04/29/2023 Seasonal Influenza Vac., MDV , IM, [...] MD - 08/09/2024 4:[address] aHmmer - Ms Harvey is requesting a referral [...] Pt calling again to request referral to [place] surgeon for tremors. Please review 07.28.24 neurotology note to determine if appropriate. See also 11.11.24 TE. * Telephone Encounter - Carol Tinoco [...] like to get brain surgery at the [facility] to help with her shakiness.She is asking for an order/ referral. Their phone number is: [phone]-Dr Faizan Weathers. Patient calling back and stating that the correct phone number for Dr. Faustino Weathers is [phone] * Telephone Encounter - Cydney Carey OSA - 07/26/2024 10:04 AM EST Pt calling would like to get brain surgery at the [facility] to help with her shakiness.She is asking for an order/ referral. Their phone number is: [phone]-Dr Faizan Weathers. documented in this encounter Plan of Treatment Upcoming Encounters Date Type Department Care Team (Late st Contact Info) Description 08/17/2024 2:00 PM EST Office Visit Cardiology, [facility] [address] [place] [address] Jignesh Zacarias PA-C [address] [place] [address] 09/07/2024 2:30 PM EST Office Visit Interventional Pain Center, [facility] [address] [address] Kaity Damian PA-C [address] [place] [address] 09/13/2024 2:00 PM EST Office Visit Audiology [facility] [address] [address] Kaitlin Mcintyre Au.D. [address] [place] [address] 10/05/2024 2:00 PM EST Office Visit Family Medicine [address] [place] [phone] Lars Vidal [address] [place] [address] 01/25/2025 3:40 PM EDT Office Visit Neurology [facility] [place] [address] [facility] [place] [address] Otilio Bee MD [address] [place] [address] 03/16/2025 1:00 PM EDT Office Visit Family Medicine [address] [place] [address] Kristie Franks MD [address] [place] [address] [place] [phone] Scheduled Procedures Name Priority Associated Diagnoses Date/Ti [...] filedocumented as of this encounter Care Teams Pick And Shovel Man Relationship Specialty Start Date End Date Kristie Franks MD [address] [place] [address] [place] [address] PCP - General Family Medicine 11/18/22 documented as of this encounter
--- OUTSIDE RECORDS SUMMARY | 2024-12-06 20:58 | External Medical Summary | Summary of Care ---
Author Name Unknown Organization [facility] Address [address] [place] [address] Phone [phone] Care Team Providers Care Photographic Technician Name Role Phone Kristie Franks MD Primary Care Prov ider Reason for Visit * Reason Onset Date Comments Advice 07/26/2024 Surgery /calling back to give different phone number for the provider in [place] Encounter Details Date Type Department Care Team ([facility] Contact Info) Description 07/26/2024 Telephone Family [address] [phone] Kristie Franks MD [address] [place] [address] Advice (Surgery /calling back to give diff... Allergies Active Allergy Reactions Criticality Noted Date Comments Latex 04/04/2009 Penicillins Low 03/24/2023 "It makes my bottom sore" documented as of this encounter (statuses as of 08/18/2024) Medications Escitalopram Oxalate 20 MG Oral Tablet [...] as of this encounter (statuses as of 08/18/2024) Active Problems Problem Noted Date Diagnosed Date [...] as of this encounter (statuses as of 08/18/2024) Resolved Problems Problem Noted Date Diagnosed Date Resolved Date Alzheimer's disease, unspecified (CODE) 02/09/2024 04/07/2024 Type 2 diabetes mellitus wit h diabetic chronic kidney disease 11/13/2022 02/09/2024 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 documented as of this encounter (statuses as of 08/18/2024) Immunizations Name Administration Dates Next Due COVID-19 mRNA, LNP-s, No Pre serve, 2-Dose Series (Pfizer) 05/01/2021 COVID-19, MRNA-LNP, PF, 30 M CG/0.3 mL, 12 YRS AND ABOVE, IM (PFIZER-Comirnaty) 07/18/2023 Pneumococcal Conjugate Vacci ne, 20-valent ([id number]) 04/29/2023 Seasonal Influenza Vac., MDV , IM, [...] Miscellaneous Notes * Telephone Encounter - Elizabeth Mcmahan OSA - 08/18/2024 9:07 AM EST Added to wait list * Telephone Encounter - Kristie Franks MD - 08/10/2024 12:35 PM EST Called patient back. She understands that she has appt with Dr Bee to address her tremors. Please fwd to Dr Bees nurse pool to see if she can be placed on the waiting list for an earlierappt if possible. * Telephone Encounter - Carol Tinoco CMA - 08/10/2024 11:43 AM EST Called and spoke with pt advised of message below and she request that Doctor call her. Pt asked where neurology specialist is located, I had advised her I was unsure but that it might bein the building where she saw neurology, pt then asked me where that was. I advised the office where she was seen the other day bu neurology, pt stated unsure where that was at, I advised pt it [place] * Telephone Encounter - Kristie Franks MD [...] Pt calling again to request referral to [place] surgeon for tremors. Please review 07.28.24 neurotology note to determine if appropriate. See also 24 TE. * Telephone Encounter - Carol Tinoco [...] see neurology first. * Telephone Encounter - aCrol Tinoco CMA - 07/28/2024 12:01 PM EST Please advise if agreeable to referral * Telephone Encounter - Annalee Gallo OSA - 07/26/2024 10:48 AM EST Pt calling would like to get brain surgery at the [facility] to help with her shakiness.She is asking for an order/ referral. Their phone number is: [phone]-Dr Faizan Weathers. Patient calling back and stating that the correct phone number for Dr. Faustino Weathers is [phone] * Telephone Encounter - Cydney Carey OSA - 07/26/2024 10:04 AM EST Pt calling would like to get brain surgery at the [facility] to help with her shakiness.She is asking for an order/ referral. Their phone number is: [phone]-Dr Faizan Weathers. documented in this encounter Plan of Treatment Upcoming Encounters Date Type Department Care Team (Late st Contact Info) Description 09/07/2024 2:30 PM EST Office Visit Interventional Pain Center, [facility] [address] [place] [address] Kaity Damian PA-C [address] [place] [address] 09/13/2024 2:00 PM EST Office Visit Audiology [facility] [address] [facility] [place] [address] Kaitlin Mcintyre Au.D. 132 [facility] [place] [address] 10/04/2024 1:30 PM EST Office Visit Cardiology, [facility] [address] [facility] [place] [address] Selena Villanueva CRNP [address] [place] [address] [place] [address] 10/05/2024 2:00 PM EST Office Visit Family Medicine [address] [place] [phone] Lars Vidal CRNP [address] [place] [address] [place] [address] 01/25/2025 3:40 PM EDT Office Visit Neurology [facility] [address] [place] [address] Otilio Bee MD [address] [place] [address] 03/16/2025 1:00 PM EDT Office Visit Family Medicine [address] [place] [address] Kristie Franks MD [address] [place] [address] [place] [phone] Scheduled Procedures Name Priority Associated Diagnoses Date/Ti [...] filedocumented as of this encounter Care Teams Photographic Technician Relationship Specialty Start Date End Date Kristie Franks MD [address] [place] [address] [place] [address] PCP - General Family Medicine 11/18/22 documented as of this encounter
--- OUTSIDE RECORDS SUMMARY | 2024-12-06 20:58 | External Medical Summary | Summary of Care ---
Author Name Unknown Organization [facility] Address [address] [place] [address] Phone [phone] Care Team Providers Care Tile Classifier Name Role Phone Kristie Franks MD Primary Care Prov ider Reason for Visit * Reason Onset Date Comments Advice 07/26/2024 Surgery /calling back to give different phone number for the provider in [place] Encounter Details Date Type Department Care Team ([facility] Contact Info) Description 07/26/2024 Telephone Family [address] [phone] Kristie Franks MD [address] [place] [address] Advice (Surgery /calling back to give [...] kidney disease, unspecified CKD stage, unspecified whether shelter insulin use (HCC) Test once Daily Dx [...] (PFIZER-Comirnaty) 07/18/2023 Pneumococcal Conjugate Vacci ne, 20-valent ([id number]) 04/29/2023 Seasonal Influenza Vac., MDV , IM, [...] tremors. Please fwd to Dr Bees nurse [place] to see if she can be placed [...] at, [facility] [employer] * Telephone Encounter - Kristie Franks MD [...] Pt calling again to request referral to [place] surgeon for tremors. Please review 07.28.24 neurotology [...] like to get brain surgery at the [facility] to help with her shakiness.She is asking for an order/ referral. Their phone number is: [phone]-Dr Faizan Weathers. Patient calling back and stating that the correct phone number for Dr. Faustino Weathers is [phone] * Telephone Encounter - Cydney Carey OSA - 07/26/2024 10:04 AM EST Pt calling would like to get brain surgery at the [facility] to help with her shakiness.She is asking for an order/ referral. Their phone number is: [phone]-Dr Faizan Weathers. documented in this encounter Plan of Treatment Upcoming Encounters Date Type Department Care Team (Late st Contact Info) Description 08/17/2024 2:00 PM EST Office Visit Cardiology, [facility] [address] [facility] [place] [address] Jignesh Zacarias PA-C [address] [place] [address] 09/07/2024 2:30 PM EST Office Visit Interventional Pain Center, [facility] [address] [facility] [place] [address] Kaity Damian PA-C [address] [place] [address] 09/13/2024 2:00 PM EST Office Visit Audiology [facility] [address] [facility] [place] [address] Kaitlin Mcintyre Au.D. [address] [place] [address] 10/05/2024 2:00 PM EST Office Visit Family [address] [phone] [place] [address] 01/25/2025 3:40 PM EDT Office Visit Neurology [facility] [place] [address] Otilio Bee MD [address] [facility] [place] [address] 03/16/2025 1:00 PM EDT Office Visit Family Medicine [address] [phone] Krsitie Franks MD [address] [place] [address] [place] [address] Scheduled Procedures Name Priority [...] exists Albumin/Creatinine Ratio 02/08/2025 02/09/2024, 030 04/2023 GFR 02/08/2025 02/09/2024, 04/09, 11/13/2022, Additional [...] filedocumented as of this encounter Care Teams Tile Classifier Relationship Specialty Start Date End Date Kristie Franks MD [address] [place] [address] [place] [address] PCP - General Family Medicine 11/18/22 documented as of this encounter
--- OUTSIDE RECORDS SUMMARY | 2024-12-06 20:58 | External Medical Summary | Summary of Care ---
Author Name Unknown Organization [facility] Address [address] [place] [address] Phone [phone] Care Team Providers Care Aircraft Part Assembler Name Role Phone Kristie Franks MD Primary Care Prov ider Reason for Visit * Ancillary Services (Within 10 days (routine)) - Closed Specialty Diagnoses / Procedures Referred By Contac t Referred To Contact Audiology Diagnoses Hearing loss, bilateral Kristie Franks MD [address] [place] [address] [place] [address] Phone: tel: fax: Referral ID Status Reason Start Date Expiration Date V isits Requested Visits Authorized [id number] Closed Ancillary Services Required 12/22/[phone] Encounter Details Date Type Department Care Team (Latest Contact Info) Description 09/13/2024 2:00 PM EST Office Visit Audiology [facility] 132 [facility] [place] [address] Kaitlin Mcintyre Au.D. 132 [facility] [place] [address] Asymmetrical sensorineural hearing loss* Allergies Active Allergy Reactions Criticality Noted Date Comments Latex 04/04/2009 Penicillins Low 03/24/2023 "It makes my bottom sore" documented as of this encounter (statuses as of 09/13/2024) Medications Escitalopram Oxalate 20 MG Oral Tablet [...] in the morning. 90 Tablet 1 12/25/19 Active busPIRone HCl 10 MG Oral Tablet [...] as of this encounter (statuses as of 09/13/2024) Active Problems Problem Noted Date Diagnosed Date [...] as of this encounter (statuses as of 09/13/2024) Resolved Problems Problem Noted Date Diagnosed Date Resolved Date Alzheimer's disease, unspecified (CODE) 02/09/2024 04/07/2024 Type 2 diabetes mellitus wit h diabetic chronic kidney disease 11/13/2022 02/09/2024 Idiopathic cardiomyopathy 09/17/2011 Secondary parkinsonism 10/09/200702/08 BENIGN HYPERTENSION 09/06/2002 07/14/20 Overview (07/14/2009): Modified per HTN Taxonomy. documented as of this encounter (statuses as of 09/13/2024) Immunizations Name Administration Dates Next Due COVID-19 mRNA, LNP-s, No Pre serve, 2-Dose Series (Pfizer) 05/01/2021 COVID-19, MRNA-LNP, PF, 30 M CG/0.3 mL, 12 YRS AND ABOVE, IM (PFIZER-Comirnaty) 07/18/2023 Pneumococcal Conjugate Vacci ne, 20-valent ([id number]) 04/29/2023 Seasonal Influenza Vac., MDV , IM, [...] Progress Notes * Kaitlin Mcintyre Au.D. - 09/13/2024 1:43 PM EST Images from the original note were not included. Chante Harvey, 74 year old was ]seen for an audiologic evaluation with a primary complaint of decreased hearing sensitivity. Referred by: Kristie Dangelo MD Audiologic/Otologic History: Case historian: Patient Hearing loss: no dx HL; moderate to significant difficulties described by patient. L worse than right, describes gradual loss. Tinnitus: intermittent, non bothersome, bilateral, non pulsatile Aural pressure/otalgia: otalgia of both ears Disequilibrium/Vertigo: No Ear infections: reports occasional bloody discharge from ears. Noise Exposure:No Familial Hearing Loss: No Facundo/Vestibulotoxic medication: No Head Injury: No Previous audiologic evaluation: none Current Hearing Aids: reports she tried some a long time ago, hopes her insurance can help Procedures and Results Otoscopy: Ear canals are free of occluding cerumen for audiologic testing bilaterally. Tympanometry 94488 See scanned results Right: WNL for static admittance, tympanometric peak pressure, equivalent volume, and tympanic width("Type A") Left: WNL for static admittance, tympanometric peak pressure, equivalent volume, and tympanic width("Type A") Standard Audiometric Testing 27405 ABSD, insert earphones earphones, Fair to Good reliability Right: sensorineural hearing loss Left: sensorineural hearing loss Speech recognition thresholds were consistent with hearing thresholds. Word recognition scores, obtained via monitored live voice were: right 80%, left 64% Impression: Bilateral asymmetric sensorineural hearing loss Recommendations: Audiology services as needed., Audiologic monitoring of this identified hearing loss, Hearing aid consultation , Use of communication strategies and assistive technology in challenging listening situations, Use of hearing protection when exposed to excessive sound levels, and Evaluation by an Ear, Nose, and Throat physican, obtain ENT referral from PCP Hearing Aid Consultation The audiogram was reviewed with Chante. The benefits and limitations of amplification were discussedin detail. The different styles of hearing aids (in-the-ear vs. [id number]) were discussed. Monaural vs. binaural use of amplification was discussed and binaural amplification was recommended. The different levels of digital technology and features were explained. All questions were answered. She likely has a hearing aid benefit via [employer], will check for her and report back prior to ordering any devices. Plan Chante will return to establish care with ENT. She is aware that a clearance form must be completed by her physician before she can be fit with the hearing aids. Lorena Polk, CCC-A Scan: audiogram, tympanograms cc: Kristie Dangelo MD documented in this encounter Plan of Treatment Upcoming Encounters Date Type Department Care Team (Late st Contact Info) Description 09/21/2024 1:00 PM EST Office Visit Otolaryngology [facility] 132 [facility] [place] [address] Rekha Morton PA-C 132 [facility] [place] [address] 09/27/2024 2:30 PM EST Imaging Radiology [address] [place] [address] 10/04/2024 1:30 PM EST Office Visit Cardiology, [facility] 132 [facility] [place] [address] Selena Villanueva [address] [place] [address] 10/05/2024 2:00 PM EST Office Visit Family Medicine [address] [place] [phone] Lars Vidal[address] [place] [address] 10/06/2024 1:30 PM EST Telemedicine Interventional Pain Center [facility] [address] [place] [phone] Kaity Damian PA-C [address] [place] [address] 01/25/2025 3:40 PM EDT Office Visit Neurology [facility] 200 [facility] [place] [address] Otilio Bee MD [address] [place] [address] 03/16/2025 1:00 PM EDT Office Visit Family Medicine [address] [place] [phone] Kristie Franks MD [address] [place] [address] [place] [address] Scheduled Procedures Name Priority Associated Diagnoses Date/Ti [...] Procedure Name Priority Date/Time Associated Diagnosis Comments AUDIOMETRIC RESULT 09/13/2024 AUDIOMETRIC RESULT 09/13/2024 documented in this encounter Results * AUDIOMETRIC RESULT (09/13/2024) 09/13/2024 Kaitlin Carrillo [facility] Final Resul t * AUDIOMETRIC RESULT (09/13/2024) 09/13/2024 Kaitlin Carrillo [facility] Final Resul t documented in this encounter Visit Diagnoses Diagnosis Asymmetrical sensorineural hearing loss- Primary Sensorineural hearing loss, asymmetrical documented in this encounter Care Teams Aircraft Part Assembler Relationship Specialty Start Date End Date Kristie Franks MD [address] [place] [address] [place] [address] PCP - General Family Medicine 11/18/22 documented as of this encounter
--- OUTSIDE RECORDS SUMMARY | 2024-12-06 20:58 | External Medical Summary | Summary of Care ---
Author Name Unknown Organization [facility] Address [address] [place] [address] Phone [phone] Care Team Providers Care Completions Engineer Name Role Phone Kristie Franks MD Primary Care Prov ider Reason for Visit * Reason Onset Date Comments Advice 07/26/2024 Surgery /calling back to give different phone number for the provider in [place] Encounter Details Date Type Department Care Team ([facility] Contact Info) Description 07/26/2024 Telephone Family [address] [phone] Kristie Franks MD [address] [place] [address] Advice (Surgery /calling back to give diff... Allergies Active Allergy Reactions Criticality Noted Date Comments Latex 04/04/2009 Penicillins Low 03/24/2023 "It makes my bottom sore" documented as of this encounter (statuses as of 08/12/2024) Medications Escitalopram Oxalate 20 MG Oral Tablet (Lexapro) Take 1 Tablet by mouth in the morning. 09/28/19 Active Austedo 12 MG Oral Tablet Take 2 Tablets by mouth in the morning and 2 Tablets before bedtime. 10/29/19 Active OneTouch UltraSoft LancetsIndications: Type 2 diabetes mellitus with diabetic chronic kidney disease, unspecified CKD stage, unspecified whether longterm insulin use (HCC) Test once Daily Dx [...] as of this encounter (statuses as of 08/12/2024) Active Problems Problem Noted Date Diagnosed Date [...] as of this encounter (statuses as of 08/12/2024) Resolved Problems Problem Noted Date Diagnosed Date Resolved Date Alzheimer's disease, unspecified (CODE) 02/09/2024 04/07/2024 Type 2 diabetes mellitus wit h diabetic chronic kidney disease 11/13/2022 02/09/2024 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 documented as of this encounter (statuses as of 08/12/2024) Immunizations Name Administration Dates Next Due COVID-19 mRNA, LNP-s, No Pre serve, 2-Dose Series (Pfizer) 05/01/2021 COVID-19, MRNA-LNP, PF, 30 M CG/0.3 mL, 12 YRS AND ABOVE, IM (PFIZER-Comirnaty) 07/18/2023 Pneumococcal Conjugate Vacci ne, 20-valent ([id number]) 04/29/2023 Seasonal Influenza Vac., MDV , IM, [...] tremors. Please fwd to Dr Bees nurse [place] to see if she can be placed [...] Pt calling again to request referral to [place] surgeon for tremors. Please review 07.28.24 neurotology [...] an order/ referral. Their phone number is: [phone]-Dr Faizan Weathers. Patient calling back and stating that the correct phone number for Dr. Faustino Weathers is [phone] * Telephone Encounter - Cydney Carey OSA - 07/26/2024 10:04 AM EST Pt calling would like to get brain surgery at the [facility] to help with her shakiness.She is asking for an order/ referral. Their phone number is: [phone]-Dr Faizan Weathers. documented in this encounter Plan of Treatment Upcoming Encounters Date Type Department Care Team (Late st Contact Info) Description 08/17/2024 2:00 PM EST Office Visit Cardiology, [facility] 132 [facility] [place] [address] iJgnesh Zacarias PA-C [address] [place] [address] 09/07/2024 2:30 PM EST Office Visit Interventional Pain Center, [facility] 132 [facility] [place] [address] Kaity Damian PA-C [address] [place] [address] 09/13/2024 2:00 PM EST Office Visit Audiology [facility] 132 [facility] [place] [address] Kaitlin Mcintyre Au.D. [address] [place] [address] 10/05/2024 2:00 PM EST Office Visit Family [address] [phone] [place] [address] 01/25/2025 3:40 PM EDT Office Visit Neurology [facility] 200 [facility] [place] [address] Otilio Bee MD [address] [facility] [place] [address] 03/16/2025 1:00 PM EDT Office Visit Family Medicine [address] [phone] Kristie Franks MD [address] [place] [address] [place] [address] Scheduled Procedures Name Priority [...] filedocumented as of this encounter Care Teams Completions Engineer Relationship Specialty Start Date End Date Kristie Franks MD [address] [place] [address] [place] [address] PCP - General Family Medicine 11/18/22 documented as of this encounter
--- OUTSIDE RECORDS SUMMARY | 2024-12-06 20:58 | External Medical Summary | Summary of Care ---
Author Name Unknown Organization [facility] Address [address] [place] [address] Phone [phone] Care Team Providers Care Fence Supervisor Name Role Phone Kristie Franks MD Primary Care Prov ider Reason for Visit * Reason Onset Date Comments Advice 07/26/2024 Surgery /calling back to give different phone number for the provider in [place] Encounter Details Date Type Department Care Team ([facility] Contact Info) Description 07/26/2024 Telephone Family [address] [phone] Kristie Franks MD [address] [place] [address] Advice (Surgery /calling back to give [...] CKD stage, unspecified whether jail insulin use (HCC) Test once Daily Dx [...] (PFIZER-Comirnaty) 07/18/2023 Pneumococcal Conjugate Vacci ne, 20-valent ([id number]) 04/29/2023 Seasonal Influenza Vac., MDV , IM, [...] Pt calling again to request referral to [place] surgeon for tremors. Please review 07.28.24 neurotology [...] to get brain surgery at the [facility] to help with her shakiness.She is asking for an order/ referral. Their phone number is: [phone]-Dr Faizan Weathers. Patient calling back and stating that the correct phone number for Dr. Faustino Weathers is [phone] * Telephone Encounter - Cydney Carey OSA - 07/26/2024 10:04 AM EST Pt calling would like to get brain surgery at the [facility] to help with her shakiness.She is asking for an order/ referral. Their phone number is: [phone]-Dr Faizan Weathers. documented in this encounter Plan of Treatment Upcoming Encounters Date Type Department Care Team (Late st Contact Info) Description 08/17/2024 2:00 PM EST Office Visit Cardiology, [facility] [address] [place] [address] Jignesh Zacarias PA-C [address] [place] [address] 09/07/2024 2:30 PM EST Office Visit Interventional Pain Center, [facility] 132 [place] [address] Kaity Damian PA-C [address] [place] [address] 09/13/2024 2:00 PM EST Office Visit Audiology [facility] 132 [place] [address] Kaitlin Mcintyre Au.D. [address] [place] [address] 10/05/2024 2:00 PM EST Office Visit Family Medicine [address] [place] [phone] Lars Vidal [address] [place] [address] 01/25/2025 3:40 PM EDT Office Visit Neurology [facility] [address] Otilio Bee MD [address] [place] [address] 03/16/2025 1:00 PM EDT Office Visit Family Medicine [address] [place] [address] Kristie Franks MD [address] [place] [address] [place] [phone] Scheduled Procedures Name Priority Associated Diagnoses Date/Ti [...] filedocumented as of this encounter Care Teams Fence Supervisor Relationship Specialty Start Date End Date Kristie Franks MD [address] [place] [address] [place] [address] PCP - General Family Medicine 11/18/22 documented as of this encounter
--- OUTSIDE RECORDS SUMMARY | 2024-12-06 20:58 | External Medical Summary | Summary of Care ---
Author Name Unknown Organization [facility] Address [address] [place] [address] Phone [phone] Care Team Providers Care Surveyor Oil Well Directional Name Role Phone Kristie Franks MD Primary Care Prov ider Reason for Visit * Reason Onset Date Comments Advice 07/26/2024 Surgery /calling back to give different phone number for the provider in [place] Encounter Details Date Type Department Care Team ([facility] Contact Info) Description 07/26/2024 Telephone Family [address] [phone] Kristie Franks MD [address] [place] [address] Advice (Surgery /calling back to give [...] (PFIZER-Comirnaty) 07/18/2023 Pneumococcal Conjugate Vacci ne, 20-valent ([id number]) 04/29/2023 Seasonal Influenza Vac., MDV , IM, [...] at, I advised pt it was in [place] * Telephone Encounter - Kristie Franks MD [...] Pt calling again to request referral to [place] surgeon for tremors. Please review 07.28.24 neurotology [...] get brain surgery at the [facility] to help with her shakiness.She is asking for an order/ referral. Their phone number is: [phone]-Dr Faizan Weathers. Patient calling back and stating that the correct phone number for Dr. Faustino Weathers is [phone] * Telephone Encounter - Cydney Carey OSA - 07/26/2024 10:04 AM EST Pt calling would like to get brain surgery at the [facility] to help with her shakiness.She is asking for an order/ referral. Their phone number is: [phone]-Dr Faizan Weathers. documented in this encounter Plan of Treatment Upcoming Encounters Date Type Department Care Team (Late st Contact Info) Description 08/17/2024 2:00 PM EST Office Visit Cardiology, [facility] [address] [place] [address] Jginesh Zacarias PA-C [address] [place] [address] 09/07/2024 2:30 PM EST Office Visit Interventional Pain Center, [facility] [address] [place] [address] Kaity Damian PA-C [address] [place] [address] 09/13/2024 2:00 PM EST Office Visit Audiology [facility] 132 [place] [address] Kaitlin Mcintyre Au.D. 132 [place] [address] 10/05/2024 2:00 PM EST Office Visit [address] [phone] Lars Vidal CRNP [address] [place] [address] [place] [address] 01/25/2025 3:40 PM EDT Office Visit Neurology [facility] 200 [place] [address] Otilio Bee MD [address] [place], [place] [address] 03/16/2025 1:00 PM EDT Office Visit Family [address] [phone] Kristie Franks MD [address] [place] [address] [place] [address] Scheduled Procedures Name Priority Associated Diagnoses Date/Ti [...] filedocumented as of this encounter Care Teams Surveyor Oil Well Directional Relationship Specialty Start Date End Date Kristie Franks MD NPI: [id number] [place] [address] [place] [address] PCP - General Family Medicine 11/18/22 documented as of this encounter
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
--- OUTSIDE RECORDS SUMMARY | 2024-12-06 20:59 | External Medical Summary | Summary of Care ---
Author Name Unknown Organization [facility] Address [address] [place] [address] Phone [phone] Care Team Providers Care Welder Explosion Name Role Phone Kristie Franks MD Primary Care Prov ider Reason for Visit * Reason Onset Date Comments Advice 07/09/2024 Encounter Details Date Type Department Care Team (Late st Contact Info) Description 07/09/2024 Telephone Family Medicine [address] [phone] Kristie Franks MD [address] [place] [address] [place] [address] Advice Allergies Active Allergy Reactions Criticality Noted Date Comments Latex 04/04/2009 Penicillins Low 03/24/2023 "It makes my bottom sore" documented as of this encounter (statuses as of 07/13/2024) Medications Medication Sig Dispensed Refills Start Date End Date Status Escitalopram Oxalate 20 MG Oral Tablet (Lexapro) Take 1 Tablet by mouth in the morning. 09/28/2022 Active Austedo 12 MG Oral Tablet Take 2 Tablets by mouth in the morning and 2 Tablets before bedtime. 10/29/2022 Active OneTouch UltraSoft LancetsIndications:Ty pe 2 diabetes mellitus with diabetic chronic kidney disease, unspecified CKD stage, unspecified whether nursing home insulin use (HCC) Test once Daily Dx E11.9 100 Each 3 01/20/2023 Active OLANZapine 10 MG Oral Tablet (zyPREXA) TAKE ONE TABLET BY MOUTH DAILY 45 Tablet 07/28/2023 Active Rosuvastatin Calcium 20 MG Oral Tablet (Crestor)Indications: Hyperlipidemia with target LDL less than 70 Take 1 Tablet by mouth in the morning. 90 Tablet 1 12/25/2023 Active Pramipexole Dihydrochloride 0.5 MG Oral Tablet (Mirapex) Take 1 Tablet by mouth at bedtime. 90 Tablet 1 04/07/2024 Active busPIRone HCl 10 MG Oral Tablet (Buspar) Take 1 Tablet by mouth in the morning and 1 Tablet before bedtime. Active Clopidogrel Bisulfate 75 MG Oral Tablet (pLAVix)Indications:I diopathic cardiomyopathy (HCC) Take 1 Tablet by mouth in the morning. 90 Tablet 1 07/05/2024 Active metFORMIN HCl ER 500 MG Oral Tablet Extended Release 24 Hour (Glucophage XR) Take 1 Tablet by mouth in the morning. 90 Tablet 3 07/05/2024 Active oxyCODONE-Acetaminoph en 10-325 MG Oral TabletIndications:Dis c disorder of lumbar region,Chronic pain syndrome,Chronic right-sided low back pain with right-sided sciatica Take 1 Tablet by mouth in the morning and 1 Tablet in the evening. 20 Tablet 07/05/2024 Active Lisinopril 10 MG Oral Tablet (Prinivil)Indications :Idiopathic cardiomyopathy (HCC) Take 1 Tablet by mouth in the morning. 90 Tablet 3 07/05/2024 Active Carvedilol 12.5 MG Oral Tablet (Coreg)Indications:Id iopathic cardiomyopathy (HCC) Take 1 Tablet by mouth in the morning and 1 Tablet before bedtime. 180 Tablet 3 07/05/2024 Active Polyethylene Glycol 3350 17 GM/SCOOP Oral Powder (MiraLax)Indications: Drug induced constipation Take 17 g by mouth [...] days, call your PCP. 238 g 1 07/05/2024 Active Fluticasone Propionate 50 MCG/ACT Nasal Suspension (Flonase)Indications: Dysfunction of left eustachian tube Administer 2 Sprays into each nostril in the morning. 10 mL 5 07/05/2024 Active hydrOXYzine HCl 50 MG Oral TabletIndications:Adj ustment insomnia Take 1 Tablet by mouth at bedtime. 30 Tablet 5 07/05/2024 Active documented as of this encounter (statuses as of 07/13/2024) Active Problems Problem Noted Date Diagnosed Date [...] Anemia 10/25/2011 HTN, GOAL BELOW 140/90 07/14/2009 Overview: Modified per HTN Taxonomy. Other disorder of eating of nonorganic origin Bipolar disorder 12/30/2008 Disc disorder of lumbar region 06/27/2008 Restless legs syndrome 10/09/2007 MEDICATION USE AGREEMENT 08/25/2007 GENERAL OSTEOARTHROSIS 09/06/2002 Major depressive disorder 06/23/2001 Overview: ICD-10 update of inactive term Kidney disease, chronic, stage II (GFR 60-89 ml/ min) documented as of this encounter (statuses as of 07/13/2024) Resolved Problems Problem Noted Date Diagnosed Date Resolved Date Alzheimer's disease, unspecified (CODE) 02/09/2024 04/07/2024 Type 2 diabetes mellitus wit h diabetic chronic kidney disease 11/13/2022 02/09/2024 Idiopathic cardiomyopathy 09/17/2011 Secondary parkinsonism 10/09/200702/08 BENIGN HYPERTENSION 09/06/2002 07/14/20 09 Overview: Modified per HTN Taxonomy. documented as of this encounter (statuses as of 07/13/2024) Immunizations Name Administration Dates Next Due COVID-19 mRNA, LNP-s, No Pre serve, 2-Dose Series ([email or web address]) 05/01/2021 COVID-19, MRNA-LNP, PF, 30 M CG/0.3 mL, 12 YRS AND ABOVE, IM (PFIZER-Comirnaty) 07/18/2023 Pneumococcal Conjugate Vacci ne, 20-valent ([id number]) 04/29/2023 Seasonal Influenza Vac., MDV , IM, [...] drink = 0.6 oz pur e alcohol) Hunger Vital Sign Answer Date Recorded Within [...] ages 0-17 years) Not on file 04/22/2024 Sex and Gender Information Value Date Recorded Sex Assigned at Not on file Gender Identity Not on file Sexual Orientation Not on file Job Start Date Occupation Industry Not on file Not on file Not on file documented as of this encounter Miscellaneous Notes * Telephone Encounter - Li Valero PHARM Tech - 07/13/2024 2:43 PM EST Pt calling to request Pramipexole Dihydrochloride. Informed pt that RX is available at their pharmacy. Pt verbalized understanding and stated they will check with their pharmacy regarding this medication. Thank you, [facility] Electric Wheelchair Repairer II [facility] 07/13/2024, 2:43 PM * Telephone Encounter - Elizabeth Yap RN - 07/12/2024 1:12 PM EST Pramipexole was sent to [facility] 04/07/24 for 90 days with a refill. Not due until Sep I called the patient and she said she lost the bottle. I advised her to call [facility], they shouldhave it on file * Telephone Encounter - Beryl Winston OSA - 07/09/2024 12:31 PM EDT Pt is requesting refill for her restless leg syndrome medication. Pt stated she hasn't slept in 3 days. Please advise. documented in this encounter Plan of Treatment Upcoming Encounters Date Type Department Care Team (Late st Contact Info) Description 08/17/2024 2:00 PM EST Office Visit Cardiology, [facility] [address] [place] [address] Jignesh Zacarias PA-C [address] [place] [address] 09/07/2024 2:30 PM EST Office Visit Interventional Pain Center, [facility] [address] [place] [address] Kaity Damian PA-C [address] [place] [address] 09/13/2024 2:00 PM EST Office Visit Audiology [facility] [address] [place] [address] Kaitlin Mcintyre Au.D. [address] [place] [address] 10/05/2024 2:00 PM EST Office Visit [address] [phone] Lars Vidal CRNP [address] [place] [address] [place] [address] 03/16/2025 1:00 PM EDT Office Visit [address] [phone] Kristie Franks MD [address] [place] [address] [place] [address] Scheduled Procedures Name Priority Associated Diagnoses Date/Ti me COLONOSCOPY FLEXIBLE PROXIMA L DIAGNOSTIC Recall Special screening for malignant neoplasms, colon Health Maintenance Due Date Last Done Comments Cologuard 1995 Fecal Occult Blood Test 1995 Sigmoidoscopy 1995 Zoster Vaccines (1 of 2) 02/04/2000 Adult Wellness Visit 02/04/2016 DTap/Tdap Vaccines (2 - Td or Tdap) 02/28/2018 02/29/2008 Diabetic Foot Exam 04/29/2024 04/29/2023 COVID-19 Vaccine ( - season) 2024 07/18/2023, [...] filedocumented as of this encounter Care Teams Welder Explosion Relationship Specialty Start Date End Date Kristie Franks MD [address] [place] [address] [place] [phone] PCP - General Family Medicine 11/18/22 documented as of this encounter
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
--- OUTSIDE RECORDS SUMMARY | 2024-12-06 20:59 | External Medical Summary | Summary of Care ---
Author Name Unknown Organization [facility] Address [address] [place] [address] Phone [phone] Care Team Providers Care Threading Machine Tender Name Role Phone Kristie Franks MD Primary Care Prov ider Reason for Visit * Reason Onset Date Comments Order Request 07/21/2024 She would like t o know why MG were decreased. Encounter Details Date Type Department Care Team ([facility] Contact Info) Description 07/21/2024 Telephone Family Medicine [address] [phone] Kristie Franks MD [address] [place] [address] Order Request (She would like to know why ... Allergies Active Allergy Reactions Criticality Noted Date Comments Latex 04/04/2009 Penicillins Low 03/24/2023 "It makes my bottom sore" documented as of this encounter (statuses as of 07/23/2024) Medications Escitalopram Oxalate 20 MG Oral Tablet (Lexapro) Take 1 Tablet by mouth in the morning. 09/28/19 Active Austedo 12 MG Oral Tablet Take 2 Tablets by mouth in the morning and 2 Tablets before bedtime. 10/29/19 23 Active OneTouch UltraSoft LancetsIndications: Type 2 diabetes mellitus with diabetic chronic kidney disease, unspecified CKD stage, unspecified whether gas pumper insulin use (HCC) Test once Daily Dx E11.9 100 Each 3 01/21/20 23 Active OLANZapine 10 MG Oral Tablet (zyPREXA) TAKE ONE TABLET BY MOUTH DAILY 45 Tablet 07/28/20 23 Active Rosuvastatin Calcium 20 MG Oral Tablet (Crestor)Indication s:Hyperlipidemia with target LDL less than 70 Take 1 Tablet by mouth in the morning. 90 Tablet 1 12/25/19 24 Active Pramipexole Dihydrochloride 0.5 MG Oral Tablet (Mirapex) Take 1 Tablet by mouth at bedtime. 90 Tablet 1 04/07/20 24 Active busPIRone HCl 10 MG Oral [...] in the evening. 60 Tablet 07/22/20 24 Active oxyCODONE-Acetamino phen 10-325 MG Oral TabletIndications:D isc disorder of lumbar region,Chronic pain syndrome,Chronic right-sided low back pain with right-sided sciatica Take 1 Tablet by mouth in the morning and 1 Tablet in the evening. 20 Tablet 07/05/20 24 024 Discontin ued(Refil l) documented as of this encounter (statuses as of 07/23/2024) Active Problems Problem Noted Date Diagnosed Date [...] as of this encounter (statuses as of 07/23/2024) Resolved Problems Problem Noted Date Diagnosed Date Resolved Date Alzheimer's disease, unspecified (CODE) 02/09/2024 04/07/2024 Type 2 diabetes mellitus wit h diabetic chronic kidney disease 11/13/2022 02/09/2024 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 documented as of this encounter (statuses as of 07/23/2024) Immunizations Name Administration Dates Next Due COVID-19 mRNA, LNP-s, No Pre serve, 2-Dose Series (Pfizer) 05/01/2021 COVID-19, MRNA-LNP, PF, 30 M CG/0.3 mL, 12 YRS AND ABOVE, IM (PFIZER-Comirnaty) 07/18/2023 Pneumococcal Conjugate Vacci ne, 20-valent ([id number]) 04/29/2023 Seasonal Influenza Vac., MDV , IM, [...] No 04/22/2024 Does the household have a [facility] source of income? (Household - for ages [...] encounter Miscellaneous Notes * Telephone Encounter - Justyna Carpenter nondestructive tester - 07/23/2024 10:13 AM EST Patient calling in to make sure the prescription was sent to the pharmacy. Justyna Krishnamurthy Primary Products Inspectors II [facility] 07/23/2024 10:14 AM * Telephone Encounter - Elizabeth Yap RN - 07/21/2024 4:01 PM EST Pending Prescriptions: Disp Refills oxyCODONE-Acetaminophen 10-325 MG Oral Ta*20 Tab*0 Sig: Take 1 Tablet by mouth in the morning and 1 Tablet in the evening. Last Visit: 07/05/2024 (in office), Visit date not found (telemedicine) Next Visit: 10/05/2024 Last date the medication was ordered: 07/05/24 (only 20 tabs given) Patient Active Problem List Diagnosis Major depressive [...] stenosis of lumbar region without neurogenic claudication Labs: Lab Results Component Value Date/Time CREATININE - [facility] 1.0 02/09/2024 09:37 AM CREATININE - [facility] 0.68 04/07/2021 06:33 AM CREATININE - [facility] 1.0 11/05/2013 04:10 PM CREATININE [place] - [facility] 44 11/13/2022 10:56 AM CREATININE, RANDOM URINE - [facility] 72 02/09/2024 09:37 AM Lab Results Component Value Date/Time POTASSIUM - [facility] 4.5 02/09/2024 09:37 AM POTASSIUM - [facility] 3.8 04/07/2021 06:33 AM POTASSIUM - [facility] 3.7 11/05/2013 04:10 PM Lab Results Component Value Date/Time TSH - [facility] 1.10 02/16/2024 12:43 PM TSH - [facility] 1.52 01/13/2010 11:01 AM Lab Results Component Value Date/Time LDL CHOLESTEROL (CALCULATED) - [facility] 47 02/09/2024 09:37 AM LDL CHOLESTEROL (CALCULATED) - [facility] 175 (H) 11/13/2022 10:58 AM LDL CHOLESTEROL (CALCULATED) - [facility] 146 (H) 03/05/2011 10:20 AM LDL CHOLESTEROL (CALCULATED) - [facility] 128 06/05/2005 12:17 PM Lab Results Component Value Date/Time ALT - [facility] 9 (L) 02/09/2024 09:37 AM ALT - [facility] 11 03/05/2011 10:20 AM Hemoglobin AIC Results: Lab Results Component Value Date/Time HEMOGLOBIN A1C - [facility] 5.5 02/09/2024 09:37 AM HEMOGLOBIN A1C - [facility] 5.3 04/29/2023 11:47 AM HEMOGLOBIN A1C - [facility] 5.6 11/13/2022 10:58 AM HEMOGLOBIN A1C - [facility] 5.2 12/02/2008 08:16 AM * Telephone Encounter - Mariia Dickerson OSA - 07/21/2024 2:35 PM EST An order was requested for this patient. Name of Requesting Provider: Kristie Franks Order Requested: oxyCODONE-Acetaminophen 10-325 MG Oral Tablet Diagnosis/Reason for Request: ran out If order request is for Mammogram: Is the patient having any breast symptoms? N/A Is there a chance of ? N/A Has the patient had any breast problems in the past? NA What location AND department does the patient wish to have their order completed at? [facility] Fax Number, if applicable: If the caller is not a current [...] 08/17/2024 2:00 PM EST Office Visit Cardiology, [facility] [address] [place] [address] Jignesh Zacarias PA-C [address] [place] [address] 09/07/2024 2:30 PM EST Office Visit Interventional Pain Center, [facility] [address] [place] [address] Kaity Damian PA-C [address] [place] [address] 09/13/2024 2:00 PM EST Office Visit Audiology [facility] [address] [place] [address] Kaitlin Mcintyre Au.D. [address] [place] [address] 10/05/2024 2:00 PM EST Office Visit [address] [place] [phone] Lars Vidal CRNP [address] [place] [address] [place] [address] 03/16/2025 1:00 PM EDT Office Visit [address] [place] [phone] Kristie Franks MD [address] [place] [address] [place] [address] Scheduled Procedures Name Priority Associated Diagnoses Date/Ti [...] sciatica documented in this encounter Care Teams Threading Machine Tender Relationship Specialty Start Date End Date Kristie Franks MD [address] [place] [address] [place] [address] PCP - General Family Medicine 11/18/22 documented as of this encounter
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
--- OUTSIDE RECORDS SUMMARY | 2024-12-06 20:59 | External Medical Summary | Summary of Care ---
Author Name Unknown Organization [facility] Address [address] [place] [address] Phone [phone] Care Team Providers Care Art Editor Name Role Phone Kristie Franks MD Primary Care Prov ider Reason for Visit * Reason Onset Date Comments Order Request 07/21/2024 She would like t o know why MG were decreased. Encounter Details Date Type Department Care Team ([facility] Contact Info) Description 07/21/2024 Telephone Family Medicine [address] [phone] Kristie Franks MD [address] [place] [address] Order Request (She would like to know why ... Allergies Active Allergy Reactions Criticality Noted Date Comments Latex 04/04/2009 Penicillins Low 03/24/2023 "It makes my bottom sore" documented as of this encounter (statuses as of 07/22/2024) Medications Escitalopram Oxalate 20 MG Oral Tablet [...] as of this encounter (statuses as of 07/22/2024) Active Problems Problem Noted Date Diagnosed Date [...] as of this encounter (statuses as of 07/22/2024) Resolved Problems Problem Noted Date Diagnosed Date Resolved Date Alzheimer's disease, unspecified (CODE) 02/09/2024 04/07/2024 Type 2 diabetes mellitus wit h diabetic chronic kidney disease 11/13/2022 02/09/2024 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 documented as of this encounter (statuses as of 07/22/2024) Immunizations Name Administration Dates Next Due COVID-19 mRNA, LNP-s, No Pre serve, 2-Dose Series (Pfizer) 05/01/2021 COVID-19, MRNA-LNP, PF, 30 M CG/0.3 mL, 12 YRS AND ABOVE, IM (PFIZER-Comirnaty) 07/18/2023 Pneumococcal Conjugate Vacci ne, 20-valent ([id number]) 04/29/2023 Seasonal Influenza Vac., MDV , IM, [...] Does the household have a [facility] source of income? (Household - for ages [...] wish to have their order completed at? [facility] Fax Number, if applicable: If the caller [...] 08/17/2024 2:00 PM EST Office Visit Cardiology, [facility] [address] [place] [address] Jignesh Zacarias PA-C [address] [place] [address] 09/07/2024 2:30 PM EST Office Visit Interventional Pain Center, [facility] [address] [place] [address] Kaity Damian PA-C [address] [place] [address] 09/13/2024 2:00 PM EST Office Visit Audiology [facility] [address] [place] [address] Kaitlin Mcintyre Au.D. [address] [place] [address] 10/05/2024 2:00 PM EST Office Visit [address] [place] [phone] Lars Vidal CRNP [address] [place] [address] [place] [address] 03/16/2025 1:00 PM EDT Office Visit [address] [phone] Kristie Franks MD [address] [place] [address] [place] [address] Scheduled Procedures Name Priority Associated Diagnoses Date/Ti [...] Monitoring 04/12/2025 04/12/2024 Lipid Panel 02/08/2029 02/09/2024, 0304/2023, 03/05/2011, Additional history exists DXA Scan 04/28/2030 [...] sciatica documented in this encounter Care Teams Art Editor Relationship Specialty Start Date End Date Kristie Franks MD [address] [place] [address] [place] [address] PCP - General Family Medicine 11/18/22 documented as of this encounter
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
--- OUTSIDE RECORDS SUMMARY | 2024-12-06 20:59 | External Medical Summary | Summary of Care ---
Author Name Unknown Organization [facility] Address [address] [place] [address] Phone [phone] Care Team Providers Care Airplane Coverer Name Role Phone Kristie Franks MD Primary Care Prov ider Reason for Referral * Evaluate & Treat - Unlimited Visits (Within 30 days (routine)) - Authorized Specialty Diagnoses / Procedures Referred By Toni hoffman Referred To Contact Neurology Diagnoses Tremors of nervous system Restless legs syndrome Mia Puga PA-C [address] [place] [address] Phone: tel: fax: Referral ID Status Reason Start Date Expiration Date Visits Requested Visits Authorized [id number] Authorized Specialty Services Required 4 [phone] Question Answer Referral Priority Within 30 days (routine) [facility] NEUROLOGY REFERRAL QUESTIONS Movement Does the patient's condition allow them to wait to be seen by a specialist or should they be seen by first available provider? Or is this a follow up with established provider? Specialist Where should this appointment be scheduled? Gypsy Comments Movement specialist either in our office or nearer to home if possible. Thank you Reason for Visit * Reason Comments NEW PATIENT Tremor * Evaluate & Treat - Unlimited Visits (Within 10 days (routine)) - Authorized Specialty Diagnoses / Procedures Referred By Toni hoffman Referred To Contact Neurology Diagnoses Tremors of nervous system History of CVA (cerebrovascular accident) Bipolar affective disorder in remission (HCC) Kristie Franks MD [address] [place] [address] [place] [address] Phone: tel: fax: Referral ID Status Reason Start Date Expiration Date Visits Requested Visits Authorized [id number] Authorized Specialty Services Required 4 [phone] Encounter Details Date Type Department Care Team (Late st Contact Info) Description 07/28/2024 8:00 AM EST Office Visit Neurology [facility] [address] [facility] [place] [address] Mia Puga PA-C [address] [place] [address] Tremors of nervous system*; Restless legs syndrome Allergies Active Allergy Reactions Criticality Noted Date Comments Latex 04/04/2009 Penicillins Low 03/24/2023 "It makes my bottom sore" documented as of this encounter (statuses as of 07/28/2024) Medications Escitalopram Oxalate 20 MG Oral Tablet (Lexapro) Take 1 Tablet by mouth in the morning. 09/28/19 23 Active Austedo 12 MG Oral Tablet Take 2 Tablets by mouth in the morning and 2 Tablets before bedtime. 10/29/19 23 Active OneTouch UltraSoft LancetsIndications: Type 2 diabetes mellitus with diabetic chronic kidney disease, unspecified CKD stage, unspecified whether terminal carman insulin use (HCC) Test once Daily Dx [...] your PCP. 238 g 1 07/05/20 Active Fluticasone Propionate 50 MCG/ACT Nasal Suspension [...] the evening. 60 Tablet 07/22/20 24 Active documented as of this encounter (statuses as of 07/28/2024) Active Problems Problem Noted Date Diagnosed Date [...] as of this encounter (statuses as of 07/28/2024) Resolved Problems Problem Noted Date Diagnosed Date Resolved Date Alzheimer's disease, unspecified (CODE) 02/09/2024 04/07/2024 Type 2 diabetes mellitus wit h diabetic chronic kidney disease 11/13/2022 02/09/2024 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 documented as of this encounter (statuses as of 07/28/2024) Immunizations Name Administration Dates Next Due COVID-19 mRNA, LNP-s, No Pre serve, 2-Dose Series (Pfizer) 05/01/2021 COVID-19, MRNA-LNP, PF, 30 M CG/0.3 mL, 12 YRS AND ABOVE, IM (PFIZER-Comirnaty) 07/18/2023 Pneumococcal Conjugate Vacci ne, 20-valent ([id number]) 04/29/2023 Seasonal Influenza Vac., MDV , IM, [...] Sign Reading Time Taken Comments Blood Pressure 110/70 07/28/2024 8:13 AM EST Pulse 58 07/28/2024 8:13 AM EST Temperature - - Respiratory Rate 18 07/28/2024 8:13 AM EST Oxygen Saturation 92% 07/28/2024 8:13 AM EST Inhaled Oxygen Concentration - - Weight 85.7 kg (189 lb) 07/28/2024 8:13 AM EST Height - - Body Mass Index 31.45 02/04/2024 9:08 AM EDT documented in this encounter Patient Instructions * Patient Instructions* Mia Puga PA-C - 07/28/2024 8:37 AM EST Recommend purchasing wrist weight for tremor management and referral to movement specialist. documented in this encounter Nursing Notes * Kathryn Goodwin RN - 07/28/2024 8:15 AM EST New patient today referred by PCP for tremor. Mini mental done. Speech is slurred and deliberate. documented in this encounter Plan of Treatment Upcoming Encounters Date Type Department Care Team (Late st Contact Info) Description 08/17/2024 2:00 PM EST Office Visit [facility], [facility] [address] [facility] [place] [address] Jignesh Zacarias PA-C [address] [place] [address] 09/07/2024 2:30 PM EST Office Visit Interventional Pain Center, [facility] 132 [place] [address] Kaity Damian PA-C 132 [place] [address] 09/13/2024 2:00 PM EST Office Visit Audiology [facility] 132 [place] [address] Kaitlin Mcintyre Au.D. 132 [facility] [place] [address] 10/05/2024 2:00 PM EST Office Visit Family [address] [phone] Lars Vidal CRNP [address] [place] [address] [place] [address] 01/25/2025 3:40 PM EDT Office Visit Neurology [facility] [address] [place] [address] Otilio Bee MD [address] [place], [place] [id number] 03/16/2025 1:00 PM EDT Office Visit Family [address] [phone] Kristie Franks MD [address] [place] [address] [place] [address] Scheduled Procedures Name Priority Associated Diagnoses Date/Ti me COLONOSCOPY FLEXIBLE PROXIMA L DIAGNOSTIC Recall Special screening for malignant neoplasms, colon Scheduled Referrals Name Type Priority Associated Diagnoses Orde r Schedule ADULT NEUROLOGY REFERRAL OP Referral Within 30 days (routine) Tremors of nervous system Restless legs syndrome Ordered: 07/28/2024 Health Maintenance Due Date Last Done Comments [...] of nervous system- Primary Abnormal involuntary movements Restless legs syndrome Restless legs syndrome (RLS) documented in this encounter Care Teams Airplane Coverer Relationship Specialty Start Date End Date Kristie Franks MD [address] [place] [address] [place] [phone] PCP - General Family Medicine 11/18/22 documented as of this encounter
--- OUTSIDE RECORDS SUMMARY | 2024-12-06 20:59 | External Medical Summary | Summary of Care ---
Author Name Unknown Organization [facility] Address [address] [place] [address] Phone [phone] Care Team Providers Care Mill Control Operator Name Role Phone Kristie Franks MD Primary Care Prov ider Reason for Visit * Reason Onset Date Comments Durable Medical Equipment 07/15/2024 Encounter Details Date Type Department Care Team (Late st Contact Info) Description 07/15/2024 Telephone Family Medicine [address] [phone] Kristie Franks MD [address] [place] [address] Durable Medical Equipment Allergies Active Allergy [...] kidney disease, unspecified CKD stage, unspecified whether braid maker insulin use (HCC) Test once Daily Dx [...] (PFIZER-Comirnaty) 07/18/2023 Pneumococcal Conjugate Vacci ne, 20-valent ([id number]) 04/29/2023 Seasonal Influenza Vac., MDV , IM, [...] encounter Miscellaneous Notes * Addendum Note - Kristie Franks MD [...] below Please fax lift chair order to [facility] [phone] if appropriate Thank you, Lei Giraldo ([facility]) Diamond Sizer And Grader III [facility] ([facility]) 07/15/2024, [...] on fire. Pt can be reached at: [phone] Thank you, Sarah Hurtado Rail Gang Supervisor I [facility] ([facility]) 07/15/2024,3:03 PM documented in this encounter Plan of Treatment Upcoming Encounters Date Type Department Care Team (Late st Contact Info) Description 08/17/2024 2:00 PM EST Office Visit Cardiology, [facility] [address] [place] [address] Jignesh Zacarias PA-C [address] [address] 09/07/2024 2:30 PM EST Office Visit Interventional Pain Center, [facility] [address] [place] [address] Kaity Damian PA-C [address] [place] [address] 09/13/2024 2:00 PM EST Office Visit Audiology [facility] [address] [place] [address] Kaitlin Mcintyre Au.D. 132 [place] [address] 10/05/2024 2:00 PM EST Office Visit [address] [phone] Lars Vidal CRNP [address] [place] [address] [place] [address] 03/16/2025 1:00 PM EDT Office Visit Family Medicine [address] [place] [phone] Kristie Franks MD [address] [place] [address] [place] [address] Scheduled Procedures Name Priority Associated Diagnoses Date/Ti [...] claudication documented in this encounter Care Teams Mill Control Operator Relationship Specialty Start Date End Date Kristie Franks MD [address] [place] [address] [place] [address] PCP - General Family Medicine 11/18/22 documented as of this encounter
--- OUTSIDE RECORDS SUMMARY | 2024-12-06 20:59 | External Medical Summary | Summary of Care ---
Author Name Unknown Organization [facility] Address [address] [place] [address] Phone [phone] Care Team Providers Care Track Helper Name Role Phone Kristie Franks MD Primary Care Prov ider Reason for Visit * Reason Onset Date Comments Advice 07/26/2024 Surgery /calling back to give different phone number for the provider in [place] Encounter Details Date Type Department Care Team ([facility] Contact Info) Description 07/26/2024 Telephone Family [address] [phone] Kristie Franks MD [address] [place] [address] Advice (Surgery /calling back to give diff... Allergies Active Allergy Reactions Criticality Noted Date Comments Latex 04/04/2009 Penicillins Low 03/24/2023 "It makes my bottom sore" documented as of this encounter (statuses as of 07/29/2024) Medications Escitalopram Oxalate 20 MG Oral Tablet (Lexapro) Take 1 Tablet by mouth in the morning. 09/28/19 Active Austedo 12 MG Oral Tablet Take 2 Tablets by mouth in the morning and 2 Tablets before bedtime. 10/29/19 Active OneTouch UltraSoft LancetsIndications: Type 2 diabetes mellitus with diabetic chronic kidney disease, unspecified CKD stage, unspecified whether termite control technician insulin use (HCC) Test once Daily Dx [...] as of this encounter (statuses as of 07/29/2024) Active Problems Problem Noted Date Diagnosed Date [...] as of this encounter (statuses as of 07/29/2024) Resolved Problems Problem Noted Date Diagnosed Date Resolved Date Alzheimer's disease, unspecified (CODE) 02/09/2024 04/07/2024 Type 2 diabetes mellitus wit h diabetic chronic kidney disease 11/13/2022 02/09/2024 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 documented as of this encounter (statuses as of 07/29/2024) Immunizations Name Administration Dates Next Due COVID-19 mRNA, LNP-s, No Pre serve, 2-Dose Series (Pfizer) 05/01/2021 COVID-19, MRNA-LNP, PF, 30 M CG/0.3 mL, 12 YRS AND ABOVE, IM (PFIZER-Comirnaty) 07/18/2023 Pneumococcal Conjugate Vacci ne, 20-valent ([id number]) 04/29/2023 Seasonal Influenza Vac., MDV , IM, [...] ages 0-17 years) Not on file 04/22/2024 Are you homeless or worried that [...] like to get brain surgery at the [facility] to help with her shakiness.She is asking for an order/ referral. Their phone number is: [phone]-Dr Faizan Weathers. Patient calling back and stating that the correct phone number for Dr. Faustino Weathers is [phone] * Telephone Encounter - Cydney Carey OSA - 07/26/2024 10:04 AM EST Pt calling would like to get brain surgery at the [facility] to help with her shakiness.She is asking for an order/ referral. Their phone number is: [phone]-Dr Faizan Weathers. documented in this encounter Plan of Treatment Upcoming Encounters Date Type Department Care Team (Late st Contact Info) Description 08/17/2024 2:00 PM EST Office Visit Cardiology, [facility] [address] [place] [address] Jignesh Zacarias PA-C [address] [place] [address] 09/07/2024 2:30 PM EST Office Visit Interventional Pain Center, [facility] [address] [place] [address] Kaity Damian PA-C [address] [place] [address] 09/13/2024 2:00 PM EST Office Visit Audiology [facility] [address] [place] [address] Kaitlin Mcintyre Au.D. [address] [place] [address] 10/05/2024 2:00 PM EST Office Visit Family [address] [phone] Lars Vidal CRNP [address] [place] [address] [place] [address] 01/25/2025 3:40 PM EDT Office Visit Neurology [facility] [address] [facility] [place] [address] Otilio Bee MD [address] [place], [place] [id number] 03/16/2025 1:00 PM EDT Office Visit Family Medicine [address] [phone] Kristie Franks MD [address] [place] [address] [place] [address] Scheduled Procedures Name Priority Associated Diagnoses Date/Ti [...] Additional history exists Albumin/Creatinine Ratio 02/08/2025 02/09/2024, /0 04/2023 GFR 02/08/2025 02/09/2024, 04/09, 11/13/2022, Additional [...] filedocumented as of this encounter Care Teams Track Helper Relationship Specialty Start Date End Date Kristie Franks MD [address] [place] [address] [place] [address] PCP - General Family Medicine 11/18/22 documented as of this encounter
--- OUTSIDE RECORDS SUMMARY | 2024-12-06 20:59 | External Medical Summary | Summary of Care ---
Author Name Unknown Organization [facility] Address [address] [place] [address] Phone [phone] Care Team Providers Care Spindle Sander Name Role Phone Kristie Franks MD Primary Care Prov ider Reason for Visit * Reason Onset Date Comments Advice 07/26/2024 Surgery /calling back to give different phone number for the provider in [place] Encounter Details Date Type Department Care Team ([facility] Contact Info) Description 07/26/2024 Telephone Family [address] [phone] Kristie Franks MD [address] [place] [address] Advice (Surgery /calling back to give [...] (PFIZER-Comirnaty) 07/18/2023 Pneumococcal Conjugate Vacci ne, 20-valent ([id number]) 04/29/2023 Seasonal Influenza Vac., MDV , IM, [...] Pt calling again to request referral to [place] surgeon for tremors. Please review 07.28.24 neurotology [...] to get brain surgery at the [facility] to help with her shakiness.She is asking for an order/ referral. Their phone number is: [phone]-Dr Faizan Weathers. Patient calling back and stating that the correct phone number for Dr. Faustino Weathers is [phone] * Telephone Encounter - Cydney Carey OSA - 07/26/2024 10:04 AM EST Pt calling would like to get brain surgery at the [facility] to help with her shakiness.She is asking for an order/ referral. Their phone number is: [phone]-Dr Faizan Weathers. documented in this encounter Plan of Treatment Upcoming Encounters Date Type Department Care Team (Late st Contact Info) Description 08/17/2024 2:00 PM EST Office Visit Cardiology, [facility] [address] [facility] [place] [address] Jignesh Zacarias PA-C [address] [place] [address] 09/07/2024 2:30 PM EST Office Visit Interventional Pain Center, [facility] [address] [facility] [place] [address] Kaity Damian PA-C [address] [facility] [place] [address] 09/13/2024 2:00 PM EST Office Visit Audiology [facility] 132 [facility] [place] [address] Kaitlin Mcintyre Au.D. [address] [place] [address] 10/05/2024 2:00 PM EST Office Visit Family Medicine [address] [phone] Lars Vidal [address] [place] [address] 01/25/2025 3:40 PM EDT Office Visit Neurology [facility] [place] [address] Otilio Bee MD [address] [place] [address] 03/16/2025 1:00 PM EDT Office Visit Family Medicine [address] [phone] Kristie Franks MD [address] [place] [address] [place] [address] Scheduled Procedures Name Priority Associated Diagnoses Date/Ti [...] filedocumented as of this encounter Care Teams Spindle Sander Relationship Specialty Start Date End Date Kristie Franks MD [address] [place] [address] [place] [phone] PCP - General Family Medicine 11/18/22 documented as of this encounter
--- OUTSIDE RECORDS SUMMARY | 2024-12-06 20:59 | External Medical Summary | Summary of Care ---
Author Name Unknown Organization [facility] Address [address] [place] [address] Phone [phone] Care Team Providers Care Carburetor Rebuilder Name Role Phone Romeo Franks MD Primary Care Prov ider Reason for Visit * Reason Onset Date Comments Medication Refill 08/02/2024 Encounter Details Date Type Department Care Team (Late st Contact Info) Description 08/02/2024 Refill Family Medicine [address] [phone] Romeo Franks MD [address] [place] [address] Allergies Active Allergy Reactions Criticality Noted Date Comments Latex 04/04/2009 Penicillins Low 03/24/2023 "It makes my bottom sore" documented as of this encounter (statuses as of 08/02/2024) Medications Escitalopram Oxalate 20 MG Oral Tablet (Lexapro) Take 1 Tablet by mouth in the morning. 09/28/19 Active Austedo 12 MG Oral Tablet Take 2 Tablets by mouth in the morning and 2 Tablets before bedtime. 10/29/19 Active OneTouch UltraSoft LancetsIndications: Type 2 diabetes mellitus with diabetic chronic kidney disease, unspecified CKD stage, unspecified whether penitentiary insulin use (HCC) Test once Daily Dx [...] 1 Tablet in the evening. 60 Tablet 11/14/20 24 Active Pramipexole Dihydrochloride 0.5 MG Oral Tablet (Mirapex) Take 1 Tablet by mouth at bedtime. 90 Tablet 1 08/02/20 Active Pramipexole Dihydrochloride 0.5 MG Oral Tablet (Mirapex) Take 1 Tablet by mouth at bedtime. 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 documented as of this encounter (statuses as of 08/02/2024) Immunizations Name Administration Dates Next Due COVID-19 mRNA, LNP-s, No Pre serve, 2-Dose Series (Pfizer) 05/01/2021 COVID-19, MRNA-LNP, PF, 30 M CG/0.3 mL, 12 YRS AND ABOVE, IM (PFIZER-Comirnaty) 07/18/2023 Pneumococcal Conjugate Vacci ne, 20-valent ([id number]) 04/29/2023 Seasonal Influenza Vac., MDV , IM, [...] Miscellaneous Notes * Telephone Encounter - Romeo Franks MD - 08/02/2024 2:59 PM EST Signed Prescriptions: Disp Refills Pramipexole Dihydrochloride 0.5 MG Oral Ta*90 Tab*1 Sig: Take 1 Tablet by mouth at bedtime. Authorizing Provider: ROMEO FRANKS * Telephone Encounter - Nuha Hu, hvac mechanic - 08/02/2024 9:50 AM EST Did you pend patient's preferred pharmacy and medication before forwarding?yes Pharmacy: [facility] [address] Pending Prescriptions: Disp Refills Pramipexole Dihydrochloride 0.5 MG Oral T*90 Tab*1 Sig: Take 1 Tablet by mouth at bedtime. Last Visit: 07/05/2024 (in office), Visit date not found (telemedicine) Next Visit: 10/05/2024 If no future appointments scheduled, and last appointment is greater than a year ago, please schedule patient for a follow-up appointment Last date the medication was ordered: 04/07/2024 Is this request for a controlled substance?No [...] 08/17/2024 2:00 PM EST Office Visit Cardiology, [facility] [address] [place] [address] Jignesh Zacarias PA-C [address] [place] [address] 09/07/2024 2:30 PM EST Office Visit Interventional Pain Center, [facility] [address] [place] [address] Kaity Damian PA-C [address] [place] [address] 09/13/2024 2:00 PM EST Office Visit Audiology [facility] [address] [place] [address] Kaitlin Mcintyre Au.D. 132 [place] [address] 10/05/2024 2:00 PM EST Office Visit Family Medicine [address] [place] [phone] Lars Vidal[address] [place] [address] 01/25/2025 3:40 PM EDT Office Visit Neurology [address] [place] [address] Otilio Bee MD [address] [place] [address] 03/16/2025 1:00 PM EDT Office Visit Family Medicine [address] [phone] Romeo Franks MD [address] [place] [address] Dr [place] [phone] Scheduled Procedures Name Priority Associated Diagnoses Date/Ti [...] filedocumented as of this encounter Care Teams Carburetor Rebuilder Relationship Specialty Start Date End Date Romeo Franks MD [address] [place] [address] [place] [phone] PCP - General Family Medicine 11/18/22 documented as of this encounter
--- OUTSIDE RECORDS SUMMARY | 2024-12-06 20:59 | External Medical Summary | Summary of Care ---
Author Name Unknown Organization [facility] Address [address] [place] [address] Phone [phone] Care Team Providers Care Account Supervisor Name Role Phone Kristie Franks MD Primary Care Prov ider Reason for Visit * Reason Onset Date Comments Durable Medical Equipment 07/15/2024 Encounter Details Date Type Department Care Team (Late st Contact Info) Description 07/15/2024 Telephone Family Medicine [address] [phone] Kristie Franks MD [address] [place] [address] Durable Medical Equipment Allergies Active Allergy [...] kidney disease, unspecified CKD stage, unspecified whether pharmaceutical service representative insulin use (HCC) Test once Daily Dx [...] (PFIZER-Comirnaty) 07/18/2023 Pneumococcal Conjugate Vacci ne, 20-valent ([id number]) 04/29/2023 Seasonal Influenza Vac., MDV , IM, [...] Telephone Encounter - Alesha Santillan LPN - 07/20/2024 4:04 PM EST Faxed. * Telephone Encounter - Kristie Franks MD [...] below Please fax lift chair order to [facility] [phone] if appropriate Thank you, Lei Giraldo ([facility]) Soft Work Wrapper Examiner III [facility] ([facility]) 07/15/2024, [...] on fire. Pt can be reached at: [phone] Thank you, Sarah Hurtado Compliance Technician I [facility] ([facility]) 07/15/2024,3:03 PM documented in this encounter Plan of Treatment Upcoming Encounters Date Type Department Care Team (Late st Contact Info) Description 08/17/2024 2:00 PM EST Office Visit Cardiology, [facility] [address] [place] [address] Jignesh Zacarias PA-C [address] [place] [address] 09/07/2024 2:30 PM EST Office Visit Interventional Pain Center, [facility] [address] [place] [address] Kaity Damian PA-C [address] [place] [address] 09/13/2024 2:00 PM EST Office Visit Audiology [facility] [address] [place] [address] Kaitlin Mcintyre Au.D. [address] [place] [address] 10/05/2024 2:00 PM EST Office Visit [address] [phone] Lars Vidal CRNP [address] [place] [address] [place] [address] 03/16/2025 1:00 PM EDT Office Visit [address] [phone] Kristie Franks MD [address] [place] [address] [place] [address] Scheduled Procedures Name Priority Associated Diagnoses Date/Ti [...] claudication documented in this encounter Care Teams Account Supervisor Relationship Specialty Start Date End Date Kristie Franks MD [address] [place] [address] [place] [phone] PCP - General Family Medicine 11/18/22 documented as of this encounter
--- OUTSIDE RECORDS SUMMARY | 2024-12-06 20:59 | External Medical Summary | Summary of Care ---
Author Name Unknown Organization [facility] Address [address] [place] [address] Phone [phone] Care Team Providers Care Lining Parts Sewer Name Role Phone Kristie Franks MD Primary Care Prov ider Reason for Visit * Reason Onset Date Comments Advice 07/26/2024 Surgery /calling back to give different phone number for the provider in [place] Encounter Details Date Type Department Care Team ([facility] Contact Info) Description 07/26/2024 Telephone Family [address] [phone] Kristie Franks MD [address] [place] [address] Advice (Surgery /calling back to give [...] (PFIZER-Comirnaty) 07/18/2023 Pneumococcal Conjugate Vacci ne, 20-valent ([id number]) 04/29/2023 Seasonal Influenza Vac., MDV , IM, [...] encounter Miscellaneous Notes * Telephone Encounter - Cyndi Dixon OSA - 08/09/2024 1:12 PM EST Pt calling again to request referral to [place] surgeon for tremors. Please review 07.28.24 neurotology [...] like to get brain surgery at the [facility] to help with her shakiness.She is asking for an order/ referral. Their phone number is: [phone]-Dr Faizan Weathers. Patient calling back and stating that the correct phone number for Dr. Faustino Weathers is [phone] * Telephone Encounter - Cydney Carey OSA - 07/26/2024 10:04 AM EST Pt calling would like to get brain surgery at the [facility] to help with her shakiness.She is asking for an order/ referral. Their phone number is: [phone]-Dr Faizan Weathers. documented in this encounter Plan of Treatment Upcoming Encounters Date Type Department Care Team (Late st Contact Info) Description 08/17/2024 2:00 PM EST Office Visit Cardiology, [facility] [address] [place] [address] Jignesh Zacarias PA-C [address] [place] [address] 09/07/2024 2:30 PM EST Office Visit Interventional Pain Center, [facility] [address] [place] [address] Kaity Damian PA-C [address] [facility] [place] [address] 09/13/2024 2:00 PM EST Office Visit Audiology [facility] [address] [facility] [place] [address] Kaitlin Mcintyre Au.D. [address] [place] [address] 10/05/2024 2:00 PM EST Office Visit Family [address] [phone] Lars Vidal CRNP [address] [place] [address] [place] [address] 01/25/2025 3:40 PM EDT [facility] Visit [facility] 200 [facility] [place] [address] Otilio Bee MD [address] [place] [address] 03/16/2025 1:00 PM EDT Office Visit Family Medicine [address] [phone] Kristie Franks MD [address] [place] [address] [place] [address] Scheduled Procedures Name Priority Associated Diagnoses Date/Ti [...] filedocumented as of this encounter Care Teams Lining Parts Sewer Relationship Specialty Start Date End Date Kristie Franks MD [address] [place] [address] [place] [address] PCP - General Family Medicine 11/18/22 documented as of this encounter
--- OUTSIDE RECORDS SUMMARY | 2024-12-06 21:00 | External Medical Summary | Summary of Care ---
Author Name Unknown Organization [facility] Address [address] [place] [address] Phone [phone] Care Team Providers Care Line Service Supervisor Name Role Phone Kristie Franks MD Primary Care Prov ider Reason for Visit * Reason Onset Date Comments Medication Problem 06/16/2024 Status Check 06/14/2024 Encounter Details Date Type Department Care Team (Late st Contact Info) Description 06/14/2024 Telephone Family Medicine [address] [phone] Kristie Franks MD [address] [place] [address] Medication Problem; Status Check Allergies Active Allergy Reactions Criticality Noted Date Comments Latex 04/04/2009 Penicillins Low 03/24/2023 "It makes my bottom sore" documented as of this encounter (statuses as of 06/16/2024) Medications Medication Sig Dispensed Refills Start Date End Date Status Escitalopram Oxalate 20 MG Oral Tablet (Lexapro) Take 1 Tablet by mouth in the morning. 09/28/2022 Active Austedo 12 MG Oral Tablet Take 2 Tablets by mouth in the morning and 2 Tablets before bedtime. 10/29/2022 Active Carbidopa-Levodopa 25-100 MG Oral Tablet (Sinemet) Take 1.5 Tablets by mouth in the morning and 1.5 Tablets at noon and 1.5 Tablets in the evening. 08/23/2022 Active OneTouch UltraSoft LancetsIndications:Ty pe 2 diabetes mellitus with diabetic chronic kidney disease, unspecified CKD stage, unspecified whether usp insulin use (HCC) Test once Daily Dx E11.9 100 Each 3 01/20/2023 Active Carvedilol 12.5 MG Oral Tablet (Coreg)Indications:Id iopathic cardiomyopathy (HCC) Take 1 Tablet by mouth in the morning and 1 Tablet before bedtime. 180 Tablet 3 07/18/2023 Active hydrOXYzine HCl 25 MG Oral TabletIndications:Ins omnia, unspecified type Take 1 Tablet by mouth every night at bedtime. 30 Tablet 3 07/23/2023 Active OLANZapine 10 MG Oral Tablet (zyPREXA) TAKE ONE TABLET BY MOUTH DAILY 45 Tablet 07/28/2023 Active Rosuvastatin Calcium 20 MG Oral Tablet (Crestor)Indications: Hyperlipidemia with target LDL less than 70 Take 1 Tablet by mouth in the morning. 90 Tablet 1 12/25/2023 Active Clopidogrel Bisulfate 75 MG Oral Tablet (pLAVix)Indications:I diopathic cardiomyopathy (HCC) Take 1 Tablet by mouth in the morning. 90 Tablet 1 02/09/2024 Active Lisinopril 10 MG Oral Tablet (Prinivil)Indications :Idiopathic cardiomyopathy (HCC) Take 1 Tablet by mouth in the morning. 90 Tablet 1 02/09/2024 Active traZODone HCl 100 MG Oral Tablet (Desyrel) Take 2 Tablets by mouth at bedtime. 2024 Active Cetirizine HCl 10 MG Oral Tablet (ZyrTEC)Indications:S easonal allergic rhinitis due to pollen Take 1 Tablet by mouth in the morning. 30 Tablet 5 02/18/2024 Active metFORMIN HCl ER 500 MG Oral Tablet Extended Release 24 Hour (Glucophage XR) Take 1 Tablet by mouth in the morning. 90 Tablet 3 03/28/2024 Active Pramipexole Dihydrochloride 0.5 MG Oral Tablet (Mirapex) Take 1 Tablet by mouth at bedtime. 90 Tablet 1 04/07/2024 Active busPIRone HCl 10 MG Oral Tablet (Buspar) Take 1 Tablet by mouth in the morning and 1 Tablet before bedtime. Active oxyCODONE-Acetaminoph en 10-325 MG Oral TabletIndications:Dis c disorder of lumbar region,Chronic pain syndrome,Chronic right-sided low back pain with right-sided sciatica Take 1 Tablet by mouth in the morning and 1 Tablet in the evening. 60 Tablet 05/26/2024 Active Polyethylene Glycol 3350 17 GM/SCOOP Oral [...] days, call your PCP. 238 g 1 06/07/2024 Active documented as of this encounter (statuses as of 06/16/2024) Active Problems Problem Noted Date Diagnosed Date Hyperlipidemia with target LDL less than 70 11/2023 Type 2 diabetes mellitus wit h hemoglobin A1c goal of less than 7.0% 11/07/2022 Obesity, Class I, BMI 30.0-34.9 (see actual BMI) 05/01/2013 Anemia 10/25/2011 HTN, GOAL BELOW 140/90 07/14/2009 Overview: Modified per HTN Taxonomy. 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 06/27/2008 Restless legs syndrome 10/09/2007 MEDICATION USE AGREEMENT 08/25/2007 GENERAL OSTEOARTHROSIS 09/06/2002 Major depressive disorder 06/23/2001 Overview: ICD-10 update of inactive term Kidney disease, chronic, stage II (GFR 60-89 ml/ min) documented as of this encounter (statuses as of 06/16/2024) Resolved Problems Problem Noted Date Diagnosed Date Resolved Date Alzheimer's disease, unspecified (CODE) 02/09/2024 04/07/2024 Type 2 diabetes mellitus wit h diabetic chronic kidney disease 11/13/2022 02/09/2024 Idiopathic cardiomyopathy 09/17/2011 Bipolar disorder 12/30/2008 02/09/2024 Secondary parkinsonism 10/09/200702/08 BENIGN HYPERTENSION 09/06/2002 07/14/20 09 Overview: Modified per HTN Taxonomy. documented as of this encounter (statuses as of 06/16/2024) Immunizations Name Administration Dates Next Due COVID-19 mRNA, LNP-s, No Pre serve, 2-Dose Series ([employer]) 05/01/2021 COVID-19, MRNA-LNP, 23-24, P F, 30 MCG/0.3 mL, 12 YRS AND ABOVE, IM (PFIZER-Comirnaty) 07/18/2023 Pneumococcal Conjugate Vacci ne, 20-valent ([id number]) 04/29/2023 Seasonal Influenza Vac., MDV , IM, 0.5 mL (Fluzone) 08/21/2013,08/21/2012,07/02/2011,2009,06/08/2009,06/27/2008 Seasonal Influenza, Quadriva lent Hd (Fluzone Hd) [...] encounter Miscellaneous Notes * Telephone Encounter - Nuha Hu weight and test bar clerk - 06/16/2024 9:19 AM EDT Patient calling to check on status of medication for restless legs. Caller can be reached at [phone]. Patient is requesting a callback Thank you, Nuha Hu Statistical Machine Mechanic I [facility] 06/16/2024,9:19 AM * Telephone Encounter - Sarai Duran OSA - 06/16/2024 7:45 AM EDT Pt called in again this morning she said her RLS is very bad she has been up for 2 days. Please reach out to pt. * Telephone Encounter - Sarah Hurtado weight and test bar clerk - 06/14/2024 2:41 PM EDT Pt calling regarding Pramipexole Dihydrochloride 0.5 MG Oral Tablet (Mirapex) Medication is not helping her legs at all. Pt can be reached at: [phone]- [place] . documented in this encounter Plan of Treatment Upcoming Encounters Date Type Department Care Team (Late st Contact Info) Description 06/30/2024 2:20 PM EDT Office Visit Podiatry [facility] [place] [address] Josefina Crawford, DPAnu [address] [place] [address] [place] [address] 08/17/2024 2:00 PM EST Office Visit Cardiology, [facility] 132 [facility] [place] [address] Jignesh Zacarias PA-C [address] [facility] [address] 09/13/2024 2:00 PM EST Office Visit Audiology [facility] 132 [facility] [place] [address] Kaitlin Mcintyre Au.D. [address] [place] [address] 10/05/2024 2:00 PM EST Office Visit [address] [phone] Lars Vidal CRNP [address] [place] [address] [place] [address] 03/16/2025 1:00 PM EDT Office Visit [address] [place] [phone] Kristie Franks MD [address] [place] [address] [place] [address] Scheduled Procedures Name Priority Associated Diagnoses Date/Ti [...] Vaccine (3 - season) 2024 07/18/2023, 05/01/2021 Influenza Vaccine (FLU shot) (#1) 2024 07/18/2023, 06/24/2022, 07/16/2019, Additional history exists Diabetic Eye Exam 07/18/2024 07/18/2023, , 01/15/2012 [...] Completed 04/29/2023, 02/18/2022, 03/13/2020, Additional history exists HPV (Gardasil) Vaccine Aged [...] filedocumented as of this encounter Care Teams Line Service Supervisor Relationship Specialty Start Date End Date Kristie Franks MD [address] [place] [address] [place] [address] PCP - General Family Medicine 11/18/22 documented as of this encounter
--- OUTSIDE RECORDS SUMMARY | 2024-12-06 21:00 | External Medical Summary | Summary of Care ---
Author Name Unknown Organization [facility] Address [address] [place] [address] Phone [phone] Care Team Providers Care Care Director Rn Name Role Phone Kristie Franks MD Primary Care Prov ider Reason for Visit * Reason Onset Date Comments Medication Problem 06/16/2024 Status Check 06/14/2024 Encounter Details Date Type Department Care Team (Late st Contact Info) Description 06/14/2024 Telephone Family Medicine [address] [phone] Kristie Franks MD [address] [place] [address] Medication Problem; Status Check Allergies Active [...] mRNA, LNP-s, No Pre serve, 2-Dose Series ([employer]) 05/01/2021 COVID-19, MRNA-LNP, 23-24, P F, 30 MCG/0.3 mL, 12 YRS AND ABOVE, IM (PFIZER-Comirnaty) 07/18/2023 Pneumococcal Conjugate Vacci ne, 20-valent ([id number]) 04/29/2023 Seasonal Influenza Vac., MDV , IM, [...] Telephone Encounter - Alesha Santillan LPN - 06/16/2024 4:30 PM EDT Pt saw Dr. Nuñez for this in March, before that she was taking 1 mg at bedtime, and she felt it was more effective. I spoke with Dr. Nuñez and Dr. Dangelo, pt needs appt and needs to bring her medications in to be reconciled. Pt notified and verbalized understanding. She states she will bring all of her meds. * Telephone Encounter - Joy Jansen PHARM Tech - 06/16/2024 3:53 PM EDT Pt requesting HIGH PRIORITY due to pt has been calling for days stating the Mirapex for restless legs is no longer working and is asking for something else. Please contact pt t [phone] Thank you, Joy Jansen, [facility] Feed Mill Supervisor II [facility]) 06/16/2024,3:55 PM * Telephone Encounter - Gerardo Garcia PHARM Tech - 06/16/2024 1:48 PM EDT Patient calling to check on status of medication request. Thank you, Gerardo Garcia Utilization Engineer I [facility]) 06/16/2024,1:48 PM * Telephone Encounter - Nuha Hu PHARM Tech - 06/16/2024 9:19 AM EDT Patient calling to check on status of medication for restless legs. Caller can be reached at [phone]. Patient is requesting a callback Thank you, Nuha Hu Utilization Engineer I [facility]) 06/16/2024,9:19 AM * Telephone Encounter - Sarai Duran OSA - 06/16/2024 7:45 AM EDT Pt called in again this morning she said her RLS is very bad she has been up for 2 days. Please reach out to pt. * Telephone Encounter - Sarah Hurtado PHARM Tech - 06/14/2024 2:41 PM EDT Pt calling regarding Pramipexole Dihydrochloride 0.5 MG Oral Tablet (Mirapex) Medication is not helping her legs at all. Pt can be reached at: [phone] [address] [facility] [address] documented in this encounter Plan of Treatment Upcoming Encounters Date Type Department Care Team (Late st Contact Info) Description 06/23/2024 3:00 PM EDT Office Visit Family [address] [address] Kristie Franks MD [address] [place] [address] [place] [address] 06/30/2024 2:20 PM EDT Office Visit Podiatry [facility] [address] [place] [address] Josefina Crawford, DPM [address] [facility] [place] [address] 08/17/2024 2:00 PM EST Office Visit Cardiology, [facility] 132 [facility] [address] Jignesh Zacarias PA-C [address] [place] [address] 09/13/2024 2:00 PM EST Office Visit Audiology [facility] 132 [facility] [address] Kaitlin Mcintyre Au.D. [address] [facility] [place] [address] 10/05/2024 2:00 PM EST Office Visit Family [address] [phone] Lars Vidal CRNP [address] [place] [address] [place] [address] 03/16/2025 1:00 PM EDT Office Visit [address] [phone] Kristie Franks MD [address] [place] [address] [place] [address] Scheduled Procedures Name Priority Associated Diagnoses Date/Ti [...] filedocumented as of this encounter Care Teams Care Director Rn Relationship Specialty Start Date End Date Kristie Franks MD [address] [place] [address] [place] Jaram[place] [id number] PCP - General Family Medicine 11/18/22 documented as of this encounter
--- OUTSIDE RECORDS SUMMARY | 2024-12-06 21:00 | External Medical Summary | Summary of Care ---
Author Name Unknown Organization [facility] Address [address] [place] [address] Phone [phone] Care Team Providers Care Java J2Ee Software Engineer Name Role Phone Kristie Franks MD Primary Care Prov ider Reason for Visit * Reason Onset Date Comments Advice 07/09/2024 Encounter Details Date Type Department Care Team (Late st Contact Info) Description 07/09/2024 Telephone Family Medicine [address] [phone] Kristie Franks MD [address] [place] [address] [place] [address] Advice Allergies Active Allergy Reactions Criticality Noted Date Comments Latex 04/04/2009 Penicillins Low 03/24/2023 "It makes my bottom sore" documented as of this encounter (statuses as of 07/12/2024) Medications Medication Sig Dispensed Refills Start Date [...] as of this encounter (statuses as of 07/12/2024) Active Problems Problem Noted Date Diagnosed Date [...] as of this encounter (statuses as of 07/12/2024) Resolved Problems Problem Noted Date Diagnosed Date Resolved Date Alzheimer's disease, unspecified (CODE) 02/09/2024 04/07/2024 Type 2 diabetes mellitus wit h diabetic chronic kidney disease 11/13/2022 02/09/2024 Idiopathic cardiomyopathy 09/17/2011 Secondary parkinsonism 10/09/200702/08 BENIGN HYPERTENSION 09/06/2002 07/14/20 09 Overview: Modified per HTN Taxonomy. documented as of this encounter (statuses as of 07/12/2024) Immunizations Name Administration Dates Next Due COVID-19 mRNA, LNP-s, No Pre serve, 2-Dose Series ([employer]) 05/01/2021 COVID-19, MRNA-LNP, PF, 30 M CG/0.3 mL, 12 YRS AND ABOVE, IM (PFIZER-Comirnaty) 07/18/2023 Pneumococcal Conjugate Vacci ne, 20-valent ([id number]) 04/29/2023 Seasonal Influenza Vac., MDV , IM, [...] 1:12 PM EST Pramipexole was sent to [facility] 04/07/24 for 90 days with a refill. Not due until Sep I called the patient and she said she lost the bottle. I advised her to call [employer] they shouldhave it on file * Telephone Encounter - Beryl Winston OSA - 07/09/2024 12:31 PM EDT Pt is requesting refill for her restless leg syndrome medication. Pt stated she hasn't slept in 3 days. Please advise. documented in this encounter Plan of Treatment Upcoming Encounters Date Type Department Care Team (Late st Contact Info) Description 08/17/2024 2:00 PM EST Office Visit Cardiology, [facility] [address] [place] [address] Jignesh Zacarias PA-C [address] [address] 09/07/2024 2:30 PM EST Office Visit Interventional Pain Center, [facility] [address] [facility] [place] [address] Kaity Damian PA-C [address] [facility] [place] [address] 09/13/2024 2:00 PM EST Office Visit [facility]iology [facility] [place] [address] Kaitlin Mcintyre Au.D. [address] [facility] [place] [address] 10/05/2024 2:00 PM EST Office Visit [address] [phone] Lars Vidal CRNP [address] [place] [address] [place] [address] 03/16/2025 1:00 PM EDT Office Visit [address] [phone] Kristie Franks MD [address] [place] [address] [place] [address] Scheduled Procedures Name Priority Associated Diagnoses Date/Ti [...] filedocumented as of this encounter Care Teams Java J2Ee Software Engineer Relationship Specialty Start Date End Date Kristie Franks MD [address] [place] [address] [place] Jaram[place] [phone] PCP - General Family Medicine 11/18/22 documented as of this encounter
--- OUTSIDE RECORDS SUMMARY | 2024-12-06 21:00 | External Medical Summary | Summary of Care ---
Author Name Unknown Organization [facility] Address [address] [place] [address] Phone [phone] Care Team Providers Care Rn Relief Charge Name Role Phone Kristie Franks MD Primary Care Prov ider Reason for Visit * Reason Onset Date Comments Medication Problem 06/16/2024 Status Check 06/14/2024 Encounter Details Date Type Department Care Team (Late st Contact Info) Description 06/14/2024 Telephone Family Medicine [address] [phone] Kristie Franks MD [address] [place] [address] Medication Problem; Status Check Allergies Active [...] kidney disease, unspecified CKD stage, unspecified whether snf insulin use (HCC) Test once Daily Dx [...] mRNA, LNP-s, No Pre serve, 2-Dose Series ([employer]) 05/01/2021 COVID-19, MRNA-LNP, 23-24, P F, 30 MCG/0.3 mL, 12 YRS AND ABOVE, IM (PFIZER-Comirnaty) 07/18/2023 Pneumococcal Conjugate Vacci ne, 20-valent ([id number]) 04/29/2023 Seasonal Influenza Vac., MDV , IM, [...] encounter Miscellaneous Notes * Telephone Encounter - Gerardo Garcia PHARM Tech - 06/16/2024 1:48 PM EDT Patient calling to check on status of medication request. Thank you, Gerardo Garcia Cattle Examiner I [facility] 06/16/2024,1:48 PM * Telephone Encounter - Nuha Hu PHARM Tech - 06/16/2024 9:19 AM EDT Patient calling to check on status of medication for restless legs. Caller can be reached at [phone]. Patient is requesting a callback Thank you, Nuha Hu Cattle Examiner I [facility]) 06/16/2024,9:19 [...] at all. Pt can be reached at: [phone] . documented in this encounter Plan of Treatment Upcoming Encounters Date Type Department Care Team (Late st Contact Info) Description 06/30/2024 2:20 PM EDT Office Visit Podiatry [facility] 132 [facility] [place] [address] Josefina Crawford, DPAnu [address] [place] [address] [place] [address] 08/17/2024 2:00 PM EST Office Visit Cardiology, [facility] 132 [facility] [place] [address] Jignesh Zacarias PAStewart 132 [facility] [place] [address] 09/13/2024 2:00 PM EST Office Visit Audiology [facility] 132 [facility] [place] [address] Kaitlin Mcintyre Au.D. [address] [place] [address] 10/05/2024 2:00 PM EST Office Visit Family Medicine [address] [place] [phone] Lars Vidal CRNP [address] [place] [address] [place] [address] 03/16/2025 1:00 PM EDT Office Visit Family Medicine [address] [place] [phone] Kristie Franks MD [address] [place] [address] [place] [address] Scheduled Procedures Name Priority Associated Diagnoses Date/Ti [...] COVID-19 Vaccine ( season) 2024 07/18/2023, 05/01/2021 Influenza Vaccine (FLU [...] filedocumented as of this encounter Care Teams Rn Relief Charge Relationship Specialty Start Date End Date Kristie Franks MD [address] [place] [address] [place] [address] PCP - General Family Medicine 11/18/22 documented as of this encounter
--- OUTSIDE RECORDS SUMMARY | 2024-12-06 21:00 | External Medical Summary | Summary of Care ---
Author Name Unknown Organization [facility] Address [address] [place] [address] Phone [phone] Care Team Providers Care Corporate Buyer Name Role Phone Romeo Franks MD Primary Care Prov ider Reason for Visit * Reason Onset Date Comments No Show 06/26/2024 [facility] No Show Auto mation Encounter Details Date Type Department Care Team (Late st Contact Info) Description 06/26/2024 Telephone Family Medicine [address] [phone] Romeo Franks MD [address] [place] [id number] No Show ([place] No Show Automation) Allergies Active Allergy Reactions Criticality Noted Date Comments Latex 04/04/2009 Penicillins Low 03/24/2023 "It makes my bottom sore" documented as of this encounter (statuses as of 06/26/2024) Medications Medication Sig Dispensed Refills Start Date [...] morning and 1 Tablet before bedtime. Active Polyethylene Glycol 3350 17 GM/SCOOP Oral [...] your PCP. 238 g 1 06/07/2024 Active oxyCODONE-Acetaminoph en 10-325 MG Oral TabletIndications:Dis c disorder of lumbar region,Chronic pain syndrome,Chronic right-sided low back pain with right-sided sciatica Take 1 Tablet by mouth in the morning and 1 Tablet in the evening. 20 Tablet 06/25/2024 Active documented as of this encounter (statuses as of 06/26/2024) Active Problems Problem Noted Date Diagnosed Date [...] as of this encounter (statuses as of 06/26/2024) Resolved Problems Problem Noted Date Diagnosed Date Resolved Date Alzheimer's disease, unspecified (CODE) 02/09/2024 04/07/2024 Type 2 diabetes mellitus wit h diabetic chronic kidney disease 11/13/2022 02/09/2024 Idiopathic cardiomyopathy 09/17/2011 Bipolar disorder 12/30/2008 02/09/2024 Secondary parkinsonism 10/09/200702/08 BENIGN HYPERTENSION 09/06/2002 07/14/20 09 Overview: Modified per HTN Taxonomy. documented as of this encounter (statuses as of 06/26/2024) Immunizations Name Administration Dates Next Due COVID-19 mRNA, LNP-s, No Pre serve, 2-Dose Series (Pfizer) 05/01/2021 COVID-19, MRNA-LNP, 23-24, P F, 30 MCG/0.3 mL, 12 YRS AND ABOVE, IM (PFIZER-Comirnaty) 07/18/2023 Pneumococcal Conjugate Vacci ne, 20-valent ([id number]) 04/29/2023 Seasonal Influenza Vac., MDV , IM, [...] Telephone Encounter - Kerwin, No Show - 06/26/2024 4:43 AM EDT Dear Chante Harvey, Looks like you missed an appointment with ROMEO HARVEY on 06/23/2024 at 03:00 PM. If you haven't already rescheduled, you have a couple of options: Reschedule in [email or web address] Call us at [phone] Can't make a future appointment? Cancel and let someone else have your spot! It's easy to do via [employer] or by calling us. Thanks for trusting [facility] with your care. We hope to see you back in our office soon. Sincerely, ROMEO HARVEY documented in this encounter Plan of Treatment Upcoming Encounters Date Type Department Care Team (Late st Contact Info) Description 06/30/2024 2:20 PM EDT Office Visit Podiatry [facility] [address] [facility] [place] [address] Josfeina Crawford DPM [address] [place] [address] [place] [address] 07/05/2024 10:40 AM EDT Office Visit [address] [phone] Romeo Franks MD [address] [place] [address] [place] [address] 08/17/2024 2:00 PM EST Office Visit Cardiology, [facility] [address] [place] [address] Jignesh Zacarias PA-C [address] [place] [address] 09/13/2024 2:00 PM EST Office Visit Audiology [facility] [address] [facility] [place] [address] Kaitlin Mcintyre Au.D. [address] [place] [address] 10/05/2024 2:00 PM EST Office Visit [address] [phone] Lars Vidal CRNP [address] [place] [address] [place] [address] 03/16/2025 1:00 PM EDT Office Visit [address] [phone] Romeo Franks MD [address] [place] [address] [place] [phone] Scheduled Procedures Name Priority Associated Diagnoses Date/Ti [...] filedocumented as of this encounter Care Teams Corporate Buyer Relationship Specialty Start Date End Date Romeo Franks MD [address] [place] [address] [place] [phone] PCP - General Family Medicine 11/18/22 documented as of this encounter
--- OUTSIDE RECORDS SUMMARY | 2024-12-06 21:00 | External Medical Summary | Summary of Care ---
Author Name Unknown Organization [facility] Address [address] [place] [address] Phone [phone] Care Team Providers Care Professor Of Political Science Name Role Phone Romeo Gerber MD Primary Care Prov ider Reason for Referral * Medication Prior Authorization - Closed Specialty Diagnoses / Procedures Referred By Contac t Referred To Contact Diagnoses Disc disorder of lumbar region Chronic pain syndrome Chronic right-sided low back pain with right-sided sciatica Romeo Gerber MD [address] [place] [address] [place] [id number] Referral ID Status Reason Start Date Expiration Date Visits Re quested Visits Authorized [id number] Closed [phone] Reason for Visit * Reason Onset Date Comments Medication Refill 06/24/2024 Encounter Details Date Type Department Care Team (Late st Contact Info) Description 06/24/2024 Refill Family Medicine [address] [phone] Romeo Gerber MD [address] [place] [address] [place] [phone] Disc disorder of lumbar region; Chronic pain syndrome; Chronic right-sided low back pain with right-sided sciatica Allergies Active Allergy Reactions Criticality Noted Date Comments Latex 04/04/2009 Penicillins Low 03/24/2023 "It makes my bottom sore" documented as of this encounter (statuses as of 06/25/2024) Medications Medication Sig Dispensed Refills Start Date [...] in the evening. 08/23/2022 Active OneTouch UltraSoft LancetsIndications:T ype 2 diabetes mellitus with diabetic chronic kidney disease, unspecified CKD stage, unspecified whether fpc insulin use (HCC) Test once Daily Dx E11.9 100 Each 3 01/20/2023 Active Carvedilol 12.5 MG Oral Tablet (Coreg)Indications:I diopathic cardiomyopathy (HCC) Take 1 Tablet by mouth in the morning and 1 Tablet before bedtime. 180 Tablet 3 07/18/2023 Active hydrOXYzine HCl 25 MG Oral TabletIndications:In somnia, unspecified type Take 1 Tablet by mouth every night at bedtime. 30 Tablet 3 07/23/2023 Active OLANZapine 10 MG Oral Tablet (zyPREXA) TAKE ONE TABLET BY MOUTH DAILY 45 Tablet 07/28/2023 Active Rosuvastatin Calcium 20 MG Oral Tablet (Crestor)Indications :Hyperlipidemia with target LDL less than 70 Take 1 Tablet by mouth in the morning. 90 Tablet 1 12/25/2023 Active Clopidogrel Bisulfate 75 MG Oral Tablet (pLAVix)Indications: Idiopathic cardiomyopathy (HCC) Take 1 Tablet by mouth in the morning. 90 Tablet 1 02/09/2024 Active Lisinopril 10 MG Oral Tablet (Prinivil)Indication s:Idiopathic cardiomyopathy (HCC) Take 1 Tablet by mouth in the morning. 90 Tablet 1 02/09/2024 Active traZODone HCl 100 MG Oral Tablet (Desyrel) Take 2 Tablets by mouth at bedtime. 2024 Active Cetirizine HCl 10 MG Oral Tablet (ZyrTEC)Indications: Seasonal allergic rhinitis due to pollen Take 1 [...] Polyethylene Glycol 3350 17 GM/SCOOP Oral Powder (MiraLax)Indications :Drug induced constipation Take 17 g by mouth [...] your PCP. 238 g 1 06/07/2024 Active oxyCODONE-Acetaminop hen 10-325 MG Oral TabletIndications:Di sc disorder of lumbar region,Chronic pain syndrome,Chronic right-sided low back pain with right-sided sciatica Take 1 Tablet by mouth in the morning and 1 Tablet in the evening. 20 Tablet 06/25/2024 Active oxyCODONE-Acetaminop hen 10-325 MG Oral TabletIndications:Di sc disorder of lumbar region,Chronic pain syndrome,Chronic right-sided low back pain with right-sided sciatica Take 1 Tablet by mouth in the morning and 1 Tablet in the evening. 60 Tablet 05/26/2024 4 Discontinu ed(Refill) documented as of this encounter (statuses as of 06/25/2024) Active Problems Problem Noted Date Diagnosed Date [...] as of this encounter (statuses as of 06/25/2024) Resolved Problems Problem Noted Date Diagnosed Date Resolved Date Alzheimer's disease, unspecified (CODE) 02/09/2024 04/07/2024 Type 2 diabetes mellitus wit h diabetic chronic kidney disease 11/13/2022 02/09/2024 Idiopathic cardiomyopathy 09/17/2011 Bipolar disorder 12/30/2008 02/09/2024 Secondary parkinsonism 10/09/200702/08 BENIGN HYPERTENSION 09/06/2002 07/14/20 09 Overview: Modified per HTN Taxonomy. documented as of this encounter (statuses as of 06/25/2024) Immunizations Name Administration Dates Next Due COVID-19 mRNA, LNP-s, No Pre serve, 2-Dose Series (Pfizer) 05/01/2021 COVID-19, MRNA-LNP, 23-24, P F, 30 MCG/0.3 mL, 12 YRS AND ABOVE, IM (PFIZER-Comirnaty) 07/18/2023 Pneumococcal Conjugate Vacci ne, 20-valent ([id number]) 04/29/2023 Seasonal Influenza Vac., MDV , IM, [...] encounter Miscellaneous Notes * Telephone Encounter - Yasmeen Butler CMA - 06/25/2024 3:15 PM EDT Patient is scheduled Friday with [facility]. * Telephone Encounter - Romeo Gerber MD - 06/25/2024 1:18 PM EDT Signed Prescriptions: Disp Refills oxyCODONE-Acetaminophen 10-325 MG Oral Tab*20 Tab*0 Sig: Take 1 Tablet by mouth in the morning and 1 Tablet in the evening. Authorizing Provider: ROMEO GERBER * Telephone Encounter - Romeo Gerber MD - 06/25/2024 1:17 PM EDT She no showed her appt with me this week. Needs to come to next appointment with primary care giverand ALL of her medications. I have refilled only 10 days worth to get her until her next appt. * Telephone Encounter - Juan Sharma [facility] - 06/25/2024 1:12 PM EDT Pending Prescriptions: Disp Refills oxyCODONE-Acetaminophen 10-325 MG Oral Tab*60 Tab*0 Sig: Take 1 Tablet by mouth in the morning and 1 Tablet in the evening. * Telephone Encounter - Juan Sharma [facility] - 06/25/2024 1:10 PM EDT I have reviewed the patient’s controlled substance dispensing history in the Prescription Drug Monitoring Program in compliance with the [facility] regulations before prescribing a controlled substance. PDMP checked on 06/25/2024. Pending Prescriptions: Disp Refills oxyCODONE-Acetaminophen 10-325 MG Oral Ta*60 Tab*0 Sig: Take 1 Tablet by mouth in the morning and 1 Tablet in the evening. Last Visit: 06/03/2024 (in office), Visit date not found (telemedicine) Next Visit: 07/05/2024 Date medication was last filled: 05/28/24 Date medication is due for refill: 06/25/24 Pharmacy: [address] Is this request for a controlled substance? Yes and Urine Drug Screen Not completed Please approve if appropriate. Thanks, Juan Sharma PharmD Clinical Pharmacist [facility] [phone] 06/25/2024, 1:10 PM * Telephone Encounter - Elena Whitley PHARM Tech - 06/24/2024 1:00 PM EDT Did you pend patient's preferred pharmacy and medication before forwarding?yes Pharmacy: [address] Pending Prescriptions: Disp Refills oxyCODONE-Acetaminophen 10-325 MG Oral Ta*60 Tab*0 Sig: Take 1 Tablet by mouth in the morning and 1 Tablet in the evening. Last Visit: 06/03/2024 (in office), Visit date not found (telemedicine) Next Visit: 06/30/2024 If no future appointments scheduled, and last appointment is greater than a year ago, please schedule patient for a follow-up appointment Last date the medication was ordered: 05/26/24 Is this request for a controlled substance?Yes, What was the last refill date 05/26/24 w/ quantity 60 and dosage 1 tab bid and Urine Drug Screen Not completed Urine Drug Screen: Results for orders [...] 06/30/2024 2:20 PM EDT Office Visit Podiatry [address] [place] [address] Josefina Crawford DPM [address] [place] [address] [place] [phone] 07/05/2024 10:40 AM EDT Office Visit [address] [phone] Romeo Gerber MD [address] [place] [address] [place] [phone] 08/17/2024 2:00 PM EST Office Visit Cardiology, [facility] [address] [facility] [place] [address] Jignesh Zacarias PA-C [address] [place] [address] 09/13/2024 2:00 PM EST Office Visit Audiology [facility] [address] [facility] [place] [address] Kaitlin Mcintyre Au.D. [address] [place] [address] 10/05/2024 2:00 PM EST Office Visit [address] [phone] Lars Vidal CRNP [address] [place] [address] [place] [phone] 03/16/2025 1:00 PM EDT Office Visit [address] [phone] Romeo Gerber MD [address] [place] [address] [place] [phone] Scheduled Procedures Name Priority Associated Diagnoses Date/Ti [...] right-sided low back pain with right-sided sciatica Injury, foot, left, sequela- Primary Closed fracture of base of fifth metatarsal bone of left foot Pain in left foot Pain in limb Intractable left heel pain History of foot surgery Personal history of surgery to other organs documented in this encounter Care Teams Professor Of Political Science Relationship Specialty Start Date End Date Romeo Gerber MD [address] [place] [address] [place] [phone] PCP - General Family Medicine 11/18/22 documented as of this encounter
--- OUTSIDE RECORDS SUMMARY | 2024-12-06 21:00 | External Medical Summary | Summary of Care ---
Author Name Unknown Organization [facility] Address [address] [place] [address] Phone [phone] Care Team Providers Care Furniture Designer Name Role Phone Kristie Franks MD Primary Care Prov ider Reason for Visit * Reason Onset Date Comments No Show 07/03/2024 [facility] No Show Auto mation Encounter Details Date Type Department Care Team (Late st Contact Info) Description 07/03/2024 Telephone Podiatry, [facility] [address] [place] [address] Estela Archibald, JOSE [address] [place] [address] No Show ([place] No Show Automation) Allergies Active Allergy Reactions Criticality Noted Date Comments Latex 04/04/2009 Penicillins Low 03/24/2023 "It makes my bottom sore" documented as of this encounter (statuses as of 07/03/2024) Medications Medication Sig Dispensed Refills Start Date [...] as of this encounter (statuses as of 07/03/2024) Active Problems Problem Noted Date Diagnosed Date [...] as of this encounter (statuses as of 07/03/2024) Resolved Problems Problem Noted Date Diagnosed Date Resolved Date Alzheimer's disease, unspecified (CODE) 02/09/2024 04/07/2024 Type 2 diabetes mellitus wit h diabetic chronic kidney disease 11/13/2022 02/09/2024 Idiopathic cardiomyopathy 09/17/2011 Bipolar disorder 12/30/2008 02/09/2024 Secondary parkinsonism 10/09/200702/08 BENIGN HYPERTENSION 09/06/2002 07/14/20 09 Overview: Modified per HTN Taxonomy. documented as of this encounter (statuses as of 07/03/2024) Immunizations Name Administration Dates Next Due COVID-19 mRNA, LNP-s, No Pre serve, 2-Dose Series (Pfizer) 05/01/2021 COVID-19, MRNA-LNP, 23-24, P F, 30 MCG/0.3 mL, 12 YRS AND ABOVE, IM (PFIZER-Comirnaty) 07/18/2023 Pneumococcal Conjugate Vacci ne, 20-valent ([id number]) 04/29/2023 Seasonal Influenza Vac., MDV , IM, [...] Telephone Encounter - Kerwin, No Show - 07/03/2024 9:56 AM EDT Dear Chante Harvey, Looks like you missed an appointment with ESTELA ARCHIBALD on 06/30/2024 at 02:20 PM. If you haven't already rescheduled, you have a couple of options: Reschedule in [email or web address] Call us at [phone] Can't make a future appointment? Cancel and let someone else have your spot! It's easy to do via [employer] or by calling us. Thanks for trusting [facility] with your care. We hope to see you back in our office soon. Sincerely, ESTELA Fatimah CRISTELA documented in this encounter Plan of Treatment Upcoming Encounters Date Type Department Care Team (Late st Contact Info) Description 07/05/2024 10:40 AM EDT Office Visit Family Medicine [address] [place] [phone] Kristie Franks MD [address] [place] [address] [place] [phone] 08/17/2024 2:00 PM EST Office Visit Cardiology, [facility] [address] [facility] [place] [address] Jignesh Zacarias PA-C [address] [place] [address] 09/13/2024 2:00 PM EST Office Visit Audiology [facility] [address] [place] [address] Kaitlin Mcintyre Au.D. [address] [place] [address] 10/05/2024 2:00 PM EST Office Visit [address] [phone] Lars Vidal CRNP [address] [place] [address] [place] [address] 03/16/2025 1:00 PM EDT Office Visit [address] [phone] Kristie Franks MD [address] [place] [address] [place] [phone] Scheduled Procedures Name Priority Associated Diagnoses Date/Ti [...] filedocumented as of this encounter Care Teams Furniture Designer Relationship Specialty Start Date End Date Kristie Franks MD [address] [place] [address] [place] [phone] PCP - General Family Medicine 11/18/22 documented as of this encounter
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
--- OUTSIDE RECORDS SUMMARY | 2024-12-06 21:01 | External Medical Summary | Summary of Care ---
Author Name Unknown Organization [facility] Address [address] [place] [address] Phone [phone] Care Team Providers Care Director Supply Name Role Phone Kristie Franks MD Primary Care Prov ider Reason for Visit * Reason Onset Date Comments Medication Problem 06/16/2024 Encounter Details Date Type Department Care Team (Late st Contact Info) Description 06/14/2024 Telephone Family Medicine [address] [phone] Kristie Franks MD [address] [place] [id number] Medication Problem Allergies Active Allergy Reactions Criticality Noted Date [...] Secondary parkinsonism 10/09/200702/08 BENIGN HYPERTENSION 09/06/2002 07/14/20 Overview: Modified per HTN Taxonomy. documented as of this encounter (statuses as of 06/16/2024) Immunizations Name Administration Dates Next Due COVID-19 mRNA, LNP-s, No Pre serve, 2-Dose Series (Pfizer) 05/01/2021 COVID-19, MRNA-LNP, 23-24, P F, 30 MCG/0.3 mL, 12 YRS AND ABOVE, IM (PFIZER-Comirnaty) 07/18/2023 Pneumococcal Conjugate Vacci ne, 20-valent ([id number]) 04/29/2023 Seasonal Influenza Vac., MDV , IM, [...] encounter Miscellaneous Notes * Telephone Encounter - Sarai Duran OSA [...] at all. Pt can be reached at: [phone] [facility] [address] documented in this encounter Plan of Treatment Upcoming Encounters Date Type Department Care Team (Late st Contact Info) Description 06/30/2024 2:20 PM EDT Office Visit Podiatry [facility] [address] [facility] [place] [address] Josefina Crawford, JOSE [address] [place] [address] [place] [address] 08/17/2024 2:00 PM EST Office Visit Cardiology, [facility] [address] [place] [address] Jignesh Zacarias PA-C [address] [place] [address] 09/13/2024 2:00 PM EST Office Visit Audiology [facility] [address] [place] [address] Kaitlin Mcintyre Au.D. [address] [place] [address] 10/05/2024 2:00 PM EST Office Visit [address] [phone] Lars Vidal CRNP [address] [place] [address] [place] [address] 03/16/2025 1:00 PM EDT Office Visit [address] [phone] Kristie Franks MD [address] [place] [address] [place] [address] Scheduled Procedures Name Priority Associated Diagnoses Date/Ti [...] filedocumented as of this encounter Care Teams Director Supply Relationship Specialty Start Date End Date Kristie Franks MD [address] [place] [address] [place] [phone] PCP - General Family Medicine 11/18/22 documented as of this encounter
--- OUTSIDE RECORDS SUMMARY | 2024-12-06 21:01 | External Medical Summary | Summary of Care ---
Author Name Unknown Organization [facility] Address [address] [place] [address] Phone [phone] Care Team Providers Care Yard Driver Name Role Phone Kristie Franks MD Primary Care Prov ider Reason for Visit * Reason Onset Date Comments Medication Problem 06/14/2024 Encounter Details Date Type Department Care Team (Late st Contact Info) Description 06/14/2024 Telephone Family Medicine [address] [id number] Kristie Franks MD [address] [place] [id number] Medication Problem Allergies Active Allergy Reactions Criticality Noted Date Comments Latex 04/04/2009 Penicillins Low 03/24/2023 "It makes my bottom sore" documented as of this encounter (statuses as of 06/14/2024) Medications Medication Sig Dispensed Refills Start Date [...] kidney disease, unspecified CKD stage, unspecified whether correction insulin use (HCC) Test once Daily Dx [...] as of this encounter (statuses as of 06/14/2024) Active Problems Problem Noted Date Diagnosed Date [...] as of this encounter (statuses as of 06/14/2024) Resolved Problems Problem Noted Date Diagnosed Date Resolved Date Alzheimer's disease, unspecified (CODE) 02/09/2024 04/07/2024 Type 2 diabetes mellitus wit h diabetic chronic kidney disease 11/13/2022 02/09/2024 Idiopathic cardiomyopathy 09/17/2011 Bipolar disorder 12/30/2008 02/09/2024 Secondary parkinsonism 10/09/200702/08 BENIGN HYPERTENSION 09/06/2002 07/14/20 09 Overview: Modified per HTN Taxonomy. documented as of this encounter (statuses as of 06/14/2024) Immunizations Name Administration Dates Next Due COVID-19 mRNA, LNP-s, No Pre serve, 2-Dose Series (Pfizer) 05/01/2021 COVID-19, MRNA-LNP, 23-24, P F, 30 MCG/0.3 mL, 12 YRS AND ABOVE, IM (PFIZER-Comirnaty) 07/18/2023 Pneumococcal Conjugate Vacci ne, 20-valent ([id number]) 04/29/2023 Seasonal Influenza Vac., MDV , IM, [...] encounter Miscellaneous Notes * Telephone Encounter - Sarah Hurtado PHARM Tech - 06/14/2024 2:41 PM EDT Pt calling regarding Pramipexole Dihydrochloride 0.5 MG Oral Tablet (Mirapex) Medication is not helping her legs at all. Pt can be reached at: [phone] [facility] [address] documented in this encounter Plan of Treatment Upcoming Encounters Date Type Department Care Team (Late st Contact Info) Description 06/30/2024 2:20 PM EDT Office Visit Podiatry [facility] [address] [facility] [place] [address] Josefina Crawford, DPAnu [address] [facility] [place] [address] 08/17/2024 2:00 PM EST Office Visit Cardiology, [facility] [address] [place] [id number] Jignesh Zacarias, PAKarolC [address] [facility] [place] [id number] 09/13/2024 2:00 PM EST Office Visit Audiology [facility] [address] [place] [address] Kaitlin Mcintyre Au.D. [address] [place] [id number] 10/05/2024 2:00 PM EST Office Visit [address] [phone] Lars Vidal CRNP [address] [place] [address] [place] [id number] 03/16/2025 1:00 PM EDT Office Visit [address] [place] [phone] Kristie Franks MD [address] [place] [address] [place] [id number] Scheduled Procedures Name Priority Associated Diagnoses Date/Ti [...] filedocumented as of this encounter Care Teams Yard Driver Relationship Specialty Start Date End Date Kristie Franks MD [address] [place] [address] [place] [phone] PCP - General Family Medicine 11/18/22 documented as of this encounter
[2024-12-06] MEDS: methylPREDNISolone 4 MG TAB PO ONE (23:42)
[2024-12-07] MEDS: fentaNYL 50 MCG/HR TDSY TD STA (00:24)
[2024-12-07] MEDS: methylPREDNISolone 4 MG TAB PO SCH ×2 (06:01→19:35)
--- NOTE | 2024-12-07 08:55 | Pain Management Consultation ---
Date of Consultation December 07, 2024 Assessment & Plan (1) Lumbar radiculopathy, chronic: * Based on MRI as well as patient's physical presentation with radiculopathy, she may benefit from L5-S1 interlaminar epidural steroid injection. At this time, patient is hesitant to proceed with any injections. She is established with the outpatient pain clinic at [facility] and was previous placed on fentanyl 50 mcg transdermal patch. May consider Butrans transdermal patch secondary to patient's age and cognitive status. qTc acceptable. Would obtain ekg in 30 days and then with dose changes * Agree with PT/OT evals * Recommend outpatient follow up in the pain clinic for L5-S1 IL RENE. * Discussed with Hospitalist. Patient is already established with [facility] and she may be able to get an injection sooner by contacting them on discharge Plan Case discussed with Dr. Yuen History of Present Illness Reason for Consultation: Acute on chronic pain Attending Physician: Abdiel Jolly MD History of Present Illness Attending: Dr. Yuen Mrs. Harvey is a 74-year-old female who presents with acute on chronic pain. She was a poor historian and is unable to tell me when pain worsened. Best pain is rated 3/10. Currently describes pain as 8/10 but is able to sit up and move about the bed without significant difficulty. She does have occasional wincing when moving about but it did not impact her repositioning. She reports that sitting upright, standing, position changes cause worsening pain. She reports alleviation of pain with laying flat. Pain is described as sharp and she reports that it radiates down bilateral legs in an L5-S1 dist ribution pattern. She reports that she does have some sense of weakness in bilateral legs. She is unable to tell me if she had any falls at home or imbalance issues. Patient reports that she has not tried physical therapy, heat, ice. She is unsure of what NSAID she had had. She was started on a fentanyl 50 mcg transdermal patch as an outpatient and reports limited to no relief. The patient was previously seen by [facility] 09/07/2024. Lumbar spine MRI was ordered. No other intervention or recommendations at this time from them. The patient is unable to elicit previous interventions. Patient denies history of spine surgery. Lumbar spine MRI 09/30/2024 Denies any bowel incontinence but admits to bladder incontinence. She denies fever, chills, night sweats, saddle anesthesia. She does admit to perceived weakness in the lower extremities. No history of malignancy, unusual bleeding or bruising. She has no other constitutional complaints. Allergies Allergy/AdvReac Type Severity Reaction Status Date / Time latex Allergy Unknown localized Verified 09/13/19 09:44 rash Penicillins Allergy Unknown "bottom Verified 09/13/19 09:44 gets sore" Home Medications Medication Instructions Recorded Confirmed Type escitalopram oxalate 20 mg tablet 20 mg PO QAM 04/23/19 12/06/24 History pramipexole 0.5 mg tablet 0.5 mg PO HS 09/13/19 12/06/24 History buspirone 10 mg tablet 10 mg PO 2XD 12/06/24 12/06/24 History clopidogrel 75 mg tablet 75 mg PO DAILY 12/06/24 12/06/24 History lisinopril 10 mg tablet 10 mg PO DAILY 12/06/24 12/06/24 History olanzapine 10 mg tablet 10 mg PO HS 12/06/24 12/06/24 History rosuvastatin 20 mg tablet 20 mg PO DAILY 12/06/24 12/06/24 History trazodone 150 mg tablet 300 mg PO HS 12/06/24 12/06/24 History Pain History Previous Imaging and Results Imaging: Lumbar spine MRI 09/30/2024 with multilevel degenerative changes with canal stenosis at L5-S1 Patient History Medical History (Updated 12/07/24 @ 08:52 by Paolo Clark PA-C) Chest pain, atypical With exertion or at rest History of encephalopathy Treated at [facility] and 05/2019 (see discharge summaries for details). Per neurology evaluation: "suspect her transient encephalopathy is likely multifactorial secondary to untreated JULIO C and polypharmacy (combination of Klonopin, Gabapentin, and clonidine is high risk for delirium), possible untreated obstructive sleep apnea also contributory History of colon polyps History of respiratory failure Syncope/hypoxia/AMS requiring intubation-- treated 04/2019 at [facility] with extensive workup, no definitive cause, possibly polypharmacy with untreated JULIO C. Osteoarthritis Chronic back pain GI bleed with ulcers Peptic ulcer disease hx Cancer BLACK BELT-related --> JAS with BSO Anxiety COPD (chronic obstructive pulmonary disease) Using Combivent and Flovent, no albuterol Heart disease Surgical History History of lumbar puncture 04/2019 [facility] History of dilatation and curettage History of repair of rotator cuff right History of colonoscopy History of esophagogastroduodenoscopy (EGD) S/P gastric bypass H/O: hysterectomy JAS with BSO S/P appendectomy Status post bilateral knee replacements Hx of hernia repair bilateral inguinal hernia repair Family History (Updated 09/13/19 @ 10:10 by Alicia Avery RN) Father FHx: lung cancer smoker Mother FHx: stomach cancer Diabetes IDDM Type 2 Other Heart disease Hypertension No family history of adverse response to anesthesia Social History Smoking Status: Never smoker Second Hand Exposure: No; Do You Dip or Chew Tobacco: No; Hx Alcohol Use: No Hx Substance Use: No Preferred Language: Gambian Communication Ability: Effective Concrete Vibrator Operator Required: No Beliefs That Will Affect Care: None Current Living Situation: Family Current Living Situation Comment: lives with granddaughter Feels Safe at Home: Yes Assistive Devices: Walker Physical Exam 2 Physical Exam: Physical Exam: Constitutional: Well-developed, well-nourished, healthy-appearing, normal weight Psych: Awake, alert, and oriented 3 with normal affect and mood. Memory appears grossly intact, resting comfortably on examination Skin: No evidence of edema, erythema or skin breakdown at site of procedure Musculoskeletal: Head is normocephalic and atraumatic, gait unable to be observed secondary to patient condition. Lumbar: Lordotic curve: Loss of lumbar Lordosis Range of motion is decreased in all planes secondary to pain Tenderness: Tender over the axial midline Facet provocation: Negative bilaterally Straight leg raise: Negative bilaterally Strength: Strength is equal bilaterally with 5 out of 5 strength in all planes Sensation of lower extremities: Intact bilaterally Deep tendon reflexes: Rated at 2/4 in bilateral patellar and Achilles tendons Myofascial spasm: No appreciable lumbar spasm. No discrete trigger points noted Greater trochanters: Nontender bilaterally Sacroiliac joints: Nontender bilaterally. Negative Gaenslen's test bilaterally. Negative FADIR. Negative FARZAD. Negative compression test. No appreciable leg length discrepancy Pathologic reflexes noted: None Skin: No rashes, lesions, ulcers, or induration noted Neuro: No nystagmus noted, the tongue is midline Results (Pain Clinic) Diagnostic Review MRI: reports reviewed MRI Findings: EXAM MRI scan of the lumbar without contrast - 09/30/2024. HISTORY 74 years old female with worsening low back pain. TECHNIQUE Sagittal T1, T2, and STIR; coronal T2; axial T1 and T2-weighted images of the lumbar spine were obtained. COMPARISON MRI scan of the lumbar spine dated 02/25/2008. FINDINGS Significant upper lumbar dextroscoliosis is noted with a grade 1 rightward listhesis of L3 on L4. The lumbar lordosis is maintained. Partial ankylosis of L1 and L2 vertebral body is appreciated on the left side. No evidence of fracture, subluxation, or destructive lesion is seen. Small chronic Schmorl's nodes are present at multiple levels. Desiccation and loss of height of different degree of all intervertebral discs is noted. The imaged lower spinal cord is unremarkable, and the conus medullaris terminates normally at L1 level. The nerve roots of the cauda equina are appropriately arrayed within thecal sac without thickening or clumping. The prespinal and paraspinal soft tissues are within normal limits. No significant abnormalities are detected in the imaged abdominal and pelvic structures. Degenerative changes are present in the lumbar spine. T12-L1: Mild diffuse disc bulging, bilateral facet arthropathy, and ligamentum flavum thickening are seen without spinal canal stenosis or neural foraminal narrowing. Bilateral facet arthropathy is noted without spinal canal stenosis or neural foraminal narrowing. L2-3: Mild diffuse disc bulging and bilateral facet arthropathy/hypertrophy are present without spinal canal stenosis or neural foraminal narrowing. L3-4: Diffuse disc bulging, bilateral facet arthropathy/hypertrophy, and ligamentum flavum thickening are causing mild to moderate spinal canal stenosis without significant neural foraminal narrowing. L4-5: Bilateral facet arthropathy/hypertrophy and ligamentum flavum thickening are seen without significant spinal canal stenosis or neural foraminal narrowing. L5-S1: Diffuse disc bulging, bilateral facet arthropathy/hypertrophy, and ligamentum flavum thickening are causing severe spinal canal stenosis and narrowing of the lateral recesses without neural foraminal narrowing. IMPRESSION IMPRESSION 1. Significant upper lumbar dextroscoliosis as described above. 2. Prominent multilevel multifactorial degenerative changes in the lumbar spine as detailed above. Severe spinal canal stenosis and narrowing of the lateral recesses at L5-S1 level. No significant neural foraminal narrowing at any level.
[2024-12-07] MEDS: ROSUVASTATIN CALCIUM 20 MG TAB PO SCH (09:44)
[2024-12-07] MEDS: CLOPIDOGREL BISULFATE 75 MG TAB PO SCH (09:44)
[2024-12-07] MEDS: lisinopril 10 MG TAB PO SCH (09:44)
[2024-12-07] MEDS: ESCITALOPRAM OXALATE 20 MG TAB PO SCH (09:44)
[2024-12-07] MEDS: CHECK fentaNYL PATCH PLACEMENT SCH (09:52)
[2024-12-07] MEDS: POLYETHYLENE (MIRALAX) 17 GM PACK PO PRN (09:57)
--- NOTE | 2024-12-07 11:27 | Electrocardiogram Report ---
Test Reason : Blood Pressure : */* mmHG Vent. Rate : 56 BPM Atrial Rate : 56 BPM P-R Int : 196 ms QRS Dur : 90 ms QT Int : 432 ms P-R-T Axes : 73 -38 44 degrees QTcB Int : 416 ms Sinus bradycardia Left axis deviation Abnormal ECG When compared with ECG of 15-Jul-2019 06:10, Vent. rate has decreased by 40 bpm Confirmed by John Kuhn ([id number]) on 12/07/2024 11:27:06 AM Referred By: REFERRED SELF Confirmed By: Jonh Kuhn
[2024-12-07] MEDS: ONDANSETRON INJ 2 MG/ML 2 ML VIAL IV PRN (12:57)
[2024-12-07] MEDS: SODIUM CHLORIDE 0.9% 1,000 ML IV ONE (13:38)
[2024-12-07] MEDS: BUPRENORPHINE 5 MCG/HR TDSY TD SCH (14:04)
--- NOTE | 2024-12-07 14:18 | Hospitalist Progress Note ---
Date of Service December 07, 2024 Assessment & Plan (1) Altered mental status: Plan: 74 year old female presenting to the emergency department with confusion and neck pain. Past medical history significant for Diabetes Type II, Hypertension, CKD Stage II, Hyperlipidemia, JULIO C, COPD, Esophageal reflux, Spinal stenosis, RLS, Insomnia, Parkinson's Major depressive disorder, and Bipolar disorder. Acute metabolic encephalopathy Likely due to polypharmacy, delirium Possible UTI Unknown baseline mental status --CT Head: No acute intracranial findings. 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 -- Urine culture noncontributory --Urine toxicology reviewed -- Percocet on hold --Fentanyl patch transition to Butrans Reorient frequently to minimize delirium Empirically on Rocephin, will discontinue after 3-day course Olanzapine on hold Chronic lumbar radiculopathy Suggest to have L5-S1 interlaminar epidural steroid injection--patient currently hesitant Appreciate pain management input Follows with pain management as outpatient PT OT, fall precautions Reported constipation Check KUB Continue MiraLAX as needed Further management based on KUB results (2) Neck pain: Plan: CT Neck:Cervical degenerative changes without fracture. Started on Medrol Dosepak Appreciate pain management input Continue PT OT (3) Cystitis: Plan: Management as above (4) HTN (hypertension): Plan: Currently hypotensive Hold lisinopril IV fluids Monitor blood pressure closely Mood disorder Continue BuSpar, escitalopram Also on trazodone Olanzapine on hold (5) DVT prophylaxis: Plan: DVT Px Lovenox SQ (6) Diabetes mellitus, type II: Plan: History of DM Type II with elevated A1C in the past. Most recent A1C in 09/2024 5.4. Metformin has not been refilled at home. No further intervention needed at this time. Plan CODE STATUS Full code Disposition PT OT prior to discharge Admission and Anticipated Discharge Date Admission Date: December 06, 2024 Subjective Patient is seen and examined at bedside Poor historian Noted to have nausea, vomiting Reported constipation tomorrow States having neck, back pain and lower extremity pain Discussed with pain management today Denies any chest pain, dyspnea, abdominal pain, dizziness Review of Systems Review of Systems: All systems reviewed & are unremarkable except as noted in Subjective Physical Exam Physical Exam: Physical Exam: Vitals signs as noted above General Appearance:Moderately built and nourished, no apparent distress Head: normocephalic, Atraumatic Eyes: normal inspection, EOMI Neck: supple, Trachea midline Respiratory/Chest: Normal breath sounds, CTA, No accessory muscle use Cardiovascular: S1, S2, No murmur Abdomen/GI:Soft, Non tender, Bowel sounds present Extremities/Musculoskeletal:normal inspection, no edema Neurologic/Psych:AAOX2, grossly no focal neurological deficits, hard of hearing Skin: normal color, warm Results & Data Results & Data Vital Signs (Past 12 Hours) Vital Signs Temp Pulse Pulse Resp BP BP Pulse Ox 12/07/24 13:09 83 101/63 93 12/07/24 11:44 36.7 C 78 18 94/63 L 102/67 93 12/07/24 07:53 36.7 C 58 L 18 131/82 94 12/07/24 03:32 36.7 C 56 L 18 124/82 94 O2 Del Method 12/07/24 13:09 Room Air 12/07/24 11:44 Room Air 12/07/24 07:53 Room Air 12/07/24 03:32 Room Air
--- NOTE | 2024-12-07 14:43 | XRay Report ---
KUB HISTORY: Acute nausea with vomiting nausea, vomiting COMPARISON: CT 05/12/2019 FINDINGS: Moderate fecal retention with mild gaseous distention of the large bowel. Mild gaseous dist ention of the stomach. Nonobstructive gas pattern Surgical suture material from prior gastric bypass. Unchanged venous calcification within the right mid abdomen at the level of L3. 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 No renal calculi. No ure teral calculi. No pneumoperitoneum or pneumatosis. No fracture. IMPRESSION: 1. Nonobstructive bowel gas pattern. 2. Suggested constipation with mild gaseous distention of the stomach and large bowel. ACT 112: Negative or not required by law. The above report was generated using voice recognition software. It may contain grammatical, syntax o r spelling errors. Electronically signed by: Vasquez Hutton M.D. 12/07/2024 2:42 PM
[2024-12-07] MEDS: CHECK BUPRENORPHINE PATCH SCH (16:14)
[2024-12-07] MEDS: DOCUSATE SODIUM 100 MG CAP PO SCH (18:12)
[2024-12-07] MEDS: SENNA 8.6 MG TAB PO SCH (19:37)
[2024-12-07] MEDS: POLYETHYLENE (MIRALAX) 17 GM PACK PO SCH (19:39)
[2024-12-07] MEDS: POLYETHYLENE (MIRALAX) 17 GM PACK ONE (20:02)
[2024-12-08] MEDS: methylPREDNISolone 4 MG TAB PO SCH (06:01)
[2024-12-08 07:24] LABS: Hematocrit (blood only) 35.9 % (37.0-47.0); Hemoglobin 12.3 g/dl (12.0-16.0); Mean Corpuscular Hemoglobin 31.5 pg (25.0-34.0); Mean Corpuscular Hgb Conc 34.3 g/dL (32.0-36.0); Mean Corpuscular Volume 91.8 fL (80.0-100.0); Mean Platelet Volume 9.1 fL (9.4-12.4); Platelet Count 168 K/uL (130-400); RDW Coefficient of Variation 12.9 % (11.5-14.5); RDW Standard Deviation 42.8 fL (36.4-46.3); Red Blood Count 3.91 M/uL (4.20-5.40); White Blood Count 8.53 K/ul (4.8-10.8)
[2024-12-08 07:41] LABS: BUN Creatinine Ratio 14.6 (10-20); Creatinine Clr Calc Pharmacy 56.7 ml/min; Potassium 4.3 mmol/L (3.5-5.1)
--- NOTE | 2024-12-08 16:31 | Hospitalist Progress Note ---
Date of Service December 08, 2024 Assessment & Plan (1) Altered mental status: Plan: 74 year old female presenting to the emergency department with confusion and neck pain. Past medical history significant for Diabetes Type II, Hypertension, CKD Stage II, Hyperlipidemia, JULIO C, COPD, Esophageal reflux, Spinal stenosis, RLS, Insomnia, Parkinson's Major depressive disorder, and Bipolar disorder. Acute metabolic encephalopathy Likely due to polypharmacy, delirium Possible UTI Unknown baseline mental status --CT Head: No acute intracranial findings. 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 -- Urine culture noncontributory --Urine toxicology reviewed -- Percocet on hold --Fentanyl patch transition to Butrans Reorient frequently to minimize delirium Empirically on Rocephin--3-day course Olanzapine on hold Reorient frequently to minimize delirium Chronic lumbar radiculopathy Suggest to have L5-S1 interlaminar epidural steroid injection Appreciate pain management input Follows with pain management as outpatient PT OT, fall precautions May need rehab placement Constipation KUB:Nonobstructive bowel gas pattern. Suggested constipation with mild gaseous distention of the stomach and large bowel. Continue bowel regimen (2) Neck pain: Plan: CT Neck:Cervical degenerative changes without fracture. Started on Medrol Dosepak Appreciate pain management input Continue PT OT (3) Cystitis: Plan: Management as above (4) HTN (hypertension): Plan: Currently hypotensive Hold lisinopril Received IV fluids Monitor blood pressure closely BP relatively low Mood disorder Continue BuSpar, escitalopram Also on trazodone Olanzapine on hold (5) DVT prophylaxis: Plan: DVT Px Lovenox SQ (6) Diabetes mellitus, type II: Plan: History of DM Type II with elevated A1C in the past. Most recent A1C in 09/2024 5.4. Metformin has not been refilled at home. Plan CODE STATUS Full code Disposition PT OT prior to discharge Admission and Anticipated Discharge Date Admission Date: December 06, 2024 Subjective Patient is seen and examined at bedside Poor historian No nausea, vomiting today Tolerating diet Continues to complain of low back pain today Denies any chest pain, dyspnea, abdominal pain, dizziness Discussed with palliative care today Review of Systems Review of Systems: All systems reviewed & are unremarkable except as noted in Subjective Physical Exam Physical Exam: Physical Exam: Vitals signs as noted above General Appearance:Moderately built and nourished, no apparent distress Head: normocephalic, Atraumatic Eyes: normal inspection, EOMI Neck: supple, Trachea midline Respiratory/Chest: Normal breath sounds, CTA, No accessory muscle use Cardiovascular: S1, S2, No murmur Abdomen/GI:Soft, Non tender, Bowel sounds present Extremities/Musculoskeletal:normal inspection, no edema Neurologic/Psych:AAOX2, grossly no focal neurological deficits, hard of hearing Skin: normal color, warm Results & Data Results & Data Vital Signs (Past 12 Hours) Vital Signs Temp Pulse Pulse Resp BP Pulse Ox O2 Del Method 12/08/24 16:17 36.7 C 67 16 105/65 98 Room Air 12/08/24 13:00 67 12/08/24 11:32 36.6 C 66 16 123/70 95 Room Air 12/08/24 07:36 36.6 C 58 L 16 132/64 97 Room Air Laboratory Results Short CBC 12/08/24 Range/Units 07:08 WBC 8.53 (4.8-10.8) K/ul Hgb 12.3 (12.0-16.0) g/dl Hct 35.9 L (37.0-47.0) % Plt Count 168 (130-400) K/uL BMP 12/08/24 07:08 Sodium 139 Potassium 4.3 Chloride 106 Carbon Dioxide 32 BUN 14 Creatinine 0.96 Glucose 117 H Calcium 9.0
[2024-12-09] MEDS ORDERED: CHLORASEPTIC (PHENOL) 1.4% SOLN 180 ML BTL MT PRN (05:53)
--- NOTE | 2024-12-09 05:56 | Communication Note ---
Date of Service: December 09, 2024
[2024-12-09] MEDS: methylPREDNISolone 4 MG TAB PO SCH (06:12)
[2024-12-09] MEDS: KETOROLAC TROMETHAMINE 15 MG/ML VIAL IV ONE (06:12)
[2024-12-09] MEDS: BENZONATATE 100 MG CAPSULE PO PRN (06:12)
--- NOTE | 2024-12-09 07:03 | XRay Report ---
EXAM: XR chest 1V portable CLINICAL HISTORY: Cough. TECHNIQUE: An X-ray image of the chest is obtained in AP projection. COMPARISON: 12/06/2024 chest x-ray. FINDINGS: Pulmonary Parenchyma: Increased bronchovascular markings. No evidence of consolidation, collapse, or focal opacities. No pulmonary nodules are identified. No evidence of pleural effusion . Elevated right hemidiaphragm. Heart and Mediastinum: Cardiomegaly. No mediastinal widening or masses. No hilar or mediastinal lymphadenopathy. Bony Thorax: Right shoulder arthroplasty. Soft Tissues: Soft tissues overlying the chest wall are unremarkable. Multiple ECG wires. IMPRESSION: 1. Increased bronchovascular markings. Stable. 2. Cardiomegaly. Stable. 3. Right shoulder arthroplasty.Stable. 4. Elevated right hemidiaphragm. Stable. Electronically signed by Kranthi Grayson 12-09-2024 07:03 AM
[2024-12-09 07:28] LABS: Influenza A virus by PCR Negative (Neg); Influenza B virus by PCR Negative (Neg); RSV by PCR Negative (Neg); SARS CoV2 RNA(COVID-19) Ceph NEGATIVE (Negative)
[2024-12-09] MEDS ORDERED: bisacodyL 10 MG SUPP PR PRN (12:32)
[2024-12-09] MEDS ORDERED: ONDANSETRON ORAL SOLN 0.8 MG/1 ML PO PRN (13:31)
--- NOTE | 2024-12-09 14:01 | XRay Report ---
KUB HISTORY: Nausea, vomiting COMPARISON STUDY: 12/07/2024 FINDINGS: There is no evidence of obstruction. The prominent stool in the left colon has been evacuat ed. There is mild gaseous distention of the hepatic flexure which is interposed between the liver and the diaphragm. Surgical navya are identified in the stomach. Right upper quadrant calcifications a re noted. Severe degenerative changes are seen in the scoliotic lumbar spine. 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 IMPRESSION: Nonspecific bowel gas pattern. ACT 112: Negative or not required by law. The above report was generated using voice recognition software. It may contain grammatical, syntax o r spelling errors. Electronically signed by: Chana Ross M.D. 12/09/2024 1:59 PM
[2024-12-09] MEDS: DOXYCYCLINE HYCLATE 100 MG CAP PO SCH (14:11)
--- NOTE | 2024-12-09 15:58 | Hospitalist Progress Note ---
Date of Service December 09, 2024 Assessment & Plan (1) Altered mental status: Plan: 74 year old female presenting to the emergency department with confusion and neck pain. Past medical history significant for Diabetes Type II, Hypertension, CKD Stage II, Hyperlipidemia, JULIO C, COPD, Esophageal reflux, Spinal stenosis, RLS, Insomnia, Parkinson's Major depressive disorder, and Bipolar disorder. Acute metabolic encephalopathy Likely due to polypharmacy, delirium Possible UTI Unknown baseline mental status --CT Head: No acute intracranial findings. 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 -- Urine culture noncontributory --Urine toxicology reviewed -- Percocet on hold --Fentanyl patch transitioned to Butrans Reorient frequently to minimize delirium Empirically on Rocephin--completed 3-day course Olanzapine on hold Reorient frequently to minimize delirium Patient not interested in rehab placement Chronic lumbar radiculopathy Suggest to have L5-S1 interlaminar epidural steroid injection Appreciate pain management input Follows with pain management as outpatient for epidural injection PT OT, fall precautions Patient not interested in rehab placement Acute bronchitis Chest x-ray showed no signs of pneumonia COVID, influenza, RSV negative Empirically started on doxycycline Saturating well on room air Constipation KUB:Nonobstructive bowel gas pattern. Suggested constipation with mild gaseous distention of the stomach and large bowel. Continue bowel regimen KUB today showed no signs of obstruction (2) Neck pain: Plan: CT Neck:Cervical degenerative changes without fracture. Started on Medrol Dosepak Appreciate pain management input Continue PT OT (3) Cystitis: Plan: Management as above (4) HTN (hypertension): Plan: Hypotensive on presentation Blood pressure improved Resume lisinopril Steroids likely contributing to elevated blood pressure currently as well Monitor blood pressure closely Will adjust medications as needed Mood disorder Continue BuSpar, escitalopram Also on trazodone Resume olanzapine (5) DVT prophylaxis: Plan: DVT Px Lovenox SQ (6) Diabetes mellitus, type II: Plan: History of DM Type II with elevated A1C in the past. Most recent A1C in 09/2024 5.4. Metformin has not been refilled at home. Plan CODE STATUS Full code Disposition Likely plan to be discharged home with home health Patient declined rehab Admission and Anticipated Discharge Date Admission Date: December 06, 2024 Subjective Patient is seen and examined at bedside Poor historian States having none expectorant cough started overnight Also had an nausea, vomiting today KUB showed no signs of obstruction Chest x-ray showed no signs of pneumonia Continues to have lower back pain Denies any chest pain, dyspnea, abdominal pain, dizziness Review of Systems Review of Systems: All systems reviewed & are unremarkable except as noted in Subjective Physical Exam Physical Exam: Physical Exam: Vitals signs as noted above General Appearance:Moderately built and nourished, no apparent distress Head: normocephalic, Atraumatic Eyes: normal inspection, EOMI Neck: supple, Trachea midline Respiratory/Chest: Normal breath sounds, CTA, No accessory muscle use Cardiovascular: S1, S2, No murmur Abdomen/GI:Soft, Non tender, Bowel sounds present Extremities/Musculoskeletal:normal inspection, no edema Neurologic/Psych:AAOX2, grossly no focal neurological deficits, hard of hearing Skin: normal color, warm Results & Data Results & Data Vital Signs (Past 12 Hours) Vital Signs Temp Pulse Pulse Resp BP Pulse Ox O2 Del Method 12/09/24 15:52 37.3 C 60 18 143/81 H 97 Room Air 12/09/24 14:00 86 12/09/24 11:11 36.9 C 62 18 129/81 99 Room Air 12/09/24 08:40 53 L 12/09/24 07:32 37.1 C 54 L 18 162/103 H 94 Room Air
[2024-12-09] MEDS: OLANZapine 10 MG TAB PO SCH (21:53)
[2024-12-10] MEDS: PRAMIPEXOLE DIHYDROCHLO 0.25 MG TAB PO STA (02:43)
[2024-12-10 07:05] VITALS: RESP 18; TEMP 97.5
[2024-12-10 07:58] LABS: BUN Creatinine Ratio 12.2 (10-20); Calcium 9.5 mg/dl (8.6-10.3); Creatinine Clr Calc Pharmacy 55.1 ml/min; Magnesium 1.8 mg/dl (1.7-2.4); Potassium 3.8 mmol/L (3.5-5.1)
[2024-12-10] MEDS: ONDANSETRON 4 MG OD TAB PO PRN (09:09)
[2024-12-10] MEDS: methylPREDNISolone 4 MG TAB PO SCH (09:11)
[2024-12-10 10:58] VITALS: O2SAT 98
[2024-12-10] MEDS ORDERED: DOCUSATE SODIUM 100 MG CAP PO PRN (12:25)
[2024-12-10] MEDS ORDERED: POLYETHYLENE (MIRALAX) 17 GM PACK PO PRN (12:25)
[2024-12-10] MEDS ORDERED: SENNA 8.6 MG TAB PO PRN (12:25)
--- NOTE | 2024-12-10 12:51 | Hospitalist Progress Note ---
Date of Service December 10, 2024 Assessment & Plan (1) Altered mental status: Plan: 74 year old female presenting to the emergency department with confusion and neck pain. Past medical history significant for Diabetes Type II, Hypertension, CKD Stage II, Hyperlipidemia, JULIO C, COPD, Esophageal reflux, Spinal stenosis, RLS, Insomnia, Parkinson's Major depressive disorder, and Bipolar disorder. Acute metabolic encephalopathy Likely due to polypharmacy, delirium Possible UTI Unknown baseline mental status --CT Head: No acute intracranial findings. 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 -- Urine culture noncontributory --Urine toxicology reviewed -- Percocet on hold --Fentanyl patch transitioned to Butrans Reorient frequently to minimize delirium Empirically on Rocephin--completed 3-day course Olanzapine resumed Reorient frequently to minimize delirium Mental status seems to be back to baseline Plan to discharge home today as patient not interested in rehab Chronic lumbar radiculopathy Suggest to have L5-S1 interlaminar epidural steroid injection Appreciate pain management input Follows with pain management as outpatient for epidural injection PT OT, fall precautions Patient not interested in rehab placement Acute bronchitis Chest x-ray showed no signs of pneumonia COVID, influenza, RSV negative Empirically started on doxycycline Saturating well on room air Constipation KUB:Nonobstructive bowel gas pattern. Suggested constipation with mild gaseous distention of the stomach and large bowel. Continue bowel regimen KUB today showed no signs of obstruction Resolved (2) Neck pain: Plan: CT Neck:Cervical degenerative changes without fracture. Started on Medrol Dosepak Appreciate pain management input Continue PT OT (3) Cystitis: Plan: Management as above (4) HTN (hypertension): Plan: Hypotensive on presentation Blood pressure improved Resume lisinopril adjust medications as needed Mood disorder Continue BuSpar, escitalopram Also on trazodone Resume olanzapine Sinus bradycardia Noted while asleep Asymptomatic (5) DVT prophylaxis: Plan: DVT Px Lovenox SQ (6) Diabetes mellitus, type II: Plan: History of DM Type II with elevated A1C in the past. Most recent A1C in 09/2024 5.4. Metformin has not been refilled at home. Plan CODE STATUS Full code Disposition Likely plan to be discharged home with home health Patient declined rehab Admission and Anticipated Discharge Date Admission Date: December 06, 2024 Subjective Patient is seen and examined at bedside Poor historian No new complaints today Nausea, vomiting resolved Tolerating diet Still has lower back pain Not interested in rehab placement Prefers to be discharged home today Sinus bradycardia on monitor Denies any chest pain, dyspnea, abdominal pain, dizziness Review of Systems Review of Systems: All systems reviewed & are unremarkable except as noted in Subjective Physical Exam Physical Exam: Physical Exam: Vitals signs as noted above General Appearance:Moderately built and nourished, no apparent distress Head: normocephalic, Atraumatic Eyes: normal inspection, EOMI Neck: supple, Trachea midline Respiratory/Chest: Normal breath sounds, CTA, No accessory muscle use Cardiovascular: S1, S2, No murmur Abdomen/GI:Soft, Non tender, Bowel sounds present Extremities/Musculoskeletal:normal inspection, no edema Neurologic/Psych:AAOX2, grossly no focal neurological deficits, hard of hearing Skin: normal color, warm Results & Data Results & Data Vital Signs (Past 12 Hours) Vital Signs Temp Pulse Pulse Resp BP Pulse Ox O2 Del Method 12/10/24 10:57 36.4 C L 49 L 18 120/74 98 Room Air 12/10/24 10:57 Room Air 12/10/24 07:05 36.4 C L 52 L 18 144/71 H 97 Room Air 12/10/24 06:53 45 L 12/10/24 03:22 36.7 C 65 20 174/92 H 94 Room Air Laboratory Results [facility] 12/10/24 06:51 Sodium 143 Potassium 3.8 Chloride 107 Carbon Dioxide 34 H BUN 12 Creatinine 0.98 Glucose 80 Calcium 9.5
--- NOTE | 2024-12-10 13:01 | Discharge Summary ---
Date of Service December 10, 2024 Admission HPI Per Admitting Provider 74 year old female presenting to the emergency department with confusion and neck pain. Past medical history significant for Diabetes Type II, Hypertension, CKD Stage II, Hyperlipidemia, JULIO C, COPD, Esophageal reflux, Spinal stenosis, RLS, Insomnia, Parkinson's Major depressive disorder, and Bipolar disorder. She arrived to the emergency department via EMS, who was contacted by a medical professional concerned about the patient's level of confusion. 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 Chest Xray was unremarkable. Urine analysis showing leukocytes, blood, and bacteria. Urine culture is pending. No evidence of leukocytosis, hyper/hypoglycemia. Lactate levels normal. Urine tox positive fentanyl. Patient is a poor historian of her present illness, however, she reports neck, back, and bilateral leg pain that is "shooting down the middle of my back". She initially denied a recent fall, then reported she fell at home 2 weeks ago. It is unknown whether the fall was witnessed. Associated symptoms include vomiting once this morning upon awakening. When asked about urinary symptoms, she thinks she is urinating more than usual and is now wearing depends for urinary incontinence. She denies illnesses, fevers, weight changes, dizziness, chest pain, palpitations, abdominal pain, lower leg swelling. She reports having using a fentanyl patch for back pain but doesn't experience pain relief. Patient has no family or caregiver at the bedside. Patient's sister was contacted regarding the hospital visit and provided update on living situation and condition. Admission Exam Per Admitting Provider GEN: Healthy appearing, well-developed, NAD. PSYCH: Oriented to place only. Not oriented to current situation. Difficulty following directions. Unable to identify family names and phone numbers. Mood and affect appropriate. Noncombative and cooperative. HEENT -Head: NC/AT; -Eyes: Constricted pupils, 1-2mm, sluggish reaction to light, EOMI. No discharge or redness; -Ears: External ears are normal. Normal TMs. -Nose: Normal nares. -Mouth and throat: MMM. Normal gums, mucosa, palate,. Dentures intact NECK: No masses. Guarding neck movement to left side. No evidence of nuchal rigidity CV: RRR, no m/r/g. LUNGS: CTAB, no w/r/c. ABD: Soft, NT/ND, NBS, no masses or organomegaly. : Wearing depends. SKIN: Warm, well perfused. No skin rashes or abnormal lesions. MSK: No deformities, Normal gait. EXT: No clubbing, cyanosis, or edema. NEURO: Muscle strength 3/5 to RUE, LUE, and LLE, 2/5 RLE. Normal tone. No focal deficits. Principal Diagnosis Acute metabolic encephalopathy Chronic lumbar radiculopathy Acute bronchitis Discharge Data Allergies Allergy/AdvReac Type Severity Reaction Status Date / Time latex Allergy Unknown localized Verified 09/13/19 09:44 rash Penicillins Allergy Unknown "bottom Verified 09/13/19 09:44 gets sore" Consultations 12/06/24 16:04 ED Decision to Admit Stat 12/06/24 19:19 Consult Pain Management Routine Procedures Performed Laboratory Results WBC 8.53 K/ul (4.8-10.8) 12/08/24 07:08 RBC 3.91 M/uL (4.20-5.40) L 12/08/24 07:08 Hgb 12.3 g/dl (12.0-16.0) 12/08/24 07:08 Hct 35.9 % (37.0-47.0) L 12/08/24 07:08 MCV 91.8 fL (80.0-100.0) 12/08/24 07:08 MCH 31.5 pg (25.0-34.0) 12/08/24 07:08 MCHC 34.3 g/dL (32.0-36.0) 12/08/24 07:08 RDW Std Deviation 42.8 fL (36.4-46.3) 12/08/24 07:08 RDW Coeff of Diego 12.9 % (11.5-14.5) 12/08/24 07:08 Plt Count 168 K/uL (130-400) 12/08/24 07:08 MPV 9.1 fL (9.4-12.4) L 12/08/24 07:08 Immature Gran % (Auto) 0.2 % 12/06/24 12:47 Neut % (Auto) 63.6 % 12/06/24 12:47 Lymph % (Auto) 24.9 % 12/06/24 12:47 [place] % (Auto) 6.6 % 12/06/24 12:47 Eos % (Auto) 3.9 % 12/06/24 12:47 Baso % (Auto) 0.8 % 12/06/24 12:47 Neut # (Auto) 5.43 K/uL (1.40-6.50) 12/06/24 12:47 Lymph # (Auto) 2.12 K/uL (1.20-3.40) 12/06/24 12:47 [place] # (Auto) 0.56 K/uL (0.11-0.59) 12/06/24 12:47 Eos # (Auto) 0.33 K/uL (0.00-0.50) 12/06/24 12:47 Baso # (Auto) 0.07 K/uL (0.00-0.20) 12/06/24 12:47 Immature Gran # (Auto) 0.02 K/uL (0.01-0.20) 12/06/24 12:47 Sodium 143 mmol/L (136-145) 12/10/24 06:51 Potassium 3.8 mmol/L (3.5-5.1) 12/10/24 06:51 Chloride 107 mmol/L (98-107) 12/10/24 06:51 Carbon Dioxide 34 mmol/L (21-32) H 12/10/24 06:51 Anion Gap 2 (3-11) L 12/10/24 06:51 BUN 12 mg/dl (6-23) 12/10/24 06:51 Creatinine 0.98 mg/dl (0.6-1.2) 12/10/24 06:51 Est Cr Clr Drug Dosing 55.1 ml/min 12/10/24 06:51 eGFR 60.57 12/10/24 06:51 BUN/Creatinine Ratio 12.2 (10-20) 12/10/24 06:51 Glucose 80 mg/dl (70-99(Fasting)) 12/10/24 06:51 POC Glucose 129 mg/dl (70-99) H 12/10/24 10:28 Lactate 1.1 mmol/L (0.4-2.0) 12/06/24 14:18 Calcium 9.5 mg/dl (8.6-10.3) 12/10/24 06:51 Magnesium 1.8 mg/dl (1.7-2.4) 12/10/24 06:51 Total Bilirubin 0.5 mg/dl (0.2-1.0) 12/06/24 12:47 AST 15 U/L (13-39) 12/06/24 12:47 ALT 8 U/L (7-52) 12/06/24 12:47 Alkaline Phosphatase 52 U/L (34-104) 12/06/24 12:47 Troponin I High Sens 3.9 pg/ml (0-14) 12/06/24 12:47 Total Protein 6.5 gm/dl (6.0-8.3) 12/06/24 12:47 Albumin 3.9 gm/dl (3.4-5.0) 12/06/24 12:47 Globulin 2.6 gm/dl (2.5-4.0) 12/06/24 12:47 Albumin/Globulin Ratio 1.5 (0.9-2) 12/06/24 12:47 Procalcitonin < 0.02 ng/ml (0-0.5) 12/10/24 06:51 TSH 4.049 uIu/ml (0.300-4.500) 12/06/24 12:47 Urine Color Yellow 12/06/24 Unknown Urine Appearance Clear (Clear) 12/06/24 Unknown Urine pH 5.5 (4.5-7.5) 12/06/24 Unknown Ur Specific Perry 1.021 (1.000-1.030) 12/06/24 Unknown Urine Protein Trace (Negative) H 12/06/24 Unknown Urine Glucose (UA) Negative (Negative) 12/06/24 Unknown Urine Ketones Trace (Negative) H 12/06/24 Unknown Urine Blood Trace (Negative) H 12/06/24 Unknown Urine Nitrite Negative (Negative) 12/06/24 Unknown Urine Bilirubin Negative (Negative) 12/06/24 Unknown Urine Urobilinogen Negative (Negative) 12/06/24 Unknown Ur Leukocyte Esterase 1+ (Negative) H 12/06/24 Unknown Urine WBC (Auto) 6-10 /hpf (0-5) H 12/06/24 Unknown Urine RBC (Auto) 6-10 /hpf (0-2) H 12/06/24 Unknown U Hyaline Cast (Auto) 0-2 /lpf (0-2) 12/06/24 Unknown U Epithel Cells (Auto) 11-20 /hpf (0-2) H 12/06/24 Unknown Urine Bacteria (Auto) 3+ (None Seen) H 12/06/24 Unknown Urine Opiates Screen Neg (Neg) 12/06/24 13:42 Ur Methadone, Qual Neg (Neg) 12/06/24 13:42 Urine Fentanyl Screen Pos (Neg) H 12/06/24 13:42 Urine Barbiturates Neg (Neg) 12/06/24 13:42 Ur Phencyclidine (PCP) Neg (Neg) 12/06/24 13:42 U Amphetamin/Meth Scrn Neg (Neg) 12/06/24 13:42 MDMA (Ecstasy) Screen Pos (Neg) H 12/06/24 13:42 U Benzodiazepines Scrn Neg (Neg) 12/06/24 13:42 Ur Cocaine Metabolite Neg (Neg) 12/06/24 13:42 U Marijuana (THC) Screen Neg (Neg) 12/06/24 13:42 Adenovirus (PCR) Not Detected (NotDetected) 12/06/24 13:20 B. pertussis DNA (PCR) Not Detected (NotDetected) 12/06/24 13:20 B.parapertussis DNA PCR Not Detected (NotDetected) 12/06/24 13:20 C. pneumoniae DNA (PCR) Not Detected (NotDetected) 12/06/24 13:20 Coronavirus OC43 (PCR) Not Detected (NotDetected) 12/06/24 13:20 Coronavirus HKU1 (PCR) Not Detected (NotDetected) 12/06/24 13:20 Coronavirus 229E (PCR) Not Detected (NotDetected) 12/06/24 13:20 SARS-CoV-2 (PCR) NEGATIVE (Negative) 12/09/24 06:00 Coronavirus NL63 (PCR) Not Detected (NotDetected) 12/06/24 13:20 Human Metapneumovir PCR Not Detected (NotDetected) 12/06/24 13:20 Influenza Type A (PCR) Negative (Neg) 12/09/24 06:00 Influenza Type B (PCR) Negative (Neg) 12/09/24 06:00 M. pneumoniae (PCR) Not Detected (NotDetected) 12/06/24 13:20 Parainfluenza 1 (PCR) Not Detected (NotDetected) 12/06/24 13:20 Parainfluenza 2 (PCR) Not Detected (NotDetected) 12/06/24 13:20 Parainfluenza 3 (PCR) Not Detected (NotDetected) 12/06/24 13:20 Parainfluenza 4 (PCR) Not Detected (NotDetected) 12/06/24 13:20 RSV (RT-PCR) Negative (Neg) 12/09/24 06:00 RSV (PCR) Not Detected (NotDetected) 12/06/24 13:20 Entero/Rhino (PCR) Not Detected (NotDetected) 12/06/24 13:[address] 12/06/24 13:01 CT SCAN OF THE BRAIN WITHOUT IV CONTRAST CLINICAL HISTORY: Altered mental status. COMPARISON STUDY: MRI of the brain April 23, 2019. Head CT May 12, 2019. TECHNIQUE: Unenhanced axial CT scan of the brain was performed from the vertex to the skull base. A dose lowering technique was utilized adhering to the principles of ALARA. CT DOSE: 625.8 mGy.cm FINDINGS: Brain parenchyma: No acute intracranial hemorrhage, midline shift or mass effect is present. Wood-white matter differentiation is preserved. There are no extra- axial fluid collections. There are no findings to suggest acute dural sinus thrombosis or acute territorial infarct. 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 A suspected old infarct within the right cerebellar hemisphere was also present on prior exam. A 1.8 cm hypodensity within the right occipital lobe on image 17 of 32 is new since prior exam. White matter hypodensities favor small vessel disease. Ventricles, sulci, cisterns: There is no hydrocephalus. The basal cisterns are patent. Calvarium: Unremarkable. Sinuses and mastoids: The visualized paranasal sinuses are clear. The mastoid air cells are well pneumatized. Orbits: The bony orbits are grossly intact. IMPRESSION: 1. No acute intracranial findings. 2. 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, as described above. ACT 112: Negative or not required by law. Electronically signed by: James Maloney M.D. 12/06/2024 1:[address] 12/06/24 17:41 EXAM: CT Cervical Spine Without Intravenous Contrast INDICATION: Pain in TECHNIQUE: Axial computed tomography images of the cervical spine without intravenous contrast. Sagittal and coronal reformatted images were created and reviewed. This CT exam was performed using one or more of the following dose reduction techniques: automated exposure control, adjustment of the mA and/or kV according to patient size, and/or use of iterative reconstruction technique. COMPARISON: 04/23/2019 FINDINGS: Limitations: None. Vertebrae: Stable cervical straightening with slight flexion at C4-C5. Stable prominent C4-C5 uncal spurring and moderate spondylosis C4-C7. There is stable degenerative grade 1 anterolisthesis of C4 on C5. Stable facet arthrosis at all levels. No fracture. Discs/spinal canal/neural foramina: Significant increase in moderate to marked disc space narrowing C4-C5, C5-C6 and C6-C7. There is mild ventral canal and moderate left foraminal stenosis C4-C5 and C5-C6. Soft tissues: No significant abnormality noted. Lung apices: No significant abnormality noted. IMPRESSION: Cervical degenerative changes without fracture. ACT 112: N/A Electronically signed by Yuliana Medina 12-06-2024 6:36 PM Chest X-Ray 12/09/24 05:55 EXAM: XR chest 1V portable CLINICAL HISTORY: Cough. TECHNIQUE: An X-ray image of the chest is obtained in AP projection. COMPARISON: 12/06/2024 chest x-ray. FINDINGS: Pulmonary Parenchyma: Increased bronchovascular markings. No evidence of consolidation, collapse, or focal opacities. No pulmonary nodules are identified. No evidence of pleural effusion . Elevated right hemidiaphragm. Heart and Mediastinum: Cardiomegaly. No mediastinal widening or masses. No hilar or mediastinal lymphadenopathy. Bony Thorax: Right shoulder arthroplasty. Soft Tissues: Soft tissues overlying the chest wall are unremarkable. Multiple ECG wires. IMPRESSION: 1. Increased bronchovascular markings. Stable. 2. Cardiomegaly. Stable. 3. Right shoulder arthroplasty.Stable. 4. Elevated right hemidiaphragm. Stable. Electronically signed by Kranthi Grayson 12-09-2024 07:03 AM KUB X-Ray 12/09/24 13:22 KUB HISTORY: Nausea, vomiting COMPARISON STUDY: 12/07/2024 FINDINGS: There is no evidence of obstruction. The prominent stool in the left colon has been evacuated. There is mild gaseous distention of the hepatic flexure which is interposed between the liver and the diaphragm. Surgical navya are identified in the stomach. Right upper quadrant calcifications are noted. Severe degenerative changes are seen in the scoliotic lumbar spine. 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 IMPRESSION: Nonspecific bowel gas pattern. ACT 112: Negative or not required by law. The above report was generated using voice recognition software. It may contain grammatical, syntax or spelling errors. Electronically signed by: Chana Ross M.D. 12/09/2024 1:59 PM Ordered Studies 12/06/24 13:01 CT head/brain wo con Stat 12/06/24 17:41 CT neck [CT cervical spine wo con] Stat Hospital Course (1) Altered mental status: 74 year old female presenting to the emergency department with confusion and neck pain. Past medical history significant for Diabetes Type II, Hypertension, CKD Stage II, Hyperlipidemia, JULIO C, COPD, Esophageal reflux, Spinal stenosis, RLS, Insomnia, Parkinson's Major depressive disorder, and Bipolar disorder. Acute metabolic encephalopathy Likely due to polypharmacy, delirium Possible UTI Unknown baseline mental status --CT Head: No acute intracranial findings. 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 -- Urine culture noncontributory --Urine toxicology reviewed -- Percocet on hold --Fentanyl patch transitioned to Butrans Reorient frequently to minimize delirium Empirically on Rocephin--completed 3-day course Olanzapine resumed Reorient frequently to minimize delirium Mental status seems to be back to baseline Plan to discharge home today as patient not interested in rehab Chronic lumbar radiculopathy Suggest to have L5-S1 interlaminar epidural steroid injection Appreciate pain management input Follows with pain management as outpatient for epidural injection PT OT, fall precautions Patient not interested in rehab placement Acute bronchitis Chest x-ray showed no signs of pneumonia COVID, influenza, RSV negative Empirically started on doxycycline Saturating well on room air Constipation KUB:Nonobstructive bowel gas pattern. Suggested constipation with mild gaseous distention of the stomach and large bowel. Continue bowel regimen KUB today showed no signs of obstruction Resolved (2) Neck pain: CT Neck:Cervical degenerative changes without fracture. Started on Medrol Dosepak Appreciate pain management input Continue PT OT (3) Cystitis: Management as above (4) HTN (hypertension): Hypotensive on presentation Blood pressure improved Resume lisinopril adjust medications as needed Mood disorder Continue BuSpar, escitalopram Also on trazodone Resume olanzapine Sinus bradycardia Noted while asleep Asymptomatic (5) DVT prophylaxis: DVT Px Lovenox SQ (6) Diabetes mellitus, type II: History of DM Type II with elevated A1C in the past. Most recent A1C in 09/2024 5.4. Metformin has not been refilled at home. Plan CODE STATUS Full code Disposition Likely plan to be discharged home with home health Patient declined rehab Total Time Total Time Spent Total Time Spent (In Minutes): 47 minutes Discharge Plan Discharge Items Patient Disposition: Home - Home Health Services Reason For Visit: CONFUSION Discharge Diagnosis: Acute metabolic encephalopathy Chronic lumbar radiculopathy Acute bronchitis Activity: Per Instructions section Exercise/Sports: Gradually increase as tolerated Non-emergency contact: Primary Care Provider and Specialist Call non-emergency contact if: you have any medication questions, your symptoms worsen, your pain is concerning for you and you have a fever Follow-up/Referrals: Kristie Dangelo MD [Primary Care Provider] - (Date & Time 12/15/2024 2:00 PM Provider: Lise Ho MD Family Medicine [facility] ) Kaity Damian PA-C [Outside Practitioners] - (The office will call you with an appointment.) Diet: Heart Healthy Diet Texture: Easy to Chew Addtl Attending Provider Instructions: Follow-up with your primary care physician Dr. Ruperto Harvey as scheduled Follow-up with your pain management for epidural injection for your back pain as advised - Complete antibiotic course doxycycline as prescribed for bronchitis- --Please stop using fentanyl patch as previously prescribed --You started on Butrans patch for better pain control. Follow-up with pain management for further recommendations. Seek immediate medical attention if your symptoms reoccur or worsen Please review medication list provided on discharge for any medication changes as instructed. Please call if you have any questions or problems. You can reach a [facility] hospitalist on duty at [facility] 24 hours a day by calling [phone] Pending Studies at Discharge: No Stand-Alone Forms: My [facility], Smoking Cessation Medications and DC Order Prescriptions: New doxycycline hyclate 100 mg Capsule 100 mg PO BID Qty: 7 0RF buprenorphine [Butrans] 5 mcg/hour Patch Weekly 1 patch transdermal Q7D Qty: 4 0RF polyethylene glycol 3350 [Miralax] 17 gram Powder In Packet 17 g PO DAILY PRN (Reason: constipation) Qty: 30 0RF methylprednisolone 4 mg Tablet 4 mg PO DAILY Qty: 2 0RF Continued pramipexole 0.5 mg Tablet 0.5 mg PO HS Rx Instructions: [facility] escitalopram oxalate 20 mg tablet 20 mg PO QAM Rx Instructions: per [facility] trazodone 150 mg tablet 300 mg PO HS Rx Instructions: [facility] olanzapine 10 mg tablet 10 mg PO HS Rx Instructions: [facility] buspirone 10 mg tablet 10 mg PO 2XD Rx Instructions: [facility] clopidogrel 75 mg tablet 75 mg PO DAILY Rx Instructions: [facility] rosuvastatin 20 mg tablet 20 mg PO DAILY Rx Instructions: [facility] lisinopril 10 mg tablet 10 mg PO DAILY Discharge Orders: Discharge Order (Routine); Ordered 12/10/24 Ordered By: Abdiel Jolly Admission Data Admit Date/Time: 12/06/24 17:04 Attending Provider: Abdiel Jolly Admit Provider: Mary Ellen Johnson Primary Care Provider: Kristie Dangelo. Other Providers: Mary Ellen Johnson; Rekha Brown; [facility],Home Healthcare; [facility]
[2024-12-10 13:07] VITALS: BP 102/67; PULSE 78
[2024-12-10 17:48] LABS: MDA negative; MDEA negative; MDMA (Ecstasy) Urine, Confirm negative; Norfentanyl, Urine >250.0 ng/mL (<0.5); medMATCH Fentanyl, Urine DNR; medMATCH Norfentanyl, Urine DNR
[2024-12-11] MEDS ORDERED: methylPREDNISolone 4 MG TAB PO SCH (07:00)
== END 2024-12-10 13:37 | disposition home health service (06) | DRG 689 ==
LOC: ED 12:34 → 2W 17:04 → SUATTDRO 17:04 → 2W 18:52